=== PATIENT | male | born 1980 | race African-American/Black ===

== ENCOUNTER 2016-07-25 16:53 | Inpatient (IN) | payer OTHER ==
[~2016-07-25] VITALS: Ht 182.9 cm; Wt 66.8 kg
[2016-07-25] MEDS ORDERED: ONDANSETRON INJ 2 MG/ML 2 ML VIAL IV STA (17:15)
[2016-07-25] MEDS ORDERED: SODIUM CHLORIDE 0.9% 1000ML 1,000 ML IV STA (17:15)
[2016-07-25] MEDS ORDERED: MoRPHine SULFATE 10 MG/ML CARP/VIAL IV STA (17:15)
[2016-07-25] MEDS ORDERED: LEVAQUIN 750MG / 150ML D5W IV STA (17:22)
[2016-07-25] MEDS ORDERED: METRONIDAZOLE 500MG / 100ML NSS IV STA (17:22)
--- NOTE | 2016-07-25 17:25 | EMERGENCY ROOM VISIT NOTE ---
ED Visit Note First contact with patient: 17:03 This Patient was discussed with the physician leasing assistant, Faisal Zamora PA-C. The pertinent historical and physical exam findings were confirmed. I agree with the studies ordered and with the interpretations of these studies. I agree with the disposition and care plan.
[2016-07-25] MEDS ORDERED: OPTIRAY 320 IV PRN (17:30)
[2016-07-25 17:34] LABS: BASO % 0.1 %; BASO ABS # 0.01 K/uL (0-0.2); COMPLETE YES; EOS % 1.4 %; HEMATOCRIT 38.2 % (42-52); IG% 0.4 %; LYMPH % 29.5 %; LYMPH ABS # 3.22 K/uL (1.2-3.4); MEAN CELL VOLUME 96.7 fL (80-100); MEAN CORPUSCULAR HEMOGLOBIN 33.4 pg (25-34); MEAN CORPUSCULAR HGB CONC 34.6 g/dl (32-36); MEAN PLATELET VOLUME 8.7 fL (7.4-10.4); MONO % 6.6 %; PLATELET COUNT 479 K/uL (130-400); RED BLOOD COUNT 3.95 M/uL (4.7-6.1); WHITE BLOOD COUNT 10.91 K/uL (4.8-10.8)
--- NOTE | 2016-07-25 17:37 | EMERGENCY ROOM VISIT NOTE ---
History First contact with patient: 17:03 Chief Complaint: OTHER COMPLAINT Stated Complaint: PERICECTAL ABCESS History of Present Illness The patient is a 36 year old male who presents to the Emergency Room via private vehicle with complaints of "perirectal abscess". The patient states that he has a history of perirectal abscesses, of which began in 2002 or 2003. He states that periodically he will develop these and has had to have surgery for drainage in the past. He notes that most recently they began to drain in the perirectal region this past week, and he is worried because they are more painful, swelling and draining more. He does have a penicillin allergy. He denies any fevers, chills, abdominal pain. He rates the overall pain as an 8-9/ 10 in the perirectal region. He denies any alcohol use. He last ate food yesterday evening. Review of Systems A complete 10-point Review of Systems was discussed with the patient, with pertinent positives and negatives listed in the History of Present Illness. All remaining Review of Systems questions can be considered negative unless otherwise specified. Past Medical/Surgical History Medical Problems: (1) Depression (2) Paranoid schizophrenia (3) Perirectal abscess (4) Tobacco Use Disorder Family History Diabetes mellitus Hypertension Kidney disease or stones Social History Smoking Status: Current Every Day Smoker Alcohol Use: occasionally Marital Status: single Housing Status: lives alone Occupation Status: disabled Current/Historical Medications No Active Prescriptions or Reported Meds Allergies Coded Allergies: Penicillins (Verified Allergy, Unknown, A CHILD, HAD MEFOXIN IN 2008 WITHOUT PROBLEM, 04/25/16) Physical Exam Vital Signs Date Time Temp Pulse Resp B/P Pulse Ox O2 Delivery O2 Flow Rate FiO2 07/25/16 18:14 94 16 107/62 97 07/25/16 16:56 36.5 73 20 133/73 97 Room Air Physical Exam VITAL SIGNS - Vital signs and nursing notes were reviewed. GENERAL -36-year-old male appearing his stated age who is in no acute distress. The patient does present with poor concentration, does appear suspicious of surroundings. It is noted he has a past medical history of paranoid schizophrenia. Communicates well with provider and answers questions appropriately. SKIN - Without rashes. After verifying consent, the rectal area was examined, and bilateral fluctuant, indurated and tender areas were appreciated. This is consistent with a perirectal abscess. HEAD - NC/AT. EYES -Sclera anicteric. Palpebral conjunctiva pink and moist with no injection noted. LUNGS - Chest wall symmetric without accessory muscle use, intercostals retractions, or central cyanosis. Normal vesicular breath sounds CTA B/L. No wheezes, rales, or rhonchi appreciated. CARDIAC - RRR with S1/S2. No murmur, rubs, or gallops appreciated. Medical Decision & Procedures ER Provider Diagnostic Interpretation: CT pelvis PELVIS W/IV CONT ONLY (CT) CLINICAL HISTORY: Perirectal abscess inflammation TECHNIQUE: Transaxial acquisition with multi axial reformatted images COMPARISON STUDY: 08/28/2013 FINDINGS: Considerable skin thickening and probable underlying soft tissue cellulitis involving the gluteal cleft regions. The degree of skin thickening is markedly increased as compared to the prior study although well-defined drainable abscess or collection is not easily appreciated. There is a mild degree of a perirectal wall edema. There is also inflammatory change extending to a region posterior to the coccyx. Parapelvic of this tissue appears to be granulation, chronic inflammatory tissue again with no well-defined collection or abscess. The possibility of a very early phlegmon formation posterior and inferior to the coccyx is is considered although again a drainable collection is not appreciated. Pelvis itself shows bladder is midline. Bowel pattern is considered nonobstructive. There are several intermediate size reactive nodes. There are several reactive nodes in the inguinal regions bilaterally with nodes measuring up to 1.5 cm in the right as well as left inguinal region. There is no acute bony involvement. IMPRESSION: 1. Perirectal and gluteal cleft infiltrative/skin thickening-type change. 2. This is associated with general bilateral subcutaneous cellulitis-type change. 3. Although there may be very early small phlegmon formation posterior and inferior to the coccyx at the level of the gluteal cleft, at this time a drainable abscess or collection is not felt to be present. 4. Significant reactive inguinal adenopathy bilaterally. Electronically signed by: Hemal Duque M.D. 07/25/2016 6:25 PM Dictated Date/Time: 07/25/2016 6:20 PM Laboratory Results 07/25/16 17:20 Red Blood Count 3.95, Mean Corpuscular Volume 96.7, Mean Corpuscular Hemoglobin 33.4, Mean Corpuscular Hemoglobin Concent 34.6, Mean Platelet Volume 8.7, Neutrophils (%) (Auto) 62.0, Lymphocytes (%) (Auto) 29.5, Monocytes (%) (Auto) 6.6, Eosinophils (%) (Auto) 1.4, Basophils (%) (Auto) 0.1, Neutrophils # (Auto) 6.77, Lymphocytes # (Auto) 3.22, Monocytes # (Auto) 0.72, Eosinophils # (Auto) 0.15, Basophils # (Auto) 0.01 07/25/16 17:20 Test 07/25/16 17:00 07/25/16 17:12 07/25/16 17:20 Prothrombin Time 11.5 SECONDS (9.0-12.0) Prothromb Time International Ratio 1.1 (0.9-1.1) Activated Partial Thromboplast Time 31.3 SECONDS (21.0-31.0) Partial Thromboplastin Ratio 1.2 Bedside Hemoglobin 14.3 g/dl (14.0-18.0) Bedside Hematocrit 42 % (42-52) Bedside Sodium 140 mEq/L (135-144) Bedside Potassium 3.3 mEq/L (3.3-5.0) Bedside Chloride 98 mEq/L (101-112) Bedside Total CO2 28 mEq/l (24-31) Bedside Blood Urea Nitrogen 4 mg/dl (7-18) Bedside Creatinine 0.7 mg/dl (0.6-1.3) Bedside Glucose (other) 127 mg/dl (70-99) Bedside Ionized Calcium (Marianna) 1.11 mmol/l (1.12-1.32) White Blood Count 10.91 K/uL (4.8-10.8) Red Blood Count 3.95 M/uL (4.7-6.1) Hemoglobin 13.2 g/dL (14.0-18.0) Hematocrit 38.2 % (42-52) Mean Corpuscular Volume 96.7 fL (80-100) Mean Corpuscular Hemoglobin 33.4 pg (25-34) Mean Corpuscular Hemoglobin Concent 34.6 g/dl (32-36) Platelet Count 479 K/uL (130-400) Mean Platelet Volume 8.7 fL (7.4-10.4) Neutrophils (%) (Auto) 62.0 % Lymphocytes (%) (Auto) 29.5 % Monocytes (%) (Auto) 6.6 % Eosinophils (%) (Auto) 1.4 % Basophils (%) (Auto) 0.1 % Neutrophils # (Auto) 6.77 K/uL (1.4-6.5) Lymphocytes # (Auto) 3.22 K/uL (1.2-3.4) Monocytes # (Auto) 0.72 K/uL (0.11-0.59) Eosinophils # (Auto) 0.15 K/uL (0-0.5) Basophils # (Auto) 0.01 K/uL (0-0.2) RDW Standard Deviation 48.2 fL (36.4-46.3) RDW Coefficient of Variation 13.7 % (11.5-14.5) Immature Granulocyte % (Auto) 0.4 % Immature Granulocyte # (Auto) 0.04 K/uL (0.00-0.02) Anion Gap 10.0 mmol/L (3-11) Est Creatinine Clear Calc Drug Dose 105.0 ml/min Estimated GFR () 124.3 Estimated GFR (Non- 107.3 BUN/Creatinine Ratio 5.5 (10-20) Calcium Level 8.5 mg/dl (8.5-10.1) Magnesium Level 2.2 mg/dl (1.8-2.4) Total Bilirubin 0.5 mg/dl (0.2-1) Aspartate Amino Transf (AST/SGOT) 11 U/L (15-37) Alanine Aminotransferase (ALT/SGPT) 10 U/L (12-78) Alkaline Phosphatase 86 U/L (45-117) Total Protein 7.8 gm/dl (6.4-8.2) Albumin 3.6 gm/dl (3.4-5.0) Globulin 4.2 gm/dl (2.5-4.0) Albumin/Globulin Ratio 0.9 (0.9-2) Medications Administered Medications (Trade) Dose Ordered Sig/Danette Route Start Time Stop Time Status Last Admin Dose Admin Morphine Sulfate (MoRPHine SULFATE INJ) 6 mg NOW STAT IV 07/25/16 17:15 07/25/16 17:18 DC 07/25/16 17:50 6 MG Ondansetron HCl 4 mg 4 mg NOW STAT IV 07/25/16 17:15 3/5/17 17:18 DC 07/25/16 17:51 4 MG Sodium Chloride (Nss 1000ml) 1,000 ml @ 200 mls/hr Q5H STAT IV 07/25/16 17:15 07/25/16 19:54 DC 07/25/16 17:51 200 MLS/HR Levofloxacin (Levaquin / D5W) 750 mg NOW STAT IV 07/25/16 17:22 07/25/16 17:23 DC 07/25/16 18:16 750 MG Metronidazole (Flagyl / Nss) 500 mg NOW STAT IV 07/25/16 17:22 07/25/16 17:23 DC 07/25/16 17:51 500 MG Potassium Chloride (Klor-Con M10) 40 meq NOW ONCE PO 07/25/16 18:15 07/25/16 18:40 DC 07/25/16 21:57 40 MEQ Medical Decision Patient was seen and evaluated as above. After obtaining a thorough history and physical examination I did initially discuss the case with my attending secondary to the nature of the patient's perirectal abscess. We both evaluated the patient. IV access was initiated, and the above labs were performed. Case was discussed at 5:30 PM with the on-call general surgeon, Dr. Valladares. He agreed to evaluate the patient A CT scan of the pelvis was also obtained with IV contrast. This revealed infectious change, with no drainable abscess. Clinically it appears that he will need surgical intervention and potential drainage. He was given Flagyl and Levaquin here in the emergency department, and was hydrated slowly with 200 mL's per hour of normal saline. The patient tolerated this well and also wanted something for pain, therefore he was given 6 mg of morphine and 4 mg of Zofran for any potential nausea. He had no other complaints. The decision was then made to admit the patient for potential surgical repair tomorrow. Please refer to further documentation regarding his stay. In regard to the patient's laboratory studies, there is mild leukocytosis at 10.9, as well as anemia with hemoglobin of 13.2, platelet count was 479, potassium was low at 3, BUN low at 5, other labs stable. His vital signs are stable, and he is afebrile. I do believe that he'll benefit from inpatient admission and surgical drainage. Please refer to further documentation regarding his stay. In the evaluation and treatment of this patient following differential diagnoses were entertained: Perirectal abscess, cellulitis, sepsis, among others. Impression Primary Impression: Perirectal abscess Additional Impressions: Anemia Hypokalemia Elevated platelet count Departure Information Dispostion Admitted as an inpatient Condition FAIR Prescriptions No Active Prescriptions or Reported Meds Referrals Gopal Beckett M.D. (PCP) Patient Instructions My [facility] Problem Qualifiers Additional Impressions:
[2016-07-25 17:45] LABS: ISTAT CREATININE 0.7 mg/dl (0.6-1.3); ISTAT HEMOGLOBIN 14.3 g/dl (14.0-18.0); ISTAT IONIZED CALCIUM 1.11 mmol/l (1.12-1.32)
[2016-07-25 17:51] LABS: BUN/CREATININE RATIO 5.5 (10-20); CALCIUM 8.5 mg/dl (8.5-10.1); CREATININE 0.91 mg/dl (0.60-1.40)
[2016-07-25 17:54] LABS: ALB/GLOB RATIO 0.9 (0.9-2)
--- NOTE | 2016-07-25 18:02 | History and Physical ---
History & Physical Date Jul 25, 2016. Chief Complaint anal pain, drainage History of Present Illness The patient is a 36 year old male with complaints of perianal pain and drainage h/o perirectal abscesses w/ drainage Past Medical/Surgical History Medical Problems: (1) Abscess of buttock (2) Depression (3) Noncompliance with treatment (4) Paranoid schizophrenia (5) Tobacco Use Disorder Additional History Hepatic Disease: No Endocrine Disorder: No Kidney Disease: No Hypertension: No Heart Disease: No Other: paranoid schizo, depression, smoker Allergies Coded Allergies: Penicillins (Verified Allergy, Unknown, A CHILD, HAD MEFOXIN IN 2008 WITHOUT PROBLEM, 04/25/16) Physical Examination Skin: warm/dry, no rash Head: atraumatic Neck: supple Respiratory/Chest: normal breath sounds, no respiratory distress Cardiovascular: regular rate, rhythm Abdomen / GI: non tender Extremities: normal inspection Neurologic/Psych: alert Addiitonal Comments: has bilateral perianal induration , tenderness and drainage Diagnosis bilateral perirectal abscesses Plan of Treatment admit, atbx CT pelvis OR incision and drainage ask [employer] to see
[2016-07-25] MEDS ORDERED: POTASSIUM CHLORIDE 10 MEQ TABCR PO ONE (18:15)
--- NOTE | 2016-07-25 18:26 | DIAGNOSTIC IMAGING REPORT ---
CT pelvis PELVIS W/IV CONT ONLY (CT) CLINICAL HISTORY: Perirectal abscess inflammation TECHNIQUE: Transaxial acquisition with multi axial reformatted images COMPARISON STUDY: 08/28/2013 FINDINGS: Considerable skin thickening and probable underlying soft tissue cellulitis involving the gluteal cleft regions. The degree of skin thickening is markedly increased as compared to the prior study although well-defined drainable abscess or collection is not easily appreciated. There is a mild degree of a perirectal wall edema. There is also inflammatory change extending to a region posterior to the coccyx. Parapelvic of this tissue appears to be granulation, chronic inflammatory tissue again with no well-defined collection or abscess. The possibility of a very early phlegmon formation posterior and inferior to the coccyx is is considered although again a drainable collection is not appreciated. Pelvis itself shows bladder is midline. Bowel pattern is considered nonobstructive. There are several intermediate size reactive nodes. There are several reactive nodes in the inguinal regions bilaterally with nodes measuring up to 1.5 cm in the right as well as left inguinal region. There is no acute bony involvement. IMPRESSION: 1. Perirectal and gluteal cleft infiltrative/skin thickening-type change. 2. This is associated with general bilateral subcutaneous cellulitis-type change. 3. Although there may be very early small phlegmon formation posterior and inferior to the coccyx at the level of the gluteal cleft, at this time a drainable abscess or collection is not felt to be present. 4. Significant reactive inguinal adenopathy bilaterally. Electronically signed by: Hemal Duque M.D. 07/25/2016 6:25 PM Dictated Date/Time: 07/25/2016 6:20 PM
[2016-07-25] MEDS ORDERED: PROMETHAZINE HCL INJ 25 MG in SODIUM CHLORIDE 0.9% 50ML 50 ML IV PRN (18:30)
[2016-07-25] MEDS ORDERED: HYDROCODONE/ACETAMOPHEN 5/325MG TAB PO PRN (18:30)
[2016-07-25] MEDS ORDERED: MoRPHine SULFATE 4 MG/ML 1 ML CARP\\VIAL IV PRN (18:30)
[2016-07-25] MEDS ORDERED: MoRPHine SULFATE 2 MG/ML CARP IV PRN (18:30)
[2016-07-25] MEDS ORDERED: ONDANSETRON INJ 2 MG/ML 2 ML VIAL IV PRN (18:30)
[2016-07-25] MEDS ORDERED: PROMETHAZINE HCL INJ 12.5 MG in SODIUM CHLORIDE 0.9% 50ML 50 ML IV PRN (18:45)
--- NOTE | 2016-07-25 18:49 | Medical Consult ---
Consultation Date of Consultation: Jul 25, 2016. Attending Physician: Dr. Valladares Reason for Consultation: Pre Op Evaluation History of Present Illness 36 year old male who presents to the ER with perirectal abscess. Patient reports he has had perirectal abscesses on and off for the past 13 years that have required surgical intervention in the past. He reports a developing perirectal abscess for the past 3-4 days. He reports purulent drainage. He denies fever and chills. He denies pain with bowel movements. Reports he otherwise has been feeling well. He denies chest pain and shortness of breath. No lightheadedness, dizziness, diaphoresis, or syncopal events. No abdominal pain, nausea, vomiting, or diarrhea. He denies urinary symptoms. Patient was evaluated by general surgery in the ED who will admit the patient and plan on surgical intervention tomorrow. Patient is hemodynamically stable. He was given IVF, Levaquin, and Flagyl in the ED. 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 Family History FH: breast cancer MOTHER Social History Smoking Status: Current Every Day Smoker Alcohol Use: occasionally Allergies Coded Allergies: Penicillins (Verified Allergy, Unknown, A CHILD, HAD MEFOXIN IN 2008 WITHOUT PROBLEM, 04/25/16) Home Medications Active No Active Prescriptions or Reported Medications Current Inpatient Medications Current Inpatient Medications Medications (Trade) Dose Ordered Sig/Danette Route Start Time Stop Time Status Last Admin Dose Admin Sodium Chloride (Nss 1000ml) 1,000 ml @ 200 mls/hr Q5H STAT IV 07/25/16 17:15 07/25/16 22:14 07/25/16 17:51 200 MLS/HR Ioversol (Optiray 320) 100 ml UD PRN IV 07/25/16 17:30 07/29/16 17:29 Review of Systems 10 point review of systems was completed with the pertinent positives and negatives noted per the HPI Physical Exam Date Time Temp Pulse Resp B/P Pulse Ox O2 Delivery O2 Flow Rate FiO2 07/25/16 16:56 36.5 73 20 133/73 97 Room Air please refer to Dr. Elena's addendum for physical exam Laboratory Results Last 24 Hours Test 07/25/16 17:12 07/25/16 17:20 Bedside Hemoglobin 14.3 g/dl Bedside Hematocrit 42 % Bedside Sodium 140 mEq/L Bedside Potassium 3.3 mEq/L Bedside Chloride 98 mEq/L Bedside Total CO2 28 mEq/l Anion Gap 18.0 mmol/L 10.0 mmol/L Bedside Blood Urea Nitrogen 4 mg/dl Bedside Creatinine 0.7 mg/dl Bedside Glucose (other) 127 mg/dl Bedside Ionized Calcium (Marianna) 1.11 mmol/l White Blood Count 10.91 K/uL Red Blood Count 3.95 M/uL Hemoglobin 13.2 g/dL Hematocrit 38.2 % Mean Corpuscular Volume 96.7 fL Mean Corpuscular Hemoglobin 33.4 pg Mean Corpuscular Hemoglobin Concent 34.6 g/dl Platelet Count 479 K/uL Mean Platelet Volume 8.7 fL Neutrophils (%) (Auto) 62.0 % Lymphocytes (%) (Auto) 29.5 % Monocytes (%) (Auto) 6.6 % Eosinophils (%) (Auto) 1.4 % Basophils (%) (Auto) 0.1 % Neutrophils # (Auto) 6.77 K/uL Lymphocytes # (Auto) 3.22 K/uL Monocytes # (Auto) 0.72 K/uL Eosinophils # (Auto) 0.15 K/uL Basophils # (Auto) 0.01 K/uL RDW Standard Deviation 48.2 fL RDW Coefficient of Variation 13.7 % Immature Granulocyte % (Auto) 0.4 % Immature Granulocyte # (Auto) 0.04 K/uL Sodium Level 139 mmol/L Potassium Level 3.0 mmol/L Chloride Level 102 mmol/L Carbon Dioxide Level 27 mmol/L Blood Urea Nitrogen 5 mg/dl Creatinine 0.91 mg/dl Est Creatinine Clear Calc Drug Dose 105.0 ml/min Estimated GFR () 124.3 Estimated GFR (Non- 107.3 BUN/Creatinine Ratio 5.5 Random Glucose 118 mg/dl Calcium Level 8.5 mg/dl Total Bilirubin 0.5 mg/dl Aspartate Amino Transf (AST/SGOT) 11 U/L Alanine Aminotransferase (ALT/SGPT) 10 U/L Alkaline Phosphatase 86 U/L Total Protein 7.8 gm/dl Albumin 3.6 gm/dl Globulin 4.2 gm/dl Albumin/Globulin Ratio 0.9 Assessment & Plan PERIRECTAL ABSCESS - admitted to med/surg under general surgery service - patient has history of recurrent perirectal abscesses that have required I/D in the past - no signs of sepsis - per surgery - Rocephin (noted PCN allergy however patient has tolerate cephalosporins in the past) and Flagyl - to OR tomorrow for I/D - wound cultures to be obtained in OR - check EKG; if no acute changes and due to patient's lack of cardiopulmonary history and complaints, patient can proceed to the OR and be considered low risk HYPOKALEMIA - replace, follow up labs in AM - check Mg+ PARANOID SCHIZOPHRENIA/DEPRESSION - patient reports he hasn't taken his meds in one year - appears stable DVT PROPHYLAXIS - SCDs due to OR Attending Note: Patient is a 36 Yr old male with PMH of Paranoid Schizophrenia, Depression, Tobacco use, Rectal abscess presents with history of rectal pain and drainage since 3-4 days. Patient had multiple I & Ds in the past. He is currently not on any psychiatric medications since 1yr. Denies any fever, chills, blood in stools or bleeding from rectal region. Patient is not a good historian. Physical Exam: Vitals signs as noted above General Appearance:Thin, No distress Head: normocephalic, Atraumatic Eyes: normal inspection, EOMI, PERRLA Neck: supple, Trachea midline Respiratory/Chest: Normal breath sounds, CTA, No accessory muscle use Cardiovascular: S1, S2, No murmur Abdomen/GI:Soft, Non tender, Bowel sounds present : + Rectal abscess. No drainage noted Extremities/Musculoskelatal:normal inspection, no calf tenderness, no edema Neurologic/Psych:AAOX3, grossly no focal neurological deficits Skin:normal color,warm Assessment and Plan: Recurrent Perirectal abscess: Pain control IV antibiotics Planned for I&D tomorrow NPO after midnight Surgery on board IV fluids Check EKG DVT Px: Heparin SQ I personally reviewed the record. Patient is interviewed and examined at bedside. Patient's care is coordinated with Nisa Abel NP. Please refer to the documentation above for details of patient's presentation and for discussion of other issues.
[2016-07-25 20:00] VITALS: BP 121/79; PULSE 74; TEMP 37.1; O2SAT 100
[2016-07-25 20:01] VITALS: BP 121/79; PULSE 74; TEMP 37.1; Ht 182.9 cm; Wt 66.8 kg
[2016-07-25 20:24] LABS: INR 1.1 (0.9-1.1); PARTIAL THROMBOPLASTIN RATIO 1.2; PROTHROMBIN TIME (PATIENT) 11.5 SECONDS (9.0-12.0)
[2016-07-25] MEDS: CEFTRIAXONE SOD INJ 1 GM in DEXTROSE 5% ADD-VANTAGE 50ML 50 ML IV SCH (20:37)
[2016-07-25] MEDS: DOCUSATE SODIUM/SENNA 50/8.6MG TAB PO SCH (22:34)
[2016-07-25] MEDS: LACTATED RINGER'S 1000ML 1,000 ML IV SCH (22:36)
[2016-07-25 23:05] VITALS: BP 100/64; PULSE 75; TEMP 36.9; O2SAT 98
[2016-07-25] MEDS: HYDROCODONE/ACETAMOPHEN 5/325MG TAB PO PRN (23:15)
[2016-07-26] VITALS (11 sets, daily range): BP systolic 90–164; BP diastolic 50–73; PULSE 50–115; TEMP 36.5–36.8; O2SAT 95–100
[2016-07-26] MEDS: METRONIDAZOLE / NSS 500 MG in PREMIXED NSS 100 ML IV SCH ×3 (01:35→18:05)
--- NOTE | 2016-07-26 06:20 | Surgery Progress Note ---
Surgery Progress Note Date of Service Jul 26, 2016. Subjective for OR this am Objective Vital Signs: Date Time Temp Pulse Resp B/P Pulse Ox O2 Delivery O2 Flow Rate FiO2 07/26/16 06:07 36.5 59 16 95/58 100 Room Air 07/25/16 23:10 Room Air 07/25/16 23:05 36.9 75 16 100/64 98 Room Air 07/25/16 22:07 Room Air 07/25/16 20:01 37.1 74 16 121/79 Room Air 07/25/16 20:00 37.1 74 16 121/79 100 Room Air 07/25/16 19:08 94 16 106/74 99 07/25/16 18:14 94 16 107/62 97 07/25/16 16:56 36.5 73 20 133/73 97 Room Air General Appearance: no apparent distress Respiratory/Chest: no respiratory distress Laboratory Results: Results Past 24 Hours Test 07/25/16 17:00 07/25/16 17:12 07/25/16 17:20 07/26/16 04:44 Range/Units Prothrombin Time 11.5 9.0-12.0 SECONDS Prothromb Time International Ratio 1.1 0.9-1.1 Activated Partial Thromboplast Time 31.3 21.0-31.0 SECONDS Partial Thromboplastin Ratio 1.2 Bedside Hemoglobin 14.3 14.0-18.0 g/dl Bedside Hematocrit 42 42-52 % Bedside Sodium 140 135-144 mEq/L Bedside Potassium 3.3 3.3-5.0 mEq/L Bedside Chloride 98 101-112 mEq/L Bedside Total CO2 28 24-31 mEq/l Anion Gap 18.0 10.0 3-11 mmol/L Bedside Blood Urea Nitrogen 4 7-18 mg/dl Bedside Creatinine 0.7 0.6-1.3 mg/dl Bedside Glucose (other) 127 70-99 mg/dl Bedside Ionized Calcium (Marianna) 1.11 1.12-1.32 mmol/l White Blood Count 10.91 4.8-10.8 K/uL Red Blood Count 3.95 4.7-6.1 M/uL Hemoglobin 13.2 14.0-18.0 g/dL Hematocrit 38.2 42-52 % Mean Corpuscular Volume 96.7 80-100 fL Mean Corpuscular Hemoglobin 33.4 25-34 pg Mean Corpuscular Hemoglobin Concent 34.6 32-36 g/dl Platelet Count 479 130-400 K/uL Mean Platelet Volume 8.7 7.4-10.4 fL Neutrophils (%) (Auto) 62.0 % Lymphocytes (%) (Auto) 29.5 % Monocytes (%) (Auto) 6.6 % Eosinophils (%) (Auto) 1.4 % Basophils (%) (Auto) 0.1 % Neutrophils # (Auto) 6.77 1.4-6.5 K/uL Lymphocytes # (Auto) 3.22 1.2-3.4 K/uL Monocytes # (Auto) 0.72 0.11-0.59 K/uL Eosinophils # (Auto) 0.15 0-0.5 K/uL Basophils # (Auto) 0.01 0-0.2 K/uL RDW Standard Deviation 48.2 36.4-46.3 fL RDW Coefficient of Variation 13.7 11.5-14.5 % Immature Granulocyte % (Auto) 0.4 % Immature Granulocyte # (Auto) 0.04 0.00-0.02 K/uL Sodium Level 139 136-145 mmol/L Potassium Level 3.0 3.5-5.1 mmol/L Chloride Level 102 98-107 mmol/L Carbon Dioxide Level 27 21-32 mmol/L Blood Urea Nitrogen 5 7-18 mg/dl Creatinine 0.91 0.60-1.40 mg/dl Est Creatinine Clear Calc Drug Dose 105.0 ml/min Estimated GFR () 124.3 Estimated GFR (Non- 107.3 BUN/Creatinine Ratio 5.5 10-20 Random Glucose 118 70-99 mg/dl Calcium Level 8.5 8.5-10.1 mg/dl Magnesium Level 2.2 1.8-2.4 mg/dl Total Bilirubin 0.5 0.2-1 mg/dl Aspartate Amino Transf (AST/SGOT) 11 15-37 U/L Alanine Aminotransferase (ALT/SGPT) 10 12-78 U/L Alkaline Phosphatase 86 45-117 U/L Total Protein 7.8 6.4-8.2 gm/dl Albumin 3.6 3.4-5.0 gm/dl Globulin 4.2 2.5-4.0 gm/dl Albumin/Globulin Ratio 0.9 0.9-2 Assessment & Plan 07/26/16- no acute changes- for OR this am Incision/ Drainage perirectal abscesses
[2016-07-26] MEDS ORDERED: ONDANSETRON INJ 2 MG/ML 2 ML VIAL ONE (06:40)
[2016-07-26] MEDS ORDERED: PROPOFOL IV EMULSION 10 MG/ML 20 ML VIAL IV ONE ×2 (06:40→08:10)
[2016-07-26] MEDS ORDERED: DEXAMETHASONE SOD INJ 4 MG/ML VIAL ONE (06:40)
[2016-07-26] MEDS ORDERED: ROCURONIUM BROMIDE 10 MG/ML 5 ML VIAL ONE (06:40)
[2016-07-26] MEDS ORDERED: GLYCOPYRROLATE INJ 0.2 MG/ML VIAL ONE (06:40)
[2016-07-26] MEDS ORDERED: NEOSTIGMINE METHYLSULFATE 5 MG/5 ML SYR ONE (06:40)
[2016-07-26] MEDS ORDERED: LIDOCAINE HCL 2% 2 ML VIAL (20MG/ML) ONE (06:40)
[2016-07-26] MEDS ORDERED: MIDAZOLAM HCL 1 MG/ML 2ML VIAL ONE (06:41)
[2016-07-26] MEDS ORDERED: FENTANYL CITRATE INJ 50 MCG/1 ML 2 ML VIAL ONE (06:41)
[2016-07-26] MEDS ORDERED: BUPIVACAINE 0.5 % 5 MG/1 ML MPF 30ML VIAL ONE (07:23)
[2016-07-26] MEDS ORDERED: PHENYLEPHRINE 100MCG/ML 5ML SYR IV PRN (08:00)
[2016-07-26] MEDS ORDERED: HYDROmorphone INJ 2 MG/ML SYR/VIAL IV PRN (08:00)
[2016-07-26] MEDS ORDERED: ATROPINE SULFATE 0.1 MG/ML 5ML SYR IV PRN (08:00)
[2016-07-26] MEDS ORDERED: ONDANSETRON INJ 2 MG/ML 2 ML VIAL IV PRN (08:00)
[2016-07-26] MEDS ORDERED: EpHEDrine SULFATE INJ 50 MG/ML AMP IV PRN (08:00)
--- NOTE | 2016-07-26 08:19 | [facility] Post Operative Brief Note ---
Immediate Operative Summary Operative Date Jul 26, 2016. Pre-Operative Diagnosis Paige-rectal abscess Post-Operative Diagnosis gluteal cutaneous sinus tracts Procedure(s) Performed Incision and Drainage Gluteal Cutaneous Sinus Tracts Seton placement on Lt side Surgeon Dr. Valladares Material Handler 1St Shift Surgeon(s) none Estimated Blood Loss 100 ml Findings multiple Large gluteal cutaneous sinus tracts Specimens none per surgeon Drains # 4 silk seton Lt side Anesthesia gen Complication(s) None Disposition Recovery Room / PACU
[2016-07-26] MEDS ORDERED: HYDROmorphone INJ 1 MG/ML SYR ONE (08:31)
--- NOTE | 2016-07-26 08:54 | Anesthesiology Progress Note ---
Anesthesia Post Op Note Date & Time Jul 26, 2016 at 08:54 Vital Signs Pain Intensity: 6 Vital Signs Past 12 Hours Date Time Temp Pulse Resp B/P Pulse Ox O2 Delivery O2 Flow Rate FiO2 07/26/16 08:35 66 15 116/74 100 Nasal Cannula 2 07/26/16 08:25 61 15 123/76 100 Mask 10 07/26/16 08:15 80 13 132/57 100 Mask 10 07/26/16 08:06 36.2 65 14 102/57 100 Mask 10 07/26/16 06:07 36.5 59 16 95/58 100 Room Air 07/25/16 23:10 Room Air 07/25/16 23:05 36.9 75 16 100/64 98 Room Air 07/25/16 22:07 Room Air Notes Mental Status: alert / awake / arousable, participated in evaluation Pt Amnestic to Procedure: Yes Nausea / Vomiting: adequately controlled Pain: adequately controlled Airway Patency, RR, SpO2: stable & adequate BP & HR: stable & adequate Hydration State: stable & adequate Anesthetic Complications: no major complications apparent
[2016-07-26] MEDS: DOCUSATE SODIUM/SENNA 50/8.6MG TAB PO SCH ×2 (09:00→20:35)
[2016-07-26] MEDS: LACTATED RINGER'S 1000ML 1,000 ML IV SCH ×2 (09:26→20:36)
--- NOTE | 2016-07-26 11:24 | Progress Note ---
Progress Note Date of Service Jul 26, 2016. Progress Note ID Consult Dictated #[id number] A/P: 1. Perirectal abscess 2. Leukocytosis -Continue abx, await OR findings -would obtain culture if drainage persists -will follow, thank you
--- NOTE | 2016-07-26 12:05 | INFECT. DISEASE CONSULTATION ---
DATE OF CONSULTATION: 07/26/2016 DATE OF CONSULTATION: 07/26/2016. REQUESTING PHYSICIAN: Dr. Valladares. HISTORY OF PRESENT ILLNESS: This is a 36-year-old gentleman who presented to the Emergency Room on 07/25/2016 with a perirectal abscess and associated pain. He states he has had recurrent abscesses for the past 13 years which have required multiple surgical interventions in the past. He did notice worsening pain and drainage 3-4 days prior to admission to the hospital. He denies any associated fevers or chills with this. He denies any bleeding associated with this. He was admitted to the hospital and he was placed on empiric antibiotics. He did undergo I\T\D earlier this morning. He tolerated this procedure well. He is seen postoperatively. He currently denies any pain. He was placed empirically on ceftriaxone and metronidazole. He has been afebrile since admission. Infectious diseases was consulted to help with antibiotic management. His white blood cell count was 10.9. He is currently resting in bed and appears comfortable. He did eat this morning and denies any nausea, vomiting or diarrhea. All remaining review of systems are reviewed and are negative. PAST MEDICAL HISTORY: Significant for depression, schizophrenia and recurrent perirectal abscesses. PAST SURGICAL HISTORY: Significant for drainage of recurrent abscesses. FAMILY HISTORY: Noncontributory. SOCIAL HISTORY: Significant for daily tobacco use. He does admit to drinking occasionally. He denies any illicit drug use. ALLERGIES: HE HAS NO KNOWN ALLERGY TO PENICILLIN. CURRENT MEDICATIONS: Include subQ heparin, Dilaudid, Zofran, Ephedrine, atropine, metronidazole, Senokot, ceftriaxone, promethazine, Percocet, morphine, Zofran. PHYSICAL EXAMINATION: VITAL SIGNS: He is afebrile since admission to the hospital, pulse 50, respiratory rate 16, blood pressure 90/54, oxygen saturation is 100% on room air. GENERAL: He is awake, alert and oriented x3. He is in no acute distress. HEAD, EYES, EARS, NOSE, AND THROAT: Mucous membranes are moist. Extraocular muscles are intact. HEART: Regular. There is no murmur. LUNGS: Clear bilaterally. ABDOMEN: Soft, nontender, nondistended. EXTREMITIES: There is no lower extremity edema bilaterally. SKIN: Without rash. LABORATORY STUDIES: CBC done yesterday reveals a white blood cell count of 10.9, hemoglobin 13.2, platelets are 479. Chemistry panel yesterday reveals a sodium of 139, potassium 3.0, BUN 5, creatinine 0.9, glucose is 118. LFTs are within normal limits. Last abscess culture is from September 2014 which grew peptostreptococcus. No micros ordered for this admission. A CT of the pelvis was done in the ER yesterday which shows perirectal and gluteal infiltrative changes, questionable very early small phlegmon formation. No drainable abscess was identified. OP note is pending. ASSESSMENT AND PLAN: Perirectal abscess. He will continue on empiric antibiotics. If there is persistent drainage culture should be obtained. We will follow along with you. Thank you for this consultation.
[2016-07-26 12:35] LABS: BASO % 0.1 %; BASO ABS # 0.01 K/uL (0-0.2); COMPLETE YES; HEMATOCRIT 34.7 % (42-52); IG% 0.2 %; LYMPH % 7.4 %; LYMPH ABS # 0.84 K/uL (1.2-3.4); MEAN CELL VOLUME 95.9 fL (80-100); MEAN CORPUSCULAR HEMOGLOBIN 31.8 pg (25-34); MEAN CORPUSCULAR HGB CONC 33.1 g/dl (32-36); MEAN PLATELET VOLUME 8.3 fL (7.4-10.4); MONO % 0.9 %; NEUT % 91.4 %; PLATELET COUNT 427 K/uL (130-400); RED BLOOD COUNT 3.62 M/uL (4.7-6.1); WHITE BLOOD COUNT 11.28 K/uL (4.8-10.8)
--- NOTE | 2016-07-26 12:42 | OPERATIVE REPORT ---
DATE OF OPERATION: 07/26/2016 NAME OF OPERATION: Incision, drainage and debridement (2 areas - 2x13 cm each = 52 sq cm) of gluteal sinus tracts with Seton placement. PREOPERATIVE DIAGNOSIS: Perirectal abscess. POSTOPERATIVE DIAGNOSIS: Change to large gluteal cutaneous sinus tracts. STAFF SURGEON: Dr. Valladares. ANESTHESIA: General. DESCRIPTION OF PROCEDURE: The patient was brought into the Operating Room and placed on the operating table in the supine position. After appropriate anesthetic, his legs were placed into lithotomy position. His perineum was prepped and draped in the usual fashion. On inspection, he did have palpable indurated areas from anterior to posterior on both sides, which on palpation expressed purulent fluid from openings in the skin both anterior and posterior. It turns out that on probing these, he had very large cutaneous sinus tracts running from the anterior perineum to the posterior buttock area. I was able to open the right side in a V shape with encountering significant granulation tissue. This was curetted and then a packing placed because of the bleeding. Because of the significant wound and bleeding, I did not feel comfortable doing this on the left side also. Therefore, I probed the tract, which appeared to be 1 main tract and placed a double #4 silk Seton from anterior to posterior to create drainage, so that an abscess would not form. Gauze packing was placed on the right side. Dressings applied and then the patient was transferred to Recovery Room in stable condition. Cultures were also taken. I attest to the content of the Intraoperative Record and any orders documented therein. Any exceptions are noted below. MINAL
[2016-07-26 13:07] LABS: BUN/CREATININE RATIO 11.1 (10-20); CALCIUM 8.7 mg/dl (8.5-10.1); CREATININE 0.74 mg/dl (0.60-1.40); POTASSIUM 4.7 mmol/L (3.5-5.1)
[2016-07-26] MEDS: HEPARIN SOD 5000 UNIT/0.5 ML CARP SQ SCH (16:08)
--- NOTE | 2016-07-26 18:59 | Progress Note ---
Internal Med Progress Note Date of Service: Jul 26, 2016. Provider Documentation: SUBJECTIVE: Patient is seen and examined at bedside. States having some rectal pain. Denies any chest pain, SOB, dizziness. Offers no complaints. OBJECTIVE: Vital Signs-as noted below General Appearance:Thin, No distress Head: normocephalic, Atraumatic Eyes: normal inspection, EOMI, PERRLA Neck: supple, Trachea midline Respiratory/Chest: Normal breath sounds, CTA, No accessory muscle use Cardiovascular: S1, S2, No murmur Abdomen/GI:Soft, Non tender, Bowel sounds present : + Rectal abscess S/P I&D in bandage Extremities/Musculoskelatal:normal inspection, no calf tenderness, no edema Neurologic/Psych:AAOX3, grossly no focal neurological deficits Skin:normal color,warm Lab data as noted below. ASSESSMENT & PLAN: PERIRECTAL ABSCESS S/P Incision and Drainage Gluteal Cutaneous Sinus Tracts, Seton placement on Lt side POD #0 Pain control Continue current IV antibiotics ID on board Surgery following Continue Bowel regimen Gentle IV fluids no signs of sepsis HYPOKALEMIA Resolved Continue to monitor ELEVATED BP: Isolated BP elevation Continue to monitor Will consider meds if HTN persistent PARANOID SCHIZOPHRENIA/DEPRESSION Not on any meds since 1 year stable TOBACCO USE DISORDER: Refused Nicotine patch It Analyst to quit smoking DVT PX Per Primary team Vital Signs: Date Time Temp Pulse Resp B/P Pulse Ox O2 Delivery O2 Flow Rate FiO2 07/26/16 16:15 Room Air 07/26/16 15:49 36.5 67 17 164/50 95 Room Air 07/26/16 14:52 36.8 75 17 105/67 99 Room Air 07/26/16 12:26 71 18 93/59 98 Room Air 07/26/16 11:20 79 16 98/62 97 Room Air 07/26/16 10:25 50 16 90/54 100 Room Air 07/26/16 09:49 69 16 123/67 97 Room Air 07/26/16 09:20 99 Nasal Cannula 2.0 07/26/16 09:20 36.5 58 16 97/64 99 Nasal Cannula 2.0 07/26/16 09:20 Nasal Cannula 2.0 07/26/16 09:10 52 12 91/64 100 Nasal Cannula 2 07/26/16 08:55 36.5 60 12 99/66 100 Nasal Cannula 2 07/26/16 08:45 55 12 103/52 99 Nasal Cannula 2 07/26/16 08:35 66 15 116/74 100 Nasal Cannula 2 07/26/16 08:25 61 15 123/76 100 Mask 10 07/26/16 08:15 80 13 132/57 100 Mask 10 07/26/16 08:06 36.2 65 14 102/57 100 Mask 10 07/26/16 06:07 36.5 59 16 95/58 100 Room Air 07/25/16 23:10 Room Air 07/25/16 23:05 36.9 75 16 100/64 98 Room Air 07/25/16 22:07 Room Air 07/25/16 20:01 37.1 74 16 121/79 Room Air 07/25/16 20:00 37.1 74 16 121/79 100 Room Air Lab Results: Results Past 24 Hours Test 07/26/16 12:25 Range/Units White Blood Count 11.28 4.8-10.8 K/uL Red Blood Count 3.62 4.7-6.1 M/uL Hemoglobin 11.5 14.0-18.0 g/dL Hematocrit 34.7 42-52 % Mean Corpuscular Volume 95.9 80-100 fL Mean Corpuscular Hemoglobin 31.8 25-34 pg Mean Corpuscular Hemoglobin Concent 33.1 32-36 g/dl Platelet Count 427 130-400 K/uL Mean Platelet Volume 8.3 7.4-10.4 fL Neutrophils (%) (Auto) 91.4 % Lymphocytes (%) (Auto) 7.4 % Monocytes (%) (Auto) 0.9 % Eosinophils (%) (Auto) 0.0 % Basophils (%) (Auto) 0.1 % Neutrophils # (Auto) 10.31 1.4-6.5 K/uL Lymphocytes # (Auto) 0.84 1.2-3.4 K/uL Monocytes # (Auto) 0.10 0.11-0.59 K/uL Eosinophils # (Auto) 0.00 0-0.5 K/uL Basophils # (Auto) 0.01 0-0.2 K/uL RDW Standard Deviation 48.1 36.4-46.3 fL RDW Coefficient of Variation 13.9 11.5-14.5 % Immature Granulocyte % (Auto) 0.2 % Immature Granulocyte # (Auto) 0.02 0.00-0.02 K/uL Sodium Level 141 136-145 mmol/L Potassium Level 4.7 3.5-5.1 mmol/L Chloride Level 107 98-107 mmol/L Carbon Dioxide Level 27 21-32 mmol/L Anion Gap 7.0 3-11 mmol/L Blood Urea Nitrogen 8 7-18 mg/dl Creatinine 0.74 0.60-1.40 mg/dl Est Creatinine Clear Calc Drug Dose 129.1 ml/min Estimated GFR () 136.6 Estimated GFR (Non- 117.8 BUN/Creatinine Ratio 11.1 10-20 Random Glucose 117 70-99 mg/dl Calcium Level 8.7 8.5-10.1 mg/dl
[2016-07-26] MEDS: CEFTRIAXONE SOD INJ 1 GM in DEXTROSE 5% ADD-VANTAGE 50ML 50 ML IV SCH (19:42)
[2016-07-26] MEDS: HYDROCODONE/ACETAMOPHEN 5/325MG TAB PO PRN (23:13)
[2016-07-27] MEDS: METRONIDAZOLE / NSS 500 MG in PREMIXED NSS 100 ML IV SCH ×3 (02:15→18:15)
[2016-07-27 04:15] VITALS: BP 113/65; PULSE 64; TEMP 36.8; O2SAT 99
[2016-07-27] MEDS: HEPARIN SOD 5000 UNIT/0.5 ML CARP SQ SCH ×2 (04:22→15:48)
[2016-07-27] MEDS: HYDROCODONE/ACETAMOPHEN 5/325MG TAB PO PRN ×4 (04:32→20:30)
[2016-07-27 06:49] LABS: BUN/CREATININE RATIO 12.8 (10-20); CALCIUM 8.1 mg/dl (8.5-10.1); CREATININE 0.7 mg/dl (0.60-1.40); POTASSIUM 3.8 mmol/L (3.5-5.1)
[2016-07-27 07:56] VITALS: BP 97/63; PULSE 53; TEMP 36.4; O2SAT 100
--- NOTE | 2016-07-27 08:34 | Surgery Progress Note ---
Surgery Progress Note Date of Service Jul 27, 2016. Subjective some mild pain will not allow anyone to repack dressing- would not allow Dr Mata to look I was able to look at wounds, but no touching Objective Vital Signs: Date Time Temp Pulse Resp B/P Pulse Ox O2 Delivery O2 Flow Rate FiO2 07/27/16 07:56 36.4 53 16 97/63 100 Room Air 07/27/16 07:23 Room Air 07/27/16 04:15 36.8 64 16 113/65 99 Room Air 07/26/16 23:15 Room Air 07/26/16 23:15 36.8 79 16 125/69 100 Room Air 07/26/16 21:16 36.7 80 17 115/63 97 Room Air 07/26/16 19:53 36.8 115 18 150/73 99 Room Air 07/26/16 16:15 Room Air 07/26/16 15:49 36.5 67 17 164/50 95 Room Air 07/26/16 14:52 36.8 75 17 105/67 99 Room Air 07/26/16 12:26 71 18 93/59 98 Room Air 07/26/16 11:20 79 16 98/62 97 Room Air 07/26/16 10:25 50 16 90/54 100 Room Air 07/26/16 09:49 69 16 123/67 97 Room Air 07/26/16 09:20 99 Nasal Cannula 2.0 07/26/16 09:20 36.5 58 16 97/64 99 Nasal Cannula 2.0 07/26/16 09:20 Nasal Cannula 2.0 07/26/16 09:10 52 12 91/64 100 Nasal Cannula 2 07/26/16 08:55 36.5 60 12 99/66 100 Nasal Cannula 2 07/26/16 08:45 55 12 103/52 99 Nasal Cannula 2 07/26/16 08:35 66 15 116/74 100 Nasal Cannula 2 General Appearance: no apparent distress Respiratory/Chest: no respiratory distress Incision(s): clean, drainage (mild bloody drainage expected) Laboratory Results: Results Past 24 Hours Test 07/26/16 12:25 07/27/16 05:42 Range/Units White Blood Count 11.28 4.8-10.8 K/uL Red Blood Count 3.62 4.7-6.1 M/uL Hemoglobin 11.5 14.0-18.0 g/dL Hematocrit 34.7 42-52 % Mean Corpuscular Volume 95.9 80-100 fL Mean Corpuscular Hemoglobin 31.8 25-34 pg Mean Corpuscular Hemoglobin Concent 33.1 32-36 g/dl Platelet Count 427 130-400 K/uL Mean Platelet Volume 8.3 7.4-10.4 fL Neutrophils (%) (Auto) 91.4 % Lymphocytes (%) (Auto) 7.4 % Monocytes (%) (Auto) 0.9 % Eosinophils (%) (Auto) 0.0 % Basophils (%) (Auto) 0.1 % Neutrophils # (Auto) 10.31 1.4-6.5 K/uL Lymphocytes # (Auto) 0.84 1.2-3.4 K/uL Monocytes # (Auto) 0.10 0.11-0.59 K/uL Eosinophils # (Auto) 0.00 0-0.5 K/uL Basophils # (Auto) 0.01 0-0.2 K/uL RDW Standard Deviation 48.1 36.4-46.3 fL RDW Coefficient of Variation 13.9 11.5-14.5 % Immature Granulocyte % (Auto) 0.2 % Immature Granulocyte # (Auto) 0.02 0.00-0.02 K/uL Sodium Level 141 143 136-145 mmol/L Potassium Level 4.7 3.8 3.5-5.1 mmol/L Chloride Level 107 108 98-107 mmol/L Carbon Dioxide Level 27 29 21-32 mmol/L Anion Gap 7.0 6.0 3-11 mmol/L Blood Urea Nitrogen 8 9 7-18 mg/dl Creatinine 0.74 0.70 0.60-1.40 mg/dl Est Creatinine Clear Calc Drug Dose 129.1 136.5 ml/min Estimated GFR () 136.6 139.7 Estimated GFR (Non- 117.8 120.6 BUN/Creatinine Ratio 11.1 12.8 10-20 Random Glucose 117 103 70-99 mg/dl Calcium Level 8.7 8.1 8.5-10.1 mg/dl Assessment & Plan 07/27/16- s/p incision , drainage, debridement Rt gluteal cutaneous sinus tracts and #4 double silk seton placed through Lt side- purulence drained- cult pending He will not allow repacking- will likely gradually heal. Gauze cover only- he agrees to stay 1 more day- f/u will be difficult - ? compliance. plan will be d/c home 1-2 days- po atbx, cover wounds- may shower and use sitz bath- hope he comes to office 07/26/16- no acute changes- for OR this am Incision/ Drainage perirectal abscesses 07/26/16- no acute changes- for OR this am Incision/ Drainage perirectal abscesses
[2016-07-27] MEDS: DOCUSATE SODIUM/SENNA 50/8.6MG TAB PO SCH ×2 (08:56→20:29)
--- NOTE | 2016-07-27 13:16 | Surgery Progress Note ---
Surgery Progress Note Date of Service Jul 27, 2016. Subjective see prior note no record of culture swabs from OR Objective Vital Signs: Date Time Temp Pulse Resp B/P Pulse Ox O2 Delivery O2 Flow Rate FiO2 07/27/16 07:56 36.4 53 16 97/63 100 Room Air 07/27/16 07:23 Room Air 07/27/16 04:15 36.8 64 16 113/65 99 Room Air 07/26/16 23:15 Room Air 07/26/16 23:15 36.8 79 16 125/69 100 Room Air 07/26/16 21:16 36.7 80 17 115/63 97 Room Air 07/26/16 19:53 36.8 115 18 150/73 99 Room Air 07/26/16 16:15 Room Air 07/26/16 15:49 36.5 67 17 164/50 95 Room Air 07/26/16 14:52 36.8 75 17 105/67 99 Room Air Laboratory Results: Results Past 24 Hours Test 07/27/16 05:42 Range/Units Sodium Level 143 136-145 mmol/L Potassium Level 3.8 3.5-5.1 mmol/L Chloride Level 108 98-107 mmol/L Carbon Dioxide Level 29 21-32 mmol/L Anion Gap 6.0 3-11 mmol/L Blood Urea Nitrogen 9 7-18 mg/dl Creatinine 0.70 0.60-1.40 mg/dl Est Creatinine Clear Calc Drug Dose 136.5 ml/min Estimated GFR () 139.7 Estimated GFR (Non- 120.6 BUN/Creatinine Ratio 12.8 10-20 Random Glucose 103 70-99 mg/dl Calcium Level 8.1 8.5-10.1 mg/dl Assessment & Plan 07/27/16- see note below- checked on culture swabs from OR yesterday- no record, therefore , we will likely have to treat him empirically as he is not cooperative with wound manipulation. Possible d/c tomorrow 07/27/16- s/p incision , drainage, debridement Rt gluteal cutaneous sinus tracts and #4 double silk seton placed through Lt side- purulence drained- cult pending He will not allow repacking- will likely gradually heal. Gauze cover only- he agrees to stay 1 more day- f/u will be difficult - ? compliance. plan will be d/c home 1-2 days- po atbx, cover wounds- may shower and use sitz bath- hope he comes to office 07/26/16- no acute changes- for OR this am Incision/ Drainage perirectal abscesses 07/27/16- s/p incision , drainage, debridement Rt gluteal cutaneous sinus tracts and #4 double silk seton placed through Lt side- purulence drained- cult pending He will not allow repacking- will likely gradually heal. Gauze cover only- he agrees to stay 1 more day- f/u will be difficult - ? compliance. plan will be d/c home 1-2 days- po atbx, cover wounds- may shower and use sitz bath- hope he comes to office 07/26/16- no acute changes- for OR this am Incision/ Drainage perirectal abscesses
--- NOTE | 2016-07-27 13:20 | Discharge Instructions ---
Discharge Instructions Date of Service Jul 27, 2016. 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 May need to change 2-3 times per day * May shower over buttock areas * May use ibuprofen for pain as tolerated. * Expect some swelling and bruising. Call your doctor if: * Temperature above 101 degrees * Pain not relieved by pain medicine ordered * There is increased drainage or redness from any incision * You have any unanswered questions or concerns [phone]. FOLLOW UP VISIT: If not already scheduled, please call the office for a follow-up visit. for next week- wound check and suture/drain removal in 4-6 weeks OFFICE PHONE NUMBER: Dr. Valladares Office . Current Hospital Diet Patient's current hospital diet: Regular Diet Discharge Diet Recommended Diet: Regular Diet Procedures Procedures Performed: Incision and Drainage Gluteal Cutaneous Sinus Tracts Seton placement on Lt side Pending Studies Studies pending at discharge: no Medical Emergencies . Who to Call and When: Medical Emergencies: If at any time you feel your situation is an emergency, please call 911 immediately. . Non-Emergent Contact Non-Emergency issues call your: Primary Care Provider, Surgeon . "Provider Documentation" section prepared by Benja Valladares. VTE Core Measure Inpt VTE Proph given/why not?: SCD's
[2016-07-27] MEDS ORDERED: HYDR-5688 PO (13:21)
--- NOTE | 2016-07-27 13:55 | Progress Note ---
Subjective Date of Service: Jul 27, 2016. Subjective pt s/p washout, has been refusing exam, dressing change. no cultures for review. tolerating abx. afebrile. Problem List Medical Problems: (1) Anemia Status: Acute (2) Elevated platelet count Status: Acute (3) Hypokalemia Status: Acute (4) Noncompliance with medication regimen Status: Acute (5) Perianal abscess Status: Acute (6) Perianal abscess Status: Acute (7) Perirectal abscess Permanent Comment: hx of recurrent Status: Chronic (8) Schizophrenia Status: Acute Objective Vital Signs Date Time Temp Pulse Resp B/P Pulse Ox O2 Delivery O2 Flow Rate FiO2 07/27/16 07:56 36.4 53 16 97/63 100 Room Air 07/27/16 07:23 Room Air 07/27/16 04:15 36.8 64 16 113/65 99 Room Air 07/26/16 23:15 Room Air 07/26/16 23:15 36.8 79 16 125/69 100 Room Air 07/26/16 21:16 36.7 80 17 115/63 97 Room Air 07/26/16 19:53 36.8 115 18 150/73 99 Room Air 07/26/16 16:15 Room Air 07/26/16 15:49 36.5 67 17 164/50 95 Room Air 07/26/16 14:52 36.8 75 17 105/67 99 Room Air Laboratory Results Last 24 Hours Test 07/27/16 05:42 Sodium Level 143 mmol/L Potassium Level 3.8 mmol/L Chloride Level 108 mmol/L Carbon Dioxide Level 29 mmol/L Anion Gap 6.0 mmol/L Blood Urea Nitrogen 9 mg/dl Creatinine 0.70 mg/dl Est Creatinine Clear Calc Drug Dose 136.5 ml/min Estimated GFR () 139.7 Estimated GFR (Non- 120.6 BUN/Creatinine Ratio 12.8 Random Glucose 103 mg/dl Calcium Level 8.1 mg/dl Assessment and Plan (1) Perirectal abscess Assessment & Plan: can continue with ctx and flagyl while inpatient, can transition to po abx - suggest levaquin 500mg po daily and flagyl 500mg tid for min 14 days post d/c.
[2016-07-27 15:08] VITALS: BP 91/54; PULSE 56; TEMP 36.9; O2SAT 97
--- NOTE | 2016-07-27 15:41 | CONSULTATION REPORT ---
DATE OF CONSULTATION: 07/27/2016 CHIEF COMPLAINT: Abscess formation. HISTORY OF PRESENT ILLNESS: The patient was recently admitted to the [facility] for evaluation of perirectal abscess. The patient has a longstanding history of similar problems in this area, off and on for many years. The patient has had multiple surgeries for this problem. The patient at the current time has undergone incision and drainage and packing of this procedure earlier today. The patient currently is not complaining of any significant pain at this time. The patient denies any other systemic history. The patient is a poor historian. PAST MEDICAL HISTORY: Positive for paranoid schizophrenia, abscess formation of the buttocks and depression. PAST SURGICAL HISTORY: As noted above. MEDICATIONS: Noted in the nurse's notes and were reviewed. ALLERGIES: PENICILLINS. REVIEW OF SYSTEMS: Further system review was deferred at this time due to the patient's lack of cooperation in answering further questions. PHYSICAL EXAMINATION: GENERAL: The patient is lying in the hospital bed, in no apparent distress. VITAL SIGNS: Reviewed and found to be unremarkable. The patient is afebrile. HEENT: Pupils equal and reactive to light. NECK: Supple. CHEST: Heart and lungs clear to auscultation. BUTTOCK: The buttocks region shows the presence of packing to be present in both gluteal regions. There was some bloody appearance to the packing and while attempted to remove, the patient became very distressed and demanded that I stop evaluating him at this time. The patient would not allow me to remove any further of the packing and rolled over into a defiant position. At this point, the physical examination and evaluation was ended. IMPRESSION: Postoperative gluteal abscess and sinus tract formation. PLAN: At this time, the patient as stated above refused any further interaction with myself or the wound care team. Dr. Valladares was notified of this occurrence and he will continue to manage the patient in appropriate fashion. MINAL
[2016-07-27] MEDS: CEFTRIAXONE SOD INJ 1 GM in DEXTROSE 5% ADD-VANTAGE 50ML 50 ML IV SCH (19:35)
[2016-07-27 23:00] VITALS: BP 108/70; PULSE 57; TEMP 36.7; O2SAT 98
[2016-07-28] MEDS: METRONIDAZOLE / NSS 500 MG in PREMIXED NSS 100 ML IV SCH ×2 (01:44→10:11)
[2016-07-28] MEDS: HYDROCODONE/ACETAMOPHEN 5/325MG TAB PO PRN ×2 (01:50→07:43)
[2016-07-28] MEDS: HEPARIN SOD 5000 UNIT/0.5 ML CARP SQ SCH (04:20)
[2016-07-28 05:55] LABS: BASO % 0.1 %; BASO ABS # 0.01 K/uL (0-0.2); COMPLETE YES; EOS % 1.5 %; HEMATOCRIT 34.1 % (42-52); IG% 0.4 %; LYMPH % 43.3 %; LYMPH ABS # 3.42 K/uL (1.2-3.4); MEAN CORPUSCULAR HEMOGLOBIN 32.2 pg (25-34); MEAN CORPUSCULAR HGB CONC 32.8 g/dl (32-36); MEAN PLATELET VOLUME 9.3 fL (7.4-10.4); MONO % 8.5 %; NEUT % 46.2 %; PLATELET COUNT 448 K/uL (130-400); RED BLOOD COUNT 3.48 M/uL (4.7-6.1); WHITE BLOOD COUNT 7.89 K/uL (4.8-10.8)
[2016-07-28 06:21] LABS: BUN/CREATININE RATIO 18.8 (10-20); CALCIUM 8.3 mg/dl (8.5-10.1); CREATININE 0.74 mg/dl (0.60-1.40)
[2016-07-28] MEDS ORDERED: LEVO1TAB33 PO (08:25)
[2016-07-28] MEDS ORDERED: METR-163 PO (08:25)
[2016-07-28 09:43] VITALS: BP 108/70; PULSE 57; TEMP 36.7; O2SAT 98
[2016-07-28] MEDS: DOCUSATE SODIUM/SENNA 50/8.6MG TAB PO SCH (09:49)
--- NOTE | 2016-07-28 14:53 | DISCHARGE SUMMARY ---
PRINCIPAL DIAGNOSIS: Gluteal cutaneous sinus tracts with abscesses. PROCEDURES: The patient underwent incision, drainage and debridement of the gluteal cutaneous sinus tracts. HISTORY OF PRESENT ILLNESS: The patient is a 36-year-old male presenting to the Emergency Room with perianal pain which turned out to be gluteal cutaneous abscesses and sinus tracts. HOSPITAL COURSE: The patient was taken to the operating room on 07/26/2016 where he underwent incision and drainage and debridement of the gluteal cutaneous sinus tracts opening the right side and then placing a large seton in the left side. Postoperatively, the patient has been somewhat difficult in cooperating with wound care and essentially would not allow anyone to repack the wounds including Dr. Mata and the wound care team. We have decided that he will be discharged home with instructions on cleanliness and wound care and on antibiotics. We will try to see him in the office as he cooperates and comes to his appointments.
[2017-01-04] MEDS ORDERED: LEVO500T19 PO (12:14)
== END 2016-07-28 11:56 | disposition home or self-care (01) | DRG 580 ==
LOC: ENRESERVDT → ENRESERVTM → C.EDB 16:54 → EEVIPCON 18:47 → C.3E 18:47
PROVIDERS: ADMIT Surgery; ATTEND Surgery
PROC: 0HB9XZZ Excision of Perineum Skin, External Approach (ICD-10-PCS; principal; 2016-07-26 07:00)
DX: L02.31 Cutaneous abscess of buttock (principal); F20.0 Paranoid schizophrenia; L98.8 Other specified disorders of the skin and subcutaneous tissue; E87.6 Hypokalemia; R03.0 Elevated blood-pressure reading, without diagnosis of hypertension; D64.9 Anemia, unspecified; F17.210 Nicotine dependence, cigarettes, uncomplicated; Z53.29 Procedure and treatment not carried out because of patient's decision for other reasons; Z91.14 Patient's other noncompliance with medication regimen; Z91.19 Patient's noncompliance with other medical treatment and regimen; Z88.0 Allergy status to penicillin

== ENCOUNTER 2016-12-31 06:09 | Emergency (ER) | payer OTHER ==
[~2016-12-31] VITALS: Ht 182.9 cm; Wt 67.9 kg
[~2016-12-31 06:09] MED LIST: HYDR-5688 PO; LEVO1TAB33 PO; METR-163 PO
[2016-12-31 06:12] VITALS: BP 119/68; PULSE 125; TEMP 36.7; O2SAT 100; Ht 182.9 cm; Wt 67.9 kg
[2016-12-31] MEDS ORDERED: OLAN10TA11 PO (15:00)
[2016-12-31] MEDS ORDERED: ESCI10TA17 PO (15:00)
[2017-01-04] MEDS ORDERED: LEVO500T19 PO (12:14)
== END 2016-12-31 06:20 | disposition left against medical advice (07) ==
LOC: C.EDB 06:10
DX: Z53.21 Procedure and treatment not carried out due to patient leaving prior to being seen by health care provider (principal)

== ENCOUNTER 2016-12-31 14:12 | Inpatient (IN) | payer OTHER ==
[~2016-12-31] VITALS: Ht 182.9 cm; Wt 65.9 kg
[2016-12-31] MEDS ORDERED: ESCI10TA17 PO (15:00)
[2016-12-31] MEDS ORDERED: OLAN10TA11 PO (15:00)
[2016-12-31] MEDS ORDERED: SODIUM CHLORIDE 0.9% 1000ML 1,000 ML IV ONE (15:15)
--- NOTE | 2016-12-31 15:55 | EMERGENCY ROOM VISIT NOTE ---
ED Visit Note First contact with patient: 15:02 The patient was seen and examined with Jacinto Thompson PA-C. I agree with the history, physical and findings. Please see the note for disposition and details.
[2016-12-31 16:27] LABS: BASO % 0.1 %; BASO ABS # 0.01 K/uL (0-0.2); COMPLETE YES; EOS % 0.5 %; HEMATOCRIT 37.6 % (42-52); IG% 0.3 %; LYMPH % 19.2 %; LYMPH ABS # 2.41 K/uL (1.2-3.4); MEAN CELL VOLUME 97.9 fL (80-100); MEAN CORPUSCULAR HEMOGLOBIN 32.8 pg (25-34); MEAN CORPUSCULAR HGB CONC 33.5 g/dl (32-36); MEAN PLATELET VOLUME 8.8 fL (7.4-10.4); MONO % 4.4 %; NEUT % 75.5 %; PLATELET COUNT 469 K/uL (130-400); RED BLOOD COUNT 3.84 M/uL (4.7-6.1); WHITE BLOOD COUNT 12.52 K/uL (4.8-10.8)
[2016-12-31 16:45] LABS: BUN/CREATININE RATIO 4.4 (10-20); CALCIUM 8.6 mg/dl (8.5-10.1); CREATININE 0.81 mg/dl (0.60-1.40); POTASSIUM 3.9 mmol/L (3.5-5.1)
[2016-12-31] MEDS ORDERED: CEFTRIAXONE SOD INJ 1 GM ADDVIAL IV STA (16:52)
[2016-12-31] MEDS ORDERED: METRONIDAZOLE 500MG / 100ML NSS IV STA (16:52)
--- NOTE | 2016-12-31 17:35 | DIAGNOSTIC IMAGING REPORT ---
PELVIS CT HISTORY: Perirectal abscess. Rectal pain. TECHNIQUE: Multiaxial CT images of the pelvis are performed following the use of intravenous contrast. COMPARISON STUDY: Pelvis CT 07/25/2016. FINDINGS: There is again noted skin thickening and subcutaneous fat stranding/soft tissue thickening within the bilateral gluteal regions and extending into the gluteal cleft. There are few small subcutaneous fluid collections at this location which have slightly progressed. The small left subcutaneous gluteal collection appears to contain a small focus of gas and measures 8 mm. The right gluteal subcutaneous fluid collection measures approximately 2.9 x 1.2 cm. The inflammatory change extends to the posterior aspect of the anus. Therefore, there is a probable perianal fistula connection. No evidence for perirectal abscess at this time. Bilateral inguinal lymphadenopathy is again noted. This is not significantly changed. The bladder is unremarkable. IMPRESSION: 1. Slight progression of the bilateral gluteal inflammatory change which contains small subcutaneous abscesses near the gluteal cleft at described above. The inflammatory change extends to the posterior aspect of the anus. Therefore, this suggests a perianal fistula connection. However, this is difficult to clearly identified by CT. 2. No evidence for perirectal abscess at this time. 3. Persistent bilateral inguinal lymphadenopathy. Electronically signed by: Mingo Aguilar M.D. 12/31/2016 5:34 PM Dictated Date/Time: 12/31/2016 5:26 PM
[2016-12-31] MEDS ORDERED: CONSULT PHARMACY STA ×2 (19:07)
[2016-12-31] MEDS ORDERED: ACETAMINOPHEN 325 MG TAB PO PRN (19:15)
[2016-12-31] MEDS ORDERED: IBUPROFEN 200 MG TAB PO PRN (19:15)
--- NOTE | 2016-12-31 19:28 | History and Physical ---
History & Physical Date & Time of Service: Dec 31, 2016 at 19:10 Chief Complaint: Need Stitches Primary Care Physician: Gopal Beckett M.D. History of Present Illness Source: patient, clinic records, hospital records 36 year old male with history of Paranoid Schizophrenia, Smoking presenting with buttock pain starting last night. Patient was admitted to [facility] last July 2016 and underwent drainage of large gluteal cutaneous sinus tracts by Dr. Valladares. Packing was done on the right buttock per Operative Notes. Since that time, patient was not able to follow up with the Surgeon nor with his Primary Care Physician. He was apparently feeling well until a few days ago when he started to have discomfort on his buttocks. Last night, the area felt more "irritated" and was draining some abscess. No problems with bowel movement. Denies bleeding. No fever/chills, nausea, headache. Denies other symptoms. He then presented to the ER. BP stable, afebrile, no leukocytosis. CT pelvis showed: 1. Slight progression of the bilateral gluteal inflammatory change which contains small subcutaneous abscesses near the gluteal cleft at described above. The inflammatory change extends to the posterior aspect of the anus. Therefore, this suggests a perianal fistula connection. However, this is difficult to clearly identified by CT. 2. No evidence for perirectal abscess at this time. 3. Persistent bilateral inguinal lymphadenopathy. On exam, patient seen resting in bed, not in distress. Reports mild discomfort on the buttocks. Denies other symptoms. 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 Family History FH: breast cancer MOTHER Social History Smoking Status: Current Every Day Smoker Alcohol Use: none Drug Use: none Marital Status: single Housing status: lives alone Immunizations History of Influenza Vaccine: Unknown History of Tetanus Vaccine?: Yes Tetanus Immunization Date: May 10, 2005 History of Pneumococcal: No History of Hepatitis B Vaccine: Unknown Hepatitis Immunization Date: May 10, 2005 Multi-Drug Resistant Organisms History of MDRO: No Allergies Coded Allergies: Penicillins (Verified Allergy, Unknown, A CHILD, HAD MEFOXIN IN 2008 WITHOUT PROBLEM, 12/31/16) Home Medications Scheduled Escitalopram (Lexapro), 10 MG PO DAILY Olanzapine (Zyprexa), 10 MG PO DAILY Review of Systems Constitutional- no fever; no weight loss Eyes- no acute visual changes ENT- no sinus drainage; no pharyngitis Pulmonary- no cough, no wheezing, no shortness of breath Cardiac- no chest pain, no palpitations, no orthopnea, no dependent edema GI- no nausea, no vomiting, no diarrhea, no melena, no hematochezia - no dysuria, no hematuria Musculoskeletal- no arthralgias, no myalgias Derm- no rashes, no new skin lesions, no changing skin lesions Hematologic- no unusual bruising, no unusual bleeding Lymphatics- no adenopathy Endocrine- no polyuria or polydipsia; no heat or cold intolerance Neuro- no headaches, no focal neurologic symptoms Psych- no anxiety, no depression Physical Exam Vital Signs Date Time Temp Pulse Resp B/P (MAP) Pulse Ox O2 Delivery O2 Flow Rate FiO2 12/31/16 18:09 79 20 107/58 98 Room Air 12/31/16 16:10 84 18 119/61 97 12/31/16 14:20 37.0 84 18 122/80 95 Room Air General Appearance: no apparent distress, + pertinent finding (poor hygiene, unkempt) Head: normocephalic, atraumatic Eyes: normal inspection, EOMI, sclerae normal ENT: normal ENT inspection, hearing grossly normal, pharynx normal Neck: supple, no adenopathy, thyroid normal, no JVD, trachea midline Respiratory/Chest: chest non-tender, lungs clear, normal breath sounds, no respiratory distress, no accessory muscle use Cardiovascular: regular rate, rhythm, no edema, no JVD, no murmur Abdomen/GI: normal bowel sounds, non tender, soft, no organomegaly Back: normal inspection, no CVA tenderness Extremities/Musculoskelatal: normal inspection, no calf tenderness, no pedal edema Neurologic/Psych: ice cream scooper II-XII nml as tested, no motor/sensory deficits, alert, oriented x 3, + pertinent finding (somewhat flat affect) Skin: normal color, warm/dry, no rash Lymphatic: no adenopathy RIGHT BUTTOCK: indurated areas, exquisitely tender, medial aspect, with small opening, scant foul smelling discharge LEFT BUTTOCK: indurated ángel, exquisitely tender, medial aspect, string like material embedded was visible, scant discharge Diagnostics Laboratory Results Results Past 24 Hours Test 12/31/16 15:35 12/31/16 16:13 Range/Units White Blood Count 12.52 4.8-10.8 K/uL Red Blood Count 3.84 4.7-6.1 M/uL Hemoglobin 12.6 14.0-18.0 g/dL Hematocrit 37.6 42-52 % Mean Corpuscular Volume 97.9 80-100 fL Mean Corpuscular Hemoglobin 32.8 25-34 pg Mean Corpuscular Hemoglobin Concent 33.5 32-36 g/dl Platelet Count 469 130-400 K/uL Mean Platelet Volume 8.8 7.4-10.4 fL Neutrophils (%) (Auto) 75.5 % Lymphocytes (%) (Auto) 19.2 % Monocytes (%) (Auto) 4.4 % Eosinophils (%) (Auto) 0.5 % Basophils (%) (Auto) 0.1 % Neutrophils # (Auto) 9.45 1.4-6.5 K/uL Lymphocytes # (Auto) 2.41 1.2-3.4 K/uL Monocytes # (Auto) 0.55 0.11-0.59 K/uL Eosinophils # (Auto) 0.06 0-0.5 K/uL Basophils # (Auto) 0.01 0-0.2 K/uL RDW Standard Deviation 51.7 36.4-46.3 fL RDW Coefficient of Variation 14.4 11.5-14.5 % Immature Granulocyte % (Auto) 0.3 % Immature Granulocyte # (Auto) 0.04 0.00-0.02 K/uL Sodium Level 137 136-145 mmol/L Potassium Level 3.9 3.5-5.1 mmol/L Chloride Level 103 98-107 mmol/L Carbon Dioxide Level 31 21-32 mmol/L Anion Gap 3.0 3-11 mmol/L Blood Urea Nitrogen 4 7-18 mg/dl Creatinine 0.81 0.60-1.40 mg/dl Est Creatinine Clear Calc Drug Dose 116.4 ml/min Estimated GFR () 131.6 Estimated GFR (Non- 113.5 BUN/Creatinine Ratio 4.4 10-20 Random Glucose 77 70-99 mg/dl Calcium Level 8.6 8.5-10.1 mg/dl Lactic Acid Level 1.1 0.4-2.0 mmol/L Microbiology Results 12/31/16 Blood Culture, Received Pending 12/31/16 Blood Culture, Received Pending 12/31/16 Gram Stain, Received Pending 12/31/16 Wound Culture, Received Pending Diagnostic Radiology PELVIS CT HISTORY: Perirectal abscess. Rectal pain. TECHNIQUE: Multiaxial CT images of the pelvis are performed following the use of intravenous contrast. COMPARISON STUDY: Pelvis CT 07/25/2016. FINDINGS: There is again noted skin thickening and subcutaneous fat stranding/soft tissue thickening within the bilateral gluteal regions and extending into the gluteal cleft. There are few small subcutaneous fluid collections at this location which have slightly progressed. The small left subcutaneous gluteal collection appears to contain a small focus of gas and measures 8 mm. The right gluteal subcutaneous fluid collection measures approximately 2.9 x 1.2 cm. The inflammatory change extends to the posterior aspect of the anus. Therefore, there is a probable perianal fistula connection. No evidence for perirectal abscess at this time. Bilateral inguinal lymphadenopathy is again noted. This is not significantly changed. The bladder is unremarkable. IMPRESSION: 1. Slight progression of the bilateral gluteal inflammatory change which contains small subcutaneous abscesses near the gluteal cleft at described above. The inflammatory change extends to the posterior aspect of the anus. Therefore, this suggests a perianal fistula connection. However, this is difficult to clearly identified by CT. 2. No evidence for perirectal abscess at this time. 3. Persistent bilateral inguinal lymphadenopathy. Impression Assessment and Plan 36 year old male with history of Paranoid Schizophrenia, Smoking presenting with buttock pain starting last night. GLUTEAL CELLULITIS, POSSIBLE ABSCESS POSSIBLE RETAINED PACKING, HISTORY OF I&D OF CUTANEOUS SINUS TRACTS 07/2016 - not septic - ff up wound and blood cultures - will order empiric Vanco, Aztreonam will add Clindamycin due to mention of possible subcutaneous gas - Gen Surg and ID consulted - IV fluids, PRN Toradol, Ibuprofen PARANOID SCHIZOPHRENIA - oriented, cooperative - on Lexapro, Zyprexa DVT prophylaxis - SCDs for now FULL CODE PER PATIENT Dispo anticipate d/c home when medically stable VTE Prophylaxis VTE Risk Assessment Done? Y/N: Yes Risk Level: Moderate Given or contraindicated: SCD's
[2016-12-31 20:04] VITALS: O2SAT 97
[2016-12-31] MEDS ORDERED: CLINDAMYCIN CONSULT ACTIVE PRN ×2 (20:15)
[2016-12-31 20:20] VITALS: BP 154/94; PULSE 99; TEMP 36.6; O2SAT 97
[2016-12-31 20:44] VITALS: BP 154/94; PULSE 99; TEMP 36.6; Ht 182.9 cm; Wt 65.9 kg
[2016-12-31] MEDS: SODIUM CHLORIDE 0.9% 1000ML 1,000 ML IV SCH (21:10)
[2016-12-31] MEDS: DAPTOmycin IV 400 MG in SODIUM CHLORIDE 0.9% 50ML 50 ML IV SCH (22:05)
[2016-12-31] MEDS: CLINDAMYCIN IV 900 MG in DEXTROSE 5% 100ML 100 ML IV SCH (22:05)
[2016-12-31 22:45] VITALS: BP 108/68; PULSE 80; TEMP 36.8; O2SAT 99
[2016-12-31] MEDS: AZTREONAM IV 2,000 MG in DEXTROSE 5% 100ML 100 ML IV SCH (23:52)
[2017-01-01] MEDS: KETOROLAC TROMETHAMINE 15 MG/ML VIAL IV PRN (00:05)
--- NOTE | 2017-01-01 00:07 | EMERGENCY ROOM VISIT NOTE ---
ED Visit Note First contact with patient: 15:02 Chief Complaint: I need to have my stitches taken out. History of Present Illness: Mr. Schroeder is a 38-year-old black male who ambulates into the ED requesting suture removal. Historically, by patient and medical records, patient had an I&D procedure performed for a large gluteal cutaneous sinus tract with perirectal abscess in July 2016. The procedure was performed by Dr. Valladares. Patient reports he has never followed up with Dr. Valladares since his surgery and was not able to be seen by his primary care provider. Patient reports over the last 2 days he has started feeling pain in the left gluteal area. Initially it was mild and has gradually increased in intensity. Last night he felt the area and felt that it was swollen and he noted a hard piece of material in the area and felt this was sutures from his previous surgery. Currently he describes his discomfort as a pressure sensation. He rates his discomfort 6/10. The pain is nonradiating. The pain worsens with palpation and sitting on his buttocks. He has not identified any alleviating factors related to the pain. He has not taken any medications for pain prior to arrival at the hospital. Associated with his symptoms he reports he has noted some "moisture" in the area of his pain and swelling. He denies fevers, chills, sweats, skin eruptions, skin color changes, abdominal pain, decreased appetite, nausea/vomiting, diarrhea, constipation, rectal bleeding, black/tarry stools, urinary symptoms. Review of Systems: As noted above in history of present illness. All body systems were reviewed and found to be negative as noted above. Past Medical History: As previously noted, depression, paranoid schizophrenia. Current Medications: Lexapro, Zyprexa. Allergies to Medications: Penicillin. Social History: Patient is not employed; he feels safe in his home environment; he admits to tobacco use and denies alcoholism or drug use. Physical Examination: Vital Signs: Date Time Temp Pulse Resp B/P (MAP) Pulse Ox O2 Delivery O2 Flow Rate FiO2 12/31/16 18:09 79 20 107/58 98 Room Air 12/31/16 16:10 84 18 119/61 97 12/31/16 14:20 37.0 84 18 122/80 95 Room Air GENERAL: 36-year-old male in mild distress due to pain, nontoxic-appearing, afebrile and hemodynamically stable. NEUROLOGICAL: Awake, alert and oriented to person, place and time. Answering questions appropriately and following commands. Normal gait. Good hand eye coordination. No focal motor or sensory deficits. Radial nerves II through XII grossly intact. Patient's affect is flat. Mood is stable. He denies hallucinations. No flight of ideas. Not responding to internal stimuli. SKIN: Warm, dry and pink. HEENT: Atraumatic and normocephalic. PERRLA. Sclera white and conjunctiva pink. No drainage from naris. Oral cavity moist and pink. Pharynx is nonerythematous or edematous. Speech normal. No lymphadenopathy. BACK: No tenderness over the bony spine. No CVA tenderness. THORAX: Lungs sounds are clear to auscultation and equal bilaterally with symmetrical chest wall. No wheezing, rales or rhonchi. HEART: Regular rate and rhythm. No gallops, rubs or murmurs are appreciated. ABDOMEN: Flat, soft and nontender. Positive bowel sounds in all quadrants. No guarding, rigidity or organomegaly. No local lymphadenopathy. BUTTOCKS: Patient has induration, erythema and edema over the bilateral gluteal clefts. This area is exquisitely tender to palpation. Over the right buttocks there is a small opening which is draining purulent material that is foul- smelling. The right buttocks area there is a piece of hard packing material from his previous surgery and from the area where it is extending out of his skin there is a small amount of purulent material. EXTREMITIES: Moves all extremities well on command and with purpose. All distal neurovascular statuses are intact and equal bilaterally. ED Course: Patient is assessed as noted above. Patient's medication list was reviewed. Laboratory Testing: Test 12/31/16 15:35 12/31/16 16:13 Range/Units White Blood Count 12.52 4.8-10.8 K/uL Red Blood Count 3.84 4.7-6.1 M/uL Hemoglobin 12.6 14.0-18.0 g/dL Hematocrit 37.6 42-52 % Mean Corpuscular Volume 97.9 80-100 fL Mean Corpuscular Hemoglobin 32.8 25-34 pg Mean Corpuscular Hemoglobin Concent 33.5 32-36 g/dl Platelet Count 469 130-400 K/uL Mean Platelet Volume 8.8 7.4-10.4 fL Neutrophils (%) (Auto) 75.5 % Lymphocytes (%) (Auto) 19.2 % Monocytes (%) (Auto) 4.4 % Eosinophils (%) (Auto) 0.5 % Basophils (%) (Auto) 0.1 % Neutrophils # (Auto) 9.45 1.4-6.5 K/uL Lymphocytes # (Auto) 2.41 1.2-3.4 K/uL Monocytes # (Auto) 0.55 0.11-0.59 K/uL Eosinophils # (Auto) 0.06 0-0.5 K/uL Basophils # (Auto) 0.01 0-0.2 K/uL RDW Standard Deviation 51.7 36.4-46.3 fL RDW Coefficient of Variation 14.4 11.5-14.5 % Immature Granulocyte % (Auto) 0.3 % Immature Granulocyte # (Auto) 0.04 0.00-0.02 K/uL Sodium Level 137 136-145 mmol/L Potassium Level 3.9 3.5-5.1 mmol/L Chloride Level 103 98-107 mmol/L Carbon Dioxide Level 31 21-32 mmol/L Anion Gap 3.0 3-11 mmol/L Blood Urea Nitrogen 4 7-18 mg/dl Creatinine 0.81 0.60-1.40 mg/dl Est Creatinine Clear Calc Drug Dose 116.4 ml/min Estimated GFR () 131.6 Estimated GFR (Non- 113.5 BUN/Creatinine Ratio 4.4 10-20 Random Glucose 77 70-99 mg/dl Calcium Level 8.6 8.5-10.1 mg/dl Lactic Acid Level 1.1 0.4-2.0 mmol/L Blood Culture: Pending. Gram Stain and Wound Culture: Pending. IV Contrast Pelvic CT: Was reviewed by myself and read by the radiologist showing slight progression of bilateral gluteal inflammatory changes with small subcutaneous abscesses near the bilateral gluteal clefts. On the left there is a small focus of gas in one of the abscesses. Inflammatory changes extend to the posterior aspect of the anus where there is a probable perianal fistula but no evidence of perirectal abscess. Bilateral inguinal lymphadenopathy was noted that was unchanged from previous CT. Patient was hydrated with normal saline and refused pain medications. Patient's case was reviewed with my attending, Dr. Rodriguez; in apparently assessed the patient we agreed on diagnostic approach, treatment, disposition and plan. I review the case with the ED pharmacist and it was recommended that patient be started on ceftriaxone and Flagyl for antibiotic coverage. Patient's case was consulted with case management, Dr. Galarza, general surgery , and Dr. Jones, [facility] hospitalist; Dr. Galarza felt patient should be brought into the hospital under medicine because no emergent surgery was required. Patient was educated about today's findings and instructed on his treatment plan. Clinical Impression: Gluteal abscess. Gluteal cellulitis. Decision-Making: Initially my differential diagnosis I considered pilonidal abscess, gluteal cellulitis, perirectal abscess and other causes. Disposition and Plan: Patient be brought in the hospital for observation/ admission by the [facility] hospitalist; please see their notes and orders for final disposition and plan.
[2017-01-01] MEDS: SODIUM CHLORIDE 0.9% 1000ML 1,000 ML IV SCH ×3 (04:53→22:19)
[2017-01-01] MEDS: CLINDAMYCIN IV 900 MG in DEXTROSE 5% 100ML 100 ML IV SCH ×3 (05:35→23:27)
[2017-01-01 06:19] LABS: URINE APPEARANCE CLEAR (CLEAR); URINE BILIRUBIN NEG (NEG); URINE COLOR YELLOW; URINE NITRITE NEG (NEG); URINE PH 6.5 (4.5-7.5); URINE SPECIFIC GRAVITY > 1.045 (1.000-1.030); UROBILINOGEN NEG (NEG)
[2017-01-01 06:27] LABS: MANUAL MICROSCOPIC REQUIRED? NO; REVIEW REQ? NO
[2017-01-01 07:42] LABS: BASO % 0.1 %; BASO ABS # 0.01 K/uL (0-0.2); COMPLETE YES; EOS % 1.1 %; HEMATOCRIT 32.3 % (42-52); IG% 0.3 %; LYMPH % 40.3 %; LYMPH ABS # 3.04 K/uL (1.2-3.4); MEAN CELL VOLUME 97.9 fL (80-100); MEAN CORPUSCULAR HEMOGLOBIN 31.8 pg (25-34); MEAN CORPUSCULAR HGB CONC 32.5 g/dl (32-36); MEAN PLATELET VOLUME 8.4 fL (7.4-10.4); MONO % 6.8 %; NEUT % 51.4 %; PLATELET COUNT 385 K/uL (130-400); WHITE BLOOD COUNT 7.55 K/uL (4.8-10.8)
[2017-01-01 07:53] VITALS: BP 94/58; PULSE 73; TEMP 36.8; O2SAT 96
[2017-01-01] MEDS: AZTREONAM IV 2,000 MG in DEXTROSE 5% 100ML 100 ML IV SCH ×2 (08:11→16:13)
[2017-01-01 08:25] LABS: BUN/CREATININE RATIO 13.4 (10-20); CALCIUM 8.3 mg/dl (8.5-10.1); CREATININE 0.68 mg/dl (0.60-1.40); POTASSIUM 4.3 mmol/L (3.5-5.1)
--- NOTE | 2017-01-01 09:13 | Pre-Operative Consultation ---
History General Date of Service: Jan 01, 2017. HPI HPI: The patient is a 36 year old male being seen for retained seton and a complex perianal fistula. He has an I&D of a left perianal abscess and a seton was placed in a right sinus tract/fistula. The procedure was performed by Dr. Valladares. Patient reports he has never followed up with Dr. Valladares since his surgery and was not able to be seen by his primary care provider. Patient reports over the last 2 days he has started feeling pain in the left gluteal area along with drainage. His pain is better. He describes his discomfort as a pressure sensation. The pain worsens with palpation and sitting on his buttocks. Historian: patient Procedure Urgency: Acute Risk Assessment Daily beta basil use?: No Problem List Medical Problems: (1) Anemia Status: Acute (2) Elevated platelet count Status: Acute (3) Hypokalemia Status: Acute (4) Noncompliance with medication regimen Status: Acute (5) Perianal abscess Status: Acute (6) Perianal abscess Status: Acute (7) Schizophrenia Status: Acute Medical & Surgical History Past Medical History: depression, other (paranoid schizophrenia) Past Surgical History: other (I&D and seton placement) Family History Family History: diabetes, hypertension, renal disease Social History Hx Tobacco Use In Past Year?: Yes (CIGARETTES PACK/DAY) Smoking Status: Current Every Day Smoker Alcohol: occasionally Drug Use: none Marital status: single Housing status: lives alone Immunizations Have You Had Influenza Vaccine: Unknown Have You Had Tetanus Vaccine: Yes Date Of Tetanus Immunization: May 10, 2005 History of Pneumococcal: No History Hepatitis B Vaccine: Unknown Date Of Hepatitis Immunization: May 10, 2005 Allergies Allergies: Coded Allergies: Penicillins (Verified Allergy, Unknown, A CHILD, HAD MEFOXIN IN 2008 WITHOUT PROBLEM, 12/31/16) Medications Current Inpatient Medications Current Inpatient Medications Medications (Trade) Dose Ordered Sig/Danette Route Start Time Stop Time Status Last Admin Dose Admin Aztreonam 2000 mg/ Dextrose 110 ml @ 100 mls/hr Q8H IV 01/01/17 00:00 02/12/17 00:00 01/01/17 08:11 100 MLS/HR Daptomycin 400 mg/ Sodium Chloride 58 ml @ 100 mls/hr Q24H IV 12/31/16 21:30 02/11/17 21:29 12/31/16 22:05 100 MLS/HR Sodium Chloride 1,000 ml @ 125 mls/hr Q8H IV 12/31/16 21:15 01/30/17 21:14 01/01/17 04:53 125 MLS/HR Ibuprofen (Advil Tab) 400 mg QID PRN PO 12/31/16 19:15 01/30/17 19:14 Ketorolac Tromethamine (Toradol Inj) 15 mg Q6H PRN IV 12/31/16 19:15 01/05/17 19:14 01/01/17 00:05 15 MG Acetaminophen (Tylenol Tab) 650 mg Q4H PRN PO 12/31/16 19:15 01/30/17 19:14 Escitalopram Oxalate (Lexapro Tab) 10 mg DAILY PO 01/01/17 09:00 01/31/17 08:59 Olanzapine (Zyprexa Tab) 10 mg DAILY PO 01/01/17 09:00 01/31/17 08:59 Clindamycin Phosphate (Consult) 1 ea UD PRN N/A 12/31/16 20:15 01/30/17 20:14 Clindamycin Phosphate 900 mg/ Dextrose 106 ml @ 106 mls/hr Q8 IV 12/31/16 22:00 01/02/17 21:59 01/01/17 05:35 106 MLS/HR Review of Systems Review of Systems Constitutional: denies chills, denies diaphoresis, denies fever Eyes: reports: no symptoms ENT: reports: no symptoms reported Cardiovascular: denies: chest pain, chest pressure, palpitations Respiratory: denies: cough, orthopnea, short of breath, stridor, cyanosis Gastrointestinal: denies abdominal pain, denies constipation, denies diarrhea, denies nausea, denies vomiting Genitourinary - Male: reports: no symptoms Musculoskeletal: denies joint pain, denies joint swelling, denies muscle stiffness, denies neck pain Integumentary: denies change in hair/nails, denies dryness, denies lumps, denies rash Neurologic: reports: no symptoms Psychiatric: reports: depression, denies: suicidal ideation, homicidal ideation , visual hallucinations Endocrine: no symptoms Hematologic / Lymphatic: no symptoms Allergic / Immunologic: no symptoms Physical Exam Physical Exam General Appearance: + WD/WN, + other (anxious), No distress Ears, Nose, Throat: + normal ENT inspection Neck: No abnormal inspection, No tracheal deviation, No lymphadenophy, No stiffness, No tenderness Respiratory: No chest tenderness, No accessory muscle use, No decreased breath sounds, No rhonchi, No stridor, No wheezing Cardiovascular: No tachycardia, No gallop/S3, No diastolic murmur, No gallop/S4 , No bradycardia, No systolic murmur Abdomen: No abnormal bowel sounds, No tenderness, No distension, No organomegaly, No guarding Extremities: No abnormal range of motion, No deformity, No swelling, No calf tenderness, No inflammation Neurologic/Psychiatric: No motor deficit/weakness, No disorientation, No sensory deficit Skin Characteristics: + other (inflammation around right seton; draining purulent material), No abnormal color, No diaphoresis, No pallor Lymphatic: + abnormal adenopathy Diagnostics Labs Labs Results Past 24 Hours Test 12/31/16 15:35 12/31/16 16:13 01/01/17 06:00 01/01/17 07:17 Range/Units White Blood Count 12.52 7.55 4.8-10.8 K/uL Red Blood Count 3.84 3.30 4.7-6.1 M/uL Hemoglobin 12.6 10.5 14.0-18.0 g/dL Hematocrit 37.6 32.3 42-52 % Mean Corpuscular Volume 97.9 97.9 80-100 fL Mean Corpuscular Hemoglobin 32.8 31.8 25-34 pg Mean Corpuscular Hemoglobin Concent 33.5 32.5 32-36 g/dl Platelet Count 469 385 130-400 K/uL Mean Platelet Volume 8.8 8.4 7.4-10.4 fL Neutrophils (%) (Auto) 75.5 51.4 % Lymphocytes (%) (Auto) 19.2 40.3 % Monocytes (%) (Auto) 4.4 6.8 % Eosinophils (%) (Auto) 0.5 1.1 % Basophils (%) (Auto) 0.1 0.1 % Neutrophils # (Auto) 9.45 3.89 1.4-6.5 K/uL Lymphocytes # (Auto) 2.41 3.04 1.2-3.4 K/uL Monocytes # (Auto) 0.55 0.51 0.11-0.59 K/uL Eosinophils # (Auto) 0.06 0.08 0-0.5 K/uL Basophils # (Auto) 0.01 0.01 0-0.2 K/uL RDW Standard Deviation 51.7 52.8 36.4-46.3 fL RDW Coefficient of Variation 14.4 14.6 11.5-14.5 % Immature Granulocyte % (Auto) 0.3 0.3 % Immature Granulocyte # (Auto) 0.04 0.02 0.00-0.02 K/uL Sodium Level 137 143 136-145 mmol/L Potassium Level 3.9 4.3 3.5-5.1 mmol/L Chloride Level 103 111 98-107 mmol/L Carbon Dioxide Level 31 27 21-32 mmol/L Anion Gap 3.0 5.0 3-11 mmol/L Blood Urea Nitrogen 4 9 7-18 mg/dl Creatinine 0.81 0.68 0.60-1.40 mg/dl Est Creatinine Clear Calc Drug Dose 116.4 138.6 ml/min Estimated GFR () 131.6 141.4 Estimated GFR (Non- 113.5 122.0 BUN/Creatinine Ratio 4.4 13.4 10-20 Random Glucose 77 86 70-99 mg/dl Calcium Level 8.6 8.3 8.5-10.1 mg/dl Lactic Acid Level 1.1 0.4-2.0 mmol/L Urine Color YELLOW Urine Appearance CLEAR CLEAR Urine pH 6.5 4.5-7.5 Urine Specific [place] > 1.045 1.000-1.030 Urine Protein NEG NEG Urine Glucose (UA) NEG NEG Urine Ketones NEG NEG Urine Occult Blood NEG NEG Urine Nitrite NEG NEG Urine Bilirubin NEG NEG Urine Urobilinogen NEG NEG Urine Leukocyte Esterase NEG NEG Microbiology Results 12/31/16 Blood Culture, Received Pending 12/31/16 Blood Culture, Received Pending Diagnostic Radiology Diagnostic Radiology PELVIS CT HISTORY: Perirectal abscess. Rectal pain. TECHNIQUE: Multiaxial CT images of the pelvis are performed following the use of intravenous contrast. COMPARISON STUDY: Pelvis CT 07/25/2016. FINDINGS: There is again noted skin thickening and subcutaneous fat stranding/soft tissue thickening within the bilateral gluteal regions and extending into the gluteal cleft. There are few small subcutaneous fluid collections at this location which have slightly progressed. The small left subcutaneous gluteal collection appears to contain a small focus of gas and measures 8 mm. The right gluteal subcutaneous fluid collection measures approximately 2.9 x 1.2 cm. The inflammatory change extends to the posterior aspect of the anus. Therefore, there is a probable perianal fistula connection. No evidence for perirectal abscess at this time. Bilateral inguinal lymphadenopathy is again noted. This is not significantly changed. The bladder is unremarkable. IMPRESSION: 1. Slight progression of the bilateral gluteal inflammatory change which contains small subcutaneous abscesses near the gluteal cleft at described above. The inflammatory change extends to the posterior aspect of the anus. Therefore, this suggests a perianal fistula connection. However, this is difficult to clearly identified by CT. 2. No evidence for perirectal abscess at this time. 3. Persistent bilateral inguinal lymphadenopathy. 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
[2017-01-01] MEDS: ESCITALOPRAM OXALATE 10 MG TAB PO SCH (10:13)
[2017-01-01] MEDS: OLANZAPINE 10 MG TAB PO SCH (10:13)
[2017-01-01 14:55] VITALS: BP 97/60; PULSE 56; TEMP 36.8; O2SAT 98
[2017-01-01] MEDS ORDERED: SODIUM CHLORIDE 0.9% 500ML 500 ML IV SCH (16:00)
--- NOTE | 2017-01-01 16:47 | Progress Note ---
Medicine Progress Note Date & Time of Visit: Jan 01, 2017 at 16:43. Subjective patient seen resting in bed, comfortable, sleeping states buttock pain is improving still very tender no problems with BM denies dizziness, chest pain, dyspnea no other symptoms Objective Last 8 Hrs Date Time Temp Pulse Resp B/P (MAP) Pulse Ox O2 Delivery O2 Flow Rate FiO2 01/01/17 14:55 36.8 56 15 97/60 (72) 98 Room Air Physical Exam: General-oriented x 3 ,not in distress, speaks in sentences Eyes- EOMI, anicteric ENT- oropharynx clear Neck- supple, no JVD Lungs- clear to auscultation b/l Heart- regular rhythm; no murmur, normal rate Abdomen- normal bowel sounds, soft, nontender Extremities- no pretibial edema, no calf tenderness; peripheral pulses intact Neuro- alert, oriented x 3; no gross focal deficits Skin- warm & dry RIGHT BUTTOCK: indurated areas- less edema, exquisitely tender, medial aspect, with small opening, scant yellow discharge LEFT BUTTOCK: indurated ángel- less edema, exquisitely tender, medial aspect, string like material embedded was visible, scant discharge Laboratory Results: Last 24 Hours Test 01/01/17 06:00 01/01/17 07:17 Urine Color YELLOW Urine Appearance CLEAR Urine pH 6.5 Urine Specific [place] > 1.045 Urine Protein NEG Urine Glucose (UA) NEG Urine Ketones NEG Urine Occult Blood NEG Urine Nitrite NEG Urine Bilirubin NEG Urine Urobilinogen NEG Urine Leukocyte Esterase NEG White Blood Count 7.55 K/uL Red Blood Count 3.30 M/uL Hemoglobin 10.5 g/dL Hematocrit 32.3 % Mean Corpuscular Volume 97.9 fL Mean Corpuscular Hemoglobin 31.8 pg Mean Corpuscular Hemoglobin Concent 32.5 g/dl Platelet Count 385 K/uL Mean Platelet Volume 8.4 fL Neutrophils (%) (Auto) 51.4 % Lymphocytes (%) (Auto) 40.3 % Monocytes (%) (Auto) 6.8 % Eosinophils (%) (Auto) 1.1 % Basophils (%) (Auto) 0.1 % Neutrophils # (Auto) 3.89 K/uL Lymphocytes # (Auto) 3.04 K/uL Monocytes # (Auto) 0.51 K/uL Eosinophils # (Auto) 0.08 K/uL Basophils # (Auto) 0.01 K/uL RDW Standard Deviation 52.8 fL RDW Coefficient of Variation 14.6 % Immature Granulocyte % (Auto) 0.3 % Immature Granulocyte # (Auto) 0.02 K/uL Sodium Level 143 mmol/L Potassium Level 4.3 mmol/L Chloride Level 111 mmol/L Carbon Dioxide Level 27 mmol/L Anion Gap 5.0 mmol/L Blood Urea Nitrogen 9 mg/dl Creatinine 0.68 mg/dl Est Creatinine Clear Calc Drug Dose 138.6 ml/min Estimated GFR () 141.4 Estimated GFR (Non- 122.0 BUN/Creatinine Ratio 13.4 Random Glucose 86 mg/dl Calcium Level 8.3 mg/dl Assessment & Plan Skin: normal color, warm/dry, no rash Lymphatic: no adenopathy RIGHT BUTTOCK: indurated areas, exquisitely tender, medial aspect, with small opening, scant foul smelling discharge LEFT BUTTOCK: indurated ángel, exquisitely tender, medial aspect, string like material embedded was visible, scant discharge Diagnostics - H&P Diagnostics Laboratory Results 36 year old male with history of Paranoid Schizophrenia, Smoking presenting with buttock pain starting last night. GLUTEAL CELLULITIS, POSSIBLE ABSCESS POSSIBLE RETAINED PACKING, HISTORY OF I&D OF CUTANEOUS SINUS TRACTS 07/2016 - not septic remains afebrile, WBC improved - ff up wound and blood cultures - Day 2 Vanco, Aztreonam Day 2 Clindamycin due to mention of possible subcutaneous gas on CT - Gen Surg and ID consulted patient declines surgical intervention , removal of seton packing appreciate Dr. Jean's recommendations awaiting ID SVC recommendations - IV fluids, PRN Toradol, Ibuprofen BORDERLINE BP - IV fluids bolus ordered continue IV fluids PARANOID SCHIZOPHRENIA - oriented, cooperative - on Lexapro, Zyprexa DVT prophylaxis - Heparin FULL CODE PER PATIENT Dispo anticipate d/c home when medically stable VTE Prophylaxis VTE Risk Assessment Done? Y/N: Yes Risk Level: Moderate Given or contraindicated: SCD's, Heparin Current Inpatient Medications: Current Inpatient Medications Medications (Trade) Dose Ordered Sig/Danette Route Start Time Stop Time Status Last Admin Dose Admin Aztreonam 2000 mg/ Dextrose 110 ml @ 100 mls/hr Q8H IV 01/01/17 00:00 02/12/17 00:00 01/01/17 08:11 100 MLS/HR Daptomycin 400 mg/ Sodium Chloride 58 ml @ 100 mls/hr Q24H IV 12/31/16 21:30 02/11/17 21:29 12/31/16 22:05 100 MLS/HR Sodium Chloride 1,000 ml @ 125 mls/hr Q8H IV 12/31/16 21:15 01/30/17 21:14 01/01/17 14:08 125 MLS/HR Ibuprofen (Advil Tab) 400 mg QID PRN PO 12/31/16 19:15 01/30/17 19:14 Ketorolac Tromethamine (Toradol Inj) 15 mg Q6H PRN IV 12/31/16 19:15 01/05/17 19:14 01/01/17 00:05 15 MG Acetaminophen (Tylenol Tab) 650 mg Q4H PRN PO 12/31/16 19:15 01/30/17 19:14 Escitalopram Oxalate (Lexapro Tab) 10 mg DAILY PO 01/01/17 09:00 01/31/17 08:59 01/01/17 10:13 10 MG Olanzapine (Zyprexa Tab) 10 mg DAILY PO 01/01/17 09:00 01/31/17 08:59 01/01/17 10:13 10 MG Clindamycin Phosphate 900 mg/ Dextrose 106 ml @ 106 mls/hr Q8 IV 12/31/16 22:00 01/02/17 21:59 01/01/17 14:08 106 MLS/HR
[2017-01-01] MEDS: DAPTOmycin IV 400 MG in SODIUM CHLORIDE 0.9% 50ML 50 ML IV SCH (22:19)
[2017-01-01 23:10] VITALS: BP 125/72; PULSE 60; TEMP 37; O2SAT 98
[2017-01-02] MEDS: AZTREONAM IV 2,000 MG in DEXTROSE 5% 100ML 100 ML IV SCH ×4 (01:09→23:37)
[2017-01-02] MEDS: KETOROLAC TROMETHAMINE 15 MG/ML VIAL IV PRN (01:24)
[2017-01-02] MEDS: CLINDAMYCIN IV 900 MG in DEXTROSE 5% 100ML 100 ML IV SCH ×2 (05:36→13:58)
[2017-01-02] MEDS: SODIUM CHLORIDE 0.9% 1000ML 1,000 ML IV SCH ×3 (05:36→21:27)
[2017-01-02 06:41] LABS: BASO % 0.2 %; BASO ABS # 0.01 K/uL (0-0.2); COMPLETE YES; EOS % 1.6 %; HEMATOCRIT 30.3 % (42-52); IG% 0.2 %; LYMPH % 42.5 %; LYMPH ABS # 2.42 K/uL (1.2-3.4); MEAN CELL VOLUME 98.4 fL (80-100); MEAN CORPUSCULAR HEMOGLOBIN 31.2 pg (25-34); MEAN CORPUSCULAR HGB CONC 31.7 g/dl (32-36); MEAN PLATELET VOLUME 8.3 fL (7.4-10.4); MONO % 8.1 %; NEUT % 47.4 %; PLATELET COUNT 393 K/uL (130-400); RED BLOOD COUNT 3.08 M/uL (4.7-6.1)
[2017-01-02 06:56] VITALS: BP 103/68; PULSE 54; TEMP 37; O2SAT 97
[2017-01-02 07:17] LABS: BUN/CREATININE RATIO 10.7 (10-20); CALCIUM 7.7 mg/dl (8.5-10.1); CREATININE 0.65 mg/dl (0.60-1.40); POTASSIUM 4.2 mmol/L (3.5-5.1)
--- NOTE | 2017-01-02 07:34 | Surgery Progress Note ---
Surgery Progress Note Date of Service Jan 02, 2017. Subjective Post OP Day: HD 2 + feeling well, + complaints (pain better; seton removed), + flatus, No nausea, No vomiting Objective Vital Signs: Date Time Temp Pulse Resp B/P (MAP) Pulse Ox O2 Delivery O2 Flow Rate FiO2 01/02/17 06:56 37.0 54 17 103/68 (80) 97 Room Air 01/02/17 01:10 Room Air 01/01/17 23:10 37.0 60 16 125/72 (89) 98 Room Air 01/01/17 15:30 Room Air 01/01/17 14:55 36.8 56 15 97/60 (72) 98 Room Air 01/01/17 08:18 Room Air 01/01/17 07:53 36.8 73 19 94/58 (70) 96 Room Air General Appearance: WD/WN, no apparent distress Head: normocephalic, atraumatic Neck: supple, trachea midline Respiratory/Chest: lungs clear Cardiovascular: regular rate, rhythm Abdomen: normal bowel sounds, non tender, non distended, soft Incision(s): findings (still with some erythema without area of fluctuance) Extremities: non-tender, no pedal edema Laboratory Results: Results Past 24 Hours Test 01/02/17 06:08 Range/Units White Blood Count 5.70 4.8-10.8 K/uL Red Blood Count 3.08 4.7-6.1 M/uL Hemoglobin 9.6 14.0-18.0 g/dL Hematocrit 30.3 42-52 % Mean Corpuscular Volume 98.4 80-100 fL Mean Corpuscular Hemoglobin 31.2 25-34 pg Mean Corpuscular Hemoglobin Concent 31.7 32-36 g/dl Platelet Count 393 130-400 K/uL Mean Platelet Volume 8.3 7.4-10.4 fL Neutrophils (%) (Auto) 47.4 % Lymphocytes (%) (Auto) 42.5 % Monocytes (%) (Auto) 8.1 % Eosinophils (%) (Auto) 1.6 % Basophils (%) (Auto) 0.2 % Neutrophils # (Auto) 2.71 1.4-6.5 K/uL Lymphocytes # (Auto) 2.42 1.2-3.4 K/uL Monocytes # (Auto) 0.46 0.11-0.59 K/uL Eosinophils # (Auto) 0.09 0-0.5 K/uL Basophils # (Auto) 0.01 0-0.2 K/uL RDW Standard Deviation 52.8 36.4-46.3 fL RDW Coefficient of Variation 14.6 11.5-14.5 % Immature Granulocyte % (Auto) 0.2 % Immature Granulocyte # (Auto) 0.01 0.00-0.02 K/uL Sodium Level 142 136-145 mmol/L Potassium Level 4.2 3.5-5.1 mmol/L Chloride Level 112 98-107 mmol/L Carbon Dioxide Level 26 21-32 mmol/L Anion Gap 4.0 3-11 mmol/L Blood Urea Nitrogen 7 7-18 mg/dl Creatinine 0.65 0.60-1.40 mg/dl Est Creatinine Clear Calc Drug Dose 145.0 ml/min Estimated GFR () 144.1 Estimated GFR (Non- 124.3 BUN/Creatinine Ratio 10.7 10-20 Random Glucose 77 70-99 mg/dl Calcium Level 7.7 8.5-10.1 mg/dl Assessment & Plan Buttock cellulitis/fistula -con't IV abx -once raedy for discharge would continue po flagyl -will need outpatient follow-up with colorectal outreach as outpatient
[2017-01-02] MEDS: OLANZAPINE 10 MG TAB PO SCH (08:53)
[2017-01-02] MEDS: ESCITALOPRAM OXALATE 10 MG TAB PO SCH (08:53)
[2017-01-02 14:57] VITALS: BP 103/67; PULSE 72; TEMP 36.9; O2SAT 97
--- NOTE | 2017-01-02 15:18 | Medical Consult ---
Consultation Date of Consultation: Jan 02, 2017. Attending Physician: Iker Jones MD Reason for Consultation: Gluteal cellulitis, abscess History of Present Illness 36-year-old male with known history of paranoid schizophrenia, with history of his left gluteal infection, now presents with increasing pain, swelling, and erythema with fever. Has been found to have evidence of buttock cellulitis, abscess formation, and probable perianal fistula. Patient has been started empirically on IV daptomycin, clindamycin, and aztreonam. Cultures from buttock drainage now growing group C Streptococcus. Patient currently afebrile and hemodynamically stable. Pain has decreased. Past Medical/Surgical History Medical Problems: (1) Anemia Status: Acute (2) Elevated platelet count Status: Acute (3) Hypokalemia Status: Acute (4) Noncompliance with medication regimen Status: Acute (5) Perianal abscess Status: Acute (6) Perianal abscess Status: Acute (7) Schizophrenia Status: Acute Medical Problems: (1) Cellulitis, gluteal (2) Depression (3) Paranoid schizophrenia (4) Perirectal abscess (5) Tobacco Use Disorder Family History FH: breast cancer MOTHER Social History Smoking Status: Current Every Day Smoker Alcohol Use: none Drug Use: none Marital Status: single Allergies Coded Allergies: Penicillins (Verified Allergy, Unknown, A CHILD, HAD MEFOXIN IN 2008 WITHOUT PROBLEM, 12/31/16) Current Inpatient Medications Current Inpatient Medications Medications (Trade) Dose Ordered Sig/Danette Route Start Time Stop Time Status Last Admin Dose Admin Aztreonam 2000 mg/ Dextrose 110 ml @ 100 mls/hr Q8H IV 01/01/17 00:00 02/12/17 00:00 01/02/17 08:53 100 MLS/HR Daptomycin 400 mg/ Sodium Chloride 58 ml @ 100 mls/hr Q24H IV 12/31/16 21:30 02/11/17 21:29 01/01/17 22:19 100 MLS/HR Sodium Chloride 1,000 ml @ 125 mls/hr Q8H IV 12/31/16 21:15 01/30/17 21:14 01/02/17 13:59 125 MLS/HR Ibuprofen (Advil Tab) 400 mg QID PRN PO 12/31/16 19:15 01/30/17 19:14 Ketorolac Tromethamine (Toradol Inj) 15 mg Q6H PRN IV 12/31/16 19:15 01/05/17 19:14 01/02/17 01:24 15 MG Acetaminophen (Tylenol Tab) 650 mg Q4H PRN PO 12/31/16 19:15 01/30/17 19:14 Escitalopram Oxalate (Lexapro Tab) 10 mg DAILY PO 01/01/17 09:00 01/31/17 08:59 01/02/17 08:53 10 MG Olanzapine (Zyprexa Tab) 10 mg DAILY PO 01/01/17 09:00 01/31/17 08:59 01/02/17 08:53 10 MG Clindamycin Phosphate 900 mg/ Dextrose 106 ml @ 106 mls/hr Q8 IV 12/31/16 22:00 01/02/17 21:59 01/02/17 13:58 106 MLS/HR Review of Systems All systems were reviewed and are negative except as per HPI Physical Exam Date Time Temp Pulse Resp B/P (MAP) Pulse Ox O2 Delivery O2 Flow Rate FiO2 01/02/17 14:57 36.9 72 18 103/67 (79) 97 Room Air 01/02/17 09:00 Room Air 01/02/17 06:56 37.0 54 17 103/68 (80) 97 Room Air 01/02/17 01:10 Room Air 01/01/17 23:10 37.0 60 16 125/72 (89) 98 Room Air 01/01/17 15:30 Room Air General Appearance: WD/WN, no apparent distress Head: normocephalic, atraumatic Eyes: normal inspection, EOMI, sclerae normal ENT: normal ENT inspection, hearing grossly normal, pharynx normal Neck: supple, no adenopathy, thyroid normal, trachea midline Respiratory/Chest: chest non-tender, lungs clear, normal breath sounds, no respiratory distress Cardiovascular: regular rate, rhythm, no gallop, no murmur Abdomen/GI: normal bowel sounds, non tender, soft, no organomegaly Back: normal inspection, no CVA tenderness Extremities/Musculoskelatal: normal inspection, no calf tenderness, normal capillary refill Neurologic/Psych: alert, oriented x 3 Skin: normal color, no rash, + pertinent finding ( erythema and slight fluctuance left buttock) Lymphatic: no adenopathy Laboratory Results RUN DATE: 01/02/17 [facility] LAB PAGE 1 RUN TIME: 9849 Specimen Inquiry PATIENT: KIERA STANTON LOC: [facility] U # : [id number] AGE/SX: 36/M ROOM: [facility] REG : 12/31/[address]: Iker Jones MD : [id number] BED: 2 DIS : STATUS: ADM IN TLOC: SPEC #: [id number] JANETTE: 12/31/16-UNK STATUS: RES REQ #: [id number] RECD: 12/31/16-[address]: Jacinto Claudio PA -C SOURCE: ABSCESS ENTR: 12/31/16-[address]: Andrews Rodriguez M.D. SPDESC: Gopal Slaughter M.D. ORDERED: DEP ONEIL CUL/SMR COMMENTS: Has Specimen Been Obtained/Collected? Y Procedure Result Verified Site GRAM STAIN Final 01/01/17-1005 RESULT MANY POLYS MANY GRAM POSITIVE COCCI MANY GRAM POSITIVE BACILLI RARE GRAM NEGATIVE BACILLI RARE EPITHELIAL CELLS DEEP WOUND CULTURE Preliminary 01/02/17-1249 Organism 1 GROUP C BETA STREP QUANITY MODERATE SENS SENSITIVITY TO FOLLOW Last 24 Hours Test 01/02/17 06:08 White Blood Count 5.70 K/uL Red Blood Count 3.08 M/uL Hemoglobin 9.6 g/dL Hematocrit 30.3 % Mean Corpuscular Volume 98.4 fL Mean Corpuscular Hemoglobin 31.2 pg Mean Corpuscular Hemoglobin Concent 31.7 g/dl Platelet Count 393 K/uL Mean Platelet Volume 8.3 fL Neutrophils (%) (Auto) 47.4 % Lymphocytes (%) (Auto) 42.5 % Monocytes (%) (Auto) 8.1 % Eosinophils (%) (Auto) 1.6 % Basophils (%) (Auto) 0.2 % Neutrophils # (Auto) 2.71 K/uL Lymphocytes # (Auto) 2.42 K/uL Monocytes # (Auto) 0.46 K/uL Eosinophils # (Auto) 0.09 K/uL Basophils # (Auto) 0.01 K/uL RDW Standard Deviation 52.8 fL RDW Coefficient of Variation 14.6 % Immature Granulocyte % (Auto) 0.2 % Immature Granulocyte # (Auto) 0.01 K/uL Sodium Level 142 mmol/L Potassium Level 4.2 mmol/L Chloride Level 112 mmol/L Carbon Dioxide Level 26 mmol/L Anion Gap 4.0 mmol/L Blood Urea Nitrogen 7 mg/dl Creatinine 0.65 mg/dl Est Creatinine Clear Calc Drug Dose 145.0 ml/min Estimated GFR () 144.1 Estimated GFR (Non- 124.3 BUN/Creatinine Ratio 10.7 Random Glucose 77 mg/dl Calcium Level 7.7 mg/dl HISTORY: Perirectal abscess. Rectal pain. TECHNIQUE: Multiaxial CT images of the pelvis are performed following the use of intravenous contrast. COMPARISON STUDY: Pelvis CT 07/25/2016. FINDINGS: There is again noted skin thickening and subcutaneous fat stranding/soft tissue thickening within the bilateral gluteal regions and extending into the gluteal cleft. There are few small subcutaneous fluid collections at this location which have slightly progressed. The small left subcutaneous gluteal collection appears to contain a small focus of gas and measures 8 mm. The right gluteal subcutaneous fluid collection measures approximately 2.9 x 1.2 cm. The inflammatory change extends to the posterior aspect of the anus. Therefore, there is a probable perianal fistula connection. No evidence for perirectal abscess at this time. Bilateral inguinal lymphadenopathy is again noted. This is not significantly changed. The bladder is unremarkable. IMPRESSION: 1. Slight progression of the bilateral gluteal inflammatory change which contains small subcutaneous abscesses near the gluteal cleft at described above. The inflammatory change extends to the posterior aspect of the anus. Therefore, this suggests a perianal fistula connection. However, this is difficult to clearly identified by CT. 2. No evidence for perirectal abscess at this time. 3. Persistent bilateral inguinal lymphadenopathy. Electronically signed by: Mingo Aguilar M.D. 12/31/2016 5:34 PM Assessment & Plan Patient with gluteal abscess and cellulitis with probable perianal fistula, with cultures positive for group C Streptococcus. Current antibiotics will provide appropriate coverage for now, will likely be able to narrow spectrum in the next day or so and even possibly transition to oral antibiotic therapy. Await final culture results and will adjust antibiotics accordingly. Will follow.
[2017-01-02] MEDS ORDERED: DiphenhydrAMINE INJ 25 MG in SYRINGE 0 ML IV ONE (19:45)
--- NOTE | 2017-01-02 20:21 | Progress Note ---
Medicine Progress Note Date & Time of Visit: Jan 02, 2017 at 20:18. Subjective seen with RN at bedside comfortable states pain on the buttock area is improving no problems with BM denies chills/fever no other symptoms Objective Last 8 Hrs Date Time Temp Pulse Resp B/P (MAP) Pulse Ox O2 Delivery O2 Flow Rate FiO2 01/02/17 14:57 36.9 72 18 103/67 (79) 97 Room Air Physical Exam: General-oriented x 3 ,not in distress, speaks in sentences Eyes- anicteric Neck- no JVD Lungs- clear to auscultation b/l, no rales/wheezes Heart- regular rhythm; no murmur, normal rate Abdomen- normal bowel sounds, soft, nontender Extremities- no pretibial edema, no calf tenderness; peripheral pulses intact Neuro- alert, oriented x 3; no gross focal deficits Skin- warm & dry RIGHT BUTTOCK: indurated areas- improving edema, not palpated as patient declined, medial aspect, with small opening, scant yellow discharge LEFT BUTTOCK: indurated ángel- less edema," , medial aspect, string like material embedded was visible, scant discharge Laboratory Results: Last 24 Hours Test 01/02/17 06:08 White Blood Count 5.70 K/uL Red Blood Count 3.08 M/uL Hemoglobin 9.6 g/dL Hematocrit 30.3 % Mean Corpuscular Volume 98.4 fL Mean Corpuscular Hemoglobin 31.2 pg Mean Corpuscular Hemoglobin Concent 31.7 g/dl Platelet Count 393 K/uL Mean Platelet Volume 8.3 fL Neutrophils (%) (Auto) 47.4 % Lymphocytes (%) (Auto) 42.5 % Monocytes (%) (Auto) 8.1 % Eosinophils (%) (Auto) 1.6 % Basophils (%) (Auto) 0.2 % Neutrophils # (Auto) 2.71 K/uL Lymphocytes # (Auto) 2.42 K/uL Monocytes # (Auto) 0.46 K/uL Eosinophils # (Auto) 0.09 K/uL Basophils # (Auto) 0.01 K/uL RDW Standard Deviation 52.8 fL RDW Coefficient of Variation 14.6 % Immature Granulocyte % (Auto) 0.2 % Immature Granulocyte # (Auto) 0.01 K/uL Sodium Level 142 mmol/L Potassium Level 4.2 mmol/L Chloride Level 112 mmol/L Carbon Dioxide Level 26 mmol/L Anion Gap 4.0 mmol/L Blood Urea Nitrogen 7 mg/dl Creatinine 0.65 mg/dl Est Creatinine Clear Calc Drug Dose 145.0 ml/min Estimated GFR () 144.1 Estimated GFR (Non- 124.3 BUN/Creatinine Ratio 10.7 Random Glucose 77 mg/dl Calcium Level 7.7 mg/dl Assessment & Plan Diagnostics Laboratory Results 36 year old male with history of Paranoid Schizophrenia, Smoking presenting with buttock pain starting last night. GLUTEAL CELLULITIS, POSSIBLE ABSCESS POSSIBLE RETAINED PACKING, HISTORY OF I&D OF CUTANEOUS SINUS TRACTS 07/2016 - not septic remains afebrile, WBC improved - wound culture: group c strep blood cultures: negative - Day 3 Vanco, Aztreonam Day 3 Clindamycin due to mention of possible subcutaneous gas on CT - wound improving - Gen Surg and ID consulted patient declines surgical intervention , removal of seton packing appreciate ID and Gen Surg recommendations - IV fluids, PRN Toradol, Ibuprofen BORDERLINE BP - improving - on IV fluids PARANOID SCHIZOPHRENIA - oriented, cooperative - on Lexapro, Zyprexa DVT prophylaxis - Heparin FULL CODE PER PATIENT Dispo anticipate d/c home when medically stable VTE Prophylaxis VTE Risk Assessment Done? Y/N: Yes Risk Level: Moderate Given or contraindicated: SCD's, Heparin Current Inpatient Medications: Current Inpatient Medications Medications (Trade) Dose Ordered Sig/Danette Route Start Time Stop Time Status Last Admin Dose Admin Aztreonam 2000 mg/ Dextrose 110 ml @ 100 mls/hr Q8H IV 01/01/17 00:00 02/12/17 00:00 01/02/17 16:27 100 MLS/HR Daptomycin 400 mg/ Sodium Chloride 58 ml @ 100 mls/hr Q24H IV 12/31/16 21:30 02/11/17 21:29 01/01/17 22:19 100 MLS/HR Sodium Chloride 1,000 ml @ 125 mls/hr Q8H IV 12/31/16 21:15 01/30/17 21:14 01/02/17 13:59 125 MLS/HR Ibuprofen (Advil Tab) 400 mg QID PRN PO 12/31/16 19:15 01/30/17 19:14 Ketorolac Tromethamine (Toradol Inj) 15 mg Q6H PRN IV 12/31/16 19:15 01/05/17 19:14 01/02/17 01:24 15 MG Acetaminophen (Tylenol Tab) 650 mg Q4H PRN PO 12/31/16 19:15 01/30/17 19:14 Escitalopram Oxalate (Lexapro Tab) 10 mg DAILY PO 01/01/17 09:00 01/31/17 08:59 01/02/17 08:53 10 MG Olanzapine (Zyprexa Tab) 10 mg DAILY PO 01/01/17 09:00 01/31/17 08:59 01/02/17 08:53 10 MG Clindamycin Phosphate 900 mg/ Dextrose 106 ml @ 106 mls/hr Q8 IV 12/31/16 22:00 01/02/17 21:59 01/02/17 13:58 106 MLS/HR
[2017-01-02] MEDS: DAPTOmycin IV 400 MG in SODIUM CHLORIDE 0.9% 50ML 50 ML IV SCH (21:27)
[2017-01-02 23:30] VITALS: BP 135/75; PULSE 65; TEMP 36.9; O2SAT 98
[2017-01-03] MEDS: KETOROLAC TROMETHAMINE 15 MG/ML VIAL IV PRN (04:50)
[2017-01-03] MEDS: SODIUM CHLORIDE 0.9% 1000ML 1,000 ML IV SCH ×2 (05:35→12:35)
--- NOTE | 2017-01-03 05:49 | Surgery Progress Note ---
Surgery Progress Note Date of Service Jan 03, 2017. Subjective Post OP Day: HD 3 + feeling well, + pain controlled, + diet (regular), No nausea, No vomiting Objective Vital Signs: Date Time Temp Pulse Resp B/P (MAP) Pulse Ox O2 Delivery O2 Flow Rate FiO2 01/02/17 23:30 36.9 65 18 135/75 (95) 98 Room Air 01/02/17 19:40 Room Air 01/02/17 14:57 36.9 72 18 103/67 (79) 97 Room Air 01/02/17 09:00 Room Air 01/02/17 06:56 37.0 54 17 103/68 (80) 97 Room Air General Appearance: WD/WN, no apparent distress Head: normocephalic, atraumatic Neck: supple, trachea midline Respiratory/Chest: lungs clear Cardiovascular: regular rate, rhythm Abdomen: normal bowel sounds, non tender, non distended, soft Incision(s): findings (swelling improved; drain age slowing; no fluctuance; seton removed) Extremities: non-tender, no pedal edema Laboratory Results: Results Past 24 Hours Test 01/02/17 06:08 01/03/17 05:27 Range/Units White Blood Count 5.70 4.8-10.8 K/uL Red Blood Count 3.08 4.7-6.1 M/uL Hemoglobin 9.6 14.0-18.0 g/dL Hematocrit 30.3 42-52 % Mean Corpuscular Volume 98.4 80-100 fL Mean Corpuscular Hemoglobin 31.2 25-34 pg Mean Corpuscular Hemoglobin Concent 31.7 32-36 g/dl Platelet Count 393 130-400 K/uL Mean Platelet Volume 8.3 7.4-10.4 fL Neutrophils (%) (Auto) 47.4 % Lymphocytes (%) (Auto) 42.5 % Monocytes (%) (Auto) 8.1 % Eosinophils (%) (Auto) 1.6 % Basophils (%) (Auto) 0.2 % Neutrophils # (Auto) 2.71 1.4-6.5 K/uL Lymphocytes # (Auto) 2.42 1.2-3.4 K/uL Monocytes # (Auto) 0.46 0.11-0.59 K/uL Eosinophils # (Auto) 0.09 0-0.5 K/uL Basophils # (Auto) 0.01 0-0.2 K/uL RDW Standard Deviation 52.8 36.4-46.3 fL RDW Coefficient of Variation 14.6 11.5-14.5 % Immature Granulocyte % (Auto) 0.2 % Immature Granulocyte # (Auto) 0.01 0.00-0.02 K/uL Sodium Level 142 136-145 mmol/L Potassium Level 4.2 3.5-5.1 mmol/L Chloride Level 112 98-107 mmol/L Carbon Dioxide Level 26 21-32 mmol/L Anion Gap 4.0 3-11 mmol/L Blood Urea Nitrogen 7 7-18 mg/dl Creatinine 0.65 0.60-1.40 mg/dl Est Creatinine Clear Calc Drug Dose 145.0 ml/min Estimated GFR () 144.1 Estimated GFR (Non- 124.3 BUN/Creatinine Ratio 10.7 10-20 Random Glucose 77 70-99 mg/dl Calcium Level 7.7 8.5-10.1 mg/dl Assessment & Plan Buttock cellulitis/fistula -con't IV abx; possible switch to oral in AM and discharge -once ready for discharge would continue po flagyl -will need outpatient follow-up with colorectal outreach as outpatient
[2017-01-03 06:16] LABS: BASO % 0.2 %; BASO ABS # 0.01 K/uL (0-0.2); COMPLETE YES; HEMATOCRIT 30.4 % (42-52); IG% 0.2 %; LYMPH % 38.8 %; LYMPH ABS # 2.47 K/uL (1.2-3.4); MEAN CELL VOLUME 98.1 fL (80-100); MEAN CORPUSCULAR HEMOGLOBIN 31.6 pg (25-34); MEAN CORPUSCULAR HGB CONC 32.2 g/dl (32-36); MEAN PLATELET VOLUME 8.5 fL (7.4-10.4); MONO % 5.8 %; PLATELET COUNT 403 K/uL (130-400); WHITE BLOOD COUNT 6.37 K/uL (4.8-10.8)
[2017-01-03 06:44] LABS: BUN/CREATININE RATIO 10.7 (10-20); CALCIUM 7.8 mg/dl (8.5-10.1); CREATININE 0.67 mg/dl (0.60-1.40)
[2017-01-03 06:54] VITALS: BP 125/78; PULSE 62; TEMP 36.9; O2SAT 97
[2017-01-03] MEDS: AZTREONAM IV 2,000 MG in DEXTROSE 5% 100ML 100 ML IV SCH ×2 (07:58→16:45)
[2017-01-03] MEDS: OLANZAPINE 10 MG TAB PO SCH (08:00)
[2017-01-03] MEDS: ESCITALOPRAM OXALATE 10 MG TAB PO SCH (08:00)
[2017-01-03 15:05] VITALS: BP 125/66; PULSE 62; TEMP 37; O2SAT 97
--- NOTE | 2017-01-03 17:56 | Infectious Disease Progress Nt ---
Progress Note Date of Service Jan 03, 2017. Subjective Pt evaluation today including: conversation w/ patient, physical exam, chart review, lab review, review of studies, conversation w/ supply chain consultant, review of inpatient medication list Patient offers no new complaints today. Remains afebrile. Continues to tolerate antibiotics without apparent difficulty. Buttock pain is improving. All Other Systems: Reviewed and Negative Medications Current Inpatient Medications Medications (Trade) Dose Ordered Sig/Danette Route Start Time Stop Time Status Last Admin Dose Admin Aztreonam 2000 mg/ Dextrose 110 ml @ 100 mls/hr Q8H IV 01/01/17 00:00 02/12/17 00:00 01/03/17 16:45 100 MLS/HR Daptomycin 400 mg/ Sodium Chloride 58 ml @ 100 mls/hr Q24H IV 12/31/16 21:30 02/11/17 21:29 01/02/17 21:27 100 MLS/HR Sodium Chloride 1,000 ml @ 125 mls/hr Q8H IV 12/31/16 21:15 01/30/17 21:14 01/03/17 12:35 125 MLS/HR Ibuprofen (Advil Tab) 400 mg QID PRN PO 12/31/16 19:15 01/30/17 19:14 Ketorolac Tromethamine (Toradol Inj) 15 mg Q6H PRN IV 12/31/16 19:15 01/05/17 19:14 01/03/17 04:50 15 MG Acetaminophen (Tylenol Tab) 650 mg Q4H PRN PO 12/31/16 19:15 01/30/17 19:14 Escitalopram Oxalate (Lexapro Tab) 10 mg DAILY PO 01/01/17 09:00 01/31/17 08:59 01/03/17 08:00 10 MG Olanzapine (Zyprexa Tab) 10 mg DAILY PO 01/01/17 09:00 01/31/17 08:59 01/03/17 08:00 10 MG Objective Vital Signs Date Time Temp Pulse Resp B/P (MAP) Pulse Ox O2 Delivery O2 Flow Rate FiO2 01/03/17 16:28 Room Air 01/03/17 15:05 37.0 62 18 125/66 (85) 97 Room Air 01/03/17 08:00 Room Air 01/03/17 06:54 36.9 62 16 125/78 (94) 97 Room Air 01/02/17 23:30 36.9 65 18 135/75 (95) 98 Room Air 01/02/17 19:40 Room Air Physical Exam General Appearance: WD/WN, no apparent distress Eyes: normal inspection, EOMI, sclerae normal ENT: normal ENT inspection, pharynx normal Neck: supple, no adenopathy, trachea midline Respiratory/Chest: lungs clear, normal breath sounds, no respiratory distress Cardiovascular: regular rate, rhythm, no gallop, no murmur Abdomen: normal bowel sounds, non tender, soft, no organomegaly Extremities: non-tender ( I have given 20), no calf tenderness Neurologic/Psychiatric: alert, oriented x 3 Skin: normal color, no rash, + pertinent finding ( decreased erythema buttocks) Lymphatic: no adenopathy Laboratory Results RUN DATE: 01/03/17 [facility] PAGE 1 RUN TIME: 1422 Specimen Inquiry PATIENT: [facility] [place] # : [id number] AGE/SX: 36/M ROOM: [facility] REG : 12/31/[address]: Iker Jones MD : [id number] BED: 2 DIS : STATUS: ADM IN TLOC: SPEC #: [id number] JANETTE: 12/31/16-UNK STATUS: RES REQ #: [id number] RECD: 12/31/16-[address]: Jacinto Claudio PA -C SOURCE: ABSCESS ENTR: 12/31/16-[address]: Andrews Rodriguez M.D. SPDESC: Gopal Slaughter M.D. ORDERED: DEP SIXTOD CUL/SMR COMMENTS: Has Specimen Been Obtained/Collected? Y Procedure Result Verified Site GRAM STAIN Final 01/01/17-1005 RESULT MANY POLYS MANY GRAM POSITIVE COCCI MANY GRAM POSITIVE BACILLI RARE GRAM NEGATIVE BACILLI RARE EPITHELIAL CELLS DEEP WOUND CULTURE Preliminary 01/03/17-1422 Organism 1 GROUP C BETA STREP QUANITY MODERATE SENS NON-VIABLE FOR SENSITIVITIES Organism 2 PREVOTELLA BUCCAE QUANITY MODERATE SENS NO SENSITIVITY TO FOLLOW Organism 3 BACTEROIDES UNIFORMIS QUANITY FEW SENS NO SENSITIVITY TO FOLLOW Last 24 Hours Test 01/03/17 05:27 White Blood Count 6.37 K/uL Red Blood Count 3.10 M/uL Hemoglobin 9.8 g/dL Hematocrit 30.4 % Mean Corpuscular Volume 98.1 fL Mean Corpuscular Hemoglobin 31.6 pg Mean Corpuscular Hemoglobin Concent 32.2 g/dl Platelet Count 403 K/uL Mean Platelet Volume 8.5 fL Neutrophils (%) (Auto) 53.0 % Lymphocytes (%) (Auto) 38.8 % Monocytes (%) (Auto) 5.8 % Eosinophils (%) (Auto) 2.0 % Basophils (%) (Auto) 0.2 % Neutrophils # (Auto) 3.38 K/uL Lymphocytes # (Auto) 2.47 K/uL Monocytes # (Auto) 0.37 K/uL Eosinophils # (Auto) 0.13 K/uL Basophils # (Auto) 0.01 K/uL RDW Standard Deviation 51.7 fL RDW Coefficient of Variation 14.4 % Immature Granulocyte % (Auto) 0.2 % Immature Granulocyte # (Auto) 0.01 K/uL Sodium Level 145 mmol/L Potassium Level 4.0 mmol/L Chloride Level 112 mmol/L Carbon Dioxide Level 28 mmol/L Anion Gap 5.0 mmol/L Blood Urea Nitrogen 7 mg/dl Creatinine 0.67 mg/dl Est Creatinine Clear Calc Drug Dose 140.7 ml/min Estimated GFR () 142.3 Estimated GFR (Non- 122.8 BUN/Creatinine Ratio 10.7 Random Glucose 100 mg/dl Calcium Level 7.8 mg/dl Assessment and Plan Patient with gluteal abscess and cellulitis with 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 Current antibiotics will provide appropriate coverage for now, will likely be able to transition to oral Rx, eg with levofloxacin and metronidazole. Will follow.
--- NOTE | 2017-01-03 19:45 | Progress Note ---
Medicine Progress Note Date & Time of Visit: Jan 03, 2017 at 19:39. Subjective patient seen resting in bed, comfortable seen with RN at bedside states pain on the buttocks/wound continues to improve denies problems with BM no chest pain, dyspnea, dizziness no other symptoms Objective Last 8 Hrs Date Time Temp Pulse Resp B/P (MAP) Pulse Ox O2 Delivery O2 Flow Rate FiO2 01/03/17 16:28 Room Air 01/03/17 15:05 37.0 62 18 125/66 (85) 97 Room Air Physical Exam: General-oriented x 3 ,not in distress, speaks in sentences Eyes- anicteric Neck- no JVD Lungs- clear BS bilaterally Heart- regular rhythm; no murmur, normal rate Abdomen- normal bowel sounds, soft, nontender Extremities- no pretibial edema, no calf tenderness Neuro- alert, oriented x 3; no gross focal deficits Skin- warm & dry RIGHT BUTTOCK: indurated areas- improving edema, mildly tender, medial aspect, with small opening, scant yellow discharge LEFT BUTTOCK: indurated ángel- less edema," , medial aspect, string like material embedded was visible, scant discharge Laboratory Results: Last 24 Hours Test 01/03/17 05:27 White Blood Count 6.37 K/uL Red Blood Count 3.10 M/uL Hemoglobin 9.8 g/dL Hematocrit 30.4 % Mean Corpuscular Volume 98.1 fL Mean Corpuscular Hemoglobin 31.6 pg Mean Corpuscular Hemoglobin Concent 32.2 g/dl Platelet Count 403 K/uL Mean Platelet Volume 8.5 fL Neutrophils (%) (Auto) 53.0 % Lymphocytes (%) (Auto) 38.8 % Monocytes (%) (Auto) 5.8 % Eosinophils (%) (Auto) 2.0 % Basophils (%) (Auto) 0.2 % Neutrophils # (Auto) 3.38 K/uL Lymphocytes # (Auto) 2.47 K/uL Monocytes # (Auto) 0.37 K/uL Eosinophils # (Auto) 0.13 K/uL Basophils # (Auto) 0.01 K/uL RDW Standard Deviation 51.7 fL RDW Coefficient of Variation 14.4 % Immature Granulocyte % (Auto) 0.2 % Immature Granulocyte # (Auto) 0.01 K/uL Sodium Level 145 mmol/L Potassium Level 4.0 mmol/L Chloride Level 112 mmol/L Carbon Dioxide Level 28 mmol/L Anion Gap 5.0 mmol/L Blood Urea Nitrogen 7 mg/dl Creatinine 0.67 mg/dl Est Creatinine Clear Calc Drug Dose 140.7 ml/min Estimated GFR () 142.3 Estimated GFR (Non- 122.8 BUN/Creatinine Ratio 10.7 Random Glucose 100 mg/dl Calcium Level 7.8 mg/dl Assessment & Plan Diagnostics Laboratory Results 36 year old male with history of Paranoid Schizophrenia, Smoking presenting with buttock pain starting last night. 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 Dunn on discharge appreciate ID and Gen Surg recommendations - IV fluids given, PRN Toradol, Ibuprofen BORDERLINE BP - resolved - stop IV fluids PARANOID SCHIZOPHRENIA - oriented, cooperative - on Lexapro, Zyprexa DVT prophylaxis - Heparin FULL CODE PER PATIENT Dispo anticipate d/c home when medically stable ff up with "Colorectal Outreach" in [facility] PCP in 3-5 days after discharge VTE Prophylaxis VTE Risk Assessment Done? Y/N: Yes Risk Level: Moderate Given or contraindicated: SCD's, Heparin Current Inpatient Medications: Current Inpatient Medications Medications (Trade) Dose Ordered Sig/Danette Route Start Time Stop Time Status Last Admin Dose Admin Aztreonam 2000 mg/ Dextrose 110 ml @ 100 mls/hr Q8H IV 01/01/17 00:00 02/12/17 00:00 01/03/17 16:45 100 MLS/HR Daptomycin 400 mg/ Sodium Chloride 58 ml @ 100 mls/hr Q24H IV 12/31/16 21:30 02/11/17 21:29 01/02/17 21:27 100 MLS/HR Sodium Chloride 1,000 ml @ 125 mls/hr Q8H IV 12/31/16 21:15 01/30/17 21:14 01/03/17 12:35 125 MLS/HR Ibuprofen (Advil Tab) 400 mg QID PRN PO 12/31/16 19:15 01/30/17 19:14 Ketorolac Tromethamine (Toradol Inj) 15 mg Q6H PRN IV 12/31/16 19:15 01/05/17 19:14 01/03/17 04:50 15 MG Acetaminophen (Tylenol Tab) 650 mg Q4H PRN PO 12/31/16 19:15 01/30/17 19:14 Escitalopram Oxalate (Lexapro Tab) 10 mg DAILY PO 01/01/17 09:00 01/31/17 08:59 01/03/17 08:00 10 MG Olanzapine (Zyprexa Tab) 10 mg DAILY PO 01/01/17 09:00 01/31/17 08:59 01/03/17 08:00 10 MG
[2017-01-03] MEDS: DAPTOmycin IV 400 MG in SODIUM CHLORIDE 0.9% 50ML 50 ML IV SCH (21:37)
[2017-01-04 00:05] VITALS: BP 157/101; PULSE 86; TEMP 36.6; O2SAT 94
[2017-01-04] MEDS: AZTREONAM IV 2,000 MG in DEXTROSE 5% 100ML 100 ML IV SCH ×2 (01:23→07:50)
[2017-01-04] MEDS: KETOROLAC TROMETHAMINE 15 MG/ML VIAL IV PRN (01:34)
[2017-01-04 02:20] VITALS: BP 109/62
[2017-01-04 06:24] LABS: BASO % 0.1 %; BASO ABS # 0.01 K/uL (0-0.2); COMPLETE YES; EOS % 1.7 %; IG% 0.2 %; LYMPH % 35.1 %; LYMPH ABS # 2.95 K/uL (1.2-3.4); MEAN CELL VOLUME 97.3 fL (80-100); MEAN CORPUSCULAR HEMOGLOBIN 31.9 pg (25-34); MEAN CORPUSCULAR HGB CONC 32.8 g/dl (32-36); MEAN PLATELET VOLUME 8.4 fL (7.4-10.4); MONO % 8.6 %; NEUT % 54.3 %; PLATELET COUNT 457 K/uL (130-400); RED BLOOD COUNT 3.29 M/uL (4.7-6.1); WHITE BLOOD COUNT 8.41 K/uL (4.8-10.8)
[2017-01-04 06:53] LABS: BUN/CREATININE RATIO 12.2 (10-20); CALCIUM 8.1 mg/dl (8.5-10.1); CREATININE 0.72 mg/dl (0.60-1.40); POTASSIUM 3.9 mmol/L (3.5-5.1)
[2017-01-04 06:58] VITALS: BP 134/86; PULSE 63; TEMP 36.8; O2SAT 99
[2017-01-04] MEDS: OLANZAPINE 10 MG TAB PO SCH (07:54)
[2017-01-04] MEDS: ESCITALOPRAM OXALATE 10 MG TAB PO SCH (07:54)
--- NOTE | 2017-01-04 09:49 | Surgery Progress Note ---
Surgery Progress Note Date of Service Jan 04, 2017. Subjective Post OP Day: HD # 4 + feeling well, + bowel movement, + flatus, + pain controlled, + diet ( tolerating regular diet), No complaints, No chest pain, No SOB, No nausea, No vomiting Objective Vital Signs: Date Time Temp Pulse Resp B/P (MAP) Pulse Ox O2 Delivery O2 Flow Rate FiO2 01/04/17 07:45 Room Air 01/04/17 06:58 36.8 63 18 134/86 (102) 99 Room Air 01/04/17 02:20 109/62 (78) 01/04/17 00:15 Room Air 01/04/17 00:05 36.6 86 18 157/101 (119) 94 Room Air 01/03/17 16:28 Room Air 01/03/17 15:05 37.0 62 18 125/66 (85) 97 Room Air General Appearance: WD/WN, no apparent distress Head: normocephalic, atraumatic Neck: trachea midline Respiratory/Chest: no respiratory distress, no accessory muscle use Incision(s): findings (Buttocks, chronic indudration on both buttocks, tender to palpation on left buttocks with some drainage from openings, no erythema or streaking) Laboratory Results: Results Past 24 Hours Test 01/04/17 05:40 Range/Units White Blood Count 8.41 4.8-10.8 K/uL Red Blood Count 3.29 4.7-6.1 M/uL Hemoglobin 10.5 14.0-18.0 g/dL Hematocrit 32.0 42-52 % Mean Corpuscular Volume 97.3 80-100 fL Mean Corpuscular Hemoglobin 31.9 25-34 pg Mean Corpuscular Hemoglobin Concent 32.8 32-36 g/dl Platelet Count 457 130-400 K/uL Mean Platelet Volume 8.4 7.4-10.4 fL Neutrophils (%) (Auto) 54.3 % Lymphocytes (%) (Auto) 35.1 % Monocytes (%) (Auto) 8.6 % Eosinophils (%) (Auto) 1.7 % Basophils (%) (Auto) 0.1 % Neutrophils # (Auto) 4.57 1.4-6.5 K/uL Lymphocytes # (Auto) 2.95 1.2-3.4 K/uL Monocytes # (Auto) 0.72 0.11-0.59 K/uL Eosinophils # (Auto) 0.14 0-0.5 K/uL Basophils # (Auto) 0.01 0-0.2 K/uL RDW Standard Deviation 51.4 36.4-46.3 fL RDW Coefficient of Variation 14.4 11.5-14.5 % Immature Granulocyte % (Auto) 0.2 % Immature Granulocyte # (Auto) 0.02 0.00-0.02 K/uL Sodium Level 144 136-145 mmol/L Potassium Level 3.9 3.5-5.1 mmol/L Chloride Level 110 98-107 mmol/L Carbon Dioxide Level 29 21-32 mmol/L Anion Gap 5.0 3-11 mmol/L Blood Urea Nitrogen 9 7-18 mg/dl Creatinine 0.72 0.60-1.40 mg/dl Est Creatinine Clear Calc Drug Dose 130.9 ml/min Estimated GFR () 138.1 Estimated GFR (Non- 119.2 BUN/Creatinine Ratio 12.2 10-20 Random Glucose 71 70-99 mg/dl Calcium Level 8.1 8.5-10.1 mg/dl Assessment & Plan Buttock Cellulitis/Chronic Fistulas - vitals stable - no leukocytosis - pain improving Plan: Continue IV abx, switch to oral abx on discharge (PO Flagyl TID for 10 days) will need follow-up with Colorectal surgery once discharged continue current medical management Discussed with Dr. Jean who agrees with above
[2017-01-04] MEDS ORDERED: METR500T PO (10:33)
--- NOTE | 2017-01-04 12:10 | Progress Note ---
Medicine Progress Note Date & Time of Visit: Jan 04, 2017 at 12:03. Subjective patient seen resting in bed, comfortable states he feels much better overall pain on the wound sites continues to improve, drainage also much less denies fever/chills, nausea/vomiting no problems with BM ambulating with no problems mood is ok denies other symptoms states he is ready and is ok for discharge today Objective Last 8 Hrs Date Time Temp Pulse Resp B/P (MAP) Pulse Ox O2 Delivery O2 Flow Rate FiO2 01/04/17 07:45 Room Air 01/04/17 06:58 36.8 63 18 134/86 (102) 99 Room Air Physical Exam: General-oriented x 3 ,not in distress, speaks in sentences Eyes- anicteric Neck- no JVD Lungs- clear breath sounds, no rales/wheezes BL Heart- regular rhythm; no murmur, normal rate Abdomen- normal bowel sounds, soft, nontender Extremities- no pretibial edema, no calf tenderness Neuro- alert, oriented x 3; no gross focal deficits Skin- warm & dry RIGHT BUTTOCK: indurated areas- improved edema, non tender, medial aspect, with small openings,no discharge LEFT BUTTOCK: indurated ángel- less edema," , medial aspect,no visible string, no discharge Laboratory Results: Last 24 Hours Test 01/04/17 05:40 White Blood Count 8.41 K/uL Red Blood Count 3.29 M/uL Hemoglobin 10.5 g/dL Hematocrit 32.0 % Mean Corpuscular Volume 97.3 fL Mean Corpuscular Hemoglobin 31.9 pg Mean Corpuscular Hemoglobin Concent 32.8 g/dl Platelet Count 457 K/uL Mean Platelet Volume 8.4 fL Neutrophils (%) (Auto) 54.3 % Lymphocytes (%) (Auto) 35.1 % Monocytes (%) (Auto) 8.6 % Eosinophils (%) (Auto) 1.7 % Basophils (%) (Auto) 0.1 % Neutrophils # (Auto) 4.57 K/uL Lymphocytes # (Auto) 2.95 K/uL Monocytes # (Auto) 0.72 K/uL Eosinophils # (Auto) 0.14 K/uL Basophils # (Auto) 0.01 K/uL RDW Standard Deviation 51.4 fL RDW Coefficient of Variation 14.4 % Immature Granulocyte % (Auto) 0.2 % Immature Granulocyte # (Auto) 0.02 K/uL Sodium Level 144 mmol/L Potassium Level 3.9 mmol/L Chloride Level 110 mmol/L Carbon Dioxide Level 29 mmol/L Anion Gap 5.0 mmol/L Blood Urea Nitrogen 9 mg/dl Creatinine 0.72 mg/dl Est Creatinine Clear Calc Drug Dose 130.9 ml/min Estimated GFR () 138.1 Estimated GFR (Non- 119.2 BUN/Creatinine Ratio 12.2 Random Glucose 71 mg/dl Calcium Level 8.1 mg/dl Assessment & Plan Diagnostics Laboratory Results 36 year old male with history of Paranoid Schizophrenia, Smoking presenting with buttock pain starting last night. 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 Jean and ID Dr. Dunn consulted patient declines surgical intervention , removal of seton packing, will need outpatient follow up with Colorectal outreach of [facility] per patient he took out the Seton packing while he was admitted pain and drainage has significantly improved -- discharge on: Levaquin 500mg po daily x 10 days Flagyl 500mg po TID x 10 days -- ff up with PCP in 3-5 days ff up with Colorectal Surgery in 1 week -- patient advised importance of taking antibiotics as directed and following closely with PCP and Surgeon not doing above may lead to worsening of medical condition including , he verbalized understanding advised proper daily wound care BORDERLINE BP - resolved - given IV fluids PARANOID SCHIZOPHRENIA - oriented, cooperative - on Lexapro, Zyprexa DVT prophylaxis - Heparin FULL CODE PER PATIENT Dispo d/c home PCP in 3-5 days after discharge Colorectal Surgeon in 1 week Current Inpatient Medications: Current Inpatient Medications Medications (Trade) Dose Ordered Sig/Danette Route Start Time Stop Time Status Last Admin Dose Admin Aztreonam 2000 mg/ Dextrose 110 ml @ 100 mls/hr Q8H IV 01/01/17 00:00 02/12/17 00:00 01/04/17 07:50 100 MLS/HR Daptomycin 400 mg/ Sodium Chloride 58 ml @ 100 mls/hr Q24H IV 12/31/16 21:30 02/11/17 21:29 01/03/17 21:37 100 MLS/HR Ibuprofen (Advil Tab) 400 mg QID PRN PO 12/31/16 19:15 01/30/17 19:14 Ketorolac Tromethamine (Toradol Inj) 15 mg Q6H PRN IV 12/31/16 19:15 01/05/17 19:14 01/04/17 01:34 15 MG Acetaminophen (Tylenol Tab) 650 mg Q4H PRN PO 12/31/16 19:15 01/30/17 19:14 Escitalopram Oxalate (Lexapro Tab) 10 mg DAILY PO 01/01/17 09:00 01/31/17 08:59 01/04/17 07:54 10 MG Olanzapine (Zyprexa Tab) 10 mg DAILY PO 01/01/17 09:00 01/31/17 08:59 01/04/17 07:54 10 MG
[2017-01-04] MEDS ORDERED: LEVO500T19 PO (12:14)
--- NOTE | 2017-01-04 12:21 | Discharge Instructions ---
Discharge Instructions Date of Service Jan 04, 2017. Admission Reason for Admission: Cellulitis,Gluteal Discharge Discharge Diagnosis / Problem: CELLULITIS, ABSCESS OF THE BUTTOCKS Discharge Goals Goal(s): Diagnostic testing, Therapeutic intervention Activity Recommendations Activity Limitations: resume your previous activity . Instructions / Follow-Up Instructions / Follow-Up PLEASE REFER TO YOUR NEW MEDICATION LIST AND FOLLOW INSTRUCTIONS CAREFULLY. FINISH ANTIBIOTIC COURSE DIRECTED AND FOLLOW UP CLOSELY WITH YOUR PRIMARY CARE PHYSICIAN AND SURGEON ADVISED FOR PROPER WOUND HEALING AND TREATMENT. ENSURE ADEQUATE DAILY FLUID INTAKE AND INCLUDE YOGURT IN YOUR DAILY DIET. CALL PRIMARY CARE PHYSICIAN OR RETURN TO ER IMMEDIATELY IF WITH RECURRENCE OF SYMPTOMS, INCREASING PAIN/REDNESS/TENDERNESS/DISCHARGE ON THE WOUND SITES, FEVER/CHILLS , WEAKNESS, NAUSEA, DIARRHEA, PROBLEMS WITH BOWEL MOVEMENT. FOLLOW UP WITH DR. ROTH (ASSOCIATE OF DR. EDWARD) ON SATURDAY JANUARY 07, 2017 AT 12:45 PM. FOLLOW UP WITH SURGEON ADVISED BY YOUR PRIMARY CARE PROVIDER. Current Hospital Diet Patient's current hospital diet: Regular Diet Discharge Diet Recommended Diet: Regular Diet Procedures Procedures Performed: CT SCAN PELVIS Pending Studies Studies pending at discharge: no Medical Emergencies . Who to Call and When: Medical Emergencies: If at any time you feel your situation is an emergency, please call 911 immediately. . Non-Emergent Contact Non-Emergency issues call your: Primary Care Provider Call Non-Emergent contact if: you have a fever, your pain is not controlled, your pain is worsening, wound has increased drainage, wound has increased redness, wound has increased pain, you have any medication questions . . "Provider Documentation" section prepared by Iker Jones. . VTE Core Measure Inpt VTE Proph given/why not?: SCD's
--- NOTE | 2017-01-04 12:29 | Discharge Summary ---
Discharge Summary Date of Service Jan 04, 2017. Discharge Summary Admission Date: Dec 31, 2016 at 18:29 Discharge Date: Jan 04, 2017 Discharge Disposition: Home Principal Diagnosis: GLUTEAL CELLULITIS, POSSIBLE ABSCESS RETAINED PACKING, HISTORY OF I&D OF CUTANEOUS SINUS TRACTS 07/2016 Secondary Diagnoses/Problems: PLEASE REFER TO HOSPITAL COURSE BELOW. Procedures: PELVIS CT HISTORY: Perirectal abscess. Rectal pain. TECHNIQUE: Multiaxial CT images of the pelvis are performed following the use of intravenous contrast. COMPARISON STUDY: Pelvis CT 07/25/2016. FINDINGS: There is again noted skin thickening and subcutaneous fat stranding/soft tissue thickening within the bilateral gluteal regions and extending into the gluteal cleft. There are few small subcutaneous fluid collections at this location which have slightly progressed. The small left subcutaneous gluteal collection appears to contain a small focus of gas and measures 8 mm. The right gluteal subcutaneous fluid collection measures approximately 2.9 x 1.2 cm. The inflammatory change extends to the posterior aspect of the anus. Therefore, there is a probable perianal fistula connection. No evidence for perirectal abscess at this time. Bilateral inguinal lymphadenopathy is again noted. This is not significantly changed. The bladder is unremarkable. IMPRESSION: 1. Slight progression of the bilateral gluteal inflammatory change which contains small subcutaneous abscesses near the gluteal cleft at described above. The inflammatory change extends to the posterior aspect of the anus. Therefore, this suggests a perianal fistula connection. However, this is difficult to clearly identified by CT. 2. No evidence for perirectal abscess at this time. 3. Persistent bilateral inguinal lymphadenopathy. Consultations: GENERAL SURGEON DR. ROLLINS, ID DR. DUNN Pending Studies/Follow-Up: PLEASE REFER TO HOSPITAL COURSE BELOW. Medication Reconciliation New Medications: Levofloxacin (Levaquin) 500 Mg Tab 1 TAB PO DAILY for 10 Days, #10 TAB 0 Refills Metronidazole (Flagyl) 500 Mg Tab 500 MG PO TID, #30 TAB Continued Medications: Escitalopram (Lexapro) 10 Mg Tab 10 MG PO DAILY, TAB Olanzapine (Zyprexa) 10 Mg Tab 10 MG PO DAILY, TAB Admission Information HPI (per Admitting provider): 36 year old male with history of Paranoid Schizophrenia, Smoking presenting with buttock pain starting last night. Patient was admitted to [facility] last July 2016 and underwent drainage of large gluteal cutaneous sinus tracts by Dr. Valladares. Packing was done on the right buttock per Operative Notes. Since that time, patient was not able to follow up with the Surgeon nor with his Primary Care Physician. He was apparently feeling well until a few days ago when he started to have discomfort on his buttocks. Last night, the area felt more "irritated" and was draining some abscess. No problems with bowel movement. Denies bleeding. No fever/chills, nausea, headache. Denies other symptoms. He then presented to the ER. BP stable, afebrile, no leukocytosis. CT pelvis showed: 1. Slight progression of the bilateral gluteal inflammatory change which contains small subcutaneous abscesses near the gluteal cleft at described above. The inflammatory change extends to the posterior aspect of the anus. Therefore, this suggests a perianal fistula connection. However, this is difficult to clearly identified by CT. 2. No evidence for perirectal abscess at this time. 3. Persistent bilateral inguinal lymphadenopathy. On exam, patient seen resting in bed, not in distress. Reports mild discomfort on the buttocks. Denies other symptoms. Physical Exam (per Admitting): General Appearance: no apparent distress, + pertinent finding (poor hygiene , unkempt) Head: normocephalic, atraumatic Eyes: normal inspection, EOMI, sclerae normal ENT: normal ENT inspection, hearing grossly normal, pharynx normal Neck: supple, no adenopathy, thyroid normal, no JVD, trachea midline Respiratory/Chest: chest non-tender, lungs clear, normal breath sounds, no respiratory distress, no accessory muscle use Cardiovascular: regular rate, rhythm, no edema, no JVD, no murmur Abdomen/GI: normal bowel sounds, non tender, soft, no organomegaly Back: normal inspection, no CVA tenderness Extremities/Musculoskelatal: normal inspection, no calf tenderness, no pedal edema 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 GLUTEAL CELLULITIS, POSSIBLE ABSCESS, CHRONIC FISTULAS POSSIBLE RETAINED PACKING, HISTORY OF I&D OF CUTANEOUS SINUS TRACTS 07/2016 - not septic remains afebrile, WBC improved - wound culture: group c strep, prevotella, bacteroides blood cultures: negative - Day 5 Dapto, Aztreonam received Clindamycin IV x 3 days - wound improving daily - Gen Surg Dr. Rollins and ID Dr. Dunn consulted patient declines surgical intervention , removal of seton packing, will need outpatient follow up with Colorectal outreach of [facility] per patient he took out the Seton packing while he was admitted pain and drainage has significantly improved -- discharge on: Levaquin 500mg po daily x 10 days Flagyl 500mg po TID x 10 days (please monitor QT interval as patient also on Lexapro and Zyprexa) -- ff up with PCP in 3-5 days ff up with Colorectal Surgery in 1 week (colorectal outreach at [facility] to address joint terminal attack controller treatment of these fistulas) -- patient advised importance of taking antibiotics as directed and following closely with PCP and Surgeon not doing above may lead to worsening of medical condition including , he verbalized understanding advised proper daily wound care BORDERLINE BP - resolved - given IV fluids PARANOID SCHIZOPHRENIA - oriented, cooperative - on Lexapro, Zyprexa DVT prophylaxis - Heparin FULL CODE PER PATIENT Dispo d/c home PCP in 3-5 days after discharge Colorectal Surgeon in 1 week Total time spent on discharge = 40 minutes This includes examination of the patient, discharge planning, medication reconciliation, and communication with other providers. Discharge Instructions Discharge Instructions Date of Service Jan 04, 2017. Admission Reason for Admission: Cellulitis,Gluteal Discharge Discharge Diagnosis / Problem: CELLULITIS, ABSCESS OF THE BUTTOCKS Discharge Goals Goal(s): Diagnostic testing, Therapeutic intervention Activity Recommendations Activity Limitations: resume your previous activity . Instructions / Follow-Up Instructions / Follow-Up PLEASE REFER TO YOUR NEW MEDICATION LIST AND FOLLOW INSTRUCTIONS CAREFULLY. FINISH ANTIBIOTIC COURSE DIRECTED AND FOLLOW UP CLOSELY WITH YOUR PRIMARY CARE PHYSICIAN AND SURGEON ADVISED FOR PROPER WOUND HEALING AND TREATMENT. ENSURE ADEQUATE DAILY FLUID INTAKE AND INCLUDE YOGURT IN YOUR DAILY DIET. CALL PRIMARY CARE PHYSICIAN OR RETURN TO ER IMMEDIATELY IF WITH RECURRENCE OF SYMPTOMS, INCREASING PAIN/REDNESS/TENDERNESS/DISCHARGE ON THE WOUND SITES, FEVER/CHILLS , WEAKNESS, NAUSEA, DIARRHEA, PROBLEMS WITH BOWEL MOVEMENT. FOLLOW UP WITH DR. ROTH (ASSOCIATE OF DR. EDWARD) ON SATURDAY JANUARY 07, 2017 AT 12:45 PM. FOLLOW UP WITH SURGEON ADVISED BY YOUR PRIMARY CARE PROVIDER. Current Hospital Diet Patient's current hospital diet: Regular Diet Discharge Diet Recommended Diet: Regular Diet Procedures Procedures Performed: CT SCAN PELVIS Pending Studies Studies pending at discharge: no Medical Emergencies . Who to Call and When: Medical Emergencies: If at any time you feel your situation is an emergency, please call 911 immediately. . Non-Emergent Contact Non-Emergency issues call your: Primary Care Provider Call Non-Emergent contact if: you have a fever, your pain is not controlled, your pain is worsening, wound has increased drainage, wound has increased redness, wound has increased pain, you have any medication questions . . "Provider Documentation" section prepared by Iker Jones. . VTE Core Measure Inpt VTE Proph given/why not?: SCD's
[2017-01-04 13:29] VITALS: BP 134/86; PULSE 63; TEMP 36.8; O2SAT 99
== END 2017-01-04 14:13 | disposition home or self-care (01) | DRG 603 ==
LOC: C.EDB 14:14 → C.MSW 18:29 → EDBEDREQSVC 18:45 → CANRESERV 18:57 → ENRESERV 18:57 → CANRESERV 19:14 → ENRESERV 19:50
PROVIDERS: ADMIT Internal Medicine; ATTEND Internal Medicine
DX: L03.317 Cellulitis of buttock (principal); F20.0 Paranoid schizophrenia; L02.31 Cutaneous abscess of buttock; B95.4 Other streptococcus as the cause of diseases classified elsewhere; B96.6 Bacteroides fragilis [B. fragilis] as the cause of diseases classified elsewhere; Z80.3 Family history of malignant neoplasm of breast; F17.210 Nicotine dependence, cigarettes, uncomplicated; Z83.3 Family history of diabetes mellitus; Z82.49 Family history of ischemic heart disease and other diseases of the circulatory system; Z18.89 Other specified retained foreign body fragments

== ENCOUNTER 2017-08-04 18:20 | Inpatient (IN) | payer OTHER ==
[~2017-08-04] VITALS: Ht 203.2 cm; Wt 81.1 kg
[~2017-08-04 18:20] MED LIST changes: +ESCI10TA17 PO; -HYDR-5688 PO; -LEVO1TAB33 PO; +LEVO500T19 PO; -METR-163 PO; +OLAN10TA11 PO
[2017-08-04] MEDS ORDERED: SODIUM CHLORIDE 0.9% 1000ML 1,000 ML IV STA (19:35)
[2017-08-04] MEDS ORDERED: HYDROmorphone INJ 1 MG/ML SYR IV STA ×2 (19:35→21:18)
[2017-08-04] MEDS ORDERED: ONDANSETRON INJ 2 MG/ML 2 ML VIAL IV STA (19:35)
[2017-08-04] MEDS ORDERED: METRONIDAZOLE 500MG / 100ML NSS IV STA (19:38)
[2017-08-04] MEDS ORDERED: CEFTRIAXONE SOD INJ 1 GM ADDVIAL IV STA (19:38)
[2017-08-04] MEDS ORDERED: OPTIRAY 320 IV PRN (19:45)
--- NOTE | 2017-08-04 19:50 | EMERGENCY ROOM VISIT NOTE ---
History Report prepared by [place]: Bry Akhtar Under the Supervision of: Dr. Steve Sullivan M.D. First contact with patient: 19:25 Chief Complaint: INFECTION Stated Complaint: RECTAL ABCESS Nursing Triage Summary: Patient has a perirectal abscess. History of the same. History of Present Illness The patient is a 37 year old male who presents to the Emergency Room with complaints of worsening pain secondary to a rectal abscess that he has chronically. The patient states that he has a history of issues with rectal abscesses and commonly comes to the ED to have them drained. The patient states that he has been in communication with a surgeon who is going to look at a better way to handle the abscess. He has an MRI scheduled this month. Source of History: patient Onset: Chronic Position: other (Rectum) Quality: other (Abscess, known) Timing: worsening Review of Systems See HPI for pertinent positives & negatives. A total of 10 systems reviewed and were otherwise negative. Past Medical & Surgical Medical Problems: (1) Depression (2) Paranoid schizophrenia (3) Perirectal abscess (4) Tobacco use disorder (5) Tobacco Use Disorder Family History FH: breast cancer MOTHER Social History Smoking Status: Current Every Day Smoker Alcohol Use: occasionally Drug Use: none Marital Status: single Current/Historical Medications Scheduled Escitalopram (Lexapro), 10 MG PO DAILY Olanzapine (Zyprexa), 10 MG PO DAILY Allergies Coded Allergies: Penicillins (Verified Allergy, Unknown, A CHILD, HAD MEFOXIN IN 2008 WITHOUT PROBLEM, 08/04/17) Physical Exam Vital Signs Date Time Temp Pulse Resp B/P (MAP) Pulse Ox O2 Delivery O2 Flow Rate FiO2 08/04/17 22:59 105 18 106/57 97 08/04/17 22:18 105 18 106/57 97 Room Air 08/04/17 20:20 109 18 130/76 95 Room Air 08/04/17 18:43 36.5 138 16 123/82 99 Room Air Physical Exam GENERAL: Awake, alert, well-appearing, in no acute distress HENT: Normocephalic, atraumatic. Oropharynx unremarkable. EYES: Normal conjunctiva. Sclera non-icteric. NECK: Supple. No nuchal rigidity. FROM. No JVD. RESPIRATORY: Clear to auscultation. CARDIAC: Regular rate, normal rhythm. Extremities warm and well perfused. Pulses equal. ABDOMEN: Soft, non-distended. No tenderness to palpation. No rebound or guarding. No masses. RECTAL: Deferred. MUSCULOSKELETAL: Chest examination reveals no tenderness. The back is symmetrical on inspection without obvious abnormality. There is no CVA tenderness to palpation. No joint edema. LOWER EXTREMITIES: Calves are equal size bilaterally and non-tender. No edema. No discoloration. NEURO: Normal sensorium. No sensory or motor deficits noted. SKIN: No rash or jaundice noted. RECTAL: There is a large amount of scar tissue present. There is a large right abscess to the right gluteal area. Medical Decision & Procedures ER Provider Diagnostic Interpretation: Radiology results as stated below per my review and radiologist interpretation: PELVIS W/IV CONT ONLY (CT) HISTORY: 37 years-old Male follow-up study in a patient with perirectal abscess. COMPARISON: CT pelvis 12/31/2016 TECHNIQUE: Multiple axial CT images of the pelvis were obtained following the intravenous administration of 93 mL Optiray 320. A dose lowering technique was used consistent with the principals of ANIYAH. FINDINGS: Mild atherosclerosis of the distal aorta and iliac bifurcation without aneurysm identified. No bulky intrapelvic adenopathy. Enlarged inguinal chain lymph nodes are present bilaterally measuring up to 1.3 cm in short axis, likely reactive. Urinary bladder, prostate, sigmoid colon and appendix appear unremarkable. No bowel obstruction identified. Fluid-filled terminal ileum is likely physiologic. Imaged inferior right hepatic lobe is unremarkable. No ascites or pneumoperitoneum. There is skin thickening with stranding of the subcutaneous tissues involving the bilateral inferior gluteal folds which appears similar from comparison study compatible with cellulitis. The previously described local fluid collections on the right are not clearly identified on today's study. Multiloculated fluid collection involving the posterior medial aspect of the inferior left gluteal fold measures up to 2.0 x 8.3 x 4.8 cm nicely seen on image 306 series 3. No definite connection to the adjacent anus. No subcutaneous emphysema identified to suggest fasciitis. The bones appear unremarkable. IMPRESSION: 1. Cellulitis of the bilateral inferior gluteal folds with multiloculated fluid collection of the inferior left gluteal fold measuring up to 8.3 cm in greatest dimension compatible with abscess. No definite fistulous connection to the anus identified on these images to suggest perianal fistula. 2. No evidence of perirectal abscess. 3. Bilateral inguinal adenopathy, likely reactive. The above report was generated using voice recognition software. It may contain grammatical, syntax or spelling errors. Electronically signed by: Jim Bishop M.D. 08/04/2017 9:01 PM Dictated Date/Time: 08/04/2017 8:53 PM Laboratory Results 08/04/17 20:09 Red Blood Count 4.00, Mean Corpuscular Volume 93.5, Mean Corpuscular Hemoglobin 32.8, Mean Corpuscular Hemoglobin Concent 35.0, Mean Platelet Volume 8.2, Neutrophils (%) (Auto) 66.3, Lymphocytes (%) (Auto) 25.5, Monocytes (%) (Auto) 5.8, Eosinophils (%) (Auto) 1.8, Basophils (%) (Auto) 0.2, Neutrophils # (Auto) 8.12, Lymphocytes # (Auto) 3.13, Monocytes # (Auto) 0.71, Eosinophils # (Auto) 0.22, Basophils # (Auto) 0.03 08/04/17 20:09 Test 08/04/17 20:09 08/04/17 20:14 08/04/17 22:29 White Blood Count 12.26 K/uL (4.8-10.8) Red Blood Count 4.00 M/uL (4.7-6.1) Hemoglobin 13.1 g/dL (14.0-18.0) Hematocrit 37.4 % (42-52) Mean Corpuscular Volume 93.5 fL (80-100) Mean Corpuscular Hemoglobin 32.8 pg (25-34) Mean Corpuscular Hemoglobin Concent 35.0 g/dl (32-36) Platelet Count 554 K/uL (130-400) Mean Platelet Volume 8.2 fL (7.4-10.4) Neutrophils (%) (Auto) 66.3 % Lymphocytes (%) (Auto) 25.5 % Monocytes (%) (Auto) 5.8 % Eosinophils (%) (Auto) 1.8 % Basophils (%) (Auto) 0.2 % Neutrophils # (Auto) 8.12 K/uL (1.4-6.5) Lymphocytes # (Auto) 3.13 K/uL (1.2-3.4) Monocytes # (Auto) 0.71 K/uL (0.11-0.59) Eosinophils # (Auto) 0.22 K/uL (0-0.5) Basophils # (Auto) 0.03 K/uL (0-0.2) RDW Standard Deviation 57.8 fL (36.4-46.3) RDW Coefficient of Variation 16.7 % (11.5-14.5) Immature Granulocyte % (Auto) 0.4 % Immature Granulocyte # (Auto) 0.05 K/uL (0.00-0.02) Est Creatinine Clear Calc Drug Dose 116.2 ml/min Estimated GFR () 125.7 Estimated GFR (Non- 108.5 BUN/Creatinine Ratio 7.0 (10-20) Calcium Level 9.1 mg/dl (8.5-10.1) Total Bilirubin 0.2 mg/dl (0.2-1) Direct Bilirubin < 0.1 mg/dl (0-0.2) Aspartate Amino Transf (AST/SGOT) 15 U/L (15-37) Alanine Aminotransferase (ALT/SGPT) 18 U/L (12-78) Alkaline Phosphatase 113 U/L (45-117) Total Protein 9.1 gm/dl (6.4-8.2) Albumin 3.8 gm/dl (3.4-5.0) Lipase 96 U/L (73-393) Bedside Hemoglobin 13.6 g/dl (14.0-18.0) Bedside Hematocrit 40 % (42-52) Bedside Sodium 139 mEq/L (135-144) Bedside Potassium 3.9 mEq/L (3.3-5.0) Bedside Chloride 98 mEq/L (101-112) Bedside Total CO2 31 mEq/l (24-31) Anion Gap 15.0 mmol/L (16-25) Bedside Blood Urea Nitrogen 5 mg/dl (7-18) Bedside Creatinine 0.9 mg/dl (0.6-1.3) Bedside Glucose (other) 91 mg/dl (70-99) Bedside Ionized Calcium ([place]) 1.13 mmol/l (1.12-1.32) Prothrombin Time 10.7 SECONDS (9.0-12.0) Prothromb Time International Ratio 1.0 (0.9-1.1) Labs reviewed by ED physician. Medications Administered Medications (Trade) Dose Ordered Sig/Danette Route Start Time Stop Time Status Last Admin Dose Admin Sodium Chloride 1,000 ml @ 999 mls/hr Q1H1M STAT IV 08/04/17 19:35 08/04/17 20:35 DC 08/04/17 20:21 999 MLS/HR Hydromorphone HCl (Dilaudid Inj) 1 mg NOW STAT IV 08/04/17 19:35 08/04/17 19:37 DC 08/04/17 20:22 1 MG Ondansetron HCl (Zofran Inj) 4 mg NOW STAT IV 08/04/17 19:35 08/04/17 19:37 DC 08/04/17 20:21 4 MG Metronidazole (Flagyl / Nss) 500 mg NOW STAT IV 08/04/17 19:38 08/04/17 19:40 DC 08/04/17 21:08 500 MG Ceftriaxone Sodium (Rocephin Inj) 1 gm NOW STAT IV 08/04/17 19:38 08/04/17 19:40 DC 08/04/17 20:22 1 GM Escitalopram Oxalate (Lexapro Tab) 10 mg NOW ONCE PO 08/04/17 23:00 08/04/17 23:01 DC 08/04/17 22:55 10 MG Olanzapine (Zyprexa Tab) 10 mg NOW ONCE PO 08/04/17 23:00 08/04/17 23:01 DC 08/04/17 22:55 10 MG Procedure Incision & Drainage Indication: Abscess. Location: Left Gluteus Abscess Verbal consent was obtained after the risks and benefits were explained, including but not limited to bleeding, scarring, infection, pain, and bone/joint /nerve damage. At this time, the risks of the procedure are less than the risks of NOT performing the procedure. A time out was taken and the correct patient and site identified. The skin was prepped with betadine and a sterile field set. The wound was anesthetized with 2 ml of 1% lidocaine without epinephrine. I extracted 15 cc of puss/fluid using a syringe needle. Debridement was not performed. Detailed wound care instructions and signs and symptoms of worsening infection reviewed with the patient. No complications and the patient tolerated the procedure well. ED Course 1928: Past medical records reviewed. The patient was evaluated in room B9. A complete history and physical examination was performed. 1934: Ordered Zofran 4 mg IV, Dilaudid 1 mg IV, Sodium Chloride 1000 mL @ 999 mL /hr IV. 1937: Ordered Rocephin 1 gm IV, Flagyl 500 mg IV. 2112: Ordered Lidocaine/Epinephrine 20 mL INFIL. 2117: Ordered Dilaudid 1 mg IV. 2124: I discussed the case with Dr. Edwards. She suggests admitting to medicine and she will follow-up in the morning. 2141: I discussed the case with Dr. Chino Bravo. He will evaluate the patient for further treatment. Medical Decision Differential diagnosis: Etiologies such as cellulitis, abscess, MRSA infection, DVT, necrotizing fasciitis, dermatitis, drug eruption, as well as others were entertained. This is a 37-year-old male with a history of noncompliance to his medications that presents with a large gluteal abscess. This was drained as above. Due to the patient's poor follow-up and his multiple presentations with surgery I did discuss this case with the surgical service who asked that the patient be admitted to the hospitalist. Patient was pancultured. He was given normal saline bolus as well as Dilaudid 2. He was started on Rocephin and IV Flagyl. I did discuss case with the hospitalist service who agreed to admit the patient. Patient was in agreement with the treatment plan. Medication Reconcilliation Current Medication List: was personally reviewed by me Blood Pressure Screening Patient's blood pressure: Normal blood pressure Consults Time Called: 2120 Consulting Physician: Dr. Edwards Returned Call: 2124 I discussed the case with Dr. Edwards. She suggests admitting to medicine and she will follow-up in the morning. Additional Consults: Time Called: 2134 Consulted Physician: Dr. Chino Bravo. Returned Call: 2141 Additional Comments: I discussed the case with Dr. Chino Bravo. He will evaluate the patient for further treatment. Impression Primary Impression: Cellulitis, gluteal Additional Impression: Perirectal abscess Scribe Attestation The scribe's documentation has been prepared under my direction and personally reviewed by me in its entirety. I confirm that the note above accurately reflects all work, treatment, procedures, and medical decision making performed by me. Departure Information Dispostion Being Evaluated By Hospitalist Referrals No Doctor, Assigned (PCP) Patient Instructions My [facility] Problem Qualifiers
[2017-08-04 20:27] LABS: BASO % 0.2 %; BASO ABS # 0.03 K/uL (0-0.2); EOS % 1.8 %; EOS ABS # 0.22 K/uL (0-0.5); HEMATOCRIT 37.4 % (42-52); HEMOGLOBIN 13.1 g/dL (14.0-18.0); IG# 0.05 K/uL (0.00-0.02); LYMPH % 25.5 %; LYMPH ABS # 3.13 K/uL (1.2-3.4); MEAN CELL VOLUME 93.5 fL (80-100); MEAN CORPUSCULAR HEMOGLOBIN 32.8 pg (25-34); MEAN PLATELET VOLUME 8.2 fL (7.4-10.4); MONO % 5.8 %; MONO ABS # 0.71 K/uL (0.11-0.59); NEUT % 66.3 %; NEUT ABS # 8.12 K/uL (1.4-6.5); PLATELET COUNT 554 K/uL (130-400); RED CELL DISTRIBUTION WIDTH CV 16.7 % (11.5-14.5); RED CELL DISTRIBUTION WIDTH SD 57.8 fL (36.4-46.3); WHITE BLOOD COUNT 12.26 K/uL (4.8-10.8)
[2017-08-04 20:28] LABS: ISTAT CREATININE 0.9 mg/dl (0.6-1.3); ISTAT IONIZED CALCIUM 1.13 mmol/l (1.12-1.32); ISTAT POTASSIUM 3.9 mEq/L (3.3-5.0)
[2017-08-04 20:50] LABS: ALBUMIN 3.8 gm/dl (3.4-5.0); ALT/SGPT 18 U/L (12-78); BLOOD UREA NITROGEN 6 mg/dl (7-18); CALCIUM 9.1 mg/dl (8.5-10.1); CARBON DIOXIDE 29 mmol/L (21-32); CREATININE 0.89 mg/dl (0.60-1.40); GLUCOSE 84 mg/dl (70-99); LIPASE 96 U/L (73-393); POTASSIUM 3.7 mmol/L (3.5-5.1); SODIUM 135 mmol/L (136-145)
[2017-08-04 20:53] LABS: ALKALINE PHOSPHATASE 113 U/L (45-117); AST/SGOT 15 U/L (15-37); TOTAL PROTEIN 9.1 gm/dl (6.4-8.2)
--- NOTE | 2017-08-04 21:02 | DIAGNOSTIC IMAGING REPORT ---
PELVIS W/IV CONT ONLY (CT) HISTORY: 37 years-old Male follow-up study in a patient with perirectal abscess. COMPARISON: CT pelvis 12/31/2016 TECHNIQUE: Multiple axial CT images of the pelvis were obtained following the intravenous administration of 93 mL Optiray 320. A dose lowering technique was used consistent with the principals of ANIYAH. FINDINGS: Mild atherosclerosis of the distal aorta and iliac bifurcation without aneurysm identified. No bulky intrapelvic adenopathy. Enlarged inguinal chain lymph nodes are present bilaterally measuring up to 1.3 cm in short axis, likely reactive. Urinary bladder, prostate, sigmoid colon and appendix appear unremarkable. No bowel obstruction identified. Fluid-filled terminal ileum is likely physiologic. Imaged inferior right hepatic lobe is unremarkable. No ascites or pneumoperitoneum. There is skin thickening with stranding of the subcutaneous tissues involving the bilateral inferior gluteal folds which appears similar from comparison study compatible with cellulitis. The previously described local fluid collections on the right are not clearly identified on today's study. Multiloculated fluid collection involving the posterior medial aspect of the inferior left gluteal fold measures up to 2.0 x 8.3 x 4.8 cm nicely seen on image 306 series 3. No definite connection to the adjacent anus. No subcutaneous emphysema identified to suggest fasciitis. The bones appear unremarkable. IMPRESSION: 1. Cellulitis of the bilateral inferior gluteal folds with multiloculated fluid collection of the inferior left gluteal fold measuring up to 8.3 cm in greatest dimension compatible with abscess. No definite fistulous connection to the anus identified on these images to suggest perianal fistula. 2. No evidence of perirectal abscess. 3. Bilateral inguinal adenopathy, likely reactive. The above report was generated using voice recognition software. It may contain grammatical, syntax or spelling errors. Electronically signed by: Jim Bishop M.D. 08/04/2017 9:01 PM Dictated Date/Time: 08/04/2017 8:53 PM
[2017-08-04] MEDS ORDERED: LIDOCAINE/EPINEPHRINE 1% 20 ML VIAL INFIL STA (21:13)
[2017-08-04] MEDS ORDERED: MAGNESIUM HYDROXIDE SUSP 30 ML UDC PO PRN (22:00)
[2017-08-04] MEDS ORDERED: ACETAMINOPHEN 325 MG TAB PO PRN (22:00)
[2017-08-04] MEDS ORDERED: ONDANSETRON INJ 2 MG/ML 2 ML VIAL IV PRN (22:00)
[2017-08-04] MEDS ORDERED: LORAZEPAM 2 MG/ML 1 ML VIAL IV PRN (22:00)
[2017-08-04] MEDS ORDERED: ALUMINUM/MAGNESIUM/SIMETH (MAALOX MAX) 30 ML UDC PO PRN (22:00)
[2017-08-04] MEDS ORDERED: POLYETHYLENE (MIRALAX) 17 GM PACK PO PRN (22:00)
--- NOTE | 2017-08-04 22:28 | History and Physical ---
History & Physical Date & Time of Service: Aug 04, 2017 at 22:17 Chief Complaint: Rectal Abcess Primary Care Physician: Gopal Beckett M.D. History of Present Illness Source: patient, clinic records, hospital records This is a 37-year-old male with a past medical history of schizophrenia, depression, tobacco use disorder, and recurrent perirectal abscesses who presents with perirectal pain 3 days. Patient has required multiple I&D's in the past. Over the course of the last year, patient has experienced intermittent pain and spontaneous perirectal drainage. Has plans for an MRI later this month to evaluate for surgical involvement. Three days ago, patient has had constant, sharp pressure in the perianal area with associated redness and drainage. Pain was severe enough that patient is unable to sit down. Was evaluated by PCP earlier today and sent to the ED for pain management and surgical evaluation. Denies fever, chills, lightheadedness, headache, chest pain, shortness of breath, abdominal pain, nausea, vomiting, constipation or diarrhea. 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 (4) Tobacco use disorder Status: Chronic Family History FH: breast cancer MOTHER Social History Smoking Status: Current Every Day Smoker Alcohol Use: none Drug Use: none Marital Status: single Housing status: lives with roommate Immunizations History of Influenza Vaccine: Unknown History of Tetanus Vaccine?: Yes Tetanus Immunization Date: May 10, 2005 History of Pneumococcal: No History of Hepatitis B Vaccine: Unknown Hepatitis Immunization Date: May 10, 2005 Allergies Coded Allergies: Penicillins (Verified Allergy, Unknown, A CHILD, HAD MEFOXIN IN 2008 WITHOUT PROBLEM, 08/04/17) Home Medications Scheduled Escitalopram (Lexapro), 10 MG PO DAILY Olanzapine (Zyprexa), 10 MG PO DAILY Review of Systems Ten systems reviewed and negative except as noted in the HPI. Physical Exam Vital Signs Date Time Temp Pulse Resp B/P (MAP) Pulse Ox O2 Delivery O2 Flow Rate FiO2 08/04/17 20:20 109 18 130/76 95 Room Air 08/04/17 18:43 36.5 138 16 123/82 99 Room Air General Appearance: + mild distress, + pertinent finding (Lying on side ) Head: normocephalic, atraumatic Eyes: normal inspection, PERRL, sclerae normal ENT: normal ENT inspection, hearing grossly normal, pharynx normal Neck: supple, thyroid normal, trachea midline Respiratory/Chest: chest non-tender, lungs clear, normal breath sounds, no respiratory distress, no accessory muscle use Cardiovascular: regular rate, rhythm, no murmur, normal peripheral pulses Abdomen/GI: non tender, soft, no organomegaly Extremities/Musculoskelatal: normal inspection, no calf tenderness, no pedal edema Neurologic/Psych: no motor/sensory deficits, alert, normal mood/affect, oriented x 3 Skin: + pertinent finding (Presence of 3cm abscess on left perianal area with purulent drainage and surrounding erythema. ) Diagnostics Laboratory Results Results Past 24 Hours Test 08/04/17 20:09 08/04/17 20:14 08/04/17 21:53 08/04/17 21:55 Range/Units White Blood Count 12.26 4.8-10.8 K/uL Red Blood Count 4.00 4.7-6.1 M/uL Hemoglobin 13.1 14.0-18.0 g/dL Hematocrit 37.4 42-52 % Mean Corpuscular Volume 93.5 80-100 fL Mean Corpuscular Hemoglobin 32.8 25-34 pg Mean Corpuscular Hemoglobin Concent 35.0 32-36 g/dl Platelet Count 554 130-400 K/uL Mean Platelet Volume 8.2 7.4-10.4 fL Neutrophils (%) (Auto) 66.3 % Lymphocytes (%) (Auto) 25.5 % Monocytes (%) (Auto) 5.8 % Eosinophils (%) (Auto) 1.8 % Basophils (%) (Auto) 0.2 % Neutrophils # (Auto) 8.12 1.4-6.5 K/uL Lymphocytes # (Auto) 3.13 1.2-3.4 K/uL Monocytes # (Auto) 0.71 0.11-0.59 K/uL Eosinophils # (Auto) 0.22 0-0.5 K/uL Basophils # (Auto) 0.03 0-0.2 K/uL RDW Standard Deviation 57.8 36.4-46.3 fL RDW Coefficient of Variation 16.7 11.5-14.5 % Immature Granulocyte % (Auto) 0.4 % Immature Granulocyte # (Auto) 0.05 0.00-0.02 K/uL Sodium Level 135 136-145 mmol/L Potassium Level 3.7 3.5-5.1 mmol/L Chloride Level 99 98-107 mmol/L Carbon Dioxide Level 29 21-32 mmol/L Anion Gap 7.0 15.0 16-25 mmol/L Blood Urea Nitrogen 6 7-18 mg/dl Creatinine 0.89 0.60-1.40 mg/dl Est Creatinine Clear Calc Drug Dose 116.2 ml/min Estimated GFR () 125.7 Estimated GFR (Non- 108.5 BUN/Creatinine Ratio 7.0 10-20 Random Glucose 84 70-99 mg/dl Calcium Level 9.1 8.5-10.1 mg/dl Total Bilirubin 0.2 0.2-1 mg/dl Direct Bilirubin < 0.1 0-0.2 mg/dl Aspartate Amino Transf (AST/SGOT) 15 15-37 U/L Alanine Aminotransferase (ALT/SGPT) 18 12-78 U/L Alkaline Phosphatase 113 45-117 U/L Total Protein 9.1 6.4-8.2 gm/dl Albumin 3.8 3.4-5.0 gm/dl Lipase 96 73-393 U/L Bedside Hemoglobin 13.6 14.0-18.0 g/dl Bedside Hematocrit 40 42-52 % Bedside Sodium 139 135-144 mEq/L Bedside Potassium 3.9 3.3-5.0 mEq/L Bedside Chloride 98 101-112 mEq/L Bedside Total CO2 31 24-31 mEq/l Bedside Blood Urea Nitrogen 5 7-18 mg/dl Bedside Creatinine 0.9 0.6-1.3 mg/dl Bedside Glucose (other) 91 70-99 mg/dl Bedside Ionized Calcium (Marianna) 1.13 1.12-1.32 mmol/l Microbiology Results 08/04/17 Blood Culture, Ordered Pending 08/04/17 Blood Culture, Ordered Pending 08/04/17 Gram Stain, Received Pending 08/04/17 Wound Culture, Received Pending Diagnostic Radiology Pelvis CT: IMPRESSION: 1. Cellulitis of the bilateral inferior gluteal folds with multiloculated fluid collection of the inferior left gluteal fold measuring up to 8.3 cm in greatest dimension compatible with abscess. No definite fistulous connection to the anus identified on these images to suggest perianal fistula. 2. No evidence of perirectal abscess. 3. Bilateral inguinal adenopathy, likely reactive. Impression Assessment and Plan Patient seen in collaboration with Dr. Soler. Please see addendum for assessment and plan. ATTENDING ADDENDUM: Patient seen and examined, care coordinated with Ángela Rooney PA-C, 37-year-old male with medical history of schizophrenia, recurrent perirectal abscess Was seen at [facility], with complain of 3 days of worsening pain, drainage perirectal area No fever chills Patient was instructed to come to the ER, possible surgical evaluation and I&D and IV antibiotics In the ER patient was found to be tachycardic heart rate sinus tach and 109 Blood pressure 106/57 Pulse oximetry 97% room air Patient was afebrile, temperature 36.5 Lab: Mild leukocytosis of 12,000 Chemistry shows hyponatremia sodium 135 Procalcitonin, lactic acid level is pending Physical exam: Please see Madison Rooney PA-C documentation CT of pelvis:Cellulitis of bilateral inferior foods with multiloculated fluid collection of the inferior left gluteal fold measuring up to 8.3 cm in greatest dimension compatible with abscess ASSESSMENT AND PLAN: . PERIRECTAL ABSCESS: History of recurrent rectal cellulitis/abscess -Presents with worsening of symptoms in the last 3 days No fever or chills- No evidence of sepsis- -CT of pelvis: 8.3 cm abscess noted Patient will be admitted to medical floor-, IV antibiotic with Cipro and Flagyl Order for blood culture- Surgery evaluation requested, will need I&D N.p.o. past midnight-possible procedure tomorrow -Patient will benefit postprocedure wound VAC/wound care, to prevent recurrence of infection Wound care consult requested- LEUKOCYTOSIS: WBC elevated 12 K Due to perirectal abscess Empiric antibiotic with IV Cipro and Flagyl Blood cultures ordered Repeat CBC HYPONATREMIA: Sodium 135, due to poor p.o. intake/dehydration IV fluids Repeat PRP SCHIZOAFFECTIVE DISORDER continue outpatient meds of Zyprexa: continue SSRI TOBACCO ABUSE DISORDER: Smoking cessation counseling Ordered for nicotine patch CODE STATUS: Full code DVT prophylaxis: SCD and teds Pharmacological anticoagulation avoided for possible surgical procedure tomorrow DISPOSITION: Expected to be discharged home when medically stable Medicine follow-up with Dr. Prince Rylie Soler MD Resuscitation Status VTE Prophylaxis Will order VTE Prophylaxis: Yes
--- NOTE | 2017-08-04 22:39 | Progress Note ---
Progress Note Date of Service Aug 04, 2017. Progress Note ATTENDING ADDENDUM: Patient seen and examined, care coordinated with Ángela Rooney PA-C, 37-year-old male with medical history of schizophrenia, recurrent perirectal abscess [facility], with complain of 3 days of worsening pain, drainage perirectal area No fever chills Patient was instructed to come to the ER, possible surgical evaluation and I&D and IV antibiotics In the ER patient was found to be tachycardic heart rate sinus tach and 109 Blood pressure 106/57 Pulse oximetry 97% room air Patient was afebrile, temperature 36.5 Lab: Mild leukocytosis of 12,000 Chemistry shows hyponatremia sodium 135 Procalcitonin, lactic acid level is pending Physical exam: Please see Madison Rooney PA-C documentation CT of pelvis:Cellulitis of bilateral inferior foods with multiloculated fluid collection of the inferior left gluteal fold measuring up to 8.3 cm in greatest dimension compatible with abscess ASSESSMENT AND PLAN: . PERIRECTAL ABSCESS: History of recurrent rectal cellulitis/abscess -Presents with worsening of symptoms in the last 3 days No fever or chills- No evidence of sepsis- -CT of pelvis: 8.3 cm abscess noted Patient will be admitted to medical floor-, IV antibiotic with Cipro and Flagyl Order for blood culture- Surgery evaluation requested, will need I&D N.p.o. past midnight-possible procedure tomorrow -Patient will benefit postprocedure wound VAC/wound care, to prevent recurrence of infection Wound care consult requested- LEUKOCYTOSIS: WBC elevated 12 K Due to perirectal abscess Empiric antibiotic with IV Cipro and Flagyl Blood cultures ordered Repeat CBC HYPONATREMIA: Sodium 135, due to poor p.o. intake/dehydration IV fluids Repeat PRP SCHIZOAFFECTIVE DISORDER continue outpatient meds of Zyprexa: continue SSRI TOBACCO ABUSE DISORDER: Smoking cessation counseling Ordered for nicotine patch CODE STATUS: Full code DVT prophylaxis: SCD and teds Pharmacological anticoagulation avoided for possible surgical procedure tomorrow DISPOSITION: Expected to be discharged home when medically stable Medicine follow-up with Dr. Prince Rylie Soler MD
--- NOTE | 2017-08-04 22:48 | DIAGNOSTIC IMAGING REPORT ---
CHEST ONE VIEW PORTABLE HISTORY: 37 years-old Male pre op preoperative exam. No acute chest complaints. COMPARISON: None available TECHNIQUE: Portable AP view of the chest FINDINGS: Cardiomediastinal and hilar silhouettes are within normal limits. There is no pneumothorax, pleural effusion, focal airspace consolidation or overt pulmonary edema. The bones of the chest appear grossly intact. IMPRESSION: No acute process. The above report was generated using voice recognition software. It may contain grammatical, syntax or spelling errors. Electronically signed by: Jim Bishop M.D. 08/04/2017 10:47 PM Dictated Date/Time: 08/04/2017 10:46 PM
[2017-08-04 22:59] VITALS: O2SAT 97
[2017-08-04] MEDS ORDERED: OLANZAPINE 10 MG TAB PO ONE (23:00)
[2017-08-04] MEDS ORDERED: ESCITALOPRAM OXALATE 10 MG TAB PO ONE (23:00)
[2017-08-04 23:16] VITALS: BP 115/72; PULSE 98; TEMP 37.2; O2SAT 93
[2017-08-04] MEDS: LACTATED RINGER'S 1000ML 1,000 ML IV SCH (23:25)
[2017-08-04 23:45] VITALS: Ht 203.2 cm; Wt 81.1 kg
[2017-08-05] MEDS: CIPROFLOXACIN / D5W 400 MG in PREMIXED IN D5W 200 ML IV SCH ×2 (00:24→12:24)
[2017-08-05] MEDS: METRONIDAZOLE / NSS 500 MG in PREMIXED NSS 100 ML IV SCH ×3 (05:38→22:49)
[2017-08-05 07:53] VITALS: BP 90/56; PULSE 70; TEMP 36.8; O2SAT 95
[2017-08-05] MEDS ORDERED: NURSING VERBAL MED ORDER ONE (08:00)
[2017-08-05] MEDS: HYDROmorphone INJ 0.5 MG/0.5 ML SYR IV PRN ×3 (08:03→23:48)
[2017-08-05] MEDS ORDERED: ESCITALOPRAM OXALATE 10 MG TAB PO SCH (09:00)
[2017-08-05] MEDS ORDERED: OLANZAPINE 10 MG TAB PO SCH (09:00)
[2017-08-05 09:08] LABS: HEMATOCRIT 33.6 % (42-52); MEAN CELL VOLUME 93.3 fL (80-100); MEAN CORPUSCULAR HEMOGLOBIN 30.6 pg (25-34); MEAN CORPUSCULAR HGB CONC 32.7 g/dl (32-36); MEAN PLATELET VOLUME 7.7 fL (7.4-10.4); PLATELET COUNT 465 K/uL (130-400); RED CELL DISTRIBUTION WIDTH CV 16.8 % (11.5-14.5); RED CELL DISTRIBUTION WIDTH SD 57.4 fL (36.4-46.3); WHITE BLOOD COUNT 9.67 K/uL (4.8-10.8)
--- NOTE | 2017-08-05 09:46 | Surgery Consultation ---
Consultation Date of Consultation: Aug 05, 2017. Attending Physician: Vandana Witt M.D. History of Present Illness pt with known history of multiple saloni-rectal abcesses. about 3 days ago he started to feel the pain again. his last I&D was approx 1 year ago according to him. it has now started to self drain and feels much better. he is currently seeing a colorectal surgeon and is scheduled for an MRI in the near future to evaluate the etiology of the recurrent abcesses. Past Medical/Surgical History Medical Problems: (1) Anemia Status: Acute (2) Elevated platelet count Status: Acute (3) Hypokalemia Status: Acute (4) Noncompliance with medication regimen Status: Acute (5) Perianal abscess Status: Acute (6) Perianal abscess Status: Acute (7) Perirectal abscess Permanent Comment: hx of recurrent Status: Chronic (8) Schizophrenia Status: Acute Family History FH: breast cancer MOTHER Social History Smoking Status: Current Every Day Smoker Alcohol Use: none Drug Use: none Marital Status: single Allergies Coded Allergies: Penicillins (Verified Allergy, Unknown, A CHILD, HAD MEFOXIN IN 2008 WITHOUT PROBLEM, 08/04/17) Home Medications Scheduled Escitalopram (Lexapro), 10 MG PO DAILY Olanzapine (Zyprexa), 10 MG PO DAILY Current Inpatient Medications Current Inpatient Medications Medications (Trade) Dose Ordered Sig/Danette Route Start Time Stop Time Status Last Admin Dose Admin Ioversol (Optiray 320) 111 ml UD PRN IV 08/04/17 19:45 08/08/17 19:44 Lactated Ringer's 1,000 ml @ 100 mls/hr Q10H IV 08/04/17 22:00 09/03/17 21:59 08/04/17 23:25 100 MLS/HR Ciprofloxacin/ Dextrose 400 mg/ Prmx 200 ml @ 100 mls/hr Q12H IV 08/05/17 00:00 08/15/17 00:00 08/05/17 00:24 100 MLS/HR Metronidazole 500 mg/Prmx 100 ml @ 100 mls/hr Q8H IV 08/05/17 06:00 08/15/17 05:59 08/05/17 05:38 100 MLS/HR Hydromorphone HCl (Dilaudid Inj) 0.5 mg Q6 PRN IV 08/04/17 22:00 08/18/17 21:59 08/05/17 08:03 0.5 MG Acetaminophen (Tylenol Tab) 650 mg Q4H PRN PO 08/04/17 22:00 09/03/17 21:59 Al Hydrox/Mg Hydrox/Simethicone (Maalox Max Susp) 15 ml Q4H PRN PO 08/04/17 22:00 09/03/17 21:59 Magnesium Hydroxide (Milk Of Magnesia Susp) 30 ml Q6H PRN PO 08/04/17 22:00 09/03/17 21:59 Polyethylene (Miralax Powder Packet) 17 gm DAILY PRN PO 08/04/17 22:00 09/03/17 21:59 Ondansetron HCl (Zofran Inj) 4 mg Q6H PRN IV 08/04/17 22:00 09/03/17 21:59 Escitalopram Oxalate (Lexapro Tab) 10 mg DAILY PO 08/05/17 09:00 09/04/17 08:59 Olanzapine (Zyprexa Tab) 10 mg DAILY PO 08/05/17 09:00 09/04/17 08:59 Lorazepam (Ativan Inj) 0.5 mg Q6 PRN IV 08/04/17 22:00 09/03/17 21:59 Review of Systems Constitutional: + problem reported (rectal pain/drainage) Physical Exam Date Time Temp Pulse Resp B/P (MAP) Pulse Ox O2 Delivery O2 Flow Rate FiO2 08/05/17 07:53 36.8 70 16 90/56 (67) 95 Room Air 08/04/17 23:45 Room Air 08/04/17 23:45 Room Air 08/04/17 23:16 37.2 98 16 115/72 (86) 93 Room Air 08/04/17 22:59 105 18 106/57 97 08/04/17 22:18 105 18 106/57 97 Room Air 08/04/17 20:20 109 18 130/76 95 Room Air 08/04/17 18:43 36.5 138 16 123/82 99 Room Air General Appearance: no apparent distress Head: normocephalic, atraumatic, + pertinent finding (poor dentition) Eyes: PERRL, EOMI ENT: hearing grossly normal Neck: no JVD Abdomen/GI: non tender, soft Neurologic/Psych: alert, oriented x 3 Skin: + pertinent finding (soft tissue fluid collection b/l gluteal fossa. + both sides currently draining. minimal tenderness. unable to evaluate for fistula at this time. ) Laboratory Results Last 24 Hours Test 08/04/17 20:09 08/04/17 20:14 08/04/17 22:29 08/05/17 06:21 White Blood Count 12.26 K/uL Red Blood Count 4.00 M/uL Hemoglobin 13.1 g/dL Hematocrit 37.4 % Mean Corpuscular Volume 93.5 fL Mean Corpuscular Hemoglobin 32.8 pg Mean Corpuscular Hemoglobin Concent 35.0 g/dl Platelet Count 554 K/uL Mean Platelet Volume 8.2 fL Neutrophils (%) (Auto) 66.3 % Lymphocytes (%) (Auto) 25.5 % Monocytes (%) (Auto) 5.8 % Eosinophils (%) (Auto) 1.8 % Basophils (%) (Auto) 0.2 % Neutrophils # (Auto) 8.12 K/uL Lymphocytes # (Auto) 3.13 K/uL Monocytes # (Auto) 0.71 K/uL Eosinophils # (Auto) 0.22 K/uL Basophils # (Auto) 0.03 K/uL RDW Standard Deviation 57.8 fL RDW Coefficient of Variation 16.7 % Immature Granulocyte % (Auto) 0.4 % Immature Granulocyte # (Auto) 0.05 K/uL Sodium Level 135 mmol/L Potassium Level 3.7 mmol/L Chloride Level 99 mmol/L Carbon Dioxide Level 29 mmol/L Anion Gap 7.0 mmol/L 15.0 mmol/L Blood Urea Nitrogen 6 mg/dl Creatinine 0.89 mg/dl Est Creatinine Clear Calc Drug Dose 116.2 ml/min Estimated GFR () 125.7 Estimated GFR (Non- 108.5 BUN/Creatinine Ratio 7.0 Random Glucose 84 mg/dl Calcium Level 9.1 mg/dl Total Bilirubin 0.2 mg/dl Direct Bilirubin < 0.1 mg/dl Aspartate Amino Transf (AST/SGOT) 15 U/L Alanine Aminotransferase (ALT/SGPT) 18 U/L Alkaline Phosphatase 113 U/L Total Protein 9.1 gm/dl Albumin 3.8 gm/dl Lipase 96 U/L Bedside Hemoglobin 13.6 g/dl Bedside Hematocrit 40 % Bedside Sodium 139 mEq/L Bedside Potassium 3.9 mEq/L Bedside Chloride 98 mEq/L Bedside Total CO2 31 mEq/l Bedside Blood Urea Nitrogen 5 mg/dl Bedside Creatinine 0.9 mg/dl Bedside Glucose (other) 91 mg/dl Bedside Ionized Calcium (Marianna) 1.13 mmol/l Prothrombin Time 10.7 SECONDS Prothromb Time International Ratio 1.0 Lactic Acid Level 1.1 mmol/L Procalcitonin < 0.05 ng/ml Urine Color YELLOW Urine Appearance CLEAR Urine pH 5.0 Urine Specific [place] 1.036 Urine Protein NEG Urine Glucose (UA) NEG Urine Ketones NEG Urine Occult Blood NEG Urine Nitrite NEG Urine Bilirubin NEG Urine Urobilinogen NEG Urine Leukocyte Esterase NEG Test 08/05/17 09:00 08/05/17 09:01 White Blood Count 9.67 K/uL Red Blood Count 3.60 M/uL Hemoglobin 11.0 g/dL Hematocrit 33.6 % Mean Corpuscular Volume 93.3 fL Mean Corpuscular Hemoglobin 30.6 pg Mean Corpuscular Hemoglobin Concent 32.7 g/dl RDW Standard Deviation 57.4 fL RDW Coefficient of Variation 16.8 % Platelet Count 465 K/uL Mean Platelet Volume 7.7 fL Lactic Acid Level 0.5 mmol/L Assessment & Plan recurrent saloni-rectal abcess. recommend I&D of the abcesses in the OR with sedation with packing as well as IV antibiotics pt is currently refusing/will not consent to surgery. He is alert/oriented. He wants to wait and obtain his MRI as scheduled and f/u with his rectal surgeon I discussed I still rec I&D and then he can still f/u with his surgeon. I discussed the risks of not doing the drainage. He is feeling much better now that the abcesses are self draining and he will not consent to surgery. I will d/w primary team.
[2017-08-05 09:47] LABS: CALCIUM 8.3 mg/dl (8.5-10.1); CREATININE 0.74 mg/dl (0.60-1.40); POTASSIUM 4.1 mmol/L (3.5-5.1)
[2017-08-05] MEDS: LACTATED RINGER'S 1000ML 1,000 ML IV SCH ×2 (12:24→23:59)
[2017-08-05 15:44] VITALS: BP 116/73; PULSE 79; TEMP 36.8; O2SAT 96
--- NOTE | 2017-08-05 18:45 | Progress Note ---
Medicine Progress Note Date & Time of Visit: Aug 05, 2017 at 18:26. Subjective Pt was seen and examined Lying in bed with no distress Pt said that pain improve in his gluteal area Denies any chest pain, palpitation, dizziness and SOB Objective Last 8 Hrs Date Time Temp Pulse Resp B/P (MAP) Pulse Ox O2 Delivery O2 Flow Rate FiO2 08/05/17 15:44 36.8 79 16 116/73 (87) 96 Room Air 08/05/17 15:40 Room Air Physical Exam: General- No acute distress Head- atraumatic Eyes- PERRL, EOMI ENT- oropharynx clear Neck- supple, no JVD Lungs- clear to auscultation Heart- regular rhythm Abdomen- normal bowel sounds, soft Extremities- no pretibial edema Neuro- alert, oriented x 3; PERRL Skin- Bilateral collection gluteal fossa, draining in both side with mild tenderness Laboratory Results: Last 24 Hours Test 08/04/17 20:09 08/04/17 20:14 08/04/17 22:29 08/05/17 06:21 White Blood Count 12.26 K/uL Red Blood Count 4.00 M/uL Hemoglobin 13.1 g/dL Hematocrit 37.4 % Mean Corpuscular Volume 93.5 fL Mean Corpuscular Hemoglobin 32.8 pg Mean Corpuscular Hemoglobin Concent 35.0 g/dl Platelet Count 554 K/uL Mean Platelet Volume 8.2 fL Neutrophils (%) (Auto) 66.3 % Lymphocytes (%) (Auto) 25.5 % Monocytes (%) (Auto) 5.8 % Eosinophils (%) (Auto) 1.8 % Basophils (%) (Auto) 0.2 % Neutrophils # (Auto) 8.12 K/uL Lymphocytes # (Auto) 3.13 K/uL Monocytes # (Auto) 0.71 K/uL Eosinophils # (Auto) 0.22 K/uL Basophils # (Auto) 0.03 K/uL RDW Standard Deviation 57.8 fL RDW Coefficient of Variation 16.7 % Immature Granulocyte % (Auto) 0.4 % Immature Granulocyte # (Auto) 0.05 K/uL Sodium Level 135 mmol/L Potassium Level 3.7 mmol/L Chloride Level 99 mmol/L Carbon Dioxide Level 29 mmol/L Anion Gap 7.0 mmol/L 15.0 mmol/L Blood Urea Nitrogen 6 mg/dl Creatinine 0.89 mg/dl Est Creatinine Clear Calc Drug Dose 116.2 ml/min Estimated GFR () 125.7 Estimated GFR (Non- 108.5 BUN/Creatinine Ratio 7.0 Random Glucose 84 mg/dl Calcium Level 9.1 mg/dl Total Bilirubin 0.2 mg/dl Direct Bilirubin < 0.1 mg/dl Aspartate Amino Transf (AST/SGOT) 15 U/L Alanine Aminotransferase (ALT/SGPT) 18 U/L Alkaline Phosphatase 113 U/L Total Protein 9.1 gm/dl Albumin 3.8 gm/dl Lipase 96 U/L Bedside Hemoglobin 13.6 g/dl Bedside Hematocrit 40 % Bedside Sodium 139 mEq/L Bedside Potassium 3.9 mEq/L Bedside Chloride 98 mEq/L Bedside Total CO2 31 mEq/l Bedside Blood Urea Nitrogen 5 mg/dl Bedside Creatinine 0.9 mg/dl Bedside Glucose (other) 91 mg/dl Bedside Ionized Calcium ([place]) 1.13 mmol/l Prothrombin Time 10.7 SECONDS Prothromb Time International Ratio 1.0 Lactic Acid Level 1.1 mmol/L Procalcitonin < 0.05 ng/ml Urine Color YELLOW Urine Appearance CLEAR Urine pH 5.0 Urine Specific [place] 1.036 Urine Protein NEG Urine Glucose (UA) NEG Urine Ketones NEG Urine Occult Blood NEG Urine Nitrite NEG Urine Bilirubin NEG Urine Urobilinogen NEG Urine Leukocyte Esterase NEG Test 08/05/17 09:00 08/05/17 09:01 White Blood Count 9.67 K/uL Red Blood Count 3.60 M/uL Hemoglobin 11.0 g/dL Hematocrit 33.6 % Mean Corpuscular Volume 93.3 fL Mean Corpuscular Hemoglobin 30.6 pg Mean Corpuscular Hemoglobin Concent 32.7 g/dl RDW Standard Deviation 57.4 fL RDW Coefficient of Variation 16.8 % Platelet Count 465 K/uL Mean Platelet Volume 7.7 fL Sodium Level 136 mmol/L Potassium Level 4.1 mmol/L Chloride Level 104 mmol/L Carbon Dioxide Level 28 mmol/L Anion Gap 4.0 mmol/L Blood Urea Nitrogen 7 mg/dl Creatinine 0.74 mg/dl Est Creatinine Clear Calc Drug Dose 155.3 ml/min Estimated GFR () 135.6 Estimated GFR (Non- 117.0 BUN/Creatinine Ratio 8.8 Random Glucose 86 mg/dl Calcium Level 8.3 mg/dl Lactic Acid Level 0.5 mmol/L Date/Time Source Procedure Growth Status 08/04/17 22:29 Blood Blood Culture Pending Received 08/04/17 22:20 Blood Blood Culture Pending Received 08/04/17 22:00 Incision Site Buttock Left Gram Stain - Final Resulted 08/04/17 22:00 Wound Culture - Preliminary Group C Beta Strep Resulted Assessment & Plan PERIRECTAL ABSCESS: History of recurrent rectal cellulitis/abscess CT abd showed Cellulitis of the bilateral inferior gluteal folds with multiloculated fluid collection of the inferior left gluteal fold measuring up to 8.3 cm in greatest dimension compatible with abscess. Elevated WBC on admission, trending wnl today Surgery on board case discussed with dr. Ro Pt refused to get I&D done today. he said that his colorectal surgeon will get an MRI at the end of the month and he will wait after the MRI Explained to pt that even though that he has an MRI schedule, he will still need to get the drained Area is draining currently Discussion with patient that can lead to sepsis and if infection get worst Preliminary wound cx grew group C beta strep Blood cx pending Continue IV antibiotic with Cipro and Flagyl Continue daily wound care Monitor CBC HYPONATREMIA due to poor p.o. intake/dehydration Sodium 135 on admission stable SCHIZOAFFECTIVE DISORDER continue outpatient meds of Zyprexa: continue SSRI TOBACCO ABUSE DISORDER: Smoking cessation counseling On nicotine patch CODE STATUS: Full code DVT prophylaxis: SCD and teds for possible I&D DISPOSITION Expected to be discharged home when medically stable Medicine follow-up with Dr. Beckett Current Inpatient Medications: Current Inpatient Medications Medications (Trade) Dose Ordered Sig/Danette Route Start Time Stop Time Status Last Admin Dose Admin Ioversol (Optiray 320) 111 ml UD PRN IV 08/04/17 19:45 08/08/17 19:44 Lactated Ringer's 1,000 ml @ 100 mls/hr Q10H IV 08/04/17 22:00 09/03/17 21:59 08/05/17 12:24 100 MLS/HR Ciprofloxacin/ Dextrose 400 mg/ Prmx 200 ml @ 100 mls/hr Q12H IV 08/05/17 00:00 08/15/17 00:00 08/05/17 12:24 100 MLS/HR Metronidazole 500 mg/Prmx 100 ml @ 100 mls/hr Q8H IV 08/05/17 06:00 08/15/17 05:59 08/05/17 14:41 100 MLS/HR Hydromorphone HCl (Dilaudid Inj) 0.5 mg Q6 PRN IV 08/04/17 22:00 08/18/17 21:59 08/05/17 17:19 0.5 MG Acetaminophen (Tylenol Tab) 650 mg Q4H PRN PO 08/04/17 22:00 09/03/17 21:59 Al Hydrox/Mg Hydrox/Simethicone (Maalox Max Susp) 15 ml Q4H PRN PO 08/04/17 22:00 09/03/17 21:59 Magnesium Hydroxide (Milk Of Magnesia Susp) 30 ml Q6H PRN PO 08/04/17 22:00 09/03/17 21:59 Polyethylene (Miralax Powder Packet) 17 gm DAILY PRN PO 08/04/17 22:00 09/03/17 21:59 Ondansetron HCl (Zofran Inj) 4 mg Q6H PRN IV 08/04/17 22:00 09/03/17 21:59 Escitalopram Oxalate (Lexapro Tab) 10 mg DAILY PO 08/05/17 09:00 09/04/17 08:59 Olanzapine (Zyprexa Tab) 10 mg DAILY PO 08/05/17 09:00 09/04/17 08:59 Lorazepam (Ativan Inj) 0.5 mg Q6 PRN IV 08/04/17 22:00 09/03/17 21:59
[2017-08-05] MEDS: CEFTRIAXONE SOD INJ 1 GM in DEXTROSE 5% ADD-VANTAGE 50ML 50 ML IV SCH (21:58)
[2017-08-05 23:18] VITALS: BP 129/82; PULSE 80; TEMP 36.9; O2SAT 99
[2017-08-06] MEDS: METRONIDAZOLE / NSS 500 MG in PREMIXED NSS 100 ML IV SCH ×3 (05:44→21:57)
[2017-08-06 06:55] LABS: HEMATOCRIT 31.6 % (42-52); HEMOGLOBIN 10.8 g/dL (14.0-18.0); MEAN CELL VOLUME 93.5 fL (80-100); MEAN CORPUSCULAR HGB CONC 34.2 g/dl (32-36); PLATELET COUNT 442 K/uL (130-400); RED CELL DISTRIBUTION WIDTH CV 16.8 % (11.5-14.5); RED CELL DISTRIBUTION WIDTH SD 57.8 fL (36.4-46.3); WHITE BLOOD COUNT 7.63 K/uL (4.8-10.8)
[2017-08-06 07:12] VITALS: BP 103/70; PULSE 62; TEMP 36.6; O2SAT 95
[2017-08-06 07:12] LABS: CALCIUM 8.2 mg/dl (8.5-10.1); CREATININE 0.78 mg/dl (0.60-1.40); POTASSIUM 4.1 mmol/L (3.5-5.1)
[2017-08-06] MEDS: LACTATED RINGER'S 1000ML 1,000 ML IV SCH ×2 (09:31→23:33)
[2017-08-06] MEDS ORDERED: NURSING VERBAL MED ORDER ONE (12:45)
[2017-08-06 14:51] VITALS: BP 138/78; PULSE 82; TEMP 36.8; O2SAT 97
--- NOTE | 2017-08-06 17:51 | Progress Note ---
Medicine Progress Note Date & Time of Visit: Aug 06, 2017 at 17:27. Subjective Pt was seen and examined Lying in bed with no distress Continue refused I&D procedure He also refused wound care treatment and dressing Continue to have drainage in the buttock area. Denies any chest pain, palpitation, dizziness, fever and SOB Objective Last 8 Hrs Date Time Temp Pulse Resp B/P (MAP) Pulse Ox O2 Delivery O2 Flow Rate FiO2 08/06/17 14:51 36.8 82 18 138/78 (98) 97 Room Air Physical Exam: General- No acute distress Head- atraumatic Eyes- PERRL, EOMI ENT- oropharynx clear Neck- supple, no JVD Lungs- clear to auscultation Heart- regular rhythm Abdomen- normal bowel sounds, soft Extremities- no pretibial edema Neuro- alert, oriented x 3; PERRL Skin- Bilateral collection gluteal fossa, draining in both side with mild tenderness Laboratory Results: Last 24 Hours Test 08/06/17 06:18 White Blood Count 7.63 K/uL Red Blood Count 3.38 M/uL Hemoglobin 10.8 g/dL Hematocrit 31.6 % Mean Corpuscular Volume 93.5 fL Mean Corpuscular Hemoglobin 32.0 pg Mean Corpuscular Hemoglobin Concent 34.2 g/dl RDW Standard Deviation 57.8 fL RDW Coefficient of Variation 16.8 % Platelet Count 442 K/uL Mean Platelet Volume 8.0 fL Sodium Level 137 mmol/L Potassium Level 4.1 mmol/L Chloride Level 104 mmol/L Carbon Dioxide Level 28 mmol/L Anion Gap 5.0 mmol/L Blood Urea Nitrogen 11 mg/dl Creatinine 0.78 mg/dl Est Creatinine Clear Calc Drug Dose 147.3 ml/min Estimated GFR () 132.7 Estimated GFR (Non- 114.5 BUN/Creatinine Ratio 14.2 Random Glucose 85 mg/dl Calcium Level 8.2 mg/dl Assessment & Plan PERIRECTAL ABSCESS: History of recurrent rectal cellulitis/abscess CT abd showed Cellulitis of the bilateral inferior gluteal folds with multiloculated fluid collection of the inferior left gluteal fold measuring up to 8.3 cm in greatest dimension compatible with abscess. Elevated WBC on admission, trending wnl today Surgery on board case discussed with dr. Ro Pt refused to get I&D done today. he said that his colorectal surgeon will get an MRI at the end of the month and he will wait after the MRI Explained to pt that even though that he has an MRI schedule, he will still need to get the drained Area is draining currently Discussion with patient that can lead to sepsis and if infection get worst Preliminary wound cx grew group C beta strep Blood cx pending Continue IV antibiotic with Cipro and Flagyl Continue daily wound care Monitor CBC 08/06 Area continue to drain I again discussed with pt that he will need to get I&D to drain it Pt continue refusing I&D Abx changed to rocephin, continue flagyl Cipro was d/c ID consult-pending HYPONATREMIA due to poor p.o. intake/dehydration Sodium 135 on admission stable SCHIZOAFFECTIVE DISORDER continue outpatient meds of Zyprexa: continue SSRI TOBACCO ABUSE DISORDER: Smoking cessation counseling On nicotine patch CODE STATUS: Full code DVT prophylaxis: SCD and teds for possible I&D DISPOSITION Expected to be discharged home when medically stable Medicine follow-up with Dr. Beckett Current Inpatient Medications: Current Inpatient Medications Medications (Trade) Dose Ordered Sig/Danette Route Start Time Stop Time Status Last Admin Dose Admin Ioversol (Optiray 320) 111 ml UD PRN IV 08/04/17 19:45 08/08/17 19:44 Lactated Ringer's 1,000 ml @ 100 mls/hr Q10H IV 08/04/17 22:00 09/03/17 21:59 08/06/17 09:31 100 MLS/HR Metronidazole 500 mg/Prmx 100 ml @ 100 mls/hr Q8H IV 08/05/17 06:00 08/15/17 05:59 08/06/17 14:09 100 MLS/HR Hydromorphone HCl (Dilaudid Inj) 0.5 mg Q6 PRN IV 08/04/17 22:00 08/18/17 21:59 08/05/17 23:48 0.5 MG Acetaminophen (Tylenol Tab) 650 mg Q4H PRN PO 08/04/17 22:00 09/03/17 21:59 Al Hydrox/Mg Hydrox/Simethicone (Maalox Max Susp) 15 ml Q4H PRN PO 08/04/17 22:00 09/03/17 21:59 Magnesium Hydroxide (Milk Of Magnesia Susp) 30 ml Q6H PRN PO 08/04/17 22:00 09/03/17 21:59 Polyethylene (Miralax Powder Packet) 17 gm DAILY PRN PO 08/04/17 22:00 09/03/17 21:59 Ondansetron HCl (Zofran Inj) 4 mg Q6H PRN IV 08/04/17 22:00 09/03/17 21:59 Lorazepam (Ativan Inj) 0.5 mg Q6 PRN IV 08/04/17 22:00 09/03/17 21:59 Ceftriaxone Sodium 1 gm/ Dextrose 50 ml @ 100 mls/hr Q24H IV 08/05/17 22:00 08/15/17 21:14 08/05/17 21:58 100 MLS/HR Olanzapine (Zyprexa Tab) 10 mg HS PO 08/06/17 21:00 09/05/17 20:59 Escitalopram Oxalate (Lexapro Tab) 10 mg HS PO 08/06/17 21:00 09/05/17 20:59
[2017-08-06] MEDS: OLANZAPINE 10 MG TAB PO SCH (21:18)
[2017-08-06] MEDS: ESCITALOPRAM OXALATE 10 MG TAB PO SCH (21:18)
[2017-08-06] MEDS: CEFTRIAXONE SOD INJ 1 GM in DEXTROSE 5% ADD-VANTAGE 50ML 50 ML IV SCH (21:20)
[2017-08-06 23:06] VITALS: BP 121/77; PULSE 84; TEMP 36.8; O2SAT 96
[2017-08-07] MEDS: METRONIDAZOLE / NSS 500 MG in PREMIXED NSS 100 ML IV SCH ×3 (06:03→21:30)
[2017-08-07] MEDS: LACTATED RINGER'S 1000ML 1,000 ML IV SCH (06:03)
[2017-08-07 06:15] LABS: HEMATOCRIT 33.2 % (42-52); HEMOGLOBIN 10.8 g/dL (14.0-18.0); MEAN CELL VOLUME 93.8 fL (80-100); MEAN CORPUSCULAR HEMOGLOBIN 30.5 pg (25-34); MEAN CORPUSCULAR HGB CONC 32.5 g/dl (32-36); MEAN PLATELET VOLUME 8.2 fL (7.4-10.4); PLATELET COUNT 525 K/uL (130-400); RED CELL DISTRIBUTION WIDTH CV 16.4 % (11.5-14.5); RED CELL DISTRIBUTION WIDTH SD 56.7 fL (36.4-46.3)
[2017-08-07 06:33] LABS: CALCIUM 8.5 mg/dl (8.5-10.1); CREATININE 0.75 mg/dl (0.60-1.40); POTASSIUM 3.8 mmol/L (3.5-5.1)
[2017-08-07 07:17] VITALS: BP 105/68; PULSE 71; TEMP 36.9; O2SAT 95
[2017-08-07] MEDS ORDERED: NURSING VERBAL MED ORDER ONE (10:30)
[2017-08-07 14:53] VITALS: BP 103/63; PULSE 73; TEMP 36.5; O2SAT 98
--- NOTE | 2017-08-07 15:17 | Medical Consult ---
Consultation Date of Consultation: Aug 07, 2017. Attending Physician: Vandana Witt M.D. Reason for Consultation: Perirectal abscess History of Present Illness 37-year-old male with history of schizophrenia, heavy tobacco use, hypertension , who has suffered from recurrent perirectal abscesses for more than 1 year. He has had several incision and drainages, and treatment with several courses of antibiotics. He has been followed by surgery from [facility], and reportedly has plans for follow-up MRI scan to side need for further surgical intervention later this month. Over the past 1 week, patient has noted progressively worsening pain and drainage, and eventually came to the emergency department was admitted for further management. He was found to have evidence of recurrent abscesses which have been draining on the room, and cultures have now grown group C Streptococcus. Patient currently being treated with IV ceftriaxone. Notes that pain has decrease significantly since admission. Has remained afebrile. Tolerating antibiotic without apparent difficulty. Past Medical/Surgical History Medical Problems: (1) Anemia Status: Acute (2) Elevated platelet count Status: Acute (3) Hypokalemia Status: Acute (4) Noncompliance with medication regimen Status: Acute (5) Perianal abscess Status: Acute (6) Perianal abscess Status: Acute (7) Perirectal abscess Permanent Comment: hx of recurrent Status: Chronic (8) Schizophrenia Status: Acute Medical Problems: (1) Depression (2) Paranoid schizophrenia (3) Perirectal abscess (4) Tobacco use disorder (5) Tobacco Use Disorder Family History FH: breast cancer MOTHER Social History Smoking Status: Current Every Day Smoker Alcohol Use: none Drug Use: none Marital Status: single Allergies Coded Allergies: Penicillins (Verified Allergy, Unknown, A CHILD, HAD MEFOXIN IN 2008 WITHOUT PROBLEM, 08/04/17) Current Inpatient Medications Current Inpatient Medications Medications (Trade) Dose Ordered Sig/Danette Route Start Time Stop Time Status Last Admin Dose Admin Ioversol (Optiray 320) 111 ml UD PRN IV 08/04/17 19:45 08/08/17 19:44 Metronidazole 500 mg/Prmx 100 ml @ 100 mls/hr Q8H IV 08/05/17 06:00 08/15/17 05:59 08/07/17 13:45 100 MLS/HR Hydromorphone HCl (Dilaudid Inj) 0.5 mg Q6 PRN IV 08/04/17 22:00 08/18/17 21:59 08/05/17 23:48 0.5 MG Acetaminophen (Tylenol Tab) 650 mg Q4H PRN PO 08/04/17 22:00 09/03/17 21:59 Al Hydrox/Mg Hydrox/Simethicone (Maalox Max Susp) 15 ml Q4H PRN PO 08/04/17 22:00 09/03/17 21:59 Magnesium Hydroxide (Milk Of Magnesia Susp) 30 ml Q6H PRN PO 08/04/17 22:00 09/03/17 21:59 Polyethylene (Miralax Powder Packet) 17 gm DAILY PRN PO 08/04/17 22:00 09/03/17 21:59 Ondansetron HCl (Zofran Inj) 4 mg Q6H PRN IV 08/04/17 22:00 09/03/17 21:59 Lorazepam (Ativan Inj) 0.5 mg Q6 PRN IV 08/04/17 22:00 09/03/17 21:59 Ceftriaxone Sodium 1 gm/ Dextrose 50 ml @ 100 mls/hr Q24H IV 08/05/17 22:00 08/15/17 21:14 08/06/17 21:20 100 MLS/HR Olanzapine (Zyprexa Tab) 10 mg HS PO 08/06/17 21:00 09/05/17 20:59 08/06/17 21:18 10 MG Escitalopram Oxalate (Lexapro Tab) 10 mg HS PO 08/06/17 21:00 09/05/17 20:59 08/06/17 21:18 10 MG Review of Systems Constitutional: + fatigue, No fever Eyes: No problem reported ENT: No problem reported Respiratory: No problem reported Cardiovascular: No problem reported Abdomen: No problem reported Genitourinary - Male: No problem reported Neurologic: No problem reported Psychiatric: No problem reported Endocrine: No problem reported Integumentary: + new/changing skin lesions Allergic / Immunologic: No problem reported Physical Exam Date Time Temp Pulse Resp B/P (MAP) Pulse Ox O2 Delivery O2 Flow Rate FiO2 08/07/17 14:53 36.5 73 18 103/63 (76) 98 Room Air 08/07/17 07:55 Room Air 08/07/17 07:17 36.9 71 16 105/68 (80) 95 Room Air 08/06/17 23:45 Room Air 08/06/17 23:06 36.8 84 16 121/77 (92) 96 Room Air 08/06/17 17:06 Room Air General Appearance: WD/WN, no apparent distress Head: normocephalic, atraumatic Eyes: normal inspection, EOMI, sclerae normal ENT: hearing grossly normal, pharynx normal Neck: supple, no adenopathy, thyroid normal, trachea midline Respiratory/Chest: chest non-tender, lungs clear, normal breath sounds, no respiratory distress Cardiovascular: regular rate, rhythm, no gallop, no murmur Abdomen/GI: normal bowel sounds, non tender, soft, no organomegaly Back: normal inspection, no CVA tenderness Extremities/Musculoskelatal: normal inspection, no calf tenderness, normal capillary refill, non-tender Neurologic/Psych: alert, oriented x 3 Skin: normal color, no rash, + pertinent finding (Bilateral draining wounds perirectal area) Laboratory Results RUN DATE: 08/07/17 [facility] PAGE 1 RUN TIME: 936 Specimen Inquiry PATIENT: KIERA STANTON LOC: W U # : [id number] AGE/SX: 37/M ROOM: [facility] REG : 08/04/[address]: Vandana Witt M.D. : 1980 BED: 2 DIS : STATUS: ADM IN TLOC: SPEC #: [id number] JANETTE: 08/04/17 STATUS: COMP REQ #: [id number] RECD: 08/04/[address]: Steve Sullivan MD SOURCE: INC.SITE ENTR: 08/04/[address]: Jennifer Edwards MD SPDESC: Carter Silver M.D. Prince, Edward R., M.D. ORDERED: SURF WND CU/SMR COMMENTS: Has Specimen Been Obtained/Collected? Y Procedure Result Verified Site GRAM STAIN Final 08/05/17 RESULT RARE WBCs SEEN RARE GRAM POSITIVE COCCI RARE GRAM POSITIVE BACILLI SURFACE WOUND CULTURE Final 08/07/17 Organism 1 GROUP C BETA STREP QUANITY MODERATE SENS SENSITIVITY TO FOLLOW +MIXWOUND PLUS LOW COUNTS OF PROBABLE SKIN TUTU 1. GROUP C BETA STREP Target Route Dose RX AB Cost M.I.C. IQ ------ ----- ------ -- ------ -------- - ------ AMPICILLIN S <=0.06 CEFOTAXIME S <=0.25 CEFTRIAXONE S <=0.25 CEFEPIME S <=0.25 CHLORAMPHENICOL S 4 VANCOMYCIN S 1 PENICILLIN S <=0.03 ERYTHROMYCIN I 0.5 CLINDAMYCIN R >0.5 AZITHROMYCIN R 2 S = SENSITIVE I = INTERMEDIATE R = RESISTANT END OF REPORT Last 24 Hours Test 08/07/17 05:40 White Blood Count 9.70 K/uL Red Blood Count 3.54 M/uL Hemoglobin 10.8 g/dL Hematocrit 33.2 % Mean Corpuscular Volume 93.8 fL Mean Corpuscular Hemoglobin 30.5 pg Mean Corpuscular Hemoglobin Concent 32.5 g/dl RDW Standard Deviation 56.7 fL RDW Coefficient of Variation 16.4 % Platelet Count 525 K/uL Mean Platelet Volume 8.2 fL Sodium Level 138 mmol/L Potassium Level 3.8 mmol/L Chloride Level 106 mmol/L Carbon Dioxide Level 27 mmol/L Anion Gap 5.0 mmol/L Blood Urea Nitrogen 7 mg/dl Creatinine 0.75 mg/dl Est Creatinine Clear Calc Drug Dose 153.2 ml/min Estimated GFR () 134.9 Estimated GFR (Non- 116.4 BUN/Creatinine Ratio 9.6 Random Glucose 93 mg/dl Calcium Level 8.5 mg/dl Patient Name: KIERA STANTON Unit Number: [id number] Dictated: 08/04/172052 Transcribed: 08/04/172052 ARLINE Printed Date/Time: [~ rep prt dt]/[~ rep prt tm] [~ rep ct labl] - [~ rep ct ivnm] [facility] Radiology [place] [address] Dictated: 08/04/172052 Transcribed: 08/04/172052 ARLINE Printed Date/Time: [~ rep prt dt]/[~ rep prt tm] [~ rep ct labl] - [~ rep ct ivnm] PELVIS W/IV CONT ONLY (CT) HISTORY: 37 years-old Male follow-up study in a patient with perirectal abscess. COMPARISON: CT pelvis 12/31/2016 TECHNIQUE: Multiple axial CT images of the pelvis were obtained following the intravenous administration of 93 mL Optiray 320. A dose lowering technique was used consistent with the principals of ANIYAH. FINDINGS: Mild atherosclerosis of the distal aorta and iliac bifurcation without aneurysm identified. No bulky intrapelvic adenopathy. Enlarged inguinal chain lymph nodes are present bilaterally measuring up to 1.3 cm in short axis, likely reactive. Urinary bladder, prostate, sigmoid colon and appendix appear unremarkable. No bowel obstruction identified. Fluid-filled terminal ileum is likely physiologic. Imaged inferior right hepatic lobe is unremarkable. No ascites or pneumoperitoneum. There is skin thickening with stranding of the subcutaneous tissues involving the bilateral inferior gluteal folds which appears similar from comparison study compatible with cellulitis. The previously described local fluid collections on the right are not clearly identified on today's study. Multiloculated fluid collection involving the posterior medial aspect of the inferior left gluteal fold measures up to 2.0 x 8.3 x 4.8 cm nicely seen on image 306 series 3. No definite connection to the adjacent anus. No subcutaneous emphysema identified to suggest fasciitis. The bones appear unremarkable. IMPRESSION: 1. Cellulitis of the bilateral inferior gluteal folds with multiloculated fluid collection of the inferior left gluteal fold measuring up to 8.3 cm in greatest dimension compatible with abscess. No definite fistulous connection to the anus identified on these images to suggest perianal fistula. 2. No evidence of perirectal abscess. 3. Bilateral inguinal adenopathy, likely reactive. The above report was generated using voice recognition software. It may contain grammatical, syntax or spelling errors. Electronically signed by: Jim Bishop M.D. 08/04/2017 9:01 PM Dictated Date/Time: 08/04/2017 8:53 PM The status of this report is Signed. Draft = Not yet reviewed or approved by Radiologist. Signed = Reviewed and approved by Radiologist. <AttendingPhy></AttendingPhy> <FamilyPhy>Gopal Beckett M.D.</FamilyPhy> < PrimaryPhy>Gopal Beckett M.D.</PrimaryPhy> <UnitNumber>[id number]</ UnitNumber> <VisitNumber>[id number]</VisitNumber> <PatientName>KIERA STANTON</PatientName> <DateOfBirth>1980</DateOfBirth> <Location>C[facility]</Location > <ServiceDate>08/04/17</ServiceDate> <MNE>ESINDI</MNE> <OrderingPhy>Steve Sullivan MD</OrderingPhy> <OrderingPhyMNE>f rep ord dr fairchild</OrderingPhyMNE> < DictatingPhyMNE>f rep dict dr fairchild</DictatingPhyMNE> <CCListMNE>f rep ct mne</ CCListMNE> <AdmittingPhyMNE>f pt admit dr fairchild</AdmittingPhyMNE> <AttendingPhyMNE >f pt attend dr fairchild</AttendingPhyMNE> <ConsultingPhyMNE>f pt consult dr fairchild</ConsultingPhyMNE> <FamilyPhyMNE>f pt fam dr fairchild</FamilyPhyMNE> <OtherPhyMNE>f pt other dr fairchild</OtherPhyMNE> < PrimaryPhyMNE>f pt prim care dr fairchild</PrimaryPhyMNE> <ReferringPhyMNE>f pt referring dr fairchild</ReferringPhyMNE> Assessment & Plan Recurrent perirectal abscess with perirectal cellulitis with positive culture for group C Streptococcus. Patient appears to be improving on ceftriaxone. Would think the patient could likely be transitioned tomorrow to oral cephalexin , likely in the range of 2 weeks. Will need further surgical evaluation MRI scanning to assess need for further surgical intervention. Will follow.
--- NOTE | 2017-08-07 17:32 | Progress Note ---
Medicine Progress Note Date & Time of Visit: Aug 07, 2017 at 17:27. Subjective Pt was seen and examined Lying in bed with no distress he said that pain seems to improve in his buttock and area continue to drain Pt continue refusing I&D Denies any fever, palpitation and SOB Objective Last 8 Hrs Date Time Temp Pulse Resp B/P (MAP) Pulse Ox O2 Delivery O2 Flow Rate FiO2 08/07/17 14:53 36.5 73 18 103/63 (76) 98 Room Air Physical Exam: General- No acute distress Head- atraumatic Eyes- PERRL, EOMI ENT- oropharynx clear Neck- supple, no JVD Lungs- clear to auscultation Heart- regular rhythm Abdomen- normal bowel sounds, soft Extremities- no pretibial edema Neuro- alert, oriented x 3; PERRL Skin- Bilateral collection gluteal fossa, draining in both side with mild tenderness Laboratory Results: Last 24 Hours Test 08/07/17 05:40 White Blood Count 9.70 K/uL Red Blood Count 3.54 M/uL Hemoglobin 10.8 g/dL Hematocrit 33.2 % Mean Corpuscular Volume 93.8 fL Mean Corpuscular Hemoglobin 30.5 pg Mean Corpuscular Hemoglobin Concent 32.5 g/dl RDW Standard Deviation 56.7 fL RDW Coefficient of Variation 16.4 % Platelet Count 525 K/uL Mean Platelet Volume 8.2 fL Sodium Level 138 mmol/L Potassium Level 3.8 mmol/L Chloride Level 106 mmol/L Carbon Dioxide Level 27 mmol/L Anion Gap 5.0 mmol/L Blood Urea Nitrogen 7 mg/dl Creatinine 0.75 mg/dl Est Creatinine Clear Calc Drug Dose 153.2 ml/min Estimated GFR () 134.9 Estimated GFR (Non- 116.4 BUN/Creatinine Ratio 9.6 Random Glucose 93 mg/dl Calcium Level 8.5 mg/dl Assessment & Plan PERIRECTAL ABSCESS: History of recurrent rectal cellulitis/abscess CT abd showed Cellulitis of the bilateral inferior gluteal folds with multiloculated fluid collection of the inferior left gluteal fold measuring up to 8.3 cm in greatest dimension compatible with abscess. Elevated WBC on admission, trending wnl today Surgery on board case discussed with dr. Ro Pt refused to get I&D done today. he said that his colorectal surgeon will get an MRI at the end of the month and he will wait after the MRI Explained to pt that even though that he has an MRI schedule, he will still need to get the drained Area is draining currently Discussion with patient that can lead to sepsis and if infection get worst Preliminary wound cx grew group C beta strep Blood cx pending Continue IV antibiotic with Cipro and Flagyl Continue daily wound care Monitor CBC 08/07 Area continue to drain I again discussed with pt that he will need to get I&D to drain it Pt continue refusing I&D Continue IV rocephin Would cx grew group C beta strep ID on board and recommended to transition to oral cephalexin tomorrow to complete 2 weeks course HYPONATREMIA due to poor p.o. intake/dehydration Sodium 135 on admission Na 138 today Resolved SCHIZOAFFECTIVE DISORDER continue outpatient meds of Zyprexa: continue SSRI TOBACCO ABUSE DISORDER: Smoking cessation counseling On nicotine patch CODE STATUS: Full code DVT prophylaxis: SCD and teds for possible I&D DISPOSITION Possible discharge home tomorrow Medicine follow-up with Dr. Beckett Current Inpatient Medications: Current Inpatient Medications Medications (Trade) Dose Ordered Sig/Danette Route Start Time Stop Time Status Last Admin Dose Admin Ioversol (Optiray 320) 111 ml UD PRN IV 08/04/17 19:45 08/08/17 19:44 Metronidazole 500 mg/Prmx 100 ml @ 100 mls/hr Q8H IV 08/05/17 06:00 08/15/17 05:59 08/07/17 13:45 100 MLS/HR Hydromorphone HCl (Dilaudid Inj) 0.5 mg Q6 PRN IV 08/04/17 22:00 08/18/17 21:59 08/05/17 23:48 0.5 MG Acetaminophen (Tylenol Tab) 650 mg Q4H PRN PO 08/04/17 22:00 09/03/17 21:59 Al Hydrox/Mg Hydrox/Simethicone (Maalox Max Susp) 15 ml Q4H PRN PO 08/04/17 22:00 09/03/17 21:59 Magnesium Hydroxide (Milk Of Magnesia Susp) 30 ml Q6H PRN PO 08/04/17 22:00 09/03/17 21:59 Polyethylene (Miralax Powder Packet) 17 gm DAILY PRN PO 08/04/17 22:00 09/03/17 21:59 Ondansetron HCl (Zofran Inj) 4 mg Q6H PRN IV 08/04/17 22:00 09/03/17 21:59 Lorazepam (Ativan Inj) 0.5 mg Q6 PRN IV 08/04/17 22:00 09/03/17 21:59 Ceftriaxone Sodium 1 gm/ Dextrose 50 ml @ 100 mls/hr Q24H IV 08/05/17 22:00 08/15/17 21:14 08/06/17 21:20 100 MLS/HR Olanzapine (Zyprexa Tab) 10 mg HS PO 08/06/17 21:00 09/05/17 20:59 08/06/17 21:18 10 MG Escitalopram Oxalate (Lexapro Tab) 10 mg HS PO 08/06/17 21:00 09/05/17 20:59 08/06/17 21:18 10 MG
[2017-08-07] MEDS: OLANZAPINE 10 MG TAB PO SCH (21:30)
[2017-08-07] MEDS: CEFTRIAXONE SOD INJ 1 GM in DEXTROSE 5% ADD-VANTAGE 50ML 50 ML IV SCH (21:30)
[2017-08-07] MEDS: ESCITALOPRAM OXALATE 10 MG TAB PO SCH (21:30)
[2017-08-07 23:14] VITALS: BP 106/64; PULSE 80; TEMP 36.8; O2SAT 96
[2017-08-08] MEDS: METRONIDAZOLE / NSS 500 MG in PREMIXED NSS 100 ML IV SCH (05:53)
[2017-08-08 07:17] VITALS: BP 107/71; PULSE 60; TEMP 36.8; O2SAT 95
[2017-08-08 12:51] VITALS: BP 107/71; PULSE 60; TEMP 36.8; O2SAT 95
[2017-08-08] MEDS ORDERED: CEFTRIAXONE SOD INJ 1 GM in DEXTROSE 5% ADD-VANTAGE 50ML 50 ML IV SCH (14:00)
[2017-08-08] MEDS ORDERED: CEPH-571 PO (14:03)
--- NOTE | 2017-08-08 14:09 | Discharge Instructions ---
Discharge Instructions Date of Service Aug 08, 2017. Admission Reason for Admission: Cellulitis,Gluteal, Perirectal Abscess Discharge Discharge Diagnosis / Problem: PERIRECTAL ABSCESS, HYPONATREMIA Discharge Goals Goal(s): Decrease discomfort, Improve function, Improve disease control Activity Recommendations Activity Limitations: resume your previous activity . Instructions / Follow-Up Instructions / Follow-Up Follow up with primary care provider dr. Do (Dr. Beckett colleague) on @ 11:05 AM Follow with with your surgeon for Incision and drainage (Which patient refused to get done here) Follow up with wound care clinic Continue daily wound care Complete the course of antibiotic Keflex for 2 weeks Seek medical attention if you develop any fever or if perianal area worsening. Current Hospital Diet Patient's current hospital diet: Regular Diet Discharge Diet Recommended Diet: Regular Diet Pending Studies Studies pending at discharge: no Medical Emergencies . Who to Call and When: Medical Emergencies: If at any time you feel your situation is an emergency, please call 911 immediately. . Non-Emergent Contact Non-Emergency issues call your: Primary Care Provider Call Non-Emergent contact if: you have a fever, your pain is worsening, wound has increased drainage, wound has increased pain, you have any medication questions . . "Provider Documentation" section prepared by Vandana Witt. .
--- NOTE | 2017-08-08 14:28 | Progress Note ---
Medicine Progress Note Date & Time of Visit: Aug 08, 2017 at 14:12. Subjective Pt was seen and examined Lying in bed with no distress Pt said that pain is improved I again advised pt to get I&D done for the perianal abscess I told him when I touch the area, i can feel collection on it When i applied pressure to it, there was pus coming out I told pt that let me try to apply more pressure on the perianal abscess to get as much as pus out since he does not want to get the I&D Pt said that area is tender and does not want any pressure to apply around the area of his anal. I again told patient that i can let the surgeon to come to evaluate it again for I&D Pt continue to refuse I&D He understands that can lead to sepsis and even . Denies any fever, chill and SOB Objective Last 8 Hrs Date Time Temp Pulse Resp B/P (MAP) Pulse Ox O2 Delivery O2 Flow Rate FiO2 08/08/17 12:51 36.8 60 16 95 Room Air 08/08/17 07:45 Room Air 08/08/17 07:17 36.8 60 16 107/71 (83) 95 Room Air Physical Exam: General- No acute distress Head- atraumatic Eyes- PERRL, EOMI ENT- oropharynx clear Neck- supple, no JVD Lungs- clear to auscultation Heart- regular rhythm Abdomen- normal bowel sounds, soft Extremities- no pretibial edema Neuro- alert, oriented x 3; PERRL Skin- Bilateral collection gluteal fossa, draining in both side with tenderness Assessment & Plan PERIRECTAL ABSCESS: History of recurrent rectal cellulitis/abscess CT abd showed Cellulitis of the bilateral inferior gluteal folds with multiloculated fluid collection of the inferior left gluteal fold measuring up to 8.3 cm in greatest dimension compatible with abscess. Elevated WBC on admission, trending wnl today Surgery on board case discussed with dr. Ro Pt refused to get I&D done today. he said that his colorectal surgeon will get an MRI at the end of the month and he will wait after the MRI Explained to pt that even though that he has an MRI schedule, he will still need to get the drained Area is draining currently Discussion with patient that can lead to sepsis and if infection get worst Preliminary wound cx grew group C beta strep Blood cx pending Continue IV antibiotic with Cipro and Flagyl Continue daily wound care Monitor CBC 08/08 Area continue to drain I again discussed with pt that he will need to get I&D to drain it Pt continue refusing I&D He understands the risk for not getting I&D such as sepsis and Received IV rocephin and flagyl for 4 days Would cx grew group C beta strep ID on board and recommended to transition to oral cephalexin tomorrow to complete 2 weeks course Case discussed with ID dr. Dunn today recommended Keflex 500mg qid for 2 weeks Follow up with surgery after MRI scanning to assess need for further surgical intervention. Continue daily wound care HYPONATREMIA due to poor p.o. intake/dehydration Sodium 135 on admission Na 138 today Resolved SCHIZOAFFECTIVE DISORDER continue outpatient meds of Zyprexa: continue SSRI TOBACCO ABUSE DISORDER: Smoking cessation counseling On nicotine patch CODE STATUS: Full code DVT prophylaxis: SCD and teds for possible I&D DISPOSITION Possible discharge home today Medicine follow-up with Dr. Do Consultants: ID Current Inpatient Medications: Current Inpatient Medications Medications (Trade) Dose Ordered Sig/Danette Route Start Time Stop Time Status Last Admin Dose Admin Ioversol (Optiray 320) 111 ml UD PRN IV 08/04/17 19:45 08/08/17 19:44 Hydromorphone HCl (Dilaudid Inj) 0.5 mg Q6 PRN IV 08/04/17 22:00 08/18/17 21:59 08/05/17 23:48 0.5 MG Acetaminophen (Tylenol Tab) 650 mg Q4H PRN PO 08/04/17 22:00 09/03/17 21:59 Al Hydrox/Mg Hydrox/Simethicone (Maalox Max Susp) 15 ml Q4H PRN PO 08/04/17 22:00 09/03/17 21:59 Magnesium Hydroxide (Milk Of Magnesia Susp) 30 ml Q6H PRN PO 08/04/17 22:00 09/03/17 21:59 Polyethylene (Miralax Powder Packet) 17 gm DAILY PRN PO 08/04/17 22:00 09/03/17 21:59 Ondansetron HCl (Zofran Inj) 4 mg Q6H PRN IV 08/04/17 22:00 09/03/17 21:59 Lorazepam (Ativan Inj) 0.5 mg Q6 PRN IV 08/04/17 22:00 09/03/17 21:59 Olanzapine (Zyprexa Tab) 10 mg HS PO 08/06/17 21:00 09/05/17 20:59 08/07/17 21:30 10 MG Escitalopram Oxalate (Lexapro Tab) 10 mg HS PO 08/06/17 21:00 09/05/17 20:59 08/07/17 21:30 10 MG Ceftriaxone Sodium 1 gm/ Dextrose 50 ml @ 100 mls/hr Q24H IV 08/08/17 14:00 08/15/17 13:59
--- NOTE | 2017-08-10 00:21 | Discharge Summary ---
Discharge Summary Date of Service Aug 10, 2017. Discharge Summary Admission Date: Aug 04, 2017 at 21:51 Discharge Date: Aug 08, 2017 Discharge Disposition: Home with services Principal Diagnosis: PERIRECTAL ABSCESS Secondary Diagnoses/Problems: HYPONATREMIA SCHIZOAFFECTIVE DISORDER TOBACCO ABUSE DISORDER: Procedures: PELVIS W/IV CONT ONLY (CT) HISTORY: 37 years-old Male follow-up study in a patient with perirectal abscess. COMPARISON: CT pelvis 12/31/2016 TECHNIQUE: Multiple axial CT images of the pelvis were obtained following the intravenous administration of 93 mL Optiray 320. A dose lowering technique was used consistent with the principals of ANIYAH. FINDINGS: Mild atherosclerosis of the distal aorta and iliac bifurcation without aneurysm identified. No bulky intrapelvic adenopathy. Enlarged inguinal chain lymph nodes are present bilaterally measuring up to 1.3 cm in short axis, likely reactive. Urinary bladder, prostate, sigmoid colon and appendix appear unremarkable. No bowel obstruction identified. Fluid-filled terminal ileum is likely physiologic. Imaged inferior right hepatic lobe is unremarkable. No ascites or pneumoperitoneum. There is skin thickening with stranding of the subcutaneous tissues involving the bilateral inferior gluteal folds which appears similar from comparison study compatible with cellulitis. The previously described local fluid collections on the right are not clearly identified on today's study. Multiloculated fluid collection involving the posterior medial aspect of the inferior left gluteal fold measures up to 2.0 x 8.3 x 4.8 cm nicely seen on image 306 series 3. No definite connection to the adjacent anus. No subcutaneous emphysema identified to suggest fasciitis. The bones appear unremarkable. IMPRESSION: 1. Cellulitis of the bilateral inferior gluteal folds with multiloculated fluid collection of the inferior left gluteal fold measuring up to 8.3 cm in greatest dimension compatible with abscess. No definite fistulous connection to the anus identified on these images to suggest perianal fistula. 2. No evidence of perirectal abscess. 3. Bilateral inguinal adenopathy, likely reactive. The above report was generated using voice recognition software. It may contain grammatical, syntax or spelling errors. Electronically signed by: Jim Bishop M.D. 08/04/2017 9:01 PM Dictated Date/Time: 08/04/2017 8:53 PM [~ rep ct add3]] CHEST ONE VIEW PORTABLE HISTORY: 37 years-old Male pre op preoperative exam. No acute chest complaints. COMPARISON: None available TECHNIQUE: Portable AP view of the chest FINDINGS: Cardiomediastinal and hilar silhouettes are within normal limits. There is no pneumothorax, pleural effusion, focal airspace consolidation or overt pulmonary edema. The bones of the chest appear grossly intact. IMPRESSION: No acute process. The above report was generated using voice recognition software. It may contain grammatical, syntax or spelling errors. Electronically signed by: Jim Bishop M.D. 08/04/2017 10:47 PM Dictated Date/Time: 08/04/2017 10:46 PM Consultations: ID Medication Reconciliation New Medications: Cephalexin (Keflex) 500 Mg Cap 1 CAP PO QID for 14 Days, #56 CAP Continued Medications: Escitalopram (Lexapro) 10 Mg Tab 10 MG PO DAILY, TAB Olanzapine (Zyprexa) 10 Mg Tab 10 MG PO DAILY, TAB Admission Information HPI (per Admitting provider): This is a 37-year-old male with a past medical history of schizophrenia, depression, tobacco use disorder, and recurrent perirectal abscesses who presents with perirectal pain 3 days. Patient has required multiple I&D's in the past. Over the course of the last year, patient has experienced intermittent pain and spontaneous perirectal drainage. Has plans for an MRI later this month to evaluate for surgical involvement. Three days ago, patient has had constant, sharp pressure in the perianal area with associated redness and drainage. Pain was severe enough that patient is unable to sit down. Was evaluated by PCP earlier today and sent to the ED for pain management and surgical evaluation. Denies fever, chills, lightheadedness, headache, chest pain, shortness of breath, abdominal pain, nausea, vomiting, constipation or diarrhea. Physical Exam (per Admitting): General Appearance: + mild distress, + pertinent finding (Lying on side ) Head: normocephalic, atraumatic Eyes: normal inspection, PERRL, sclerae normal ENT: normal ENT inspection, hearing grossly normal, pharynx normal Neck: supple, thyroid normal, trachea midline Respiratory/Chest: chest non-tender, lungs clear, normal breath sounds, no respiratory distress, no accessory muscle use Cardiovascular: regular rate, rhythm, no murmur, normal peripheral pulses Abdomen/GI: non tender, soft, no organomegaly Extremities/Musculoskelatal: normal inspection, no calf tenderness, no pedal edema Neurologic/Psych: no motor/sensory deficits, alert, normal mood/affect, oriented x 3 Skin: + pertinent finding (Presence of 3cm abscess on left perianal area with purulent drainage and surrounding erythema. ) Hospital Course PERIRECTAL ABSCESS: History of recurrent rectal cellulitis/abscess CT abd showed Cellulitis of the bilateral inferior gluteal folds with multiloculated fluid collection of the inferior left gluteal fold measuring up to 8.3 cm in greatest dimension compatible with abscess. Elevated WBC on admission, trending wnl today Surgery on board case discussed with dr. Ro Pt refused to get I&D done today. he said that his colorectal surgeon will get an MRI at the end of the month and he will wait after the MRI Explained to pt that even though that he has an MRI schedule, he will still need to get the drained Area is draining currently Discussion with patient that can lead to sepsis and if infection get worst Preliminary wound cx grew group C beta strep Blood cx pending Continue IV antibiotic with Cipro and Flagyl Continue daily wound care Monitor CBC 08/08 Area continue to drain I again discussed with pt that he will need to get I&D to drain it Pt continue refusing I&D He understands the risk for not getting I&D such as sepsis and Received IV rocephin and flagyl for 4 days Would cx grew group C beta strep ID on board and recommended to transition to oral cephalexin tomorrow to complete 2 weeks course Case discussed with ID dr. Dunn today recommended Keflex 500mg qid for 2 weeks Follow up with surgery after MRI scanning to assess need for further surgical intervention. Continue daily wound care HYPONATREMIA due to poor p.o. intake/dehydration Sodium 135 on admission Na 138 today Resolved SCHIZOAFFECTIVE DISORDER continue outpatient meds of Zyprexa: continue SSRI TOBACCO ABUSE DISORDER: Smoking cessation counseling On nicotine patch CODE STATUS: Full code DVT prophylaxis: SCD and teds for possible I&D DISPOSITION Possible discharge home today Medicine follow-up with Dr. Do Total time spent on discharge = 35 MINUTES This includes examination of the patient, discharge planning, medication reconciliation, and communication with other providers. Discharge Instructions Discharge Instructions Date of Service Aug 08, 2017. Admission Reason for Admission: Cellulitis,Gluteal, Perirectal Abscess Discharge Discharge Diagnosis / Problem: PERIRECTAL ABSCESS, HYPONATREMIA Discharge Goals Goal(s): Decrease discomfort, Improve function, Improve disease control Activity Recommendations Activity Limitations: resume your previous activity . Instructions / Follow-Up Instructions / Follow-Up Follow up with primary care provider dr. Do (Dr. Beckett colleague) on @ 11:05 AM Follow with with your surgeon for Incision and drainage (Which patient refused to get done here) Follow up with wound care clinic Continue daily wound care Complete the course of antibiotic Keflex for 2 weeks Seek medical attention if you develop any fever or if perianal area worsening. Current Hospital Diet Patient's current hospital diet: Regular Diet Discharge Diet Recommended Diet: Regular Diet Pending Studies Studies pending at discharge: no Medical Emergencies . Who to Call and When: Medical Emergencies: If at any time you feel your situation is an emergency, please call 911 immediately. . Non-Emergent Contact Non-Emergency issues call your: Primary Care Provider Call Non-Emergent contact if: you have a fever, your pain is worsening, wound has increased drainage, wound has increased pain, you have any medication questions . . "Provider Documentation" section prepared by Vandana Witt. . Additional Copies To Gopal Beckett M.D.
== END 2017-08-08 14:25 | disposition home or self-care (01) | DRG 394 ==
LOC: C.EDB 18:22 → C.MSW 21:51 → ENRESERV 22:04
PROVIDERS: ADMIT Hospitalist; ATTEND Internal Medicine
PROC: 0H98XZX Drainage of Buttock Skin, External Approach, Diagnostic (ICD-10-PCS; principal; 2017-08-04)
DX: K61.1 Rectal abscess (principal); L02.31 Cutaneous abscess of buttock; E87.1 Hypo-osmolality and hyponatremia; F17.200 Nicotine dependence, unspecified, uncomplicated; D72.829 Elevated white blood cell count, unspecified; F25.9 Schizoaffective disorder, unspecified

== ENCOUNTER 2017-12-20 17:31 | Emergency (ER) | payer OTHER ==
[~2017-12-20] VITALS: Ht 182.9 cm; Wt 81.6 kg
[~2017-12-20 17:31] MED LIST changes: -LEVO500T19 PO
[2017-12-20 17:34] VITALS: TEMP 36.8; Ht 182.9 cm; Wt 81.6 kg
--- NOTE | 2017-12-20 17:53 | EMERGENCY ROOM VISIT NOTE ---
History Report prepared by [place]: Rajiv Graham Under the Supervision of: Dr. Bee Kim D.O. First contact with patient: 17:42 Chief Complaint: WOUND INFECTION Stated Complaint: RECTAL ABSCESS History of Present Illness The patient is a 37 year old male who presents to the Emergency Room with complaints of constant rectal draining beginning three days ago. The patient states that he has a history of abscesses on his rectum. He notes that his abscesses typically begin by becoming swollen and painful. He notes that he has had to come to the emergency department before to have the abscesses drained. He reports that he had surgery in July,, and he states that he had some tissue from the area removed at that time. He notes that he has had constant drainage since his surgery, but he reports that the swelling has decreased. The patient states that he has a wound care nurse that sees him once a week. He notes that his nurse told him to come to his PCP because he has had a new wound over his tailbone for the last three days that has been draining. He reports that he was referred to the emergency department today by his PCP. The patient denies any abdominal pain, fever, and chills. He states that does not have a history of intestinal trouble, medication use that suppresses his immune system , diabetes, and MRSA. He reports that he has a family history of abscesses. Source of History: patient Onset: three days ago Position: other (rectum) Quality: other (draining) Timing: constant Associated Symptoms: No fevers, No chills, No abdominal pain Review of Systems See HPI for pertinent positives & negatives. A total of 10 systems reviewed and were otherwise negative. Past Medical & Surgical Medical Problems: (1) Depression (2) Paranoid schizophrenia (3) Perirectal abscess (4) Tobacco use disorder (5) Tobacco Use Disorder Family History Abscess of skin or subcutaneous tissue FH: breast cancer MOTHER Social History Smoking Status: Current Every Day Smoker Alcohol Use: occasionally Drug Use: none Marital Status: single Occupation Status: disabled Current/Historical Medications Scheduled Cephalexin Monohydrate (Keflex), 500 MG PO QID Escitalopram (Lexapro), 10 MG PO QPM Olanzapine (Zyprexa), 10 MG PO QPM Sulfa/Trimethoprim (Bactrim Ds 800MG/160MG), 1 TAB PO BID Scheduled PRN Acetaminophen (Tylenol), 1,000 MG PO Q6H PRN for Pain or Fever Hydroxyzine Hcl (Atarax), 50 MG PO DAILY PRN for Anxiety Allergies Coded Allergies: Penicillins (Verified Allergy, Unknown, A CHILD, HAD MEFOXIN IN 2008 WITHOUT PROBLEM, 08/04/17) Physical Exam Vital Signs Date Time Temp Pulse Resp B/P (MAP) Pulse Ox O2 Delivery O2 Flow Rate FiO2 12/20/17 19:20 84 18 108/61 98 12/20/17 17:34 36.8 108 17 116/69 99 Room Air Physical Exam GENERAL: alert, well appearing, well nourished, no distress, non-toxic EYE EXAM: normal conjunctiva, PERRL and EOM's grossly intact OROPHARYNX: no exudate, no erythema, lips, buccal mucosa, and tongue normal and mucous membranes are moist NECK: supple, no nuchal rigidity, no adenopathy, non-tender LUNGS: Clear to auscultation. Normal chest wall mechanics HEART: no murmurs, S1 normal and S2 normal ABDOMEN: abdomen soft, non-tender, normo-active bowel sounds, no masses, no rebound or guarding. BACK: Back is symmetrical on inspection and there is no deformity, no midline tenderness, no CVA tenderness. BUTTOCKS/RECTUM: 6cm circumferential area at the top of the gluteal cleft over the sacrum with central fluctuance and surrounding induration as well as mild overlying erythema that is consistent with abscess, no drainage or bleeding. Buttocks themselves with multiple scars consistent with prior abscesses and I& D. No perianal or perirectal abscess noted, no drainage or bleeding in perianal area. SKIN: no rashes and no bruising UPPER EXTREMITIES: upper extremities are grossly normal. FROM, nml pulses. LOWER EXTREMITIES: No pitting edema. FROM, nml pulses. NEURO EXAM: Normal sensorium, cranial nerves II-XII grossly intact, normal speech, no gross weakness of arms, no gross weakness of legs. Odd affect. Medical Decision & Procedures Medications Administered Medications (Trade) Dose Ordered Sig/Danette Route Start Time Stop Time Status Last Admin Dose Admin Cephalexin Monohydrate (Keflex Cap) 500 mg NOW ONCE PO 12/20/17 18:45 12/20/17 18:46 DC 12/20/17 18:59 500 MG Cephalexin Monohydrate (Keflex 500MG Home Pack) 1 homepack NOW ONCE PO 12/20/17 18:45 12/20/17 18:46 DC 12/20/17 18:59 1 HOMEPACK Trimethoprim/ Sulfamethoxazole (Septra Ds 800/ 160MG Tab) 1 tab NOW STAT PO 12/20/17 18:38 12/20/17 18:40 DC 12/20/17 18:58 1 TAB Trimethoprim/ Sulfamethoxazole (Sulfameth/ Trimeth Ds 800/ 160MG Home Pack) 1 homepack UD ONCE PO 12/20/17 18:45 12/20/17 18:46 DC 12/20/17 19:00 1 HOMEPACK Procedure Incision & Drainage Indication: Abscess. Location: Superior aspect of gluteal cleft over sacrum. Verbal consent was obtained after the risks and benefits were explained, including but not limited to bleeding, scarring, infection, pain, and bone/joint /nerve damage. At this time, the risks of the procedure are less than the risks of NOT performing the procedure. A time out was taken and the correct patient and site identified. The skin was prepped with betadine and a sterile field set. The wound was anesthetized with 7 ml of 1% lidocaine with epinephrine. The abscess cavity was entered with a number 11 blade and copious amounts of purulent yellow drainage expressed. Abscess explored with forceps which were used to break up loculations. Copious irrigation was performed using normal saline. The wound was explored for foreign bodies and none found. Debridement was not performed. Packing placed and a sterile dressing applied. Detailed wound care instructions and signs and symptoms of worsening infection reviewed with the patient. No complications and the patient tolerated the procedure well. ED Course 1741: The patient was evaluated in room B10. A complete history and physical exam was performed. 1811: I performed an incision and drainage procedure on the patient. 1813: Lidocaine 7ml Injection 8: Trimethoprim/Sulfamethoxazole 1 tab PO 1944: Trimethoprim/Sulfamethoxazole 1 homepack PO, Cephalexin Monohydrate 1 homepack PO, Keflex Cap 500mg PO 1925: Upon reevaluation, the patient is feeling better. I discussed the findings and the treatment plan with the patient. He verbalizes agreement and understanding. The patient was discharged home. Medical Decision Differential Diagnoses Include: pilonidal abscess, perirectal abscess, perianal abscess, folliculitis, cellulitis, as well as others. Patient well-appearing here in no systemic complaints. Abscess this time likely pilonidal given location. No acute perianal or perirectal abscess as he has had previously. Multiple well-healed scars noted on the patient's buttocks and perianal areas consistent with history of multiple previous abscesses in this region. No evidence of prior I&D or scarring for a pilonidal abscess. Patient tolerated procedure well and copious amounts of purulent discharge were drained. Patient afebrile here, no abdominal pain, no nausea vomiting. Given type of abscess presentation and lack of systemic symptoms today I do not feel patient warranted blood work at this time. Wound culture sent during I&D. Wound was drained, loculations disrupted, irrigated, and then packed. Discussed with patient follow-up within 48 hours for a recheck with either family doctor, his wound care nurse, or to return here. Discussed symptoms to watch and return for, he verbalized understanding. Patient started on antibiotics here and given prescriptions. Patient denies any history of MRSA. Patient well-appearing at time of discharge. Medication Reconcilliation Current Medication List: was personally reviewed by me Blood Pressure Screening Patient's blood pressure: Normal blood pressure Blood pressure disposition: Did not require urgent referral Impression Primary Impression: Pilonidal abscess Scribe Attestation The scribe's documentation has been prepared under my direction and personally reviewed by me in its entirety. I confirm that the note above accurately reflects all work, treatment, procedures, and medical decision making performed by me. Departure Information Dispostion Home / Self-Care Prescriptions Sulfa/Trimethoprim (Bactrim Ds 800MG/160MG) Tab 1 TAB PO BID, #14 TAB Prov: Bee Kim, DO 12/20/17 Cephalexin Monohydrate (Keflex) 500 Mg Cap 500 MG PO QID, #28 CAP Prov: Bee Kim, DO 12/20/17 Referrals No Doctor, Assigned (PCP) Forms HOME CARE DOCUMENTATION FORM, IMPORTANT VISIT INFORMATION, WORK / SCHOOL INSTRUCTIONS Patient Instructions My [facility] Additional Instructions Please take antibiotics as prescribed. The packing will need to be changed in 48 hours. You may return to the emergency room or follow-up with your family doctor to do so. Please also have your wound care nurse recheck the area also. Please continue to monitor for any worsening symptoms including increased redness or drainage, increased pain, fevers or chills, nausea or vomiting. If you develop these are of any other new or concerning symptoms please return to the ER medially. Please continue your other routine medications as prescribed. Please consider eating yogurt daily or taking a daily probiotic while you are on antibiotics to help avoid GI side effects.
[2017-12-20] MEDS ORDERED: HYDR-3126 PO (18:08)
[2017-12-20] MEDS ORDERED: ACET-1256 PO (18:08)
[2017-12-20] MEDS ORDERED: LIDO/EPINEPHRINE/SOD BICARB 20 ML VIAL ONE (18:14)
[2017-12-20] MEDS ORDERED: SULFAMETHOXAZOLE/TRIMETHOPRIM DS 800/160MG TAB PO STA (18:38)
[2017-12-20] MEDS ORDERED: CEPHALEXIN MONOHYDRATE 250 MG CAP PO ONE (18:45)
[2017-12-20] MEDS ORDERED: SEPTRA DS HOME PACK 1 EA VIAL PO ONE (18:45)
[2017-12-20] MEDS ORDERED: CEPHALEXIN 500MG HOME PACK 1 EA BTL PO ONE (18:45)
[2017-12-20] MEDS ORDERED: SULF800T23 PO (19:06)
[2017-12-20] MEDS ORDERED: CEPH500C PO (19:06)
[2017-12-20 19:20] VITALS: BP 108/61; PULSE 84; O2SAT 98
--- NOTE | 2017-12-26 17:52 | Pharmacy Progress Note ---
ED Pharmacist Culture FollowUp Date of Service: Dec 26, 2017. Corynebacterium and Actinomyces isolated from abscess/sacrum culture. Patient was sent home with cephalexin and Bactrim. Actinomyces is part of the normal bowel sweta, but can also cause abscess. Therefore it could be a contaminant or may represent true infection. Neither cephalexin nor Bactrim are likely to cover this organism. Corynebacterium is part of the normal sweta and is unlikely to cause infection. Patient was seen in follow-up in the ED on 12/22/17. Please reference that visit for extensive information. In brief, the "wound has greatly improved", no purulent drainage was noted, and the patient's pain had improved. Actinomyces therefore not likely to be causing infection. Of note, patient was instructed to return to the ED for worsening infection. Spoke with Dr. Du - no further intervention at this time.
== END 2017-12-20 19:20 | disposition home or self-care (01) ==
LOC: C.EDB 17:32
DX: L05.01 Pilonidal cyst with abscess (principal); E11.9 Type 2 diabetes mellitus without complications; F20.0 Paranoid schizophrenia; Z79.899 Other long term (current) drug therapy; Z87.2 Personal history of diseases of the skin and subcutaneous tissue; Z88.0 Allergy status to penicillin

== ENCOUNTER 2017-12-22 17:31 | Emergency (ER) | payer OTHER ==
[~2017-12-22] VITALS: Ht 182.9 cm; Wt 81.5 kg
[~2017-12-22 17:31] MED LIST changes: +ACET-1256 PO; +CEPH500C PO; +HYDR-3126 PO; +SULF800T23 PO
[2017-12-22 17:37] VITALS: TEMP 36.6; Ht 182.9 cm; Wt 81.5 kg
[2017-12-22] MEDS ORDERED: IBUPROFEN 600 MG TAB PO STA (17:57)
--- NOTE | 2017-12-22 18:07 | EMERGENCY ROOM VISIT NOTE ---
ED Visit Note First contact with patient: 17:40 Chief Complaint: Wound check History of Present Illness: This patient is a 37-year-old male with past medical history significant for recurrent perirectal and pilonidal cysts who presents to the Emergency Department for wound check. Patient had a pilonidal cyst that was drained in the emergency department on 12/20, he states that he saw the wound care nurse today who took out his packing, but recommended that he come back to the emergency department to be reevaluated. The patient reports that the wound has greatly improved since last visit. Patient states that they have been following the discharge instructions completely. Patient rates his current discomfort as a 4/10. They report this is much better than previous exam. They report no purulent drainage. Patient denies any development of any fevers, chills, sweats, streaking, discharge, or foul odor. He has also been taking antibiotics Keflex and Bactrim, which he states he has been taking as prescribed and has not missed any doses. Medications: Reviewed in chart, see below. Allergies: Reviewed in chart, see below. PMH: Reviewed in chart, see problem list below. SHx: Lives in a personal skilled nursing. He is a current everyday smoker. ROS: All pertinent positive and negative review of systems are appropriately documented in the History of Present Illness. Physical Exam: VITAL SIGNS - Vital signs and Nursing Notes were reviewed. GENERAL - Pleasant and cooperative, well-developed, well-nourished, and in no acute distress. SKIN - There is a 1 cm incision noted just to the left and superior to the gluteal cleft, mildly tender to palpation. There is a small amount of serosanguineous drainage noted, no purulent drainage and no foul odor. The surrounding tissue is mildly indurated, but is not hot or erythematous. No fluctuance. No lymphangitic streaking. NEURO - Patient is A&Ox4 and communicates appropriately with the provider. ED Course: Previous ED visit note was reviewed by myself prior to patient evaluation. The wound was assessed and is as describe above. Patient states that the wound has greatly improved since previous visit. Compared to description in previous ED visit note, the wound has improved. The packing had already been removed by the patient's wound care nurse prior to arrival. The wound was gently probed with forceps and pressure was applied to express drainage from the wound, this is serosanguineous and there is no evidence of purulence or malodorous drainage. The wound is fairly superficial, I do not feel that additional packing is recommended at this time. After further discussion with the patient , I am comfortable discharging the patient to home for completion of the treatment plan outlined in previous ED discharge summary. Discharge instructions , including worrisome symptoms for return visit to the Emergency Department were discussed with the patient who acknowledges understanding. The patient did request something for pain, he states he has only been taking Tylenol, which does help, but he would like something stronger for the pain. PO Motrin was given and he was encouraged to alternate Tylenol Motrin for better pain management at home. Patient was discharged to home afebrile and in good condition. Medication Reconciliation: I attest that I have personally reviewed the patient' s current medication list. Blood pressure screening: The patient was found to have normal blood pressure on screening and does not require follow-up for repeat blood pressure check. I discussed the patient with Dr. ellington, who also evaluated the patient and agrees with my assessment and plan. 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 (4) Tobacco use disorder Status: Chronic Current/Historical Medications Scheduled Cephalexin Monohydrate (Keflex), 500 MG PO QID Escitalopram (Lexapro), 10 MG PO QPM Olanzapine (Zyprexa), 10 MG PO QPM Sulfa/Trimethoprim (Bactrim Ds 800MG/160MG), 1 TAB PO BID Scheduled PRN Acetaminophen (Tylenol), 1,000 MG PO Q6H PRN for Pain or Fever Hydroxyzine Hcl (Atarax), 50 MG PO DAILY PRN for Anxiety Allergies Coded Allergies: Penicillins (Verified Allergy, Unknown, A CHILD, HAD MEFOXIN IN 2008 WITHOUT PROBLEM, 12/22/17) Vital Signs Date Time Temp Pulse Resp B/P (MAP) Pulse Ox O2 Delivery O2 Flow Rate FiO2 12/22/17 18:42 72 18 128/88 98 12/22/17 17:37 36.6 94 18 117/78 100 Room Air Medications Administered Medications (Trade) Dose Ordered Sig/Danette Route Start Time Stop Time Status Last Admin Dose Admin Ibuprofen (Motrin Tab) 600 mg NOW STAT PO 12/22/17 17:57 12/22/17 17:58 DC 12/22/17 18:14 600 MG Departure Information Impression Primary Impression: Encounter for wound re-check Dispostion Home / Self-Care Condition GOOD Referrals No Doctor, Assigned (PCP) Patient Instructions ED Bandage Change, ED Cyst Pilonidal Infected [facility] Additional Instructions Discharge Instructions: You were seen in the Emergency Department today for a Wound Recheck. You should continue to follow the Discharge Instructions outlined for you in your previous Emergency Department visit. You should perform twice daily wound care until the area is completely healed. Wash the area with soap and warm water, pat dry, and apply a clean dressing. Continue to look for signs of worsening infection of the wound including: increased pain, swelling, foul discharge, streaking, or increased temperature. If any of these are noticed you should return to the Emergency Department for further assessment and treatment. For pain control, you can use the following [id number] medicines (if >12 yo): - Regular strength (325mg/tab) Tylenol (acetaminophen) 2 tabs every 6 hours as needed. Do not exceed 10 tablets in a 24 hour period. Avoid taking more than 3000mg of Tylenol per day. This includes any other sources of acetaminophen you may take on a regular basis. - Regular strength (200 mg/tab) Advil (ibuprofen) 3 tabs every 6 hours as needed. Do not exceed a dose of 2400 mg per day. - For best results, alternate between Tylenol and ibuprofen every 3-4 hours. Continue to follow with wound care as prescribed. Return to the emergency department if your symptoms worsen despite treatment course outlined above.
[2017-12-22 18:42] VITALS: BP 128/88; PULSE 72; O2SAT 98
--- NOTE | 2017-12-23 04:18 | EMERGENCY ROOM VISIT NOTE ---
ED Visit Note First contact with patient: 17:40 I reviewed the patient's past medical history, medications, and visit nursing notes. I discussed the case with the physician night assistant, examined the patient, and agree with the findings and plan as documented in the physician assistants note.
== END 2017-12-22 18:44 | disposition home or self-care (01) ==
LOC: C.EDB 17:32 → C.EDD 18:44
DX: L05.91 Pilonidal cyst without abscess (principal); Z98.890 Other specified postprocedural states; F32.9 Major depressive disorder, single episode, unspecified; Z79.899 Other long term (current) drug therapy; F20.0 Paranoid schizophrenia; Z88.0 Allergy status to penicillin

== ENCOUNTER 2018-09-05 14:32 | Inpatient (IN) ==
[2018-09-05] MEDS ORDERED: fentaNYL citrate 100 MCG/2 ML VIAL IV ONE (15:16)
[2018-09-05] MEDS ORDERED: cefTRIAXone SODIUM 1,000 MG/50 ML BAG IV STA (15:21)
[2018-09-05 17:00] LABS: Albumin Globulin Ratio 0.6 (0.9-2); Albumin Level 3.2 gm/dl (3.4-5.0); BUN Creatinine Ratio 6.3 (10-20); Bilirubin,Total 0.5 mg/dl (0.2-1); Calcium 8.6 mg/dl (8.5-10.1); Creatinine Clr Calc Pharmacy 129.6 ml/min; Est GFR (African American) 127.8; Est GFR (Non-African American) 110.3; Globulin 5.1 gm/dl (2.5-4.0); Total Protein 8.3 gm/dl (6.4-8.2)
[2018-09-05 17:11] LABS: Potassium 2.6 mmol/L (3.5-5.1)
[2018-09-05 17:21] LABS: Basophils # (auto) 0.01 K/uL (0-0.2); Basophils % (auto) 0.1 %; Eosinophils # (auto) 0.14 K/uL (0-0.5); Eosinophils % (auto) 1.1 %; Hemoglobin 9.6 g/dL (14.0-18.0); Immature Granulocytes # (auto) 0.04 K/uL (0.00-0.02); Immature Granulocytes % (auto) 0.3 %; Lymphocytes # (auto) 2.83 K/uL (1.2-3.4); Lymphocytes % (auto) 21.7 %; Mean Corpuscular Hgb Conc 33.1 g/dL (32-36); Mean Corpuscular Volume 106.6 fL (80-100); Mean Platelet Volume 8.2 fL (7.4-10.4); Monocytes # (auto) 0.54 K/uL (0.11-0.59); Monocytes % (auto) 4.1 %; Neutrophils # (auto) 9.48 K/uL (1.4-6.5); Neutrophils % (auto) 72.7 %; Platelet Count 563 K/uL (130-400); RDW Coefficient of Variation 14.7 % (11.5-14.5); RDW Standard Deviation 56.7 fL (36.4-46.3); Red Blood Count 2.72 M/uL (4.7-6.1); White Blood Count 13.04 K/uL (4.8-10.8)
[2018-09-05] MEDS ORDERED: IOVERSOL 100ml IV PRN (17:42)
--- NOTE | 2018-09-05 18:29 | CT Scan Report ---
CT SCAN OF THE PELVIS WITH IV CONTRAST CLINICAL HISTORY: Gluteal cleft abscess. COMPARISON STUDY: Pelvic CT dated 06/28/2018. TECHNIQUE: Following the IV administration of 94 cc of Optiray 320, CT scan of the pelvis is performe d from the pelvic inlet to the proximal femora. Images are reviewed in the axial, sagittal, and coron al planes. IV contrast was administered without complication. A dose lowering technique was utilized adhering to the principles of ALARA. CT DOSE: 274.67 mGy.cm FINDINGS: The bladder, prostate, and seminal vesicles are normal in appearance. There is no free fluid in the p buster. There is no pelvic sidewall lymphadenopathy. Mildly enlarged bilateral inguinal lymph nodes me asure up to 1.7 cm in short axis and are likely on a reactive basis. The perianal soft tissues are normal in appearance. The visualized loops of small bowel and colon are normal in caliber. A normal appendix is identified. There is age advanced atherosclerotic calcificat ion of the iliac arteries. The iliac arteries are patent. The bony pelvis is intact. No lytic or blastic lesion is seen. The regional musculature is normal and symmetric. There is extensive soft tissue induration of the gluteal and infragluteal soft tissues with overlying dermal thickening. There is phlegmonous change with a complex/multiloculated collection identified w ithin the right buttock deep to the marker at the site of interest. This is best seen on image #290 a nd measures approximately 3 x 8 x 2 cm in maximum dimension. Phlegmonous change and a collection is a lso identified within the left buttock at the same level. This measures approximately 2 x 1.5 x 3.5 c m as seen on image #277. IMPRESSION: 1. There is soft tissue induration/inflammation with overlying dermal thickening seen involving the b ilateral gluteal and infragluteal soft tissues. The appearance is typical for cellulitis. 2. There are multiloculated fluid collections identified within the buttock bilaterally as detailed a dexter consistent with abscesses. This has worsened as compared 06/28/2018. 3. This does not involve the perianal soft tissues. 4. The pelvic viscera is normal in appearance. 5. Mildly enlarged bilateral inguinal lymph nodes are nonspecific and likely on a reactive basis. Cli nical correlation will be required. Dictated: 09/05/2018 5:57 PM Transcribed: 09/05/2018 6:28 PM Lynn [id number] [email or web address] Electronically signed by: Rico Bruce M.D. 09/05/2018 6:29 PM
[2018-09-05] MEDS ORDERED: metroNIDAZOLE 500 MG/100 ML BAG IV STA (19:02)
[2018-09-05] MEDS ORDERED: VANCOMYCIN HCL 1,000 MG/270 ML BAG IV STA (19:02)
[2018-09-05] MEDS ORDERED: VANCOMYCIN CONSULT ACTIVE PRN ×2 (19:02→19:40)
[2018-09-05] MEDS ORDERED: PROMETHAZINE HCL 12.5 MG in SODIUM CHLORIDE 0.9% 50 ML IV PRN (19:08)
[2018-09-05] MEDS ORDERED: PROMETHAZINE HCL 25 MG in SODIUM CHLORIDE 0.9% 50 ML IV PRN (19:08)
[2018-09-05] MEDS ORDERED: ONDANSETRON INJ 2 MG/ML 2 ML VIAL IV PRN (19:08)
--- NOTE | 2018-09-05 19:32 | History & Physical Report ---
Date of Service September 05, 2018 Assessment & Plan (1) Abscess of buttock: Patient has bilateral buttock soft tissue abscesses and sinus tracts. I have discussed with the patient operative incision and drainage and debridement. Most likely will have to place drains or setons to improve the infection. He does not wish to have significant tissue debrided. I also told him he would most likely require additional operations in the future possibly referral to his tertiary care center. We will have infectious disease, medical team, and wound care team involved in his care during his admission. For now we will place him on IV antibiotics and pain medication schedule him for surgery tomorrow. History of Present Illness Primary Care Provider: Kenneth Agrawal DO Patient admitted to the emergency room with worsening buttock pain and evidence on CAT scan of enlarging abscesses. She has a history of current buttock abscesses and sinus tract appear to be in the soft tissue of the buttocks and not from perirectal or perianal abscesses . He has had prior drainage procedures done in 2017 and 2017 with poor compliance and follow-up. Allergies Allergy/AdvReac Type Severity Reaction Status Date / Time Penicillins Allergy Unknown Unknown Verified 09/05/18 15:44 Home Medications Home Medications Medication Instructions Recorded Confirmed Type escitalopram 10 mg tablet 10 mg PO QPM tab 01/17/18 09/05/18 History hydroxyzine HCl 50 mg tablet 50 mg PO HS PRN 01/17/18 09/05/18 History olanzapine 10 mg tablet 10 mg PO QPM tab 01/17/18 09/05/18 History Past Med/Surg History Social History Preferred Language: Sami Feels Safe at Home: Yes Smoking Status: Current every day smoker Review of Systems Please see HPI for positive review of systems other systems negative. Physical Exam Vital Signs (Past 24 Hours): Last Vital Signs Temp 36.5 C 09/05/18 14:39 Pulse 81 09/05/18 18:42 Resp 12 09/05/18 18:42 BP 120/72 09/05/18 18:42 Pulse Ox 98 09/05/18 18:42 He is awake and alert he is in no distress he is lying on his side because of the buttock pain is head is atraumatic neck is supple he is in no respiratory distress. His heart rate is normal his abdomen is soft His buttocks show severe induration open sinus tract with drainage very tender. He does not appear to have spreading cellulitis. Extremities are well perfused he is awake and alert Results & Data Diagnostic Findings I have reviewed his CT scan
[2018-09-05] MEDS ORDERED: VANCOMYCIN HCL 1,750 MG in SODIUM CHLORIDE 0.9% 500 ML IV ONE (19:40)
[2018-09-05] MEDS: HYDROCODONE/ACETAMOPHEN 5/325MG TAB PO PRN (20:57)
[2018-09-05] MEDS ORDERED: HYDROmorphone INJ 1 MG/ML SYRINGE IV PRN (21:44)
[2018-09-05] MEDS ORDERED: HYDROmorphone INJ 0.5 MG/0.5 ML SYR IV PRN (21:44)
[2018-09-05] MEDS ORDERED: POTASSIUM CHLORIDE 20 MEQ TABCR PO STA (22:41)
[2018-09-05] MEDS ORDERED: POTASSIUM CHLORIDE 40 MEQ in SODIUM CHLORIDE 0.9% 1000ML 1,000 ML IV SCH (22:45)
--- NOTE | 2018-09-05 22:58 | Consultation ---
Date of Consultation September 05, 2018 Assessment & Plan (1) Abscess of buttock: To undergo surgical debridement 09/06/[address] Valladares Continue IV antibiotics per surgery Pain/wound management per surgery monitor cbc replace K infectious disease and wound team consulted (2) Hypokalemia: Give 40meq KCL x 1 now Additional 40meq KCL at 0200 IVF 1L with 40meq supplement repeat K in am (3) Anemia: H/H stable at 9.6 and 29.0 ? if secondary to recurrent abscesses Macrocytic hyperchromic Check anemia panel in a.m. monitor h/h (4) Paranoid schizophrenia: continue lexapro flat affect but mood stable (5) Tobacco use disorder: encourage cessation denies need for nicotine replacement (6) DVT prophylaxis: Per Primary Disposition: D/C to home when able Follow up: PCP Dr. Agrawal along with appropriate surgical follow up Patient was seen and examined in collaboration with Dr. Julio, please see addendum Starting 09/06/18 patient will be under the care of Dr. Jimenez Thank you for this consultation. We will follow the patient with you during their hospital stay. You can reach a member of the [facility] Hospitalist Team 13/12 via pager @ [phone]. Supervising Physician Co-Signing Physician Notes I have seen and examined the patient and have discussed the case with the provider above. I agree with the assessment and plan as stated. Uncertain why K is low. Mg normal. Agree with replacement overnight and recheck in am with more potassium as needed for K>3.5. If persistently low, may consider asking Nephrology to evaluate. DO Sumanth History of Present Illness Reason for Consultation: Medical management Requesting Physician: Dr. Valladares Attending Physician: Benja Valladares MD, [facility] History of Present Illness This is a 38-year-old male who has a significant past medical history of paranoid schizophrenia, MDD, history of tobacco use, hidradenitis suppurativa who presents to [facility] secondary to buttock pain. In ED patient underwent CT scan which revealed enlarging abscesses which appeared to be in soft tissue of the buttock and not from perirectal or perianal abscesses. We have been consulted for medical management as patient is to undergo I&D of abscess on 09/06/[address] Valladares. Currently complains of 8 out of 10 buttock pain. Otherwise has no other complaints. Denies fever, chills, sweats, lightheadedness, dizziness, chest pain, shortness of breath, palpitations, nausea, vomiting, diarrhea, abdominal pain, change in bowel or urinary habits. His appetite has been normal. He currently just ate [employer] despite being on clear liquid diet. According to outpatient records and from Dr. Valladares's note he has had prior drainage procedures done in 2017 and 2018 with poor compliance and follow-up. He also has history of perirectal abscess requiring I&D back in 2007. Allergies Allergy/AdvReac Type Severity Reaction Status Date / Time Penicillins Allergy Unknown Unknown Verified 09/05/18 15:44 Home Medications Home Medications Medication Instructions Recorded Confirmed Type escitalopram 10 mg tablet 10 mg PO QPM tab 01/17/18 09/05/18 History hydroxyzine HCl 50 mg tablet 50 mg PO HS PRN 01/17/18 09/05/18 History olanzapine 10 mg tablet 10 mg PO QPM tab 01/17/18 09/05/18 History Patient History Medical History Perianal abscess (Acute) Perirectal abscess (Acute) Depression (Chronic) Paranoid schizophrenia (Chronic) Tobacco use disorder (Chronic) Surgical History History of incision and drainage Social History Preferred Language: Wolof Communication Ability: Effective Esthetician/Spa Coordinator Required: No Beliefs That Will Affect Care: None Current Living Situation: Other Current Living Situation Comment: room mates Other Information That Helps Us Care for You: No Feels Safe at Home: Yes Safety Concerns: Feels Safe At This Time Smoking Status: Current every day smoker Hx Alcohol Use: Yes Hx Substance Use: No Review of Systems As noted per HPI, 10 systems reviewed and negative unless noted above. Physical Exam Vital Signs (Past 24 Hours): Last Vital Signs Temp 37.6 C H 09/05/18 21:06 Pulse 97 H 09/05/18 21:06 Resp 18 09/05/18 21:06 BP 121/78 09/05/18 20:10 Pulse Ox 95 09/05/18 21:06 Physical Exam: Gen: WD/WN, , M, NAD, lying in lateral decub position watching movie on laptop, flat affect, connversing easily Head: Normocephalic, Atraumatic Eyes: Sclera normal, no conjunctival injection, PERRLA, EOMI ENT: Gross hearing intact, normal pharynx, mucous membranes moist Neck: supple, no adenopathy, No JVD, no bruit, Resp: Clear to auscultation b/l, no wheeze, rales, rhonchi. Normal insp/exp effort, no accessory muscle use CV: tachycardic rate, regular rhythm, no murmur, rub, gallop, or ectopy Abd: +BS x 4, soft, nontender, nondistended Musculoskeletal: moves extremities active rom x 4, strength intact, good diet tech strength Extremities: No edema bilaterally Skin: warm, moist, no rash, negative turgor, cap refill < 2sec Neuro: Alert and oriented x 3, speech normal, good mood/affect, cran nerve 2-12 intact grossly : +sinus tract, buttock induration, + drainage Results & Data Laboratory Results Short CBC 09/05/18 09/05/18 Range/Units 16:35 17:08 WBC Cancelled 13.04 H Hgb Cancelled 9.6 L Hct Cancelled 29.0 L Plt Count Cancelled 563 H BMP 09/05/18 09/05/18 15:42 16:35 Sodium 137 Potassium 2.6 L Chloride 101 Carbon Dioxide 34 H BUN 5 L Creatinine 0.84 Glucose 64 L Calcium 8.6 Liver Function 09/05/18 09/05/18 Range/Units 15:42 16:35 Total Bilirubin 0.5 (0.2-1) mg/dl AST 10 L (15-37) U/L ALT 10 L (12-78) U/L Alkaline Phosphatase 90 (45-117) U/L Albumin 3.2 L (3.4-5.0) gm/dl Diagnostic Findings Pelvis CT: IMPRESSION: 1. There is soft tissue induration/inflammation with overlying dermal thickening seen involving the bilateral gluteal and infragluteal soft tissues. The appearance is typical for cellulitis. 2. There are multiloculated fluid collections identified within the buttock bilaterally as detailed above consistent with abscesses. This has worsened as compared 06/28/2018. 3. This does not involve the perianal soft tissues. 4. The pelvic viscera is normal in appearance. 5. Mildly enlarged bilateral inguinal lymph nodes are nonspecific and likely on a reactive basis. Clinical correlation will be required. Medications Administered Hydrocodone Bitart/Acetaminophen ([place] 5/325) 2 tab PO 3XDQ4 PRN PRN Reason: Pain Stop: 09/19/18 19:31 Last Admin: 09/05/18 20:57 Dose: 2 tab Documented by: [id number] Discontinued Medications Fentanyl Citrate (Fentanyl Citrate) 75 mcg IV NOW ONE Stop: 09/05/18 15:17 Last Admin: 09/05/18 16:30 Dose: 75 mcg Documented by: [id number] Ceftriaxone Sodium (Rocephin) 1,000 mg in 50 mls @ 100 mls/hr IV NOW STA Stop: 09/05/18 15:50 Last Infusion: 09/05/18 17:11 Dose: 0 mls/hr Documented by: [id number] Admin: 09/05/18 16:32 Dose: 100 mls/hr Documented by: [id number] Metronidazole (Flagyl) 500 mg in 100 mls @ 100 mls/hr IV NOW STA Stop: 09/05/18 20:01 Last Infusion: 09/05/18 21:37 Dose: 0 mls/hr Documented by: [id number] Admin: 09/05/18 19:31 Dose: 100 mls/hr Documented by: [id number] Vancomycin HCl 1,750 mg/ (Sodium Chloride) 535 mls @ 200 mls/hr IV NOW ONE Stop: 09/05/18 22:20 Last Admin: 09/05/18 20:57 Dose: 200 mls/hr Documented by: [id number] Ioversol (Optiray 320 100ml) 94 ml IV ONCE PRN PRN Reason: Interaction Checking Stop: 09/09/18 17:41 Last Admin: 09/05/18 17:43 Dose: 94 ml Documented by: [id number]
[2018-09-05] MEDS ORDERED: ESCITALOPRAM OXALATE ORAL SOLN 10 MG/10 ML UDP PO SCH (23:50)
[2018-09-05] MEDS ORDERED: POTASSIUM CHLORIDE 20 MEQ TABCR PO ONE (23:55)
[2018-09-06] MEDS ORDERED: ESCITALOPRAM OXALATE 10 MG TAB PO STA (00:10)
[2018-09-06] MEDS: OLANZapine 10 MG TAB PO SCH ×2 (00:18→20:48)
[2018-09-06] MEDS ORDERED: POTASSIUM CHLORIDE 20 MEQ TABCR PO ONE (02:00)
[2018-09-06] MEDS ORDERED: VANCOMYCIN HCL 1,250 MG in SODIUM CHLORIDE 0.9% 250 ML IV SCH (05:00)
--- NOTE | 2018-09-06 06:39 | Progress Note ---
Date of Service September 06, 2018 Assessment & Plan (1) Abscess of buttock: For OR later this am- incision, drainage, some debridement Bilateral buttocks Subjective no acute chgs- for OR this am Physical Exam Vital Signs (Past 24 Hours): Last Vital Signs Temp 36.6 C 09/05/18 23:46 Pulse 95 H 09/05/18 23:46 Resp 14 09/05/18 23:46 BP 100/63 09/05/18 23:46 Pulse Ox 95 09/05/18 23:46 stable overnight
[2018-09-06 08:36] LABS: BUN Creatinine Ratio 9.5 (10-20); Calcium 8.1 mg/dl (8.5-10.1); Creatinine Clr Calc Pharmacy 162.5 ml/min; Est GFR (African American) 140.3; Potassium 2.9 mmol/L (3.5-5.1)
[2018-09-06 08:41] LABS: Ferritin 102.3 ng/ml (8-388)
--- NOTE | 2018-09-06 09:11 | Anesthesiology Consultation ---
Date of Service September 06, 2018 Assessment & Plan NPO Date Last Intake of Fluids: 09/05/18 Time Last Intake of Fluids: 21:00 Date Last Intake of Solids: 09/05/18 Time Last Intake of Solids: 18:00 History Surgery Operation Date: 09/06/18 08:30 Proposed Procedures p Pilonidal Cystectomy(Bilateral) - Benja Valladares MD, FACS Height/Weight Height: 6 ft Weight: 80.9 kg Allergies Allergy/AdvReac Type Severity Reaction Status Date / Time Penicillins Allergy Unknown Unknown Verified 09/06/18 08:52 Medications Home Medications Medication Instructions Recorded Confirmed Last Taken escitalopram 10 mg tablet 10 mg PO QPM tab 01/17/18 09/05/18 Unknown hydroxyzine HCl 50 mg tablet 50 mg PO HS PRN 01/17/18 09/05/18 Unknown olanzapine 10 mg tablet 10 mg PO QPM tab 01/17/18 09/05/18 Unknown Active Medications Generic Name Dose Route Start Last Admin Trade Name Freq PRN Reason Stop Dose Admin Hydrocodone Bitart/Acetaminophen 2 tab 09/05/18 19:32 09/05/18 20:57 [place] 5/325 PO 09/19/18 19:31 2 tab 3XDQ4 PRN Administration Pain Hydromorphone HCl 0.5 mg 09/05/18 21:44 09/06/18 05:57 Dilaudid IV 09/19/18 21:43 0.5 mg Q3HWA PRN Administration Pain Potassium Chloride 40 meq/ 1,020 mls @ 80 mls/hr 09/05/18 22:45 09/06/18 06:09 Sodium Chloride IV 09/06/18 11:29 80 mls/hr .[id number] CORNELIUS Infusion Vancomycin HCl 1,250 mg/ 275 mls @ 125 mls/hr 09/06/18 05:00 09/06/18 07:48 Sodium Chloride IV 09/16/18 04:59 Infused Q8H CORNELIUS Infusion Olanzapine 10 mg 09/05/18 23:50 09/06/18 00:18 Zyprexa PO 10/05/18 23:49 10 mg HS CORNELIUS Administration Past Medical History Medical History Perianal abscess (Acute) Perirectal abscess (Acute) Depression (Chronic) Paranoid schizophrenia (Chronic) Tobacco use disorder (Chronic) Past Family History Family History Other No pertinent family history Past Surgical History Surgical History History of incision and drainage Social History Smoking Status: Current every day smoker tobacco type: cigarettes Do You Dip or Chew Tobacco: No Hx Alcohol Use: Yes alcohol intake frequency: other Alcohol Intake Frequency Comment: very rarely Hx Substance Use: No substance use type: does not use Physical Exam Vital Signs Last Vital Signs Temp 36.7 C 09/06/18 08:06 Pulse 70 09/06/18 08:06 Resp 16 09/06/18 08:06 BP 100/62 09/06/18 08:06 Pulse Ox 92 09/06/18 08:06 Testing Laboratory Results 09/05/18 17:08 09/06/18 07:40 09/05/18 17:00 Gram Stain - Final Buttock
[2018-09-06 09:21] LABS: Folate (Folic Acid) 2.55 ng/ml (>5.38)
--- NOTE | 2018-09-06 09:48 | Progress Note ---
Date of Service September 06, 2018 Assessment & Plan (1) Abscess of buttock: pt is refusing surgical intervention and has not followed up after past operations. He understands infection could worsen. I will transfer care to the medical team and infectious disease and likely have him f/u with local doctor. I will sign off after transfer to med service Subjective see plan Physical Exam Vital Signs (Past 24 Hours): Last Vital Signs Temp 36.7 C 09/06/18 08:06 Pulse 70 09/06/18 08:06 Resp 16 09/06/18 08:06 BP 100/62 09/06/18 08:06 Pulse Ox 92 09/06/18 08:06
[2018-09-06] MEDS: POTASSIUM CHLORIDE / WTR 10 MEQ/100 ML PLCT IV SCH ×4 (09:53→12:56)
[2018-09-06] MEDS ORDERED: PIPERACILL/TAZOBAC CONSULT ACTIVE PRN (10:05)
--- NOTE | 2018-09-06 10:10 | Infectious Disease Consult ---
Date of Consultation September 06, 2018 Assessment & Plan (1) Abscess of buttock: 38-year-old male with chronic buttock abscess in the setting of poor compliance. Pending further culture results and given inability to do surgery, would broaden coverage to Zosyn. Length and antibiotics will be determined by clinical response. Will follow. History of Present Illness Reason for Consultation: Buttock abscesschronic Attending Physician: Benja Valladares MD, FACS History of Present Illness 38-year-old male known to me from previous infectious disease consultation with history of schizophrenia, previous perirectal abscess and tobacco abuse disorder, admitted to the hospital with chronic draining bilateral buttock wound s with pain and erythema. Was found on CT scan to have evidence of abscess collection and surgical intervention was planned for this morning, but patient now refusing stating that wound is draining and he wants to treat without surgery. Currently on vancomycin. Previous culture has grown group C strep. Denies any fever or chills. Allergies Allergy/AdvReac Type Severity Reaction Status Date / Time Penicillins Allergy Unknown Unknown Verified 09/06/18 08:52 Home Medications Home Medications Medication Instructions Recorded Confirmed Type escitalopram 10 mg tablet 10 mg PO QPM tab 01/17/18 09/05/18 History hydroxyzine HCl 50 mg tablet 50 mg PO HS PRN 01/17/18 09/05/18 History olanzapine 10 mg tablet 10 mg PO QPM tab 01/17/18 09/05/18 History Patient History Medical History Perianal abscess (Acute) Perirectal abscess (Acute) Depression (Chronic) Paranoid schizophrenia (Chronic) Tobacco use disorder (Chronic) Surgical History History of incision and drainage Family History Other No pertinent family history Social History Smoking Status: Current every day smoker second hand exposure: Yes substance use type: does not use Physical Exam Vital Signs (Past 24 Hours): Last Vital Signs Temp 36.7 C 09/06/18 08:06 Pulse 70 09/06/18 08:06 Resp 16 09/06/18 08:06 BP 100/62 09/06/18 08:06 Pulse Ox 92 09/06/18 08:06 Constitutional: WD/WN, vitals as above comfortable; no acute distress Eyes: PERRL, conjunctivae normal, anicteric sclerae ENMT: external ear and nose normal, oropharynx normal Neck: trachea midline, no thyromegaly neck nontender Respiratory: normal respiratory effort, lungs clear to auscultation normal percussion; does not use accessory muscles Cardiovascular: Rate/Rhythm: regular rate and regular rhythm Heart Sounds: normal S1 and normal S2; no gallop, no murmur and no cardiac rub Vessels: normal peripheral pulses; no JVD Gastrointestinal (Abdomen): normal bowel sounds, soft, nontender, no hepatosplenomegaly Musculoskeletal: no cyanosis or clubbing, extremities motor strength 5/5 Spine: thoracic spine normal to inspection and lumbar spine normal to inspection; no cervical spinal tenderness Skin: no rashes, warm and dry normal turgor and + fluctulance (Bilateral areas of drainage and erythema of buttocks) Neurologic: patellar DTR's 2+ bilat, sensation intact no focal motor deficits Psychiatric: A+Ox3, euthymic affect Orientation: cooperative Lymphatic: no cervical or axillary lymphadenopathy no inguinal lymphadenopathy Results & Data Laboratory Results Short CBC 09/05/18 09/05/18 Range/Units 16:35 17:08 WBC Cancelled 13.04 H Hgb Cancelled 9.6 L Hct Cancelled 29.0 L Plt Count Cancelled 563 H BMP 09/05/18 09/05/18 09/06/18 15:42 16:35 07:40 Sodium 137 142 Potassium 2.6 L 2.9 L Chloride 101 105 Carbon Dioxide 34 H 33 H BUN 5 L 6 L Creatinine 0.84 0.67 Glucose 64 L 87 Calcium 8.6 8.1 L Liver Function 09/05/18 09/05/18 Range/Units 15:42 16:35 Total Bilirubin 0.5 (0.2-1) mg/dl AST 10 L (15-37) U/L ALT 10 L (12-78) U/L Alkaline Phosphatase 90 (45-117) U/L Albumin 3.2 L (3.4-5.0) gm/dl Diagnostic Findings Microbiology 09/05/18 17:00 Buttock Gram Stain - Final CT SCAN OF THE PELVIS WITH IV CONTRAST CLINICAL HISTORY: Gluteal cleft abscess. COMPARISON STUDY: Pelvic CT dated 06/28/2018. TECHNIQUE: Following the IV administration of 94 cc of Optiray 320, CT scan of the pelvis is performed from the pelvic inlet to the proximal femora. Images are reviewed in the axial, sagittal, and coronal planes. IV contrast was administ ered without complication. A dose lowering technique was utilized adhering to the principles of ALARA. CT DOSE: 274.67 mGy.cm FINDINGS: The bladder, prostate, and seminal vesicles are normal in appearance. There is no free fluid in the pelvis. There is no pelvic sidewall lymphadenopathy. Mildly enlarged bilateral inguinal lymph nodes measure up to 1.7 cm in short axis and are likely on a reactive basis. The perianal soft tissues are normal in appearance. The visualized loops of small bowel and colon are normal in caliber. A normal appendix is identified. There is age advanced atherosclerotic calcification of the iliac arteries. The iliac arteries are patent. The bony pelvis is intact. No lytic or blastic lesion is seen. The regional musculature is normal and symmetric. There is extensive soft tissue induration of the gluteal and infragluteal soft tissues with overlying dermal thickening. There is phlegmonous change with a complex/multiloculated collection identified within the right buttock deep to the marker at the site of interest. This is best seen on image #290 and measures approximately 3 x 8 x 2 cm in maximum dimension. Phlegmonous change and a collection is also identified within the left buttock at the same level. This measures approximately 2 x 1.5 x 3.5 cm as seen on image #277. IMPRESSION: 1. There is soft tissue induration/inflammation with overlying dermal thickening seen involving the bilateral gluteal and infragluteal soft tissues. The appearance is typical for cellulitis. 2. There are multiloculated fluid collections identified within the buttock bi laterally as detailed above consistent with abscesses. This has worsened as compared 06/28/2018. 3. This does not involve the perianal soft tissues. 4. The pelvic viscera is normal in appearance. 5. Mildly enlarged bilateral inguinal lymph nodes are nonspecific and likely on a reactive basis. Clinical correlation will be required. Dictated: 09/05/2018 5:57 PM Transcribed: 09/05/2018 6:28 PM Lynn [id number] [id number] Electronically signed by: Rico Bruce M.D. 09/05/2018 6:29 PM Dictated: 09/05/18 [id number]
[2018-09-06] MEDS ORDERED: PIPERACILLIN/TAZOBACTAM 3.375 GM in DEXTROSE 5% 100 ML IV ONE (11:00)
[2018-09-06] MEDS: HYDROCODONE/ACETAMOPHEN 5/325MG TAB PO PRN (13:48)
--- NOTE | 2018-09-06 15:48 | Hospitalist Progress Note ---
Date of Service September 06, 2018 Assessment & Plan (1) Abscess of buttock: Refused to go for surgical debridement by Dr. Valladares Discussed with pt aout the risk such as worsening infiction, sepsis and ID on board recommended to d/c [place] Started on Zosyn IV Continue pain control daily wound care Blood cx pending Would cx positive for beta hemolytic strep, will follow up final cx continue monitor (2) Hypokalemia: K 2.9 K replaced Monitor BMP (3) Anemia: Mostly related to buttock drainage abscess Hgb 9.6 today Stable monitor CBC (4) Paranoid schizophrenia: continue lexapro Stable (5) Tobacco use disorder: Counseling on smoking cessation (6) DVT prophylaxis: Ambulates/SCDs Disposition Will discharge once medically stable Subjective Pt was seen and examined Lying in bed with no distress Pt refused to get I&D surgery for the abscess of buttock I explained to patient that he needs I&D done to drain the abscess He said that the area is draining now and rather let it drain without any procedure Talked Dr. Valladares who transferred pt under medicine service Pt denies any chest pain, palpitation, dizziness and SOB Physical Exam Physical Exam: General- No acute distress Head- atraumatic Eyes- PERRL, EOMI, ENT- oropharynx clear Neck- supple, no JVD Lungs- clear to auscultation Heart- regular rhythm; no murmur Abdomen- normal bowel sounds, soft, nontender Extremities- no calf tenderness Neuro- alert, oriented x 3; PERRL, EOMI; no facial palsy; no dysarthria - +sinus tract, buttock induration, + drainage Results & Data Vital Signs (Past 12 Hours) Vital Signs Temp Pulse Pulse Resp BP Pulse Ox 09/06/18 15:24 65 96/52 L 94 09/06/18 15:16 36.6 C 65 17 87/43 L 93 09/06/18 08:06 36.7 C 70 16 100/62 92
--- NOTE | 2018-09-06 15:49 | Emergency Department Note ---
History of Present Illness General Chief complaint: Skin Problem Stated complaint: RECURRENT PARARECTALABCESS Time Seen by Provider: 09/05/18 14:59 History of Present Illness Maximum Pain Intensity: 6 This is a 38-year-old male presenting to the emergency department for evaluation of perirectal abscess worsening over the past 5 days. Evidently the patient has had these in the past and is having oozing and drainage from his buttocks. The patient does not report fever or chills. He is not diabetic. He rates his discomfort a dull, nonradiating 6/10. He is unable to sit because of his pain. He is able to eat, drink, use the bathroom as normal. No chest or abdominal pains. He has not taken anything [id number] for his discomfort. Home Medications Home Medications Medication Instructions Recorded Confirmed Type escitalopram 10 mg tablet 10 mg PO QPM tab 01/17/18 09/05/18 History hydroxyzine HCl 50 mg tablet 50 mg PO HS PRN 01/17/18 09/05/18 History olanzapine 10 mg tablet 10 mg PO QPM tab 01/17/18 09/05/18 History Allergies Allergy/AdvReac Type Severity Reaction Status Date / Time Penicillins Allergy Unknown Unknown Verified 09/06/18 08:52 Past Med/Surg History Medical History Perianal abscess (Acute) Perirectal abscess (Acute) Depression (Chronic) Paranoid schizophrenia (Chronic) Tobacco use disorder (Chronic) Surgical History History of incision and drainage Family History Other No pertinent family history Social History Preferred Language: Maldivian Communication Ability: Effective Daycare Provider Required: No Beliefs That Will Affect Care: None marital status: Current Living Situation: Other Current Living Situation Comment: room mates Other Information That Helps Us Care for You: No Feels Safe at Home: Yes Safety Concerns: Feels Safe At This Time Smoking Status: Current every day smoker Tobacco Type: cigarettes Do You Dip or Chew Tobacco: No Second Hand Exposure: Yes Tobacco Cessation Education Requested by Patient: No Hx Alcohol Use: Yes Hx Substance Use: No Review of Systems A total of 10 systems reviewed and were otherwise negative Physical Exam Vital Signs Vital Signs - 24 hr 09/05/18 16:29 09/05/18 17:30 09/05/18 18:42 Temperature Temperature Source Pulse Rate Pulse Rate [Apical] Pulse Rate [Left Finger] 85 80 81 Pulse Rhythm [Apical] Pulse Rhythm [Left Finger] Pulse Strength [Apical] Pulse Strength [Left Finger] Respiratory Rate 12 15 12 Respiratory Effort / Characteristics Non-Labored Non-Labored Non-Labored Respiratory Depth Normal Normal Normal Respiratory Pattern Regular Regular Regular Blood Pressure Blood Pressure [Left Arm] 122/71 122/80 120/72 Blood Pressure Mean [Left Arm] 88 94 88 Blood Pressure Position [Left Arm] Pulse Oximetry 100 98 98 Oxygen Delivery Method Room Air Room Air Room Air 09/05/18 19:40 09/05/18 20:10 09/05/18 21:06 Temperature 37.6 C H Temperature Source Oral Pulse Rate 86 Pulse Rate [Apical] Pulse Rate [Left Finger] 88 97 H Pulse Rhythm [Apical] Pulse Rhythm [Left Finger] Regular Pulse Strength [Apical] Pulse Strength [Left Finger] Normal Respiratory Rate 18 14 18 Respiratory Effort / Characteristics Non-Labored Spontaneous Normal for Patient Respiratory Depth Normal Respiratory Pattern Regular Blood Pressure 121/78 Blood Pressure [Left Arm] 110/79 Blood Pressure Mean [Left Arm] 89 Blood Pressure Position [Left Arm] Pulse Oximetry 96 97 95 Oxygen Delivery Method Room Air Room Air Room Air 09/05/18 23:46 09/06/18 08:06 09/06/18 15:16 Temperature 36.6 C 36.7 C 36.6 C Temperature Source Oral Oral Oral Pulse Rate Pulse Rate [Apical] 70 Pulse Rate [Left Finger] 95 H 65 Pulse Rhythm [Apical] Regular Pulse Rhythm [Left Finger] Pulse Strength [Apical] Normal Pulse Strength [Left Finger] Respiratory Rate 14 16 17 Respiratory Effort / Characteristics Non-Labored Spontaneous Respiratory Depth Normal Normal Respiratory Pattern Regular Blood Pressure Blood Pressure [Left Arm] 100/63 100/62 87/43 L Blood Pressure Mean [Left Arm] 75 74 57 Blood Pressure Position [Left Arm] Lying Lying Lying Pulse Oximetry 95 92 93 Oxygen Delivery Method Room Air Room Air Room Air 09/06/18 15:24 Temperature Temperature Source Pulse Rate Pulse Rate [Apical] Pulse Rate [Left Finger] 65 Pulse Rhythm [Apical] Pulse Rhythm [Left Finger] Pulse Strength [Apical] Pulse Strength [Left Finger] Respiratory Rate Respiratory Effort / Characteristics Respiratory Depth Respiratory Pattern Blood Pressure Blood Pressure [Left Arm] 96/52 L Blood Pressure Mean [Left Arm] 66 Blood Pressure Position [Left Arm] Lying Pulse Oximetry 94 Oxygen Delivery Method Room Air VITALS: Vitals are noted on the nurse's note and reviewed by myself. Vital signs stable. GENERAL: Well-developed, well-nourished, black male who appears mildly to moderately uncomfortable secondary to his stated complaint. He is laying on his right side in his ER bed, HEAD: Normocephalic atraumatic. EYES: Pupils equal round and reactive to light and accommodation. Conjunctivae without injection, sclerae without icterus. Extraocular movements intact. NOSE: Patent, turbinates without inflammation or discharge. NECK: Supple without nuchal rigidity. No lymphadenopathy. No thyromegaly. Cervical spine is nontender. HEART: Regular rate and rhythm without murmurs gallops or rubs. LUNGS: Clear to auscultation bilaterally without wheezes, rales or rhonchi. No retractions or accessory muscle use. ABDOMEN: Positive normal bowel sounds x 4. Soft, nontender, without masses or organomegaly. No guarding or rebound tenderness. MUSCULOSKELETAL: No muscle atrophy, erythema, or edema noted. Full range of motion in all extremities. NEURO: Patient was alert and oriented to person place and time. CN II through XII grossly intact. SKIN: The skin was with diffuse erythema across the bilateral tissue of the gluteus. The right side is with 4 open oozing areas with purulent material which was cultured and sent to the lab. The left side is with one dominant area of oozing. Each of these seems to represent abscess with cellulitis measuring at least 18 x 10 cm in dimension. There is no distinct pilonidal abscess or rectal abscess. Course Administered Medications Hydrocodone Bitart/Acetaminophen ([place] 5/325) 2 tab PO [id number] PRN PRN Reason: Pain Stop: 09/19/18 19:31 Last Admin: 09/06/18 13:48 Dose: 2 tab Documented by: [id number] Admin: 09/05/18 20:57 Dose: 2 tab Documented by: [id number] Hydromorphone HCl (Dilaudid) 0.5 mg IV Q3HWA PRN PRN Reason: Pain Stop: 09/19/18 21:43 Last Admin: 09/06/18 05:57 Dose: 0.5 mg Documented by: [id number] Olanzapine (Zyprexa) 10 mg PO [facility] Stop: 10/05/18 23:49 Last Admin: 09/06/18 00:18 Dose: 10 mg Documented by: [id number] Discontinued Medications Escitalopram Oxalate (Lexapro) 10 mg PO [facility] Stop: 10/05/18 23:49 Last Admin: 09/06/18 01:23 Dose: Not Given Documented by: [id number] Escitalopram Oxalate (Lexapro) 10 mg PO NOW STA Stop: 09/06/18 00:11 Last Admin: 09/06/18 00:20 Dose: 10 mg Documented by: [id number] Fentanyl Citrate (Fentanyl Citrate) 75 mcg IV NOW ONE Stop: 09/05/18 15:17 Last Admin: 09/05/18 16:30 Dose: 75 mcg Documented by: [id number] Ceftriaxone Sodium (Rocephin) 1,000 mg in 50 mls @ 100 mls/hr IV NOW STA Stop: 09/05/18 15:50 Last Infusion: 09/05/18 17:11 Dose: 0 mls/hr Documented by: [id number] Admin: 09/05/18 16:32 Dose: 100 mls/hr Documented by: [id number] Metronidazole (Flagyl) 500 mg in 100 mls @ 100 mls/hr IV NOW STA Stop: 09/05/18 20:01 Last Infusion: 09/05/18 21:37 Dose: 0 mls/hr Documented by: [id number] Admin: 09/05/18 19:31 Dose: 100 mls/hr Documented by: [id number] Vancomycin HCl 1,750 mg/ (Sodium Chloride) 535 mls @ 200 mls/hr IV NOW ONE Stop: 09/05/18 22:20 Last Infusion: 09/05/18 23:38 Dose: 0 mls/hr Documented by: [id number] Admin: 09/05/18 20:57 Dose: 200 mls/hr Documented by: [id number] Potassium Chloride 40 meq/ (Sodium Chloride) 1,020 mls @ 80 mls/hr IV [id number] CORNELIUS Stop: 09/06/18 11:29 Last Infusion: 09/06/18 11:09 Dose: 0 mls/hr Documented by: [id number] Infusion: 09/06/18 06:09 Dose: 80 mls/hr Documented by: [id number] Admin: 09/05/18 23:58 Dose: 80 mls/hr Documented by: [id number] Vancomycin HCl 1,250 mg/ (Sodium Chloride) 275 mls @ 125 mls/hr IV Q8H CORNELIUS Stop: 09/16/18 04:59 Last Infusion: 09/06/18 07:48 Dose: 0 mls/hr Documented by: [id number] Admin: 09/06/18 05:54 Dose: 125 mls/hr Documented by: [id number] Potassium Chloride (K Tylor / Wtr) 10 meq in 100 mls @ 100 mls/hr IV Q1H CORNELIUS Stop: 09/06/18 12:59 Last Infusion: 09/06/18 13:54 Dose: 0 mls/hr Documented by: [id number] Admin: 09/06/18 12:56 Dose: 100 mls/hr Documented by: [id number] Infusion: 09/06/18 12:38 Dose: 0 mls/hr Documented by: [id number] Admin: 09/06/18 11:45 Dose: 100 mls/hr Documented by: [id number] Infusion: 09/06/18 11:45 Dose: 0 mls/hr Documented by: [id number] Admin: 09/06/18 10:46 Dose: 100 mls/hr Documented by: [id number] Infusion: 09/06/18 10:46 Dose: 0 mls/hr Documented by: [id number] Admin: 09/06/18 09:53 Dose: 100 mls/hr Documented by: [id number] Piperacillin Sod/Tazobactam (Sod 3.375 gm/ Dextrose) 115 mls @ 230 mls/hr IV NOW ONE; Protocol Stop: 09/06/18 11:29 Last Infusion: 09/06/18 12:20 Dose: 0 mls/hr Documented by: [id number] Admin: 09/06/18 11:49 Dose: 230 mls/hr Documented by: [id number] Ioversol (Optiray 320 100ml) 94 ml IV ONCE PRN PRN Reason: Interaction Checking Stop: 09/09/18 17:41 Last Admin: 09/05/18 17:43 Dose: 94 ml Documented by: [id number] Potassium Chloride (Klor-Con M20) 40 meq PO NOW STA Stop: 09/05/18 22:42 Last Admin: 09/05/18 23:58 Dose: 40 meq Documented by: [id number] Potassium Chloride (Klor-Con M20) 40 meq PO ONE ONE Stop: 09/06/18 02:01 Last Admin: 09/06/18 03:12 Dose: Not Given Documented by: [id number] Medical Decision Making Differential Diagnosis Differential diagnosis includes: Etiologies such as cellulitis, abscess, osteomyelitis, MRSA infection, DVT, necrotizing fasciitis, dermatitis, drug eruption, as well as others were entertained Laboratory Data Result diagrams: 09/05/18 17:08 09/06/18 07:40 Lab Results 09/05/18 09/05/18 09/05/18 Range/Units 15:42 16:23 16:35 WBC Cancelled RBC Cancelled Hgb Cancelled Hct Cancelled MCV Cancelled MCH Cancelled MCHC Cancelled RDW Std Deviation Cancelled RDW Coeff of Fausto Cancelled Plt Count Cancelled MPV Cancelled Immature Gran % (Auto) Cancelled Neut % (Auto) Cancelled Lymph % (Auto) Cancelled [place] % (Auto) Cancelled Eos % (Auto) Cancelled Baso % (Auto) Cancelled Immature Gran # (Auto) Cancelled Neut # (Auto) Cancelled Lymph # (Auto) Cancelled [place] # (Auto) Cancelled Eos # (Auto) Cancelled Baso # (Auto) Cancelled Absolute Nucleated RBC Cancelled Nucleated RBC % (auto) Cancelled Neutrophils % (Manual) Cancelled Band Neutrophils % Cancelled Lymphocytes % (Manual) Cancelled Prolymphocyte % Cancelled Reactive Lymphs % (Man) Cancelled Monocytes % (Manual) Cancelled Eosinophils % (Manual) Cancelled Basophils % (Manual) Cancelled Metamyelocytes % (Man) Cancelled Myelocytes % (Man) Cancelled Promyelocytes % (Man) Cancelled Blast Cells % (Manual) Cancelled Plasma Cell % (Manual) Cancelled Other Cells % Cancelled Nucleated RBC % Cancelled Neutrophils # (Manual) Cancelled Band Neutrophils # Cancelled Total Absolute Neuts Cancelled Lymphocytes # (Manual) Cancelled Prolymphocyte # Cancelled Reactive Lymphs # Cancelled Total Abs Lymphocytes Cancelled Monocytes # (Manual) Cancelled Eosinophils # (Manual) Cancelled Basophils # (Manual) Cancelled Metamyelocytes # (Man) Cancelled Myelocytes # (Manual) Cancelled Promyelocytes # (Man) Cancelled Blast Cells # (Man) Cancelled Plasma Cell # (Manual) Cancelled Other Cells # Cancelled Nucleated RBCs # (Man) Cancelled Hypersegmented Neuts Cancelled Hyposegmented Neuts Cancelled Hypogranular Neuts Cancelled Large Granular Lymphs Cancelled # Lrg Granular Lymphs Cancelled Hairy Cells Cancelled Smudge Cells Cancelled Toxic Granulation Cancelled Toxic Vacuolation Cancelled Dohle Bodies Cancelled Yobani Rods Cancelled Platelet Estimate Cancelled Hypogranular Platelets Cancelled Clumped Platelets Cancelled Giant Platelets Cancelled Platelet Satelliting Cancelled RBC Morphology Cancelled Polychromasia Cancelled Hypochromasia Cancelled Poikilocytosis Cancelled Basophilic Stippling Cancelled Anisocytosis Cancelled Microcytosis Cancelled Macrocytosis Cancelled Spherocytes Cancelled Pappenheimer Bodies Cancelled Sickle Cells Cancelled Target Cells Cancelled Tear Drop Cells Cancelled Ovalocytes Cancelled Stomatocytes Cancelled Webb-Cresbard Bodies Cancelled Echinocytes Cancelled Acanthocytes (Spur) Cancelled Rouleaux Cancelled RBC Agglutinates Cancelled Schistocytes Cancelled RBC Morph Comment Cancelled Sezary Cell Cancelled Sodium 137 (136-145) mmol/L Potassium (3.5-5.1) mmol/L Chloride 101 (98-107) mmol/L Carbon Dioxide 34 H (21-32) mmol/L Anion Gap 2.0 L (3-11) BUN 5 L (7-18) mg/dl Creatinine 0.84 (0.6-1.4) mg/dl Est Cr Clr Drug Dosing 129.6 ml/min Est GFR ( Amer) 127.8 Est GFR (Non-Af Amer) 110.3 BUN/Creatinine Ratio 6.3 L (10-20) Glucose 64 L (70-99) mg/dl Lactate 1.6 (0.4-2.0) mmol/L Calcium 8.6 (8.5-10.1) mg/dl Magnesium (1.8-2.4) mg/dl Iron (35-175) mcg/dl TIBC (250-450) mcg/dl Transferrin (200-360) mg/dl Ferritin (8-388) ng/ml Total Bilirubin 0.5 (0.2-1) mg/dl AST (15-37) U/L ALT 10 L (12-78) U/L Alkaline Phosphatase 90 (45-117) U/L Total Protein 8.3 H (6.4-8.2) gm/dl Albumin 3.2 L (3.4-5.0) gm/dl Globulin 5.1 H (2.5-4.0) gm/dl Albumin/Globulin Ratio 0.6 L (0.9-2) Vitamin B12 (211-911) pg/ml Folate (>5.38) ng/ml 09/05/18 09/05/18 09/05/18 Range/Units 16:35 17:08 17:08 WBC 13.04 H RBC 2.72 L Hgb 9.6 L Hct 29.0 L MCV 106.6 H MCH 35.3 H MCHC 33.1 RDW Std Deviation 56.7 H RDW Coeff of Fausto 14.7 H Plt Count 563 H MPV 8.2 Immature Gran % (Auto) 0.3 Neut % (Auto) 72.7 Lymph % (Auto) 21.7 [place] % (Auto) 4.1 Eos % (Auto) 1.1 Baso % (Auto) 0.1 Immature Gran # (Auto) 0.04 H Neut # (Auto) 9.48 H Lymph # (Auto) 2.83 [place] # (Auto) 0.54 Eos # (Auto) 0.14 Baso # (Auto) 0.01 Absolute Nucleated RBC Nucleated RBC % (auto) Neutrophils % (Manual) Band Neutrophils % Lymphocytes % (Manual) Prolymphocyte % Reactive Lymphs % (Man) Monocytes % (Manual) Eosinophils % (Manual) Basophils % (Manual) Metamyelocytes % (Man) Myelocytes % (Man) Promyelocytes % (Man) Blast Cells % (Manual) Plasma Cell % (Manual) Other Cells % Nucleated RBC % Neutrophils # (Manual) Band Neutrophils # Total Absolute Neuts Lymphocytes # (Manual) Prolymphocyte # Reactive Lymphs # Total Abs Lymphocytes Monocytes # (Manual) Eosinophils # (Manual) Basophils # (Manual) Metamyelocytes # (Man) Myelocytes # (Manual) Promyelocytes # (Man) Blast Cells # (Man) Plasma Cell # (Manual) Other Cells # Nucleated RBCs # (Man) Hypersegmented Neuts Hyposegmented Neuts Hypogranular Neuts Large Granular Lymphs # Lrg Granular Lymphs Hairy Cells Smudge Cells Toxic Granulation Toxic Vacuolation Dohle Bodies Yobani Rods Platelet Estimate Hypogranular Platelets Clumped Platelets Giant Platelets Platelet Satelliting RBC Morphology Polychromasia Hypochromasia Poikilocytosis Basophilic Stippling Anisocytosis Microcytosis Macrocytosis Spherocytes Pappenheimer Bodies Sickle Cells Target Cells Tear Drop Cells Ovalocytes Stomatocytes Webb-Cresbard Bodies Echinocytes Acanthocytes (Spur) Rouleaux RBC Agglutinates Schistocytes RBC Morph Comment Sezary Cell Sodium (136-145) mmol/L Potassium 2.6 L (3.5-5.1) mmol/L Chloride (98-107) mmol/L Carbon Dioxide (21-32) mmol/L Anion Gap (3-11) BUN (7-18) mg/dl Creatinine (0.6-1.4) mg/dl Est Cr Clr Drug Dosing ml/min Est GFR ( Amer) Est GFR (Non-Af Amer) BUN/Creatinine Ratio (10-20) Glucose (70-99) mg/dl Lactate (0.4-2.0) mmol/L Calcium (8.5-10.1) mg/dl Magnesium 2.1 (1.8-2.4) mg/dl Iron (35-175) mcg/dl TIBC (250-450) mcg/dl Transferrin (200-360) mg/dl Ferritin (8-388) ng/ml Total Bilirubin (0.2-1) mg/dl AST 10 L (15-37) U/L ALT (12-78) U/L Alkaline Phosphatase (45-117) U/L Total Protein (6.4-8.2) gm/dl Albumin (3.4-5.0) gm/dl Globulin (2.5-4.0) gm/dl Albumin/Globulin Ratio (0.9-2) Vitamin B12 (211-911) pg/ml Folate (>5.38) ng/ml 09/06/18 09/06/18 Range/Units 07:40 07:40 WBC RBC Hgb Hct MCV MCH MCHC RDW Std Deviation RDW Coeff of Fausto Plt Count MPV Immature Gran % (Auto) Neut % (Auto) Lymph % (Auto) [place] % (Auto) Eos % (Auto) Baso % (Auto) Immature Gran # (Auto) Neut # (Auto) Lymph # (Auto) [place] # (Auto) Eos # (Auto) Baso # (Auto) Absolute Nucleated RBC Nucleated RBC % (auto) Neutrophils % (Manual) Band Neutrophils % Lymphocytes % (Manual) Prolymphocyte % Reactive Lymphs % (Man) Monocytes % (Manual) Eosinophils % (Manual) Basophils % (Manual) Metamyelocytes % (Man) Myelocytes % (Man) Promyelocytes % (Man) Blast Cells % (Manual) Plasma Cell % (Manual) Other Cells % Nucleated RBC % Neutrophils # (Manual) Band Neutrophils # Total Absolute Neuts Lymphocytes # (Manual) Prolymphocyte # Reactive Lymphs # Total Abs Lymphocytes Monocytes # (Manual) Eosinophils # (Manual) Basophils # (Manual) Metamyelocytes # (Man) Myelocytes # (Manual) Promyelocytes # (Man) Blast Cells # (Man) Plasma Cell # (Manual) Other Cells # Nucleated RBCs # (Man) Hypersegmented Neuts Hyposegmented Neuts Hypogranular Neuts Large Granular Lymphs # Lrg Granular Lymphs Hairy Cells Smudge Cells Toxic Granulation Toxic Vacuolation Dohle Bodies Yobani Rods Platelet Estimate Hypogranular Platelets Clumped Platelets Giant Platelets Platelet Satelliting RBC Morphology Polychromasia Hypochromasia Poikilocytosis Basophilic Stippling Anisocytosis Microcytosis Macrocytosis Spherocytes Pappenheimer Bodies Sickle Cells Target Cells Tear Drop Cells Ovalocytes Stomatocytes Webb-Cresbard Bodies Echinocytes Acanthocytes (Spur) Rouleaux RBC Agglutinates Schistocytes RBC Morph Comment Sezary Cell Sodium 142 (136-145) mmol/L Potassium 2.9 L (3.5-5.1) mmol/L Chloride 105 (98-107) mmol/L Carbon Dioxide 33 H (21-32) mmol/L Anion Gap 3.0 (3-11) BUN 6 L (7-18) mg/dl Creatinine 0.67 (0.6-1.4) mg/dl Est Cr Clr Drug Dosing 162.5 ml/min Est GFR ( Amer) 140.3 Est GFR (Non-Af Amer) 121.0 BUN/Creatinine Ratio 9.5 L (10-20) Glucose 87 (70-99) mg/dl Lactate (0.4-2.0) mmol/L Calcium 8.1 L (8.5-10.1) mg/dl Magnesium (1.8-2.4) mg/dl Iron 57 (35-175) mcg/dl TIBC 171 L (250-450) mcg/dl Transferrin 144 L (200-360) mg/dl Ferritin 102.3 (8-388) ng/ml Total Bilirubin (0.2-1) mg/dl AST (15-37) U/L ALT (12-78) U/L Alkaline Phosphatase (45-117) U/L Total Protein (6.4-8.2) gm/dl Albumin (3.4-5.0) gm/dl Globulin (2.5-4.0) gm/dl Albumin/Globulin Ratio (0.9-2) Vitamin B12 304 (211-911) pg/ml Folate 2.55 L (>5.38) ng/ml Imaging Data Radiologist's Impression: CT SCAN OF THE PELVIS WITH IV CONTRAST CLINICAL HISTORY: Gluteal cleft abscess. COMPARISON STUDY: Pelvic CT dated 06/28/2018. TECHNIQUE: Following the IV administration of 94 cc of Optiray 320, CT scan of the pelvis is performed from the pelvic inlet to the proximal femora. Images are reviewed in the axial, sagittal, and coronal planes. IV contrast was admini stered without complication. A dose lowering technique was utilized adhering to the principles of ALARA. CT DOSE: 274.67 mGy.cm FINDINGS: The bladder, prostate, and seminal vesicles are normal in appearance. There is no free fluid in the pelvis. There is no pelvic sidewall lymphadenopathy. Mildly enlarged bilateral inguinal lymph nodes measure up to 1.7 cm in short axis and are likely on a reactive basis. The perianal soft tissues are normal in appearance. The visualized loops of small bowel and colon are normal in caliber. A normal appendix is identified. There is age advanced atherosclerotic calcification of the iliac arteries. The iliac arteries are patent. The bony pelvis is intact. No lytic or blastic lesion is seen. The regional musculature is normal and symmetric. There is extensive soft tissue induration of the gluteal and infragluteal soft tissues with overlying dermal thickening. There is phlegmonous change with a complex/multiloculated collection identified within the right buttock deep to the marker at the site of interest. This is best seen on image #[id number] and measures approximately 3 x 8 x 2 cm in maximum dimension. Phlegmonous change and a collection is also identified within the left buttock at the same level. This measures approximately 2 x 1.5 x 3.5 cm as seen on image #277. IMPRESSION: 1. There is soft tissue induration/inflammation with overlying dermal thickening seen involving the bilateral gluteal and infragluteal soft tissues. The appearance is typical for cellulitis. 2. There are multiloculated fluid collections identified within the buttock bilaterally as detailed above consistent with abscesses. This has worsened as compared 06/28/2018. 3. This does not involve the perianal soft tissues. 4. The pelvic viscera is normal in appearance. 5. Mildly enlarged bilateral inguinal lymph nodes are nonspecific and likely on a reactive basis. Clinical correlation will be required. MDM Narrative Physical exam and history were performed. Nursing notes, EMR, and Medication List were personally reviewed. Patient appears to have diffuse abscess of his bilateral buttocks on examination. Evidently the patient has had similar symptoms like this in the past. IV access was established and labs were obtained. Blood and wound cultures were obtained. The patient was given IV Rocephin initially as he has tolerated this in the past and has an allergy to penicillin. A CT scan was performed to further assess the extent of his infection. The patient's blood work is as above and was reviewed. The patient does have an elevated white blood cell count of 13,000. He does not have a significant electrolyte imbalance. Lactic acid is negative. The patient CT scan was reviewed by myself and radiology as showing diffuse cellulitis with multiple abscesses. Due to the extent of the infection the case was discussed with my attending physician. The case was then discussed with the on-call surgeon, Dr. Valladares, who did evaluate the patient here in the emergency department. Recommendation is for surgical washout tomorrow, and the patient is amenable to this. I did discuss antibiotic coverage with the pharmacist, and will provide the patient with vancomycin and Flagyl pending culture results. The patient remained in stable condition throughout the remaining ER stay and was admitted to the floor. Please see the surgical team dictation for further patient course, plan, and disposition. The chart was completed utilizing [employer] Voice [employer]ognition Software. Grammatical errors, random word insertions, pronoun errors, and incomplete sentences are an occasional consequence of this system due to software limitations, ambient noise, and hardware issues. Any formal questions or concerns about the content, text, or information contained within the body of this dictation should be directly addressed to the provider for clarification. . Impression & Plan Abscess of buttock Discharge Plan Visit Data *Final* Discharge Date/Time: 09/05/18 20:10 Chief Complaint: Skin Problem Stated Complaint: RECURRENT PARARECTALABCESS ED Provider: Aleks Bryant ED Midlevel Provider: Erasto Garcia Discharge Problem: Abscess of buttock Patient Disposition: Admitted As Inpatient Discharge Instructions Interventions: ED Discharge Assessment Last Done: 09/05/18 20:10
[2018-09-06] MEDS: PIPERACILLIN/TAZOBACTAM 3.375 GM in DEXTROSE 5% 100 ML IV SCH (17:14)
[2018-09-06] MEDS ORDERED: VANCOMYCIN TROUGH ONE (20:30)
[2018-09-06] MEDS: ESCITALOPRAM OXALATE 10 MG TAB PO SCH (20:48)
[2018-09-07] MEDS: PIPERACILLIN/TAZOBACTAM 3.375 GM in DEXTROSE 5% 100 ML IV SCH ×4 (00:18→23:35)
[2018-09-07] MEDS: HYDROCODONE/ACETAMOPHEN 5/325MG TAB PO PRN ×4 (00:24→23:34)
[2018-09-07 07:11] LABS: Hematocrit (blood only) 25.4 % (42-52); Hemoglobin 8.2 g/dL (14.0-18.0); Mean Corpuscular Hgb Conc 32.3 g/dL (32-36); Mean Corpuscular Volume 108.5 fL (80-100); Mean Platelet Volume 8.1 fL (7.4-10.4); Platelet Count 539 K/uL (130-400); RDW Coefficient of Variation 14.6 % (11.5-14.5); RDW Standard Deviation 57.6 fL (36.4-46.3); Red Blood Count 2.34 M/uL (4.7-6.1); White Blood Count 8.57 K/uL (4.8-10.8)
[2018-09-07 07:39] LABS: BUN Creatinine Ratio 8.7 (10-20); Calcium 7.9 mg/dl (8.5-10.1); Creatinine Clr Calc Pharmacy 157.8 ml/min; Est GFR (African American) 138.6; Est GFR (Non-African American) 119.6
[2018-09-07] MEDS ORDERED: POTASSIUM CHLORIDE 20 MEQ TABCR PO STA (09:23)
[2018-09-07] MEDS: POTASSIUM CHLORIDE / WTR 10 MEQ/100 ML PLCT IV SCH ×2 (09:41→10:35)
[2018-09-07] MEDS: ESCITALOPRAM OXALATE 10 MG TAB PO SCH (20:26)
[2018-09-07] MEDS: OLANZapine 10 MG TAB PO SCH (20:26)
--- NOTE | 2018-09-07 20:58 | Hospitalist Progress Note ---
Date of Service September 07, 2018 Assessment & Plan (1) Abscess of buttock: Refused to go for surgical debridement by Dr. Valladares Discussed with pt aout the risk such as worsening infiction, sepsis and ID on board recommended to d/c [place] Continue pain control daily wound care Blood cx no growth Wound cx positive for beta hemolytic strep, will follow up final cx Continue IV Zosyn for now continue monitor (2) Hypokalemia: K 3 K replaced Monitor BMP (3) Anemia: Mostly related to buttock drainage abscess Hgb 9.6 today Stable monitor CBC (4) Paranoid schizophrenia: continue lexapro Stable (5) Tobacco use disorder: Counseling on smoking cessation (6) DVT prophylaxis: Ambulates/SCDs Disposition Will discharge once medically stable Subjective Pt was seen and examined Lying in bed with no distress Pt said that he feels fine Denies any new complaints Physical Exam Physical Exam: General- No acute distress Head- atraumatic Eyes- PERRL, EOMI, ENT- oropharynx clear Neck- supple, no JVD Lungs- clear to auscultation Heart- regular rhythm; no murmur Abdomen- normal bowel sounds, soft, nontender Extremities- no calf tenderness Neuro- alert, oriented x 3; PERRL, EOMI; no facial palsy; no dysarthria - +sinus tract, buttock induration, + drainage Results & Data Vital Signs (Past 12 Hours) Vital Signs Temp Pulse Resp BP Pulse Ox 09/07/18 15:16 36.8 C 78 17 96/64 L 96
[2018-09-08] MEDS: PIPERACILLIN/TAZOBACTAM 3.375 GM in DEXTROSE 5% 100 ML IV SCH ×2 (07:12→16:18)
[2018-09-08 08:14] LABS: Creatinine Clr Calc Pharmacy 143.2 ml/min; Est GFR (African American) 133.2; Est GFR (Non-African American) 114.9
[2018-09-08 09:14] LABS: Hematocrit (blood only) 26.2 % (42-52); Hemoglobin 8.4 g/dL (14.0-18.0); Mean Corpuscular Hgb Conc 32.1 g/dL (32-36); Mean Corpuscular Volume 108.3 fL (80-100); Mean Platelet Volume 8.2 fL (7.4-10.4); Platelet Count 590 K/uL (130-400); RDW Coefficient of Variation 14.8 % (11.5-14.5); RDW Standard Deviation 58.5 fL (36.4-46.3); Red Blood Count 2.42 M/uL (4.7-6.1)
[2018-09-08 09:29] LABS: BUN Creatinine Ratio 6.3 (10-20); Calcium 8.4 mg/dl (8.5-10.1); Creatinine Clr Calc Pharmacy 139.6 ml/min; Est GFR (African American) 131.8; Est GFR (Non-African American) 113.7; Potassium 3.1 mmol/L (3.5-5.1)
[2018-09-08] MEDS ORDERED: ONDANSETRON INJ 2 MG/ML 2 ML VIAL IV ONE (09:33)
[2018-09-08] MEDS ORDERED: ONDANSETRON INJ 2 MG/ML 2 ML VIAL ONE (09:37)
[2018-09-08] MEDS ORDERED: POTASSIUM CHLORIDE 20 MEQ TABCR PO STA (10:00)
[2018-09-08] MEDS ORDERED: POTASSIUM CHLORIDE / WTR 10 MEQ/100 ML PLCT IV ONE (10:30)
[2018-09-08] MEDS: HYDROCODONE/ACETAMOPHEN 5/325MG TAB PO PRN (16:17)
[2018-09-08] MEDS: ESCITALOPRAM OXALATE 10 MG TAB PO SCH (20:23)
[2018-09-08] MEDS: OLANZapine 10 MG TAB PO SCH (20:23)
--- NOTE | 2018-09-08 21:29 | Hospitalist Progress Note ---
Date of Service September 08, 2018 Assessment & Plan (1) Abscess of buttock: Refused to go for surgical debridement by Dr. Valladares Discussed with pt aout the risk such as worsening infiction, sepsis and ID on board recommended to d/c [place] Continue Zosyn IV Continue pain control daily wound care Blood cx no growth Would cx positive for streptoccocus species Will follow ID recommendation about final abx continue monitor (2) Hypokalemia: K 3.1 K replaced Monitor BMP (3) Anemia: Mostly related to buttock drainage abscess Hgb 8.4 today Stable monitor CBC (4) Paranoid schizophrenia: continue lexapro Stable (5) Tobacco use disorder: Counseling on smoking cessation (6) DVT prophylaxis: Ambulates/SCDs Disposition Will discharge once medically stable Subjective Pt was seen and examined Lying in bed with no distress Pt said that he feels fine Denies any chest pain, palpitation and SOB Physical Exam Physical Exam: General- No acute distress Head- atraumatic Eyes- PERRL, EOMI, ENT- oropharynx clear Neck- supple, no JVD Lungs- clear to auscultation Heart- regular rhythm; no murmur Abdomen- normal bowel sounds, soft, nontender Extremities- no calf tenderness Neuro- alert, oriented x 3; PERRL, EOMI; no facial palsy; no dysarthria - +sinus tract, buttock induration, + drainage Results & Data Vital Signs (Past 12 Hours) Vital Signs Temp Pulse Resp BP Pulse Ox 09/08/18 15:36 36.8 C 83 17 103/66 96
--- NOTE | 2018-09-08 22:47 | Infectious Disease Progress Nt ---
Date of Service September 08, 2018 Assessment & Plan (1) Abscess of buttock: Patient with buttock abscess with cultures growing Streptococcus, in need of surgical drainage but refusing. Patient to continue on current antibiotics. Will follow. (2) Streptococcal infection: Subjective Patient seen in follow-up for buttock abscess. Pain is better controlled, still with significant drainage. No fever or chills. Tolerating antibiotics without apparent difficulty. Cultures growing beta hemolytic strep. Review of Systems Review of Systems: All systems reviewed & are unremarkable except as noted in HPI & below Physical Exam Constitutional: WD/WN, vitals as above comfortable; no acute distress Eyes: PERRL, conjunctivae normal, anicteric sclerae ENMT: external ear and nose normal, oropharynx normal Neck: trachea midline, no thyromegaly neck nontender Respiratory: normal respiratory effort, lungs clear to auscultation normal percussion; does not use accessory muscles Cardiovascular: Rate/Rhythm: regular rate and regular rhythm Heart Sounds: normal S1 and normal S2; no gallop, no murmur and no cardiac rub Vessels: normal peripheral pulses; no JVD Gastrointestinal (Abdomen): normal bowel sounds, soft, nontender, no hepatosplenomegaly Musculoskeletal: no cyanosis or clubbing, extremities motor strength 5/5 Spine: thoracic spine normal to inspection and lumbar spine normal to inspection; no cervical spinal tenderness Skin: no rashes, warm and dry normal turgor and + fluctulance (Bilateral areas of drainage and erythema of buttocks) Neurologic: patellar DTR's 2+ bilat, sensation intact no focal motor deficits Psychiatric: A+Ox3, euthymic affect Orientation: cooperative Lymphatic: no cervical or axillary lymphadenopathy no inguinal lymphadenopathy Results & Data Vital Signs (Past 12 Hours) Vital Signs Temp Pulse Resp BP Pulse Ox 09/08/18 15:36 36.8 C 83 17 103/66 96 Laboratory Results Short CBC 09/08/18 Range/Units 07:16 WBC 8.40 (4.8-10.8) K/uL Hgb 8.4 L (14.0-18.0) g/dL Hct 26.2 L (42-52) % Plt Count 590 H (130-400) K/uL BMP 09/08/18 09/08/18 07:13 07:16 Sodium 140 Potassium 3.1 L Chloride 105 Carbon Dioxide 33 H BUN 5 L Creatinine 0.76 0.78 Glucose 77 Calcium 8.4 L Diagnostic Findings Microbiology 09/06/18 10:00 Buttock Gram Stain - Final 09/06/18 10:00 Buttock Aerobic and Anaerobic Culture - Preliminary Streptococcus constellatus 09/05/18 17:00 Buttock Gram Stain - Final 09/05/18 17:00 Buttock Wound Culture - Final Streptococcus constellatus 09/05/18 16:23 Blood Blood Culture - Preliminary No growth to date. 09/05/18 15:42 Blood Blood Culture - Preliminary No growth to date.
[2018-09-09] MEDS: PIPERACILLIN/TAZOBACTAM 3.375 GM in DEXTROSE 5% 100 ML IV SCH ×4 (00:24→23:29)
[2018-09-09] MEDS: HYDROCODONE/ACETAMOPHEN 5/325MG TAB PO PRN ×4 (00:27→20:28)
[2018-09-09 09:41] LABS: BUN Creatinine Ratio 7.3 (10-20); Calcium 8.2 mg/dl (8.5-10.1); Creatinine Clr Calc Pharmacy 153.3 ml/min; Est GFR (Non-African American) 118.2; Potassium 3.1 mmol/L (3.5-5.1)
[2018-09-09] MEDS ORDERED: POTASSIUM CHLORIDE 20 MEQ TABCR PO STA (17:48)
--- NOTE | 2018-09-09 19:23 | Hospitalist Progress Note ---
Date of Service September 09, 2018 Assessment & Plan (1) Abscess of buttock: Recurrent abscesses of bilateral buttocks. Admitted by General Surgery. I&D recommended, pt declined. Continue IV antibiotic therapy with piperacillin / tazobactam. (2) Hypokalemia: PO replacement. Follow. (3) Anemia: Hgb 9.6 at time of admission. Hgb yesterday = 8.4. Follow. Check prior work-up. (4) Paranoid schizophrenia: Continue olanzapine. (5) DVT prophylaxis: SCD's ordered. Ambulate. (6) Discharge planning issues: Anticipated discharge to home. Family Medicine follow-up with Dr. Agrawal. Subjective Recheck for abscesses of bilateral buttocks. Patient seen in his room around 1700. Continues to have drainage from abscesses. No fever or chills. No chest pain. No cough or shortness of breath. No nausea, vomiting, diarrhea. Review of Systems Review of Systems: As noted below. Physical Exam Constitutional: no acute distress Respiratory: no respiratory distress Auscultation: lungs clear to auscultation bilaterally Cardiovascular: Rate/Rhythm: regular rate and regular rhythm Vessels: no JVD Extremities: no calf tenderness and no edema Gastrointestinal (Abdomen): normal bowel sounds, soft, nontender, no hepatosplenomegaly Skin: no rashes, warm and dry Psychiatric: Orientation: alert and oriented x 3 Results & Data Vital Signs (Past 12 Hours) Vital Signs Temp Pulse Resp BP BP Pulse Ox 09/09/18 15:45 36.7 C 86 18 104/64 98 09/09/18 11:15 36.5 C 60 14 80/40 L 95 09/09/18 07:45 36.5 C 46 L 14 110/60 96 Laboratory Results Laboratory Results - last 24 hr 09/09/18 08:50 Sodium 142 Potassium 3.1 L Chloride 105 Carbon Dioxide 33 H Anion Gap 4.0 BUN 5 L Creatinine 0.71 Est Cr Clr Drug Dosing 153.3 Est GFR ( Amer) 137.0 Est GFR (Non-Af Amer) 118.2 BUN/Creatinine Ratio 7.3 L Glucose 72 Calcium 8.2 L
[2018-09-09] MEDS: ESCITALOPRAM OXALATE 10 MG TAB PO SCH (20:26)
[2018-09-09] MEDS: OLANZapine 10 MG TAB PO SCH (20:26)
[2018-09-09] MEDS: POTASSIUM CHLORIDE 20 MEQ TABCR PO SCH (22:34)
[2018-09-10 07:48] LABS: Hematocrit (blood only) 25.5 % (42-52); Hemoglobin 8.3 g/dL (14.0-18.0); Mean Corpuscular Hgb Conc 32.5 g/dL (32-36); Mean Corpuscular Volume 107.6 fL (80-100); Platelet Count 553 K/uL (130-400); RDW Coefficient of Variation 14.6 % (11.5-14.5); RDW Standard Deviation 57.1 fL (36.4-46.3); Red Blood Count 2.37 M/uL (4.7-6.1)
[2018-09-10 08:06] LABS: BUN Creatinine Ratio 7.9 (10-20); Creatinine Clr Calc Pharmacy 155.5 ml/min; Est GFR (African American) 137.8; Est GFR (Non-African American) 118.9; Potassium 3.3 mmol/L (3.5-5.1)
[2018-09-10] MEDS: PIPERACILLIN/TAZOBACTAM 3.375 GM in DEXTROSE 5% 100 ML IV SCH ×3 (08:41→23:24)
[2018-09-10] MEDS: HYDROCODONE/ACETAMOPHEN 5/325MG TAB PO PRN ×3 (08:41→23:29)
[2018-09-10] MEDS: POTASSIUM CHLORIDE 20 MEQ TABCR PO SCH ×2 (08:42→20:27)
--- NOTE | 2018-09-10 19:33 | Hospitalist Progress Note ---
Date of Service September 10, 2018 Assessment & Plan (1) Abscess of buttock: Recurrent abscesses of bilateral buttocks. Admitted by General Surgery. I&D recommended, pt declined. WBC 13,040 --> 8200. Continue IV antibiotic therapy with piperacillin / tazobactam. (2) Hypokalemia: Serum K 2.6 at time of admission, etiology uncertain. Receiving PO replacement. K today = 3.3. Follow. (3) Anemia: Hgb 9.6 at time of admission. Hgb today = 8.3. MCV = 107. RDW 57. Check Fe studies, B12, folate, TSH. Follow. (4) Paranoid schizophrenia: Continue olanzapine. (5) DVT prophylaxis: SCD's ordered. Ambulate. (6) Discharge planning issues: Anticipated discharge to home. Family Medicine follow-up with Dr. Agrawal. Subjective Recheck for abscesses of bilateral buttocks. Patient seen in his room around 1640. Overall, feels better. Continues to have drainage from abscesses. No fever or chills. No chest pain. No cough or shortness of breath. No nausea, vomiting, diarrhea. Review of systems as noted above. Physical Exam Constitutional: no acute distress Respiratory: no respiratory distress Auscultation: lungs clear to auscultation bilaterally Cardiovascular: Rate/Rhythm: regular rate and regular rhythm Vessels: no JVD Extremities: no calf tenderness and no edema Gastrointestinal (Abdomen): normal bowel sounds, soft, nontender, no hepatosplenomegaly Skin: no rashes, warm and dry Psychiatric: Orientation: alert and oriented x 3 Results & Data Vital Signs (Past 12 Hours) Vital Signs Temp Pulse Resp BP Pulse Ox 09/10/18 15:39 36.5 C 66 18 127/65 100
[2018-09-10] MEDS: ESCITALOPRAM OXALATE 10 MG TAB PO SCH (20:27)
[2018-09-10] MEDS: OLANZapine 10 MG TAB PO SCH (20:27)
[2018-09-11 06:29] LABS: Hematocrit (blood only) 25.1 % (42-52); Hemoglobin 8.2 g/dL (14.0-18.0); Mean Corpuscular Hgb Conc 32.7 g/dL (32-36); Mean Corpuscular Volume 106.4 fL (80-100); Mean Platelet Volume 8.1 fL (7.4-10.4); Platelet Count 513 K/uL (130-400); RDW Standard Deviation 56.8 fL (36.4-46.3); Red Blood Count 2.36 M/uL (4.7-6.1); White Blood Count 8.97 K/uL (4.8-10.8)
[2018-09-11 06:59] LABS: Potassium 3.6 mmol/L (3.5-5.1)
[2018-09-11] MEDS: PIPERACILLIN/TAZOBACTAM 3.375 GM in DEXTROSE 5% 100 ML IV SCH ×2 (07:05→16:15)
[2018-09-11] MEDS: POTASSIUM CHLORIDE 20 MEQ TABCR PO SCH ×2 (08:44→21:26)
[2018-09-11 09:11] LABS: Folate (Folic Acid) 23.24 ng/ml (>5.38)
--- NOTE | 2018-09-11 14:39 | Infectious Disease Progress Nt ---
Date of Service September 11, 2018 Assessment & Plan (1) Abscess of buttock: Patient with buttock abscess with cultures growing Streptococcus, in need of surgical drainage but refusing. Consider transitioning patient to oral antibiotics with Augmentin 875 mg twice daily, likely in the range of 2-3 weeks of oral antibiotics. Will follow. (2) Streptococcal infection: Subjective Patient seen in follow-up for buttock abscess. Pain is better controlled, still with significant drainage. No fever or chills. Tolerating antibiotics without apparent difficulty. Cultures growing Streptococcus constellatus. Review of Systems Review of Systems: All systems reviewed & are unremarkable except as noted in HPI & below Physical Exam Constitutional: WD/WN, vitals as above comfortable; no acute distress Eyes: PERRL, conjunctivae normal, anicteric sclerae ENMT: external ear and nose normal, oropharynx normal Neck: trachea midline, no thyromegaly neck nontender Respiratory: normal respiratory effort, lungs clear to auscultation normal percussion; does not use accessory muscles Cardiovascular: Rate/Rhythm: regular rate and regular rhythm Heart Sounds: normal S1 and normal S2; no gallop, no murmur and no cardiac rub Vessels: normal peripheral pulses; no JVD Gastrointestinal (Abdomen): normal bowel sounds, soft, nontender, no hepatosplenomegaly Musculoskeletal: no cyanosis or clubbing, extremities motor strength 5/5 Spine: thoracic spine normal to inspection and lumbar spine normal to inspection; no cervical spinal tenderness Skin: no rashes, warm and dry normal turgor and + fluctulance (Bilateral areas of drainage and erythema of buttocks) Neurologic: patellar DTR's 2+ bilat, sensation intact no focal motor deficits Psychiatric: A+Ox3, euthymic affect Orientation: cooperative Lymphatic: no cervical or axillary lymphadenopathy no inguinal lymphadenopathy Results & Data Vital Signs (Past 12 Hours) Vital Signs Temp Pulse Resp BP Pulse Ox 09/11/18 07:00 36.5 C 55 L 18 105/66 92 Laboratory Results Short CBC 09/11/18 Range/Units 06:13 WBC 8.97 (4.8-10.8) K/uL Hgb 8.2 L (14.0-18.0) g/dL Hct 25.1 L (42-52) % Plt Count 513 H (130-400) K/uL [facility] 09/11/18 06:13 Potassium 3.6 Diagnostic Findings Microbiology 09/06/18 10:00 Buttock Gram Stain - Final 09/06/18 10:00 Buttock Aerobic and Anaerobic Culture - Final Streptococcus constellatus 09/05/18 16:23 Blood Blood Culture - Final No growth 09/05/18 15:42 Blood Blood Culture - Final No growth 09/05/18 17:00 Buttock Gram Stain - Final 09/05/18 17:00 Buttock Wound Culture - Final Streptococcus constellatus
[2018-09-11] MEDS: HYDROCODONE/ACETAMOPHEN 5/325MG TAB PO PRN ×2 (16:14→21:28)
[2018-09-11] MEDS: ESCITALOPRAM OXALATE 10 MG TAB PO SCH (21:26)
[2018-09-11] MEDS: OLANZapine 10 MG TAB PO SCH (21:26)
--- NOTE | 2018-09-11 21:43 | Hospitalist Progress Note ---
Date of Service September 11, 2018 Assessment & Plan (1) Abscess of buttock: Recurrent abscesses of bilateral buttocks. Admitted by General Surgery. I&D recommended, pt declined. Received IV piperacillin/tazobactam. WBC 13,040 --> 8970. Abscesses examined today with the assistance of RN who has been following the patient. Persistent drainage, but less purulent. Decreased erythema. Continue IV antibiotic therapy with piperacillin / tazobactam with eventual transition to oral antibiotic therapy with amoxicillin/clavulanic acid. Concerned that patient will not do well without I&D and he was asked to reconsider surgical drainage. (2) Hypokalemia: Serum K 2.6 at time of admission, etiology uncertain. Receiving PO replacement. K today = 3.6. Follow. (3) Anemia: Hgb 9.6 at time of admission. Hgb today = 8.2. MCV = 107. RDW 57. Iron 57, TIBC 171, transferrin 144, ferritin 102, B12 340, folate 23, TSH 2.4. No overt GI bleeding. Will not check stools for occult blood at this time because of serosanguineous drainage from buttock wounds. Anemia could possibly be secondary to chronic infection/inflammation. Follow. (4) Paranoid schizophrenia: Continue olanzapine. (5) DVT prophylaxis: SCD's ordered. Ambulate. (6) Discharge planning issues: Anticipated discharge to home. Family Medicine follow-up with Dr. Agrawal. Subjective Recheck for abscesses of bilateral buttocks. Patient seen in his room around 1220. RN assisted with exam. Overall, feels better. Continues to have buttock pain and bloody drainage from abscesses. No fever or chills. No chest pain. No cough or shortness of breath. No nausea, vomiting, diarrhea. No urinary symptoms. Ambulating. Review of systems as noted above. Physical Exam Constitutional: no acute distress Respiratory: no respiratory distress Auscultation: lungs clear to auscultation bilaterally Cardiovascular: Rate/Rhythm: regular rate and regular rhythm Vessels: no JVD Extremities: no calf tenderness and no edema Gastrointestinal (Abdomen): normal bowel sounds, soft, nontender, no hepatosplenomegaly Skin: + wound (abscesses bilat buttocks, tender, serosanguinous drainage) Psychiatric: Orientation: alert and oriented x 3 Results & Data Vital Signs (Past 12 Hours) Vital Signs Temp Pulse Resp BP Pulse Ox 09/11/18 15:26 36.7 C 73 18 130/75 96 Laboratory Results Laboratory Results - last 24 hr 09/11/18 09/11/18 09/11/18 06:13 06:13 06:13 WBC 8.97 RBC 2.36 L Hgb 8.2 L Hct 25.1 L MCV 106.4 H MCH 34.7 H MCHC 32.7 RDW Std Deviation 56.8 H RDW Coeff of Fausto 15.0 H Plt Count 513 H MPV 8.1 Potassium 3.6 Vitamin B12 340 Folate 23.24 TSH 2.400
[2018-09-12] MEDS: PIPERACILLIN/TAZOBACTAM 3.375 GM in DEXTROSE 5% 100 ML IV SCH ×3 (00:51→15:09)
[2018-09-12] MEDS: POTASSIUM CHLORIDE 20 MEQ TABCR PO SCH (08:29)
[2018-09-12 08:48] LABS: Creatinine Clr Calc Pharmacy 136.1 ml/min; Est GFR (African American) 130.4; Est GFR (Non-African American) 112.5
[2018-09-12 08:54] LABS: Ferritin 102.8 ng/ml (8-388)
--- NOTE | 2018-09-12 17:22 | Hospitalist Progress Note ---
Date of Service September 12, 2018 Assessment & Plan (1) Abscess of buttock: Refused to go for surgical debridement by Dr. Valladares Discussed with pt about the risk such as worsening infection, sepsis and Blood cx no growth Wound cx positive for streptoccocus species ID on board recommended to continue IV antibiotic therapy with piperacillin / tazobactam, then transition to oral antibiotic therapy with amoxicillin/clavulanic acid. Pt listed as Penicillin allergies, in the hospital he has been on Zosyn IV for the last 7 days with no reaction Pt said that he think that he had a rash while on penicillin, but not sure (he asked his uncle and did not remember that) Case discussed with pharmacy and mentioned that if there was a true penicillin allergies, pt wiould have had a reaction with the Zosyn by now after he has been getting it for 7 days Will give the first dose of Augmentin in the hospital before discharge to monitor for any reaction I again advised pt to reconsider surgical drainage. Pt continues refusing surgical debridement and drainage Continue pain control Daily wound carer (2) Hypokalemia: K 3.6 yesterday K replaced Monitor BMP (3) Anemia: Anemia could possibly be secondary to chronic infection/inflammation. Will not check stools for occult blood at this time because of serosanguineous drainage from buttock wounds. Hgb 8.2 today monitor CBC (4) Paranoid schizophrenia: Continue olanzapine. Stable (5) Tobacco use disorder: Counseling on smoking cessation (6) DVT prophylaxis: Ambulates/SCDs Disposition Discharge today Subjective Pt was seen and examined Lying in bed with no distress watching moving in his computer Pt continues refusing surgical debridement bilateral buttocks abscess He said the drainage is less He said that it back to the regular drainage that has been doing on for year since last surgery He said that the pain improves Denies any chest pain, palpitation, dizziness, fever and SOB Physical Exam Physical Exam: General- No acute distress Head- atraumatic Eyes- PERRL, EOMI, ENT- oropharynx clear Neck- supple, no JVD Lungs- clear to auscultation Heart- regular rhythm; no murmur Abdomen- normal bowel sounds, soft, nontender Extremities- no calf tenderness Neuro- alert, oriented x 3; PERRL, EOMI; no facial palsy; no dysarthria - +sinus tract, buttock induration, + drainage Results & Data Vital Signs (Past 12 Hours) Vital Signs Temp Pulse Resp BP Pulse Ox 09/12/18 15:03 36.6 C 71 20 128/71 98 09/12/18 07:58 36.4 C L 55 L 18 125/68 95
[2018-09-12] MEDS ORDERED: AMOXICILLIN/CLAVULANATE 875 MG TAB PO SCH (17:35)
--- NOTE | 2018-09-12 17:53 | Infectious Disease Progress Nt ---
Date of Service September 12, 2018 Assessment & Plan (1) Abscess of buttock: Patient with buttock abscess with cultures growing Streptococcus, in need of surgical drainage but refusing. Consider transitioning patient to oral antibiotics with Augmentin 875 mg twice daily, likely in the range of 2-3 weeks of oral antibiotics. Will follow. (2) Streptococcal infection: Subjective Patient seen in follow-up for buttock abscess. Still with significant drainage. No fever. No other new complaints. Pain about 3 out of 10 in intensity Review of Systems Review of Systems: All systems reviewed & are unremarkable except as noted in HPI & below Physical Exam Constitutional: WD/WN, vitals as above comfortable; no acute distress Eyes: PERRL, conjunctivae normal, anicteric sclerae ENMT: external ear and nose normal, oropharynx normal Neck: trachea midline, no thyromegaly neck nontender Respiratory: normal respiratory effort, lungs clear to auscultation normal percussion; does not use accessory muscles Cardiovascular: Rate/Rhythm: regular rate and regular rhythm Heart Sounds: normal S1 and normal S2; no gallop, no murmur and no cardiac rub Vessels: normal peripheral pulses; no JVD Gastrointestinal (Abdomen): normal bowel sounds, soft, nontender, no hepatosplenomegaly Musculoskeletal: no cyanosis or clubbing, extremities motor strength 5/5 Spine: thoracic spine normal to inspection and lumbar spine normal to inspection; no cervical spinal tenderness Skin: no rashes, warm and dry normal turgor and + fluctulance (Bilateral areas of drainage and erythema of buttocks) Neurologic: patellar DTR's 2+ bilat, sensation intact no focal motor deficits Psychiatric: A+Ox3, euthymic affect Orientation: cooperative Lymphatic: no cervical or axillary lymphadenopathy no inguinal lymphadenopathy Results & Data Vital Signs (Past 12 Hours) Vital Signs Temp Pulse Resp BP Pulse Ox 09/12/18 15:03 36.6 C 71 20 128/71 98 09/12/18 07:58 36.4 C L 55 L 18 125/68 95 Laboratory Results Laboratory Results - last 48 hr 09/11/18 09/11/18 09/11/18 06:13 06:13 06:13 WBC 8.97 RBC 2.36 L Hgb 8.2 L Hct 25.1 L MCV 106.4 H MCH 34.7 H MCHC 32.7 RDW Std Deviation 56.8 H RDW Coeff of Fausto 15.0 H Plt Count 513 H MPV 8.1 Potassium 3.6 Creatinine Est Cr Clr Drug Dosing Est GFR ( Amer) Est GFR (Non-Af Amer) Iron Transferrin Transferrin % Sat Ferritin Vitamin B12 340 Folate 23.24 TSH 2.400 09/12/18 07:51 WBC RBC Hgb Hct MCV MCH MCHC RDW Std Deviation RDW Coeff of Fausto Plt Count MPV Potassium Creatinine 0.80 Est Cr Clr Drug Dosing 136.1 Est GFR ( Amer) 130.4 Est GFR (Non-Af Amer) 112.5 Iron 24 L Transferrin 160 L Transferrin % Sat 11 L Ferritin 102.8 Vitamin B12 Folate TSH Diagnostic Findings Microbiology 09/06/18 10:00 Buttock Gram Stain - Final 09/06/18 10:00 Buttock Aerobic and Anaerobic Culture - Final Streptococcus constellatus 09/05/18 16:23 Blood Blood Culture - Final No growth 09/05/18 15:42 Blood Blood Culture - Final No growth 09/05/18 17:00 Buttock Gram Stain - Final 09/05/18 17:00 Buttock Wound Culture - Final Streptococcus constellatus
--- NOTE | 2018-09-14 10:22 | Discharge Summary ---
Date of Service September 12, 2018 Admission HPI Per Admitting Provider This is a 38-year-old male who has a significant past medical history of paranoid schizophrenia, MDD, history of tobacco use, hidradenitis suppurativa who presents to [facility] secondary to buttock pain. In ED patient underwent CT scan which revealed enlarging abscesses which appeared to be in soft tissue of the buttock and not from perirectal or perianal abscesses. We have been consulted for medical management as patient is to undergo I&D of abscess on 09/06/[address] Valladares. Currently complains of 8 out of 10 buttock pain. Otherwise has no other complaints. Denies fever, chills, sweats, li ghtheadedness, dizziness, chest pain, shortness of breath, palpitations, nausea, vomiting, diarrhea, abdominal pain, change in bowel or urinary habits. His appetite has been normal. He currently just ate [facility] despite being on clear liquid diet. According to outpatient records and from Dr. Valladares's note he has had prior drainage procedures done in 2017 and 2018 with poor compliance and follow-up. He also has history of perirectal abscess requiring I&D back in 2007. Admission Exam Per Admitting Provider Gen: WD/WN, , M, NAD, lying in lateral decub position watching movie on laptop, flat affect, connversing easily Head: Normocephalic, Atraumatic Eyes: Sclera normal, no conjunctival injection, PERRLA, EOMI ENT: Gross hearing intact, normal pharynx, mucous membranes moist Neck: supple, no adenopathy, No JVD, no bruit, Resp: Clear to auscultation b/l, no wheeze, rales, rhonchi. 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 Extremities: No edema bilaterally Skin: warm, moist, no rash, negative turgor, cap refill < 2sec Neuro: Alert and oriented x 3, speech normal, good mood/affect, cran nerve 2-12 intact grossly : +sinus tract, buttock induration, + drainage Principal Diagnosis Abscess of buttock Hypokalemia Anemia Discharge Exam General- No acute distress Head- atraumatic Eyes- PERRL, EOMI, ENT- oropharynx clear Neck- supple, no JVD Lungs- clear to auscultation Heart- regular rhythm; no murmur Abdomen- normal bowel sounds, soft, nontender Extremities- no calf tenderness Neuro- alert, oriented x 3; PERRL, EOMI; no facial palsy; no dysarthria - +sinus tract, buttock induration, + drainage Discharge Data Allergies Allergy/AdvReac Type Severity Reaction Status Date / Time Penicillins Allergy Unknown Unknown Verified 09/06/18 08:52 Consultations 09/05/18 19:14 Consult General Surgery Stat 09/05/18 21:44 Consult Infectious Diseases Routine 09/06/18 08:13 Consult Hospitalist Routine Procedures Performed Operation Date: 09/06/18 08:30 Actual Procedures p Incision and Drainage General - Benja Valladares MD, FACS Ordered Studies 09/05/18 16:18 CT pelvis w/IV con only Stat CT SCAN OF THE PELVIS WITH IV CONTRAST CLINICAL HISTORY: Gluteal cleft abscess. COMPARISON STUDY: Pelvic CT dated 06/28/2018. TECHNIQUE: Following the IV administration of 94 cc of Optiray 320, CT scan of the pelvis is performed from the pelvic inlet to the proximal femora. Images are reviewed in the axial, sagittal, and coronal planes. IV contrast was administered without complication. A dose lowering technique was utilized adhering to the principles of ALARA. CT DOSE: 274.67 mGy.cm FINDINGS: The bladder, prostate, and seminal vesicles are normal in appearance. There is no free fluid in the pelvis. There is no pelvic sidewall lymphadenopathy. Mildly enlarged bilateral inguinal lymph nodes measure up to 1.7 cm in short axis and are likely on a reactive basis. The perianal soft tissues are normal in appearance. The visualized loops of small bowel and colon are normal in caliber. A normal appendix is identified. There is age advanced atherosclerotic calcification of the iliac arteries. The iliac arteries are patent. The bony pelvis is intact. No lytic or blastic lesion is seen. The regional musculature is normal and symmetric. There is extensive soft tissue induration of the gluteal and infragluteal soft tissues with overlying dermal thickening. There is phlegmonous change with a complex/multiloculated collection identified within the right buttock deep to the marker at the site of interest. This is best seen on image #290 and measures approximately 3 x 8 x 2 cm in maximum dimension. Phlegmonous change and a collection is also identified within the left buttock at the same level. This measures approximately 2 x 1.5 x 3.5 cm as seen on image #277. IMPRESSION: 1. There is soft tissue induration/inflammation with overlying dermal thickening seen involving the bilateral gluteal and infragluteal soft tissues. The appearance is typical for cellulitis. 2. There are multiloculated fluid collections identified within the buttock bilaterally as detailed above consistent with abscesses. This has worsened as compared 06/28/2018. 3. This does not involve the perianal soft tissues. 4. The pelvic viscera is normal in appearance. 5. Mildly enlarged bilateral inguinal lymph nodes are nonspecific and likely on a reactive basis. Clinical correlation will be required. Dictated: 09/05/2018 5:57 PM Transcribed: 09/05/2018 6:28 PM Lynn [id number] [email or web address] Electronically signed by: Rico Bruce M.D. 09/05/2018 6:29 PM Hospital Course (1) Abscess of buttock: Refused to go for surgical debridement by Dr. Valladares Discussed with pt about the risk such as worsening infection, sepsis and Blood cx no growth Wound cx positive for streptoccocus species ID on board recommended to continue IV antibiotic therapy with piperacillin / tazobactam, then transition to oral antibiotic therapy with amoxicillin/clavulanic acid. Pt listed as Penicillin allergies, in the hospital he has been on Zosyn IV for the last 7 days with no reaction Pt said that he think that he had a rash while on penicillin, but not sure (he asked his uncle and did not remember that) Case discussed with pharmacy and mentioned that if there was a true penicillin allergies, pt wiould have had a reaction with the Zosyn by now after he has been getting it for 7 days Will give the first dose of Augmentin in the hospital before discharge to monitor for any reaction I again advised pt to reconsider surgical drainage. Pt continues refusing surgical debridement and drainage Continue pain control Daily wound carer (2) Hypokalemia: K 3.6 yesterday K replaced Monitor BMP (3) Anemia: Anemia could possibly be secondary to chronic infection/inflammation. Will not check stools for occult blood at this time because of serosanguineous drainage from buttock wounds. Hgb 8.2 today monitor CBC (4) Paranoid schizophrenia: Continue olanzapine. Stable (5) Tobacco use disorder: Counseling on smoking cessation (6) DVT prophylaxis: Ambulates/SCDs Disposition Discharge today Total Time Total Time Spent Total Time Spent (In Minutes): 35 minutes Total Time Includes: Examination of the Patient, Discharge Planning, Medication Reconciliation, Communication With Other Providers and Other Discharge Plan Discharge Items Patient Disposition: Home - Self-Care Reason For Visit: BUTTOCK ABSCESSES Discharge Diagnosis: Abscess of buttock Hypokalemia Anemia Discharge Goals: Decrease discomfort, Improve disease control, Improve function and Increase independence Activity: Resume your previous activity Activity Comment: As tolerated Non-emergency contact: Primary Care Provider and Surgeon Call non-emergency contact if: you have any medication questions, your symptoms worsen, your pain is worsening and your temperature is above 101 Follow-up/Referrals: Kenneth Agrawal DO [Primary Care Provider] - Diet: Regular Addtl Provider Instructions: Follow up with your primary care provider Dr. Agrawal on 09/18 @ 1:00 PM Follow up with surgery (Please call to schedule for the appointment) Follow up with Infectious disease Dr. Dunn (Please call to schedule for the appointment) Follow up with wound care Continue daily wound care Check CBC in 1 week to monitor hemoglobin Check BMP in 1 week week to monitor electrolytes Complete the course of the antibiotic Prescriptions: New potassium chloride [Klor-Con M20] 20 mEq Tablet,Er Particles/Crystals 20 meq PO BID Qty: 30 RF: 0 amoxicillin-pot clavulanate 875-125 mg Tablet 1 tab PO BIDM 14 Days Qty: 28 RF: 0 Stand-Alone Forms: [employer], [facility]/Other Patient Handouts: Amoxicillin Trihydrate Clavulanate Potassium Oral tablet Discharge Orders: Discharge Order (Routine); Ordered 09/12/18 Ordered By: Vandana Witt Admission Data Admit Date/Time: 09/05/18 18:58 Attending Provider: Vandana Witt Admit Provider: Benja Valladares Primary Care Provider: Kenneth Agrawal Other Providers: Gurinder Dunn ; Kimberly Govea ; Vandana Witt ; Jacinto Byrne ; Vikash Jimenez ; Liza Cannon ; Nisa Abel ; Madison Rooney ; Lai Contreras ; Carter Magana ; Jonathan Donohue ; Iker Jones ; Keesha Leija ; Rylie Soler ; Lupe Julio ; Osmar Elena ; Sidney Brady ; Elva Gambino ; Breonna Knott ; Sidney Hughes ; Benja Valladares Service: Surgical Services Other Interventions: Discharge Summary Assessment (RN) Last Done: 09/12/18 18:35 DC Date/Time DO NOT enter until pt leaves facility: 09/12/18 19:55
== END 2018-09-12 19:55 | disposition home or self-care (01) | DRG 603 ==
LOC: ED 14:32 → 3W 18:58 → SUATTDRO 18:58 → 3W 20:10

== ENCOUNTER 2019-03-12 18:55 | Inpatient (IN) ==
[2019-03-12 22:32] LABS: Basophils # (auto) 0.02 K/uL (0-0.2); Basophils % (auto) 0.2 %; Eosinophils # (auto) 0.11 K/uL (0-0.5); Eosinophils % (auto) 0.9 %; Hematocrit (blood only) 33.3 % (42-52); Hemoglobin 11.2 g/dL (14.0-18.0); Immature Granulocytes # (auto) 0.03 K/uL (0.00-0.02); Immature Granulocytes % (auto) 0.2 %; Lymphocytes # (auto) 2.56 K/uL (1.2-3.4); Lymphocytes % (auto) 20.4 %; Mean Corpuscular Hemoglobin 30.5 pg (25-34); Mean Corpuscular Hgb Conc 33.6 g/dL (32-36); Mean Corpuscular Volume 90.7 fL (80-100); Mean Platelet Volume 8.2 fL (7.4-10.4); Monocytes % (auto) 5.6 %; Neutrophils % (auto) 72.7 %; Platelet Count 576 K/uL (130-400); RDW Coefficient of Variation 13.5 % (11.5-14.5); RDW Standard Deviation 44.2 fL (36.4-46.3); Red Blood Count 3.67 M/uL (4.7-6.1); White Blood Count 12.52 K/uL (4.8-10.8)
[2019-03-12 22:41] LABS: iSTAT Creatinine 0.9 mg/dl (0.6-1.3); iSTAT Hemoglobin 11.6 g/dl (14.0-18.0); iSTAT Ionized Calcium 1.12 mmol/l (1.12-1.32); iSTAT Potassium 2.6 mEq/L (3.3-5.0)
[2019-03-12 22:42] LABS: INR 1.1 (0.9-1.1); Partial Thromboplastin Ratio 1.1; Partial Thromboplastin Time 30.6 Seconds (21.0-31.0); Prothrombin Time 11.1 Seconds (9.0-12.0)
--- NOTE | 2019-03-12 22:42 | Emergency Department Note ---
History of Present Illness General Chief complaint: Infection, Wound Stated complaint: PERIRECTAL ABCESS Source: patient Mode of arrival: ambulatory Limitations: no limitations History of Present Illness Maximum Pain Intensity: 6 HPI narrative: This 39-year-old male patient presents emergency department today, ambulatory, as a referral from his primary care provider. Patient states his PCP is Dr. Agrawal. He states he has a perirectal abscess which is been present since 2002. He states he was recently discharged from the hospital 1 month ago and was seeing his primary care provider as an outpatient for hospital follow-up. He states "he sent paperwork and told me to come to the hospital" when asked why he is here. I asked if he is having worsening pain or drainage from the abscess and he declines. He states it has been draining intermittently since 2002. The patient refuses to answer any further questions regarding the HPI and instead says multiple times "my doctor sent paperwork and that is why I am here". Home Medications Home Medications Medication Instructions Recorded Confirmed Type escitalopram 10 mg tablet 10 mg PO HS tab 01/17/18 03/12/19 History hydroxyzine HCl 50 mg tablet 50 mg PO HS PRN 01/17/18 03/12/19 History quetiapine 200 mg PO HS 01/20/19 03/12/19 History Allergies Allergy/AdvReac Type Severity Reaction Status Date / Time Penicillins Allergy Unknown HAPPENED Verified 03/12/19 21:58 A CHILD Past Med/Surg History Medical History Paranoid schizophrenia (Chronic) Perianal abscess (Acute) Perirectal abscess (Acute) Depression (Chronic) Tobacco use disorder (Chronic) Surgical History History of incision and drainage Family History Other No pertinent family history Social History Preferred Language: Guatemalan Communication Ability: Effective Senior Structural Engineer Required: No Beliefs That Will Affect Care: None marital status: Current Living Situation: Other Current Living Situation Comment: roommates Other Information That Helps Us Care for You: No Feels Safe at Home: Yes Safety Concerns: Feels Safe At This Time Smoking Status: Current every day smoker Tobacco Type: cigarettes ; Do You Dip or Chew Tobacco: No ; Second Hand Exposure: Yes ; Tobacco Cessation Education Requested by Patient: No Hx Alcohol Use: Yes Alcohol type: beer Hx Substance Use: No Review of Systems A total of 10 systems reviewed and were otherwise negative Physical Exam Vital Signs: Vital Signs - 24 hr 03/12/19 21:50 03/12/19 22:22 03/12/19 23:17 Pulse Rate [Finger ] 92 H 100 H Pulse Rhythm [Fing er] Regular Pulse Strength [Fi nger] Normal Respiratory Rate 18 16 Respiratory Effort / Characteristics Non-Labored Sponta neous Non-Labored Respiratory Depth Normal Normal Respiratory Patter n Regular Blood Pressure [Le ft Arm] 125/77 145/97 H Blood Pressure Cristin n [Left Arm] 93 113 Blood Pressure Pos ition [Left Arm] Lying Pulse Oximetry 97 98 98 Oxygen Delivery Me thod Room Air Room Air Room Air 03/13/19 01:05 03/13/19 02:30 Pulse Rate [Finger ] 79 74 Pulse Rhythm [Fing er] Regular Regular Pulse Strength [Fi nger] Normal Normal Respiratory Rate 16 16 Respiratory Effort / Characteristics Non-Labored Non-Labored Respiratory Depth Normal Normal Respiratory Patter n Regular Blood Pressure [Le ft Arm] 136/73 100/79 Blood Pressure Cristin n [Left Arm] 94 86 Blood Pressure Pos ition [Left Arm] Lying Lying Pulse Oximetry 99 96 Oxygen Delivery Me thod Room Air Room Air Physical Exam: VITALS: Vitals are noted on the nurse's note and reviewed by myself. Vital signs stable. GENERAL: This is a 39-year-old male, in no acute distress, nondiaphoretic, well- developed well-nourished. SKIN: Large area of indurationinduration with active purulent drainage noted on the left buttock and extending to the anus. The skin was otherwise without rashes, erythema, edema, or bruising. There is no tenting of the skin. Capillary refill less than 2 seconds. HEAD: Normocephalic atraumatic. NECK: Supple without nuchal rigidity. No lymphadenopathy. No thyromegaly. Cervical spine is nontender HEART: Regular rate and rhythm without murmurs gallops or rubs. LUNGS: Clear to auscultation bilaterally without wheezes, rales or rhonchi. No dullness to percussion. No retractions or accessory muscle use. ABDOMEN: Positive bowel sounds x 4. Soft, nontender, without masses or organomegaly. Boucher sign negative. No guarding or rebound tenderness. MUSCULOSKELETAL: No muscle atrophy, erythema, or edema noted. Full range of motion without joint tenderness in all extremities. No tenderness to palpation. Normal gait. Strength 5/5 throughout. NEURO: Patient was alert and oriented to person place and time. Normal sensation to light and sharp touch. No focal neurological deficits. Course The patient was seen and evaluated as above. IV access obtained, labs drawn. I was notified by the ED psychiatric major case detective regarding a signed 302 sent by the patient's PCP. Imaging performed and reviewed by myself and radiologist as noted. Labs reviewed by myself. Pt. medicated with 1L IV NSS and 10meq K rider. Previous medical records including most recent admission and PCP documentation. The patient was sent to his PCP by request of's ER staff and mental health major case detective to be evaluated for noncompliance with his care. He denied any SI or HI. There was worsening swelling and redness of the buttock area with purulent drainage. Patient admits to noncompliance with medications due to administration time. The [facility] staff had noted that the patient had not been changing his clothes or bathing and they noted fecal matter on the computer station and have witnessed him touching the wound and immediately touching other areas of the home. I discussed the findings with the patient at bedside. Recommended admission but offered transfer to tertiary care for surgical consultation/referral regarding the abscess with fistula. Pt. declines. I discussed the case with my attending. I discussed the case with Dr. Magana, [facility] [place]. He is familiar with the patient and improvement with conservative measures in the past. Did recommend initiation of ertapenem at this time. He will see and evaluate the patient. I did notify him of the 302 petition from the patient's PCP. This was placed on the patient's chart by Roddy, ED psychiatric major case detective. Please see hospitalist dictation regarding ongoing management care of this patient. Administered Medications Enoxaparin Sodium (Lovenox) 30 mg SQ QAM CORNELIUS Stop: 04/12/19 08:59 Last Admin: 03/13/19 09:24 Dose: 30 mg Documented by: [id number] Quetiapine Fumarate (Seroquel) 200 mg PO HS CORNELIUS Stop: 04/12/19 20:59 Last Admin: 03/13/19 20:38 Dose: 200 mg Documented by: [id number] Discontinued Medications Potassium Chloride (K Tylor / Wtr) 10 meq in 100 mls @ 100 mls/hr IV ONE ONE Stop: 03/13/19 00:06 Last Infusion: 03/13/19 00:58 Dose: 0 mls/hr Documented by: [id number] Admin: 03/12/19 23:16 Dose: 100 mls/hr Documented by: [id number] Sodium Chloride (Nss 1000ml) 1,000 mls @ 999 mls/hr IV .Q1H1M ONE Stop: 03/13/19 00:08 Last Infusion: 03/13/19 00:58 Dose: 0 mls/hr Documented by: [id number] Admin: 03/12/19 23:16 Dose: 999 mls/hr Documented by: [id number] Ertapenem (Invanz) 10 mls @ 2 mls/min IV NOW STA Stop: 03/13/19 01:21 Last Admin: 03/13/19 01:29 Dose: 2 mls/min Documented by: [id number] Magnesium Sulfate/Dextrose (Magnesium Sulfate / D5w) 1 gm in 100 mls @ 100 mls/hr IV ONE ONE Stop: 03/13/19 02:26 Last Infusion: 03/13/19 05:01 Dose: 0 mls/hr Documented by: [id number] Admin: 03/13/19 01:51 Dose: 100 mls/hr Documented by: [id number] Potassium Chloride 40 meq/ (Sodium Chloride) 1,020 mls @ 75 mls/hr IV .[id number] STA Stop: 03/13/19 15:02 Last Infusion: 03/13/19 16:15 Dose: 0 mls/hr Documented by: [id number] Infusion: 03/13/19 06:42 Dose: 75 mls/hr Documented by: [id number] Admin: 03/13/19 02:12 Dose: 75 mls/hr Documented by: [id number] Ioversol (Optiray 320 100ml) 100 ml IV ONCE PRN PRN Reason: Interaction Checking Stop: 03/16/19 22:45 Last Admin: 03/12/19 22:47 Dose: 93 ml Documented by: [id number] Potassium Chloride (Klor-Con M20) 40 meq PO NOW STA Stop: 03/13/19 01:27 Last Admin: 03/13/19 01:51 Dose: 40 meq Documented by: [id number] Potassium Chloride (Klor-Con M20) 50 meq PO NOW STA Stop: 03/13/19 03:09 Last Admin: 03/13/19 03:38 Dose: 50 meq Documented by: [id number] Medical Decision Making Differential Diagnosis + abscess of skin or subcutaneous tissue, + viral exanthem, + dermatophytosis, + urticaria, + herpes zoster, + allergic reaction to drug, + cellulitis, + eczema, + insect bites, + impetigo, + contact dermatitis, + cellulitis, + necrotizing fasciitis, + foreign body, + dermatitis and + drug eruption Medical Records Attestation: I reviewed the patient's medical records. Home Medications Current Medication List: was personally reviewed by me Laboratory Data Attestation: I reviewed the patient's lab results. Mild leukocytosis of 12.52. Anemia with hemoglobin of 11.2 and hematocrit of 33.3 has improved from previous labs performed last month. Elevated platelet count of 576. Coags normal. The patient is hypokalemic with a potassium of 2.5. He is also hyponatremic with a sodium of 135. Renal, hepatic function otherwise without significant abnormality. Magnesium 1.9. Lactate 1.6. Result diagrams: 03/13/19 05:47 03/13/19 05:47 Lab Results 03/12/19 03/12/19 03/12/19 Range/Units 22:22 22:22 22:22 WBC 12.52 H (4.8-10.8) K/uL RBC 3.67 L (4.7-6.1) M/uL Hgb 11.2 L (14.0-18.0) g/dL POC Hgb (14.0-18.0) g/dl Hct 33.3 L (42-52) % POC Hct (42-52) % MCV 90.7 (80-100) fL MCH 30.5 (25-34) pg MCHC 33.6 (32-36) g/dL RDW Std Deviation 44.2 (36.4-46.3) fL RDW Coeff of Fausto 13.5 (11.5-14.5) % Plt Count 576 H (130-400) K/uL MPV 8.2 (7.4-10.4) fL Immature Gran % (Auto) 0.2 % Neut % (Auto) 72.7 % Lymph % (Auto) 20.4 % [place] % (Auto) 5.6 % Eos % (Auto) 0.9 % Baso % (Auto) 0.2 % Immature Gran # (Auto) 0.03 H (0.00-0.02) K/uL Neut # (Auto) 9.10 H (1.4-6.5) K/uL Lymph # (Auto) 2.56 (1.2-3.4) K/uL [place] # (Auto) 0.70 H (0.11-0.59) K/uL Eos # (Auto) 0.11 (0-0.5) K/uL Baso # (Auto) 0.02 (0-0.2) K/uL PT 11.1 (9.0-12.0) Seconds INR 1.1 (0.9-1.1) APTT 30.6 (21.0-31.0) Seconds PTT Ratio 1.1 POC Sodium (135-144) mEq/L Sodium 135 L (136-145) mmol/L POC Potassium (3.3-5.0) mEq/L Potassium 2.5 L* (3.5-5.1) mmol/L POC Chloride (101-112) mEq/L Chloride 100 (98-107) mmol/L Carbon Dioxide 30 (21-32) mmol/L POC Total CO2 (24-31) mEq/l Anion Gap 5.0 (3-11) POC Anion Gap (16-25) mmol/L POC BUN (7-18) mg/dl BUN 7 (7-18) mg/dl Creatinine 0.98 (0.6-1.4) mg/dl POC Creatinine (0.6-1.3) mg/dl Est Cr Clr Drug Dosing 110.0 ml/min Est GFR ( Amer) 111.3 Est GFR (Non-Af Amer) 96.1 BUN/Creatinine Ratio 6.7 L (10-20) Glucose 100 H (70-99) mg/dl POC Glucose (other) (70-99) mg/dl Lactate (0.4-2.0) mmol/L Calcium 8.6 (8.5-10.1) mg/dl POC Ioniz Calcium Marianna (1.12-1.32) mmol/l Magnesium 1.9 (1.8-2.4) mg/dl Total Bilirubin 0.1 L (0.2-1) mg/dl AST 16 (15-37) U/L ALT 16 (12-78) U/L Alkaline Phosphatase 108 (45-117) U/L Total Protein 8.1 (6.4-8.2) gm/dl Albumin 3.4 (3.4-5.0) gm/dl Globulin 4.7 H (2.5-4.0) gm/dl Albumin/Globulin Ratio 0.7 L (0.9-2) 03/12/19 03/12/19 Range/Units 22:22 22:28 WBC (4.8-10.8) K/uL RBC (4.7-6.1) M/uL Hgb (14.0-18.0) g/dL POC Hgb 11.6 L (14.0-18.0) g/dl Hct (42-52) % POC Hct 34 L (42-52) % MCV (80-100) fL MCH (25-34) pg MCHC (32-36) g/dL RDW Std Deviation (36.4-46.3) fL RDW Coeff of Fausto (11.5-14.5) % Plt Count (130-400) K/uL MPV (7.4-10.4) fL Immature Gran % (Auto) % Neut % (Auto) % Lymph % (Auto) % [place] % (Auto) % Eos % (Auto) % Baso % (Auto) % Immature Gran # (Auto) (0.00-0.02) K/uL Neut # (Auto) (1.4-6.5) K/uL Lymph # (Auto) (1.2-3.4) K/uL [place] # (Auto) (0.11-0.59) K/uL Eos # (Auto) (0-0.5) K/uL Baso # (Auto) (0-0.2) K/uL PT (9.0-12.0) Seconds INR (0.9-1.1) APTT (21.0-31.0) Seconds PTT Ratio POC Sodium 139 (135-144) mEq/L Sodium (136-145) mmol/L POC Potassium 2.6 L (3.3-5.0) mEq/L Potassium (3.5-5.1) mmol/L POC Chloride 98 L (101-112) mEq/L Chloride (98-107) mmol/L Carbon Dioxide (21-32) mmol/L POC Total CO2 30 (24-31) mEq/l Anion Gap (3-11) POC Anion Gap 15.0 L (16-25) mmol/L POC BUN 5 L (7-18) mg/dl BUN (7-18) mg/dl Creatinine (0.6-1.4) mg/dl POC Creatinine 0.9 (0.6-1.3) mg/dl Est Cr Clr Drug Dosing ml/min Est GFR ( Amer) Est GFR (Non-Af Amer) BUN/Creatinine Ratio (10-20) Glucose (70-99) mg/dl POC Glucose (other) 101 H (70-99) mg/dl Lactate 1.6 (0.4-2.0) mmol/L Calcium (8.5-10.1) mg/dl POC Ioniz Calcium Marianna 1.12 (1.12-1.32) mmol/l Magnesium (1.8-2.4) mg/dl Total Bilirubin (0.2-1) mg/dl AST (15-37) U/L ALT (12-78) U/L Alkaline Phosphatase (45-117) U/L Total Protein (6.4-8.2) gm/dl Albumin (3.4-5.0) gm/dl Globulin (2.5-4.0) gm/dl Albumin/Globulin Ratio (0.9-2) Imaging Data Radiologist's Impression: CT PELVIS: Thickening and infiltrative changes in the bilateral buttocks and about the gluteal crease regions. No sizable drainable collection aside from probably pocket of the fluid/necrosis measuring about 7 mm in the left perianal region. Inguinal and pelvic adenopathy. Small fat-containing umbilical hernia. Radiologist: Iwona Freeman M.D. ECG Data Attestation: I personally reviewed and interpreted this ECG as follows: Indication: other Rate (beats per minute): 93 Rhythm: normal sinus Findings: + other (qt/qtc 384/477); no T-wave inversion, no ST elevation, no acute ischemic change and no ectopy Comparison ECG Date: from (01/30/19) Change: no significant change Blood Pressure Blood Pressure Findings: Normal blood pressure MDM Narrative This 39-year-old male patient presents to the emergency department today as a referral from his PCP for evaluation of a perirectal abscess. 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 The patient has apparently been refusing medications and not caring for himself at home. A 302 petition was signed by his PCP. While here in the emergency department, the patient is initially refusing to answer questions and instead states multiple times that his PCP is sending papers and that is why he is here. Review shows that the PCP is concerned for worsening infection, noncompliance with medications, and recommends IV antibiotics and imaging. Labs did show mild anemia, leukocytosis, as well as hypokalemia at 2.5. The potassium was replaced with a K rider and the patient was given IV normal saline solution. CT imaging did show likely improvement of the abscess but shows findings consistent with thickening and infiltration in the bilateral buttocks and gluteal crease with no sizable drainable collection. I do feel that the patient will require admission for medical clearance, potassium replacement, and IV antibiotics prior to any behavioral health admission. The patient was started on ertapenem while here in the department and was admitted to the hospitalist service to Dr. Magana. Please see hospitalist dictation regarding ongoing management care of this patient. The chart was completed utilizing [employer] Speech voice recognition software. G rammatical errors, random word insertions, pronoun errors, and incomplete sentences are an occasional consequence of this system due to software limitations, ambient noise, and hardware issues. Any formal questions or concerns about the content, text, or information contained within the body of this dictation should be directly addressed to the provider for clarification. Impression & Plan Paranoid schizophrenia, Hypokalemia, Abscess of buttock, Anemia Discharge Plan Visit Data *Final* Discharge Date/Time: 03/13/19 03:48 Chief Complaint: Infection, Wound Stated Complaint: PERIRECTAL ABCESS ED Provider: Cross,Anant E ED Midlevel Provider: Cheri Coles Discharge Problem: Paranoid schizophrenia, Hypokalemia, Abscess of buttock, Anemia Patient Disposition: Admitted As Inpatient Discharge Instructions Interventions: ED Discharge Assessment Last Done: 03/13/19 03:48 Discharge Problem: Anemia Qualifiers: Anemia type: unspecified type Qualified Code(s): D64.9 - Anemia, unspecified
[2019-03-12] MEDS ORDERED: IOVERSOL 100ml IV PRN (22:46)
[2019-03-12 22:56] LABS: Albumin Globulin Ratio 0.7 (0.9-2); Albumin Level 3.4 gm/dl (3.4-5.0); BUN Creatinine Ratio 6.7 (10-20); Bilirubin,Total 0.1 mg/dl (0.2-1); Calcium 8.6 mg/dl (8.5-10.1); Est GFR (African American) 111.3; Est GFR (Non-African American) 96.1; Globulin 4.7 gm/dl (2.5-4.0); Potassium 2.5 mmol/L (3.5-5.1); Total Protein 8.1 gm/dl (6.4-8.2)
[2019-03-12] MEDS ORDERED: POTASSIUM CHLORIDE / WTR 10 MEQ/100 ML PLCT IV ONE (23:07)
[2019-03-12] MEDS ORDERED: SODIUM CHLORIDE 0.9% 1000ML 1,000 ML IV ONE (23:08)
[2019-03-12 23:16] LABS: Magnesium 1.9 mg/dl (1.8-2.4)
[2019-03-13] MEDS ORDERED: ERTAPENEM SODIUM 10 ML IV STA (01:17)
[2019-03-13] MEDS ORDERED: POTASSIUM CHLORIDE 20 MEQ TABCR PO STA ×2 (01:26→03:08)
[2019-03-13] MEDS ORDERED: MAGNESIUM SULFATE / D5W 1 GM/100 ML BAG IV ONE (01:27)
[2019-03-13] MEDS ORDERED: POTASSIUM CHLORIDE 40 MEQ in SODIUM CHLORIDE 0.9% 1000ML 1,000 ML IV STA (01:27)
--- NOTE | 2019-03-13 03:02 | History & Physical Report ---
Date of Service March 13, 2019 Assessment & Plan (1) Perianal cellulitis: hx recurrent perirectal/perianal infection status post surgery Poor hygiene practices from psychiatric disorder. Refused additional surgical intervention from last visit History hiradenitis suppurativa as per records Patient not septic Hypokalemia secondary to clinical dehydration paranoid schizophrenia, patient chronically without insight regarding medical issues chronic anemia secondary to thalassemia, hemoglobin better than baseline likely secondary to hemoconcentration ongoing tobacco abuse GMF IV Ertapenem for now ID consult RE persistent perianal infection Patient continues to refuse surgical intervention. Replace potassium, IVF Psych consult RE schizophrenia evaluation PT OT eval Social service RE discharge planning Nicotine patch PRN DVT prophylaxis. Lovenox subcu Full code History of Present Illness Chief Complaint: Sent by PCP Primary Care Provider: Kenneth Agrawal DO History obtained from patient and records. Medical history significant for paranoid schizophrenia, hiradenitis suppurativa as per records, recurrent perirectal abscesses status post surgery, prediabetes as per records, chronic anemia secondary to thalassemia as per patient (baseline hemoglobin of 8), ongoing tobacco abuse. Recent confinement 01/20/19 to 02/01/19 for persistent perirectal abscess. Patient refused surgical intervention. Discharge on Cipro Flagyl course. Patient seen at PCP's office yesterday upon the request of home staff and mental health briefcase sewer to be evaluated for possible noncompliance. As per outpatient note, patient complaining of chronic swelling redness on the buttock area with occasional purulent drainage. Patient not changing his clothing/not bathing. Patient found touching his buttock wound and soiling surfaces at the [facility]. PCP requested to perform 302 evaluation. Patient denies chest pain, S OB, abdominal pain, diarrhea symptoms. Claims to be compliant with home medications. Buttock swelling the same as per patient. Patient denies suicidality. At the ER, patient received IV Ertapenem. Medical History as above Surgical History : Rectal abscess drainage Family History : Breast cancer, hyperlipidemia Personal/Social history : One pack daily, occasional EtOH intake, disabled Allergies Allergy/AdvReac Type Severity Reaction Status Date / Time Penicillins Allergy Unknown HAPPENED Verified 03/12/19 21:58 A CHILD Home Medications Home Medications Medication Instructions Recorded Confirmed Type escitalopram 10 mg tablet 10 mg PO HS tab 01/17/18 03/12/19 History hydroxyzine HCl 50 mg tablet 50 mg PO HS PRN 01/17/18 03/12/19 History quetiapine 200 mg PO HS 01/20/19 03/12/19 History Past Med/Surg History Medical History Paranoid schizophrenia (Chronic) Perianal abscess (Acute) Perirectal abscess (Acute) Depression (Chronic) Tobacco use disorder (Chronic) Surgical History History of incision and drainage Family History Other No pertinent family history Social History Preferred Language: Singaporean Communication Ability: Effective Drug Safety Data Management Specialist Required: No Beliefs That Will Affect Care: None marital status: Current Living Situation: Other Current Living Situation Comment: roommates Other Information That Helps Us Care for You: No Feels Safe at Home: Yes Safety Concerns: Feels Safe At This Time Smoking Status: Current every day smoker Tobacco Type: cigarettes ; Do You Dip or Chew Tobacco: No ; Second Hand Exposure: Yes ; Tobacco Cessation Education Requested by Patient: No Hx Alcohol Use: Yes Alcohol type: beer Hx Substance Use: No Review of Systems Review of Systems: As per HPI, all 10 systems reviewed, all other ROS negative Physical Exam Physical Exam: GENERAL: Comfortable, no respiratory distress, lying on the right lateral decubitus position SKIN: Pallor , warm HEENT: Alopecia, pale palpebral conjunctivae, no ptosis, dry buccal mucosa, occasional facial grimacing NECK : Supple, no tenderness CHEST : CTA, no tenderness HEART : RRR, no obvious murmurs ABDOMEN: Some distention, nontender RECTAL : Tender left medial buttock induration EXTREMITIES : No LE swelling/tenderness, no other conspicuous deformities noted NEUROLOGIC : Coherent, no facial asymmetry, occasional facial grimacing, no other gross focality Results & Data Vital Signs (Past 12 Hours) Vital Signs Temp Pulse Pulse Resp BP BP Pulse Ox 03/13/19 02:30 74 16 100/79 96 03/13/19 01:05 79 16 136/73 99 03/12/19 23:17 100 H 16 145/97 H 98 03/12/19 22:22 98 03/12/19 21:50 92 H 18 125/77 97 03/12/19 19:09 36.5 C 97 H 20 153/82 H 100 Laboratory Results Laboratory Results WBC 12.52 K/uL (4.8-10.8) H 03/12/19 22:22 RBC 3.67 M/uL (4.7-6.1) L 03/12/19 22:22 Hgb 11.2 g/dL (14.0-18.0) L 03/12/19 22:22 POC Hgb 11.6 g/dl (14.0-18.0) L 03/12/19 22:28 Hct 33.3 % (42-52) L 03/12/19 22:22 POC Hct 34 % (42-52) L 03/12/19 22:28 MCV 90.7 fL (80-100) 03/12/19 22:22 MCH 30.5 pg (25-34) 03/12/19 22:22 MCHC 33.6 g/dL (32-36) 03/12/19 22:22 RDW Std Deviation 44.2 fL (36.4-46.3) 03/12/19 22:22 RDW Coeff of Fausto 13.5 % (11.5-14.5) 03/12/19 22:22 Plt Count 576 K/uL (130-400) H 03/12/19 22:22 MPV 8.2 fL (7.4-10.4) 03/12/19 22:22 Immature Gran % (Auto) 0.2 % 03/12/19 22:22 Neut % (Auto) 72.7 % 03/12/19 22:22 Lymph % (Auto) 20.4 % 03/12/19 22:22 [place] % (Auto) 5.6 % 03/12/19 22:22 Eos % (Auto) 0.9 % 03/12/19 22:22 Baso % (Auto) 0.2 % 03/12/19 22:22 Immature Gran # (Auto) 0.03 K/uL (0.00-0.02) H 03/12/19 22:22 Neut # (Auto) 9.10 K/uL (1.4-6.5) H 03/12/19 22:22 Lymph # (Auto) 2.56 K/uL (1.2-3.4) 03/12/19 22:22 [place] # (Auto) 0.70 K/uL (0.11-0.59) H 03/12/19 22:22 Eos # (Auto) 0.11 K/uL (0-0.5) 03/12/19 22:22 Baso # (Auto) 0.02 K/uL (0-0.2) 03/12/19 22:22 PT 11.1 Seconds (9.0-12.0) 03/12/19 22:22 INR 1.1 (0.9-1.1) 03/12/19 22:22 APTT 30.6 Seconds (21.0-31.0) 03/12/19 22:22 PTT Ratio 1.1 03/12/19 22:22 POC Sodium 139 mEq/L (135-144) 03/12/19 22:28 Sodium 135 mmol/L (136-145) L 03/12/19 22:22 POC Potassium 2.6 mEq/L (3.3-5.0) L 03/12/19 22:28 Potassium 2.5 mmol/L (3.5-5.1) L* 03/12/19 22:22 POC Chloride 98 mEq/L (101-112) L 03/12/19 22:28 Chloride 100 mmol/L (98-107) 03/12/19 22:22 Carbon Dioxide 30 mmol/L (21-32) 03/12/19 22:22 POC Total CO2 30 mEq/l (24-31) 03/12/19 22:28 Anion Gap 5.0 (3-11) 03/12/19 22:22 POC Anion Gap 15.0 mmol/L (16-25) L 03/12/19 22:28 POC BUN 5 mg/dl (7-18) L 03/12/19 22:28 BUN 7 mg/dl (7-18) 03/12/19 22:22 Creatinine 0.98 mg/dl (0.6-1.4) 03/12/19 22:22 POC Creatinine 0.9 mg/dl (0.6-1.3) 03/12/19 22:28 Est Cr Clr Drug Dosing 110.0 ml/min 03/12/19 22:22 Est GFR ( Amer) 111.3 03/12/19 22:22 Est GFR (Non-Af Amer) 96.1 03/12/19 22:22 BUN/Creatinine Ratio 6.7 (10-20) L 03/12/19 22:22 Glucose 100 mg/dl (70-99) H 03/12/19 22:22 POC Glucose (other) 101 mg/dl (70-99) H 03/12/19 22:28 Lactate 1.6 mmol/L (0.4-2.0) 03/12/19 22:22 Calcium 8.6 mg/dl (8.5-10.1) 03/12/19 22:22 POC Ioniz Calcium Marianna 1.12 mmol/l (1.12-1.32) 03/12/19 22:28 Magnesium 1.9 mg/dl (1.8-2.4) 03/12/19 22:22 Total Bilirubin 0.1 mg/dl (0.2-1) L 03/12/19 22:22 AST 16 U/L (15-37) 03/12/19 22:22 ALT 16 U/L (12-78) 03/12/19 22:22 Alkaline Phosphatase 108 U/L (45-117) 03/12/19 22:22 Total Protein 8.1 gm/dl (6.4-8.2) 03/12/19 22:22 Albumin 3.4 gm/dl (3.4-5.0) 03/12/19 22:22 Globulin 4.7 gm/dl (2.5-4.0) H 03/12/19 22:22 Albumin/Globulin Ratio 0.7 (0.9-2) L 03/12/19 22:[address] pelvis initial read: Thickening/infiltrative changes in the bilateral buttocks and about gluteal crease regions. No sizable drainable collection aside from probable pocket of fluid/necrosis measuring about 7 mm in the left perianal region inguinal/pelvic adenopathy. Small fat-containing umbilical hernia.
[2019-03-13] MEDS ORDERED: PROMETHAZINE HCL 12.5 MG in SODIUM CHLORIDE 0.9% 50 ML IV PRN (04:04)
[2019-03-13] MEDS ORDERED: ACETAMINOPHEN 325 MG TAB PO PRN (04:04)
[2019-03-13] MEDS ORDERED: IBUPROFEN 200 MG TAB PO PRN (04:04)
[2019-03-13 06:05] LABS: Basophils # (auto) 0.03 K/uL (0-0.2); Basophils % (auto) 0.3 %; Eosinophils # (auto) 0.13 K/uL (0-0.5); Eosinophils % (auto) 1.3 %; Hematocrit (blood only) 30.7 % (42-52); Hemoglobin 10.2 g/dL (14.0-18.0); Immature Granulocytes # (auto) 0.01 K/uL (0.00-0.02); Immature Granulocytes % (auto) 0.1 %; Lymphocytes # (auto) 2.92 K/uL (1.2-3.4); Lymphocytes % (auto) 28.3 %; Mean Corpuscular Hemoglobin 29.9 pg (25-34); Mean Corpuscular Hgb Conc 33.2 g/dL (32-36); Monocytes # (auto) 0.69 K/uL (0.11-0.59); Monocytes % (auto) 6.7 %; Neutrophils # (auto) 6.54 K/uL (1.4-6.5); Neutrophils % (auto) 63.3 %; Platelet Count 523 K/uL (130-400); RDW Coefficient of Variation 13.6 % (11.5-14.5); RDW Standard Deviation 44.3 fL (36.4-46.3); Red Blood Count 3.41 M/uL (4.7-6.1); White Blood Count 10.32 K/uL (4.8-10.8)
[2019-03-13 06:45] LABS: BUN Creatinine Ratio 7.7 (10-20); Calcium 8.2 mg/dl (8.5-10.1); Creatinine Clr Calc Pharmacy 133.1 ml/min; Est GFR (African American) 128.8; Est GFR (Non-African American) 111.2
--- NOTE | 2019-03-13 06:52 | CT Scan Report ---
CT pelvis w/IV con only CLINICAL HISTORY: 39 years-old Male presenting with perirectal/buttock abscess, perirectal pain. TECHNIQUE: Multidetector CT of the pelvis was performed after the administration of intravenous contr ast. IV contrast: 93 mL of Optiray 320. One or more dose lowering techniques were used consistent wit h the principles of ALARA (as low as reasonably achievable), including automatic exposure control, mA or kV adjustment to individual patient size, and/or use of iterative reconstruction. COMPARISON: 01/21/2019. CT DOSE (mGy.cm): The estimated cumulative dose is 241.48 mGy.cm. 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 Extensive skin thickening along the medial gluteal cleft and medial aspect of the buttocks bilaterall y. There is subtle low density within the inferior aspect of this skin thickening along the left butt ocks measuring 13 mm (series 3 image 3-4). This may have been present to some extent on the prior exa m. There is subtle low density along the left aspect of the medial gluteal cleft just inferior to the level of the coccyx (series 3 image 206). This measures 11 mm. This appears new from prior. The rectum demonstrates mild if any wall thickening in the mid to lower region. No infiltration of th e mesorectal fat. Allowing for the sensitivity of CT, the anorectal junction and anus do not demonstr ate convincing evidence of a fistula at this time. Bilateral inguinal lymphadenopathy is again noted, likely reactive. No pelvic lymphadenopathy is pres ent. Atherosclerosis. Circumferential wall thickening of the bladder may be due to underdistention or outlet obstruction. The prostate is top normal in size. No free fluid or gas in the pelvis. The appe ndix is normal. No bowel obstruction. Osseous structures are normal. IMPRESSION: 1. Redemonstration of extensive skin thickening along the medial gluteal cleft in medial aspect of t he buttocks bilaterally. Within this skin thickening, 2 subtle regions of hypodensity are noted, one along the left aspect of the medial gluteal cleft just below the level of the coccyx measuring 11 mm and another more inferiorly and slightly more laterally along the left buttocks measuring 13 mm. Thes e could be further evaluated with ultrasound given their superficiality. These could represent phlegm on or early abscesses. 2. No CT evidence of perianal fistula or perirectal abscess. 3. Bilateral inguinal lymphadenopathy, unchanged from prior and most likely reactive. Electronically signed by: Serafin Moody M.D. 03/13/2019 6:51 AM
[2019-03-13 08:27] LABS: Appearance Urine Clear (Clear); Bilirubin Urine Negative (Negative); Blood Urine Negative (Negative); Color Urine Yellow; Glucose Urine UA Negative (Negative); Ketones Urine Negative (Negative); Leukocyte Esterase Urine Negative (Negative); Nitrite Urine Negative (Negative); Protein Urine Negative (Negative); Specific Gravity Urine 1.024 (1.000-1.030); Urobilinogen Urine Negative (Negative)
[2019-03-13] MEDS ORDERED: ERTAPENEM CONSULT ACTIVE PRN (09:00)
[2019-03-13] MEDS: ENOXAPARIN INJ 30 MG/0.3 ML SYR SQ SCH (09:24)
--- NOTE | 2019-03-13 09:39 | Infectious Disease Consult ---
Date of Consultation March 13, 2019 Assessment & Plan (1) Perirectal abscess: 39-year-old with chronic saloni-rectal abscess and surrounding cellulitis with prior cultures positive for Streptococcus. Likely poor hygiene and lack of personal care contributing to persistent infection. For now, would continue patient on IV ertapenem pending further mental health evaluation. Will follow. (2) Perianal cellulitis: (3) Streptococcal infection: History of Present Illness Reason for Consultation: Persistent perirectal abscess Attending Physician: Sidney Hughes DO History of Present Illness 39-year-old male well-known to me from infectious disease follow-up with history of schizophrenia, thalassemia, tobacco abuse, who has approximately 16-year history of persistent perirectal infection. He has had several admissions, has always refused any surgical intervention, and has been treated with both IV and more recently prolonged oral antibiotics with persistent drainage and induration, but no obvious significant worsening recently. Cultures in the past have grown Streptococcus. Patient was now admitted for further management after being found with evidence of very poor hygiene with fecal contamination of area of infection. CT scan of the pelvis showed evidence of persistent small collections/phlegmon with induration of the soft tissue consistent with infection. Has been started on IV ertapenem. States the pain is no worse than before, no increase in drainage, denies any fever or chills. Allergies Allergy/AdvReac Type Severity Reaction Status Date / Time Penicillins Allergy Unknown HAPPENED Verified 03/12/19 21:58 A CHILD Home Medications Home Medications Medication Instructions Recorded Confirmed Type escitalopram 10 mg tablet 10 mg PO HS tab 01/17/18 03/12/19 History hydroxyzine HCl 50 mg tablet 50 mg PO HS PRN 01/17/18 03/12/19 History quetiapine 200 mg PO HS 01/20/19 03/12/19 History Patient History Medical History Paranoid schizophrenia (Chronic) Perianal abscess (Acute) Perirectal abscess (Acute) Depression (Chronic) Tobacco use disorder (Chronic) Surgical History History of incision and drainage Social History Preferred Language: Kosovan Communication Ability: Effective Lan Manager Required: No Beliefs That Will Affect Care: None marital status: Current Living Situation: Other Current Living Situation Comment: roommates Other Information That Helps Us Care for You: No Feels Safe at Home: Yes Safety Concerns: Feels Safe At This Time Smoking Status: Current every day smoker Tobacco Type: cigarettes ; Do You Dip or Chew Tobacco: No ; Second Hand Exposure: Yes ; Tobacco Cessation Education Requested by Patient: No Hx Alcohol Use: Yes Alcohol type: beer Hx Substance Use: No Review of Systems Review of Systems: Unobtainable due to mental health condition Physical Exam Constitutional: WD/WN, vitals as above comfortable; no acute distress Eyes: PERRL, conjunctivae normal, anicteric sclerae ENMT: external ear and nose normal, oropharynx normal Neck: trachea midline, no thyromegaly neck nontender Respiratory: normal respiratory effort, lungs clear to auscultation normal percussion; does not use accessory muscles Cardiovascular: Rate/Rhythm: regular rate and regular rhythm Heart Sounds: normal S1 and normal S2; no gallop, no murmur and no cardiac rub Vessels: normal peripheral pulses; no JVD Gastrointestinal (Abdomen): normal bowel sounds, soft, nontender, no hepatosplenomegaly Musculoskeletal: no cyanosis or clubbing, extremities motor strength 5/5 Spine: thoracic spine normal to inspection and lumbar spine normal to inspection; no cervical spinal tenderness Skin: no rashes, warm and dry normal turgor; no lesions Neurologic: patellar DTR's 2+ bilat, sensation intact no focal motor deficits Psychiatric: A+Ox3, euthymic affect Orientation: cooperative Lymphatic: no cervical or axillary lymphadenopathy no inguinal lymphadenopathy Results & Data Vital Signs (Past 12 Hours) Vital Signs Temp Pulse Pulse Resp BP BP Pulse Ox 03/13/19 07:22 36.6 C 69 16 121/73 96 03/13/19 03:50 36.7 C 82 18 129/72 98 03/13/19 03:49 78 20 156/93 H 99 03/13/19 03:48 74 16 112/71 96 03/13/19 02:30 74 16 100/79 96 03/13/19 01:05 79 16 136/73 99 03/12/19 23:17 100 H 16 145/97 H 98 03/12/19 22:22 98 03/12/19 21:50 92 H 18 125/77 97 Laboratory Results Short CBC 03/12/19 03/13/19 Range/Units 22:22 05:47 WBC 12.52 H 10.32 (4.8-10.8) K/uL Hgb 11.2 L 10.2 L (14.0-18.0) g/dL Hct 33.3 L 30.7 L (42-52) % Plt Count 576 H 523 H (130-400) K/uL BMP 03/12/19 03/13/19 22:22 05:47 Sodium 135 L 140 Potassium 2.5 L* 3.0 L D Chloride 100 108 H Carbon Dioxide 30 28 BUN 7 6 L Creatinine 0.98 0.81 Glucose 100 H 90 Calcium 8.6 8.2 L Liver Function 03/12/19 Range/Units 22:22 Total Bilirubin 0.1 L (0.2-1) mg/dl AST 16 (15-37) U/L ALT 16 (12-78) U/L Alkaline Phosphatase 108 (45-117) U/L Albumin 3.4 (3.4-5.0) gm/dl Urine 03/13/19 Range/Units 08:00 Urine Color Yellow Urine Appearance Clear (Clear) Urine pH 6.0 (4.5-7.5) Ur Specific [place] 1.024 (1.000-1.030) Urine Protein Negative (Negative) Urine Glucose (UA) Negative (Negative) Diagnostic Findings Microbiology 03/12/19 22:00 Buttock Gram Stain - Final CT pelvis w/IV con only CLINICAL HISTORY: 39 years-old Male presenting with perirectal/buttock abscess, perirectal pain. TECHNIQUE: Multidetector CT of the pelvis was performed after the administration of intravenous contrast. IV contrast: 93 mL of Optiray 320. One or more dose lowering techniques were used consistent with the principles of ALARA (as low as reasonably achievable), including automatic exposure control, mA or kV adjustment to individual patient size, and/or use of iterative reconstruction. COMPARISON: 01/21/2019. CT DOSE (mGy.cm): The estimated cumulative dose is 241.48 mGy.cm. 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 Extensive skin thickening along the medial gluteal cleft and medial aspect of the buttocks bilaterally. There is subtle low density within the inferior aspect of this skin thickening along the left buttocks measuring 13 mm (series 3 image 3-4). This may have been present to some extent on the prior exam. There is subtle low density along the left aspect of the medial gluteal cleft just inferior to the level of the coccyx (series 3 image 206). This measures 11 mm. This appears new from prior. The rectum demonstrates mild if any wall thickening in the mid to lower region. No infiltration of the mesorectal fat. Allowing for the sensitivity of CT, the anorectal junction and anus do not demonstrate convincing evidence of a fistula at this time. Bilateral inguinal lymphadenopathy is again noted, likely reactive. No pelvic lymphadenopathy is present. Atherosclerosis. Circumferential wall thickening of the bladder may be due to underdistention or outlet obstruction. The prostate is top normal in size. No free fluid or gas in the pelvis. The appendix is normal. No bowel obstruction. Osseous structures are normal. IMPRESSION: 1. Redemonstration of extensive skin thickening along the medial gluteal cleft in medial aspect of the buttocks bilaterally. Within this skin thickening, 2 subtle regions of hypodensity are noted, one along the left aspect of the medial gluteal cleft just below the level of the coccyx measuring 11 mm and another more inferiorly and slightly more laterally along the left buttocks measuring 13 mm. These could be further evaluated with ultrasound given their superficiality. These could represent phlegmon or early abscesses. 2. No CT evidence of perianal fistula or perirectal abscess. 3. Bilateral inguinal lymphadenopathy, unchanged from prior and most likely reactive. Electronically signed by: Serafin Moody M.D. 03/13/2019 6:51 AM Dictated: 03/13/19 0644 PG Care Time/CCT Total # of Minutes Spent Total Time Spent with Patient: Total time spent is greater than 50% in coordination of care (as documented) at patient's floor/unit and/or counseling patient:
--- NOTE | 2019-03-13 15:31 | Communication Note ---
Date of Service: March 13, 2019 Date of Consultation March 13, 2019 Impression / Recommendations Impression 39-year-old male admitted medically on 03/13/2019 after seeing his PCP as an outpatient. PCP petitioned for mental health evaluation due to poor hygiene at his alf. Psychiatric consultation was requested upon admission for "schizophrenia." At this time, we are awaiting clarification of consult question that our service is being asked to weigh in on. Patient was admitted medically from 01/20/19 02/01/19 for similar concerns, and our service was involved in his treatment at that time. It is reported the patient has been compliant with his psychotropic medications for schizophrenia. If request is for assessment of capacity to make treatment decisions, we would need to understand the specific decision the patient is being asked to make, as well as documentation of a thorough discussion of risks, benefits, and patient's percei eva understanding of this conversation at time of discussion. While we attempt to clarify the consult question, we will work to gather additional information from patient's father and outpatient case reviewer. We will also request outpatient psychiatric records to clarify recent treatment. See psychiatric liaison documentation for information as it is gathered. We will be reviewing patient's case during his continued admission. We will continue to gather collateral information while attempting to clarify specific needs from our service. This NEREIDA supervising physician was directly involved in review and discussion of the patient's case and participated in medical decision making regarding treatment recommendations. Psych History Allergies Allergy/AdvReac Type Severity Reaction Status Date / Time Penicillins Allergy Unknown HAPPENED Verified 03/12/19 21:58 A CHILD Home Medications Home Medications Medication Instructions Recorded Confirmed Type escitalopram 10 mg tablet 10 mg PO HS tab 01/17/18 03/12/19 History hydroxyzine HCl 50 mg tablet 50 mg PO HS PRN 01/17/18 03/12/19 History quetiapine 200 mg PO HS 01/20/19 03/12/19 History Personal History Beliefs That Will Affect Care: None Patient History Medical History Paranoid schizophrenia (Chronic) Perianal abscess (Acute) Perirectal abscess (Acute) Depression (Chronic) Tobacco use disorder (Chronic) Surgical History History of incision and drainage Family History Other No pertinent family history Social History Preferred Language: Upper Sorbian Communication Ability: Effective Transformation Lead Required: No Beliefs That Will Affect Care: None marital status: Current Living Situation: Other Current Living Situation Comment: roommates Other Information That Helps Us Care for You: No Feels Safe at Home: Yes Safety Concerns: Feels Safe At This Time Smoking Status: Current every day smoker Tobacco Type: cigarettes ; Do You Dip or Chew Tobacco: No ; Second Hand Exposure: Yes ; Tobacco Cessation Education Requested by Patient: No Hx Alcohol Use: Yes Alcohol type: beer Hx Substance Use: No Physical Exam Vital Signs (Past 24 Hours): Last Vital Signs Temp 36.6 C 03/13/19 07:22 Pulse 69 03/13/19 07:22 Resp 16 03/13/19 07:22 BP 121/73 03/13/19 07:22 Pulse Ox 96 03/13/19 07:22 Results & Data Medications Administered Enoxaparin Sodium (Lovenox) 30 mg SQ QAM [facility] Stop: 04/12/19 08:59 Last Admin: 03/13/19 09:24 Dose: 30 mg Documented by: [id number] Coding - Rendering of consultation questions while awaiting additional clarification of role by consulting service No charge at this time
[2019-03-13] MEDS: QUETIAPINE FUMARATE 200 MG TAB PO SCH (20:38)
--- NOTE | 2019-03-13 20:53 | Emergency Department Note ---
ED Visit Note HPI: 39 y/o gentleman with pmhx of schizophrenia p/w recurrent gluteal infection. 302 petition by his pcp for worsening self-neglect/self-care concer celia for his and others safety/health/well-being. Per petition "non-compliant with his medication and has been found by [facility] staff to have poor hygiene, not bathing or showering, fecal matter in computer station and soiled clothing and linens. Posing a risk to self and others in household." PE: AFVSS, NAD Psych: On evaluation appears to demonstrate degree of medical decision making capacity. Able to explain in his own words that we are concerned for "his abscess" and want to admit him for "IV antibiotics and fix his potassium". CT with recurrent gluteal phlegmon vs early abscess. Plan: Admit for IV ABX. Patient is agreeable. Will need inpatient psych eval given concerns expressed on 302 petition in the setting of his schizophrenia. I reviewed the patient's past medical history, medications, and visit nursing notes. I discussed the case with the physician assistant housekeeping manager, examined the patient, and agree with the findings and plan as documented PAC Sanket's note. . : Anemia Qualifiers: Anemia type: unspecified type Qualified Code(s): D64.9 - Anemia, unspecified
[2019-03-13] MEDS: POTASSIUM CHLORIDE / WTR 10 MEQ/100 ML PLCT IV SCH ×3 (21:19→23:29)
[2019-03-13] MEDS: ESCITALOPRAM OXALATE 10 MG TAB PO SCH (21:21)
[2019-03-13] MEDS ORDERED: POTASSIUM CHLORIDE 10 MEQ TABCR PO ONE (21:30)
[2019-03-14] MEDS: POTASSIUM CHLORIDE / WTR 10 MEQ/100 ML PLCT IV SCH (00:28)
[2019-03-14] MEDS: ERTAPENEM SODIUM 1,000 MG in SODIUM CHLORIDE 0.9% 50 ML IV SCH (00:28)
[2019-03-14] MEDS: ENOXAPARIN INJ 30 MG/0.3 ML SYR SQ SCH (09:21)
[2019-03-14 10:43] LABS: BUN Creatinine Ratio 6.9 (10-20); Calcium 8.3 mg/dl (8.5-10.1); Creatinine Clr Calc Pharmacy 136.4 ml/min; Est GFR (African American) 130.2; Est GFR (Non-African American) 112.3; Potassium 3.7 mmol/L (3.5-5.1)
--- NOTE | 2019-03-14 13:01 | Psychiatric Consultation ---
Date of Consultation March 14, 2019 Impression / Recommendations Impression 39-year-old male with a history of schizophrenia and chronic perirectal abscess who is hospitalized with cellulitis and purulent drainage after he saw his PCP and detention staff reported he was not maintaining basic hygiene. Although he denies active mood and psychotic symptoms, he appears blunted and paranoid, and certainly is not demonstrating an ability to maintain his personal hygiene or self-care with respect to his abscess. His poor self-care has led to dismissal from the personal chcf he had lived that for almost 2 years, and may jeopardize his ability to return to his current detention. He claims to have no knowledge of the concerns expressed by detention staff and his outpatient case management specialist, it is not clear to me if he was present for the these discussions were made aware of the concerns, but I suspect that he was. There is a marked disconnect between what his outpatient whanau support worker are reporting and his impression of the current situation. It might be helpful to have a meeting involving the patient, his father, and his blended case management specialist to have an open discussion about the concerns that have been raised over the past several months about his behavior and self-care. We will continue to follow and assess the need for psychiatric hospitalization at the time of medical clearance. (1) Schizophrenia: 03/14 -continue home dose of quetiapine 200 mg at bedtime. QTC 477 on presentation. This is a very low dose as far as antipsychotic activity, but he is consistently denying active psychotic symptoms, and declining dose increase as well as transition to a long-acting injectable antipsychotic. Per outpatient records, he has not been doing well for months, and given his inability to maintain personal hygiene to the extent that he may lose his housing, consideration for inpatient treatment is warranted. -Gather collateral information from his outpatient treatment team and schedule a meeting to include his BCM and father. The patient himself would like to be present as well. Schizophrenia type: unspecified Qualified Code(s): F20.9 - Schizophrenia, unspecified Present on Admission?: Yes (2) Depression: Continue home dose of escitalopram 10 mg daily. Although he denies active mood symptoms, he appears blunted, so we will continue to assess for signs of depression. Present on Admission?: Yes Risk Factors Assessment Male: Yes : No Do You Have Access To A Gun?: No Health Problems: Yes Mental Health Diagnoses: Yes Substance Use Disorders: No Hopelessness: No Smoker: Yes Protective Factors Assessment : No Responsible for Young Children: No Employed: No Stable Relationships: No Supportive Family: Yes Good Rapport with Provider: Yes Psych History Identifying Data 39-year-old male with schizophrenia and chronic perirectal abscess/surrounding cellulitis who presented on referral from his PCP's office for worsening abscess drainage, poor self care, and concerns for nonadherence with psychotropic medications. His PCP completed a 302 warrant as well. The patient is admitted to the hospitalist service, and psychiatry was consulted to determine if his schizophrenia is being optimally managed. Chief Complaint "A little better today". History of Present Illness Patient known to me from psychiatric consultation during his recent hospitalization 01/20/19 - 02/01/19, also for persistent perirectal abscess. He had declined surgery and opted for conservative measures, and after improvement was discharged on antibiotics. During that hospitalization, I participated in the discharge planning meeting which included his father, hospital case management, and his outpatient case management specialist Barbara. He had been discharged from his personal chcf due to poor hygiene/personal care, and other supportive living environments were discussed, including the [facility] (although he had not yet been referred). He was ultimately discharged from the hospital with a plan to go to [facility] for [facility] detention, but instead went to stay with his father for a few days, and was then accepted at the [facility], where he has been for about the past month. Records from his PCP visit 03/12/2019 were reviewed; he was seen at the request of his detention staff and outpatient case management specialist due to concerns for noncompliance with both medical and mental health treatment. The patient reported chronic buttock swelling and redness with occasional purulent drainage, but denies any recent changes. Staff reported he was not bathing regularly or putting on clean clothes, was observed touching his abscess while in food preparation areas, and detention staff had to clean fecal matter off of his computer station. The note also states the patient admitted to noncompliance with his psychiatric medications due to administration times. His PCP completed a 302 petition stating the above information. On admission here, he was continued on his home doses of escitalopram and quetiapine, and started on IV antibiotics. He has been cooperative with treatment, taking medications, and signed releases for his father and outpatient psychiatrist and case management specialist. The liaison nurse spoke to Barbara, his BCM, and she reported he was not caring for himself, was leaving bodily fluids on the furniture and in the kitchen, and his room was malodorous. They were working on referral to a personal chcf in [place] where he would have nursing care. On my assessment today, he states he came to the hospital because his PCP recommended he "get some tests done," but is unable to be any more specific about what the concerns were. He denies that his perirectal abscess has been bothering him more in terms of pain or discharge, denies that he has been psychiatrically unstable recently, and essentially is unable to explain why his PCP recommended hospitalization. He reports mood has been "feeling okay," denies problems with sleep or appetite, hopelessness, decreased interest in activities, impaired focus, as well as symptoms of anxiety, hallucinations, thoughts of harming himself, and thoughts of harming others. He says he has been living at the [facility] for the past month and believes things are going well, denies that he has any concerns about his self-care or that anyone else has expressed concerns about his hygiene, and says he is bathing. He says that he wants to get into [facility], but is still waiting for his referral to be processed, and his goal is to eventually move to independent housing. He reports missing his medication (states he takes all of his medications at bedtime) 2-3 times since moving to the [facility], which he attributes to adjusting to the new routine there, as medications are administered during a 2-hour window, and if he misses it, he is unable to get his medication. He denies any side effects to his medications, and thinks they are helpful. He states that his abscess has been present for 16 years, has no explanation for why it has not healed, and says that he has had "numerous, at least 10" surgeries, and none of them have resulted in improvement, which is why he has not been willing for additional surgeries. He states that no one has recommended therapy or any treatment other than antibiotics to him during his current hospitalization. He states he enjoys playing on his computer (music, programming), and has been seeing his father about once a week. He says he was unaware of any plan to transition him to a personal chcf or that he might not be able to return to the [facility]. Outpatient records from Dr. Eid at [facility] reviewed: Patient last seen 02/21/19 along with his BCM and [facility] director. He had been there for 2 weeks, and detention staff reported he was not caring for himself, had not showered since arrival, and was picking at and touching his perianal abscess. He was not interacting with other people at the detention, and refusing to even go out to buy food. He was declining recommendations to go to day treatment or [facility]. He reported adherence with oral medications, but staff were concerned he was cheeking them. He declined recommendations to increase his antipsychotic or switch to a long-acting injectable. He denied active psychotic and mood sympto ms, and there was discussion of pursuing a 302 involuntary commitment for inability to care for himself. At his 02/06/2019 appointment, he had recently been discharged from the hospitalist service where he was treated for his abscess. He had stayed with his father for a couple of days, and was transitioning to the [facility] detention. He was paranoid, with limited insight, stating he did nothing wrong and did not understand why he had been dismissed from his personal chcf. Staff suspected he was hallucinating at night, as he had been observed talking and laughing to himself while alone in his room. He explained that this was because he was watching things on the Internet. A long-acting injectable was recommended (and had been recommended multiple times in the past) due to concerns of nonadherence with oral medications, but he refused. At his 01/09/2019 appointment, he had been staying up all night, pacing, and talking to himself, which was reportedly chronic. The behaviors had not improved despite the change in his antipsychotic from olanzapine to quetiapine the month prior. He was noted to be organized in his thinking, and denied active psychotic and mood symptoms. He stated he could not attend a treatment programming because it was painful for him to sit due to his abscess. At his 12/12/2018 appointment, personal chcf staff expressed concerns that he was not sleeping and appeared to be responding to hallucinations, was isolating more, and the recent increase in olanzapine had not been effective, so he was switched to quetiapine. At his 11/01/2018 appointment, olanzapine was increased to 20 mg to target psychosis, as he had been increasingly isolated over the past 2 months, refused to participate in activities with other residents, and appeared to be responding to internal stimuli, laughing and talking to himself. Although he told them that he was listening to things on his computer, he was observed behaving in this manner without external stimuli. Past Psychiatric History Previous Psych History: Paranoid schizophrenia Outpatient Services: Psychiatrist: Dr. Eid at [facility] manager case management: Kayla at [facility] Previous Psych Admissions: Last psychiatric hospitalization at [facility] in 2012 Do You Have Access To A Gun?: No Past Medication Trials: Hydroxyzine Escitalopram Olanzapine Clozapine Allergies Allergy/AdvReac Type Severity Reaction Status Date / Time Penicillins Allergy Unknown HAPPENED Verified 03/12/19 21:58 A CHILD Home Medications Home Medications Medication Instructions Recorded Confirmed Type escitalopram 10 mg tablet 10 mg PO HS tab 01/17/18 03/13/19 History hydroxyzine HCl 50 mg tablet 50 mg PO HS PRN 01/17/18 03/13/19 History quetiapine 200 mg PO HS 01/20/19 03/13/19 History Personal History Living Arrangements: [facility] Living Arrangements Comments: Had been living at [facility] until he was evicted last month due to poor personal care and issues with staff and other residents. 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 Beliefs That Will Affect Care: None marital status: Current Living Situation: Other Current Living Situation Comment: roommates Other Information That Helps Us Care for You: No Feels Safe at Home: Yes Safety Concerns: Feels Safe At This Time Smoking Status: Current every day smoker Tobacco Type: cigarettes ; Do You Dip or Chew Tobacco: No ; Second Hand Exposure: Yes ; Tobacco Cessation Education Requested by Patient: No Hx Alcohol Use: Yes Alcohol type: beer Hx Substance Use: No Physical Exam Psychiatric: Orientation: alert and cooperative (Partially, but a limited historian.) Apperance: + inappropriately dressed (Wearing a plaid, button down shirt with a hospital gown over it) and + inappropriately groomed (Unkempt, malodorous, teeth are covered in plaque. Appears older than stated age.) Eye Contact: + poor eye contact Initially keeps eyes closed, and later opens his eyes, but hold his hands or arm over his face and does not make eye contact. Motor Behavior: no abnormal motor movements Remains in bed. Speech is soft, normal rate. Affect: + blunted affect; + mood not congruent with affect Appears suspicious, fearful. Mood: no depressed mood and no anxious mood "Pretty good." Thought Process: + concrete thought process Mostly goal- directed, but at times answers with unrelated information. Thought Content: + paranoid Paucity of thought content, with very vague answers, and inability to clarify or expand upon information when asked. Suicidal Thoughts: denies suicidal thoughts Homicidal Thoughts: denies homicidal thoughts Hallucinations: no auditory hallucinations and no visual hallucinations Insight: + impaired insight Judgement: + impaired judgement Vital Signs (Past 24 Hours): Last Vital Signs Temp 36.6 C 03/14/19 07:23 Pulse 51 L 03/14/19 07:23 Resp 16 03/14/19 07:23 BP 103/65 03/14/19 07:23 Pulse Ox 97 03/14/19 07:23 Review of Systems All systems reviewed & are unremarkable except as noted in HPI & below Patient reports mild perirectal pain and "dental problems." Results & Data Medications Administered Enoxaparin Sodium (Lovenox) 30 mg SQ QAM CORNELIUS Stop: 04/12/19 08:59 Last Admin: 03/14/19 09:21 Dose: 30 mg Documented by: [id number] Admin: 03/13/19 09:24 Dose: 30 mg Documented by: [id number] Escitalopram Oxalate (Lexapro Tab) 10 mg PO HS CORNELIUS Stop: 04/12/19 20:59 Last Admin: 10/22/19 21:21 Dose: 10 mg Documented by: [id number] Ertapenem 1,000 mg/ Sodium (Chloride) 60 mls @ 100 mls/hr IV Q24H CORNELIUS; Protocol Stop: 03/23/19 00:59 Last Infusion: 03/14/19 01:06 Dose: 0 mls/hr Documented by: [id number] Admin: 03/14/19 00:28 Dose: 100 mls/hr Documented by: [id number] Quetiapine Fumarate (Seroquel) 200 mg PO HS CORNELIUS Stop: 04/12/19 20:59 Last Admin: 03/13/19 20:38 Dose: 200 mg Documented by: [id number] Coding Level of Care Code 01122 [facility] Intl Hosp Care Lvl 3 Diagnoses Depression F32.9 Schizophrenia F20.9 Schizophrenia type: unspecified
[2019-03-14] MEDS: KETOROLAC TROMETHAMINE 15 MG/ML VIAL IV PRN (15:47)
--- NOTE | 2019-03-14 20:31 | Hospitalist Progress Note ---
Date of Service March 14, 2019 Assessment & Plan (1) Perianal cellulitis: Abscess of buttock Wound cx positive for streptoccocus species in the past ID on board recommended to continue IV antibiotic therapy with Ertapenem Pt listed as Penicillin allergies, in the past he had Zosyn and Augmentin Pt said that he think that he had a rash while on penicillin, but not sure (he asked his uncle and did not remember that) Continue pain control Daily wound care and good hygiene (2) Anemia: Anemia could possibly be secondary to chronic infection/inflammation. Hgb 10.2 Stable (3) Paranoid schizophrenia: On olanzapine. Psych on board (4) Tobacco use disorder Counseling on smoking cessation (5) DVT prophylaxis: Ambulates/SCDs Disposition Will discharge once medically stable Subjective Pt was seen and examined Lying in bed with no distress watching video in his computer Pt said that he feels ok Denies any chest pain, palpitation and SOB Physical Exam Physical Exam: General- No acute distress Head- atraumatic Eyes- PERRL, EOMI, ENT- oropharynx clear Neck- supple, no JVD Lungs- clear to auscultation Heart- regular rhythm; no murmur Abdomen- normal bowel sounds, soft, nontender Extremities- no calf tenderness Neuro- alert, oriented x 3; PERRL, EOMI; no facial palsy; no dysarthria - +sinus tract, buttock induration, + drainage Skin- warm & dry Results & Data Vital Signs (Past 12 Hours) Vital Signs Temp Pulse Resp BP Pulse Ox 03/14/19 15:17 36.8 C 73 16 159/89 H 99
[2019-03-14] MEDS: ESCITALOPRAM OXALATE 10 MG TAB PO SCH (20:38)
[2019-03-14] MEDS: QUETIAPINE FUMARATE 200 MG TAB PO SCH (20:38)
[2019-03-15] MEDS: KETOROLAC TROMETHAMINE 15 MG/ML VIAL IV PRN ×2 (00:27→01:14)
[2019-03-15] MEDS: ERTAPENEM SODIUM 1,000 MG in SODIUM CHLORIDE 0.9% 50 ML IV SCH ×2 (00:27→01:13)
[2019-03-15 05:34] LABS: Hematocrit (blood only) 31.3 % (42-52); Hemoglobin 9.9 g/dL (14.0-18.0); Mean Corpuscular Hemoglobin 29.6 pg (25-34); Mean Corpuscular Hgb Conc 31.6 g/dL (32-36); Mean Corpuscular Volume 93.7 fL (80-100); Mean Platelet Volume 8.4 fL (7.4-10.4); Platelet Count 459 K/uL (130-400); RDW Coefficient of Variation 13.7 % (11.5-14.5); RDW Standard Deviation 46.7 fL (36.4-46.3); Red Blood Count 3.34 M/uL (4.7-6.1); White Blood Count 7.71 K/uL (4.8-10.8)
[2019-03-15 06:08] LABS: BUN Creatinine Ratio 7.5 (10-20); Calcium 7.9 mg/dl (8.5-10.1); Creatinine Clr Calc Pharmacy 131.4 ml/min; Est GFR (African American) 128.2; Est GFR (Non-African American) 110.6; Potassium 3.3 mmol/L (3.5-5.1)
[2019-03-15] MEDS: ENOXAPARIN INJ 30 MG/0.3 ML SYR SQ SCH (09:00)
[2019-03-15] MEDS ORDERED: POTASSIUM CHLORIDE 20 MEQ TABCR PO STA (09:35)
--- NOTE | 2019-03-15 19:11 | Hospitalist Progress Note ---
Date of Service March 15, 2019 Assessment & Plan (1) Perianal cellulitis: Abscess of buttock Wound cx positive for alpha strep not enteroccocus and coag negative staph ID on board recommended to continue IV antibiotic therapy with Ertapenem Pt listed as Penicillin allergies, last admission he had Zosyn and he was discharged on Augmentin Pt said that he think that he had a rash while on penicillin, but not sure (he asked his uncle and did not remember that) Continue pain control Daily wound care and good hygiene Will talk to ID tomorrow about final abx on discharge (2) Anemia: Anemia could possibly be secondary to chronic infection/inflammation. Hgb 9.9 Stable (3) Paranoid schizophrenia Continue Seroquel 200mg HS Psych on board Plan to transfer to psych unit once bed available (4) Tobacco use disorder Counseling on smoking cessation (5) DVT prophylaxis: Ambulates/SCDs Disposition Will transfer to psych unit once bed available Subjective Pt was seen and examined Lying in bed with no distress Pt said that he feels ok He is very anxious to go home Denies any chest pain, palpitation, dizziness and SOB Physical Exam Physical Exam: General- No acute distress Head- atraumatic Eyes- PERRL, EOMI, ENT- oropharynx clear Neck- supple, no JVD Lungs- clear to auscultation Heart- regular rhythm; no murmur Abdomen- normal bowel sounds, soft, nontender Extremities- no calf tenderness Neuro- alert, oriented x 3; PERRL, EOMI; no facial palsy; no dysarthria - +sinus tract, buttock induration, + drainage Skin- warm & dry Results & Data Vital Signs (Past 12 Hours) Vital Signs Temp Pulse Resp BP Pulse Ox 03/15/19 07:19 36.7 C 56 L 16 104/62 94
[2019-03-15] MEDS: QUETIAPINE FUMARATE 200 MG TAB PO SCH (21:29)
[2019-03-15] MEDS: ESCITALOPRAM OXALATE 10 MG TAB PO SCH (21:29)
[2019-03-16] MEDS: ERTAPENEM SODIUM 1,000 MG in SODIUM CHLORIDE 0.9% 50 ML IV SCH (01:55)
[2019-03-16] MEDS: KETOROLAC TROMETHAMINE 15 MG/ML VIAL IV PRN (02:35)
[2019-03-16] MEDS: ENOXAPARIN INJ 30 MG/0.3 ML SYR SQ SCH (09:06)
[2019-03-16 09:30] VITALS: BP 125/71; PULSE 83; TEMP 97.5; O2SAT 97
[2019-03-16 10:38] LABS: BUN Creatinine Ratio 6.1 (10-20); Calcium 8.9 mg/dl (8.5-10.1); Creatinine Clr Calc Pharmacy 103.6 ml/min; Est GFR (African American) 103.6; Est GFR (Non-African American) 89.4; Potassium 3.8 mmol/L (3.5-5.1)
--- NOTE | 2019-03-16 12:02 | Hospitalist Progress Note ---
Date of Service March 16, 2019 Assessment & Plan (1) Perianal cellulitis: Abscess of buttock Wound cx positive for alpha strep not enteroccocus and coag negative staph ID on board recommended to continue IV antibiotic therapy with Ertapenem Pt listed as Penicillin allergies, last admission he had Zosyn and he was discharged on Augmentin Continue pain control Daily wound care and good hygiene Case discussed with ID Dr. Dunn recommended to transition to oral Augmentin for a nursing home course (Indefinitely) Continue daily wound care Follow up with ID and wound care clinic (2) Anemia: Anemia could possibly be secondary to chronic infection/inflammation. Hgb 9.9 Stable (3) Paranoid schizophrenia Continue Seroquel 200mg HS Psych on board Plan to transfer to psych unit once bed available (4) Tobacco use disorder Counseling on smoking cessation (5) DVT prophylaxis: Ambulates/SCDs Disposition Will transfer to psych unit today Follow up with PCP once discharge from the psych unit Follow up with ID and wound care clinic Subjective Pt was seen and examined Lying in bed with no distress watching in his laptop Pt said that he feels ok and anxious to discharge Denies any chest pain, palpitation and fever Physical Exam Physical Exam: General- No acute distress Head- atraumatic Eyes- PERRL, EOMI, ENT- oropharynx clear Neck- supple, no JVD Lungs- clear to auscultation Heart- regular rhythm; no murmur Abdomen- normal bowel sounds, soft, nontender Extremities- no calf tenderness Neuro- alert, oriented x 3; PERRL, EOMI; no facial palsy; no dysarthria - +sinus tract, buttock induration, + drainage Skin- warm & dry Results & Data Vital Signs (Past 12 Hours) Vital Signs Temp Pulse Resp BP Pulse Ox 03/16/19 09:28 36.4 C L 83 18 125/71 97
--- NOTE | 2019-03-16 12:43 | Discharge Summary ---
Date of Service March 16, 2019 Admission HPI Per Admitting Provider Chief Complaint: Sent by PCP Primary Care Provider: Kenneth Agrawal DO History obtained from patient and records. Medical history significant for paranoid schizophrenia, hiradenitis suppurativa as per records, recurrent perirectal abscesses status post surgery, prediabetes as per records, chronic anemia secondary to thalassemia as per patient (baseline hemoglobin of 8), ongoing tobacco abuse. Recent confinement 01/20/19 to 02/01/19 for persistent perirectal abscess. Patient refused surgical intervention. Discharge on Cipro Flagyl course. Patient seen at PCP's office yesterday upon the request of home staff and mental health case management manager to be evaluated for possible noncompliance. As per outpatient note, patient complaining of chronic swelling redness on the buttock area with occasional purulent drainage. Patient not changing his clothing/not bathing. Patient found touching his buttock wound and soiling surfaces at the skilled nursing. PCP requested to perform 302 evaluation. Patient denies chest pain, S OB, abdominal pain, diarrhea symptoms. Claims to be compliant with home medications. Buttock swelling the same as per patient. Patient denies suicidality. At the ER, patient received IV Ertapenem. Admission Exam Per Admitting Provider GENERAL: Comfortable, no respiratory distress, lying on the right lateral decubi tus position SKIN: Pallor , warm HEENT: Alopecia, pale palpebral conjunctivae, no ptosis, dry buccal mucosa, occasional facial grimacing NECK : Supple, no tenderness CHEST : CTA, no tenderness HEART : RRR, no obvious murmurs ABDOMEN: Some distention, nontender RECTAL : Tender left medial buttock induration EXTREMITIES : No LE swelling/tenderness, no other conspicuous deformities noted NEUROLOGIC : Coherent, no facial asymmetry, occasional facial grimacing, no other gross focality Principal Diagnosis Perianal cellulitis Abscess of buttock Paranoid schizophrenia Tobacco abuse Anemia Discharge Exam General- No acute distress Head- atraumatic Eyes- PERRL, EOMI, ENT- oropharynx clear Neck- supple, no JVD Lungs- clear to auscultation Heart- regular rhythm; no murmur Abdomen- normal bowel sounds, soft, nontender Extremities- no calf tenderness Neuro- alert, oriented x 3; PERRL, EOMI; no facial palsy; no dysarthria - +sinus tract, buttock induration, + drainage Skin- warm & dry Discharge Data Allergies Allergy/AdvReac Type Severity Reaction Status Date / Time No Known Allergies Allergy Verified 03/16/19 10:53 Consultations 03/13/19 01:17 ED Decision to Admit Stat 03/13/19 04:04 Consult Case Management - Discharge Planning Routine Consult Infectious Diseases Routine Consult Psychiatry Routine Ordered Studies 03/12/19 22:02 CT pelvis w/IV con only Urgent CT pelvis w/IV con only CLINICAL HISTORY: 39 years-old Male presenting with perirectal/buttock abscess, perirectal pain. TECHNIQUE: Multidetector CT of the pelvis was performed after the administration of intravenous contrast. IV contrast: 93 mL of Optiray 320. One or more dose lowering techniques were used consistent with the principles of ALARA (as low as reasonably achievable), including automatic exposure control, mA or kV adjustment to individual patient size, and/or use of iterative reconstruction. COMPARISON: 01/21/2019. CT DOSE (mGy.cm): The estimated cumulative dose is 241.48 mGy.cm. FINDINGS: Child Welfare Caseworker topogram: Unremarkable. Extensive skin thickening along the medial gluteal cleft and medial aspect of the buttocks bilaterally. There is subtle low density within the inferior aspect of this skin thickening along the left buttocks measuring 13 mm (series 3 image 3-4). This may have been present to some extent on the prior exam. There is subtle low density along the left aspect of the medial gluteal cleft just inferior to the level of the coccyx (series 3 image 206). This measures 11 mm. This appears new from prior. The rectum demonstrates mild if any wall thickening in the mid to lower region. No infiltration of the mesorectal fat. Allowing for the sensitivity of CT, the a norectal junction and anus do not demonstrate convincing evidence of a fistula at this time. Bilateral inguinal lymphadenopathy is again noted, likely reactive. No pelvic lymphadenopathy is present. Atherosclerosis. Circumferential wall thickening of the bladder may be due to underdistention or outlet obstruction. The prostate is top normal in size. No free fluid or gas in the pelvis. The appendix is normal. No bowel obstruction. Osseous structures are normal. IMPRESSION: 1. Redemonstration of extensive skin thickening along the medial gluteal cleft in medial aspect of the buttocks bilaterally. Within this skin thickening, 2 subtle regions of hypodensity are noted, one along the left aspect of the medial gluteal cleft just below the level of the coccyx measuring 11 mm and another more inferiorly and slightly more laterally along the left buttocks measuring 13 mm. These could be further evaluated with ultrasound given their superficiality. These could represent phlegmon or early abscesses. 2. No CT evidence of perianal fistula or perirectal abscess. 3. Bilateral inguinal lymphadenopathy, unchanged from prior and most likely reactive. Electronically signed by: Serafin Moody M.D. 03/13/2019 6:51 AM Dictated: 03/13/19643 Transcribed: 03/13/19643 Hospital Course (1) Perianal cellulitis: Abscess of buttock CT pelvis showed redemonstration of extensive skin thickening along the medial gluteal cleft in medial aspect of the buttocks bilaterally. Within this skin thickening, 2 subtle regions of hypodensity are noted, one along the left aspect of the medial gluteal cleft just below the level of the coccyx measuring 11 mm and another more inferiorly and slightly more laterally along the left buttocks measuring 13 mm Wound cx positive for alpha strep not enteroccocus and coag negative staph ID on board recommended to continue IV antibiotic therapy with Ertapenem Pt listed as Penicillin allergies, last admission he had Zosyn and he was discharged on Augmentin Continue pain control Daily wound care and good hygiene Case discussed with ID Dr. Dunn recommended to transition to oral Augmentin for a care home course (Indefinitely) Continue daily wound care Follow up with ID and wound care clinic (2) Anemia: Anemia could possibly be secondary to chronic infection/inflammation. Hgb 9.9 Stable (3) Paranoid schizophrenia Continue Seroquel 200mg HS Psych on board Plan to transfer to psych unit once bed available (4) Tobacco use disorder Counseling on smoking cessation (5) DVT prophylaxis: Ambulates/SCDs Disposition Will transfer to psych unit today Follow up with PCP once discharge from the psych unit Follow up with ID and wound care clinic Total Time Total Time Spent Total Time Spent (In Minutes): 35 minutes Total Time Includes: Examination of the Patient, Discharge Planning, Medication Reconciliation, Communication With Other Providers and Other Discharge Plan Discharge Items Patient Disposition: Transfer Behavioral Health Fac Reason For Visit: HYPOKALEMIA, PERIRECTAL ABSCESS Discharge Diagnosis: Perianal cellulitis Abscess of buttock Paranoid schizophrenia Tobacco abuse Anemia Activity: Resume your previous activity Activity Comment: as tolerated Non-emergency contact: Primary Care Provider Call non-emergency contact if: you have any medication questions and your temperature is above 101 Follow-up/Referrals: Kenneth Agrawal DO [Primary Care Provider] - Diet: Regular Addtl Attending Provider Instructions: Follow up with your primary care provider once discharge from the mental health unit Follow up with ID Dr. Dunn and wound care clinic Continue daily wound care Counseling on smoking cessation Pending Studies at Discharge: No Stand-Alone Forms: My [facility] Medications and DC Order Prescriptions: New amoxicillin-pot clavulanate [Augmentin] 875-125 mg tablet 1 tab PO BID 30 Days Qty: 60 RF: 0 Continued escitalopram oxalate [Lexapro] 10 mg tablet 10 mg PO HS RF: 0 hydroxyzine HCl 50 mg tablet 50 mg PO HS PRN (Reason: Sleep) RF: 0 quetiapine 200 mg Tablet 200 mg PO HS RF: 0 Discharge Orders: Discharge Order (Routine); Ordered 03/16/19 Ordered By: Vandana Witt Admission Data Admit Date/Time: 03/13/19 03:04 Attending Provider: Vandana Witt Admit Provider: Carter Magana Primary Care Provider: Kenneth Agrawal Other Providers: Carter Magana ; Gurinder Dunn ; Caryn Vieira ; Sidney Hughes
== END 2019-03-16 13:56 | DRG 394 ==
LOC: ED 18:55 → 3W 03-13 03:04 → SUATTDRO 03-13 03:04 → 3W 03-13 03:48

== ENCOUNTER 2019-03-16 13:02 | Inpatient (IN) ==
[2019-03-16] MEDS ORDERED: BISMUTH SUBSALICYLATE PER ML OMNICELL CHARGE PO PRN (14:46)
[2019-03-16] MEDS ORDERED: ALUMINUM/MAGNESIUM SUSP 30 ML UDC PO PRN (14:46)
[2019-03-16] MEDS ORDERED: SODIUM CHLORIDE 0.65% NA SOLN 45 ML (OCEAN) PRN (14:46)
[2019-03-16] MEDS ORDERED: ACETAMINOPHEN 325 MG TAB PO PRN (14:46)
[2019-03-16] MEDS ORDERED: MAGNESIUM HYDROXIDE SUSP 30 ML UDC PO PRN (14:46)
[2019-03-16] MEDS ORDERED: QUETIAPINE FUMARATE 25 MG TABLET PO PRN (14:56)
--- NOTE | 2019-03-16 15:16 | History & Physical ---
Date of Service March 16, 2019 Impression / Recommendations Impression Interesting 39-year-old gentleman with long history of paranoid schizophrenia and chronic perianal abscess with 302 completed by PCP following presentation where he appeared unable to care for himself in the [facility] setting with poor hygiene and concern for noncompliance with psychiatric medications. Patient adamantly denies that he was neglecting his health or hygiene but appears disheveled and somewhat illogical in thought process. Olanzapine reportedly converted to Seroquel a few months ago by outpatient psychiatrist. He has now been kicked out of two levels of domiciliares in last 2 months due to his poor self care with poor insight. There appears to be a trend of decline in social and goal directed functioning on last several months. He requires a period of monitoring to assess needs, potential threat to his own well-being as well as potential health risks to those around him associated with his chronic perianal abscess and very poor hygiene, occurring in setting of chronic schizophrenia. (1) Schizophrenia: 03/16/2019 -Patient admitted on involuntary commitment petitioned by PCP -Safety will be maintained on the locked unit beginning with every 15 minute safety checks and elopement precautions -He will be expected to participate in unit programming as appropriate -We will coordinate with outpatient psychiatrist and case management as indicated as we continue to expand database -For now he will be maintained on his home dose of Seroquel 200 mg nightly. He was educated that this is not an equivalent antipsychotic dose as compared to the 20 mg of olanzapine that he was converted from in recent months which may explain decompensation and the concern of those around him who know him however his insight is limited and he was not able to accept both likelihood of any problems that require additional treatment at this time -Patient declined consider further titration of Seroquel or alternative antipsychotic that could be converted to long-acting injectable however acknowledges that this has been recommended by his outpatient psychiatrist as well -We will make a 50 mg every 6 hours as needed dose of Seroquel available for anxiety or agitation Schizophrenia type: unspecified Qualified Code(s): F20.9 - Schizophrenia, unspecified Present on Admission?: Yes (2) Anemia: 03/16/2019 -Anemia felt stable at time of medical discharge on 03/16/2019 Anemia type: unspecified type Qualified Code(s): D64.9 - Anemia, unspecified (3) Perianal cellulitis: 03/16/2019 -Patient converted to oral Augmentin on recommendation of Dr. Dunn which will be continued on the unit. We will likely be consulting Dr. Dunn to continue to follow-up as I believe he is well familiar with the case Present on Admission?: Yes (4) Depression: 03/16/2019 -Patient denying acute mood disturbance. Denies thoughts of self-harm or harm to others -We will continue Lexapro at home dose of 10 mg nightly -Must consider mildly prolonged QTc interval of 477 on 03/12/2019 when titrating psychotropics Inventory Assets Strengths: Maintains relationships with outpatient providers Needs: Medication adjustment Risk Factors Assessment Male: Yes : No Do You Have Access To A Gun?: No Health Problems: Yes Mental Health Diagnoses: Yes Substance Use Disorders: No Previous Psychiatric Hospitalization: Yes Hopelessness: No Smoker: Yes Protective Factors Assessment : No Responsible for Young Children: No Employed: No Supportive Family: Yes Psychiatric History Identifying Data KIERA STANTON is a 39-year-old M who currently lives in the structured environment of a CRR who has a history of schizophrenia and chronic perianal abscess, and was admitted on 03/16/19 13:57 on a 302 involuntary commitment for inability to care for self from the medical floor. 302 petition completed by PCP. Chief Complaint "I do not think I need to be here. I do not understand what is going on". History of Present Illness Patient admitted thru [facility] ER 03/13/19. Per ER note, petitioning statement read "noncompliant with his medication and has been found by CRR staff to have poor hygiene, not bathing or showering, fecal matter in computer station and soiled clothing and linens. Posing a risk to self and others in the household." Patient received IV ertapenem in the ER. On the medical floor patient underwent CT pelvis with redemonstration of extensive skin thickening along the medial gluteal cleft and hypodensities measuring 11 mm and 13 mm suspicious for abscess. No evidence of fistula. He was treated for perianal cellulitis. Wound culture positive for alpha strep enterococcus and coag negative staph. Infectious disease recommended to continue IV antibiotic with ertapenem which was converted to Bactrim at discharge for long-term treatment. Anemia felt to be stable. He received smoking cessation counseling. He was maintained on his home dose of Seroquel 200 mg nightly and Lexapro 10 mg nightly. He was seen by Dr. Vieira for psychiatric consultation on 03/14/2019. She noted that the patient was denying active mood or psychotic symptoms but appeared blunted and paranoid and demonstrating an ability to maintain personal hygiene or self-care related to his abscess. This impaired self-care led to the dismissal from the personal shelter where he had lived for 1-2 years and again causing problems at the R where he has lived for only 1 month. He denied knowledge of any problems at the CRR. He could not appreciate or explain why his PCP had recommended hospitalization. He acknowledged missing a few doses of his medications due to the 2-hour window for medication administration at the CRR denied any side effects and indicated that he thought they were helpful. She was able to review recent records from his outpatient psychiatrist. On 02/21/2019 it was noted that he had been at the CRR for 2 weeks and staff indicated that the patient was not caring for himself, had not showered since arrival, and was picking and touching perianal area. He was noted to decline recommendations to go to a day treatment program or clubhouse at that time. He declined recommendations to increase antipsychotic or switch to a long-acting injectable. Apparently there was a discussion regarding pursuit of a 302 involuntary commitment for inability to care for self at that time. On 02/06/2019 he had recently been discharged from the hospitalist service for treatment of abscess. He was paranoid, limited insight. Staff suspected that he was hallucinating at night observed talking and laughing to himself alone in his room. At appointment on 01/09/2019 he was noted to have stayed up all night, pacing, talking to himself which was felt to be chronic. A month prior his olanzapine had been converted to Seroquel without any improvement. On 12/12/2018 staff indicated concern that he was not sleeping at night, isolating more, and noted that the recent increase in olanzapine have not been effective prompting the conversion to Seroquel. It appears recent max dose of olanzapine was 20 mg daily. On interview this morning patient presents similarly. He states is no reason for his confinement and plans to talk to a glost kiln operator. He seems perplexed that his mental health and manager social work workers would have anything to do with his medical health care. He reports that he has had the perianal abscess since 2002 and does not perceive it to be a big deal. He reports he has to keep it open to air which is why he refuses to bandage it. He denies that he picks at the lesion however he is observed several times during the interview placing his hands inside the back of his pants and also picks at his face, rubs his eyes, and picks at his feet. He denies feeling itchy and denies compulsively scratching or skin picking. He rationalizes that he has to keep pressure on the lesion. He expresses anger that he is here on a 302 and comments "I even tried to get in here a month ago and they told me that I could not, that I did not need it." This appears related to learning that he was going to be kicked out of the assisted living facility at which time he was feeling "a little anxious and confused I guess." He otherwise denies any changes in his recent mood baseline. He adamantly denies hallucinations and suggests that he laughs in his room at night because he is on the Internet. He does acknowledge some degree of paranoia describing a feeling that he has to "put 2 and 2 together." While he denies delusional thought content he later expresses belief that he is a special case here in the hospital and comments that he is in the free [employer], that he has done special work, and that his father has been Grammy nominated. He denies feeling in danger. He denies suicidal or homicidal ideation. He acknowledges that he has long been treated with an antipsychotic and been diagnosed with schizophrenia which is required multiple psychiatric hospitalizations however he minimizes chronic symptoms or need for medication at the present time. He does not appreciate disorganization of thoughts, unusual thoughts, changes in behavior, problems with mood, or self organization. He adamantly refuses to consider titration of Seroquel or alternative treatment agents at the present time citing lack of need for such. 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 Past Psychiatric History Previous Psych History: Patient has a history of multiple prior psychiatric hospitalizations for paranoid schizophrenia. Most recent psychiatric hospitalization at [facility] in 2012. Current Psychiatric Diagnosis: Paranoid Schizophrenia Outpatient Services: Outpatient psychiatrist Dr. Eid Case management through [employer] Previous Psych Admissions: 2013 at [facility]. [facility] [phone] Do You Have Access To A Gun?: No Past Medication Trials: Clozapine? Zyprexa long-standing intervention converted to Seroquel several months ago Lexapro long-standing intervention Hydroxyzine Patient unable to recall other prior psychotropics Allergies Allergy/AdvReac Type Severity Reaction Status Date / Time No Known Allergies Allergy Verified 03/16/19 10:53 Family History Family Mental Health History Comment: Denies Alcohol History Hx of Alcohol Use Over the Past 12 Months: No Smoking Use tobacco type: cigarettes Smoking Status: Current every day smoker Substance History Hx of Prescription Med Misuse Over the Past 12 Months: No Hx of Over the Counter Med Misuse Over the Past 12 Months: No Hx of Illegal Substances/Street Drug Use Over Past 12 Months: No Problems as a Result of Past Substance Use: None Identified Personal History [facility]ements: [facility] Highest Grade Completed: High School Graduate 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: Disabled Marital Status: Single Beliefs That Will Affect Care: None Current Legal Problems: No Psychological Trauma History Comment: denies h/o abuse Patient History Medical History Perianal abscess (Acute) Perirectal abscess (Acute) Depression (Chronic) Paranoid schizophrenia (Chronic) Tobacco use disorder (Chronic) Surgical History History of incision and drainage Family History Other No pertinent family history Social History Preferred Language: Portuguese Communication Ability: Effective Purification Director Required: No Beliefs That Will Affect Care: None marital status: Current Living Situation: Other Current Living Situation Comment: roommates Feels Safe at Home: Yes Smoking Status: Current every day smoker Tobacco Type: cigarettes ; Second Hand Exposure: Yes ; Hx Alcohol Use: Yes Alcohol type: beer Hx Substance Use: No Review of Systems Review of Systems: 10 pt ROS otherwise negative except as above Constitutional: no problem reported Respiratory: no problem reported Cardiovascular: no problem reported Gastrointestinal: no problem reported Musculoskeletal: no problem reported Neurologic: no problem reported Psychiatric: feels angry but otherwise minimizing of any psychiatric sx Hematologic / Lymphatic: thalassemia Physical Exam Mental Examination: Physical exam performed 03/16/19 on medical floor reviewed and accepted for clearance for U admission. Psychiatric: Orientation: alert, cooperative and + guarded (somewhat. "I don't really want to say too much until i speak with a glost kiln operator.) Apperance: + disheveled (wearing scrub pants. several excoriates areas on face. ) dentition poor Eye Contact: + fair eye contact Motor Behavior: steady gait and station and + psychomotor agitation (appears restless. ambulates in hallway. picks at face, feet, and body); n EPS and n tremor Speech: no pressured speech Affect: mood congruent with affect Mood: + irritable mood Thought Process: no thought blocking and thought process not incoherent mostly goal directed in response to questions. at times overinclusive and repetitive Thought Content: + preoccupation (feels unjustly confined.), + paranoid and + delusions (speaks of being a special case, free no, father grammy nominated) Suicidal Thoughts: denies suicidal thoughts, denies suicidal plan and denies suicidal intent Homicidal Thoughts: denies homicidal thoughts, denies homicidal plan and denies homicidal intent Hallucinations: no auditory hallucinations, no visual hallucinations and no tactile hallucinations Cognition: + attention not intact Insight: + limited insight Judgement: + limited judgement Vital Signs (Past 24 Hours): Last Vital Signs Temp 36.7 C 03/16/19 14:17 Pulse 83 03/16/19 14:17 Resp 14 03/16/19 14:17 BP 125/74 03/16/19 14:17 Results & Data Current Inpatient Medications Current Inpatient Medications: Current Inpatient Medications Acetaminophen (Tylenol) 650 mg PO Q4H PRN PRN Reason: Headache or Minor Fever Stop: 04/15/19 14:45 Al Hydrox/Mg Hydrox/Simethicone (Maalox) 30 ml PO Q4H PRN PRN Reason: GI Upset Stop: 04/15/19 14:45 Amoxicillin/Clavulanate Potassium (Augmentin 875mg) 1 tab PO BID CORNELIUS Stop: 03/26/19 20:59 Bismuth Subsalicylate (Kaopectate) 15 ml PO PRN PRN PRN Reason: Loose Stool Stop: 04/15/19 14:45 Escitalopram Oxalate (Lexapro Tab) 10 mg PO HS CORNELIUS Stop: 04/15/19 21:59 Hydroxyzine HCl (Vistaril) 50 mg PO HSZ PRN PRN Reason: Insomnia Stop: 04/15/19 14:45 Magnesium Hydroxide (Milk Of Magnesia) 30 ml PO DAILY PRN PRN Reason: Constipation Stop: 04/15/19 14:45 Quetiapine Fumarate (Seroquel) 200 mg PO HS CORNELIUS Stop: 04/15/19 21:59 Sodium Chloride ([place] Nasal) 1 - 2 sprays NA PRN PRN PRN Reason: Nasal Dryness/Congestion Stop: 04/15/19 14:45
[2019-03-16] MEDS: AMOXICILLIN/CLAVULANATE 875 MG TAB PO SCH (17:47)
[2019-03-16] MEDS: ESCITALOPRAM OXALATE 10 MG TAB PO SCH (21:52)
[2019-03-16] MEDS: QUETIAPINE FUMARATE 200 MG TAB PO SCH (21:52)
[2019-03-17] MEDS: AMOXICILLIN/CLAVULANATE 875 MG TAB PO SCH ×2 (09:54→18:00)
--- NOTE | 2019-03-17 15:51 | Psychiatric Progress Note ---
Date of Service March 17, 2019 Impression / Recommendations Impression Interesting 39-year-old gentleman with long history of paranoid schizophrenia and chronic perianal abscess with 302 completed by PCP following presentation where he appeared unable to care for himself in the CRR setting with poor hygiene and concern for noncompliance with psychiatric medications. Patient adamantly denies that he was neglecting his health or hygiene but appears disheveled and somewhat illogical in thought process. Olanzapine reportedly converted to Seroquel a few months ago by outpatient psychiatrist. He has now been kicked out of two levels of domiciliares in last 2 months due to his poor self care with poor insight. There appears to be a trend of decline in social and goal directed functioning on last several months. He requires a period of monitoring to assess needs, potential threat to his own well-being as well as potential health risks to those around him associated with his chronic perianal abscess and very poor hygiene, occurring in setting of chronic schizophrenia. (1) Schizophrenia: 03/16/2019 -Patient admitted on involuntary commitment petitioned by PCP -Safety will be maintained on the locked unit beginning with every 15 minute safety checks and elopement precautions -He will be expected to participate in unit programming as appropriate -We will coordinate with outpatient psychiatrist and case management as indicated as we continue to expand database -For now he will be maintained on his home dose of Seroquel 200 mg nightly. He was educated that this is not an equivalent antipsychotic dose as compared to the 20 mg of olanzapine that he was converted from in recent months which may explain decompensation and the concern of those around him who know him however his insight is limited and he was not able to accept both likelihood of any problems that require additional treatment at this time -Patient declined consider further titration of Seroquel or alternative antipsychotic that could be converted to long-acting injectable however acknowledges that this has been recommended by his outpatient psychiatrist as well -We will make a 50 mg every 6 hours as needed dose of Seroquel available for anxiety or agitation 03/17/19 -pt demonstrating cooperative behavior and attention to personal hygiene on unit -i do not appreciate outward evidence of active hallucinations today (2) Anemia: 03/16/2019 -Anemia felt stable at time of medical discharge on 03/16/2019 (3) Perianal cellulitis: 03/16/2019 -Patient converted to oral Augmentin on recommendation of Dr. Dunn which will be continued on the unit. We will likely be consulting Dr. Dunn to continue to follow-up as I believe he is well familiar with the case 03/17/19 -behavioral strategies to reduce habitual touching/picking discussed but declined by pt perceiving not a problem (4) Depression: 03/16/2019 -Patient denying acute mood disturbance. Denies thoughts of self-harm or harm to others -We will continue Lexapro at home dose of 10 mg nightly -Must consider mildly prolonged QTc interval of 477 on 03/12/2019 when titrating psychotropics Inventory Assets Strengths: Maintains relationships with outpatient providers Needs: Medication adjustment, dispositional assistance Risk Factors Assessment Male: Yes : No Do You Have Access To A Gun?: No Health Problems: Yes Mental Health Diagnoses: Yes Substance Use Disorders: No Previous Psychiatric Hospitalization: Yes Hopelessness: No Smoker: Yes Protective Factors Assessment : No Responsible for Young Children: No Employed: No Supportive Family: Yes Interval History Chief Complaint "I'm ok". Review of Systems Sleep Information Total Hours of Sleep: 7 Meal Information Percent Meal Consumed - Breakfast: 100 Percent Meal Consumed - Lunch: 10 Percent Meal Consumed - Dinner: 100 Subjective Subjective Patient was seen & assessed and interval progress reviewed with treatment team. No acute events overnight. 302 will be up on 03/21/19 at 12:45 pm. Showered yesterday w/o need for prompting. Pt reports no new information or concerns this AM. He denies need for increased antipsychotic. No evidence of response to internal stim at present. Physical Exam Psychiatric Orientation: cooperative (modestly) Apperance: + disheveled (casually groomed but appears clean) Eye Contact: + poor eye contact Motor Behavior: steady gait and station and + psychomotor agitation (appears restless. ambulates in hallway. picks at face, feet, and body) Speech: normal rate/rhythm/volume of speech Affect: + blunted affect "fine" Thought Process: goal directed thought process (superficially) Thought Content: + preoccupation (feels unjustly confined.) and + paranoid Suicidal Thoughts: denies suicidal thoughts, denies suicidal plan and denies suicidal intent Homicidal Thoughts: denies homicidal thoughts Hallucinations: no auditory hallucinations, no visual hallucinations and no tactile hallucinations Cognition: + attention not intact Insight: + limited insight Judgement: + limited judgement Vital Signs (Past 24 Hours) Last Vital Signs Temp 36.6 C 03/17/19 06:52 Pulse 80 03/17/19 06:53 Resp 18 03/17/19 06:52 BP 122/73 03/17/19 06:53 Results & Data Current Inpatient Medications Current Inpatient Medications: Current Inpatient Medications Acetaminophen (Tylenol) 650 mg PO Q4H PRN PRN Reason: Headache or Minor Fever Stop: 04/15/19 14:45 Al Hydrox/Mg Hydrox/Simethicone (Maalox) 30 ml PO Q4H PRN PRN Reason: GI Upset Stop: 04/15/19 14:45 Amoxicillin/Clavulanate Potassium (Augmentin 875mg) 1 tab PO BIDM CORNELIUS Stop: 03/26/19 17:44 Last Admin: 03/17/19 09:54 Dose: 1 tab Documented by: Bismuth Subsalicylate (Kaopectate) 15 ml PO PRN PRN PRN Reason: Loose Stool Stop: 04/15/19 14:45 Escitalopram Oxalate (Lexapro Tab) 10 mg PO HS CORNELIUS Stop: 04/15/19 21:59 Last Admin: 03/16/19 21:52 Dose: 10 mg Documented by: Hydroxyzine HCl (Vistaril) 50 mg PO HSZ PRN PRN Reason: Insomnia Stop: 04/15/19 14:45 Magnesium Hydroxide (Milk Of Magnesia) 30 ml PO DAILY PRN PRN Reason: Constipation Stop: 04/15/19 14:45 Quetiapine Fumarate (Seroquel) 200 mg PO HS CORNELIUS Stop: 04/15/19 21:59 Last Admin: 03/16/19 21:52 Dose: 200 mg Documented by: Quetiapine Fumarate (Seroquel) 50 mg PO Q6H PRN PRN Reason: Agitation Stop: 04/15/19 14:59 Sodium Chloride ([place] Nasal) 1 - 2 sprays NA PRN PRN PRN Reason: Nasal Dryness/Congestion Stop: 04/15/19 14:45 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
[2019-03-17] MEDS: QUETIAPINE FUMARATE 200 MG TAB PO SCH (22:07)
[2019-03-17] MEDS: ESCITALOPRAM OXALATE 10 MG TAB PO SCH (22:07)
[2019-03-18] MEDS: AMOXICILLIN/CLAVULANATE 875 MG TAB PO SCH ×2 (09:32→17:21)
--- NOTE | 2019-03-18 15:56 | Psychiatric Progress Note ---
Date of Service March 18, 2019 Impression / Recommendations Impression Interesting 39-year-old gentleman with long history of paranoid schizophrenia and chronic perianal abscess with 302 completed by PCP following presentation where he appeared unable to care for himself in the CRR setting with poor hygiene and concern for noncompliance with psychiatric medications. Patient adamantly denies that he was neglecting his health or hygiene but appears disheveled and somewhat illogical in thought process. Olanzapine reportedly converted to Seroquel a few months ago by outpatient psychiatrist. He has now been kicked out of two levels of domiciliares in last 2 months due to his poor self care with poor insight. There appears to be a trend of decline in social and goal directed functioning on last several months. He requires a period of monitoring to assess needs, potential threat to his own well-being as well as potential health risks to those around him associated with his chronic perianal abscess and very poor hygiene, occurring in setting of chronic schizophrenia. (1) Schizophrenia: 03/16/2019 -Patient admitted on involuntary commitment petitioned by PCP -Safety will be maintained on the locked unit beginning with every 15 minute safety checks and elopement precautions -He will be expected to participate in unit programming as appropriate -We will coordinate with outpatient psychiatrist and case management as indicated as we continue to expand database -For now he will be maintained on his home dose of Seroquel 200 mg nightly. He was educated that this is not an equivalent antipsychotic dose as compared to the 20 mg of olanzapine that he was converted from in recent months which may explain decompensation and the concern of those around him who know him however his insight is limited and he was not able to accept both likelihood of any problems that require additional treatment at this time -Patient declined consider further titration of Seroquel or alternative antipsychotic that could be converted to long-acting injectable however acknowledges that this has been recommended by his outpatient psychiatrist as well -We will make a 50 mg every 6 hours as needed dose of Seroquel available for anxiety or agitation 03/17/19 -pt demonstrating cooperative behavior and attention to personal hygiene on unit -i do not appreciate outward evidence of active hallucinations today 03/18/2019 -No outward evidence of active psychosis. Compliant with medication and demonstrating willingness to attend to personal hygiene issues. -Case management to visit tomorrow. Hopefully he will be able to return to CRR (2) Anemia: 03/16/2019 -Anemia felt stable at time of medical discharge on 03/16/2019 (3) Perianal cellulitis: 03/16/2019 -Patient converted to oral Augmentin on recommendation of Dr. Dunn which will be continued on the unit. We will likely be consulting Dr. Dunn to continue to follow-up as I believe he is well familiar with the case 03/17/19 -behavioral strategies to reduce habitual touching/picking discussed but declined by pt perceiving not a problem 03/18/2019 -Showering. Agreed to wear gauze or pad under compressive undergarment (4) Depression: 03/16/2019 -Patient denying acute mood disturbance. Denies thoughts of self-harm or harm to others -We will continue Lexapro at home dose of 10 mg nightly -Must consider mildly prolonged QTc interval of 477 on 03/12/2019 when titrating psychotropics Inventory Assets Strengths: Maintains relationships with outpatient providers Needs: Medication adjustment, dispositional assistance Risk Factors Assessment Male: Yes : No Do You Have Access To A Gun?: No Health Problems: Yes Mental Health Diagnoses: Yes Substance Use Disorders: No Previous Psychiatric Hospitalization: Yes Hopelessness: No Smoker: Yes Protective Factors Assessment : No Responsible for Young Children: No Employed: No Supportive Family: Yes Interval History Chief Complaint "Just here". Review of Systems Sleep Information Total Hours of Sleep: 7 Meal Information Percent Meal Consumed - Breakfast: 100 Percent Meal Consumed - Lunch: 60 Percent Meal Consumed - Dinner: 90 Subjective Subjective Patient was seen & assessed and interval progress reviewed with treatment team patient seems to be doing well on the unit. No acute events overnight.. He showered without prompting x2 yesterday. agronomy manager scheduled to visit tomorrow. Compliant with medications. No evidence of response to internal stim. No inappropriate laughing or speaking when no one else is around as has been reported in the outpatient setting. Was visited by his father last evening which reportedly went well. He denies acute concerns this morning. States he is "just here." Feels comfortable on the unit. Reviewed treatment goals to demonstrate ability and willingness to attend to personal care needs. I directly confronted him with sanitary concerns regarding his tendency to touch his abscess and then touch shared objects in public spaces. He appeared able to hear and except this as a reasonable concern and suggested today that he would consider wearing some gauze or pad contain by a more compressive undergarment to help manage bodily fluids. Physical Exam Psychiatric Orientation: alert, oriented x 3 and cooperative Apperance: appropriately groomed (unkempt but clean) and appeared stated age Eye Contact: good eye contact Motor Behavior: steady gait and station Speech: normal rate/rhythm/volume of speech Affect: + blunted affect ok Thought Process: goal directed thought process Thought Content: not paranoid Suicidal Thoughts: denies suicidal thoughts Homicidal Thoughts: denies homicidal thoughts Hallucinations: no auditory hallucinations and no visual hallucinations Insight: + fair insight Judgement: + fair judgement Vital Signs (Past 24 Hours) Last Vital Signs Temp 36.5 C 03/18/19 06:48 Pulse 68 03/18/19 06:48 Resp 18 03/18/19 06:48 BP 98/66 L 03/18/19 06:48 Results & Data Current Inpatient Medications Current Inpatient Medications: Current Inpatient Medications Acetaminophen (Tylenol) 650 mg PO Q4H PRN PRN Reason: Headache or Minor Fever Stop: 04/15/19 14:45 Al Hydrox/Mg Hydrox/Simethicone (Maalox) 30 ml PO Q4H PRN PRN Reason: GI Upset Stop: 04/15/19 14:45 Amoxicillin/Clavulanate Potassium (Augmentin 875mg) 1 tab PO BIDM CORNELIUS Stop: 03/26/19 17:44 Last Admin: 03/18/19 09:32 Dose: 1 tab Documented by: Bismuth Subsalicylate (Kaopectate) 15 ml PO PRN PRN PRN Reason: Loose Stool Stop: 04/15/19 14:45 Escitalopram Oxalate (Lexapro Tab) 10 mg PO HS CORNELIUS Stop: 04/15/19 21:59 Last Admin: 03/17/19 22:07 Dose: 10 mg Documented by: Hydroxyzine HCl (Vistaril) 50 mg PO HSZ PRN PRN Reason: Insomnia Stop: 04/15/19 14:45 Magnesium Hydroxide (Milk Of Magnesia) 30 ml PO DAILY PRN PRN Reason: Constipation Stop: 04/15/19 14:45 Quetiapine Fumarate (Seroquel) 200 mg PO HS CORNELIUS Stop: 04/15/19 21:59 Last Admin: 03/17/19 22:07 Dose: 200 mg Documented by: Quetiapine Fumarate (Seroquel) 50 mg PO Q6H PRN PRN Reason: Agitation Stop: 04/15/19 14:59 Sodium Chloride ([place] Nasal) 1 - 2 sprays NA PRN PRN PRN Reason: Nasal Dryness/Congestion Stop: 04/15/19 14:45 Mental Health & Subst Abuse Tx Psychiatrist Name of Psychiatrist: OZIEL Evelyn Butler Psychiatrist's Psychiatric Appointment Comment: [facility] Entry Level Assistant Manager Name of Entry Level Assistant Manager: [facility] Phone Number for Entry Level Assistant Manager: [phone] Post Discharge Appointments Contact Information Discharge Discharge Address: [address] [place] [address] (1) Schizophrenia Schizophrenia type: unspecified Qualified Code(s): F20.9 - Schizophrenia, unspecified (2) Anemia Anemia type: unspecified type Qualified Code(s): D64.9 - Anemia, unspecified
[2019-03-18] MEDS: QUETIAPINE FUMARATE 200 MG TAB PO SCH (21:13)
[2019-03-18] MEDS: ESCITALOPRAM OXALATE 10 MG TAB PO SCH (21:13)
[2019-03-19] MEDS: AMOXICILLIN/CLAVULANATE 875 MG TAB PO SCH ×2 (08:55→19:18)
--- NOTE | 2019-03-19 10:52 | Psychiatric Progress Note ---
Date of Service March 19, 2019 Impression / Recommendations Impression 39-year-old single male with a long history of paranoid schizophrenia and chronic perianal abscess with 302 completed by PCP following presentation where he appeared unable to care for himself in the CRR setting with poor hygiene and concern for noncompliance with psychiatric medications. Patient adamantly denies that he was neglecting his health or hygiene, but on the initial presentation appeared disheveled, unkempt, and malodorous, as well as suspicious with illogical thought process. His outpatient psychiatrist converted him from olanzapine to Seroquel a few months ago, and his home medications have been continued here as he has been unwilling to address them or to consider long- acting injectable. He has now been kicked out of two levels of domiciliares in last 2 months due to his poor self care and lack of insight. There appears to be a trend of decline in social and goal directed functioning over the last several months. He requires a period of monitoring to assess needs, potential threat to his own well-being as well as potential health risks to those around him associated with his chronic perianal abscess and very poor hygiene, occurring in setting of chronic schizophrenia. He appears to be doing fairly well here, his hygiene has improved significantly and he is tending to his ADLs independently and taking medications as prescribed. Although he denies all psychiatric symptoms, some paranoia is evident and will be helpful to involve his BCM and father to help in determining how far he is from baseline. He is on a 302 involuntary commitment which expires 03/21/2019. (1) Schizophrenia: 03/16/2019 -Patient admitted on involuntary commitment petitioned by PCP -Safety will be maintained on the locked unit beginning with every 15 minute safety checks and elopement precautions -He will be expected to participate in unit programming as appropriate -We will coordinate with outpatient psychiatrist and case management as indicated as we continue to expand database -For now he will be maintained on his home dose of Seroquel 200 mg nightly. He was educated that this is not an equivalent antipsychotic dose as compared to the 20 mg of olanzapine that he was converted from in recent months which may explain decompensation and the concern of those around him who know him however his insight is limited and he was not able to accept both likelihood of any problems that require additional treatment at this time. -Must consider mildly prolonged QTc interval of 477 on 03/12/2019 when titrating psychotropics -Patient declined consider further titration of Seroquel or alternative antipsychotic that could be converted to long-acting injectable however acknowledges that this has been recommended by his outpatient psychiatrist as well -We will make a 50 mg every 6 hours as needed dose of Seroquel available for anxiety or agitation 03/17/19 -pt demonstrating cooperative behavior and attention to personal hygiene on unit -i do not appreciate outward evidence of active hallucinations today 03/18/2019 -No outward evidence of active psychosis. Compliant with medication and demonstrating willingness to attend to personal hygiene issues. -Case management to visit tomorrow. Hopefully he will be able to return to R 03/19/19 -Patient continues to deny mood and psychotic symptoms, but does appear depressed and paranoid, is isolating in his room, and reluctant to engage. He is, however, doing a much better job of attending to his ADLs, with noticeably improved hygiene from the time of initial consultation on the medical service. His case management will come in today for discharge planning. -He continues to decline a long-acting injectable antipsychotic. Continue quetiapine 200 mg at bedtime. -I do not see any FLP or fasting glucose in the past year, so will order those for tomorrow for monitoring on an atypical antipsychotic. (2) Anemia: 03/16/2019 -Anemia felt stable at time of medical discharge on 03/16/2019 (3) Perianal cellulitis: 03/16/2019 -Patient converted to oral Augmentin on recommendation of Dr. Dunn which will be continued on the unit. We will likely be consulting Dr. Dunn to continue to follow-up as I believe he is well familiar with the case 03/17/19 -behavioral strategies to reduce habitual touching/picking discussed but declined by pt perceiving not a problem 03/18/2019 -Showering. Agreed to wear gauze or pad under compressive undergarment (4) Depression: 03/16/2019 -Patient denying acute mood disturbance. Denies thoughts of self-harm or harm to others -We will continue Lexapro at home dose of 10 mg nightly Inventory Assets Strengths: Maintains relationships with outpatient providers Needs: Medication adjustment, dispositional assistance Risk Factors Assessment Male: Yes : No Do You Have Access To A Gun?: No Health Problems: Yes Mental Health Diagnoses: Yes Substance Use Disorders: No Previous Psychiatric Hospitalization: Yes Hopelessness: No Smoker: Yes Protective Factors Assessment : No Responsible for Young Children: No Employed: No Supportive Family: Yes Interval History Identifying Information KIERA STANTON is a 39-year-old M who currently lives in the structured environment of a CRR who has a history of schizophrenia and chronic perianal abscess, and was admitted on 03/16/19 13:57 on a 302 involuntary commitment for inability to care for self from the medical floor. 302 petition completed by PCP. Chief Complaint "Okay, I don't really know why I am here". Review of Systems Notes Patient reports mild discomfort from his ulcer when he sits or lies on it Sleep Information Total Hours of Sleep: 10 Sleep Comments: pt appeared to sleep 3.5 hrs during evening shift. pt on q-15 minute checks Meal Information Percent Meal Consumed - Breakfast: 100 Percent Meal Consumed - Lunch: 60 Percent Meal Consumed - Dinner: 100 Subjective Subjective Patient was seen & assessed and interval progress reviewed with treatment team. Staff report the patient has been eating well, sleeping well, and bathing independently on the unit. He had a good visit with his father. He often isolates in his room, and refused most groups yesterday, although he did participate in exercise group by walking laps in the hallway. He has been compliant with medications, and has a meeting with his case management manager today. On my assessment, he was seen in his room, where he was lying on his bed awake. He states he is "fine," denies feeling sad or depressed, anxious, or fearful. He denies hallucinations and safety concerns. He repeatedly states that he does not understand why he is in the hospital, and is upset that his PCP was able to petition for a 302 involuntary commitment, stating his belief that general practitioners should not have anything to do with his mental health treatment. He continues to deny that there were any problems or concerns about him or his behavior at the CRR, and feels he is ready to be discharged immediately. He is vague when asked about his long-term housing plans, and states that he wants to discuss this with his composite science teacher Kayla when she comes in today. Physical Exam Psychiatric Orientation: alert and cooperative Apperance: appropriately dressed and appropriately groomed Eye Contact: + fair eye contact Motor Behavior: no abnormal motor movements Lying on his side in bed, fully dressed and awake Minimal, short answers Affect: + blunted affect; + mood not congruent with affect Appears guarded and suspicious "Fine." Thought Process: + concrete thought process Thought Content: + paranoid Vague answers, appears overly concerned with his PCP being involved in his psychiatric treatment Suicidal Thoughts: denies suicidal thoughts Homicidal Thoughts: denies homicidal thoughts Hallucinations: no auditory hallucinations and no visual hallucinations Cognition: language grossly intact; + recent memory not intact (Does not appear to remember multiple previous discussions about why inpatient mental health treatment was recommended) Insight: + impaired insight Judgement: + impaired judgement Vital Signs (Past 24 Hours) Last Vital Signs Temp 36.5 C 03/19/19 06:43 Pulse 63 03/19/19 06:44 Resp 18 03/19/19 06:43 BP 98/61 L 03/19/19 06:44 Results & Data Current Inpatient Medications Current Inpatient Medications: Current Inpatient Medications Acetaminophen (Tylenol) 650 mg PO Q4H PRN PRN Reason: Headache or Minor Fever Stop: 04/15/19 14:45 Al Hydrox/Mg Hydrox/Simethicone (Maalox) 30 ml PO Q4H PRN PRN Reason: GI Upset Stop: 04/15/19 14:45 Amoxicillin/Clavulanate Potassium (Augmentin 875mg) 1 tab PO BIDM CORNELIUS Stop: 03/26/19 17:44 Last Admin: 03/19/19 08:55 Dose: 1 tab Documented by: Bismuth Subsalicylate (Kaopectate) 15 ml PO PRN PRN PRN Reason: Loose Stool Stop: 04/15/19 14:45 Escitalopram Oxalate (Lexapro Tab) 10 mg PO HS CORNELIUS Stop: 04/15/19 21:59 Last Admin: 03/18/19 21:13 Dose: 10 mg Documented by: Hydroxyzine HCl (Vistaril) 50 mg PO HSZ PRN PRN Reason: Insomnia Stop: 04/15/19 14:45 Magnesium Hydroxide (Milk Of Magnesia) 30 ml PO DAILY PRN PRN Reason: Constipation Stop: 04/15/19 14:45 Quetiapine Fumarate (Seroquel) 200 mg PO HS CORNELIUS Stop: 04/15/19 21:59 Last Admin: 03/18/19 21:13 Dose: 200 mg Documented by: Quetiapine Fumarate (Seroquel) 50 mg PO Q6H PRN PRN Reason: Agitation Stop: 04/15/19 14:59 Sodium Chloride (Rankin Nasal) 1 - 2 sprays NA PRN PRN PRN Reason: Nasal Dryness/Congestion Stop: 04/15/19 14:45 Mental Health & Subst Abuse Tx Psychiatrist Name of Psychiatrist: OZIEL Evelyn Butler Psychiatrist's Psychiatric Appointment Comment: [address] [facility] Pie Baker Name of Pie Baker: [facility] Phone Number for Pie Baker: [phone] Post Discharge Appointments Contact Information Discharge Discharge Address: [address] [place] [address] (1) Schizophrenia Schizophrenia type: unspecified Qualified Code(s): F20.9 - Schizophrenia, unspecified (2) Anemia Anemia type: unspecified type Qualified Code(s): D64.9 - Anemia, unspecified
[2019-03-19] MEDS: ESCITALOPRAM OXALATE 10 MG TAB PO SCH (21:10)
[2019-03-19] MEDS: QUETIAPINE FUMARATE 200 MG TAB PO SCH (21:10)
[2019-03-20 07:59] LABS: Glucose Fasting 87 mg/dl (70-99)
[2019-03-20 08:07] LABS: Chol HDL Ratio 6; Cholesterol 171 mg/dl (0-200); HDL Cholesterol 28 mg/dl; LDL Cholesterol Calculated 86 mg/dl; Triglycerides 285 mg/dl (0-150); VLDL Cholesterol 57 mg/dl
[2019-03-20] MEDS: AMOXICILLIN/CLAVULANATE 875 MG TAB PO SCH (09:15)
--- NOTE | 2019-03-20 10:32 | Discharge Summary ---
Date of Service March 20, 2019 History of Present Illness Patient admitted thru [facility] ER 03/13/19. Per ER note, petitioning statement read "noncompliant with his medication and has been found by [facility] staff to have poor hygiene, not bathing or showering, fecal matter in computer station and soiled clothing and linens. Posing a risk to self and others in the household." Patient received IV ertapenem in the ER. On the medical floor patient underwent CT pelvis with redemonstration of extensive skin thickening along the medial gluteal cleft and hypodensities measuring 11 mm and 13 mm suspicious for abscess. No evidence of fistula. He was treated for perianal cellulitis. Wound culture positive for alpha strep enterococcus and coag negative staph. Infectious disease recommended to continue IV antibiotic with ertapenem which was converted to Bactrim at discharge for long-term treatment. Anemia felt to be stable. He received smoking cessation counseling. He was maintained on his home dose of Seroquel 200 mg nightly and Lexapro 10 mg nightly. He was seen by Dr. Vieira for psychiatric consultation on 03/14/2019. She noted that the patient was denying active mood or psychotic symptoms but appeared blunted and paranoid and demonstrating an ability to maintain personal hygiene or self-care related to his abscess. This impaired self-care led to the dismissal from the personal correction where he had lived for 1-2 years and again causing problems at the [facility] where he has lived for only 1 month. He denied knowledge of any problems at the [facility]. He could not appreciate or explain why his PCP had recommended hospitalization. He acknowledged missing a few doses of his medications due to the 2-hour window for medication administration at the [facility] denied any side effects and indicated that he thought they were helpful. She was able to review recent records from his outpatient psychiatrist. On 02/21/2019 it was noted that he had been at the [facility] for 2 weeks and staff indicated that the patient was not caring for himself, had not showered since arrival, and was picking and touching perianal area. He was noted to decline recommendations to go to a day treatment program or clubhouse at that time. He declined recommendations to increase antipsychotic or switch to a long-acting injectable. Apparently there was a discussion regarding pursuit of a 302 involuntary commitment for inability to care for self at that time. On 02/06/2019 he had recently been discharged from the hospitalist service for treatment of abscess. He was paranoid, limited insight. Staff suspected that he was hallucinating at night observed talking and laughing to himself alone in his room. At appointment on 01/09/2019 he was noted to have stayed up all night, pacing, talking to himself which was felt to be chronic. A month prior his olanzapine had been converted to Seroquel without any improvement. On 12/12/2018 staff indicated concern that he was not sleeping at night, isolating more, and noted that the recent increase in olanzapine have not been effective prompting the conversion to Seroquel. It appears recent max dose of olanzapine was 20 mg daily. On interview this morning patient presents similarly. He states is no reason for his confinement and plans to talk to a police lieutenant. He seems perplexed that his mental health and psych social worker workers would have anything to do with his medical health care. He reports that he has had the perianal abscess since 2002 and does not perceive it to be a big deal. He reports he has to keep it open to air which is why he refuses to bandage it. He denies that he picks at the lesion however he is observed several times during the interview placing his hands inside the back of his pants and also picks at his face, rubs his eyes, and picks at his feet. He denies feeling itchy and denies compulsively scratching or skin picking. He rationalizes that he has to keep pressure on the lesion. He expresses anger that he is here on a 302 and comments "I even tried to get in here a month ago and they told me that I could not, that I did not need it." This appears related to learning that he was going to be kicked out of the assisted living facility at which time he was feeling "a little anxious and confused I guess." He otherwise denies any changes in his recent mood baseline. He adamantly denies hallucinations and suggests that he laughs in his room at night because he is on the Internet. He does acknowledge some degree of paranoia describing a feeling that he has to "put 2 and 2 together." While he denies delusional thought content he later expresses belief that he is a special case here in the hospital and comments that he is in the [employer], that he has done special work, and that his father has been Grammy nominated. He denies feeling in danger. He denies suicidal or homicidal ideation. He acknowledges that he has long been treated with an antipsychotic and been diagnosed with schizophrenia which is required multiple psychiatric hospitalizations however he minimizes chronic symptoms or need for medication at the present time. He does not appreciate disorganization of thoughts, unusual thoughts, changes in behavior, problems with mood, or self organization. He adamantly refuses to consider titration of Seroquel or alternative treatment agents at the present time citing lack of need for such. 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 Physical Exam Psychiatric Orientation: alert and cooperative Apperance: appropriately dressed, appropriately groomed and appeared stated age hygiene much improved from admission Eye Contact: + fair eye contact Motor Behavior: steady gait and station and no abnormal motor movements Speech: normal rate/rhythm/volume of speech Affect: + blunted affect Mood: no depressed mood and no anxious mood "alright" Thought Process: goal directed thought process and + concrete thought process Thought Content: reality based without delusions Suicidal Thoughts: denies suicidal thoughts Homicidal Thoughts: denies homicidal thoughts Hallucinations: no auditory hallucinations and no visual hallucinations Cognition: recent memory grossly intact, attention grossly intact and language grossly intact Insight: + fair insight Judgement: + fair judgement Vital Signs (Past 24 Hours) Last Vital Signs Temp 36.5 C 03/20/19 10:21 Pulse 67 03/20/19 10:21 Resp 18 03/20/19 10:21 BP 93/60 L 03/20/19 10:21 Principal Diagnosis Schizophrenia perianal abscess Psychiatric Data Patient was hospitalized on our unit for 4 days. He was initially seen on the consult service while hospitalized medically for his perianal abscess. Although he denied active psychotic symptoms, he was guarded, paranoid and appeared more unkempt than his last hospitalization a month prior. His case was discussed with his outpatient BCM, Barbara, who expressed concerns that he had been decompensating over the past several months, had been observed on multiple occasions responding to hallucinations, sleep was irregular and he was staying up all night, was isolating more and not engaging with jail staff are in day programming, not tending to ADLs, may not have been compliant with psychi atric medications, and was neglecting his hygiene to such a degree that it posed a health risk for both himself and peers in his jail. He had been placed at the [facility] temporarily while long-term supportive housing was obtained. On exam, the patient was quite guarded and demonstrated no insight into this and essentially denied that there were any concerns about his behavior or self care, although it had been discussed with him per his outpatient team. He was continued on his home doses of quetiapine and escitalopram, and declined recommendations to transition to a long-acting injectable antipsychotic. He also declined dose increases to his quetiapine, stating that it was working well at the current dose. There was also a concern due to his prolonged QTC of 477 on EKG from 03/12/2019, so ultimately the dose was not escalated. His outpatient records from [facility] were reviewed, and his BCM and jail director met with him in the hospital. He consistently denied hallucinations, demonstrated organized thought process and behavior, was eating and sleeping well, taking medications without difficulty, and tending to his ADLs. Although he was resistant to suggestions to bathe while on the medical floor, he demonstrated an ability to independently shower twice daily and maintain good hygiene while on the behavioral health unit. His father was supportive and visited while he was on the unit, and social work met with his blended case operator and manufacturing group leader on 03/19/2019, reviewed his progress in the hospital, and discharge plans. He remained in good behavioral control while in the hospital, was calm and cooperative with staff, and had limited but appropriate interactions with staff and peers. Day of Discharge Assessment On my assessment, the patient reports his mood is "okay," says he is feeling "fine," and feels ready to leave the hospital. He denies symptoms of depression, anxiety, and psychosis, including hallucinations and paranoia. He denies side effects to medications, reports he has been compliant with them outside of the hospital, and plans to continue them. He denies any thoughts of harming himself or anyone else, and denies any safety concerns with leaving the hospital. He is in agreement with the plan to return to the [facility] while looking for long-term housing/personal correction. 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 He reports good appetite and sleep. He states willingness to follow up with outpatient appointments as detailed below. Transition of Care Transition Of Care Record: was reviewed with the patient Advance Directives Advance Directives Information Provided: Yes Advance Directives: No Mental Health Advance Directive: No Advance Directives on File: No Living Will: No Power of Charge Attendant: No Advance Directives Reason:: Declines as Mental Health Visit. Risk Factors Assessment Risk factors were mitigated by admission to the inpatient unit, use of medications to target mood and psychotic symptoms, medical treatment of his abscess, involving him in groups and therapy, coordinating care with his outpatient case operator and other medical care providers, psychoeducation about his diagnoses and the recommended treatment, and coordination with his jail. He is consistently denied psychotic and mood symptoms here, does not ap pear to be hallucinating or disorganized, is tending to his ADLs independently including regular bathing, eating, and sleeping, and is taking medications as ordered. He has not been demonstrating problems with personal hygiene or wound care here, is stating willingness to follow up as an outpatient, and has consistently denied thoughts of harming himself or others. He has been calm, cooperative, and pleasant. He is requesting discharge, and as he is no longer at acute risk of harm to himself or others, can be managed as an outpatient at this time. Male: Yes : No Do You Have Access To A Gun?: No Health Problems: Yes Mental Health Diagnoses: Yes Substance Use Disorders: No Previous Psychiatric Hospitalization: Yes Hopelessness: No Smoker: Yes Protective Factors Assessment : No Responsible for Young Children: No Employed: No Supportive Family: Yes Tobacco Cessation at Discharge Tobacco Cessation Medication Prescribed at Discharge: Offered & Pt Refused Total Time Total Time Spent: Greater Than 30 Minutes Total Time Includes: Examination of the patient, Discharge Planning and Medication Reconciliation Discharge Data Lab Results 03/20/19 07:03 Fasting Glucose 87 Triglycerides 285 H Cholesterol 171 LDL Cholesterol, Calc 86 VLDL Cholesterol, Calc 57 HDL Cholesterol 28 Cholesterol/HDL Ratio 6 Hospital Course (1) Schizophrenia: 03/16/2019 -Patient admitted on involuntary commitment petitioned by PCP -Safety will be maintained on the locked unit beginning with every 15 minute safety checks and elopement precautions -He will be expected to participate in unit programming as appropriate -We will coordinate with outpatient psychiatrist and case management as indicated as we continue to expand database -For now he will be maintained on his home dose of Seroquel 200 mg nightly. He was educated that this is not an equivalent antipsychotic dose as compared to the 20 mg of olanzapine that he was converted from in recent months which may explain decompensation and the concern of those around him who know him however his insight is limited and he was not able to accept both likelihood of any problems that require additional treatment at this time. -Must consider mildly prolonged QTc interval of 477 on 03/12/2019 when titrating psychotropics -Patient declined consider further titration of Seroquel or alternative antipsychotic that could be converted to long-acting injectable however acknowledges that this has been recommended by his outpatient psychiatrist as well -We will make a 50 mg every 6 hours as needed dose of Seroquel available for anxiety or agitation 03/17/19 -pt demonstrating cooperative behavior and attention to personal hygiene on unit -i do not appreciate outward evidence of active hallucinations today 03/18/2019 -No outward evidence of active psychosis. Compliant with medication and demonstrating willingness to attend to personal hygiene issues. -Case management to visit tomorrow. Hopefully he will be able to return to [facility] 03/19/19 -Patient continues to deny mood and psychotic symptoms, but does appear depressed and paranoid, is isolating in his room, and reluctant to engage. He is, however, doing a much better job of attending to his ADLs, with noticeably improved hygiene from the time of initial consultation on the medical service. His case management will come in today for discharge planning. -He continues to decline a long-acting injectable antipsychotic. Continue quetiapine 200 mg at bedtime. -I do not see any FLP or fasting glucose in the past year, so will order those for tomorrow for monitoring on an atypical antipsychotic. 03/20/19 -Fasting glucose 87, fasting lipid profile notable for elevated triglycerides 285, otherwise within normal limits. (2) Depression: 03/16/2019 -Patient denying acute mood disturbance. Denies thoughts of self-harm or harm to others -We will continue Lexapro at home dose of 10 mg nightly 03/20/19 -Patient consistently denied symptoms of depression while in the hospital, but affect was fairly flat and he frequently isolated in his room. He did come out of his room to eat, and was frequently seen walking laps around the unit for exercise, but had little interaction with others. Could consider titration of escitalopram in the future, however he declined medication changes while here. (3) Perianal cellulitis: 03/16/2019 -Patient converted to oral Augmentin on recommendation of Dr. Dunn which will be continued on the unit. We will likely be consulting Dr. Dunn to continue to follow-up as I believe he is well familiar with the case 03/17/19 -behavioral strategies to reduce habitual touching/picking discussed but declined by pt perceiving not a problem 03/18/2019 -Showering. Agreed to wear gauze or pad under compressive undergarment (4) Anemia: 03/16/2019 -Anemia felt stable at time of medical discharge on 03/16/2019 Mental Health & Subst Abuse Tx Psychiatrist Name of Psychiatrist: [facility] - Dr. Butler Psychiatrist's Date of Appointment with Psychiatrist: 03/22/19 Time of Appointment with Psychiatrist: 11:15am Psychiatric Appointment Comment: [address] [facility] Drop Wire Operator Name of Drop Wire Operator: [facility] Phone Number for Drop Wire Operator: [phone] Date of Appointment with Drop Wire Operator: 03/22/19 Time of Appointment with Drop Wire Operator: 4pm Case Management Appointment Comment: At the [facility]. Post Discharge Appointments Primary Care Physician Name Of Family Doctor: Benita Demarco Primary Care Provider Appointment Comment: [address] [facility], [place] [address] Smoking Cessation Counseling Tobacco Cessation Medication Prescribed at Discharge: Offered & Pt Refused Contact Information Discharge Discharge Address: [address] [place] [id number] Discharge Plan Discharge Items Patient Disposition: [facility] Prison Reason For Visit: PSYCHOSIS Discharge Diagnosis: Schizophrenia Perianal abscess Activity: Per Instructions section Non-emergency contact: Primary Care Provider, Psychiatrist, Therapist and Business Development Engineer Call non-emergency contact if: you have any medication questions and your symptoms worsen Follow-up/Referrals: Kenneth Demarco DO [Primary Care Provider] - Diet: Regular Addtl Attending Provider Instructions: SPECIAL CARE INSTRUCTIONS: 1. Follow through with your scheduled aftercare appointments. If unable to keep an appointment, please call to reschedule. You will need to follow up with Dr. Dunn and the wound care clinic as recommended. 2. Take your medication only as prescribed. Medication should not be changed or stopped without the approval of your doctor. In the event of worsening symptoms or concerns about side effects, contact your doctor immediately. 3. Utilize new healthy coping skills, anger management skills, and stress management skills learned during your hospitalization. Journal feelings and process them with a support person. Identify stressors or situations that may result in relapse, deterioration or inappropriate behaviors and develop a plan to deal with those issues. 4. If your coping skills are ineffective and you are in crisis, contact your outpatient providers for direction. If unable to reach your providers, please call the CAN HELP LINE AT or go to the closest Emergency Room. 5. Avoid alcohol and un-prescribed drugs. 6. You have been provided with the Mental Health Advance Directives Pamphlet for your review. AFTERCARE APPOINTMENTS: * Please call your insurance company prior to your scheduled appointment to confirm your aftercare providers are covered. Take your insurance information to your appointments. WHO TO CALL AND WHEN: Medical Emergencies: For questions or emergencies related to your hospital stay, please contact the Inpatient Behavioral Health Unit at [phone]. A cpc is on-call 13/12 for the Behavioral Health Unit for emergencies At any time you feel your situation is an emergency, you may also call 911 immediately. Your Doctors Instructions noted above were prepared by provider Caryn Vieira MD. Pending Studies at Discharge: No Stand-Alone Forms: My [employer], Smoking Cessation Skilled Items Patient informed of condition?: Yes DNR: No Discharge Level of Care: Other Communicable Disease: No Discharge Prognosis: Improving Lines: None Urinary Catheter: No Medications and DC Order Prescriptions: New amoxicillin-pot clavulanate 875-125 mg Tablet 1 tab PO BIDM 30 Days Qty: 60 RF: 0 escitalopram oxalate 10 mg Tablet 10 mg PO HS 30 Days Qty: 30 RF: 0 Continued amoxicillin-pot clavulanate [Augmentin] 875-125 mg tablet 1 tab PO BID 30 Days Qty: 60 RF: 0 quetiapine 200 mg Tablet 200 mg PO HS RF: 0 Discontinued hydroxyzine HCl 50 mg tablet 50 mg PO HS PRN (Reason: Sleep) RF: 0 Discharge Orders: Discharge Order (Routine); Ordered 03/20/19 Ordered By: Caryn Vieira Admission Data Admit Date/Time: 03/16/19 13:57 Attending Provider: Caryn Vieira Admit Provider: Osval[address] Primary Care Provider: Kenneth Demarco Other Interventions: Discharge Summary Assessment (RN) Last Done: 03/20/19 10:21 PSY Interdisciplinary Discharge Planning Last Done: 03/20/19 13:07 DC Date/Time DO NOT enter until pt leaves facility: 03/20/19 14:24 Coding Level of Care Code 37059 D/C day mgmt > 30 min Diagnoses Schizophrenia F20.9 Schizophrenia type: unspecified Anemia D64.9 Anemia type: unspecified type Perianal cellulitis K61.0 Depression F32.9
== END 2019-03-20 14:24 | disposition home or self-care (01) | DRG 885 ==
LOC: 3S 13:57 → SUATTDRO 13:57

== ENCOUNTER 2019-06-22 12:32 | Inpatient (IN) ==
[2019-06-22] MEDS ORDERED: SODIUM CHLORIDE 0.9% 500 ML IV SCH (13:00)
[2019-06-22 13:25] LABS: Basophils # (auto) 0.02 K/uL (0-0.2); Basophils % (auto) 0.4 %; Hematocrit (blood only) 29.8 % (42-52); Hemoglobin 9.8 g/dL (14.0-18.0); Immature Granulocytes # (auto) 0.02 K/uL (0.00-0.02); Immature Granulocytes % (auto) 0.4 %; Lymphocytes # (auto) 1.82 K/uL (1.2-3.4); Lymphocytes % (auto) 33.1 %; Mean Corpuscular Hemoglobin 28.9 pg (25-34); Mean Corpuscular Hgb Conc 32.9 g/dL (32-36); Mean Corpuscular Volume 87.9 fL (80-100); Mean Platelet Volume 9.2 fL (7.4-10.4); Monocytes # (auto) 0.29 K/uL (0.11-0.59); Monocytes % (auto) 5.3 %; Neutrophils # (auto) 3.35 K/uL (1.4-6.5); Neutrophils % (auto) 60.8 %; Platelet Count 243 K/uL (130-400); RDW Coefficient of Variation 16.9 % (11.5-14.5); RDW Standard Deviation 54.4 fL (36.4-46.3); Red Blood Count 3.39 M/uL (4.7-6.1)
[2019-06-22 13:44] LABS: Acetaminophen < 2 ug/ml (10-30); Salicylate 7.7 mg/dl (2.8-20)
[2019-06-22 14:00] LABS: Albumin Globulin Ratio 0.6 (0.9-2); Albumin Level 3.1 gm/dl (3.4-5.0); BUN Creatinine Ratio 16.2 (10-20); Bilirubin,Total 0.4 mg/dl (0.2-1); Calcium 7.7 mg/dl (8.5-10.1); Creatinine Clr Calc Pharmacy 80.8 ml/min; Est GFR (African American) 85.4; Est GFR (Non-African American) 73.7; Potassium 2.4 mmol/L (3.5-5.1); Thyroid Stimulating Hormone 0.636 uIu/ml (0.300-4.500); Total Protein 8.1 gm/dl (6.4-8.2)
[2019-06-22] MEDS ORDERED: PIPERACILLIN/TAZOBACTAM 4.5 GM/120 ML BAG IV ONE (14:01)
[2019-06-22] MEDS ORDERED: POTASSIUM CHLORIDE 20 MEQ TABCR PO STA (14:01)
[2019-06-22] MEDS ORDERED: POTASSIUM CHLORIDE / WTR 10 MEQ/100 ML PLCT IV ONE (14:01)
[2019-06-22] MEDS ORDERED: PIPERACILL/TAZOBAC CONSULT ACTIVE PRN (14:01)
[2019-06-22] MEDS ORDERED: IOVERSOL 100ml IV PRN (15:35)
[2019-06-22] MEDS ORDERED: SODIUM CHLORIDE 0.9% 1000ML 1,000 ML IV ONE (15:52)
--- NOTE | 2019-06-22 15:53 | CT Scan Report ---
CT pelvis w/IV con only CLINICAL HISTORY: gluteal/perianal infection COMPARISON STUDY: CT of the pelvis March 12, 2019. TECHNIQUE: Axial images of the pelvis were obtained following intravenous injection of 94 cc of Optir ay 320 IV. Automated exposure control was utilized for the study. A dose lowering technique was util ized adhering to the principles of ALARA. FINDINGS: Prominent bilateral inguinal lymph nodes are unchanged. No fracture is noted. There is no C T evidence for osteomyelitis within the pelvis or hips. Extensive subcutaneous induration and skin th ickening with associated infiltration is again noted within the bilateral and inferior gluteal soft t issues. This extends into the left ischioanal fossa. No definite perianal/perirectal fistula. Overall , findings have increased when compared to CT of March 12, 2019. Similar findings have been shown o n multiple previous studies. Multiple small rim-enhancing fluid collections within the within the bobby ateral gluteal and inferior gluteal soft tissues are noted. The largest is a 2 cm collection within t he right inferior medial gluteal fold. Left gluteal phlegmon is noted. IMPRESSION: Extensive soft tissue induration/inflammation with skin thickening involving the bilater al gluteal and inferior gluteal soft tissues extends into the left ischioanal fossa. This has progres sed when compared to CT of March 12, 2019. Multiple small associated abscesses, measuring up to 2 c m, and phlegmon. ACT 112: Negative or not required by law. Electronically signed by: Jimbo Shine M.D. 06/22/2019 3:51 PM
--- NOTE | 2019-06-22 16:38 | XRay Report ---
XR chest 1V portable HISTORY: 39 years-old Male weakness acute weakness COMPARISON: CT abdomen and pelvis 01/21/2019, chest radiograph 01/20/2019 TECHNIQUE: Portable AP view of the chest FINDINGS: Cardiac silhouette is upper limits of normal in size, unchanged. There is no pneumothorax, pleural ef fusion, focal airspace consolidation or overt pulmonary edema. Bones appear normal. IMPRESSION: No acute process. ACT 112: Negative or not required by law. The above report was generated using voice recognition software. It may contain grammatical, syntax o r spelling errors. Electronically signed by: Jim Bishop M.D. 06/22/2019 4:37 PM
--- NOTE | 2019-06-22 17:16 | History & Physical Report ---
Date of Service June 22, 2019 Assessment & Plan (1) Abscess, gluteal: (2) Cellulitis, gluteal: This is a 39yo M with a PMH of paranoid schizophrenia, depression, hidradenitis suppurativa, chronic perirectal abscess, tobacco use disorder and anemia who presents after 302 was completed due to patient being unable to care for himself in detention setting. -History of gluteal and saloni-rectal abscesses with chronic buttock pain. Follows with PCP Dr. Agrawal and has been prescribed antibiotics this past March and April but patient denies taking them -Infection complicated by patient being non-compliant with care at detention. Has reportedly refused to bathe for the past month and has purulent drainage coming from abscess area -History of multiple I&Ds at [facility] in the past -Non-toxic appearance, afebrile and no leukocytosis, lactic acid norml -Start Unasyn empirically with wound and blood cultures ordered -Routine surgical consult -Wound care (3) Hypokalemia: Initial K of 2.4 in setting of poor diet -Given 40mg PO KCl in ED along with 10 mEq K rider -Will continue IV fluid resuscitation with NSS + 20 KCl @ 125 ml/hr -Check BMP in AM (4) Paranoid schizophrenia: Has been taking Seroquel intermittently at home -Continue Seroquel 200mg HS -Psych consult (5) Depression: Unclear if taking Lexapro currently -Will defer to psych in setting of prolonged qtc (6) Anemia: Multifactorial with history of thalassemia and chronic infection -Hgb 9.8 currently. Hgb fluctuates in the past but this looks to be close to baseline -Continue to monitor (7) Tobacco use disorder: Smokes 1/2 ppd -Offered nicotine patch but refused DVT Ppx: SCDs Code status: FULL PCP: Tanja Dispo: Admitted to PCU. Discharge planning ordered. Patient seen in collaboration with Dr. Jimenez. Please see addendum. History of Present Illness Chief Complaint: Gluteal abscesses Primary Care Provider: Kenneth Agrawal DO This is a 39yo M with a PMH of paranoid schizophrenia, depression, hidradenitis suppurativa, chronic perirectal abscess, tobacco use disorder and anemia who presents after 302 was completed due to patient being unable to care for himself in detention setting. Patient with history of gluteal and saloni-rectal abscesses with chronic buttock pain. Follows with PCP Dr. Agrawal and has been prescribed antibiotics this past March and April but patient denies taking them. Most recently prescribed cefdinir at the beginning of April. Perirectal abscesses complicated by patient being non-compliant with care at detention. Has reportedly refused to bathe for the past month and has purulent drainage coming from abscess area. Patient denies any fever, chills, lightheadedness, visual changes, chest pain, SOB, nausea, vomiting, abdominal pain, dysuria or diarrhea. Has been moving bowel regularly. States he has been taking his Seroquel and Lexapro medications "off and on". Does complain of generalized weakness with known multifactorial anemia due to known thalassemia and chronic infection. History of I&D of rectal abscess in 2007, 2008 and 2013 at [facility]. Allergies Allergy/AdvReac Type Severity Reaction Status Date / Time Penicillins AdvReac Unknown unknown Unverified 04/04/19 10:22 Home Medications Home Medications Medication Instructions Recorded Confirmed Type escitalopram oxalate 10 mg tablet 10 mg PO HS tab 01/17/18 06/22/19 History quetiapine 200 mg PO HS 01/20/19 06/22/19 History Past Med/Surg History Medical History (Updated 06/22/19 @ 18:12 by Madison Rooney PA-C) Depression (Chronic) Paranoid schizophrenia (Chronic) Paranoid schizophrenia Perianal abscess (Acute) Perirectal abscess (Acute) Tobacco use disorder (Chronic) Surgical History History of incision and drainage Family History Other Cancer Social History (Updated 06/22/19 @ 18:07 by Madison Rooney PA-C) Preferred Language: Turkish Communication Ability: Effective Secondary Connector Armature Required: No Beliefs That Will Affect Care: None marital status: single Current Living Situation: Boarding Home Current Living Situation Comment: roommates, lives in detention current occupational status: disabled Other Information That Helps Us Care for You: No Feels Safe at Home: Yes Safety Concerns: Feels Safe At This Time Smoking Status: Heavy tobacco smoker Tobacco Type: cigarettes ; packs per day: 0.5 ; Do You Dip or Chew Tobacco: No ; Second Hand Exposure: No ; Tobacco Cessation Education Requested by Patient: No Hx Alcohol Use: No Hx Substance Use: No during the past year weight has: remained stable Review of Systems Review of Systems: At least ten systems reviewed and negative except as noted in the HPI. Physical Exam Physical Exam: General Appearance: WD/WN, vitals as above, thin, poorly groomed male, pleasant, conversing easily Head: normocephalic, atraumatic Eyes: normal inspection, PERRL, conjunctivae normal, anicteric sclerae ENT: external ear and nose normal, oropharynx normal Neck: trachea midline, no thyromegaly normal visual inspection Respiratory: lungs clear to auscultation, no wheeze, rales, rhonchi. Normal insp/exp effort, no accessory muscle use Cardiovascular: regular rate, rhythm, no murmur, normal peripheral pulses. Vessels: no JVD or carotid bruit Chest: normal inspection of chest Abdomen/GI: normal bowel sounds, soft, nontender, no hepatosplenomegaly Extremities/Musculoskelatal: no cyanosis or clubbing, extremities motor strength 5/5 Neurologic: PERRL, EOMI, accommodation nl, no face palsy, no dysarthria, CN's II-XI intact bilaterally and moves all extremities Psychiatric: A+Ox3, flattened affect Skin: normal color, warm/dry. + multiple indurated lesions with surrounding erythema and purulent discharge on bilateral buttocks Results & Data Vital Signs (Past 12 Hours) Vital Signs Temp Pulse Pulse Resp BP BP Pulse Ox 06/22/19 16:07 71 16 94/43 L 100 06/22/19 16:05 72 16 100 06/22/19 16:03 72 14 75/43 L 100 06/22/19 15:40 79 14 85/40 L 85 L 06/22/19 14:45 75 16 101/51 L 91 06/22/19 12:45 37.3 C 78 14 110/58 L 93 Laboratory Results Short CBC 06/22/19 Range/Units 13:04 WBC 5.50 (4.8-10.8) K/uL Hgb 9.8 L (14.0-18.0) g/dL Hct 29.8 L (42-52) % Plt Count 243 (130-400) K/uL BMP 06/22/19 13:04 Sodium 135 L Potassium 2.4 L* Chloride 93 L Carbon Dioxide 36 H BUN 20 H Creatinine 1.22 Glucose 85 Calcium 7.7 L Liver Function 06/22/19 Range/Units 13:04 Total Bilirubin 0.4 (0.2-1) mg/dl AST 152 H (15-37) U/L ALT 46 (12-78) U/L Alkaline Phosphatase 75 (45-117) U/L Albumin 3.1 L (3.4-5.0) gm/dl Diagnostic Findings CXR: IMPRESSION: No acute process. Pelvis CT: IMPRESSION: Extensive soft tissue induration/inflammation with skin thickening involving the bilateral gluteal and inferior gluteal soft tissues extends into the left ischioanal fossa. This has progressed when compared to CT of March 12, 2019. Multiple small associated abscesses, measuring up to 2 cm, and phlegmon. Code Status & VTE Plan VTE Prophylaxis Plan VTE Prophylaxis will be ordered: Yes Supervising Physician Co-Signing Physician Notes Attending addendum: The patient was seen and examined in the emergency room He has apparently schizophrenia and was brought in from detention as he was not been able to take care of himself. He was 302ed He has history of hidradenitis suppurativa and chronic bilateral gluteal abscesses No fever at presentation but his blood pressure noted to be very low On examination No apparent distress at rest Blood pressure noted to be low at upper 60s but coming up with intravenous fluid bolus Chest-clear to auscultate bilaterally Heart-S1-S2, regular Abdomen-benign Extremities-no edema Examination of the gluteal region both sides showed extensive skin changes secondary to chronic abscesses and evidence of multiple I&D's. DATA DEVELOPER-alert and awake, oriented Admission labs and imaging studies noted Extensive soft tissue induration/inflammation skin thickening involving the bilateral rib rear end inferior gluteal soft tissues extends into the left ischio anal fossa when noted CT of the pelvis Surgery consult for possible I&D Antibiotic has been started Agree with assessment plan as outlined above by NEREIDA Moreira Dr (1) Anemia Anemia type: unspecified type Qualified Code(s): D64.9 - Anemia, unspecified
--- NOTE | 2019-06-22 17:28 | Electrocardiogram Report ---
Test Reason : Blood Pressure : / mmHG Vent. Rate : 074 BPM Atrial Rate : 074 BPM P-R Int : 148 ms QRS Dur : 104 ms QT Int : 434 ms P-R-T Axes : 022 078 066 degrees QTc Int : 481 ms Normal sinus rhythm Prolonged QT Abnormal ECG When compared with ECG of 12-MAR-2019 22:13, No significant change was found Confirmed by Felipe Knight ([id number]) on 06/22/2019 5:27:55 PM Referred By: ED Confirmed By:Brad Knight
[2019-06-22] MEDS ORDERED: AMPICILLIN/SULBACTAM CONSULT ACTIVE PRN (19:14)
--- NOTE | 2019-06-22 19:40 | Emergency Department Note ---
Entered by Perla Luis acting as a scribe for Galo Rivera M.D. History of Present Illness General Chief complaint: Mental Health Evaluation Time Seen by Provider: 06/22/19 12:36 Source: patient and other (leather case finisher) History of Present Illness Provider complaint: mental health evaluation Onset (ago): hour(s) (SEWER HAND) Location: head Severity: similar to prior episodes Relieved By: + none Exacerbated By: + none Associated symptoms: + other (+buttocks pain) The patient is a 39 year old male who presents to the Emergency Room with complaints of mental health evaluation. Per the leather case finisher, the patient lives at his care facility and has not been taking his psych medication. She notes that the staff has been prompting him to take them and he refused. She reports that the patient was here for a perirectal abscess recently and he was prescribed antibiotics. She notes that the patient has not been taking his antib iotics medications and his abscess has been draining throughout the care facility. She notes that the patient has been spreading his drainage and fecal matter on his stuff. She mentions that for the past 2 weeks he has been increasingly aggressive. The patient states that he has pain in his buttocks. He notes that he has drainage. He reports that he is not on any antibiotics. He states that he washed his site yesterday. He notes that he has a fever. He notes that he is eating and drinking normally. Home Medications Home Medications Medication Instructions Recorded Confirmed Type escitalopram oxalate 10 mg tablet 10 mg PO HS tab 01/17/18 06/22/19 History quetiapine 200 mg PO HS 01/20/19 06/22/19 History Allergies Allergy/AdvReac Type Severity Reaction Status Date / Time Penicillins AdvReac Unknown unknown Unverified 04/04/19 10:22 Past Med/Surg History Medical History (Updated 06/22/19 @ 18:12 by Madison Rooney PA-C) Depression (Chronic) Paranoid schizophrenia (Chronic) Paranoid schizophrenia Perianal abscess (Acute) Perirectal abscess (Acute) Tobacco use disorder (Chronic) Surgical History History of incision and drainage Family History Other Cancer Social History (Updated 06/22/19 @ 18:07 by Madison Rooney PA-C) Preferred Language: Malay Communication Ability: Effective Wound Care Technician Required: No Beliefs That Will Affect Care: None marital status: single Current Living Situation: Boarding Home Current Living Situation Comment: roommates, lives in [place] current occupational status: disabled Other Information That Helps Us Care for You: No Feels Safe at Home: Yes Safety Concerns: Feels Safe At This Time Smoking Status: Heavy tobacco smoker Tobacco Type: cigarettes ; packs per day: 0.5 ; Do You Dip or Chew Tobacco: No ; Second Hand Exposure: No ; Tobacco Cessation Education Requested by Patient: No Hx Alcohol Use: No Hx Substance Use: No during the past year weight has: remained stable Review of Systems A total of 10 systems reviewed and were otherwise negative Physical Exam Vital Signs Vital Signs - 24 hr 06/22/19 12:45 06/22/19 14:45 06/22/19 15:40 Temperature 37.3 C Temperature Source Oral Pulse Rate 78 Pulse Rate [Right Finger] 75 79 Pulse Rate from SpO2 Sensor Respiratory Rate 14 16 14 Respiratory Effort / Characteristics Non-Labored Spontaneous Non-Labored Spontaneous Non-Labored Respiratory Depth Normal Normal Normal Blood Pressure 110/58 L Blood Pressure [Left Arm] 101/51 L 85/40 L Blood Pressure Mean 75 Blood Pressure Mean [Left Arm] 67 55 Blood Pressure Position [Left Arm] Lying Pulse Oximetry 93 91 85 L Oxygen Delivery Method Room Air Room Air Room Air Sepsis Recent Fever Within 48 Hours No Sepsis New/Unexplained Change in Mental Status No Sepsis Action Taken by Nursing No Action Required 06/22/19 16:03 06/22/19 16:05 06/22/19 16:07 Temperature Temperature Source Pulse Rate 72 72 71 Pulse Rate [Right Finger] Pulse Rate from SpO2 Sensor 71 72 71 Respiratory Rate 14 16 16 Respiratory Effort / Characteristics Respiratory Depth Blood Pressure 75/43 L 94/43 L Blood Pressure [Left Arm] Blood Pressure Mean 58 58 Blood Pressure Mean [Left Arm] Blood Pressure Position [Left Arm] Pulse Oximetry 100 100 100 Oxygen Delivery Method Sepsis Recent Fever Within 48 Hours Sepsis New/Unexplained Change in Mental Status Sepsis Action Taken by Nursing 06/22/19 16:08 06/22/19 16:30 06/22/19 16:31 Temperature Temperature Source Pulse Rate 73 69 67 Pulse Rate [Right Finger] Pulse Rate from SpO2 Sensor 72 69 67 Respiratory Rate 19 18 17 Respiratory Effort / Characteristics Respiratory Depth Blood Pressure 124/69 115/68 Blood Pressure [Left Arm] Blood Pressure Mean 82 80 Blood Pressure Mean [Left Arm] Blood Pressure Position [Left Arm] Pulse Oximetry 99 100 100 Oxygen Delivery Method Sepsis Recent Fever Within 48 Hours Sepsis New/Unexplained Change in Mental Status Sepsis Action Taken by Nursing 06/22/19 16:32 06/22/19 17:00 06/22/19 17:01 Temperature Temperature Source Pulse Rate 70 79 76 Pulse Rate [Right Finger] Pulse Rate from SpO2 Sensor 70 77 Respiratory Rate 21 16 14 Respiratory Effort / Characteristics Respiratory Depth Blood Pressure Blood Pressure [Left Arm] Blood Pressure Mean Blood Pressure Mean [Left Arm] Blood Pressure Position [Left Arm] Pulse Oximetry 100 92 Oxygen Delivery Method Sepsis Recent Fever Within 48 Hours Sepsis New/Unexplained Change in Mental Status Sepsis Action Taken by Nursing 06/22/19 17:04 Temperature Temperature Source Pulse Rate 75 Pulse Rate [Right Finger] Pulse Rate from SpO2 Sensor 75 Respiratory Rate 12 Respiratory Effort / Characteristics Respiratory Depth Blood Pressure 90/42 L Blood Pressure [Left Arm] Blood Pressure Mean 51 Blood Pressure Mean [Left Arm] Blood Pressure Position [Left Arm] Pulse Oximetry 94 Oxygen Delivery Method Sepsis Recent Fever Within 48 Hours Sepsis New/Unexplained Change in Mental Status Sepsis Action Taken by Nursing GENERAL: Awake, alert, poorly kept, malodorous, in no distress HENT: Normocephalic, atraumatic EYES: Normal conjunctiva. Sclera non-icteric. RESPIRATORY: Clear to auscultation. Normal respiratory effort. CARDIAC: Normal rate. Normal rhythm. Extremities warm and well perfused. GI: Soft, non-distended. No tenderness to palpation. No rebound or guarding. RECTAL: Deferred. MUSCULOSKELETAL: Atraumatic. Chest examination reveals no tenderness. : With RN, bilateral gluteal and perianal skin changes, mild fluctuance, serosanguineous purulent drainage. LOWER EXTREMITIES: Calves are equal size bilaterally and non-tender. No edema NEURO: Normal sensorium. No sensory or motor deficits noted. No facial droop. Flat affect. Denies SI. SKIN: Warm and dry. No jaundice noted. Course Course 1248: The patient was evaluated in room A5, and a complete history and physical examination were performed. 1637: I reviewed the patient's case with Madison Joy. Dr. Tony- Hospitalist [facility] will evaluate the patient for further management. Administered Medications Discontinued Medications Sodium Chloride (Nss) 500 mls @ 999 mls/hr IV .Q31M CORNELIUS Stop: 06/22/19 13:30 Last Infusion: 06/22/19 14:19 Dose: 0 mls/hr Documented by: [id number] Admin: 06/22/19 13:19 Dose: 999 mls/hr Documented by: [id number] Potassium Chloride (K Tylor / Wtr) 10 meq in 100 mls @ 100 mls/hr IV ONE ONE Stop: 06/22/19 15:00 Last Infusion: 06/22/19 15:27 Dose: 0 mls/hr Documented by: [id number] Admin: 06/22/19 14:19 Dose: 100 mls/hr Documented by: [id number] Piperacillin Sod/Tazobactam Sod (Zosyn) 4.5 gm in 120 mls @ 240 mls/hr IV NOW ONE Stop: 06/22/19 14:30 Last Infusion: 06/22/19 14:50 Dose: 0 mls/hr Documented by: [id number] Admin: 06/22/19 14:19 Dose: 240 mls/hr Documented by: [id number] Sodium Chloride (Nss 1000ml) 1,000 mls @ 999 mls/hr IV .Q1H1M ONE Stop: 06/22/19 16:52 Last Infusion: 06/22/19 17:51 Dose: 0 mls/hr Documented by: [id number] Admin: 06/22/19 16:19 Dose: 999 mls/hr Documented by: [id number] Ioversol (Optiray 320 100ml) 94 ml IV ONCE PRN PRN Reason: Interaction Checking Stop: 06/26/19 15:34 Last Admin: 06/22/19 15:35 Dose: 94 ml Documented by: [id number] Potassium Chloride (Klor-Con M20) 40 meq PO NOW STA Stop: 06/22/19 14:02 Last Admin: 06/22/19 14:19 Dose: 40 meq Documented by: [id number] Medical Decision Making Differential Diagnosis Differential diagnosis: Etiologies such as mood disorder, infection, hypoglycemia, electrolyte abnormalities, cardiac sources, intracerebral event, toxicologic, neurologic, cellulitis, abscess, MRSA infection, DVT, necrotizing fasciitis, dermatitis, drug eruption, as well as others were entertained. Medical Records Attestation: I reviewed the patient's medical records. Home Medications Current Medication List: was personally reviewed by me Laboratory Data Attestation: I reviewed the patient's lab results. Result diagrams: 06/22/19 13:04 06/22/19 13:04 Lab Results 06/22/19 06/22/19 06/22/19 Range/Units 13:04 13:04 13:04 WBC 5.50 (4.8-10.8) K/uL RBC 3.39 L (4.7-6.1) M/uL Hgb 9.8 L (14.0-18.0) g/dL Hct 29.8 L (42-52) % MCV 87.9 (80-100) fL MCH 28.9 (25-34) pg MCHC 32.9 (32-36) g/dL RDW Std Deviation 54.4 H (36.4-46.3) fL RDW Coeff of Fausto 16.9 H (11.5-14.5) % Plt Count 243 (130-400) K/uL MPV 9.2 (7.4-10.4) fL Immature Gran % (Auto) 0.4 % Neut % (Auto) 60.8 % Lymph % (Auto) 33.1 % Kingman % (Auto) 5.3 % Eos % (Auto) 0.0 % Baso % (Auto) 0.4 % Immature Gran # (Auto) 0.02 (0.00-0.02) K/uL Neut # (Auto) 3.35 (1.4-6.5) K/uL Lymph # (Auto) 1.82 (1.2-3.4) K/uL Kingman # (Auto) 0.29 (0.11-0.59) K/uL Eos # (Auto) 0.00 (0-0.5) K/uL Baso # (Auto) 0.02 (0-0.2) K/uL Sodium 135 L (136-145) mmol/L Potassium 2.4 L* (3.5-5.1) mmol/L Chloride 93 L (98-107) mmol/L Carbon Dioxide 36 H (21-32) mmol/L Anion Gap 6.0 (3-11) BUN 20 H (7-18) mg/dl Creatinine 1.22 (0.6-1.4) mg/dl Est Cr Clr Drug Dosing 80.8 ml/min Est GFR ( Amer) 85.4 Est GFR (Non-Af Amer) 73.7 BUN/Creatinine Ratio 16.2 (10-20) Glucose 85 (70-99) mg/dl Calcium 7.7 L (8.5-10.1) mg/dl Magnesium (1.8-2.4) mg/dl Total Bilirubin 0.4 (0.2-1) mg/dl AST 152 H (15-37) U/L ALT 46 (12-78) U/L Alkaline Phosphatase 75 (45-117) U/L Total Protein 8.1 (6.4-8.2) gm/dl Albumin 3.1 L (3.4-5.0) gm/dl Globulin 5.0 H (2.5-4.0) gm/dl Albumin/Globulin Ratio 0.6 L (0.9-2) TSH 0.636 (0.300-4.500) uIu/ml Salicylates 7.7 (2.8-20) mg/dl Acetaminophen < 2 L (10-30) ug/ml Ethyl Alcohol mg/dL (0-3) mg/dl 06/22/19 06/22/19 Range/Units 13:04 13:04 WBC (4.8-10.8) K/uL RBC (4.7-6.1) M/uL Hgb (14.0-18.0) g/dL Hct (42-52) % MCV (80-100) fL MCH (25-34) pg MCHC (32-36) g/dL RDW Std Deviation (36.4-46.3) fL RDW Coeff of Fausto (11.5-14.5) % Plt Count (130-400) K/uL MPV (7.4-10.4) fL Immature Gran % (Auto) % Neut % (Auto) % Lymph % (Auto) % Kingman % (Auto) % Eos % (Auto) % Baso % (Auto) % Immature Gran # (Auto) (0.00-0.02) K/uL Neut # (Auto) (1.4-6.5) K/uL Lymph # (Auto) (1.2-3.4) K/uL Kingman # (Auto) (0.11-0.59) K/uL Eos # (Auto) (0-0.5) K/uL Baso # (Auto) (0-0.2) K/uL Sodium (136-145) mmol/L Potassium (3.5-5.1) mmol/L Chloride (98-107) mmol/L Carbon Dioxide (21-32) mmol/L Anion Gap (3-11) BUN (7-18) mg/dl Creatinine (0.6-1.4) mg/dl Est Cr Clr Drug Dosing ml/min Est GFR ( Amer) Est GFR (Non-Af Amer) BUN/Creatinine Ratio (10-20) Glucose (70-99) mg/dl Calcium (8.5-10.1) mg/dl Magnesium 2.0 (1.8-2.4) mg/dl Total Bilirubin (0.2-1) mg/dl AST (15-37) U/L ALT (12-78) U/L Alkaline Phosphatase (45-117) U/L Total Protein (6.4-8.2) gm/dl Albumin (3.4-5.0) gm/dl Globulin (2.5-4.0) gm/dl Albumin/Globulin Ratio (0.9-2) TSH (0.300-4.500) uIu/ml Salicylates (2.8-20) mg/dl Acetaminophen (10-30) ug/ml Ethyl Alcohol mg/dL < 3.0 (0-3) mg/dl ECG Data Attestation: I personally reviewed and interpreted this ECG as follows: Indication: + altered mental status Rate (beats per minute): 74 Rhythm: + normal sinus ECG Intervals/blocks: + Prolonged QT ECG ST segments: no ST depression and no ST elevation Comparison ECG Date: from (03/12/19) Change: no significant change Blood Pressure Blood Pressure Findings: Low blood pressure Blood Pressure Disposition: further management by hospitalist RKYSTEN Narrative Patient is a 39-year-old gentleman presenting today via ambulance with report of mental health issues and has an underlying history of schizophrenia with recurrent gluteal abscess. Yeast Cake Cutter is present and 302 positioning statement is present with the patient. Evidently he is very consistent with medications and by reports has not been taking care of her self or showering. Reports that at the [place] [facility] where he is at he has had increasing agitation. Cooperative here. Evidence of bilateral gluteal and perianal cellulitis and abscesses. Appears uncapped. Laboratory studies and imaging were completed to evaluate extension. Patient states he is no longer on antibiotics although there is question as to whether he should be. Bleed from medical suspected further IV antibiotics for improvement of his gluteal infection would be beneficial. Patient is refused surgical invention multiple times in the fast. Believe that further psychiatric evaluation would be beneficial for this patient to given his poor ability to care for himself exacerbating these recurrent skin and gluteal issues. Given a dose of Zosyn which prior records shows he is tolerated before. Hypokalemia is noted without hypomagnesemia in his laboratory studies. May be related to some decreased intake. Replacement orally and intravenously was ordered. Has some mild QT prolongation similar to previous. Patient was agreeable for medical admission. Had some transient mild hypotension that improved after fluid bolus here. Lactate and blood cultures ordered. Lower suspicion this is sepsis may just be some dehydration. 302 to follow patient pe nding medical stablility and discussed with the hospital recommendation for psychiatric consultation. Impression & Plan Hypokalemia, Abscess, gluteal, Cellulitis, gluteal Discharge Plan Visit Data Chief Complaint: Mental Health Evaluation ED Provider: Galo Rivera Discharge Problem: Hypokalemia, Abscess, gluteal, Cellulitis, gluteal Discharge Instructions Interventions: ED Discharge Assessment Last Done: 06/22/19 17:40 The scribe's documentation has been prepared under my direction and personally reviewed by me in its entirety. I confirm that the note above accurately reflects all work, treatment, procedures, and medical decision making performed by me.
[2019-06-22] MEDS: NSS + 20MEQ KCL 20 MEQ/1,000 ML BAG IV SCH (20:58)
[2019-06-22] MEDS: AMPICILLIN/SULBACTAM SOD 3,000 MG in 0.9 % SODIUM CHLORIDE 100 ML IV SCH (20:59)
[2019-06-22] MEDS: QUETIAPINE FUMARATE 200 MG TAB PO SCH (21:17)
[2019-06-22] MEDS: ESCITALOPRAM OXALATE 10 MG TAB PO SCH (22:00)
[2019-06-23] MEDS: AMPICILLIN/SULBACTAM SOD 3,000 MG in 0.9 % SODIUM CHLORIDE 100 ML IV SCH ×4 (01:20→21:06)
[2019-06-23] MEDS: NSS + 20MEQ KCL 20 MEQ/1,000 ML BAG IV SCH ×2 (06:27→16:00)
[2019-06-23 06:48] LABS: Hematocrit (blood only) 25.9 % (42-52); Hemoglobin 8.5 g/dL (14.0-18.0); Mean Corpuscular Hgb Conc 32.8 g/dL (32-36); Mean Corpuscular Volume 88.4 fL (80-100); Mean Platelet Volume 9.2 fL (7.4-10.4); Platelet Count 208 K/uL (130-400); RDW Coefficient of Variation 17.1 % (11.5-14.5); RDW Standard Deviation 55.4 fL (36.4-46.3); Red Blood Count 2.93 M/uL (4.7-6.1)
[2019-06-23 07:24] LABS: BUN Creatinine Ratio 14.9 (10-20); Calcium 7.6 mg/dl (8.5-10.1); Creatinine Clr Calc Pharmacy 105.6 ml/min; Est GFR (African American) 117.1
[2019-06-23 07:31] LABS: Appearance Urine Clear (Clear); Bacteria Urine Automated Negative (Negative); Bilirubin Urine Negative (Negative); Blood Urine Negative (Negative); Cast Urine Automated 0 /lpf (0-5); Color Urine Yellow; Epithelial Cell Urine Auto 20-30 /lpf (0-5); Glucose Urine UA Negative (Negative); Ketones Urine Negative (Negative); Leukocyte Esterase Urine Negative (Negative); Nitrite Urine Negative (Negative); Protein Urine 1+ (Negative); RBC Urine Automated 0-4 /hpf (0-4); Urobilinogen Urine Negative (Negative); pH Urine 6.5 (4.5-7.5)
[2019-06-23 07:46] LABS: Amphetamines+Metham, Urine Neg (Neg); Barbiturates, Urine Neg (Neg); Benzodiazepine, Urine Neg (Neg); Cocaine, Urine Neg (Neg); MDMA (Ecstacy), Urine Neg (Neg); Methadone, Urine Neg (Neg); Opiate, Urine Neg (Neg); Phencyclidine, Urine Neg (Neg)
[2019-06-23] MEDS ORDERED: POTASSIUM CHLORIDE 20 MEQ TABCR PO STA (09:41)
[2019-06-23] MEDS: POTASSIUM CHLORIDE / WTR 10 MEQ/100 ML PLCT IV SCH ×2 (10:07→12:57)
--- NOTE | 2019-06-23 14:31 | Psychiatric Consultation ---
Date of Consultation June 23, 2019 Impression / Recommendations Impression 39 yo male with a history of schizophrenia, presents mainly as disorganized type in my 2 interactions with him, worsening in context of poor med compliance at alf. He currently has delayed and incomplete response and I do not feel he has capacity to refuse medical care at this time. Reviewed with him that I feel he would be best served by an injectable antipsychotic medication. He said he would consider, will attempt to obtain additional records but Invega sustenna likely best option. Risk Factors Assessment Do You Have Access To A Gun?: No Psych History Identifying Data 39 yo male with a remot history of schizophrenia, seen previous by our service for inability to care for self. Currently receiving care on medical floor on 302 warrant by [facility] staff for same. Chief Complaint "not sure I know what you mean" delayed response History of Present Illness last seen on consult service 03/14. Per alf staff he has only taken meds <50% of days in past month. He then seems more disorganized and/or depressed with poor po, increase preoccupation with his abscess and won't stop picking/smearing, and either withdrawn or "in the face" of other residents saying things that don't make sense or border on threatening. They have previous tried referrals to SNF but no facility identified at this time. He has been non- compliant with his antibiotics and exhibiting poor self-care like refusing to shower. He is sleeping 4-5 hours per night. Past Psychiatric History Current Psychiatric Diagnosis: schizophrenia Outpatient Services: psychiatrist Benita Bauman?, Barbara field nurse case manager Previous Psych Admissions: 2019 Do You Have Access To A Gun?: No History of Previous Suicide Attempt: No Past Medication Trials: unsure Allergies Allergy/AdvReac Type Severity Reaction Status Date / Time Penicillins AdvReac Unknown unknown Unverified 04/04/19 10:22 Home Medications Home Medications Medication Instructions Recorded Confirmed Type escitalopram oxalate 10 mg tablet 10 mg PO HS tab 01/17/18 06/22/19 History quetiapine 200 mg PO HS 01/20/19 06/22/19 History Family History denied Substance Abuse History denies Personal History Living Arrangements: [facility] Highest Grade Completed: G.E.D. 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 Number Of Children: none Beliefs That Will Affect Care: None History of Legal Problems: none Psychological Trauma History Comment: denied Patient History Medical History Depression (Chronic) Paranoid schizophrenia (Chronic) Paranoid schizophrenia Perianal abscess (Acute) Perirectal abscess (Acute) Tobacco use disorder (Chronic) Surgical History History of incision and drainage Family History Other Cancer Social History (Updated 06/22/19 @ 18:07 by Madison Rooney PA-C) Preferred Language: Iranian Communication Ability: Effective Human Intelligence Required: No Beliefs That Will Affect Care: None marital status: single Current Living Situation: Boarding Home Current Living Situation Comment: roommates, lives in alf current occupational status: disabled Other Information That Helps Us Care for You: No Feels Safe at Home: Yes Safety Concerns: Feels Safe At This Time Smoking Status: Heavy tobacco smoker Tobacco Type: cigarettes ; packs per day: 0.5 ; Do You Dip or Chew Tobacco: No ; Second Hand Exposure: No ; Tobacco Cessation Education Requested by Patient: No Hx Alcohol Use: No Hx Substance Use: No during the past year weight has: remained stable Physical Exam Psychiatric: Orientation: alert and oriented to person Apperance: + disheveled Eye Contact: + poor eye contact Motor Behavior: no abnormal motor movements psychomotor retardation non spontaneous, delay of response Affect: + depressed affect Thought Process: + thought blocking, + perseveration and + concrete thought process Thought Content: no delusions Suicidal Thoughts: + reports suicidal thoughts Homicidal Thoughts: + reports homicidal thoughts Hallucinations: no auditory hallucinations and no visual hallucinations Cognition: + attention not intact Insight: + poor insight Judgement: + poor judgement Vital Signs (Past 24 Hours): Last Vital Signs Temp 36.4 C L 06/23/19 12:00 Pulse 71 06/23/19 12:00 Resp 18 06/23/19 12:00 BP 96/61 L 06/23/19 12:00 Pulse Ox 96 06/23/19 12:00 Review of Systems All systems reviewed & are unremarkable except as noted in HPI & below Results & Data (PSY) Medications Administered Escitalopram Oxalate (Lexapro Tab) 10 mg PO HS CORNELIUS Stop: 07/22/19 21:34 Last Admin: 06/22/19 22:00 Dose: 10 mg Documented by: [id number] Potassium Chloride/Sodium Chloride (Normal Saline W/20 Meq Kcl) 20 meq in 1,000 mls @ 125 mls/hr IV .Q8H CORNELIUS Stop: 06/23/19 19:14 Last Admin: 06/23/19 06:27 Dose: 125 mls/hr Documented by: [id number] Infusion: 06/23/19 04:58 Dose: 125 mls/hr Documented by: [id number] Admin: 06/22/19 20:58 Dose: 125 mls/hr Documented by: [id number] Ampicillin Sodium/Sulbactam Sodium 3,000 mg/ Sodium Chloride 108 mls @ 216 mls/hr IV Q6H CORNELIUS Stop: 07/02/19 19:59 Last Admin: 06/23/19 13:00 Dose: 216 mls/hr Documented by: [id number] Infusion: 06/23/19 09:15 Dose: 0 mls/hr Documented by: [id number] Admin: 06/23/19 08:19 Dose: 216 mls/hr Documented by: [id number] Infusion: 06/23/19 01:50 Dose: 0 mls/hr Documented by: [id number] Admin: 06/23/19 01:20 Dose: 216 mls/hr Documented by: [id number] Infusion: 06/22/19 21:29 Dose: 0 mls/hr Documented by: [id number] Admin: 06/22/19 20:59 Dose: 216 mls/hr Documented by: [id number] Quetiapine Fumarate (Seroquel) 200 mg PO HS CORNELIUS Stop: 07/22/19 20:59 Last Admin: 06/22/19 21:17 Dose: 200 mg Documented by: [id number] Coding Level of Care Code 34881 U Intl Hosp Care Lvl 2
--- NOTE | 2019-06-23 15:35 | Surgery Consultation ---
Date of Consultation June 23, 2019 Assessment & Plan (1) Abscess, gluteal: Currently, he has multiple small (under 1 cm collections) and 1 larger 2 cm collection on right which is already draining well through a skin opening. I do not think there is significant benefit to proceeding with further surgical incision and drainage. Discussed continuing with wound care and antibiotics. If fails to improve, we can re-examine whether surgery is needed. Present on Admission?: Yes (2) Cellulitis, gluteal: (3) Paranoid schizophrenia: History of Present Illness Reason for Consultation: Dr. Witt Requesting Physician: Dr. Eduar MD Attending Physician: Vandana Witt MD History of Present Illness 39 yr old man with paranoid schizophrenia and history of multiple perirectal/ gluteal abscesses. Has had multiple rounds of incision and drainage, notes constant drainage of some fluid/ pus. Has been treated with multiple rounds of antibiotics and was last given antibiotics in Mar/ Apr but did not reportedly take it. He does not do any wound care for the area and recently, was not engaging in routine hygiene (refusing to shower). Admitted due to inability to care for himself at the long-term. CT scan reviewed - shows multiple small abscesses within both gluteal folds, largest 2 cm in size. Allergies Allergy/AdvReac Type Severity Reaction Status Date / Time Penicillins AdvReac Unknown unknown Unverified 04/04/19 10:22 Home Medications Home Medications Medication Instructions Recorded Confirmed Type escitalopram oxalate 10 mg tablet 10 mg PO HS tab 01/17/18 06/22/19 History quetiapine 200 mg PO HS 01/20/19 06/22/19 History Patient History Medical History Depression (Chronic) Paranoid schizophrenia (Chronic) Paranoid schizophrenia Perianal abscess (Acute) Perirectal abscess (Acute) Tobacco use disorder (Chronic) Surgical History History of incision and drainage Family History Other Cancer Social History Preferred Language: Telugu Communication Ability: Effective Chemical Sprayer Required: No Beliefs That Will Affect Care: None marital status: single Current Living Situation: Boarding Home Current Living Situation Comment: roommates, lives in long-term current occupational status: disabled Other Information That Helps Us Care for You: No Feels Safe at Home: Yes Safety Concerns: Feels Safe At This Time Smoking Status: Heavy tobacco smoker Tobacco Type: cigarettes ; packs per day: 0.5 ; Do You Dip or Chew Tobacco: No ; Second Hand Exposure: No ; Tobacco Cessation Education Requested by Patient: No Hx Alcohol Use: No Hx Substance Use: No during the past year weight has: remained stable Review of Systems Review of Systems: Unobtainable due to mental health condition Physical Exam Constitutional: WD/WN, vitals as above Skin: examined while laying on side. Bilateral gluteal folds with induration and multiple small draining pockets. Right side (where 2 cm abscess seen on imaging) has a near 2 cm skin opening through which pus is draining. No large abscesses or discrete fluid collections. Neurologic: moves all extremities; no focal motor deficits Results & Data Vital Signs (Past 12 Hours) Vital Signs Temp Pulse Resp BP Pulse Ox 06/23/19 12:00 36.4 C L 71 18 96/61 L 96 Laboratory Results 06/23/19 06/23/19 06/23/19 Range/Units 06:45 06:45 06:23 WBC (4.8-10.8) K/uL RBC (4.7-6.1) M/uL Hgb (14.0-18.0) g/dL Hct (42-52) % MCV (80-100) fL MCH (25-34) pg MCHC (32-36) g/dL RDW Std Deviation (36.4-46.3) fL RDW Coeff of Fausto (11.5-14.5) % Plt Count (130-400) K/uL MPV (7.4-10.4) fL Sodium 142 D (136-145) mmol/L Potassium 3.0 L D (3.5-5.1) mmol/L Chloride 104 (98-107) mmol/L Carbon Dioxide 34 H (21-32) mmol/L Anion Gap 4.0 (3-11) BUN 14 (7-18) mg/dl Creatinine 0.94 (0.6-1.4) mg/dl Est Cr Clr Drug Dosing 105.6 ml/min Est GFR ( Amer) 117.1 Est GFR (Non-Af Amer) 101.0 BUN/Creatinine Ratio 14.9 (10-20) Glucose 74 (70-99) mg/dl Lactate (0.4-2.0) mmol/L Calcium 7.6 L (8.5-10.1) mg/dl Urine Color Yellow Urine Appearance Clear (Clear) Urine pH 6.5 (4.5-7.5) Ur Specific [place] 1.030 (1.000-1.030) Urine Protein 1+ H (Negative) Urine Glucose (UA) Negative (Negative) Urine Ketones Negative (Negative) Urine Blood Negative (Negative) Urine Nitrite Negative (Negative) Urine Bilirubin Negative (Negative) Urine Urobilinogen Negative (Negative) Ur Leukocyte Esterase Negative (Negative) Urine WBC (Auto) 1-5 (0-5) /hpf Urine RBC (Auto) 0-4 (0-4) /hpf U Hyaline Cast (Auto) 0 (0-5) /lpf U Epithel Cells (Auto) 20-30 H (0-5) /lpf Urine Bacteria (Auto) Negative (Negative) Urine Opiates Screen Neg (Neg) Ur Methadone, Qual Neg (Neg) Urine Barbiturates Neg (Neg) Ur Phencyclidine (PCP) Neg (Neg) U Amphetamin/Meth Scrn Neg (Neg) MDMA (Ecstasy) Screen Neg (Neg) U Benzodiazepines Scrn Neg (Neg) Ur Cocaine Metabolite Neg (Neg) U Marijuana (THC) Screen Neg (Neg) 06/23/19 06/22/19 Range/Units 06:23 17:57 WBC 5.50 (4.8-10.8) K/uL RBC 2.93 L (4.7-6.1) M/uL Hgb 8.5 L (14.0-18.0) g/dL Hct 25.9 L (42-52) % MCV 88.4 (80-100) fL MCH 29.0 (25-34) pg MCHC 32.8 (32-36) g/dL RDW Std Deviation 55.4 H (36.4-46.3) fL RDW Coeff of Fausto 17.1 H (11.5-14.5) % Plt Count 208 (130-400) K/uL MPV 9.2 (7.4-10.4) fL Sodium (136-145) mmol/L Potassium (3.5-5.1) mmol/L Chloride (98-107) mmol/L Carbon Dioxide (21-32) mmol/L Anion Gap (3-11) BUN (7-18) mg/dl Creatinine (0.6-1.4) mg/dl Est Cr Clr Drug Dosing ml/min Est GFR ( Amer) Est GFR (Non-Af Amer) BUN/Creatinine Ratio (10-20) Glucose (70-99) mg/dl Lactate 0.8 (0.4-2.0) mmol/L Calcium (8.5-10.1) mg/dl Urine Color Urine Appearance (Clear) Urine pH (4.5-7.5) Ur Specific [place] (1.000-1.030) Urine Protein (Negative) Urine Glucose (UA) (Negative) Urine Ketones (Negative) Urine Blood (Negative) Urine Nitrite (Negative) Urine Bilirubin (Negative) Urine Urobilinogen (Negative) Ur Leukocyte Esterase (Negative) Urine WBC (Auto) (0-5) /hpf Urine RBC (Auto) (0-4) /hpf U Hyaline Cast (Auto) (0-5) /lpf U Epithel Cells (Auto) (0-5) /lpf Urine Bacteria (Auto) (Negative) Urine Opiates Screen (Neg) Ur Methadone, Qual (Neg) Urine Barbiturates (Neg) Ur Phencyclidine (PCP) (Neg) U Amphetamin/Meth Scrn (Neg) MDMA (Ecstasy) Screen (Neg) U Benzodiazepines Scrn (Neg) Ur Cocaine Metabolite (Neg) U Marijuana (THC) Screen (Neg) Diagnostic Findings FINDINGS: Prominent bilateral inguinal lymph nodes are unchanged. No fracture is noted. There is no CT evidence for osteomyelitis within the pelvis or hips. Extensive subcutaneous induration and skin thickening with associated infiltration is again noted within the bilateral and inferior gluteal soft tissues. This extends into the left ischioanal fossa. No definite perianal/ perirectal fistula. Overall, findings have increased when compared to CT of March 12, 2019. Similar findings have been shown on multiple previous studies. Multiple small rim-enhancing fluid collections within the within the bilateral gluteal and inferior gluteal soft tissues are noted. The largest is a 2 cm collection within the right inferior medial gluteal fold. Left gluteal phlegmon is noted. IMPRESSION: Extensive soft tissue induration/inflammation with skin thickening involving the bilateral gluteal and inferior gluteal soft tissues extends into the left ischioanal fossa. This has progressed when compared to CT of March 12, 2019. Multiple small associated abscesses, measuring up to 2 cm, and phlegmon.
--- NOTE | 2019-06-23 15:45 | Hospitalist Progress Note ---
Date of Service June 23, 2019 Assessment & Plan (1) Abscess, gluteal: (2) Cellulitis, gluteal: This is a 39yo M with a PMH of paranoid schizophrenia, depression, hidradenitis suppurativa, chronic perirectal abscess, tobacco use disorder and anemia who presents after 302 was completed due to patient being unable to care for himself in assisted setting. Multiple hospital admission for gluteal and saloni-rectal abscesses with chronic buttock pain. Non compliant with abx therapy Very poor hygiene Continue IV abx with Unasyn Blood cx and wound cx pending Surgery on board and do not think there is significant benefit to proceeding with further surgical incision and drainage since there are significant drainage Continue daily wound care (3) Hypokalemia: Possible related to poor oral intake Continue IVF with KCL Replaced with additional potassium supplement Continue monitor BMP (4) Paranoid schizophrenia: On Seroquel 200mg HS Psych on board and does not feels that he has the capacity to refuse medical care at this time. To increase compliance psych team plan to start on Invega sustenna Continue monitor closely (5) Depression: Continue Lexapro (6) Anemia: Multifactorial with history of thalassemia and chronic infection -Hgb 9.8 on admission Hgb dropped to 8.5 today Continue Monitor (7) Tobacco use disorder: Counseling on smoking cessation DVT Ppx: SCDs Code status: FULL PCP: Tanja Dispo: Continue monitor irma Subjective Pt was seen and examined Lying in bed with no distress Pt said that he feels ok He said that he does not think his wound gets worst In the past he refused surgical procedure for incision and drainage Denies any chest pain, palpitation, dizziness and SOB Physical Exam Physical Exam: General- No acute distress Head- atraumatic Eyes- PERRL, EOMI, ENT- oropharynx clear Neck- supple, no JVD Lungs- clear to auscultation Heart- regular rhythm; no murmur Abdomen- normal bowel sounds, soft, nontender Extremities- no calf tenderness Neuro- alert, oriented x 3; PERRL, EOMI; no facial palsy; no dysarthria - +sinus tract, buttock induration, + drainage (Underwear soaked ) Skin- warm & dry Results & Data ([facility] [place]) Vital Signs (Past 12 Hours) Vital Signs Temp Pulse Resp BP Pulse Ox 06/23/19 12:00 36.4 C L 71 18 96/61 L 96 (1) Anemia Anemia type: unspecified type Qualified Code(s): D64.9 - Anemia, unspecified
[2019-06-23] MEDS: ESCITALOPRAM OXALATE 10 MG TAB PO SCH (21:02)
[2019-06-23] MEDS: QUETIAPINE FUMARATE 200 MG TAB PO SCH (21:02)
[2019-06-24] MEDS: AMPICILLIN/SULBACTAM SOD 3,000 MG in 0.9 % SODIUM CHLORIDE 100 ML IV SCH ×4 (02:02→20:27)
[2019-06-24 06:39] LABS: Hematocrit (blood only) 25.2 % (42-52); Hemoglobin 8.3 g/dL (14.0-18.0); Mean Corpuscular Hemoglobin 28.9 pg (25-34); Mean Corpuscular Hgb Conc 32.9 g/dL (32-36); Mean Corpuscular Volume 87.8 fL (80-100); Mean Platelet Volume 8.9 fL (7.4-10.4); Nucleated RBC # (auto) 0.04 K/uL (0-0); Nucleated RBC % (auto) 0.8 %; Platelet Count 239 K/uL (130-400); RDW Coefficient of Variation 17.4 % (11.5-14.5); RDW Standard Deviation 55.8 fL (36.4-46.3); Red Blood Count 2.87 M/uL (4.7-6.1); White Blood Count 5.27 K/uL (4.8-10.8)
[2019-06-24 07:14] LABS: BUN Creatinine Ratio 11.4 (10-20); Calcium 7.6 mg/dl (8.5-10.1); Creatinine Clr Calc Pharmacy 135.2 ml/min; Est GFR (Non-African American) 114.7; Potassium 3.2 mmol/L (3.5-5.1)
--- NOTE | 2019-06-24 11:22 | Hospitalist Progress Note ---
Date of Service June 24, 2019 Assessment & Plan (1) Abscess, gluteal: (2) Cellulitis, gluteal: This is a 39yo M with a PMH of paranoid schizophrenia, depression, hidradenitis suppurativa, chronic perirectal abscess, tobacco use disorder and anemia who presents after 302 was completed due to patient being unable to care for himself in snf setting. Multiple hospital admission for gluteal and saloni-rectal abscesses with chronic buttock pain. Non compliant with abx therapy Very poor hygiene Continue IV abx with Unasyn Blood cx no growth so far and wound cx grew pin point Surgery on board and do not think there is significant benefit to proceeding with further surgical incision and drainage since there are significant drainage Continue daily wound care (3) Hypokalemia: Possible related to poor oral intake K 3.2 today Replaced with additional potassium supplement Continue monitor BMP (4) Paranoid schizophrenia: On Seroquel 200mg HS Psych on board and does not feels that he has the capacity to refuse medical care at this time. To increase compliance psych team plan to start on Invega sustenna Continue monitor closely (5) Depression: Continue Lexapro (6) Anemia: Multifactorial with history of thalassemia and chronic infection -Hgb 9.8 on admission Hgb dropped to 8.3 today Continue Monitor (7) Tobacco use disorder: Counseling on smoking cessation DVT Ppx: SCDs Code status: FULL PCP: Tanja Dispo: Continue monitor irma Subjective Pt was seen and examined Lying in bed with no distress Pt said that he feels fine denies any new complaints Physical Exam Physical Exam: General- No acute distress Head- atraumatic Eyes- PERRL, EOMI, ENT- oropharynx clear Neck- supple, no JVD Lungs- clear to auscultation Heart- regular rhythm; no murmur Abdomen- normal bowel sounds, soft, nontender Extremities- no calf tenderness Neuro- alert, oriented x 3; PERRL, EOMI; no facial palsy; no dysarthria - +sinus tract, buttock induration, + drainage (Underwear soaked ) Skin- warm & dry Results & Data ([facility]) Vital Signs (Past 12 Hours) Vital Signs Temp Pulse Resp BP Pulse Ox 06/24/19 06:53 36.4 C L 75 16 101/61 97 02/02/20 04:02 36.4 C L 61 16 104/62 92 (1) Anemia Anemia type: unspecified type Qualified Code(s): D64.9 - Anemia, unspecified
[2019-06-24] MEDS ORDERED: POTASSIUM CHLORIDE 20 MEQ TABCR PO STA (11:24)
--- NOTE | 2019-06-24 11:33 | Surgery Progress Note ---
Date of Service June 24, 2019 Assessment & Plan (1) Abscess, gluteal: Appears to be improving on antibiotics. No worsening abscess developing. Would continue wound care. Will sign off - please call if situation worsens or changes. Thank you. Subjective Feels slightly better. Nurses report that he pulls his dressings off. Physical Exam Skin: gluteal folds with multiple small draining sites - overall less drainage on the right side, continued drainage from the left side. No discrete palpable abscess but induration is present bilaterally. Results & Data Vital Signs (Past 12 Hours) Vital Signs Temp Pulse Resp BP Pulse Ox 06/24/19 06:53 36.4 C L 75 16 101/61 97 06/24/19 04:02 36.4 C L 61 16 104/62 92
[2019-06-24] MEDS: QUETIAPINE FUMARATE 200 MG TAB PO SCH (20:27)
[2019-06-24] MEDS: ESCITALOPRAM OXALATE 10 MG TAB PO SCH (20:27)
[2019-06-25] MEDS: AMPICILLIN/SULBACTAM SOD 3,000 MG in 0.9 % SODIUM CHLORIDE 100 ML IV SCH ×4 (01:21→20:32)
[2019-06-25 08:19] LABS: Hematocrit (blood only) 24.7 % (42-52); Hemoglobin 8.1 g/dL (14.0-18.0); Mean Corpuscular Hemoglobin 28.7 pg (25-34); Mean Corpuscular Hgb Conc 32.8 g/dL (32-36); Mean Corpuscular Volume 87.6 fL (80-100); Mean Platelet Volume 9.2 fL (7.4-10.4); Platelet Count 302 K/uL (130-400); RDW Coefficient of Variation 17.4 % (11.5-14.5); RDW Standard Deviation 55.9 fL (36.4-46.3); Red Blood Count 2.82 M/uL (4.7-6.1); White Blood Count 5.76 K/uL (4.8-10.8)
[2019-06-25 08:44] LABS: Calcium 7.7 mg/dl (8.5-10.1); Est GFR (African American) 133.7; Est GFR (Non-African American) 115.4
--- NOTE | 2019-06-25 15:16 | Hospitalist Progress Note ---
Date of Service June 25, 2019 Assessment & Plan (1) Abscess, gluteal: (2) Cellulitis, gluteal: This is a 39yo M with a PMH of paranoid schizophrenia, depression, hidradenitis suppurativa, chronic perirectal abscess, tobacco use disorder and anemia who presents after 302 was completed due to patient being unable to care for himself in custodial setting. Multiple hospital admission for gluteal and saloni-rectal abscesses with chronic buttock pain. Non compliant with abx therapy Very poor hygiene Continue IV abx with Unasyn Blood cx no growth so far and wound cx grew pin point Surgery on board and do not think there is significant benefit to proceeding with further surgical incision and drainage since there are significant drainage Continue daily wound care (3) Hypokalemia: Possible related to poor oral intake K 3 today Replaced with additional potassium supplement Continue monitor BMP (4) Paranoid schizophrenia: On Seroquel 200mg HS Psych on board and does not feels that he has the capacity to refuse medical care at this time. To increase compliance psych team plan to start on Invega sustenna Continue monitor closely (5) Depression: Continue Lexapro (6) Anemia: Multifactorial with history of thalassemia and chronic infection -Hgb 9.8 on admission Hgb dropped to 8.1 today Continue Monitor (7) Tobacco use disorder: Counseling on smoking cessation DVT Ppx: SCDs Code status: FULL PCP: Tanja Dispo: Will need placeement Subjective Pt was seen and examined Lying in bed with no distress Case management said that pt will not be able to go back to the custodial longterm said that they cannot provide care for him and pt will need to go to a SNF Pt denies any chest pain, palpitation, dizziness and SOB Physical Exam Physical Exam: General- No acute distress Head- atraumatic Eyes- PERRL, EOMI, ENT- oropharynx clear Neck- supple, no JVD Lungs- clear to auscultation Heart- regular rhythm; no murmur Abdomen- normal bowel sounds, soft, nontender Extremities- no calf tenderness Neuro- alert, oriented x 3; PERRL, EOMI; no facial palsy; no dysarthria - +sinus tract, buttock induration, + drainage (Underwear soaked ) Skin- warm & dry Results & Data ([facility]) Vital Signs (Past 12 Hours) Vital Signs Temp Pulse Resp BP Pulse Ox 06/25/19 15:06 36.8 C 58 L 18 136/79 98 06/25/19 07:38 36.4 C L 58 L 16 97/57 L 96 (1) Anemia Anemia type: unspecified type Qualified Code(s): D64.9 - Anemia, unspecified
--- NOTE | 2019-06-25 15:34 | Psychiatric Progress Note ---
Date of Service June 25, 2019 Impression / Recommendations Impression 39 yo male with a history of schizophrenia, presents mainly as disorganized type in my 2 interactions with him, worsening in context of poor med compliance at [facility]. Significant improvement with cognition with med compliance and hydration/antibiotics. He remains agreeable to trial of Invega with plan for LINDSEY form, likely in addition to current meds. Risks/benefits/alternatives reviewed as well as need for monitoring. 3mg Invega today, Dr. Vieira aware of plan an injection likely 2/5. Risk Factors Assessment Do You Have Access To A Gun?: No Interval History Chief Complaint "I'd like to do that shot medicine". Review of Systems Notes without complaint of sedation, m. tightness, N/V/D Subjective Subjective Patient was seen & assessed and interval progress reviewed with liaison. has been cooperative with care. hx of Risperdal, Zyprexa, clozaril (did well, non compliant), and current meds. More alert, listening to videos/music on his lap top. Physical Exam Psychiatric Orientation: alert and oriented to person Apperance: + disheveled Eye Contact: + fair eye contact Motor Behavior: no abnormal motor movements Affect: + depressed affect Thought Process: + concrete thought process Thought Content: no delusions Suicidal Thoughts: denies suicidal thoughts Homicidal Thoughts: denies homicidal thoughts Hallucinations: no auditory hallucinations and no visual hallucinations Cognition: attention grossly intact Insight: + poor insight Judgement: + poor judgement Vital Signs (Past 24 Hours) Last Vital Signs Temp 36.8 C 06/25/19 15:06 Pulse 58 L 06/25/19 15:06 Resp 18 06/25/19 15:06 BP 136/79 06/25/19 15:06 Pulse Ox 98 06/25/19 15:06 Results & Data Laboratory Results Laboratory Results - last 24 hr 06/25/19 06/25/19 08:03 08:03 WBC 5.76 RBC 2.82 L Hgb 8.1 L Hct 24.7 L MCV 87.6 MCH 28.7 MCHC 32.8 RDW Std Deviation 55.9 H RDW Coeff of Fausto 17.4 H Plt Count 302 MPV 9.2 Sodium 144 Potassium 3.0 L Chloride 110 H Carbon Dioxide 30 Anion Gap 5.0 BUN 5 L Creatinine 0.74 Est Cr Clr Drug Dosing 137.0 Est GFR ( Amer) 133.7 Est GFR (Non-Af Amer) 115.4 BUN/Creatinine Ratio 7.0 L Glucose 81 Calcium 7.7 L Current Inpatient Medications Current Inpatient Medications: Current Inpatient Medications Escitalopram Oxalate (Lexapro Tab) 10 mg [address] [facility] Stop: 07/22/19 21:34 Last Admin: 06/24/19 20:27 Dose: 10 mg Documented by: Ampicillin Sodium/Sulbactam Sodium 3,000 mg/ Sodium Chloride 108 mls @ 216 mls/hr IV Q6H [facility] Stop: 07/02/19 19:59 Last Infusion: 06/25/19 15:26 Dose: Infused Documented by: Miscellaneous Information (Ampicillin/Sulbactam Consult) 1 ea N/A UD PRN PRN Reason: Consult Stop: 07/22/19 19:13 Paliperidone (Invega) 3 mg PO QAM [facility] Stop: 07/25/19 15:29 Quetiapine Fumarate (Seroquel) 200 mg PO [facility] Stop: 07/22/19 20:59 Last Admin: 06/24/19 20:27 Dose: 200 mg Documented by:
[2019-06-25] MEDS: PALIPERIDONE 3 MG TABCR PO SCH (16:33)
[2019-06-25] MEDS: ESCITALOPRAM OXALATE 10 MG TAB PO SCH (20:31)
[2019-06-25] MEDS: QUETIAPINE FUMARATE 200 MG TAB PO SCH (20:32)
[2019-06-26] MEDS: AMPICILLIN/SULBACTAM SOD 3,000 MG in 0.9 % SODIUM CHLORIDE 100 ML IV SCH ×5 (03:07→20:54)
[2019-06-26 07:20] LABS: Hematocrit (blood only) 25.8 % (42-52); Hemoglobin 8.4 g/dL (14.0-18.0); Mean Corpuscular Hemoglobin 28.5 pg (25-34); Mean Corpuscular Hgb Conc 32.6 g/dL (32-36); Mean Corpuscular Volume 87.5 fL (80-100); Mean Platelet Volume 9.4 fL (7.4-10.4); Platelet Count 386 K/uL (130-400); RDW Coefficient of Variation 17.3 % (11.5-14.5); Red Blood Count 2.95 M/uL (4.7-6.1); White Blood Count 7.39 K/uL (4.8-10.8)
[2019-06-26 07:47] LABS: BUN Creatinine Ratio 5.8 (10-20); Calcium 7.4 mg/dl (8.5-10.1); Creatinine Clr Calc Pharmacy 117.9 ml/min; Est GFR (African American) 125.7; Est GFR (Non-African American) 108.5; Magnesium 1.3 mg/dl (1.8-2.4); Potassium 2.9 mmol/L (3.5-5.1)
[2019-06-26] MEDS ORDERED: POTASSIUM CHLORIDE 20 MEQ TABCR PO STA (08:44)
[2019-06-26] MEDS: PALIPERIDONE 3 MG TABCR PO SCH (09:50)
[2019-06-26] MEDS: POTASSIUM CHLORIDE / WTR 10 MEQ/100 ML PLCT IV SCH ×4 (10:05→13:20)
[2019-06-26] MEDS: MAGNESIUM SULFATE / D5W 1 GM/100 ML BAG IV SCH ×3 (10:05→12:17)
--- NOTE | 2019-06-26 14:16 | Psychiatric Progress Note ---
Date of Service June 26, 2019 Impression / Recommendations Impression 06/23/2019 - 06/25/2019 - 39 yo male with a history of schizophrenia, presents mainly as disorganized type in my 2 interactions with him, worsening [facility] Significant improvement with cognition with med compliance and hydration/antibiotics. He remains agreeable to trial of Invega with plan for LINDSEY form, likely in addition to current meds. Risks/benefits/alternatives reviewed as well as need for monitoring. 3mg Invega today, Dr. Vieira aware of plan an injection likely 06/27. 06/26/2019 - Pt seen today for follow-up visit to assess willingness for initiation of Invega Sustenna. Risks, benefits, and potential side effects were reviewed with the patient who verbalized understanding. Patient was willing to allow this provider to enter orders for him to receive initiation of Invega Sustenna tomorrow morning. Orders entered for patient to receive 234mg IM dosing on 06/27/2019 - with additional order for second initiation dose of 156mg IM ordered for 07/02/2019 (can be given 4-7 days after first injection) if patient tolerates the initial injection. It is also reported that there is to be a treatment team meeting with his outpatient supports tomorrow afternoon. Will attempt to have either liaison or provider representation at this meeting in order to remains up-to-date on coordination of care. Pt denied acute needs at this time. Risk Factors Assessment Do You Have Access To A Gun?: No Interval History Identifying Information 39-year-old male admitted medically on 06/22/2019 for treatment of chronic gluteal abscess along with other medical concerns related to limited self care. Pt was brought to the ED on a 302 warrant due to inability to care for self. Initial psychiatric consultation completed on 06/23/2019, and patient has been seen routinely for follow-up visits from our service as well. Chief Complaint "I'm fine. Physically I'm feeling improved." Review of Systems Notes Constitutional: denied Cardiovascular: denied Respiratory: denied Gastrointestinal: denied Neurological: denied Psychiatric: denies symptoms other than stated above Total of at least 10 systems reviewed, pertinent positives as above and in HPI. Subjective Subjective Patient's case was reviewed and discussed during morning report with psychiatric nurse liaison and supervising psychiatrist. Patient's progress has been followed since completion of initial psychiatric consultation on 06/23/2019. Patient was initiated on oral paliperidone 3 mg, and had previously verbalized willingness to convert to monthly injections of Invega Sustenna to encourage medication compliance and overall stability of psychiatric symptoms. Patient was seen on consult service today to review willingness for this intervention and assess progress since admission. Patient states that he is feeling "fine", and admits to improvements in his physical presentation since admission. Patient denies any significant mood concerns at this time, and states he has been tolerating medication adjustments as reviewed with weekend psychiatrist. Patient denies any side effects related to initiation of paliperidone. Plan to convert to Invega Sustenna were reviewed with the patient, who was able to verbalize monzon aspects of his conversation with the psychiatrist over the weekend. Patient asks appropriate questions indicating understanding of conversion to long-acting injectable. Patient remains agreeable with this plan, and was willing to allow this provider to enter orders for him to receive the injection tomorrow morning. Patient was reminded that the initiation of this treatment is in two steps, requiring two separate injections within 4-7 days - he denied any concerns related to this. Patient denied acute psychiatric concerns at this time. Physical Exam Psychiatric Orientation: alert and cooperative Apperance: appropriately dressed (in hospital gown and paper scrub pants) and appropriately groomed Eye Contact: + poor eye contact (appears distracted by laptop screen) Motor Behavior: no abnormal motor movements (Observed while laying in bed) Speech: normal rate/rhythm/volume of speech (Nonspontaneous, brief responses to questions) Affect: + flat affect Mood: no depressed mood and no anxious mood "I am fine" Thought Process: goal directed thought process and + concrete thought process Thought Content: no delusions Suicidal Thoughts: denies suicidal thoughts Homicidal Thoughts: denies homicidal thoughts Hallucinations: no auditory hallucinations and no visual hallucinations Cognition: language grossly intact; + attention not intact (Distracted by laptop screen) Insight: + poor insight (Though appears improved overall from admission) Judgement: + poor judgement (Though appears improved overall from admission) Vital Signs (Past 24 Hours) Last Vital Signs Temp 36.8 C 06/26/19 06:42 Pulse 56 L 06/26/19 06:42 Resp 20 06/26/19 06:42 BP 135/84 06/26/19 06:42 Pulse Ox 95 06/26/19 06:42 Results & Data Laboratory Results Laboratory Results - last 24 hr 06/26/19 06/26/19 06:55 06:55 WBC 7.39 RBC 2.95 L Hgb 8.4 L Hct 25.8 L MCV 87.5 MCH 28.5 MCHC 32.6 RDW Std Deviation 55.0 H RDW Coeff of Fausto 17.3 H Plt Count 386 MPV 9.4 Sodium 145 Potassium 2.9 L Chloride 110 H Carbon Dioxide 31 Anion Gap 4.0 BUN 5 L Creatinine 0.86 Est Cr Clr Drug Dosing 117.9 Est GFR ( Amer) 125.7 Est GFR (Non-Af Amer) 108.5 BUN/Creatinine Ratio 5.8 L Glucose 80 Calcium 7.4 L Magnesium 1.3 L Current Inpatient Medications Current Inpatient Medications: Current Inpatient Medications Escitalopram Oxalate (Lexapro Tab) 10 mg PO [facility] Stop: 07/22/19 21:34 Last Admin: 06/25/19 20:31 Dose: 10 mg Documented by: Ampicillin Sodium/Sulbactam Sodium 3,000 mg/ Sodium Chloride 108 mls @ 216 mls/hr IV Q6H [facility] Stop: 07/02/19 19:59 Last Infusion: 06/26/19 10:33 Dose: Infused Documented by: Miscellaneous Information (Ampicillin/Sulbactam Consult) 1 ea N/A UD PRN PRN Reason: Consult Stop: 07/22/19 19:13 Paliperidone (Invega) 3 mg PO [facility] Stop: 07/25/19 15:59 Last Admin: 06/26/19 09:50 Dose: 3 mg Documented by: Quetiapine Fumarate (Seroquel) 200 mg PO [facility] Stop: 07/22/19 20:59 Last Admin: 06/25/19 20:32 Dose: 200 mg Documented by:
--- NOTE | 2019-06-26 19:38 | Hospitalist Progress Note ---
Date of Service June 26, 2019 Assessment & Plan (1) Abscess, gluteal: (2) Cellulitis, gluteal: This is a 39yo M with a PMH of paranoid schizophrenia, depression, hidradenitis suppurativa, chronic perirectal abscess, tobacco use disorder and anemia who presents after 302 was completed due to patient being unable to care for himself in [facility] setting. Multiple hospital admission for gluteal and saloni-rectal abscesses with chronic buttock pain. Non compliant with abx therapy Very poor hygiene Continue IV abx with Unasyn Blood cx no growth so far and wound cx grew [place] [facility] on board and do not think there is significant benefit to proceeding with further surgical incision and drainage since there are significant drainage Continue daily wound care (3) Hypokalemia: Possible related to poor oral intake K 3 today Replaced with additional potassium supplement Continue monitor BMP (4) Paranoid schizophrenia: On Seroquel 200mg HS Psych on board and does not feels that he has the capacity to refuse medical care at this time. To increase compliance psych team plan to start on Invega with first injection schedule tomorrow Continue monitor closely (5) Depression: Continue Lexapro (6) Anemia: Multifactorial with history of thalassemia and chronic infection -Hgb 9.8 on admission Hgb dropped to 8.1 today Continue Monitor (7) Tobacco use disorder: Counseling on smoking cessation DVT Ppx: SCDs Code status: FULL PCP: Tanja Dispo: Will need placeement Subjective Pt was seen and examined Lying in bed with no distress Pt said that he feels fine today They are planning to get a meeting tomorrow about where to place him Denies any chest pain, palpitation and SOB Physical Exam Physical Exam: General- No acute distress Head- atraumatic Eyes- PERRL, EOMI, ENT- oropharynx clear Neck- supple, no JVD Lungs- clear to auscultation Heart- regular rhythm; no murmur Abdomen- normal bowel sounds, soft, nontender Extremities- no calf tenderness Neuro- alert, oriented x 3; PERRL, EOMI; no facial palsy; no dysarthria - +sinus tract, buttock induration, + drainage (Underwear soaked ) Skin- warm & dry Results & Data ([facility]) Vital Signs (Past 12 Hours) Vital Signs Temp Pulse Resp BP Pulse Ox 06/26/19 14:49 36.4 C L 60 20 138/82 96 (1) Anemia Anemia type: unspecified type Qualified Code(s): D64.9 - Anemia, unspecified
[2019-06-26] MEDS: QUETIAPINE FUMARATE 200 MG TAB PO SCH (20:54)
[2019-06-26] MEDS: ESCITALOPRAM OXALATE 10 MG TAB PO SCH (20:54)
[2019-06-26 21:00] LABS: Magnesium 1.8 mg/dl (1.8-2.4); Potassium 3.4 mmol/L (3.5-5.1)
[2019-06-27] MEDS: AMPICILLIN/SULBACTAM SOD 3,000 MG in 0.9 % SODIUM CHLORIDE 100 ML IV SCH ×4 (01:38→19:41)
[2019-06-27 06:20] LABS: Hematocrit (blood only) 26.7 % (42-52); Hemoglobin 8.7 g/dL (14.0-18.0); Mean Corpuscular Hemoglobin 28.5 pg (25-34); Mean Corpuscular Hgb Conc 32.6 g/dL (32-36); Mean Corpuscular Volume 87.5 fL (80-100); Mean Platelet Volume 9.1 fL (7.4-10.4); Platelet Count 477 K/uL (130-400); RDW Coefficient of Variation 17.7 % (11.5-14.5); RDW Standard Deviation 55.8 fL (36.4-46.3); Red Blood Count 3.05 M/uL (4.7-6.1); White Blood Count 8.32 K/uL (4.8-10.8)
[2019-06-27 06:49] LABS: BUN Creatinine Ratio 4.5 (10-20); Creatinine Clr Calc Pharmacy 117.9 ml/min; Est GFR (African American) 125.7; Est GFR (Non-African American) 108.5; Magnesium 1.6 mg/dl (1.8-2.4); Potassium 3.3 mmol/L (3.5-5.1)
[2019-06-27] MEDS: PALIPERIDONE 3 MG TABCR PO SCH (08:57)
[2019-06-27] MEDS ORDERED: PALIPERIDONE PALMITATE 234 MG/1.5 ML SYR IM ONE (09:00)
--- NOTE | 2019-06-27 12:09 | Psychiatric Progress Note ---
Date of Service June 27, 2019 Impression / Recommendations Impression Complex case due to chronic health issues (gluteal abscess) and mental illness (schizophrenia) with limited treatment adherence, which has led to dismissal from multiple living situations, now unable to return to the [facility]. (1) Paranoid schizophrenia: 06/23/2019 - 06/25/2019 - 39 yo male with a history of schizophrenia, presents mainly as disorganized type in my 2 interactions with him, worsening in context of poor med compliance at residential. Significant improvement with cognition with med compliance and hydration/antibiotics. He remains agreeable to trial of Invega with plan for LINDSEY form, likely in addition to current meds. Risks/benefits/alternatives reviewed as well as need for monitoring. 3mg Invega today, Dr. Vieira aware of plan an injection likely 06/27. 06/26/2019 - Pt seen today for follow-up visit to assess willingness for initiation of Invega Sustenna. Risks, benefits, and potential side effects were reviewed with the patient who verbalized understanding. Patient was willing to allow this provider to enter orders for him to receive initiation of Invega Sustenna tomorrow morning. Orders entered for patient to receive 234mg IM dosing on 06/27/2019 - with additional order for second initiation dose of 156mg IM ordered for 07/02/2019 (can be given 4-7 days after first injection) if patient tolerates the initial injection. It is also reported that there is to be a treatment team meeting with his outpatient supports tomorrow afternoon. Will attempt to have either liaison or provider representation at this meeting in order to remains up-to-date on coordination of care. Pt denied acute needs at this time. 06/27 -Patient is denying mood and psychotic symptoms, is taking medications here, and was started on Invega Sustenna (received the first loading injection this morning). The second loading injection is ordered for 07/02/2019, and he can then receive monthly injections. -Continue home doses of quetiapine and escitalopram. Clarify outpatient follow-up (per external medication history, was seeing PHYLLIS Cisse at [facility], which is closed). -Reviewed 302 petition from [facility] staff, which states that the patient had been noncompliant with oral psychiatric medications and was not attending to his personal hygiene. On my exam today, hygiene is good, and he is going to shower at his request. I do not see any signs that his personal hygiene puts himself or others at imminent risk. The petition also indicates weight loss, and on review of hospital records, weight today is 73 kg, 1 year ago was 79 kg. BMI is 21.8, in the normal range. He is eating here, and denies problems with appetite. The petition also states Nabila behaved in a threatening manner at the [facility], and that in early May he was asked to pace in another area of the house as he was disrupting his peers. He walked up to appear and put his face close to her is and asked her if she had a problem with him. He then commented to staff that "things would be different if they were in [facility]." Later that night, he met another staff in the garage and asked who threw out his cup. He has not had any aggressive or threatening statements or behavior here. He is not demonstrating psychotic or mood symptoms, and does not meet criteria for involuntary commitment under the mental health procedures act. Based on past interactions with him, his personal hygiene has been chronically poor. Risk Factors Assessment Do You Have Access To A Gun?: No Interval History Identifying Information 39-year-old male admitted medically on 06/22/2019 for treatment of chronic gluteal abscess along with other medical concerns related to limited self care. Initial psychiatric consultation completed on 06/23/2019, and patient seen today for follow-up. Chief Complaint " Overall, feeling better". Review of Systems Notes 10 systems reviewed, all negative except as stated above. Subjective Subjective Patient was seen & assessed and interval progress reviewed with the psychiatric liaison nurse. Patient is known to me from previous consultations. He was initially seen by Dr. Bucio on 06/23/2019, who recommended a long-acting injectable antipsychotic due to his history of limited medication adherence with oral antipsychotics. He agreed to Invega Sustenna, and after tolerating oral paliperidone, received his initial Sustenna loading injections today. He has been seen by surgery, Dr. Edwards; noted multiple small <1 cm and 1 larger 2 cm gluteal abscesses, which are draining well through skin opening, and that surgery was not indicated. He is on IV antibiotics and receiving oral potassium for hypokalemia. Per nursing notes, he is eating, using the toilet, and consistently denying pain. He has declined wound care and dressing changes by nurses. Case management is involved and scheduled a meeting with [facility] ID case management, the patient's father, and possibly his Benita wrapper caser for discharge planning, which we were asked to attend. On my assessment, he was seen in his room, where he is lying in bed playing on his laptop computer. He states that physically he is feeling better, energy is improved, and denies pain. He denies problems with sleep, appetite, and mood, stating mood is "okay for the most part." He denies anhedonia, suicidal thoughts, homicidal thoughts, hallucinations, paranoia, and safety concerns. He tolerated his first Invega Sustenna loading dose well. He denies any concerns about his mental health. He reports he was showering 1-2 times a day while at the [facility], and when asked about statements in the 302 petition that he had not showered in 30 days, he is unable to explain the discrepancy. He says he has not showered since admission to the hospital, but asked the staff to assist him to the shower room today, and the BRIQUETTE MACHINE OPERATOR HELPER came into his room to do that during the assessment. He says that he has been doing his own wound care, using a washcloth and water or wipes, and shows me the supplies at the bedside for doing this. He says he has been living at the [facility] for 6 to 7 months, and hopes to return there. He says his wrapper caser told him "to they have a problem," but is unable to give further detail about any concerns that had been discussed with him, and denies that he was given a 30-day eviction notice. He denies that his outpatient team has been looking for other placements for him. He denies problems getting along with staff or other residents at the [facility]. Participated in multidisciplinary discharge planning meeting including patient's MARY Jimenez and 2 supervisors from the [facility], Benita Albright (works with his PCP), Nabila's parents, hospital case management, hospital state tested nursing assistant, Dr. Jimenez hospitalist, psych nurse liaison and myself. [facility] updated that since last meeting in 01/2019, he was discharged to go to [facility], [facility] intervened and placed him temporarily at [facility] while searching for nursing homes. They have a list of nursing homes and have been working on placement, but have had difficulties finding an accepting facility. Part of the problem has been his poor compliance with oral psych meds. Dr. Jimenez gave update on his medical condition, stated good hygiene is necessary for his abscess to heal. His mother stated he has always been resistant to taking medication for any reason. Hospital staff reported he has been compliant with all medications here and has not refused any doses. Barbara stated the [facility] "tries to promote independence" and expects patients to come and ask for their meds, which he does not always do. His parents state he takes meds without difficulty when he comes to visit them. The [facility] stated the [facility] is not an option, even if he is on a LINDSEY. Natalee shared that he does well in facilities with more structure than the [facility], and she has contacted 10 different facilities, all of whom declined him for different reasons. She spoke with Crystal Coker an intensive CM through [facility] for additional ideas, and they discussed [facility] (multiple locations, step down from inpatient , can continue for 3-6 months). The [facility] also suggested [facility], although that is where he was in the fall and was discharged. Clarified that his outpatient care will be through [facility] and he will see Dr. Mikala Mann for psychiatric care. Hospital case management reported that he does not meet criteria for penitentiary at this time. Summary of Past History At time of last [facility] admission 02/2019, he was discharged with OP care at [facility] through [facility] Physical Exam Psychiatric Orientation: alert and cooperative Apperance: appropriately dressed Well-nourished well-developed black male appearing his stated age. Reclining in bed in no acute distress, with laptop on his abdomen, wearing headphones, which he removed for the interview. He is dressed in paper scrubs and T-shirt. Hygiene is good, no odor (body odor or feces) or visible body fluids/abscess drainage on his clothes, person, or bed. Grooming is limited, with unkempt facial hair. Eye Contact: + poor eye contact Makes only very brief eye contact. Motor Behavior: no abnormal motor movements Minimal speech, slightly slowed. Affect: + blunted affect "Okay for the most part." Thought Process: goal directed thought process and + concrete thought process Answers are often vague, have to ask for clarification. Thought Content: reality based without delusions Suicidal Thoughts: denies suicidal thoughts Homicidal Thoughts: denies homicidal thoughts Hallucinations: no auditory hallucinations and no visual hallucinations Cognition: attention grossly intact and language grossly intact Insight: + limited insight Judgement: + limited judgement Vital Signs (Past 24 Hours) Last Vital Signs Temp 36.8 C 06/27/19 07:18 Pulse 54 L 06/27/19 07:18 Resp 18 06/27/19 07:18 BP 114/68 06/27/19 07:18 Pulse Ox 94 06/27/19 07:18 Results & Data Laboratory Results Laboratory Results - last 24 hr 06/26/19 06/27/19 06/27/19 20:28 06:00 06:00 WBC 8.32 RBC 3.05 L Hgb 8.7 L Hct 26.7 L MCV 87.5 MCH 28.5 MCHC 32.6 RDW Std Deviation 55.8 H RDW Coeff of Fausto 17.7 H Plt Count 477 H MPV 9.1 Sodium 142 Potassium 3.4 L D 3.3 L Chloride 110 H Carbon Dioxide 28 Anion Gap 4.0 BUN 4 L Creatinine 0.86 Est Cr Clr Drug Dosing 117.9 Est GFR ( Amer) 125.7 Est GFR (Non-Af Amer) 108.5 BUN/Creatinine Ratio 4.5 L Glucose 81 Calcium 7.0 L Magnesium 1.8 1.6 L Current Inpatient Medications Current Inpatient Medications: Current Inpatient Medications Escitalopram Oxalate (Lexapro Tab) 10 mg PO HS [facility] Stop: 07/22/19 21:34 Last Admin: 06/26/19 20:54 Dose: 10 mg Documented by: Ampicillin Sodium/Sulbactam Sodium 3,000 mg/ Sodium Chloride 108 mls @ 216 mls/hr IV Q6H [facility] Stop: 07/02/19 19:59 Last Infusion: 06/27/19 08:57 Dose: Infused Documented by: Miscellaneous Information (Ampicillin/Sulbactam Consult) 1 ea N/A UD PRN PRN Reason: Consult Stop: 07/22/19 19:13 Paliperidone (Invega) 3 mg PO QAM [facility] Stop: 07/25/19 15:59 Last Admin: 06/27/19 08:57 Dose: 3 mg Documented by: Paliperidone Palmitate (Invega Sustenna) 156 mg IM [facility] Stop: 07/02/19 09:01 Quetiapine Fumarate (Seroquel) 200 mg PO [facility] Stop: 07/22/19 20:59 Last Admin: 06/26/19 20:54 Dose: 200 mg Documented by:
[2019-06-27] MEDS ORDERED: POTASSIUM CHLORIDE 20 MEQ TABCR PO STA (14:56)
--- NOTE | 2019-06-27 18:43 | Hospitalist Progress Note ---
Date of Service June 27, 2019 Assessment & Plan (1) Abscess, gluteal: (2) Cellulitis, gluteal: This is a 39yo M with a PMH of paranoid schizophrenia, depression, hidradenitis suppurativa, chronic perirectal abscess, tobacco use disorder and anemia who presents after 302 was completed due to patient being unable to care for himself in long-term setting. Multiple hospital admission for gluteal and saloni-rectal abscesses with chronic buttock pain. Non compliant with abx therapy in the past Very poor hygiene Started on intravenous continue Unasyn Blood cx no growth so far and wound cx grew [place] Appreciate surgery input and recommendation No indication of IND at this time Clinically much better We will get wound care consult and continue current antibiotic (3) Hypokalemia: Possible related to poor oral intake K 3 today Replaced with additional potassium supplement Continue monitor BMP-K remains low and will supplement (4) Paranoid schizophrenia: On Seroquel 200mg HS Psych on board and does not feels that he has the capacity to refuse medical care at this time. To increase compliance psych team plan to start on Invega with first injection schedule tomorrow Continue monitor closely Appreciate psychiatry input and recommendation Has been getting intramuscular Invega which can be given every 4 weeks Symptomatically much better (5) Depression: Continue Lexapro (6) Anemia: Multifactorial with history of thalassemia and chronic infection -Hgb 9.8 on admission Hgb dropped to 8.1 today Continue Monitor -8.7 as of 06/27/2019 (7) Tobacco use disorder: Counseling on smoking cessation DVT Ppx: SCDs Code status: FULL PCP: Tanja Dispo: Has had a multi-disciplinary meeting today Overall is stressed was given to wound care and maintain good hygiene Fortunately he has been agreeable to IM medications for schizophrenia and that is going to be helpful for his symptoms I had a long discussion with him this afternoon for the proposed care Awaiting placement Subjective 06/27/2019 The patient was seen and examined in medical floor He denies any complaints today He has been very rational and has been listening to what ever he was asked to Review of Systems Review of Systems: All systems reviewed and are unremarkable except as noted below Neurologic: no confusion Physical Exam Physical Exam: Lying in bed comfortably Constitutional: + thin; no acute distress and not ill appearing Eyes: PERRL, conjunctivae normal, anicteric sclerae ENMT: external ear and nose normal, oropharynx normal Neck: trachea midline, no thyromegaly Respiratory: normal respiratory effort Auscultation: lungs clear to auscultation bilaterally Cardiovascular: Rate/Rhythm: regular rate and regular rhythm Heart Sounds: no murmur Gastrointestinal (Abdomen): Inspection/Auscultation: abdomen normal to inspection Percussion/Palpation: abdomen soft; abdomen nontender Exa mination of the gluteal region both sides showed extensive skin changes secondary to chronic abscesses and evidence of multiple I&D' Psychiatric: Orientation: alert and oriented x 3 Results & Data ([facility]) Vital Signs (Past 12 Hours) Vital Signs Temp Pulse Resp BP Pulse Ox 06/27/19 14:50 36.5 C 70 20 142/59 H 95 06/27/19 07:18 36.8 C 54 L 18 114/68 94 Laboratory Results Short CBC 06/27/19 Range/Units 06:00 WBC 8.32 (4.8-10.8) K/uL Hgb 8.7 L (14.0-18.0) g/dL Hct 26.7 L (42-52) % Plt Count 477 H (130-400) K/uL BMP 06/26/19 06/27/19 20:28 06:00 Sodium 142 Potassium 3.4 L D 3.3 L Chloride 110 H Carbon Dioxide 28 BUN 4 L Creatinine 0.86 Glucose 81 Calcium 7.0 L Medications Administered Current Inpatient Medications Escitalopram Oxalate (Lexapro Tab) 10 mg PO HS [facility] Stop: 07/22/19 21:34 Last Admin: 06/26/19 20:54 Dose: 10 mg Documented by: Ampicillin Sodium/Sulbactam Sodium 3,000 mg/ Sodium Chloride 108 mls @ 216 mls/hr IV Q6H [facility] Stop: 07/02/19 19:59 Last Infusion: 06/27/19 14:39 Dose: Infused Documented by: Miscellaneous Information (Ampicillin/Sulbactam Consult) 1 ea N/A UD PRN PRN Reason: Consult Stop: 07/22/19 19:13 Paliperidone Palmitate (Invega Sustenna) 156 mg IM ONE ONE Stop: 07/02/19 09:01 Quetiapine Fumarate (Seroquel) 200 mg PO HS [facility] Stop: 07/22/19 20:59 Last Admin: 06/26/19 20:54 Dose: 200 mg Documented by: (1) Anemia Anemia type: unspecified type Qualified Code(s): D64.9 - Anemia, unspecified
[2019-06-27] MEDS: QUETIAPINE FUMARATE 200 MG TAB PO SCH (20:13)
[2019-06-27] MEDS: ESCITALOPRAM OXALATE 10 MG TAB PO SCH (20:13)
[2019-06-28] MEDS: AMPICILLIN/SULBACTAM SOD 3,000 MG in 0.9 % SODIUM CHLORIDE 100 ML IV SCH ×4 (03:01→20:05)
[2019-06-28 05:44] LABS: Basophils # (auto) 0.02 K/uL (0-0.2); Basophils % (auto) 0.2 %; Eosinophils # (auto) 0.17 K/uL (0-0.5); Eosinophils % (auto) 1.9 %; Hematocrit (blood only) 25.7 % (42-52); Hemoglobin 8.6 g/dL (14.0-18.0); Immature Granulocytes # (auto) 0.14 K/uL (0.00-0.02); Immature Granulocytes % (auto) 1.5 %; Lymphocytes # (auto) 3.31 K/uL (1.2-3.4); Lymphocytes % (auto) 36.4 %; Mean Corpuscular Hgb Conc 33.5 g/dL (32-36); Mean Corpuscular Volume 86.5 fL (80-100); Mean Platelet Volume 8.8 fL (7.4-10.4); Monocytes # (auto) 0.84 K/uL (0.11-0.59); Monocytes % (auto) 9.2 %; Neutrophils # (auto) 4.61 K/uL (1.4-6.5); Neutrophils % (auto) 50.8 %; Platelet Count 581 K/uL (130-400); RDW Coefficient of Variation 17.8 % (11.5-14.5); Red Blood Count 2.97 M/uL (4.7-6.1); White Blood Count 9.09 K/uL (4.8-10.8)
[2019-06-28 06:10] LABS: BUN Creatinine Ratio 5.6 (10-20); Calcium 7.3 mg/dl (8.5-10.1); Creatinine Clr Calc Pharmacy 123.6 ml/min; Est GFR (African American) 128.2; Est GFR (Non-African American) 110.6; Magnesium 1.5 mg/dl (1.8-2.4); Phosphorus 3.2 mg/dl (2.5-4.9); Potassium 3.7 mmol/L (3.5-5.1)
--- NOTE | 2019-06-28 17:57 | Hospitalist Progress Note ---
Date of Service June 28, 2019 Assessment & Plan (1) Abscess, gluteal: (2) Cellulitis, gluteal: This is a 39yo M with a PMH of paranoid schizophrenia, depression, hidradenitis suppurativa, chronic perirectal abscess, tobacco use disorder and anemia who presents after 302 was completed due to patient being unable to care for himself in alf setting. Multiple hospital admission for gluteal and saloni-rectal abscesses with chronic buttock pain. Non compliant with abx therapy in the past Very poor hygiene Started on intravenous continue Unasyn Blood cx no growth so far and wound cx grew [place] Appreciate surgery input and recommendation No indication of IND at this time Clinically much better We will get wound care consult and continue current antibiotic We will continue current intravenous antibiotic and change to oral Augmentin on discharge Appreciate wound care input and recommendation (3) Hypokalemia: Possible related to poor oral intake K 3 today Replaced with additional potassium supplement Continue monitor BMP-K remains low and will supplement Normalized (4) Paranoid schizophrenia: On Seroquel 200mg HS Psych on board and does not feels that he has the capacity to refuse medical care at this time. To increase compliance psych team plan to start on Invega with first injection schedule tomorrow Continue monitor closely Appreciate psychiatry input and recommendation Has been getting intramuscular Invega which can be given every 4 weeks Symptomatically much better Awaiting placement (5) Depression: Continue Lexapro (6) Anemia: Multifactorial with history of thalassemia and chronic infection -Hgb 9.8 on admission Hgb dropped to 8.1 today Continue Monitor -8.7 as of 06/27/2019 (7) Tobacco use disorder: Counseling on smoking cessation DVT Ppx: SCDs Code status: FULL PCP: Tanja Dispo: Has had a multi-disciplinary meeting today Overall is stressed was given to wound care and maintain good hygiene Fortunately he has been agreeable to IM medications for schizophrenia and that is going to be helpful for his symptoms I had a long discussion with him this afternoon for the proposed care Awaiting placement Subjective 06/27/2019 The patient was seen and examined in medical floor He denies any complaints today He has been very rational and has been listening to what ever he was asked to 06/28/2019 The patient was seen and examined in medical floor He has been stable and taking the medications and trying to maintain hygiene as advised He is a schizophrenic symptoms seem to be improving Review of Systems Review of Systems: All systems reviewed and are unremarkable except as noted below Psychiatric: + anxiety; no hopelessness, no irritability, no paranoia, no auditory hallucinations, no visual hallucinations and no tactile hallucinations Physical Exam Physical Exam: Lying in bed comfortably Constitutional: + thin; no acute distress and not ill appearing Eyes: PERRL, conjunctivae normal, anicteric sclerae ENMT: external ear and nose normal, oropharynx normal Neck: trachea midline, no thyromegaly Respiratory: normal respiratory effort Auscultation: lungs clear to auscultation bilaterally Cardiovascular: Rate/Rhythm: regular rate and regular rhythm Heart Sounds: no murmur Gastrointestinal (Abdomen): Inspection/Auscultation: abdomen normal to inspection Percussion/Palpation: abdomen soft; abdomen nontender Musculoskeletal: Denies any acute arthritis involving any joint Psychiatric: Orientation: alert and oriented x 3 Results & Data ([facility]) Vital Signs (Past 12 Hours) Vital Signs Temp Pulse Resp BP BP Pulse Ox 06/28/19 15:00 36.7 C 66 16 144/89 H 95 06/28/19 07:17 36.8 C 66 16 135/76 96 Laboratory Results Short CBC 06/28/19 Range/Units 05:20 WBC 9.09 (4.8-10.8) K/uL Hgb 8.6 L (14.0-18.0) g/dL Hct 25.7 L (42-52) % Plt Count 581 H (130-400) K/uL BMP 06/28/19 05:20 Sodium 143 Potassium 3.7 Chloride 112 H Carbon Dioxide 28 BUN 5 L Creatinine 0.82 Glucose 79 Calcium 7.3 L Medications Administered Current Inpatient Medications Escitalopram Oxalate (Lexapro Tab) 10 mg PO HS [facility] Stop: 07/22/19 21:34 Last Admin: 06/27/19 20:13 Dose: 10 mg Documented by: Ampicillin Sodium/Sulbactam Sodium 3,000 mg/ Sodium Chloride 108 mls @ 216 mls/hr IV Q6H [facility] Stop: 07/02/19 19:59 Last Infusion: 06/28/19 15:20 Dose: Infused Documented by: Magnesium Oxide (Mag-Ox) 400 mg PO BID [facility] Stop: 07/28/19 20:59 Miscellaneous Information (Ampicillin/Sulbactam Consult) 1 ea N/A UD PRN PRN Reason: Consult Stop: 07/22/19 19:13 Paliperidone Palmitate (Invega Sustenna) 156 mg IM ONE ONE Stop: 07/02/19 09:01 Quetiapine Fumarate (Seroquel) 200 mg PO HS [facility] Stop: 07/22/19 20:59 Last Admin: 06/27/19 20:13 Dose: 200 mg Documented by: (1) Anemia Anemia type: unspecified type Qualified Code(s): D64.9 - Anemia, unspecified
[2019-06-28] MEDS: QUETIAPINE FUMARATE 200 MG TAB PO SCH (20:10)
[2019-06-28] MEDS: MAGNESIUM OXIDE 400 MG TAB PO SCH (20:10)
[2019-06-28] MEDS: ESCITALOPRAM OXALATE 10 MG TAB PO SCH (20:10)
[2019-06-29] MEDS: AMPICILLIN/SULBACTAM SOD 3,000 MG in 0.9 % SODIUM CHLORIDE 100 ML IV SCH ×4 (01:50→19:49)
[2019-06-29 06:25] LABS: Creatinine Clr Calc Pharmacy 110.2 ml/min; Est GFR (African American) 120.2; Est GFR (Non-African American) 103.7
[2019-06-29] MEDS: MAGNESIUM OXIDE 400 MG TAB PO SCH ×2 (08:18→20:24)
--- NOTE | 2019-06-29 17:23 | Hospitalist Progress Note ---
Date of Service June 29, 2019 Assessment & Plan (1) Abscess, gluteal: (2) Cellulitis, gluteal: This is a 39yo M with a PMH of paranoid schizophrenia, depression, hidradenitis suppurativa, chronic perirectal abscess, tobacco use disorder and anemia who presents after 302 was completed due to patient being unable to care for himself in jail setting. Multiple hospital admission for gluteal and saloni-rectal abscesses with chronic buttock pain. Non compliant with abx therapy in the past Very poor hygiene Started on intravenous continue Unasyn Blood cx no growth so far and wound cx grew [place] Appreciate surgery input and recommendation No indication of IND at this time Clinically much better We will get wound care consult and continue current antibiotic We will continue current intravenous antibiotic and change to oral Augmentin on discharge Appreciate wound care input and recommendation Denies any acute symptoms from bilateral gluteal abscess There is no drainage (3) Hypokalemia: Possible related to poor oral intake K 3 today Replaced with additional potassium supplement Continue monitor BMP-K remains low and will supplement Normalized (4) Paranoid schizophrenia: On Seroquel 200mg HS Psych on board and does not feels that he has the capacity to refuse medical care at this time. To increase compliance psych team plan to start on Invega with first injection schedule tomorrow Continue monitor closely Appreciate psychiatry input and recommendation Has been getting intramuscular Invega which can be given every 4 weeks Symptomatically much better Awaiting placement Remains stable without any hallucinations (5) Depression: Continue Lexapro (6) Anemia: Multifactorial with history of thalassemia and chronic infection -Hgb 9.8 on admission Hgb dropped to 8.1 today Continue Monitor -8.7 as of 06/27/2019 (7) Tobacco use disorder: Counseling on smoking cessation DVT Ppx: SCDs Code status: FULL PCP: Tanja Dispo: Has had a multi-disciplinary meeting today Overall is stressed was given to wound care and maintain good hygiene Fortunately he has been agreeable to IM medications for schizophrenia and that is going to be helpful for his symptoms I had a long discussion with him this afternoon for the proposed care Awaiting placement Subjective 06/27/2019 The patient was seen and examined in medical floor He denies any complaints today He has been very rational and has been listening to what ever he was asked to 06/28/2019 The patient was seen and examined in medical floor He has been stable and taking the medications and trying to maintain hygiene as advised He is a schizophrenic symptoms seem to be improving 06/29/2019 The patient was seen and examined in medical floor He has been stable He has been taking shower daily and listening to the healthcare personnel's Awaiting placement Review of Systems 2 Review of Systems: All systems reviewed and are unremarkable except as noted below Psychiatric: + anxiety; no hopelessness, no irritability, no paranoia, no auditory hallucinations, no visual hallucinations and no tactile hallucinations Physical Exam Physical Exam: Lying in bed comfortably Constitutional: + thin; no acute distress and not ill appearing Eyes: PERRL, conjunctivae normal, anicteric sclerae ENMT: external ear and nose normal, oropharynx normal Neck: trachea midline, no thyromegaly Respiratory: normal respiratory effort Auscultation: lungs clear to auscultation bilaterally Cardiovascular: Rate/Rhythm: regular rate and regular rhythm Heart Sounds: no murmur Gastrointestinal (Abdomen): Inspection/Auscultation: abdomen normal to inspection Percussion/Palpation: abdomen soft; abdomen nontender Psychiatric: Orientation: alert and oriented x 3 Results & Data ([facility]) Vital Signs (Past 12 Hours) Vital Signs Temp Pulse Resp BP BP Pulse Ox 06/29/19 14:58 36.3 C L 73 16 143/81 H 98 06/29/19 07:16 36.8 C 58 L 20 122/70 94 Laboratory Results [facility] 06/29/19 05:25 Creatinine 0.92 Medications Administered Current Inpatient Medications Escitalopram Oxalate (Lexapro Tab) 10 mg PO HS [facility] Stop: 07/22/19 21:34 Last Admin: 06/28/19 20:10 Dose: 10 mg Documented by: Ampicillin Sodium/Sulbactam Sodium 3,000 mg/ Sodium Chloride 108 mls @ 216 mls/hr IV Q6H [facility] Stop: 07/02/19 19:59 Last Infusion: 06/29/19 15:10 Dose: Infused Documented by: Magnesium Oxide (Mag-Ox) 400 mg PO BID [facility] Stop: 07/28/19 20:59 Last Admin: 06/29/19 08:18 Dose: 400 mg Documented by: Miscellaneous Information (Ampicillin/Sulbactam Consult) 1 ea N/A UD PRN PRN Reason: Consult Stop: 07/22/19 19:13 Paliperidone Palmitate (Invega Sustenna) 156 mg IM ONE ONE Stop: 07/02/19 09:01 Quetiapine Fumarate (Seroquel) 200 mg PO [facility] Stop: 07/22/19 20:59 Last Admin: 06/28/19 20:10 Dose: 200 mg Documented by: (1) Anemia Anemia type: unspecified type Qualified Code(s): D64.9 - Anemia, unspecified
[2019-06-29] MEDS: QUETIAPINE FUMARATE 200 MG TAB PO SCH (20:24)
[2019-06-29] MEDS: ESCITALOPRAM OXALATE 10 MG TAB PO SCH (20:24)
[2019-06-30] MEDS: AMPICILLIN/SULBACTAM SOD 3,000 MG in 0.9 % SODIUM CHLORIDE 100 ML IV SCH ×4 (01:25→20:13)
[2019-06-30 06:09] LABS: Basophils # (auto) 0.01 K/uL (0-0.2); Basophils % (auto) 0.1 %; Eosinophils # (auto) 0.23 K/uL (0-0.5); Eosinophils % (auto) 2.5 %; Hematocrit (blood only) 26.7 % (42-52); Hemoglobin 8.7 g/dL (14.0-18.0); Immature Granulocytes # (auto) 0.08 K/uL (0.00-0.02); Immature Granulocytes % (auto) 0.9 %; Lymphocytes # (auto) 3.56 K/uL (1.2-3.4); Lymphocytes % (auto) 38.8 %; Mean Corpuscular Hemoglobin 28.5 pg (25-34); Mean Corpuscular Hgb Conc 32.6 g/dL (32-36); Mean Corpuscular Volume 87.5 fL (80-100); Mean Platelet Volume 8.8 fL (7.4-10.4); Monocytes # (auto) 0.56 K/uL (0.11-0.59); Monocytes % (auto) 6.1 %; Neutrophils # (auto) 4.74 K/uL (1.4-6.5); Neutrophils % (auto) 51.6 %; Platelet Count 772 K/uL (130-400); RDW Coefficient of Variation 18.1 % (11.5-14.5); Red Blood Count 3.05 M/uL (4.7-6.1); White Blood Count 9.18 K/uL (4.8-10.8)
[2019-06-30 06:48] LABS: BUN Creatinine Ratio 6.6 (10-20); Calcium 7.6 mg/dl (8.5-10.1); Creatinine Clr Calc Pharmacy 107.9 ml/min; Est GFR (African American) 117.1; Magnesium 1.6 mg/dl (1.8-2.4); Potassium 4.4 mmol/L (3.5-5.1)
[2019-06-30] MEDS: MAGNESIUM OXIDE 400 MG TAB PO SCH ×2 (08:59→20:59)
[2019-06-30] MEDS: NICOTINE 14 MG/24 HR PATCH TD SCH (12:00)
--- NOTE | 2019-06-30 14:09 | Hospitalist Progress Note ---
Date of Service June 30, 2019 Assessment & Plan (1) Abscess, gluteal: (2) Cellulitis, gluteal: This is a 39yo M with a PMH of paranoid schizophrenia, depression, hidradenitis suppurativa, chronic perirectal abscess, tobacco use disorder and anemia who presents after 302 was completed due to patient being unable to care for himself in residential setting. Multiple hospital admission for gluteal and saloni-rectal abscesses with chronic buttock pain. Non compliant with abx therapy in the past Very poor hygiene Started on intravenous continue Unasyn Blood cx no growth so far and wound cx grew [place] Appreciate surgery input and recommendation No indication of IND at this time Clinically much better We will get wound care consult and continue current antibiotic We will continue current intravenous antibiotic and change to oral Augmentin on discharge Appreciate wound care input and recommendation Denies any acute symptoms from bilateral gluteal abscess There is no drainage Awaiting placement (3) Hypokalemia: Possible related to poor oral intake K 3 today Replaced with additional potassium supplement Continue monitor BMP-K remains low and will supplement Normalized (4) Paranoid schizophrenia: On Seroquel 200mg HS Psych on board and does not feels that he has the capacity to refuse medical care at this time. To increase compliance psych team plan to start on Invega with first injection schedule tomorrow Continue monitor closely Appreciate psychiatry input and recommendation Has been getting intramuscular Invega which can be given every 4 weeks Symptomatically much better Awaiting placement Remains stable without any hallucinations No schizophrenic symptoms (5) Depression: Continue Lexapro (6) Anemia: Multifactorial with history of thalassemia and chronic infection -Hgb 9.8 on admission Hgb dropped to 8.1 today Continue Monitor -8.7 as of 06/27/2019 We will check his blood on Tuesday (7) Tobacco use disorder: Counseling on smoking cessation DVT Ppx: SCDs Code status: FULL PCP: Tanja Dispo: Has had a multi-disciplinary meeting today Overall is stressed was given to wound care and maintain good hygiene Fortunately he has been agreeable to IM medications for schizophrenia and that is going to be helpful for his symptoms I had a long discussion with him this afternoon for the proposed care Awaiting placement Subjective 06/27/2019 The patient was seen and examined in medical floor He denies any complaints today He has been very rational and has been listening to what ever he was asked to 06/28/2019 The patient was seen and examined in medical floor He has been stable and taking the medications and trying to maintain hygiene as advised He is a schizophrenic symptoms seem to be improving 06/29/2019 The patient was seen and examined in medical floor He has been stable He has been taking shower daily and listening to the healthcare personnel's Awaiting placement 06/30/2019 The patient was seen and examined in medical floor He has been feeling a lot better and participating in his medical care Denies any significant symptoms Review of Systems Review of Systems: All systems reviewed and are unremarkable except as noted below Psychiatric: + anxiety; no hopelessness, no irritability, no paranoia, no auditory hallucinations, no visual hallucinations and no tactile hallucinations Physical Exam Physical Exam: Lying in bed comfortably Constitutional: + thin; no acute distress and not ill appearing Eyes: PERRL, conjunctivae normal, anicteric sclerae ENMT: external ear and nose normal, oropharynx normal Neck: trachea midline, no thyromegaly Respiratory: normal respiratory effort Auscultation: lungs clear to auscultation bilaterally Cardiovascular: Rate/Rhythm: regular rate and regular rhythm Heart Sounds: no murmur Gastrointestinal (Abdomen): Inspection/Auscultation: abdomen normal to inspection Percussion/Palpation: abdomen soft; abdomen nontender Musculoskeletal: No acute arthritis in any joint Psychiatric: Orientation: alert and oriented x 3 Lymphatic: no cervical or axillary lymphadenopathy Results & Data ([facility]) Vital Signs (Past 12 Hours) Vital Signs Temp Pulse Resp BP Pulse Ox 06/30/19 07:00 36.7 C 57 L 20 104/55 L 93 (1) Anemia Anemia type: unspecified type Qualified Code(s): D64.9 - Anemia, unspecified
[2019-06-30] MEDS: QUETIAPINE FUMARATE 200 MG TAB PO SCH (20:59)
[2019-06-30] MEDS: ESCITALOPRAM OXALATE 10 MG TAB PO SCH (20:59)
[2019-07-01] MEDS: AMPICILLIN/SULBACTAM SOD 3,000 MG in 0.9 % SODIUM CHLORIDE 100 ML IV SCH ×4 (02:21→20:09)
[2019-07-01] MEDS: MAGNESIUM OXIDE 400 MG TAB PO SCH ×2 (08:35→20:13)
[2019-07-01] MEDS: NICOTINE 14 MG/24 HR PATCH TD SCH (08:35)
--- NOTE | 2019-07-01 11:47 | Hospitalist Progress Note ---
Date of Service July 01, 2019 Assessment & Plan (1) Abscess, gluteal: (2) Cellulitis, gluteal: This is a 39yo M with a PMH of paranoid schizophrenia, depression, hidradenitis suppurativa, chronic perirectal abscess, tobacco use disorder and anemia who presents after 302 was completed due to patient being unable to care for himself in senior care setting. Multiple hospital admission for gluteal and saloni-rectal abscesses with chronic buttock pain. Non compliant with abx therapy in the past Very poor hygiene Started on intravenous continue Unasyn Blood cx no growth so far and wound cx grew [place] Appreciate surgery input and recommendation No indication of IND at this time Clinically much better We will get wound care consult and continue current antibiotic We will continue current intravenous antibiotic and change to oral Augmentin on discharge Appreciate wound care input and recommendation Denies any acute symptoms from bilateral gluteal abscess There is no drainage Awaiting placement Will get CBC, complete metabolic panel and electrolytes tomorrow (3) Hypokalemia: Possible related to poor oral intake K 3 today Replaced with additional potassium supplement Continue monitor BMP-K remains low and will supplement Normalized (4) Paranoid schizophrenia: On Seroquel 200mg HS Psych on board and does not feels that he has the capacity to refuse medical care at this time. To increase compliance psych team plan to start on Invega with first injection schedule tomorrow Continue monitor closely Appreciate psychiatry input and recommendation Has been getting intramuscular Invega which can be given every 4 weeks Symptomatically much better Awaiting placement Denies any significant symptoms of anxiety, depression and schizophrenia (5) Depression: Continue Lexapro (6) Anemia: Multifactorial with history of thalassemia and chronic infection -Hgb 9.8 on admission Hgb dropped to 8.1 today Continue Monitor -8.7 as of 06/27/2019 We will check his blood on Tuesday (7) Tobacco use disorder: Counseling on smoking cessation DVT Ppx: SCDs Code status: FULL PCP: Tanja Richardso: Has had a multi-disciplinary meeting today Overall is stressed was given to wound care and maintain good hygiene Fortunately he has been agreeable to IM medications for schizophrenia and that is going to be helpful for his symptoms I had a long discussion with him this afternoon for the proposed care Awaiting placement Subjective 06/27/2019 The patient was seen and examined in medical floor He denies any complaints today He has been very rational and has been listening to what ever he was asked to 06/28/2019 The patient was seen and examined in medical floor He has been stable and taking the medications and trying to maintain hygiene as advised He is a schizophrenic symptoms seem to be improving 06/29/2019 The patient was seen and examined in medical floor He has been stable He has been taking shower daily and listening to the healthcare personnel's Awaiting placement 06/30/2019 The patient was seen and examined in medical floor He has been feeling a lot better and participating in his medical care Denies any significant symptoms 07/01/2019 The patient was seen and examined in medical floor He remained stable and denies any symptoms whatsoever He has been following the instructions Review of Systems Review of Systems: All systems reviewed and are unremarkable except as noted below Psychiatric: + anxiety; no hopelessness, no irritability, no paranoia, no auditory hallucinations, no visual hallucinations and no tactile hallucinations Physical Exam Physical Exam: Lying in bed comfortably Constitutional: + thin; no acute distress and not ill appearing Eyes: PERRL, conjunctivae normal, anicteric sclerae ENMT: external ear and nose normal, oropharynx normal Neck: trachea midline, no thyromegaly Respiratory: normal respiratory effort Auscultation: lungs clear to auscultation bilaterally Cardiovascular: Rate/Rhythm: regular rate and regular rhythm Heart Sounds: no murmur Gastrointestinal (Abdomen): Inspection/Auscultation: abdomen normal to inspection Percussion/Palpation: abdomen soft; abdomen nontender Psychiatric: Orientation: alert and oriented x 3 Hallucinations: no auditory hallucinations, no visual hallucinations, no tactile hallucinations and no gustatory hallucinations Lymphatic: no cervical or axillary lymphadenopathy Results & Data ([facility]) Vital Signs (Past 12 Hours) Vital Signs Temp Pulse Resp BP Pulse Ox 07/01/19 06:58 36.8 C 63 15 118/68 95 Medications Administered Current Inpatient Medications Escitalopram Oxalate (Lexapro Tab) 10 mg PO HS [facility] Stop: 07/22/19 21:34 Last Admin: 06/30/19 20:59 Dose: 10 mg Documented by: Ampicillin Sodium/Sulbactam Sodium 3,000 mg/ Sodium Chloride 108 mls @ 216 mls/hr IV Q6H [facility] Stop: 07/02/19 19:59 Last Infusion: 07/01/19 09:30 Dose: Infused Documented by: Magnesium Oxide (Mag-Ox) 400 mg PO BID [facility] Stop: 07/28/19 20:59 Last Admin: 07/01/19 08:35 Dose: 400 mg Documented by: Miscellaneous (Remove Nicoderm Patch) 1 ea N/A DAILY@0859 [facility] Stop: 07/31/19 08:58 Last Admin: 07/01/19 08:36 Dose: 1 ea Documented by: Miscellaneous Information (Ampicillin/Sulbactam Consult) 1 ea N/A UD PRN PRN Reason: Consult Stop: 07/22/19 19:13 Nicotine (Nicoderm Cq) 14 mg TD QAM [facility] Stop: 07/30/19 11:14 Last Admin: 07/01/19 08:35 Dose: 14 mg Documented by: Paliperidone Palmitate (Invega Sustenna) 156 mg IM ONE ONE Stop: 07/02/19 09:01 Quetiapine Fumarate (Seroquel) 200 mg PO HS [facility] Stop: 07/22/19 20:59 Last Admin: 06/30/19 20:59 Dose: 200 mg Documented by: (1) Anemia Anemia type: unspecified type Qualified Code(s): D64.9 - Anemia, unspecified
[2019-07-01] MEDS: ESCITALOPRAM OXALATE 10 MG TAB PO SCH (20:08)
[2019-07-01] MEDS: QUETIAPINE FUMARATE 200 MG TAB PO SCH (20:08)
[2019-07-02] MEDS ORDERED: SODIUM CHLORIDE 0.9% 500 ML IV SCH ×2 (00:45→06:30)
[2019-07-02] MEDS: AMPICILLIN/SULBACTAM SOD 3,000 MG in 0.9 % SODIUM CHLORIDE 100 ML IV SCH ×3 (02:00→14:28)
[2019-07-02 06:11] LABS: Basophils # (auto) 0.01 K/uL (0-0.2); Basophils % (auto) 0.1 %; Eosinophils # (auto) 0.17 K/uL (0-0.5); Hematocrit (blood only) 27.9 % (42-52); Hemoglobin 9.1 g/dL (14.0-18.0); Immature Granulocytes # (auto) 0.04 K/uL (0.00-0.02); Immature Granulocytes % (auto) 0.5 %; Lymphocytes # (auto) 3.52 K/uL (1.2-3.4); Mean Corpuscular Hemoglobin 28.7 pg (25-34); Mean Corpuscular Hgb Conc 32.6 g/dL (32-36); Mean Platelet Volume 8.2 fL (7.4-10.4); Monocytes # (auto) 0.59 K/uL (0.11-0.59); Monocytes % (auto) 6.9 %; Neutrophils # (auto) 4.26 K/uL (1.4-6.5); Neutrophils % (auto) 49.5 %; Platelet Count 728 K/uL (130-400); RDW Coefficient of Variation 18.2 % (11.5-14.5); RDW Standard Deviation 58.8 fL (36.4-46.3); Red Blood Count 3.17 M/uL (4.7-6.1); White Blood Count 8.59 K/uL (4.8-10.8)
[2019-07-02 06:43] LABS: Albumin Level 2.7 gm/dl (3.4-5.0); BUN Creatinine Ratio 10.9 (10-20); Calcium 8.3 mg/dl (8.5-10.1); Creatinine Clr Calc Pharmacy 97.5 ml/min; Est GFR (African American) 103.6; Est GFR (Non-African American) 89.4; Potassium 5.1 mmol/L (3.5-5.1)
[2019-07-02 06:45] LABS: Albumin Globulin Ratio 0.6 (0.9-2); Bilirubin,Total 0.2 mg/dl (0.2-1); Globulin 4.7 gm/dl (2.5-4.0); Phosphorus 4.1 mg/dl (2.5-4.9); Total Protein 7.4 gm/dl (6.4-8.2)
[2019-07-02] MEDS: MAGNESIUM OXIDE 400 MG TAB PO SCH ×2 (08:02→20:47)
[2019-07-02] MEDS ORDERED: PALIPERIDONE PALMITATE 156 MG/ML SYR IM ONE (09:00)
[2019-07-02] MEDS: NICOTINE 14 MG/24 HR PATCH TD SCH (09:17)
--- NOTE | 2019-07-02 14:54 | Hospitalist Progress Note ---
Date of Service July 02, 2019 Assessment & Plan (1) Abscess, gluteal: (2) Cellulitis, gluteal: This is a 39yo M with a PMH of paranoid schizophrenia, depression, hidradenitis suppurativa, chronic perirectal abscess, tobacco use disorder and anemia who presents after 302 was completed due to patient being unable to care for himself in [facility] setting. Multiple hospital admission for gluteal and saloni-rectal abscesses with chronic buttock pain. Non compliant with abx therapy in the past Very poor hygiene Started on intravenous continue Unasyn Blood cx no growth so far and wound cx grew [place] Appreciate surgery input and recommendation No indication of IND at this time Clinically much better We will get wound care consult and continue current antibiotic We will continue current intravenous antibiotic and change to oral Augmentin on discharge Appreciate wound care input and recommendation Denies any acute symptoms from bilateral gluteal abscess White cell count and hemoglobin remain stable We will continue oral Augmentin for now Awaiting placement (3) Hypokalemia: Possible related to poor oral intake K 3 today Replaced with additional potassium supplement Continue monitor BMP-K remains low and will supplement Normalized (4) Paranoid schizophrenia: On Seroquel 200mg HS Psych on board and does not feels that he has the capacity to refuse medical care at this time. To increase compliance psych team plan to start on Invega with first injection schedule tomorrow Continue monitor closely Appreciate psychiatry input and recommendation Has been getting intramuscular Invega which can be given every 4 weeks Denies any significant symptoms of anxiety, depression and schizophrenia Denies any schizophrenic symptoms (5) Depression: Continue Lexapro (6) Anemia: Multifactorial with history of thalassemia and chronic infection -Hgb 9.8 on admission Hgb dropped to 8.1 today Continue Monitor -8.7 as of 06/27/2019 We will check his blood on Tuesday Hemoglobin remains more than 9 (7) Tobacco use disorder: Counseling on smoking cessation DVT Ppx: SCDs Code status: FULL PCP: Tanja Dispo: Has had a multi-disciplinary meeting today Overall is stressed was given to wound care and maintain good hygiene Fortunately he has been agreeable to IM medications for schizophrenia and that is going to be helpful for his symptoms I had a long discussion with him this afternoon for the proposed care Awaiting placement Admission and Anticipated Discharge Date Admission Date: June 22, 2019 Subjective 06/27/2019 The patient was seen and examined in medical floor He denies any complaints today He has been very rational and has been listening to what ever he was asked to 06/28/2019 The patient was seen and examined in medical floor He has been stable and taking the medications and trying to maintain hygiene as advised He is a schizophrenic symptoms seem to be improving 06/29/2019 The patient was seen and examined in medical floor He has been stable He has been taking shower daily and listening to the healthcare personnel's Awaiting placement 06/30/2019 The patient was seen and examined in medical floor He has been feeling a lot better and participating in his medical care Denies any significant symptoms 07/01/2019 The patient was seen and examined in medical floor He remained stable and denies any symptoms whatsoever He has been following the instructions 07/02/2019 The patient was seen and examined in medical floor He remains stable without any acute symptoms He has been listening to the care providers Review of Systems Review of Systems: All systems reviewed and are unremarkable except as noted below Psychiatric: + anxiety; no hopelessness, no irritability, no paranoia, no auditory hallucinations, no visual hallucinations and no tactile hallucinations Physical Exam Physical Exam: Lying in bed comfortably Constitutional: + thin; no acute distress and not ill appearing Eyes: PERRL, conjunctivae normal, anicteric sclerae ENMT: external ear and nose normal, oropharynx normal Neck: trachea midline, no thyromegaly Respiratory: normal respiratory effort Auscultation: lungs clear to auscultation bilaterally Cardiovascular: Rate/Rhythm: regular rate and regular rhythm Heart Sounds: no murmur Gastrointestinal (Abdomen): Inspection/Auscultation: abdomen normal to inspection Percussion/Palpation: abdomen soft; abdomen nontender Musculoskeletal: No acute arthritis in any joint Neurologic: Alert, awake and oriented. No hallucinations. No focal sensory and/or motor deficit Psychiatric: Orientation: alert and oriented x 3 Hallucinations: no auditory hallucinations, no visual hallucinations, no tactile hallucinations and no gustatory hallucinations Lymphatic: no cervical or axillary lymphadenopathy Results & Data ([facility]) Vital Signs (Past 12 Hours) Vital Signs Temp Pulse Resp BP Pulse Ox 07/02/19 06:30 36.7 C 54 L 16 94/56 L 96 07/02/19 05:45 88/53 L Laboratory Results Short CBC 07/02/19 Range/Units 05:59 WBC 8.59 (4.8-10.8) K/uL Hgb 9.1 L (14.0-18.0) g/dL Hct 27.9 L (42-52) % Plt Count 728 H (130-400) K/uL BMP 07/02/19 05:59 Sodium 139 Potassium 5.1 Chloride 110 H Carbon Dioxide 24 BUN 11 Creatinine 1.04 Glucose 86 Calcium 8.3 L Liver Function 07/02/19 Range/Units 05:59 Total Bilirubin 0.2 (0.2-1) mg/dl AST 16 (15-37) U/L ALT 18 (12-78) U/L Alkaline Phosphatase 59 (45-117) U/L Albumin 2.7 L (3.4-5.0) gm/dl Medications Administered Current Inpatient Medications Amoxicillin/Clavulanate Potassium (Augmentin 875mg) 1 tab PO BIDM [facility] Stop: 07/16/19 23:59 Escitalopram Oxalate (Lexapro Tab) 10 mg PO [facility] Stop: 07/22/19 21:34 Last Admin: 07/01/19 20:08 Dose: 10 mg Documented by: Ampicillin Sodium/Sulbactam Sodium 3,000 mg/ Sodium Chloride 108 mls @ 216 mls/hr IV Q6H [facility] Stop: 07/02/19 19:59 Last Admin: 07/02/19 14:28 Dose: 150 mls/hr Documented by: Magnesium Oxide (Mag-Ox) 400 mg PO BID [facility] Stop: 07/28/19 20:59 Last Admin: 07/02/19 08:02 Dose: 400 mg Documented by: Miscellaneous (Remove Nicoderm Patch) 1 ea N/A DAILY@0859 [facility] Stop: 07/31/19 08:58 Last Admin: 07/02/19 09:17 Dose: Not Given Documented by: Miscellaneous Information (Ampicillin/Sulbactam Consult) 1 ea N/A UD PRN PRN Reason: Consult Stop: 07/02/19 23:59 Nicotine (Nicoderm Cq) 14 mg TD QAM [facility] Stop: 07/30/19 11:14 Last Admin: 07/02/19 09:17 Dose: Not Given Documented by: Quetiapine Fumarate (Seroquel) 200 mg PO [facility] Stop: 07/22/19 20:59 Last Admin: 07/01/19 20:08 Dose: 200 mg Documented by: (1) Anemia Anemia type: unspecified type Qualified Code(s): D64.9 - Anemia, unspecified
[2019-07-02] MEDS: AMOXICILLIN/CLAVULANATE 875 MG TAB PO SCH (19:09)
[2019-07-02] MEDS: ESCITALOPRAM OXALATE 10 MG TAB PO SCH (20:47)
[2019-07-02] MEDS: QUETIAPINE FUMARATE 200 MG TAB PO SCH (20:47)
[2019-07-03] MEDS: AMOXICILLIN/CLAVULANATE 875 MG TAB PO SCH ×2 (09:20→17:23)
[2019-07-03] MEDS: MAGNESIUM OXIDE 400 MG TAB PO SCH (09:20)
[2019-07-03] MEDS: NICOTINE 14 MG/24 HR PATCH TD SCH (09:20)
--- NOTE | 2019-07-03 13:51 | Communication Note ---
Date of Service: July 03, 2019 contacted by Zohreh Zelaya, informed patient is being discharged today, and [facility] requested a prescription for his next Invega Sustenna in [place]. Second loading dose received yesterday 07/02/2019, so next maintenance injection will be due 07/30/2019. Advised her that he should see his outpatient psychiatrist within 2 weeks, and would recommend that he be seen prior to the maintenance injection so that they can make a decision about the dose before the shot is due.
--- NOTE | 2019-07-03 14:45 | Hospitalist Progress Note ---
Date of Service July 03, 2019 Assessment & Plan (1) Abscess, gluteal: (2) Cellulitis, gluteal: This is a 39yo M with a PMH of paranoid schizophrenia, depression, hidradenitis suppurativa, chronic perirectal abscess, tobacco use disorder and anemia who presents after 302 was completed due to [facility] himself [facility]. Multiple hospital admission for gluteal and saloni-rectal abscesses with chronic buttock pain. Non compliant with abx therapy in the past Very poor hygiene Started on intravenous continue Unasyn Blood cx no growth so far and wound cx grew [place] Appreciate surgery input and recommendation No indication of IND at this time Clinically much better We will get wound care consult and continue current antibiotic We will continue current intravenous antibiotic and change to oral Augmentin on discharge Appreciate wound care input and recommendation Denies any acute symptoms from bilateral gluteal abscess White cell count and hemoglobin remain stable We will continue oral Augmentin for now and continue for a total of 21 days Likely to be going home for now and waiting for formal placement in a facility (3) Hypokalemia: Possible related to poor oral intake K 3 today Replaced with additional potassium supplement Continue monitor BMP-K remains low and will supplement Normalized (4) Paranoid schizophrenia: On Seroquel 200mg HS Psych on board and does not feels that he has the capacity to refuse medical care at this time. To increase compliance psych team plan to start on Invega with first injection schedule tomorrow Continue monitor closely Appreciate psychiatry input and recommendation Has been getting intramuscular Invega which can be given every 4 weeks Denies any significant symptoms of anxiety, depression and schizophrenia Denies any schizophrenic symptoms Schizophrenic symptoms are controlled with IM dose of Invega which can be given every 4 weeks as per the psychiatrist (5) Depression: Continue Lexapro (6) Anemia: Multifactorial with history of thalassemia and chronic infection -Hgb 9.8 on admission Hgb dropped to 8.1 today Continue Monitor -8.7 as of 06/27/2019 We will check his blood on Tuesday Hemoglobin remains more than 9 (7) Tobacco use disorder: Counseling on smoking cessation DVT Ppx: SCDs Code status: FULL PCP: Tanja Dispo: Has had a multi-disciplinary meeting today Overall is stressed was given to wound care and maintain good hygiene Fortunately he has been agreeable to IM medications for schizophrenia and that is going to be helpful for his symptoms I had a long discussion with him this afternoon for the proposed care Likely discharge home this afternoon Admission and Anticipated Discharge Date Admission Date: June 22, 2019 Subjective 06/27/2019 The patient was seen and examined in medical floor He denies any complaints today He has been very rational and has been listening to what ever he was asked to 06/28/2019 The patient was seen and examined in medical floor He has been stable and taking the medications and trying to maintain hygiene as advised He is a schizophrenic symptoms seem to be improving 06/29/2019 The patient was seen and examined in medical floor He has been stable He has been taking shower daily and listening to the healthcare personnel's Awaiting placement 06/30/2019 The patient was seen and examined in medical floor He has been feeling a lot better and participating in his medical care Denies any significant symptoms 07/01/2019 The patient was seen and examined in medical floor He remained stable and denies any symptoms whatsoever He has been following the instructions 07/02/2019 The patient was seen and examined in medical floor He remains stable without any acute symptoms He has been listening to the care providers 07/03/2019 Patient is seen and examined in medical floor He remains stable and has been waiting for placement Most likely he will be going home for now Tried to call the Dad but no reply yet Review of Systems Review of Systems: All systems reviewed and are unremarkable except as noted below Psychiatric: + anxiety; no hopelessness, no irritability, no paranoia, no auditory hallucinations, no visual hallucinations and no tactile hallucinations Physical Exam Physical Exam: Lying in bed comfortably Constitutional: + thin; no acute distress and not ill appearing Eyes: PERRL, conjunctivae normal, anicteric sclerae ENMT: external ear and nose normal, oropharynx normal Neck: trachea midline, no thyromegaly Respiratory: normal respiratory effort Auscultation: lungs clear to auscultation bilaterally Cardiovascular: Rate/Rhythm: regular rate and regular rhythm Heart Sounds: no murmur Gastrointestinal (Abdomen): Inspection/Auscultation: abdomen normal to inspection Percussion/Palpation: abdomen soft; abdomen nontender Neurologic: Alert, awake and oriented x3. No hallucinations and no focal neuro deficit Psychiatric: Orientation: alert and oriented x 3 Hallucinations: no auditory hallucinations, no visual hallucinations, no tactile hallucinations and no gustatory hallucinations Lymphatic: no cervical or axillary lymphadenopathy Results & Data ([facility]) Vital Signs (Past 12 Hours) Vital Signs Temp Pulse Resp BP Pulse Ox 07/03/19 06:25 36.5 C 62 18 94/58 L 95 (1) Anemia Anemia type: unspecified type Qualified Code(s): D64.9 - Anemia, unspecified
--- NOTE | 2019-07-03 17:04 | Discharge Summary ---
Date of Service July 03, 2019 Admission HPI Per Admitting Provider This is a 39yo M with a PMH of paranoid schizophrenia, depression, hidradenitis suppurativa, chronic perirectal abscess, tobacco use disorder and anemia who presents after 302 was completed due to patient being unable to care for himself in long-term setting. Patient with history of gluteal and saloni-rectal abscesses with chronic buttock pain. Follows with PCP Dr. Agrawal and has been prescribed antibiotics this past March and April but patient denies taking them. Most recently prescribed cefdinir at the beginning of April. Perirectal abscesses complicated by patient being non-compliant with care at long-term. Has reportedly refused to bathe for the past month and has purulent drainage coming from abscess area. Patient denies any fever, chills, lightheadedness, visual changes, chest pain, SOB, nausea, vomiting, abdominal pain, dysuria or diarrhea. Has been moving bowel regularly. States he has been taking his Seroquel and Lexapro medications "off and on". Does complain of generalized weakness with known multifactorial anemia due to known thalassemia and chronic infection. History of I&D of rectal abscess in 2007, 2008 and 2013 at [facility]. Admission Exam Per Admitting Provider Physical Exam: General Appearance: WD/WN, vitals as above, thin, poorly groomed male, pleasant, conversing easily Head: normocephalic, atraumatic Eyes: normal inspection, PERRL, conjunctivae normal, anicteric sclerae ENT: external ear and nose normal, oropharynx normal Neck: trachea midline, no thyromegaly normal visual inspection Respiratory: lungs clear to auscultation, no wheeze, rales, rhonchi. Normal insp/exp effort, no accessory muscle use Cardiovascular: regular rate, rhythm, no murmur, normal peripheral pulses. Vessels: no JVD or carotid bruit Chest: normal inspection of chest Abdomen/GI: normal bowel sounds, soft, nontender, no hepatosplenomegaly Extremities/Musculoskelatal: no cyanosis or clubbing, extremities motor strength 5/5 Neurologic: PERRL, EOMI, accommodation nl, no face palsy, no dysarthria, CN's II-XI intact bilaterally and moves all extremities Psychiatric: A+Ox3, flattened affect Skin: normal color, warm/dry. + multiple indurated lesions with surrounding erythema and purulent discharge on bilateral buttocks Principal Diagnosis Chronic bilateral gluteal abscess with cellulitis, paranoid schizophrenia Discharge Exam Constitutional + thin; no acute distress and not ill appearing Eyes PERRL, conjunctivae normal, anicteric sclerae ENMT external ear and nose normal, oropharynx normal Neck trachea midline, no thyromegaly Respiratory normal respiratory effort Auscultation: lungs clear to auscultation bilaterally Cardiovascular Rate/Rhythm: regular rate and regular rhythm Heart Sounds: no murmur Gastrointestinal (Abdomen) Inspection/Auscultation: abdomen normal to inspection Percussion/Palpation: abdomen soft; abdomen nontender Psychiatric Orientation: alert and oriented x 3 Hallucinations: no auditory hallucinations, no visual hallucinations, no tactile hallucinations and no gustatory hallucinations Lymphatic no cervical or axillary lymphadenopathy Discharge Data Allergies Allergy/AdvReac Type Severity Reaction Status Date / Time No Known Allergies Allergy Verified 07/02/19 01:56 Consultations 06/22/19 16:39 ED Decision to Admit Stat 06/22/19 18:17 Consult Case Management - Discharge Planning Routine Consult Psychiatry Routine 06/23/19 08:00 Consult General Surgery Routine Ordered Studies 06/22/19 12:56 CT pelvis w/IV con only Stat Hospital Course (1) Abscess, gluteal: (2) Cellulitis, gluteal: This is a 39yo M with a PMH of paranoid schizophrenia, depression, hidradenitis suppurativa, chronic perirectal abscess, tobacco use disorder and anemia who presents after 302 was completed due to patient being unable to care for himself in long-term setting. Multiple hospital admission for gluteal and saloni-rectal abscesses with chronic buttock pain. Non compliant with abx therapy in the past Very poor hygiene Started on intravenous continue Unasyn Blood cx no growth so far and wound cx grew [place] Appreciate surgery input and recommendation No indication of IND at this time Clinically much better We will get wound care consult and continue current antibiotic We will continue current intravenous antibiotic and change to oral Augmentin on discharge Appreciate wound care input and recommendation Denies any acute symptoms from bilateral gluteal abscess White cell count and hemoglobin remain stable We will continue oral Augmentin for now and continue for a total of 21 days Likely to be going home for now and waiting for formal placement in a facility (3) Hypokalemia: Possible related to poor oral intake K 3 today Replaced with additional potassium supplement Continue monitor BMP-K remains low and will supplement Normalized (4) Paranoid schizophrenia: On Seroquel 200mg HS Psych on board and does not feels that he has the capacity to refuse medical care at this time. To increase compliance psych team plan to start on Invega with first injection schedule tomorrow Continue monitor closely Appreciate psychiatry input and recommendation Has been getting intramuscular Invega which can be given every 4 weeks Denies any significant symptoms of anxiety, depression and schizophrenia Denies any schizophrenic symptoms Schizophrenic symptoms are controlled with IM dose of Invega which can be given every 4 weeks as per the psychiatrist (5) Depression: Continue Lexapro (6) Anemia: Multifactorial with history of thalassemia and chronic infection -Hgb 9.8 on admission Hgb dropped to 8.1 today Continue Monitor -8.7 as of 06/27/2019 We will check his blood on Tuesday Hemoglobin remains more than 9 (7) Tobacco use disorder: Counseling on smoking cessation DVT Ppx: SCDs Code status: FULL PCP: Tanja Dispo: Has had a multi-disciplinary meeting today Overall is stressed was given to wound care and maintain good hygiene Fortunately he has been agreeable to IM medications for schizophrenia and that is going to be helpful for his symptoms I had a long discussion with him this afternoon for the proposed care Likely discharge home this afternoon Total Time Total Time Spent Total Time Spent (In Minutes): 35 minutes Total Time Includes: Examination of the Patient, Discharge Planning, Medication Reconciliation and Communication With Other Providers Discharge Plan Discharge Items Patient Disposition: Home - Home Health Services Reason For Visit: HYPOKALEMIA,GLUTEAL ABSCESSES Discharge Diagnosis: Chronic bilateral gluteal abscess with cellulitis, paranoid schizophrenia Condition on Discharge: Good Activity: Resume your previous activity Non-emergency contact: Primary Care Provider Call non-emergency contact if: you have any medication questions and your symptoms worsen Follow-up/Referrals: Kenneth Agrawal DO [Primary Care Provider] - 07/06/19 11:00 am (*Follow up appt with Dr. Agrawal Thursday 07/06 @ 1100. Please show up 15 minutes prior to appt time. If this appt time does not work for you please call [phone] to reschedule.* Please keep any follow-up appointment with your psychiatrist) Diet: Regular Addtl Attending Provider Instructions: Please take precaution to avoid fall Maintain good general hygiene as was advised Wound care and dressing as per wound care nurse instruction Please take take the injection for schizophrenia as advised by the psychiatrist Pending Studies at Discharge: No Stand-Alone Forms: My [facility], Smoking Cessation, Suicide Prevention Resources Medications and DC Order Prescriptions: New magnesium oxide 400 mg (241.3 mg magnesium) Tablet 400 mg PO BID 30 Days Qty: 60 RF: 0 amoxicillin-pot clavulanate [Augmentin] 875-125 mg Tablet 1 tab PO BIDM 10 Days Qty: 20 RF: 0 nicotine 7 mg/24 hr Patch 24 Hour 14 mg transdermal QAM 30 Days Qty: 30 RF: 0 Lactinex 1 million cell tablet,chewable 1 tab PO BID Qty: 30 RF: 0 Continued quetiapine 200 mg Tablet 200 mg PO HS RF: 0 Discharge Orders: Discharge Order (Routine); Ordered 07/03/19 Ordered By: Vikash Jimenez Admission Data Admit Date/Time: 06/22/19 17:15 Attending Provider: Vikash Jimenez Admit Provider: Vikash Jimenez Primary Care Provider: Kenneth Agrawal Other Providers: Vikash Jimenez ; Herberth Benedict ; Rosalia Claudio ; Chris Gamez ; Percy Ribeiro ; Raghavendra Reed ; Carrie Bucio ; Osvaldo Street ; Zaira Portillo ; Caryn Vieira ; Dotty Rosario ; Hattie Thomas ; Frankie Max I. ; Jen Sinha ; Cesilia Pruitt ; Deja Shafer ; Curtis Youngblood ; Jennifer Edwards ; Vandana Witt ; [facility] Other Interventions: Discharge Summary Assessment (RN) Last Done: 07/03/19 16:27
== END 2019-07-03 18:12 | disposition home health service (06) | DRG 603 ==
LOC: ED 12:32 → 2S 17:15 → SUATTDRO 17:15 → 2S 17:40 → 4W 06-24 09:58

== ENCOUNTER 2019-10-23 13:47 | Inpatient (IN) ==
[2019-10-23] MEDS ORDERED: MoRPHine SULFATE 4 MG/ML 1 ML CARP\\VIAL IV STA (15:13)
[2019-10-23] MEDS ORDERED: SODIUM CHLORIDE 0.9% 1000ML 1,000 ML IV SCH (15:15)
[2019-10-23 15:22] LABS: Basophils # (auto) 0.02 K/uL (0-0.2); Basophils % (auto) 0.1 %; Eosinophils # (auto) 0.18 K/uL (0-0.5); Hematocrit (blood only) 33.6 % (42-52); Immature Granulocytes # (auto) 0.05 K/uL (0.00-0.02); Immature Granulocytes % (auto) 0.3 %; Lymphocytes # (auto) 3.05 K/uL (1.2-3.4); Lymphocytes % (auto) 16.9 %; Mean Corpuscular Hemoglobin 26.4 pg (25-34); Mean Corpuscular Hgb Conc 32.7 g/dL (32-36); Mean Corpuscular Volume 80.8 fL (80-100); Mean Platelet Volume 8.5 fL (7.4-10.4); Neutrophils # (auto) 13.83 K/uL (1.4-6.5); Neutrophils % (auto) 76.7 %; Platelet Count 693 K/uL (130-400); Red Blood Count 4.16 M/uL (4.7-6.1); White Blood Count 18.03 K/uL (4.8-10.8)
--- NOTE | 2019-10-23 15:26 | Emergency Department Note ---
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 He notes that he had surgery for these in the past about 10 months ago, and also was admitted about 4 months ago but did not have surgery, just IV antibiotics. He states that he normally has a small amount of drainage from the area every day, but about 4 days ago they seem to stop draining and then the area got swollen and painful. He states that it has started to drain again today, but it is more foul-smelling and sticky in the large amount of drainage compared to his usual. He states the area is very painful and he is having trouble sitting down or walking, the pain is constant, and he currently rates it an 8/10. He denies any fevers or chills, nausea or loss of appetite. He does feel that he may be somewhat dehydrated. He only had a few sips of soda this morning, he has otherwise not eaten or drank anything since last night. He denies any abdominal pain. He denies any diarrhea, constipation, blood in the stool, or painful bowel movements. He denies any uri nary symptoms. REVIEW OF SYSTEMS: A complete 10 point review of systems was reviewed with the patient with pertinent positives and negatives as per history of present illness. All else were negative. PAST MEDICAL HISTORY: Paranoid schizophrenia, depression, gluteal abscess/cellulitis SOCIAL HISTORY: Lives at home, he is a current everyday smoker ALLERGIES: Reviewed in chart and with the patient PHYSICAL EXAM: CONSTITUTIONAL: Pleasant and cooperative. Poor general hygiene and disheveled a ppearing. Nontoxic-appearing and in no acute distress. Moderately dehydrated, but otherwise well appearing and well nourished. HEENT: Normocephalic, atraumatic. PERRL, EOMI. Pharynx normal. Dry mucous membranes. NECK: Supple, full active range of motion without discomfort. RESPIRATORY: Clear to auscultation bilaterally with no wheezing, crackles, rhonchi or stridor. Equal expansion bilaterally. CARDIOVASCULAR: Regular rate and rhythm with no murmurs, rubs or gallops. Normal peripheral perfusion. No edema. GASTROINTESTINAL: Soft, nontender, nondistended. No palpable masses or HSM. Bowel sounds present in all quadrants. No CVA tenderness bilaterally. MUSCULOSKELETAL: Full range of motion of all joints without discomfort. INTEGUMENTARY: The bilateral buttock areas are diffusely indurated with large areas of fluctuance, exquisitely tender to palpation, with purulent discharge noted. Warm to palpation. NEUROLOGIC: Alert and oriented X 4 with normal affect. Normal strength and sens ation in all 4 extremities. Normal speech. Normal gait observed. ED COURSE AND MEDICAL DECISION MAKING: CC: Patient presenting with complaint of perirectal/gluteal abscess DIFFERENTIAL DIAGNOSIS: Includes, but not limited to abscess, cellulitis, perirectal/perianal abscess, intra-abdominal infection, sepsis/bacteremia, MRSA infection, among others. INTERPRETATION OF LABS: Leukocytosis with left shift, mild anemia, elevated platelet count, no significant electrolyte abnormalities, normal renal function, normal liver enzymes and lipase. Lactate within normal limits. Mildly elevated coagulation factors. UA negative. IMAGING: CT pelvis w/IV con only CLINICAL HISTORY: bilateral pilonidal cysts COMPARISON STUDY: 06/22/2019 FINDINGS: The patient was scanned in a dynamic helical fashion during intravenous administration of 93 cc of Optiray 320. The appendix is visualized and appears normal. There are multiple fluid-filled bowel loops with scattered air-fluid levels. There is progressive bilateral inguinal lymphadenopathy. While this may be reactive, a lymphoproliferative disorder cannot be excluded and clinical correlation in this regard is advocated. There is soft tissue thickening involving the skin of the gluteal region. There are subtle hypodensities within the soft tissue raising the possibility of developing phlegmon/abscesses. Be difficult to exclude a perianal fistula. This would be better assessed with an MRI scan. No skeletal destructive lesions are visualized. IMPRESSION: 1. Extensive soft tissue thickening/inflammatory change involving the gluteal soft tissues 2. Multiple subtle hypodensities within the abnormal soft tissue thickening possibly representing developing abscesses/phlegmon 3.It would be difficult to to exclude a perianal fistula. This would be better assessed with MRI scanning 4. Normal appendix 5. Slight progression in the previously described bilateral inguinal lymphadenopathy. MEDICATION RECONCILIATION: I attest that I have personally reviewed the patient's current medication list. INITIAL VITAL SIGNS REVIEW: I reviewed the patient's initial vital signs and interpret them as follows: T: Afebrile; BP: Normotensive; HR: Tachycardic; RR: Within normal limits; Pulse Ox: Within normal limits on room air. Blood pressure screening: The patient was found to have normal blood pressure on screening and does not require follow-up for repeat blood pressure check. MDM SUMMARY: Patient was evaluated at bedside, history and physical exam performed. Patient is alert and oriented, in no acute distress, resting calmly in stretcher. He is nontoxic-appearing and afebrile, but does appear to be uncomfortable from the pain. He appears moderately dehydrated. There is diffuse induration and fluctuance of the bilateral buttock and perirectal area, warm to the touch, exquisitely tender to palpation, with purulent discharge noted. No tenderness to palpation throughout the abdomen. Cardiac monitoring: An order was placed for continuous cardiac monitoring. The monitor shows a rate of 91 bpm with normal sinus rhythm. Orders were placed at bedside for labs, lactate and blood cultures x2, UA, IV fluid bolus for hydration, IV morphine for pain, CT pelvis with IV contrast to evaluate for deeper extension of gluteal abscess. Patient discussed with Dr. Sutherland, who agrees with my assessment, plan, and disposition. Labs and imaging reviewed as above, labs notable for a leukocytosis with leftward shift. Lactate is within normal limits. Blood cultures pending. UA negative. CT imaging reviewed, noting extensive soft tissue inflammatory changes consistent with cellulitis with possible multiple developing abscess/phlegmon, but no large drainable area identified. I spoke on the phone with Korey Grier PA-C with general surgery, who did not feel the patient warranted any urgent surgical intervention and recommended admitting to the medicine service with IV antibiotics, he recommended IV Zosyn. He did not want a wound culture at this time. I spoke on the phone with Dr. Brady, hospitalist, who agrees to evaluate the patient for admission. Patient reassessed multiple times throughout ED stay, he has remained hemodynamically stable and afebrile, and his pain is somewhat improved with the morphine. He was updated on all results and plan for admission, he verbalized understanding of the plan and was agreeable. Patient was stable at time of admission. The chart was completed utilizing [employer] voice recognition software. Grammatical errors, random word insertions, pronoun errors, and incomplete sentences are an occasional consequence of this system due to software limitations, ambient noise, and hardware issues. Any formal questions or concerns about the content, text, or information contained within the body of this dictation should be directly addressed to the nurse practitioner for c larification. Past Med/Surg History Social History Preferred Language: Swiss Communication Ability: Effective Hook Puller Required: No Beliefs That Will Affect Care: None marital status: Single Current Living Situation: Family Current Living Situation Comment: pt reports currently living with his parents current occupational status: disabled Other Information That Helps Us Care for You: No Feels Safe at Home: Yes Safety Concerns: Feels Safe At This Time Smoking Status: Current every day smoker Tobacco Type: cigarettes ; packs per day: 0.5 ; Cigarettes Per Day: 10 ; Do You Dip or Chew Tobacco: No ; Second Hand Exposure: Yes ; Hx Alcohol Use: No Hx Substance Use: No during the past year weight has: remained stable Allergies Allergies Allergy/AdvReac Type Severity Reaction Status Date / Time Penicillins Allergy Severe Rash Verified 10/23/19 16:15 Home Meds Home Medications Medication Instructions Recorded Confirmed hydroxyzine pamoate [Vistaril] 50 mg PO UD PRN 10/23/19 10/23/19 paliperidone palmitate [Invega 0 mg IM MO 10/23/19 10/23/19 Sustenna] Results & Data (ED) Vital Signs Vital Signs - 24 hr 10/23/19 14:06 10/23/19 14:51 10/23/19 16:38 Temperature 37.3 C Temperature Source Oral Pulse Rate 135 H Pulse Rate [Apical] 97 H 84 Respiratory Rate 20 18 Blood Pressure 104/72 Blood Pressure [Left Arm] 105/55 L Blood Pressure Mean 82 Blood Pressure Mean [Left Arm] 71 Pulse Oximetry 100 98 Oxygen Delivery Method Room Air Room Air Sepsis Recent Fever Within 48 Hours No Sepsis New/Unexplained Change in Mental Status No Sepsis Action Taken by Nursing No Action Required Laboratory Data Result diagrams: 10/23/19 14:40 10/23/19 14:40 Lab Results 10/23/19 10/23/19 10/23/19 Range/Units 14:40 14:40 14:40 WBC 18.03 H (4.8-10.8) K/uL RBC 4.16 L (4.7-6.1) M/uL Hgb 11.0 L (14.0-18.0) g/dL POC Hgb (14.0-18.0) g/dl Hct 33.6 L (42-52) % POC Hct (42-52) % MCV 80.8 (80-100) fL MCH 26.4 (25-34) pg MCHC 32.7 (32-36) g/dL RDW Std Deviation 41.0 (36.4-46.3) fL RDW Coeff of Fausto 14.0 (11.5-14.5) % Plt Count 693 H (130-400) K/uL MPV 8.5 (7.4-10.4) fL Immature Gran % (Auto) 0.3 % Neut % (Auto) 76.7 % Lymph % (Auto) 16.9 % [place] % (Auto) 5.0 % Eos % (Auto) 1.0 % Baso % (Auto) 0.1 % Immature Gran # (Auto) 0.05 H (0.00-0.02) K/uL Neut # (Auto) 13.83 H (1.4-6.5) K/uL Lymph # (Auto) 3.05 (1.2-3.4) K/uL [place] # (Auto) 0.90 H (0.11-0.59) K/uL Eos # (Auto) 0.18 (0-0.5) K/uL Baso # (Auto) 0.02 (0-0.2) K/uL PT 12.1 H (9.0-12.0) Seconds INR 1.2 H (0.9-1.1) APTT 36.5 H (21.0-31.0) Seconds PTT Ratio 1.3 POC Sodium (135-144) mmol/L Sodium 135 L (136-145) mmol/L POC Potassium (3.3-5.0) mmol/L Potassium 3.4 L (3.5-5.1) mmol/L POC Chloride (101-112) mmol/L Chloride 102 (98-107) mmol/L Carbon Dioxide 29 (21-32) mmol/L POC Total CO2 (24-31) mmol/L Anion Gap 4.0 (3-11) POC Anion Gap (16-25) mmol/L POC BUN (7-18) mg/dl BUN 7 (7-18) mg/dl Creatinine 0.94 (0.6-1.4) mg/dl POC Creatinine (0.6-1.3) mg/dl Est Cr Clr Drug Dosing 110.8 ml/min Est GFR ( Amer) 117.1 Est GFR (Non-Af Amer) 101.0 BUN/Creatinine Ratio 6.9 L (10-20) Glucose 90 (70-99) mg/dl POC Glucose (other) (70-99) mg/dl Lactate (0.4-2.0) mmol/L Calcium 9.1 (8.5-10.1) mg/dl POC Ioniz Calcium Marian[place] (1.12-1.32) mmol/l Total Bilirubin 0.2 (0.2-1) mg/dl AST 6 L (15-37) U/L ALT 10 L (12-78) U/L Alkaline Phosphatase 86 (45-117) U/L Total Protein 8.6 H (6.4-8.2) gm/dl Albumin 3.0 L (3.4-5.0) gm/dl Globulin 5.6 H (2.5-4.0) gm/dl Albumin/Globulin Ratio 0.5 L (0.9-2) Lipase 42 L (73-393) U/L Urine Color Urine Appearance (Clear) Urine pH (4.5-7.5) Ur Specific [place] (1.000-1.030) Urine Protein (Negative) Urine Glucose (UA) (Negative) Urine Ketones (Negative) Urine Blood (Negative) Urine Nitrite (Negative) Urine Bilirubin (Negative) Urine Urobilinogen (Negative) Ur Leukocyte Esterase (Negative) 10/23/19 10/23/19 10/23/19 Range/Units 15:31 15:35 16:37 WBC (4.8-10.8) K/uL RBC (4.7-6.1) M/uL Hgb (14.0-18.0) g/dL POC Hgb 11.9 L (14.0-18.0) g/dl Hct (42-52) % POC Hct 35 L (42-52) % MCV (80-100) fL MCH (25-34) pg MCHC (32-36) g/dL RDW Std Deviation (36.4-46.3) fL RDW Coeff of Fausto (11.5-14.5) % Plt Count (130-400) K/uL MPV (7.4-10.4) fL Immature Gran % (Auto) % Neut % (Auto) % Lymph % (Auto) % [place] % (Auto) % Eos % (Auto) % Baso % (Auto) % Immature Gran # (Auto) (0.00-0.02) K/uL Neut # (Auto) (1.4-6.5) K/uL Lymph # (Auto) (1.2-3.4) K/uL [place] # (Auto) (0.11-0.59) K/uL Eos # (Auto) (0-0.5) K/uL Baso # (Auto) (0-0.2) K/uL PT (9.0-12.0) Seconds INR (0.9-1.1) APTT (21.0-31.0) Seconds PTT Ratio POC Sodium 138 (135-144) mmol/L Sodium (136-145) mmol/L POC Potassium 3.5 (3.3-5.0) mmol/L Potassium (3.5-5.1) mmol/L POC Chloride 100 L (101-112) mmol/L Chloride (98-107) mmol/L Carbon Dioxide (21-32) mmol/L POC Total CO2 25 (24-31) mmol/L Anion Gap (3-11) POC Anion Gap 18.0 (16-25) mmol/L POC BUN 5 L (7-18) mg/dl BUN (7-18) mg/dl Creatinine (0.6-1.4) mg/dl POC Creatinine 0.8 (0.6-1.3) mg/dl Est Cr Clr Drug Dosing ml/min Est GFR ( Amer) Est GFR (Non-Af Amer) BUN/Creatinine Ratio (10-20) Glucose (70-99) mg/dl POC Glucose (other) 94 (70-99) mg/dl Lactate 0.9 (0.4-2.0) mmol/L Calcium (8.5-10.1) mg/dl POC Ioniz Calcium [place] 1.13 (1.12-1.32) mmol/l Total Bilirubin (0.2-1) mg/dl AST (15-37) U/L ALT (12-78) U/L Alkaline Phosphatase (45-117) U/L Total Protein (6.4-8.2) gm/dl Albumin (3.4-5.0) gm/dl Globulin (2.5-4.0) gm/dl Albumin/Globulin Ratio (0.9-2) Lipase (73-393) U/L Urine Color Yellow Urine Appearance Clear (Clear) Urine pH 6.5 (4.5-7.5) Ur Specific [place] 1.009 (1.000-1.030) Urine Protein Negative (Negative) Urine Glucose (UA) Negative (Negative) Urine Ketones Negative (Negative) Urine Blood Negative (Negative) Urine Nitrite Negative (Negative) Urine Bilirubin Negative (Negative) Urine Urobilinogen Negative (Negative) Ur Leukocyte Esterase Negative (Negative) Administered Medications Acetaminophen (Tylenol) 325 mg PO Q6H PRN PRN Reason: Pain or Fever Stop: 11/22/19 17:59 Last Admin: 10/23/19 21:54 Dose: 325 mg Documented by: [id number] Ciprofloxacin (Cipro) 400 mg in 200 mls @ 100 mls/hr IV Q12H [facility]; Protocol Stop: 10/30/19 20:59 Last Admin: 10/23/19 22:38 Dose: 100 mls/hr Documented by: [id number] Metronidazole (Flagyl) 500 mg in 100 mls @ 100 mls/hr IV Q8H [facility] Stop: 10/30/19 20:59 Last Admin: 10/23/19 22:38 Dose: 100 mls/hr Documented by: [id number] Sodium Chloride (Nss 1000ml) 1,000 mls @ 125 mls/hr IV .Q8H [facility] Stop: 11/22/19 22:14 Last Admin: 10/23/19 22:38 Dose: 125 mls/hr Documented by: [id number] Ioversol (Optiray 320 100ml) 93 ml IV ONCE PRN PRN Reason: Interaction Checking Stop: 10/27/19 16:22 Last Admin: 10/23/19 16:23 Dose: 93 ml Documented by: [id number] Oxycodone HCl (Roxicodone Immediate Rel) 5 mg PO Q6H PRN PRN Reason: Pain Stop: 11/06/19 21:07 Last Admin: 06/02/20 21:55 Dose: 5 mg Documented by: [id number] Discontinued Medications Sodium Chloride (Nss 1000ml) 1,000 mls @ 999 mls/hr IV .Q1H1M [facility] Stop: 10/23/19 16:15 Last Infusion: 10/23/19 18:58 Dose: 0 mls/hr Documented by: [id number] Admin: 10/23/19 15:36 Dose: 999 mls/hr Documented by: [id number] Piperacillin Sod/Tazobactam Sod (Zosyn) 4.5 gm in 120 mls @ 240 mls/hr IV NOW ONE Stop: 10/23/19 17:49 Last Admin: 10/23/19 17:55 Dose: Not Given Documented by: [id number] Sodium Chloride (Nss) 500 mls @ 500 mls/hr IV .Q1H [facility] Stop: 10/23/19 22:14 Last Infusion: 10/23/19 23:23 Dose: 0 mls/hr Documented by: [id number] Admin: 10/23/19 21:30 Dose: 500 mls/hr Documented by: [id number] Morphine Sulfate (Morphine Sulfate) 4 mg IV NOW STA Stop: 10/23/19 15:14 Last Admin: 10/23/19 15:36 Dose: 4 mg Documented by: [id number] Discharge Plan Visit Data *Final* Discharge Date/Time: 10/23/19 19:31 Chief Complaint: Illness Stated Complaint: ILLNESS ED Provider: Samuel Sutherland ED Midlevel Provider: Mikala Avila Discharge Problem: Cellulitis, gluteal, Hidradenitis suppurativa, Leukocytosis Patient Disposition: Admitted As Inpatient Discharge Instructions Interventions: ED Discharge Assessment Last Done: 10/23/19 19:31 Discharge Problem: Leukocytosis Qualifiers: Leukocytosis type: bandemia Qualified Code(s): D72.825 - Bandemia
[2019-10-23 15:29] LABS: INR 1.2 (0.9-1.1); Partial Thromboplastin Ratio 1.3; Partial Thromboplastin Time 36.5 Seconds (21.0-31.0); Prothrombin Time 12.1 Seconds (9.0-12.0)
[2019-10-23 15:31] LABS: BUN Creatinine Ratio 6.9 (10-20); Calcium 9.1 mg/dl (8.5-10.1); Creatinine Clr Calc Pharmacy 110.8 ml/min; Est GFR (African American) 117.1; Potassium 3.4 mmol/L (3.5-5.1)
[2019-10-23 15:34] LABS: Albumin Globulin Ratio 0.5 (0.9-2); Bilirubin,Total 0.2 mg/dl (0.2-1); Globulin 5.6 gm/dl (2.5-4.0); Total Protein 8.6 gm/dl (6.4-8.2)
[2019-10-23 15:53] LABS: iSTAT Creatinine 0.8 mg/dl (0.6-1.3); iSTAT Hemoglobin 11.9 g/dl (14.0-18.0); iSTAT Ionized Calcium 1.13 mmol/l (1.12-1.32); iSTAT Potassium 3.5 mmol/L (3.3-5.0)
[2019-10-23] MEDS ORDERED: IOVERSOL 100ml IV PRN (16:23)
[2019-10-23 16:43] LABS: Appearance Urine Clear (Clear); Bilirubin Urine Negative (Negative); Blood Urine Negative (Negative); Color Urine Yellow; Glucose Urine UA Negative (Negative); Ketones Urine Negative (Negative); Leukocyte Esterase Urine Negative (Negative); Nitrite Urine Negative (Negative); Protein Urine Negative (Negative); Specific Gravity Urine 1.009 (1.000-1.030); Urobilinogen Urine Negative (Negative); pH Urine 6.5 (4.5-7.5)
--- NOTE | 2019-10-23 16:48 | CT Scan Report ---
CT pelvis w/IV con only CLINICAL HISTORY: bilateral pilonidal cysts COMPARISON STUDY: 06/22/2019 FINDINGS: The patient was scanned in a dynamic helical fashion during intravenous administration of 9 3 cc of Optiray 320. The appendix is visualized and appears normal. There are multiple fluid-filled bowel loops with scattered air-fluid levels. There is progressive bilateral inguinal lymphadenopathy. While this may be reactive, a lymphoprolifer ative disorder cannot be excluded and clinical correlation in this regard is advocated. There is soft tissue thickening involving the skin of the gluteal region. There are subtle hypodensit ies within the soft tissue raising the possibility of developing phlegmon/abscesses. Be difficult to exclude a perianal fistula. This would be better assessed with an MRI scan. No skeletal destructive lesions are visualized. IMPRESSION: 1. Extensive soft tissue thickening/inflammatory change involving the gluteal soft tissues 2. Multiple subtle hypodensities within the abnormal soft tissue thickening possibly representing dev eloping abscesses/phlegmon 3.It would be difficult to to exclude a perianal fistula. This would be better assessed with MRI scan celia 4. Normal appendix 5. Slight progression in the previously described bilateral inguinal lymphadenopathy. ACT 112: Negative or not required by law. Electronically signed by: Guevara Billings M.D. 10/23/2019 4:46 PM
[2019-10-23] MEDS ORDERED: PIPERACILL/TAZOBAC CONSULT ACTIVE PRN (17:20)
[2019-10-23] MEDS ORDERED: PIPERACILLIN/TAZOBACTAM 4.5 GM/120 ML BAG IV ONE (17:20)
--- NOTE | 2019-10-23 18:00 | History & Physical Report ---
Date of Service October 23, 2019 Assessment & Plan (1) Hidradenitis suppurativa: possible abscess, possible perianal fistula -This is a patient with history of hidradenitis suppurativa who has had problems with this chronically particularly of perirectal area. Patient with 4 days of rectal pain. He denies fevers at home or blood in the stools. No abdominal pain. no vomiting. no chest pain, no shortness of breath, no changes in urination, no dizziness, no headache. He presents to the emergency room on 10/23/2019 and found to have elevated WBC of 18,000. -CT abdomen: Extensive soft tissue thickening/inflammatory change involving the gluteal soft tissues. Multiple subtle hypodensities within the abnormal soft tissue thickening possibly representing developing abscesses/phlegmon. It would be difficult to to exclude a perianal fistula (This would be better assessed with MRI scanning).Normal appendix. Slight progression in the previously described bilateral inguinal lymphadenopathy. -ED provider reports she spoke with general surgery service but told no acute interventions at this time. hospitalist service will request general surgery to follow the patient when admitted in case any drainage needed which requires surgical incision -Patient in no acute distress on exam. He was ordered for Zosyn by ED provider, but because of penicillin allergies, patient concerned of allergic reactions such as leg rash and this antibiotic order was stopped by hospitalist and was never given. In addition on exam, by hospitalist that patient has draining from right buttock fluid common in appearance to pus from hidradenitis. Patient reports that this drainage started during his car ride to hospital -hospitalist requested surface wound culture of buttock drainage -hospitalist request nurse to help put dressing over the buttock drainage, the concern is if patient defecates that he will seed gut bacteria into the skin. wound care q shift, wound care nurse. -follow admission blood cultures -hospitalist to start combination of antibiotics as clindamycin 600 mg IV q8 hours for MRSA coverage (can be stopped if wound culture negative for MRSA), ciprofloxacin 400 mg q12 hours for gram positive/gram negative coverage, metronidazole for anarobe coverage (2) Paranoid schizophrenia: mild episode of recurrent major depression as per outpatient problem list -no acute behavioral issues, patient reports he makes medical decisions on his own, he allows hospitalist to update his parents Kalin/Fe [phone] (admiting hospitalist updated Kalin) -outpatient follows with Benita Sanders for monthly 117 mg INVEGA SUSTENNA, last dose was first week of September 2019 as per patient -patient denies other medications besides Vistaril for sleep Possible Prediabetes -check HbA1c DVT prophylaxis: SCDs Full Code History of Present Illness -This is a patient with history of hidradenitis suppurativa who has had problems with this chronically particularly of perirectal area. Patient with 4 days of rectal pain. He denies fevers at home or blood in the stools. No abdominal pain. no vomiting. no chest pain, no shortness of breath, no changes in urination, no dizziness, no headache. He presents to the emergency room on 10/23/2019 and found to have elevated WBC of 18,000. -CT abdomen: Extensive soft tissue thickening/inflammatory change involving the gluteal soft tissues. Multiple subtle hypodensities within the abnormal soft tissue thickening possibly representing developing abscesses/phlegmon. It would be difficult to to exclude a perianal fistula (This would be better assessed with MRI scanning).Normal appendix. Slight progression in the previously described bilateral inguinal lymphadenopathy. -ED provider reports she spoke with general surgery service but told no acute interventions at this time. hospitalist service will request general surgery to follow the patient when admitted in case any drainage needed which requires dimitris gical incision -Patient in no acute distress on exam. He was ordered for Zosyn by ED provider, but because of penicillin allergies, patient concerned of allergic reactions such as leg rash and this antibiotic order was stopped by hospitalist and was never given. In addition on exam, by hospitalist that patient has draining from right buttock fluid common in appearance to pus from hidradenitis. Patient reports that this drainage started during his car ride to hospital Family History: patient reports no health problems that run in the family Primary Care Provider: Kenneth Agrawal DO Allergies Allergy/AdvReac Type Severity Reaction Status Date / Time Penicillins Allergy Severe Rash Verified 10/23/19 16:15 Home Medications Home Medications Medication Instructions Recorded Confirmed Type hydroxyzine pamoate [Vistaril] 50 mg PO UD PRN 10/23/19 10/23/19 History paliperidone palmitate [Invega 0 mg IM MO 10/23/19 10/23/19 History Sustenna] Past Med/Surg History Social History Preferred Language: Micronesian Communication Ability: Effective Sociology Professor Required: No Beliefs That Will Affect Care: None marital status: Single Current Living Situation: Boarding Home Current Living Situation Comment: roommates, lives in half-way current occupational status: disabled Feels Safe at Home: Yes Smoking Status: Current every day smoker Tobacco Type: cigarettes ; packs per day: 0.5 ; Second Hand Exposure: No ; Hx Alcohol Use: No Hx Substance Use: No during the past year weight has: remained stable Review of Systems Review of Systems: All systems reviewed & are unremarkable except as noted in Subjective Physical Exam Constitutional: WD/WN, vitals as above Eyes: PERRL, conjunctivae normal, anicteric sclerae EOM intact bilaterally ENMT: external ear and nose normal, oropharynx normal Neck: trachea midline, no thyromegaly Respiratory: normal respiratory effort, lungs clear to auscultation Cardiovascular: RRR, no murmur, no edema Gastrointestinal (Abdomen): normal bowel sounds, soft, nontender, no hepatosplenomegaly Musculoskeletal: Head/Neck/Chest: normocephalic Skin: suppurative hidradenitis of right buttock that is draining Neurologic: PERRL, EOMI, accommodation nl, no face palsy, no dysarthria CN's II-XI intact bilaterally Psychiatric: A+Ox3, euthymic affect Results & Data Results & Data ([facility]) Vital Signs (Past 12 Hours) Vital Signs Temp Pulse Pulse Resp BP BP Pulse Ox 10/23/19 16:38 84 18 105/55 L 98 10/23/19 14:51 97 H 10/23/19 14:06 37.3 C 135 H 20 104/72 100
[2019-10-23] MEDS ORDERED: SODIUM CHLORIDE 0.9% 500 ML IV SCH (21:15)
[2019-10-23] MEDS: ACETAMINOPHEN 325 MG TAB PO PRN (21:54)
[2019-10-23] MEDS: OXYCODONE HCL IR 5 MG TAB (IMMEDIATE RELEASE) PO PRN (21:55)
[2019-10-23] MEDS: SODIUM CHLORIDE 0.9% 1000ML 1,000 ML IV SCH (22:38)
[2019-10-23] MEDS: metroNIDAZOLE 500 MG/100 ML BAG IV SCH (22:38)
[2019-10-23] MEDS: CIPROFLOXACIN / D5W 400 MG/200 ML BAG IV SCH (22:38)
[2019-10-24] MEDS: CLINDAMYCIN 600 MG in DEXTROSE 5% 50 ML IV SCH ×3 (00:21→15:52)
[2019-10-24] MEDS: metroNIDAZOLE 500 MG/100 ML BAG IV SCH ×3 (05:41→21:09)
[2019-10-24] MEDS: OXYCODONE HCL IR 5 MG TAB (IMMEDIATE RELEASE) PO PRN ×3 (05:43→23:19)
[2019-10-24] MEDS: SODIUM CHLORIDE 0.9% 1000ML 1,000 ML IV SCH ×2 (05:46→14:07)
[2019-10-24 06:10] LABS: Basophils # (auto) 0.02 K/uL (0-0.2); Basophils % (auto) 0.2 %; Eosinophils # (auto) 0.24 K/uL (0-0.5); Hematocrit (blood only) 31.8 % (42-52); Hemoglobin 10.1 g/dL (14.0-18.0); Immature Granulocytes # (auto) 0.03 K/uL (0.00-0.02); Immature Granulocytes % (auto) 0.3 %; Lymphocytes # (auto) 3.79 K/uL (1.2-3.4); Lymphocytes % (auto) 31.8 %; Mean Corpuscular Hemoglobin 26.3 pg (25-34); Mean Corpuscular Hgb Conc 31.8 g/dL (32-36); Mean Corpuscular Volume 82.8 fL (80-100); Mean Platelet Volume 8.3 fL (7.4-10.4); Monocytes # (auto) 0.89 K/uL (0.11-0.59); Monocytes % (auto) 7.5 %; Neutrophils # (auto) 6.96 K/uL (1.4-6.5); Neutrophils % (auto) 58.2 %; Platelet Count 631 K/uL (130-400); RDW Coefficient of Variation 14.2 % (11.5-14.5); RDW Standard Deviation 43.4 fL (36.4-46.3); Red Blood Count 3.84 M/uL (4.7-6.1); White Blood Count 11.93 K/uL (4.8-10.8)
[2019-10-24 06:35] LABS: Albumin Level 2.6 gm/dl (3.4-5.0); BUN Creatinine Ratio 7.7 (10-20); Calcium 8.4 mg/dl (8.5-10.1); Creatinine Clr Calc Pharmacy 121.1 ml/min; Est GFR (African American) 125.7; Est GFR (Non-African American) 108.5; Potassium 3.8 mmol/L (3.5-5.1)
[2019-10-24 06:37] LABS: Albumin Globulin Ratio 0.5 (0.9-2); Bilirubin,Total 0.2 mg/dl (0.2-1); Globulin 5.2 gm/dl (2.5-4.0); Total Protein 7.8 gm/dl (6.4-8.2)
--- NOTE | 2019-10-24 07:23 | Surgery Consultation ---
Date of Consultation October 24, 2019 Assessment & Plan (1) Hidradenitis suppurativa: Patient with chronic draining sinus tracts of the gluteal area and abscess formation with drainage He has refused surgery in the past And actually even with scheduled surgery he then refuses to go downstairs Obviously because of mental health issues He is somewhat afraid of surgery , He has been seen in the past multiple times by surgery, Infectious disease, And the wound clinic- He is poorly compliant and does not show up for follow-up visits He has been treated multiple times in the hospital with IV antibiotics and improvement Discharged On p.o. antibiotics I believe we should continue with IV antibiotics and wound care, Try sitz baths History of Present Illness Attending Physician: Yves Gleason MD History of Present Illness 39-year-old male With a history of Chronic draining sinus tracts and hidradenitis suppurativa- Involving the gluteal areas and perianal areas There is been concern in the past with perirectal fistula Patient has been admitted multiple times with IV antibiotic treatment , N.p.o. antibiotics He has been seen in the wound clinic, And infectious disease, And placed on chronic antibiotics - Including Omnicef 300 mg BID He has refused surgery Multiple times in the past- And basically told me he is here for IV antibiotics Allergies Allergy/AdvReac Type Severity Reaction Status Date / Time Penicillins Allergy Severe Rash Verified 10/23/19 16:15 Home Medications Home Medications Medication Instructions Recorded Confirmed Type hydroxyzine pamoate [Vistaril] 50 mg PO UD PRN 10/23/19 10/23/19 History paliperidone palmitate [Invega 0 mg IM MO 10/23/19 10/23/19 History Sustenna] Patient History Social History Preferred Language: Ukrainian Communication Ability: Effective Sponge Packer Required: No Beliefs That Will Affect Care: None marital status: Single Current Living Situation: Family Current Living Situation Comment: pt reports currently living with his parents current occupational status: disabled Other Information That Helps Us Care for You: No Feels Safe at Home: Yes Safety Concerns: Feels Safe At This Time Smoking Status: Current every day smoker Tobacco Type: cigarettes ; packs per day: 0.5 ; Cigarettes Per Day: 10 ; Do You Dip or Chew Tobacco: No ; Second Hand Exposure: Yes ; Hx Alcohol Use: No Hx Substance Use: No during the past year weight has: remained stable Review of Systems Review of Systems: All systems reviewed & are unremarkable except as noted in HPI & below Physical Exam Constitutional: no acute distress Eyes: + anicteric sclerae Respiratory: normal respiratory effort; no respiratory distress Cardiovascular: Rate/Rhythm: regular rate Gastrointestinal (Abdomen): Has severe thickening and scar tissue bilaterally in the gluteal areas His left side shows areas of induration and some fluctuance with drainage Has minimal surrounding cellulitis These are chronic draining sinus tracts Skin: no rashes, warm and dry Neurologic: awake Psychiatric: Orientation: alert and cooperative Results & Data Vital Signs (Past 12 Hours) Vital Signs Temp Pulse Pulse Resp BP Pulse Ox 10/24/19 07:02 36.8 C 64 18 103/63 100 10/23/19 23:10 37.0 C 60 16 109/54 L 93 10/23/19 20:00 36.9 C 79 15 96/60 L 99 10/23/19 19:22 76 20 83/51 L 98 I did review his CAT scan PG Care Time/CCT Total # of Minutes Spent Total Time Spent with Patient: Total time spent is greater than 50% in coordination of care (as documented) at patient's floor/unit and/or counseling patient: Coding Level of Care Code 31056 Inpt Consult Level 4 Diagnoses Hidradenitis suppurativa L73.2
[2019-10-24 07:36] LABS: Estimated Average Glucose 128 mg/dl; Hemoglobin A1C 6.1 % (4.5-5.6)
--- NOTE | 2019-10-24 08:16 | Hospitalist Progress Note ---
Date of Service October 24, 2019 Assessment & Plan (1) Hidradenitis suppurativa: possible abscess, possible perianal fistula -This is a patient with history of hidradenitis suppurativa who has had problems with this chronically, particularly of perirectal area. Patient with 4 days of rectal pain. He denies fevers at home or blood in the stools. No abdominal pain. no vomiting. no chest pain, no shortness of breath, no changes in urination, no dizziness, no headache. He presents to the emergency room on 10/23/2019 and found to have elevated WBC of 18,000. -CT abdomen: Extensive soft tissue thickening/inflammatory change involving the gluteal soft tissues. Multiple subtle hypodensities within the abnormal soft tissue thickening possibly representing developing abscesses/phlegmon. It would be difficult to to exclude a perianal fistula (This would be better assessed with MRI scanning).Normal appendix. Slight progression in the previously described bilateral inguinal lymphadenopathy. -ED provider reports she spoke with general surgery service but told no acute interventions at this time. hospitalist service requested general surgery to follow the patient when admitted in case any drainage needed which requires surgical incision -Dr. Valladares, surgery, saw patient earlier this morning 10/24/19, patient declines surgery and wants to continue with IV antibiotics -Patient in no acute distress on admission. He was ordered for Zosyn by ED provider, but because of penicillin allergies, patient concerned of allergic reactions such as leg rash and this antibiotic order was stopped by hospitalist and was never given. In addition on exam, by hospitalist that patient has draining from right buttock fluid common in appearance to pus from hidradenitis. Patient reports that this drainage started during his car ride to hospital -hospitalist requested surface wound culture of buttock drainage -hospitalist request nurse to help put dressing over the buttock drainage, the concern is if patient defecates that he will seed gut bacteria into the skin. wound care q shift, wound care nurse. -Per nursing staff, patient refuses wound care or nursing care -follow admission blood cultures -Admitting physician started combination of antibiotics as clindamycin 600 mg IV q8 hours for MRSA coverage (can be stopped if wound culture negative for MRSA), ciprofloxacin 400 mg q12 hours for gram positive/gram negative coverage, metronidazole for anaerobe coverage , will continue current antibiotics for now (2) Paranoid schizophrenia: mild episode of recurrent major depression as per outpatient problem list -no acute behavioral issues, patient reports he makes medical decisions on his own, he allowed admitting physician to update his parents Kalin/Fe [phone] (admitting hospitalist updated Kalin) -outpatient follows with Benita Sanders for monthly 117 mg INVEGA SUSTENNA, last dose was first week of September 2019 as per patient -patient denies other medications besides Vistaril for sleep -Plan for next injection of Invega Sustenna scheduled for October 28 -Per nursing staff, patient refusing any wound care or nursing care, seen by surgery earlier this morning, patient refused surgery previously and now also only wishes for IV antibiotics -We will consider psychiatry consult Possible Prediabetes -HbA1c 6.1% -will have follow-up as outpatient with PCP DVT prophylaxis: SCDs Full Code Admission and Anticipated Discharge Date Admission Date: October 23, 2019 Subjective Seen by surgery this morning, patient refused surgery multiple times. Blood cell count down to 11.9 from 18,000. Continue wound care, consider sitz bath. Patient is lying in bed, in no acute distress. Denies any fevers, chills, chest pain, shortness of breath, abdominal pain, nausea or vomiting. Says his buttocks pain is somewhat better but still bothering him. Discussed with nursing, that patient has no dressings applied, wet and dirty underwear on, wounds draining. Per nursing staff patient has been refusing any care from them or wound care. Review of Systems Review of Systems: All systems reviewed & are unremarkable except as noted in HPI & below Constitutional: no fever and no chills Respiratory: no cough and no dyspnea Cardiovascular: no chest pain and no palpitations Gastrointestinal: no abdominal pain, no nausea and no vomiting Physical Exam Physical Exam: Constitutional: Middle-aged male, lying in bed, in no acute distress Eyes: PERRL, conjunctivae normal, anicteric sclerae EOM intact bilaterally ENMT: external ear and nose normal, oropharynx normal Neck: trachea midline, no thyromegaly Respiratory: normal respiratory effort, lungs clear to auscultation Cardiovascular: RRR, no murmur, no edema Gastrointestinal (Abdomen): normal bowel sounds, soft, nontender, nondistended Musculoskeletal: Head/Neck/Chest: normocephalic, with extremity spontaneously Skin: suppurative hidradenitis of right buttock that is draining Neurologic: PERRL, EOMI, accommodation nl, no face palsy, no dysarthria CN's II-XI intact bilaterally, moves all extremities spontaneously Psychiatric: A+Ox3, euthymic affect Results & Data Results & Data ([facility]) Vital Signs (Past 12 Hours) Vital Signs Temp Pulse Resp BP Pulse Ox 10/24/19 07:02 36.8 C 64 18 103/63 100 10/23/19 23:10 37.0 C 60 16 109/54 L 93 Laboratory Results 10/24/19 10/24/19 10/24/19 Range/Units 05:38 05:38 05:38 WBC 11.93 H (4.8-10.8) K/uL RBC 3.84 L (4.7-6.1) M/uL Hgb 10.1 L (14.0-18.0) g/dL POC Hgb (14.0-18.0) g/dl Hct 31.8 L (42-52) % POC Hct (42-52) % MCV 82.8 (80-100) fL MCH 26.3 (25-34) pg MCHC 31.8 L (32-36) g/dL RDW Std Deviation 43.4 (36.4-46.3) fL RDW Coeff of Fausto 14.2 (11.5-14.5) % Plt Count 631 H (130-400) K/uL MPV 8.3 (7.4-10.4) fL Immature Gran % (Auto) 0.3 % Neut % (Auto) 58.2 % Lymph % (Auto) 31.8 % [place] % (Auto) 7.5 % Eos % (Auto) 2.0 % Baso % (Auto) 0.2 % Immature Gran # (Auto) 0.03 H (0.00-0.02) K/uL Neut # (Auto) 6.96 H (1.4-6.5) K/uL Lymph # (Auto) 3.79 H (1.2-3.4) K/uL [place] # (Auto) 0.89 H (0.11-0.59) K/uL Eos # (Auto) 0.24 (0-0.5) K/uL Baso # (Auto) 0.02 (0-0.2) K/uL PT (9.0-12.0) Seconds INR (0.9-1.1) APTT (21.0-31.0) Seconds PTT Ratio POC Sodium (135-144) mmol/L Sodium 141 (136-145) mmol/L POC Potassium (3.3-5.0) mmol/L Potassium 3.8 (3.5-5.1) mmol/L POC Chloride (101-112) mmol/L Chloride 108 H (98-107) mmol/L Carbon Dioxide 28 (21-32) mmol/L POC Total CO2 (24-31) mmol/L Anion Gap 5.0 (3-11) POC Anion Gap (16-25) mmol/L POC BUN (7-18) mg/dl BUN 7 (7-18) mg/dl Creatinine 0.86 (0.6-1.4) mg/dl POC Creatinine (0.6-1.3) mg/dl Est Cr Clr Drug Dosing 121.1 ml/min Est GFR ( Amer) 125.7 Est GFR (Non-Af Amer) 108.5 BUN/Creatinine Ratio 7.7 L (10-20) Glucose 80 (70-99) mg/dl POC Glucose (other) (70-99) mg/dl Estimat Average Glucose 128 mg/dl Hemoglobin A1c 6.1 H (4.5-5.6) % Lactate (0.4-2.0) mmol/L Calcium 8.4 L (8.5-10.1) mg/dl POC Ioniz Calcium Marianna (1.12-1.32) mmol/l Total Bilirubin 0.2 (0.2-1) mg/dl AST 7 L (15-37) U/L ALT 10 L (12-78) U/L Alkaline Phosphatase 71 (45-117) U/L Total Protein 7.8 (6.4-8.2) gm/dl Albumin 2.6 L (3.4-5.0) gm/dl Globulin 5.2 H (2.5-4.0) gm/dl Albumin/Globulin Ratio 0.5 L (0.9-2) Lipase (73-393) U/L Urine Color Urine Appearance (Clear) Urine pH (4.5-7.5) Ur Specific [place] (1.000-1.030) Urine Protein (Negative) Urine Glucose (UA) (Negative) Urine Ketones (Negative) Urine Blood (Negative) Urine Nitrite (Negative) Urine Bilirubin (Negative) Urine Urobilinogen (Negative) Ur Leukocyte Esterase (Negative) 10/23/19 10/23/19 10/23/19 Range/Units 16:37 15:35 15:31 WBC (4.8-10.8) K/uL RBC (4.7-6.1) M/uL Hgb (14.0-18.0) g/dL POC Hgb 11.9 L (14.0-18.0) g/dl Hct (42-52) % POC Hct 35 L (42-52) % MCV (80-100) fL MCH (25-34) pg MCHC (32-36) g/dL RDW Std Deviation (36.4-46.3) fL RDW Coeff of Fausto (11.5-14.5) % Plt Count (130-400) K/uL MPV (7.4-10.4) fL Immature Gran % (Auto) % Neut % (Auto) % Lymph % (Auto) % [place] % (Auto) % Eos % (Auto) % Baso % (Auto) % Immature Gran # (Auto) (0.00-0.02) K/uL Neut # (Auto) (1.4-6.5) K/uL Lymph # (Auto) (1.2-3.4) K/uL [place] # (Auto) (0.11-0.59) K/uL Eos # (Auto) (0-0.5) K/uL Baso # (Auto) (0-0.2) K/uL PT (9.0-12.0) Seconds INR (0.9-1.1) APTT (21.0-31.0) Seconds PTT Ratio POC Sodium 138 (135-144) mmol/L Sodium (136-145) mmol/L POC Potassium 3.5 (3.3-5.0) mmol/L Potassium (3.5-5.1) mmol/L POC Chloride 100 L (101-112) mmol/L Chloride (98-107) mmol/L Carbon Dioxide (21-32) mmol/L POC Total CO2 25 (24-31) mmol/L Anion Gap (3-11) POC Anion Gap 18.0 (16-25) mmol/L POC BUN 5 L (7-18) mg/dl BUN (7-18) mg/dl Creatinine (0.6-1.4) mg/dl POC Creatinine 0.8 (0.6-1.3) mg/dl Est Cr Clr Drug Dosing ml/min Est GFR ( Amer) Est GFR (Non-Af Amer) BUN/Creatinine Ratio (10-20) Glucose (70-99) mg/dl POC Glucose (other) 94 (70-99) mg/dl Estimat Average Glucose mg/dl Hemoglobin A1c (4.5-5.6) % Lactate 0.9 (0.4-2.0) mmol/L Calcium (8.5-10.1) mg/dl POC Ioniz Calcium Marian[place] 1.13 (1.12-1.32) mmol/l Total Bilirubin (0.2-1) mg/dl AST (15-37) U/L ALT (12-78) U/L Alkaline Phosphatase (45-117) U/L Total Protein (6.4-8.2) gm/dl Albumin (3.4-5.0) gm/dl Globulin (2.5-4.0) gm/dl Albumin/Globulin Ratio (0.9-2) Lipase (73-393) U/L Urine Color Yellow Urine Appearance Clear (Clear) Urine pH 6.5 (4.5-7.5) Ur Specific [place] 1.009 (1.000-1.030) Urine Protein Negative (Negative) Urine Glucose (UA) Negative (Negative) Urine Ketones Negative (Negative) Urine Blood Negative (Negative) Urine Nitrite Negative (Negative) Urine Bilirubin Negative (Negative) Urine Urobilinogen Negative (Negative) Ur Leukocyte Esterase Negative (Negative) 10/23/19 10/23/19 10/23/19 Range/Units 14:40 14:40 14:40 WBC 18.03 H (4.8-10.8) K/uL RBC 4.16 L (4.7-6.1) M/uL Hgb 11.0 L (14.0-18.0) g/dL POC Hgb (14.0-18.0) g/dl Hct 33.6 L (42-52) % POC Hct (42-52) % MCV 80.8 (80-100) fL MCH 26.4 (25-34) pg MCHC 32.7 (32-36) g/dL RDW Std Deviation 41.0 (36.4-46.3) fL RDW Coeff of Fausto 14.0 (11.5-14.5) % Plt Count 693 H (130-400) K/uL MPV 8.5 (7.4-10.4) fL Immature Gran % (Auto) 0.3 % Neut % (Auto) 76.7 % Lymph % (Auto) 16.9 % [place] % (Auto) 5.0 % Eos % (Auto) 1.0 % Baso % (Auto) 0.1 % Immature Gran # (Auto) 0.05 H (0.00-0.02) K/uL Neut # (Auto) 13.83 H (1.4-6.5) K/uL Lymph # (Auto) 3.05 (1.2-3.4) K/uL [place] # (Auto) 0.90 H (0.11-0.59) K/uL Eos # (Auto) 0.18 (0-0.5) K/uL Baso # (Auto) 0.02 (0-0.2) K/uL PT 12.1 H (9.0-12.0) Seconds INR 1.2 H (0.9-1.1) APTT 36.5 H (21.0-31.0) Seconds PTT Ratio 1.3 POC Sodium (135-144) mmol/L Sodium 135 L (136-145) mmol/L POC Potassium (3.3-5.0) mmol/L Potassium 3.4 L (3.5-5.1) mmol/L POC Chloride (101-112) mmol/L Chloride 102 (98-107) mmol/L Carbon Dioxide 29 (21-32) mmol/L POC Total CO2 (24-31) mmol/L Anion Gap 4.0 (3-11) POC Anion Gap (16-25) mmol/L POC BUN (7-18) mg/dl BUN 7 (7-18) mg/dl Creatinine 0.94 (0.6-1.4) mg/dl POC Creatinine (0.6-1.3) mg/dl Est Cr Clr Drug Dosing 110.8 ml/min Est GFR ( Amer) 117.1 Est GFR (Non-Af Amer) 101.0 BUN/Creatinine Ratio 6.9 L (10-20) Glucose 90 (70-99) mg/dl POC Glucose (other) (70-99) mg/dl Estimat Average Glucose mg/dl Hemoglobin A1c (4.5-5.6) % Lactate (0.4-2.0) mmol/L Calcium 9.1 (8.5-10.1) mg/dl POC Ioniz Calcium Marianna (1.12-1.32) mmol/l Total Bilirubin 0.2 (0.2-1) mg/dl AST 6 L (15-37) U/L ALT 10 L (12-78) U/L Alkaline Phosphatase 86 (45-117) U/L Total Protein 8.6 H (6.4-8.2) gm/dl Albumin 3.0 L (3.4-5.0) gm/dl Globulin 5.6 H (2.5-4.0) gm/dl Albumin/Globulin Ratio 0.5 L (0.9-2) Lipase 42 L (73-393) U/L Urine Color Urine Appearance (Clear) Urine pH (4.5-7.5) Ur Specific [place] (1.000-1.030) Urine Protein (Negative) Urine Glucose (UA) (Negative) Urine Ketones (Negative) Urine Blood (Negative) Urine Nitrite (Negative) Urine Bilirubin (Negative) Urine Urobilinogen (Negative) Ur Leukocyte Esterase (Negative) Medications Administered Current Inpatient Medications Acetaminophen (Tylenol) 325 mg PO Q6H PRN PRN Reason: Pain or Fever Stop: 11/22/19 17:59 Last Admin: 10/23/19 21:54 Dose: 325 mg Documented by: Ciprofloxacin (Cipro) 400 mg in 200 mls @ 100 mls/hr IV Q12H CORNELIUS; Protocol Stop: 10/30/19 20:59 Last Infusion: 10/24/19 00:40 Dose: Infused Documented by: Metronidazole (Flagyl) 500 mg in 100 mls @ 100 mls/hr IV Q8H CORNELIUS Stop: 10/30/19 20:59 Last Infusion: 10/24/19 06:43 Dose: Infused Documented by: Clindamycin Phosphate 600 mg/ (Dextrose) 54 mls @ 100 mls/hr IV Q8H CORNELIUS Stop: 10/31/19 00:00 Last Infusion: 10/24/19 01:11 Dose: Infused Documented by: Sodium Chloride (Nss 1000ml) 1,000 mls @ 125 mls/hr IV .Q8H CORNELIUS Stop: 11/22/19 22:14 Last Admin: 10/24/19 05:46 Dose: 125 mls/hr Documented by: Ioversol (Optiray 320 100ml) 93 ml IV ONCE PRN PRN Reason: Interaction Checking Stop: 10/27/19 16:22 Last Admin: 10/23/19 16:23 Dose: 93 ml Documented by: Oxycodone HCl (Roxicodone Immediate Rel) 5 mg PO Q6H PRN PRN Reason: Pain Stop: 11/06/19 21:07 Last Admin: 10/24/19 05:43 Dose: 5 mg Documented by:
[2019-10-24] MEDS: CIPROFLOXACIN / D5W 400 MG/200 ML BAG IV SCH ×2 (10:30→21:12)
[2019-10-25] MEDS: CLINDAMYCIN 600 MG in DEXTROSE 5% 50 ML IV SCH ×4 (00:05→23:28)
[2019-10-25] MEDS: SODIUM CHLORIDE 0.9% 1000ML 1,000 ML IV SCH ×3 (00:05→20:46)
[2019-10-25] MEDS: metroNIDAZOLE 500 MG/100 ML BAG IV SCH ×3 (04:36→21:07)
--- NOTE | 2019-10-25 06:19 | Surgery Progress Note ---
Date of Service October 25, 2019 Assessment & Plan (1) Hidradenitis suppurativa: Continue wound care No changes from a surgical standpoint No plan for surgical intervention Subjective Feeling a little better Physical Exam Physical Exam: No acute changes Results & Data Vital Signs (Past 12 Hours) Vital Signs Temp Pulse Resp BP Pulse Ox 10/24/19 23:04 37.4 C 65 16 128/73 99 PG Care Time/CCT Total # of Minutes Spent Total Time Spent with Patient: Total time spent is greater than 50% in coordination of care (as documented) at patient's floor/unit and/or counseling patient: Coding Level of Care Code 14213 Inpt Consult Level 2 Diagnoses Hidradenitis suppurativa L73.2
[2019-10-25 06:41] LABS: Hematocrit (blood only) 30.1 % (42-52); Hemoglobin 9.6 g/dL (14.0-18.0); Mean Corpuscular Hemoglobin 25.9 pg (25-34); Mean Corpuscular Hgb Conc 31.9 g/dL (32-36); Mean Corpuscular Volume 81.4 fL (80-100); Mean Platelet Volume 8.2 fL (7.4-10.4); Platelet Count 526 K/uL (130-400); RDW Coefficient of Variation 14.1 % (11.5-14.5); RDW Standard Deviation 42.1 fL (36.4-46.3); White Blood Count 11.82 K/uL (4.8-10.8)
[2019-10-25 07:07] LABS: Calcium 8.1 mg/dl (8.5-10.1); Creatinine Clr Calc Pharmacy 122.5 ml/min; Est GFR (African American) 126.3; Magnesium 1.9 mg/dl (1.8-2.4); Potassium 3.7 mmol/L (3.5-5.1)
[2019-10-25 07:08] LABS: Phosphorus 3.1 mg/dl (2.5-4.9)
--- NOTE | 2019-10-25 07:52 | Hospitalist Progress Note ---
Date of Service October 25, 2019 Assessment & Plan (1) Hidradenitis suppurativa: possible abscess, possible perianal fistula -This is a patient with history of hidradenitis suppurativa who has had problems with this chronically, particularly of perirectal area. Patient with 4 days of rectal pain. He denies fevers at home or blood in the stools. No abdominal pain. no vomiting. no chest pain, no shortness of breath, no changes in urination, no dizziness, no headache. He presents to the emergency room on 10/23/2019 and found to have elevated WBC of 18,000. -CT abdomen: Extensive soft tissue thickening/inflammatory change involving the gluteal soft tissues. Multiple subtle hypodensities within the abnormal soft tissue thickening possibly representing developing abscesses/phlegmon. It would be difficult to to exclude a perianal fistula (This would be better assessed with MRI scanning).Normal appendix. Slight progression in the previously described bilateral inguinal lymphadenopathy. -ED provider reports she spoke with general surgery service but told no acute interventions at this time. hospitalist service requested general surgery to follow the patient when admitted in case any drainage needed which requires surgical incision -Dr. Valladares, surgery, saw patient earlier this morning 10/24/19, patient declines surgery and wants to continue with IV antibiotics -Patient in no acute distress on admission. He was ordered for Zosyn by ED provider, but because of penicillin allergies, patient concerned of allergic reactions such as leg rash and this antibiotic order was stopped by hospitalist and was never given. In addition on exam, by hospitalist that patient has draining from right buttock fluid common in appearance to pus from hidradenitis. Patient reports that this drainage started during his car ride to hospital -hospitalist requested surface wound culture of buttock drainage -hospitalist request nurse to help put dressing over the buttock drainage, the concern is if patient defecates that he will seed gut bacteria into the skin. wound care q shift, wound care nurse. - 10/24/2019 Per nursing staff, patient refuses wound care or nursing care - 10/25/19 Seen by psychiatry today, patient is much more cooperative today, allows nursing staff to do dressing changes/wound care -follow admission blood cultures -Admitting physician started combination of antibiotics as clindamycin 600 mg IV q8 hours for MRSA coverage (can be stopped if wound culture negative for MRSA), ciprofloxacin 400 mg q12 hours for gram positive/gram negative coverage, metronidazole for anaerobe coverage , will continue current antibiotics for now (2) Paranoid schizophrenia: mild episode of recurrent major depression as per outpatient problem list -no acute behavioral issues, patient reports he makes medical decisions on his own, he allowed admitting physician to update his parents Kalin/Fe [phone] (admitting hospitalist updated Kalin) -outpatient follows with Benita Hortonrogelio Sanders for monthly 117 mg INVEGA SUSTENNA, last dose was first week of September 2019 as per patient -patient denies other medications besides Vistaril for sleep -Plan for next injection of Invega Sustenna scheduled for October 28 -Per nursing staff, patient refusing any wound care or nursing care, seen by surgery earlier this morning 10/24/19, patient refused surgery previously and now also only wishes for IV antibiotics -Psychiatry consulted, patient is much more cooperative today 10/25/19, and allows nursing staff to do dressing changes/ wound care Prediabetes -HbA1c 6.1% -will have follow-up as outpatient with PCP DVT prophylaxis: SCDs Full Code Admission and Anticipated Discharge Date Admission Date: October 23, 2019 Subjective Patient is lying in bed, in no acute distress, says that he feels better since admission. Still has some pain in buttocks area. Seen by psychiatry today, much more cooperative with nursing staff today. Dressing changes done, still continues to have lots of drainage. Denies any fevers, chills, chest pain, shortness of breath, abdominal pain, nausea or vomiting. Review of Systems Review of Systems: All systems reviewed & are unremarkable except as noted in HPI & below Constitutional: no fever and no chills Respiratory: no cough and no dyspnea Cardiovascular: no chest pain and no palpitations Gastrointestinal: no abdominal pain, no nausea and no vomiting Physical Exam Physical Exam: Constitutional: Middle-aged male, lying in bed, in no acute distress Eyes: PERRL, conjunctivae normal, anicteric sclerae EOM intact bilaterally ENMT: external ear and nose normal, oropharynx normal Neck: trachea midline, no thyromegaly Respiratory: normal respiratory effort, lungs clear to auscultation Cardiovascular: RRR, no murmur, no edema Gastrointestinal (Abdomen): normal bowel sounds, soft, nontender, nondistended Musculoskeletal: Head/Neck/Chest: normocephalic, with extremity spontaneously Skin: suppurative hidradenitis of buttocks that is draining, clean dressings applied Neurologic: PERRL, EOMI, accommodation nl, no face palsy, no dysarthria CN's II-XI intact bilaterally, moves all extremities spontaneously Psychiatric: A+Ox3, euthymic affect Results & Data Results & Data ([facility]) Vital Signs (Past 12 Hours) Vital Signs Temp Pulse Resp BP BP Pulse Ox 10/25/19 07:48 36.9 C 63 18 100/51 L 95 10/25/19 07:00 37.3 C 67 14 100/53 L 95 10/24/19 23:04 37.4 C 65 16 128/73 99 Laboratory Results 10/25/19 10/25/19 Range/Units 06:21 06:21 WBC 11.82 H (4.8-10.8) K/uL RBC 3.70 L (4.7-6.1) M/uL Hgb 9.6 L (14.0-18.0) g/dL Hct 30.1 L (42-52) % MCV 81.4 (80-100) fL MCH 25.9 (25-34) pg MCHC 31.9 L (32-36) g/dL RDW Std Deviation 42.1 (36.4-46.3) fL RDW Coeff of Fausto 14.1 (11.5-14.5) % Plt Count 526 H (130-400) K/uL MPV 8.2 (7.4-10.4) fL Sodium 141 (136-145) mmol/L Potassium 3.7 (3.5-5.1) mmol/L Chloride 110 H (98-107) mmol/L Carbon Dioxide 27 (21-32) mmol/L Anion Gap 4.0 (3-11) BUN 7 (7-18) mg/dl Creatinine 0.85 (0.6-1.4) mg/dl Est Cr Clr Drug Dosing 122.5 ml/min Est GFR ( Amer) 126.3 Est GFR (Non-Af Amer) 109.0 BUN/Creatinine Ratio 8.0 L (10-20) Glucose 86 (70-99) mg/dl Calcium 8.1 L (8.5-10.1) mg/dl Phosphorus 3.1 (2.5-4.9) mg/dl Magnesium 1.9 (1.8-2.4) mg/dl Medications Administered Current Inpatient Medications Acetaminophen (Tylenol) 325 mg PO Q6H PRN PRN Reason: Pain or Fever Stop: 11/22/19 17:59 Last Admin: 10/23/19 21:54 Dose: 325 mg Documented by: Ciprofloxacin (Cipro) 400 mg in 200 mls @ 100 mls/hr IV Q12H [facility]; Protocol Stop: 10/30/19 20:59 Last Infusion: 10/24/19 23:18 Dose: Infused Documented by: Metronidazole (Flagyl) 500 mg in 100 mls @ 100 mls/hr IV Q8H [facility] Stop: 10/30/19 20:59 Last Infusion: 10/25/19 05:36 Dose: Infused Documented by: Clindamycin Phosphate 600 mg/ (Dextrose) 54 mls @ 100 mls/hr IV Q8H [facility] Stop: 10/31/19 00:00 Last Infusion: 10/25/19 00:38 Dose: Infused Documented by: Sodium Chloride (Nss 1000ml) 1,000 mls @ 125 mls/hr IV .Q8H [facility] Stop: 11/22/19 22:14 Last Admin: 10/25/19 00:05 Dose: 125 mls/hr Documented by: Ioversol (Optiray 320 100ml) 93 ml IV ONCE PRN PRN Reason: Interaction Checking Stop: 10/27/19 16:22 Last Admin: 10/23/19 16:23 Dose: 93 ml Documented by: Oxycodone HCl (Roxicodone Immediate Rel) 5 mg PO Q6H PRN PRN Reason: Pain Stop: 11/06/19 21:07 Last Admin: 10/24/19 23:19 Dose: 5 mg Documented by: Potassium Chloride (Klor-Con M20) 40 meq PO NOW STA Stop: 10/25/19 07:50
[2019-10-25] MEDS ORDERED: POTASSIUM CHLORIDE 20 MEQ TABCR PO ONE (08:00)
[2019-10-25] MEDS ORDERED: MAGNESIUM OXIDE 400 MG TAB PO ONE (08:00)
[2019-10-25] MEDS: CIPROFLOXACIN / D5W 400 MG/200 ML BAG IV SCH ×2 (08:31→20:53)
[2019-10-25] MEDS: OXYCODONE HCL IR 5 MG TAB (IMMEDIATE RELEASE) PO PRN ×3 (08:56→21:08)
--- NOTE | 2019-10-25 09:37 | Psychiatric Consultation ---
Date of Consultation October 25, 2019 Impression / Recommendations Impression Dr. Caryn Vieira was directly involved in review and discussion of the patient's case and participated in medical decision making regarding treatment recommendations. RECOMMENDATIONS: 10/24 - Pt reports stable mood and denies SI/SIB, HI, A/V hallucinations, or other signs of psychosis. No indication for inpatient psychiatric treatment. Pt reports feeling as though his outpatient psychiatric medication regimen is effective. - It does appear that patient has a basic understanding of current treatment recommendations, including recommendation for IV antibiotics, need for routine dressing changes, and ongoing assessments to determine if surgical intervention should be necessary. Pt verbalizes willingness to consider all recommendations being made. Pt states he is willing for dressing changes and verbalizes understanding of the importance of this. Pt is not intellectually sophisticated at baseline, so this level of understanding seems to be reasonable for him. - Recommendations for encouraging routine dressing changes is for clear communication with the patient about expectations and interventions to be confirmed. It might be helpful to use wording of "it's time for your dressing change", in order to encourage this intervention to be done, as patient indicates he does not refuse, but may be distracted at times. - Although patient does have a history of schizophrenia, he mental health symptoms seem to be at baseline or even better and recommendation would be to focus on behavioral interventions, and clear explanation of treatment recommendations. - Contacting [facility] nurse navigator to clarify follow-up with [facility]. Pt is scheduled for his next injection of Invega Sustenna 117mg on 10/29/2019. Pt's next appointment is on 12/07/2019 at 11:00am. Pt signed ROIs for his case management director, father, and Dr. Mann. - Will fax [facility] for outpatient records, and to fax a copy of our consult note for coordination of care. Risk Factors Assessment Do You Have Access To A Gun?: No Psych History Identifying Data 39-year-old male admitted medically on 10/23/2019 after presenting to the ED with exacerbation of issues related to chronic perirectal/gluteal abscess. Pt has had numerous admissions for this concern, often with psychiatric involvement related to history of schizophrenia and discharge planning concerns. Psychiatric consultation requested during this admission as patient has been resistant to nursing interventions. Chief Complaint "Ok. Feeling a little better today." History of Present Illness Gurpreet Schroeder is a 39-year-old male admitted medically on 10/23/2019 after presenting to the ED with exacerbation of issues related to chronic perirectal/gluteal abscess. Pt was last admitted medically from 06/22/2019 - 07/03/2019 for similar concerns, with psychiatric involvement requested due to schizophrenia and for assistance with discharge planning, as patient had been a resident of a [facility]. Pt was discharged home with parents following that medical admission. Psychiatric consultation is requested this admission due to patient's diagnosis of schizophrenia and non-compliance with nursing interventions related to his abscess. Pt was cooperative with psychiatric assessment. Pt reported that he feels "ok" today. Pt indicates he was admitted to the hospital for issues with "the absces s again." Pt was asked his understanding of treatment recommendations, and stated "right now I'm getting the IV antibiotics, I am feeling a little better today." Pt states that he was not sure that surgery was recommended at this time. When asked if the patient would consider surgery if this became a recommendation, he stated "sure, I'm willing to consider it depending on what it is." Pt states that he feels his mental health has been stable recently and feels his medications have been effective. Pt sees Dr. Mikala Mann at [facility] for psychiatry and believes he was just seen ~1.5 weeks ago for an appointment. Pt rates his mood a 7/10 for the past month, claiming this is normal for him. Pt also continues to meet with his case management director on an outpatient basis. Pt was asked about his cooperation with nursing interventions. He claims that he has been allowing staff to change his dressings and is ok with their assistance. He denies feeling embarrassed about his condition or not wanting staff's assistance. Pt reports he is fine with dressing changes, realizing "bad things will happen if this doesn't get better." Pt states that he has been doing well living at home with his parents and had a good transition from the [facility] to home in 06/2019. He denies feeling as though there are any additional services we can offer him at this time. He denies other needs or concerns. Past Psychiatric History Current Psychiatric Diagnosis: Paranoid Schizophrenia Outpatient Services: Psychiatry - Dr. Mann Case management - Barbara Previous Psych Admissions: [facility]: [id number] [facility]: 07/2009, 09/2012, 02/2019 Numerous psychiatric consultations during medical admissions in the past Do You Have Access To A Gun?: No Past Medication Trials: Per 02/2019 H&P; including, but not limited to: 1. Clozapine 2. Zyprexa 3. Lexapro 4. Hydroxyzine 5. Invega Sustenna Likely numerous other psychotropic medications Allergies Allergy/AdvReac Type Severity Reaction Status Date / Time Penicillins Allergy Severe Rash Verified 10/23/19 16:15 Home Medications Home Medications Medication Instructions Recorded Confirmed Type hydroxyzine pamoate [Vistaril] 50 mg PO UD PRN 10/23/19 10/23/19 History paliperidone palmitate [Invega 0 mg IM MO 10/23/19 10/23/19 History Sustenna] Personal History Living Arrangements: Home (with parents) Living Arrangements Comments: Has previously lived in [facility] settings, discharged home with parents after 06/2019 medical admission Highest Grade Completed: High School Graduate 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: Disabled Marital Status: Single Number Of Children: None Beliefs That Will Affect Care: None History of Legal Problems: No previous reported history Psychological Trauma History Comment: No previously reported history of abuse Patient History Medical History Depression (Chronic) Paranoid schizophrenia (Chronic) Paranoid schizophrenia Perianal abscess (Acute) Perirectal abscess (Acute) Tobacco use disorder (Chronic) Surgical History History of incision and drainage Family History Other Cancer Denies family history of Schizophrenia Social History Preferred Language: Faroese Communication Ability: Effective After School Program Coordinator Required: No Beliefs That Will Affect Care: None marital status: Single Current Living Situation: Family Current Living Situation Comment: pt reports currently living with his parents current occupational status: disabled Other Information That Helps Us Care for You: No Feels Safe at Home: Yes Safety Concerns: Feels Safe At This Time Smoking Status: Current every day smoker Tobacco Type: cigarettes ; packs per day: 0.5 ; Cigarettes Per Day: 10 ; Do You Dip or Chew Tobacco: No ; Second Hand Exposure: Yes ; Hx Alcohol Use: No Hx Substance Use: No during the past year weight has: remained stable Physical Exam Psychiatric: Orientation: alert, oriented x 3 and cooperative (and pleasant) Apperance: appropriately dressed (hospital gown covering t-shirt), appropriately groomed and appeared stated age not malodorous, level of hygiene appears to be baseline Eye Contact: + poor eye contact (limited events of direct eye contact) Motor Behavior: no abnormal motor movements (observed while laying in bed) Speech: normal rate/rhythm/volume of speech (brief responses to questions, nonspontaneous) Affect: + flat affect (baseline for this particular patient) Mood: no depressed mood ("Alright, just fine", rating mood a 7/10 for the past month) and no anxious mood Thought Process: goal directed thought process and + concrete thought process Thought Content: reality based without delusions; not paranoid and no persecution Suicidal Thoughts: denies suicidal thoughts Homicidal Thoughts: denies homicidal thoughts Hallucinations: no auditory hallucinations and no visual hallucinations Cognition: recent memory grossly intact, attention grossly intact and language grossly intact Insight: + limited insight (at baseline, though seems to understand current need for treatment) Judgement: + limited judgement (at baseline, though seems to understand current need for treatment) Vital Signs (Past 24 Hours): Last Vital Signs Temp 36.9 C 10/25/19 07:48 Pulse 63 10/25/19 07:48 Resp 18 10/25/19 07:48 BP 100/51 L 10/25/19 07:48 Pulse Ox 95 10/25/19 07:48 Review of Systems Constitutional: denied Cardiovascular: denied Respiratory: denied Gastrointestinal: denied Neurological: denied Integumentary: reports localized pain to the region of his abscess Psychiatric: denies symptoms other than stated above Total of at least 10 systems reviewed, pertinent positives as above and in HPI. Results & Data ([facility]) Medications Administered Acetaminophen (Tylenol) 325 mg PO Q6H PRN PRN Reason: Pain or Fever Stop: 11/22/19 17:59 Last Admin: 10/23/19 21:54 Dose: 325 mg Documented by: [id number] Ciprofloxacin (Cipro) 400 mg in 200 mls @ 100 mls/hr IV Q12H [facility]; Protocol Stop: 10/30/19 20:59 Last Admin: 10/25/19 08:31 Dose: 100 mls/hr Documented by: [id number] Infusion: 10/24/19 23:18 Dose: 0 mls/hr Documented by: [id number] Admin: 10/24/19 21:12 Dose: 100 mls/hr Documented by: [id number] Infusion: 10/24/19 13:02 Dose: 0 mls/hr Documented by: [id number] Admin: 10/24/19 10:30 Dose: 100 mls/hr Documented by: [id number] Infusion: 10/24/19 00:40 Dose: 0 mls/hr Documented by: [id number] Admin: 10/23/19 22:38 Dose: 100 mls/hr Documented by: [id number] Metronidazole (Flagyl) 500 mg in 100 mls @ 100 mls/hr IV Q8H [facility] Stop: 10/30/19 20:59 Last Infusion: 10/25/19 05:36 Dose: 0 mls/hr Documented by: [id number] Admin: 10/25/19 04:36 Dose: 100 mls/hr Documented by: [id number] Infusion: 10/24/19 22:09 Dose: 0 mls/hr Documented by: [id number] Admin: 10/24/19 21:09 Dose: 100 mls/hr Documented by: [id number] Infusion: 10/24/19 15:45 Dose: 0 mls/hr Documented by: [id number] Admin: 10/24/19 13:29 Dose: 100 mls/hr Documented by: [id number] Infusion: 10/24/19 06:43 Dose: 0 mls/hr Documented by: [id number] Admin: 10/24/19 05:41 Dose: 100 mls/hr Documented by: [id number] Infusion: 10/23/19 23:40 Dose: 0 mls/hr Documented by: [id number] Admin: 10/23/19 22:38 Dose: 100 mls/hr Documented by: [id number] Clindamycin Phosphate 600 mg/ (Dextrose) 54 mls @ 100 mls/hr IV Q8H [facility] Stop: 10/31/19 00:00 Last Infusion: 10/25/19 09:11 Dose: 0 mls/hr Documented by: [id number] Admin: 10/25/19 08:32 Dose: 100 mls/hr Documented by: [id number] Infusion: 10/25/19 00:38 Dose: 0 mls/hr Documented by: [id number] Admin: 10/25/19 00:05 Dose: 100 mls/hr Documented by: [id number] Infusion: 10/24/19 16:25 Dose: 0 mls/hr Documented by: [id number] Admin: 10/24/19 15:52 Dose: 100 mls/hr Documented by: [id number] Infusion: 10/24/19 10:30 Dose: 0 mls/hr Documented by: [id number] Admin: 10/24/19 09:45 Dose: 100 mls/hr Documented by: [id number] Infusion: 10/24/19 01:11 Dose: 0 mls/hr Documented by: [id number] Admin: 10/24/19 00:21 Dose: 100 mls/hr Documented by: [id number] Sodium Chloride (Nss 1000ml) 1,000 mls @ 125 mls/hr IV .Q8H [facility] Stop: 11/22/19 22:14 Last Admin: 10/25/19 08:30 Dose: 125 mls/hr Documented by: [id number] Infusion: 10/25/19 08:05 Dose: 125 mls/hr Documented by: [id number] Admin: 10/25/19 00:05 Dose: 125 mls/hr Documented by: [id number] Infusion: 10/24/19 23:06 Dose: 125 mls/hr Documented by: [id number] Infusion: 10/24/19 22:09 Dose: 125 mls/hr Documented by: [id number] Infusion: 10/24/19 21:10 Dose: 0 mls/hr Documented by: [id number] Admin: 10/24/19 14:07 Dose: 125 mls/hr Documented by: [id number] Infusion: 10/24/19 13:46 Dose: 125 mls/hr Documented by: [id number] Admin: 10/24/19 05:46 Dose: 125 mls/hr Documented by: [id number] Infusion: 10/24/19 05:46 Dose: 125 mls/hr Documented by: [id number] Admin: 10/23/19 22:38 Dose: 125 mls/hr Documented by: [id number] Ioversol (Optiray 320 100ml) 93 ml IV ONCE PRN PRN Reason: Interaction Checking Stop: 10/27/19 16:22 Last Admin: 10/23/19 16:23 Dose: 93 ml Documented by: [id number] Oxycodone HCl (Roxicodone Immediate Rel) 5 mg PO Q6H PRN PRN Reason: Pain Stop: 11/06/19 21:07 Last Admin: 10/25/19 08:56 Dose: 5 mg Documented by: [id number] Admin: 10/24/19 23:19 Dose: 5 mg Documented by: [id number] Admin: 10/24/19 15:52 Dose: 5 mg Documented by: [id number] Admin: 10/24/19 05:43 Dose: 5 mg Documented by: [id number] Admin: 10/23/19 21:55 Dose: 5 mg Documented by: [id number] Coding Level of Care Code 40665 U Intl Hosp Care Lvl 2
[2019-10-26] MEDS: OXYCODONE HCL IR 5 MG TAB (IMMEDIATE RELEASE) PO PRN ×3 (03:08→21:38)
[2019-10-26] MEDS: metroNIDAZOLE 500 MG/100 ML BAG IV SCH ×3 (05:42→21:35)
[2019-10-26 05:49] LABS: Hematocrit (blood only) 30.1 % (42-52); Hemoglobin 9.7 g/dL (14.0-18.0); Mean Corpuscular Hgb Conc 32.2 g/dL (32-36); Mean Corpuscular Volume 80.7 fL (80-100); Mean Platelet Volume 8.3 fL (7.4-10.4); Platelet Count 546 K/uL (130-400); Red Blood Count 3.73 M/uL (4.7-6.1); White Blood Count 12.39 K/uL (4.8-10.8)
[2019-10-26 06:38] LABS: Calcium 8.4 mg/dl (8.5-10.1); Creatinine Clr Calc Pharmacy 118.4 ml/min; Est GFR (African American) 124.5; Est GFR (Non-African American) 107.5; Potassium 3.9 mmol/L (3.5-5.1)
[2019-10-26] MEDS: SODIUM CHLORIDE 0.9% 1000ML 1,000 ML IV SCH ×3 (08:07→21:36)
[2019-10-26] MEDS: CLINDAMYCIN 600 MG in DEXTROSE 5% 50 ML IV SCH ×2 (08:07→16:32)
[2019-10-26] MEDS: CIPROFLOXACIN / D5W 400 MG/200 ML BAG IV SCH ×2 (08:47→21:36)
[2019-10-26] MEDS: ACETAMINOPHEN 325 MG TAB PO PRN (16:33)
--- NOTE | 2019-10-26 22:49 | Hospitalist Progress Note ---
Date of Service October 26, 2019 Assessment & Plan (1) Hidradenitis suppurativa: possible abscess, possible perianal fistula -This is a patient with history of hidradenitis suppurativa who has had problems with this chronically, particularly of perirectal area. Patient with 4 days of rectal pain. He denies fevers at home or blood in the stools. No abdominal pain. no vomiting. no chest pain, no shortness of breath, no changes in urination, no dizziness, no headache. He presents to the emergency room on 10/23/2019 and found to have elevated WBC of 18,000. -CT abdomen: Extensive soft tissue thickening/inflammatory change involving the gluteal soft tissues. Multiple subtle hypodensities within the abnormal soft tissue thickening possibly representing developing abscesses/phlegmon. It would be difficult to to exclude a perianal fistula (This would be better assessed with MRI scanning).Normal appendix. Slight progression in the previously described bilateral inguinal lymphadenopathy. -ED provider reports she spoke with general surgery service but told no acute interventions at this time. hospitalist service requested general surgery to follow the patient when admitted in case any drainage needed which requires surgical incision -Dr. Valladares, surgery, evaluated the pt 10/24/19, patient declines surgery and wants to continue with IV antibiotics -Patient in no acute distress on admission. patient has draining from right buttock fluid common in appearance to pus from hidradenitis. Patient reports that this drainage started during his car ride to hospital -surface wound culture of buttock drainage -wound care q shift, wound care nurse ordered - 10/24/2019 Per nursing staff, patient refuses wound care or nursing care - 10/25/19 Seen by psychiatry today, patient is much more cooperative today, allows nursing staff to do dressing changes/wound care -blood cultures - negative -wound cltx positive for group B strep -Admitting physician started combination of antibiotics as clindamycin 600 mg IV q8 hours for MRSA coverage (can be stopped if wound culture negative for MRSA), ciprofloxacin 400 mg q12 hours for gram positive/gram negative coverage, metronidazole for anaerobe coverage , will continue current antibiotics for now (2) Paranoid schizophrenia: mild episode of recurrent major depression as per outpatient problem list -no acute behavioral issues, patient reports he makes medical decisions on his own, he allowed admitting physician to update his parents Kalin/Fe [phone] (admitting hospitalist miguel angel Gagnon) -outpatient follows with Benita Sanders for monthly 117 mg INVEGA SUSTENNA, last dose was first week of September 2019 as per patient -patient denies other medications besides Vistaril for sleep -Plan for next injection of Invega Sustenna scheduled for October 28 -Per nursing staff, patient refusing any wound care or nursing care, seen by surgery on 10/24/19, patient refused surgery previously and now also only wishes for IV antibiotics -Psychiatry consulted, patient is much more cooperative on 10/25/19, and allows nursing staff to do dressing changes/ wound care Prediabetes -HbA1c 6.1% -will have follow-up as outpatient with PCP DVT prophylaxis: SCDs Full Code Admission and Anticipated Discharge Date Admission Date: October 23, 2019 Subjective Patient is lying in bed, in no acute distress, says that he feels better since admission. Still has pain in buttocks area. Pt more cooperative with nursing staff. Dressing changes done, still continues to have drainage. Denies any fevers, chills, chest pain, shortness of breath, abdominal pain, nausea or vomiting. Review of Systems Review of Systems: All systems reviewed & are unremarkable except as noted in HPI & below Constitutional: no fever and no chills Respiratory: no cough and no dyspnea Cardiovascular: no chest pain and no palpitations Gastrointestinal: no abdominal pain, no nausea and no vomiting Physical Exam Physical Exam: Constitutional: Middle-aged male, lying in bed, in no acute distress Eyes: PERRL, conjunctivae normal, anicteric sclerae EOM intact bilaterally ENMT: external ear and nose normal, oropharynx normal Neck: trachea midline, no thyromegaly Respiratory: normal respiratory effort, lungs clear to auscultation Cardiovascular: RRR, no murmur, no edema Gastrointestinal (Abdomen): normal bowel sounds, soft, nontender, nondistended Musculoskeletal: Head/Neck/Chest: normocephalic, with extremity spontaneously Skin: suppurative hidradenitis of buttocks that is draining, clean dressings applied Neurologic: PERRL, EOMI, accommodation nl, no face palsy, no dysarthria CN's II-XI intact bilaterally, moves all extremities spontaneously Psychiatric: A+Ox3, euthymic affect Results & Data Results & Data ([place]) Vital Signs (Past 12 Hours) Vital Signs Temp Pulse Resp BP Pulse Ox 10/26/19 15:04 36.6 C 56 L 16 106/64 97 Laboratory Results 10/26/19 10/26/19 Range/Units 05:30 05:30 WBC 12.39 H (4.8-10.8) K/uL RBC 3.73 L (4.7-6.1) M/uL Hgb 9.7 L (14.0-18.0) g/dL Hct 30.1 L (42-52) % MCV 80.7 (80-100) fL MCH 26.0 (25-34) pg MCHC 32.2 (32-36) g/dL RDW Std Deviation 41.0 (36.4-46.3) fL RDW Coeff of Fausto 14.0 (11.5-14.5) % Plt Count 546 H (130-400) K/uL MPV 8.3 (7.4-10.4) fL Sodium 139 (136-145) mmol/L Potassium 3.9 (3.5-5.1) mmol/L Chloride 109 H (98-107) mmol/L Carbon Dioxide 25 (21-32) mmol/L Anion Gap 5.0 (3-11) BUN 6 L (7-18) mg/dl Creatinine 0.88 (0.6-1.4) mg/dl Est Cr Clr Drug Dosing 118.4 ml/min Est GFR ( Amer) 124.5 Est GFR (Non-Af Amer) 107.5 BUN/Creatinine Ratio 7.0 L (10-20) Glucose 81 (70-99) mg/dl Calcium 8.4 L (8.5-10.1) mg/dl Medications Administered Current Inpatient Medications Acetaminophen (Tylenol) 325 mg PO Q6H PRN PRN Reason: Pain or Fever Stop: 11/22/19 17:59 Last Admin: 10/26/19 16:33 Dose: 325 mg Documented by: Ciprofloxacin (Cipro) 400 mg in 200 mls @ 100 mls/hr IV Q12H [facility]; Protocol Stop: 10/30/19 20:59 Last Admin: 10/26/19 21:36 Dose: 400 mls/hr Documented by: Metronidazole (Flagyl) 500 mg in 100 mls @ 100 mls/hr IV Q8H [facility] Stop: 10/30/19 20:59 Last Admin: 10/26/19 21:35 Dose: 100 mls/hr Documented by: Clindamycin Phosphate 600 mg/ (Dextrose) 54 mls @ 100 mls/hr IV Q8H [facility] Stop: 10/31/19 00:00 Last Infusion: 10/26/19 18:11 Dose: Infused Documented by: Sodium Chloride (Nss 1000ml) 1,000 mls @ 80 mls/hr IV .[id number] [facility] Stop: 11/22/19 22:14 Last Admin: 10/26/19 21:36 Dose: 80 mls/hr Documented by: Ioversol (Optiray 320 100ml) 93 ml IV ONCE PRN PRN Reason: Interaction Checking Stop: 10/27/19 16:22 Last Admin: 10/23/19 16:23 Dose: 93 ml Documented by: Oxycodone HCl (Roxicodone Immediate Rel) 5 mg PO Q6H PRN PRN Reason: Pain Stop: 11/06/19 21:07 Last Admin: 10/26/19 21:38 Dose: 5 mg Documented by: Paliperidone Palmitate (Invega Sustenna) 117 mg IM ONE ONE Stop: 10/29/19 09:01
[2019-10-27] MEDS: CLINDAMYCIN 600 MG in DEXTROSE 5% 50 ML IV SCH ×3 (00:36→18:06)
[2019-10-27] MEDS: SODIUM CHLORIDE 0.9% 1000ML 1,000 ML IV SCH ×2 (00:38→12:00)
[2019-10-27] MEDS: OXYCODONE HCL IR 5 MG TAB (IMMEDIATE RELEASE) PO PRN ×3 (04:59→18:09)
[2019-10-27] MEDS: metroNIDAZOLE 500 MG/100 ML BAG IV SCH ×2 (05:03→14:01)
[2019-10-27 08:30] LABS: Hematocrit (blood only) 29.7 % (42-52); Hemoglobin 9.3 g/dL (14.0-18.0); Mean Corpuscular Hemoglobin 25.3 pg (25-34); Mean Corpuscular Hgb Conc 31.3 g/dL (32-36); Mean Corpuscular Volume 80.7 fL (80-100); Mean Platelet Volume 8.3 fL (7.4-10.4); Platelet Count 601 K/uL (130-400); RDW Coefficient of Variation 14.1 % (11.5-14.5); RDW Standard Deviation 41.8 fL (36.4-46.3); Red Blood Count 3.68 M/uL (4.7-6.1); White Blood Count 11.11 K/uL (4.8-10.8)
[2019-10-27 08:56] LABS: BUN Creatinine Ratio 7.3 (10-20); Calcium 8.6 mg/dl (8.5-10.1); Creatinine Clr Calc Pharmacy 125.5 ml/min; Est GFR (African American) 127.6; Est GFR (Non-African American) 110.1; Potassium 3.7 mmol/L (3.5-5.1)
[2019-10-27] MEDS ORDERED: POTASSIUM CHLORIDE 20 MEQ TABCR PO STA (09:13)
--- NOTE | 2019-10-27 09:13 | Hospitalist Progress Note ---
Date of Service October 27, 2019 Assessment & Plan (1) Hidradenitis suppurativa: possible abscess, possible perianal fistula -This is a patient with history of hidradenitis suppurativa who has had problems with this chronically, particularly of perirectal area. Patient with 4 days of rectal pain. He denies fevers at home or blood in the stools. No abdominal pain. no vomiting. no chest pain, no shortness of breath, no changes in urination, no dizziness, no headache. He presents to the emergency room on 10/23/2019 and found to have elevated WBC of 18,000. -CT abdomen: Extensive soft tissue thickening/inflammatory change involving the gluteal soft tissues. Multiple subtle hypodensities within the abnormal soft tissue thickening possibly representing developing abscesses/phlegmon. It would be difficult to to exclude a perianal fistula (This would be better assessed with MRI scanning).Normal appendix. Slight progression in the previously described bilateral inguinal lymphadenopathy. -ED provider reports she spoke with general surgery service but told no acute interventions at this time. hospitalist service requested general surgery to follow the patient when admitted in case any drainage needed which requires surgical incision -Surgery evaluated the pt, patient declines surgery and wants to continue with IV antibiotics -Patient in no acute distress on admission. patient has draining from right buttock fluid common in appearance to pus from hidradenitis. Patient reports that this drainage started during his car ride to hospital -10/27/19 Now drainage much improved, area is clean, clean dressings applied, he is interested in going home, not interested in any surgical intervention, however agrees that he needs to follow-up with wound care and continue taking antibiotics -surface wound culture of buttock drainage -positive for group B strep -wound care q shift, wound care nurse ordered - 10/24/2019 patient refused wound care or nursing care - 10/25/19 Seen by psychiatry, patient is much more cooperative, allows nursing staff to do dressing changes/wound care -blood cultures - negative -Admitting physician started combination of antibiotics as clindamycin 600 mg IV q8 hours for MRSA coverage (can be stopped if wound culture negative for MRSA), ciprofloxacin 400 mg q12 hours for gram positive/gram negative coverage, metronidazole for anaerobe coverage , continued while inpatient Will discharge patient on clindamycin Follow-up with wound care clinic, and primary care provider. Patient may need general surgery and/ or infectious disease follow up, if not improving. (2) Paranoid schizophrenia: mild episode of recurrent major depression as per outpatient problem list -no acute behavioral issues, patient reports he makes medical decisions on his own, he allowed admitting physician to update his parents Kalin/Fe [phone] (admitting hospitalist updated Kalin) -outpatient follows with [facility] for monthly 117 mg INVEGA SUSTENNA, last dose was first week of September 2019 as per patient -patient denies other medications besides Vistaril for sleep -Plan for next injection of Invega Sustenna scheduled for October 28 -Per nursing staff, patient refusing any wound care or nursing care, seen by surgery on 10/24/19, patient refused surgery previously and now also only wishes for IV antibiotics -Psychiatry consulted, patient ismore cooperative on 10/25/19, and allows nursing staff to do dressing changes/ wound care, but still not interested in any surgical intervention Prediabetes -HbA1c 6.1% -will have follow-up as outpatient with PCP DVT prophylaxis: SCDs Full Code Admission and Anticipated Discharge Date Admission Date: October 23, 2019 Subjective Patient is lying in bed, in no acute distress, says that he feels better since admission. He would like to go home today. Discussed with him that he needs to continue antibiotics, and it is crucial that he follows up with wound care clinic. He is aware and agrees. I discussed with him possible surgical intervention while in the hospital, and patient is not interested. Denies any fevers, chills, chest pain, shortness of breath, abdominal pain, nausea or vomiting. Review of Systems Review of Systems: All systems reviewed & are unremarkable except as noted in HPI & below Constitutional: no fever and no chills Respiratory: no cough and no dyspnea Cardiovascular: no chest pain and no palpitations Gastrointestinal: no abdominal pain, no nausea and no vomiting Physical Exam Physical Exam: Constitutional: Middle-aged male, lying in bed, in no acute distress Eyes: PERRL, conjunctivae normal, anicteric sclerae EOM intact bilaterally ENMT: external ear and nose normal, oropharynx normal Neck: trachea midline, no thyromegaly Respiratory: normal respiratory effort, lungs clear to auscultation Cardiovascular: RRR, no murmur, no edema Gastrointestinal (Abdomen): normal bowel sounds, soft, nontender, nondistended Musculoskeletal: Head/Neck/Chest: normocephalic, with extremity spontaneously Skin: suppurative hidradenitis of buttocks that is draining (improved), clean dressings applied Neurologic: PERRL, EOMI, accommodation nl, no face palsy, no dysarthria CN's II-XI intact bilaterally, moves all extremities spontaneously Psychiatric: A+Ox3, euthymic affect Results & Data Results & Data ([facility]) Vital Signs (Past 12 Hours) Vital Signs Temp Pulse Resp BP Pulse Ox 10/27/19 07:49 37.4 C 65 18 96/62 L 95 10/26/19 22:56 37.1 C 60 16 111/65 97 Laboratory Results 10/27/19 10/27/19 Range/Units 07:51 07:51 WBC 11.11 H (4.8-10.8) K/uL RBC 3.68 L (4.7-6.1) M/uL Hgb 9.3 L (14.0-18.0) g/dL Hct 29.7 L (42-52) % MCV 80.7 (80-100) fL MCH 25.3 (25-34) pg MCHC 31.3 L (32-36) g/dL RDW Std Deviation 41.8 (36.4-46.3) fL RDW Coeff of Fausto 14.1 (11.5-14.5) % Plt Count 601 H (130-400) K/uL MPV 8.3 (7.4-10.4) fL Sodium 139 (136-145) mmol/L Potassium 3.7 (3.5-5.1) mmol/L Chloride 108 H (98-107) mmol/L Carbon Dioxide 27 (21-32) mmol/L Anion Gap 4.0 (3-11) BUN 6 L (7-18) mg/dl Creatinine 0.83 (0.6-1.4) mg/dl Est Cr Clr Drug Dosing 125.5 ml/min Est GFR ( Amer) 127.6 Est GFR (Non-Af Amer) 110.1 BUN/Creatinine Ratio 7.3 L (10-20) Glucose 78 (70-99) mg/dl Calcium 8.6 (8.5-10.1) mg/dl Medications Administered Current Inpatient Medications Acetaminophen (Tylenol) 325 mg PO Q6H PRN PRN Reason: Pain or Fever Stop: 11/22/19 17:59 Last Admin: 10/26/19 16:33 Dose: 325 mg Documented by: Ciprofloxacin (Cipro) 400 mg in 200 mls @ 100 mls/hr IV Q12H [facility]; Protocol Stop: 10/30/19 20:59 Last Infusion: 10/26/19 23:55 Dose: Infused Documented by: Metronidazole (Flagyl) 500 mg in 100 mls @ 100 mls/hr IV Q8H [facility] Stop: 10/30/19 20:59 Last Infusion: 10/27/19 06:13 Dose: Infused Documented by: Clindamycin Phosphate 600 mg/ (Dextrose) 54 mls @ 100 mls/hr IV Q8H [facility] Stop: 10/31/19 00:00 Last Admin: 10/27/19 08:29 Dose: 100 mls/hr Documented by: Sodium Chloride (Nss 1000ml) 1,000 mls @ 80 mls/hr IV .[id number] [facility] Stop: 11/22/19 22:14 Last Admin: 10/27/19 00:38 Dose: 80 mls/hr Documented by: Ioversol (Optiray 320 100ml) 93 ml IV ONCE PRN PRN Reason: Interaction Checking Stop: 10/27/19 16:22 Last Admin: 10/23/19 16:23 Dose: 93 ml Documented by: Oxycodone HCl (Roxicodone Immediate Rel) 5 mg PO Q6H PRN PRN Reason: Pain Stop: 11/06/19 21:07 Last Admin: 10/27/19 04:59 Dose: 5 mg Documented by: Paliperidone Palmitate (Invega Sustenna) 117 mg IM ONE ONE Stop: 10/29/19 09:01 Potassium Chloride (Klor-Con M20) 40 meq PO NOW STA Stop: 10/27/19 09:14
[2019-10-27] MEDS: CIPROFLOXACIN / D5W 400 MG/200 ML BAG IV SCH (09:31)
--- NOTE | 2019-10-27 19:17 | Discharge Summary ---
Date of Service October 27, 2019 Admission HPI Per Admitting Provider This is a patient with history of hidradenitis suppurativa who has had problems with this chronically particularly of perirectal area. Patient with 4 days of rectal pain. He denies fevers at home or blood in the stools. No abdominal pain. no vomiting. no chest pain, no shortness of breath, no changes in urination, no dizziness, no headache. He presents to the emergency room on 10/23/2019 and found to have elevated WBC of 18,000. -CT abdomen: Extensive soft tissue thickening/inflammatory change involving the gluteal soft tissues. Multiple subtle hypodensities within the abnormal soft tissue thickening possibly representing developing abscesses/phlegmon. It would be difficult to to exclude a perianal fistula (This would be better assessed with MRI scanning).Normal appendix. Slight progression in the previously jermaine cribed bilateral inguinal lymphadenopathy. -ED provider reports she spoke with general surgery service but told no acute interventions at this time. hospitalist service will request general surgery to follow the patient when admitted in case any drainage needed which requires surgical incision -Patient in no acute distress on exam. He was ordered for Zosyn by ED provider, but because of penicillin allergies, patient concerned of allergic reactions such as leg rash and this antibiotic order was stopped by hospitalist and was never given. In addition on exam, by hospitalist that patient has draining from right buttock fluid common in appearance to pus from hidradenitis. Patient reports that this drainage started during his car ride to hospital Family History: patient reports no health problems that run in the family Primary Care Provider: Kenneth Agrawal, DO Admission Exam Per Admitting Provider Constitutional: WD/WN, vitals as above Eyes: PERRL, conjunctivae normal, anicteric sclerae EOM intact bilaterally ENMT: external ear and nose normal, oropharynx normal Neck: trachea midline, no thyromegaly Respiratory: normal respiratory effort, lungs clear to auscultation Cardiovascular: RRR, no murmur, no edema Gastrointestinal (Abdomen): normal bowel sounds, soft, nontender, no hepatosplenomegaly Musculoskeletal: Head/Neck/Chest: normocephalic Skin: suppurative hidradenitis of right buttock that is draining Neurologic: PERRL, EOMI, accommodation nl, no face palsy, no dysarthria CN's II-XI intact bilaterally Psychiatric: A+Ox3, euthymic affect Principal Diagnosis Hidradenitis suppurativa, possible abscess Discharge Exam Constitutional: Middle-aged male, lying in bed, in no acute distress Eyes: PERRL, conjunctivae normal, anicteric sclerae EOM intact bilaterally ENMT: external ear and nose normal, oropharynx normal Neck: trachea midline, no thyromegaly Respiratory: normal respiratory effort, lungs clear to auscultation Cardiovascular: RRR, no murmur, no edema Gastrointestinal (Abdomen): normal bowel sounds, soft, nontender, nondistended Musculoskeletal: Head/Neck/Chest: normocephalic, with extremity spontaneously Skin: suppurative hidradenitis of buttocks that is draining, clean dressings applied Neurologic: PERRL, EOMI, accommodation nl, no face palsy, no dysarthria CN's II-XI intact bilaterally, moves all extremities spontaneously Psychiatric: A+Ox3, euthymic affect Discharge Data Allergies Allergy/AdvReac Type Severity Reaction Status Date / Time Penicillins Allergy Severe Rash Verified 10/23/19 16:15 Consultations 10/23/19 17:36 ED Decision to Admit Stat 10/24/19 07:30 Consult General Surgery Routine 10/25/19 08:08 Consult Psychiatry Routine Ordered Studies 10/23/19 15:13 CT pelvis w/IV con only Stat IMPRESSION: 1. Extensive soft tissue thickening/inflammatory change involving the gluteal soft tissues 2. Multiple subtle hypodensities within the abnormal soft tissue thickening possibly representing developing abscesses/phlegmon 3.It would be difficult to to exclude a perianal fistula. This would be better assessed with MRI scanning 4. Normal appendix 5. Slight progression in the previously described bilateral inguinal lymphadenopathy. Hospital Course (1) Hidradenitis suppurativa: possible abscess, possible perianal fistula -This is a patient with history of hidradenitis suppurativa who has had problems with this chronically, particularly of perirectal area. Patient with 4 days of rectal pain. He denies fevers at home or blood in the stools. No abdominal pain. no vomiting. no chest pain, no shortness of breath, no changes in urination, no dizziness, no headache. He presents to the emergency room on 10/23/2019 and found to have elevated WBC of 18,000. -CT abdomen: Extensive soft tissue thickening/inflammatory change involving the gluteal soft tissues. Multiple subtle hypodensities within the abnormal soft tissue thickening possibly representing developing abscesses/phlegmon. It would be difficult to to exclude a perianal fistula (This would be better assessed with MRI scanning).Normal appendix. Slight progression in the previously described bilateral inguinal lymphadenopathy. -ED provider reports she spoke with general surgery service but told no acute interventions at this time. hospitalist service requested general surgery to follow the patient when admitted in case any drainage needed which requires surgical incision -Surgery evaluated the pt, patient declines surgery and wants to continue with IV antibiotics -Patient in no acute distress on admission, draining from right buttock fluid common in appearance to pus from hidradenitis. Patient reports that this drainage started during his car ride to hospital -surface wound culture -positive for group B strep -blood cultures - negative -wound care q shift, wound care nurse ordered -Admitting physician started combination of antibiotics as clindamycin 600 mg IV q8 hours for MRSA coverage (can be stopped if wound culture negative for MRSA), ciprofloxacin 400 mg q12 hours for gram positive/gram negative coverage, metronidazole for anaerobe coverage , continued while inpatient - 10/24/2019 patient refused wound care or nursing care - 10/25/19 Seen by psychiatry, patient is much more cooperative, allows nursing staff to do dressing changes/wound care -10/27/19 Now drainage much improved, area is clean, clean dressings applied, he is interested in going home, not interested in any surgical intervention, however agrees that he needs to follow-up with wound care and continue taking antibiotics Will discharge patient on clindamycin Follow-up with wound care clinic, and primary care provider. Patient may need general surgery and/ or infectious disease follow up, if not improving or worsening. (2) Paranoid schizophrenia: mild episode of recurrent major depression as per outpatient problem list -no acute behavioral issues, patient reports he makes medical decisions on his own, he allowed admitting physician to update his parents Kalin/Fe [phone] (admitting hospitalist updated Kalin) -outpatient follows with Benita Sanders for monthly 117 mg INVEGA SUSTENNA, last dose was first week of September 2019 as per patient -patient denies other medications besides Vistaril for sleep -Plan for next injection of Invega Sustenna scheduled for October 28 -Per nursing staff, patient refusing any wound care or nursing care, seen by surgery on 10/24/19, patient refused surgery previously and now also only wishes for IV antibiotics -Psychiatry consulted, patient is more cooperative on 10/25/19, and allows nursing staff to do dressing changes/ wound care, but still not interested in any surgical intervention Prediabetes -HbA1c 6.1% - follow-up with PCP Total Time Total Time Spent Total Time Spent (In Minutes): 40 Total Time Includes: Examination of the Patient, Discharge Planning, Medication Reconciliation and Communication With Other Providers Discharge Plan Discharge Items Patient Disposition: Home - Self-Care Reason For Visit: HIDRADENITIS SUPPURATIVA,POSSIBLE ABSCESS,LEUKOCYT Discharge Diagnosis: Hidradenitis suppurativa, possible abscess Activity: Per Instructions section Non-emergency contact: Primary Care Provider Call non-emergency contact if: you have any medication questions and your symptoms worsen Follow-up/Referrals: Kenneth Agrawal DO [Primary Care Provider] - Diet: Regular Addtl Attending Provider Instructions: Follow-up with your primary care doctor within 1 week. Take antibiotic (clindamycin ) as prescribed. Also recommend to take probiotics, you can obtain these [id number]. For pain, you can take Tylenol 1000 mg 3 times a day. Make sure to get your injection of Invega Sustenna as scheduled, on October 28. You need to follow-up with wound care within the next couple of days. Follow their recommendations as they were given to you, (see recommendations below). For care of perirectal abscess, use sitz baths three times per day as needed. Change ABD/gauze pads as needed to keep skin clean and dry. Pending Studies at Discharge: No Stand-Alone Forms: My [place], Opioid Pain Management, Smoking Cessation Medications and DC Order Prescriptions: New clindamycin HCl 300 mg capsule 300 mg PO Q6H 7 Days Qty: 28 RF: 0 Continued hydroxyzine pamoate [Vistaril] 50 mg capsule 50 mg PO UD PRN (Reason: Anxiety) RF: 0 Invega Sustenna 117 mg/0.75 mL syringe 0 mg IM MO RF: 0 Discharge Orders: Discharge Order (Routine); Ordered 10/27/19 Ordered By: Yves Gleason Admission Data Admit Date/Time: 10/23/19 18:09 Attending Provider: Yves Gleason Admit Provider: Sidney Brady Primary Care Provider: Kenneth Agrawal Other Providers: Benja Valladares ; Sidney Brady ; Caryn Vieira Other Interventions: SHAKIRAY Interdisciplinary Discharge Planning Last Done: 10/25/19 13:30
[2019-10-29] MEDS ORDERED: PALIPERIDONE PALMITATE 117 MG/0.75 ML SYR IM ONE (09:00)
== END 2019-10-27 20:30 | disposition home or self-care (01) | DRG 394 ==
LOC: ED 13:47 → SUATTDRO 18:09 → 3N 18:09

== ENCOUNTER 2020-01-15 01:32 | Inpatient (IN) ==
[2020-01-15] MEDS ORDERED: POTASSIUM CHLORIDE 20 MEQ TABCR PO STA (02:09)
[2020-01-15] MEDS ORDERED: SODIUM CHLORIDE 0.9% 1000ML 1,000 ML IV ONE (02:09)
[2020-01-15] MEDS: POTASSIUM CHLORIDE / WTR 10 MEQ/100 ML PLCT IV SCH ×4 (02:30→06:58)
--- NOTE | 2020-01-15 03:20 | Emergency Department Note ---
Impression & Plan Hypokalemia, Thought disorder ED Provider Note NAME: KIERA STANTON AGE: 39 SEX: M ARRIVES VIA: Ambulance INFORMANT: Patient ED PROVIDER(S): Teagan Melendez DO CHIEF COMPLAINT: Mental health crisis PLAN: Disposition: Signed out to Dr. De La Garza Condition: Stable MEDICAL DECISION MAKING: This is a 39-year-old male patient with a history of paranoid schizophrenia who presents to the emergency department stating that he is having a mental health crisis. The patient was seen here earlier today for a pilonidal cyst and found to be significantly hypokalemic. The patient signed himself out AMA. He was found downtown by calling 911 stating that he was having a mental health crisis. He was brought back to the emergency department for evaluation. The patient's potassium was replaced with 2K riders which only brought the potassium level up from 2.4-2.8. I have ordered an additional 20 mEq of potassium IV which the patient is receiving now. His heart rate is coming down nicely and he is hemodynamically stable. Once the potassium is infused, the patient will be considered medically cleared and can be evaluated by psychiatry. He describes a significant increase to his anxiety and feels as if he is having a mental health crisis. Triage Nursing notes reviewed and agree them. Prior medical records reviewed Vital Signs: reviewed and remarkable for tachycardia Differential diagnosis: Thought disorder, medication noncompliance, electrolyte abnormality ER treatment provided: IV potassium IV normal saline solution Diagnostics interpreted by me: ECG: Sinus tachycardia at 126; poor baseline; no ST segment elevation or signs of ischemia; no ectopy Cardiac Monitoring: None Laboratory studies: See below Imaging studies: See below Consultation(s): None HPI: 39/M arrives for evaluation of mental health crisis. The patient was seen here earlier today for a pilonidal cyst along with other complaints. Laboratory studies revealed significant hypokalemia. The patient did not go through with the recommended treatment and signed out AMA. Patient's family came to the hospital looking for the patient when he did not return home. The patient eventually called 911 from downtown stating that he was having a mental health crisis. He explains that he has felt increasingly anxious over the past couple of days and has wanted to talk to his complex case manager about things. He returns to the emergency department now wishing to have the treatment that was suggested earlier and to talk to somebody about his mental health concerns. The patient's parents are here in the waiting room voicing significant concern for the patient's wellbeing stating that his schizophrenia is not well controlled at this point. ROS: See above HPI for pertinent positives & negatives. A total of 10 systems reviewed and were otherwise negative. PAST MEDICAL HISTORY:See Below PAST SURGICAL HISTORY:See Below FAMILY HISTORY:See Below SOCIAL HISTORY:See Below HOME MEDICATIONS:See list ALLERGIES:Penicillin VITALS:See Below PHYSICAL EXAMINATION: HEENT: Head - normocephalic and atraumatic Pupils are equal, round, and reactive to light. Extraocular eye muscles are intact, and sclera are anicteric. Nose - moist nasal mucosa without discharge. Mouth - moist buccal mucosa. Oropharynx is nonerythematous and there is no tonsillar exudate or edema noted. Neck: Supple; no cervical lymphadenopathy. Heart: Tachycardic rate and regular rhythm. There is a normal S1 and S2 with no murmurs, clicks, or gallops appreciated. Lungs: Clear to auscultation bilaterally with no wheezes, rales, or rhonchi. Abdomen: Soft, completely nontender, nondistended, with good bowel sounds. There are no palpable pulsatile masses or hepatosplenomegaly. There is no guarding, rigidity, or rebound noted. Extremities: No evidence of cyanosis, clubbing, or edema. There are easily palpable peripheral pulses. Skin: warm and dry with good turgor and no rashes. Psych: The patient admits to feeling very anxious but denies any homicidal or suicidal thoughts. He does admit to taking his normal medications and seeing Dr. Monteiro once every 3 months. ED COURSE: Times/Reassessments: 0145: Patient was evaluated in room A6. I did review the records from the emergency department visit from earlier. A twelve-lead EKG was obtained. We will start infusing IV potassium. He will also receive an oral dose of potassium. The patient was also started on a normal saline drip. 0440: The patient was rechecked at this time. The potassium has infused. We will recheck a potassium level. Unfortunately, the patient's potassium level has only risen to 2.8. I have ordered an additional 20 mEq of IV potassium along with an additional 500 cc of saline. The patient's heart rate has come down nicely. He does state that he is feeling somewhat better. He was able to articulate a bit more easily when I checked in with him. The case will be signed out to Dr. De La Garza at change of shift awaiting IV potassium infusion and medical clearance. I have personally spent greater than 30 minutes of critical care time in the direct management of this patient. This includes bedside care, interpretation of diagnostic studies, and testing, discussion with consultants, patient, and family members, and other required patient management activities. This 30 minutes is in excess of all separately billable procedures. Teagan Melendez DO Past Med/Surg History Medical History (Updated 01/15/20 @ 06:37 by Teagan Melendez DO) Depression Paranoid schizophrenia Paranoid schizophrenia Perianal abscess Perirectal abscess Tobacco use disorder Surgical History History of incision and drainage Family History Other Cancer Denies family history of Schizophrenia Social History Smoking Status: Current every day smoker Tobacco Type: Cigarettes packs per day: 0.5; Cigarettes Per Day: 10; Second Hand Exposure: Yes; Hx Alcohol Use: No Hx Substance Use: No Preferred Language: Arabic Communication Ability: Effective Special Events Driver Required: No Beliefs That Will Affect Care: None marital status: Single Current Living Situation: Family Current Living Situation Comment: pt reports currently living with his parents current occupational status: disabled Feels Safe at Home: Yes during the past year weight has: remained stable Allergies Allergies Allergy/AdvReac Type Severity Reaction Status Date / Time Penicillins Allergy Severe Rash Verified 01/15/20 01:52 Home Meds Home Medications Medication Instructions Recorded Confirmed Invega Sustenna 0 mg IM MO 10/23/19 01/15/20 hydroxyzine pamoate [Vistaril] 50 mg PO PM PRN 10/23/19 01/15/20 Results & Data (ED) Vital Signs Vital Signs - 24 hr 01/15/20 01:46 01/15/20 02:16 01/15/20 02:32 Temperature 37.3 C Temperature Source Oral Pulse Rate 96 H 127 H 125 H Pulse Rate from SpO2 Sensor 127 H 126 H Respiratory Rate 19 19 12 Respiratory Effort / Characteristics Non-Labored Spontaneous Respiratory Depth Normal Blood Pressure 152/85 H 141/83 H 146/93 H Blood Pressure Mean 107 89 110 Blood Pressure Position Sitting Pulse Oximetry 98 95 96 Oxygen Delivery Method Room Air Sepsis Recent Fever Within 48 Hours No Sepsis New/Unexplained Change in Mental Status N/A Sepsis Action Taken by Nursing No Action Required 01/15/20 03:00 01/15/20 03:01 01/15/20 03:30 Temperature Temperature Source Pulse Rate 119 H 120 H 121 H Pulse Rate from SpO2 Sensor 119 H 120 H 119 H Respiratory Rate 17 10 L 15 Respiratory Effort / Characteristics Respiratory Depth Blood Pressure 148/96 H 147/92 H Blood Pressure Mean 110 112 Blood Pressure Position Pulse Oximetry 97 98 98 Oxygen Delivery Method Sepsis Recent Fever Within 48 Hours Sepsis New/Unexplained Change in Mental Status Sepsis Action Taken by Nursing 01/15/20 03:31 01/15/20 03:47 01/15/20 03:48 Temperature Temperature Source Pulse Rate 113 H 117 H 118 H Pulse Rate from SpO2 Sensor 116 H 117 H 118 H Respiratory Rate 13 12 15 Respiratory Effort / Characteristics Respiratory Depth Blood Pressure 174/101 H Blood Pressure Mean 128 Blood Pressure Position Pulse Oximetry 97 97 98 Oxygen Delivery Method Sepsis Recent Fever Within 48 Hours Sepsis New/Unexplained Change in Mental Status Sepsis Action Taken by Nursing 01/15/20 04:00 01/15/20 04:30 01/15/20 05:00 Temperature Temperature Source Pulse Rate 120 H 110 H 113 H Pulse Rate from SpO2 Sensor 119 H 112 H 115 H Respiratory Rate 12 19 21 Respiratory Effort / Characteristics Respiratory Depth Blood Pressure 161/99 H 153/95 H 155/98 H Blood Pressure Mean 109 108 110 Blood Pressure Position Pulse Oximetry 98 98 97 Oxygen Delivery Method Sepsis Recent Fever Within 48 Hours Sepsis New/Unexplained Change in Mental Status Sepsis Action Taken by Nursing 01/15/20 05:30 Temperature Temperature Source Pulse Rate 105 H Pulse Rate from SpO2 Sensor Respiratory Rate 19 Respiratory Effort / Characteristics Respiratory Depth Blood Pressure Blood Pressure Mean Blood Pressure Position Pulse Oximetry Oxygen Delivery Method Sepsis Recent Fever Within 48 Hours Sepsis New/Unexplained Change in Mental Status Sepsis Action Taken by Nursing Laboratory Data Result diagrams: 01/15/20 05:06 Lab Results 01/15/20 Range/Units 05:06 Potassium 2.8 L D (3.5-5.1) mmol/L Administered Medications Potassium Chloride (K Tylor / Wtr) 10 meq in 100 mls @ 100 mls/hr IV Q1H CORNELIUS Stop: 01/15/20 07:59 Last Admin: 01/15/20 05:59 Dose: 100 mls/hr Documented by: [id number] Discontinued Medications Sodium Chloride (Nss 1000ml) 1,000 mls @ 999 mls/hr IV .Q1H1M ONE Stop: 01/15/20 03:09 Last Infusion: 01/15/20 03:49 Dose: 0 mls/hr Documented by: [id number] Admin: 01/15/20 02:30 Dose: 999 mls/hr Documented by: [id number] Potassium Chloride (K Tylor / Wtr) 10 meq in 100 mls @ 100 mls/hr IV Q1H CORNELIUS Stop: 01/15/20 04:14 Last Infusion: 01/15/20 04:51 Dose: 0 mls/hr Documented by: [id number] Admin: 01/15/20 03:49 Dose: 100 mls/hr Documented by: [id number] Infusion: 01/15/20 03:49 Dose: 0 mls/hr Documented by: [id number] Admin: 01/15/20 02:30 Dose: 100 mls/hr Documented by: [id number] Sodium Chloride (Nss) 500 mls @ 999 mls/hr IV .Q31M ONE Stop: 01/15/20 06:20 Last Admin: 01/15/20 05:59 Dose: 999 mls/hr Documented by: [id number] Potassium Chloride (Potassium Chloride 20 Meq Tabcr) 40 meq PO NOW STA Stop: 01/15/20 02:10 Last Admin: 01/15/20 02:30 Dose: 40 meq Documented by: [id number] Discharge Plan Visit Data Chief Complaint: Mental Health Evaluation Stated Complaint: MENTAL HEALTH ED Provider: Teagan Melendez Discharge Problem: Hypokalemia, Thought disorder Forms Stand Alone Forms: My [facility] [employer]obubble, Suicide Prevention Resources Prescriptions Prescriptions: No Action hydroxyzine pamoate [Vistaril] 50 mg capsule 50 mg PO PM PRN (Reason: Anxiety) RF: 0 Invega Sustenna 117 mg/0.75 mL syringe 0 mg IM MO RF: 0
[2020-01-15] MEDS ORDERED: SODIUM CHLORIDE 0.9% 500 ML IV ONE (05:50)
[2020-01-15] MEDS ORDERED: metroNIDAZOLE 500 MG/100 ML BAG IV STA (07:35)
--- NOTE | 2020-01-15 07:35 | Emergency Department Note ---
ED Visit Note Patient is a 39-year-old male that was signed out to me at change of shift he was evaluated initially once in the ER and found to have perianal abscess. He left AMA. He was brought back in as he was having mental crisis. He called EMS to bring him back in. His family is very concerned about him. CT was reviewed that was performed last night which shows a small focal abscess. He has been having pain over the past 3 to 5 days which has been worsening here. He has been persistently tachycardic in the ER with a heart rate of 130s trended down to 105-110. Patient has a leukocytosis of nearly 16,000 with an abscess visualized on CT of the pelvis. His hypokalemic was being repleted. Discussed with Dr. Sandoval for admission due to the abscess, leukocytosis of 16,000 elevated heart rate and hypokalemia with his mood disorder. .
[2020-01-15 08:38] LABS: Basophils # (auto) 0.01 K/uL (0-0.2); Basophils % (auto) 0.1 %; Eosinophils # (auto) 0.22 K/uL (0-0.5); Eosinophils % (auto) 1.5 %; Immature Granulocytes # (auto) 0.06 K/uL (0.00-0.02); Immature Granulocytes % (auto) 0.4 %; Lymphocytes # (auto) 3.56 K/uL (1.2-3.4); Lymphocytes % (auto) 24.4 %; Mean Corpuscular Hemoglobin 27.4 pg (25-34); Mean Corpuscular Hgb Conc 32.3 g/dL (32-36); Mean Corpuscular Volume 84.9 fL (80-100); Monocytes # (auto) 0.97 K/uL (0.11-0.59); Monocytes % (auto) 6.6 %; Neutrophils # (auto) 9.79 K/uL (1.4-6.5); Platelet Count 501 K/uL (130-400); RDW Coefficient of Variation 17.9 % (11.5-14.5); RDW Standard Deviation 55.2 fL (36.4-46.3); Red Blood Count 3.65 M/uL (4.7-6.1); White Blood Count 14.61 K/uL (4.8-10.8)
--- NOTE | 2020-01-15 08:52 | Electrocardiogram Report ---
Test Reason : Blood Pressure : / mmHG Vent. Rate : 126 BPM Atrial Rate : 126 BPM P-R Int : 138 ms QRS Dur : 082 ms QT Int : 320 ms P-R-T Axes : 041 051 050 degrees QTc Int : 463 ms Sinus tachycardia Left atrial enlargement Abnormal ECG When compared with ECG of 22-JUN-2019 14:13, Vent. rate has increased BY 52 BPM Confirmed by Moises Robles ([id number]) on 01/15/2020 8:51:36 AM Referred By: REFERRED SELF Confirmed By:Moises Robles
[2020-01-15 08:59] LABS: Albumin Globulin Ratio 0.5 (0.9-2); Albumin Level 2.5 gm/dl (3.4-5.0); BUN Creatinine Ratio 9.1 (10-20); Bilirubin,Total 0.5 mg/dl (0.2-1); Calcium 8.5 mg/dl (8.5-10.1); Est GFR (African American) 140.2; Est GFR (Non-African American) 120.9; Globulin 4.6 gm/dl (2.5-4.0); Magnesium 2.2 mg/dl (1.8-2.4); Total Protein 7.1 gm/dl (6.4-8.2)
--- NOTE | 2020-01-15 09:06 | History & Physical Report ---
Date of Service January 15, 2020 Assessment & Plan (1) Cellulitis, gluteal: (2) Hidradenitis suppurativa: This is a 39yo M with a PMH of paranoid schizophrenia, depression, hidradenitis suppurativa, chronic perirectal abscess, tobacco use, anemia presented to ER for buttock abscess. Pt with h/o hidradenitis and h/o recurrent abscess requiring I&D in past. Pt states 2 weeks ago started with drainage from buttock. He states PCP placed him on Augmentin and prednisone. past 3 days with increased pain. Denies fever/chills In ER pt afebrile, P: 120's, BP: 152/85, R: 18, 98% on RA. WBC: 15. CT ABD/PELVIS: 1. There is dermal thickening with mild surrounding induration involving the gluteal soft tissues along the median gluteal crease. The appearance is typical for synovitis and clinical correlation will be required. 2. No organized fluid collection is identified to suggest abscess. 3. The pelvic viscera is normal as imaged. -Blood cultures pending -In ER given Flagyl 500mg IV -Will switch to Zosyn IV -General surgery consult -CBC, BMP in am (3) Hypokalemia: Initial K: 2.4 up to 2.8, then repeat at 3.0. Magnesium: 2.2 Pt has received total 40meq K IV and 40meq po in ER. Pt sinus tachycardia in ER up to 120's. Currently down to 110. BP: 121/80. -Replace and monitor (4) Paranoid schizophrenia: Follows with Dr Mann Currently on Invega once monthly and Vistaril prn Report upon repeat visit in ER today pt reported increased anxiety and mental health issues Currently improved while being in ER and is calm and cooperative. Denies suicidal ideations. -Monitor and if worsening consider inpatient psych consult (5) Anemia: Chronic anemia Hgb: 10 and is at baseline -Monitor H&H (6) Tobacco use disorder: Smokes 1/2ppd -Denies nicotine patch at this time DVT Prophylaxis -Low risk, ambulate Full Code as per discussion with pt Follows with Dr Agrawal for routine care Pt was seen and care coordinated with Dr Brady. See addendum History of Present Illness Chief Complaint: Buttock abscess Primary Care Provider: Kenneth Agrawal, DO This is a 39yo M with a PMH of paranoid schizophrenia, depression, hidradenitis suppurativa, chronic perirectal abscess, tobacco use, anemia presented to ER for buttock abscess. Pt with h/o hidradenitis and h/o recurrent abscess requiring I&D in past. Pt states 2 weeks ago started with drainage from buttock. He states PCP placed him on Augmentin and prednisone. He states he has been showering and trying to care for buttock area himself. Pt states past 3 days with increased pain to buttocks and reported to ER yesterday evening. He ended up signing out and returned to ER for reported increased anxiety and mental health issues. Currently pt is denying any increased mental health issues. He follows with Dr Mann. Denies suicidal ideations. Denies fever/chills, diaphoresis, N/V/D/C, CLINE, dizziness, syncope, vision changes, neck pain, CP, SOB, orthopnea, palpitations, cough, sore throat, rhinorrhea, abdominal pain, paresthesias, weakness, extremity edema, rashes, urinary symptoms. Initial ER visit pt found to have hypokalemia at 2.4, WBC:15 Pt has received total 40meq K IV and 40meq po with repeat K: 2.8 and then 3.0. Initial CT abd/pelvis with concern for cellulitis buttock and possible small abscess. Pt was given Flagyl in ER. Allergies Allergy/AdvReac Type Severity Reaction Status Date / Time Penicillins Allergy Severe Rash Verified 01/15/20 01:52 Home Medications Home Medications Medication Instructions Recorded Confirmed Type Invega Sustenna 0 mg IM MO 10/23/19 01/15/20 History hydroxyzine pamoate [Vistaril] 50 mg PO PM PRN 10/23/19 01/15/20 History Past Med/Surg History Medical History Depression Paranoid schizophrenia Paranoid schizophrenia Perianal abscess Perirectal abscess Tobacco use disorder Surgical History History of incision and drainage Family History Other Cancer Denies family history of Schizophrenia Social History Smoking Status: Current every day smoker Tobacco Type: Cigarettes packs per day: 0.5; Cigarettes Per Day: 10; Second Hand Exposure: Yes; Hx Alcohol Use: No Hx Substance Use: No Preferred Language: Icelandic Communication Ability: Effective Operations And Intelligence Assistant Required: No Beliefs That Will Affect Care: None marital status: Single Current Living Situation: Family Current Living Situation Comment: pt reports currently living with his parents current occupational status: disabled Other Information That Helps Us Care for You: No Feels Safe at Home: Yes Safety Concerns: Feels Safe At This Time during the past year weight has: remained stable Review of Systems Review of Systems: All systems reviewed & are unremarkable except as noted in HPI & below Physical Exam Physical Exam: General: no distress, WDWN Head: normocephalic, atraumatic Eyes: conjunctiva non-injected, anicteric ENT: normal inspection external ears, nose, mucous membranes moist Neck: supple, trachea midline Lungs: clear, no respiratory distress, no wheezing/rhonchi/rales CV: RRR, no murmur, no pretibial edema Abd: normal BS, soft, non-tender Buttock: +thickened skin bilateral buttocks lateral to gluteal cleft with tenderness to palpation, +tract noted to right buttock, no purulent drainage noted Ext: no cyanosis, no calf tenderness Neuro: A&O x 3, no focal deficits noted, normal affect, cooperative, no signs of anxiety Skin: warm, dry, as above in buttock Results & Data Results & Data ([facility]) Vital Signs (Past 12 Hours) Vital Signs Temp Pulse Resp BP Pulse Ox 01/15/20 08:14 110 H 16 95 01/15/20 08:08 118 H 17 121/80 01/15/20 08:00 106 H 12 01/15/20 07:30 101 H 27 H 01/15/20 07:00 99 H 12 01/15/20 06:30 110 H 12 01/15/20 06:00 115 H 17 01/15/20 05:30 105 H 19 01/15/20 05:00 113 H 21 155/98 H 97 01/15/20 04:30 110 H 19 153/95 H 98 01/15/20 04:00 120 H 12 161/99 H 98 01/15/20 03:48 118 H 15 98 01/15/20 03:47 117 H 12 174/101 H 97 01/15/20 03:31 113 H 13 97 01/15/20 03:30 121 H 15 147/92 H 98 01/15/20 03:01 120 H 10 L 98 01/15/20 03:00 119 H 17 148/96 H 97 01/15/20 02:32 125 H 12 146/93 H 96 01/15/20 02:16 127 H 19 141/83 H 95 01/15/20 01:46 37.3 C 96 H 19 152/85 H 98 Laboratory Results Short CBC 01/15/20 Range/Units 08:21 WBC 14.61 H (4.8-10.8) K/uL Hgb 10.0 L (14.0-18.0) g/dL Hct 31.0 L (42-52) % Plt Count 501 H (130-400) K/uL BMP 01/15/20 01/15/20 05:06 08:21 Sodium 141 Potassium 2.8 L D 3.0 L Chloride 106 Carbon Dioxide 31 BUN 6 L Creatinine 0.66 D Glucose 77 Calcium 8.5 Liver Function 01/15/20 Range/Units 08:21 Total Bilirubin 0.5 (0.2-1) mg/dl AST 23 (15-37) U/L ALT 22 (12-78) U/L Alkaline Phosphatase 82 (45-117) U/L Albumin 2.5 L (3.4-5.0) gm/dl Diagnostic Findings CT ABD/PELVIS: IMPRESSION: 1. There is dermal thickening with mild surrounding induration involving the gluteal soft tissues along the median gluteal crease. The appearance is typical for synovitis and clinical correlation will be required. 2. No organized fluid collection is identified to suggest abscess. 3. The pelvic viscera is normal as imaged. Code Status & VTE Plan VTE Prophylaxis Plan VTE Prophylaxis will be ordered: No Supervising Physician Co-Signing Physician Notes I, Dr. Sidney Brady, have seen and examined the patient with physician respiratory care assistant and agree with the assessment and plan as above and would like to comment that On exam: General: no acute distress Neuro/Psych: patient is calm and cooperative and answers all questions appropriately Heart: mild tachycardia Lungs: clear to auscultation bilaterally Abdomen: soft, nontender, positive bowl sounds Buttock: no gross drainage at time of exam, tenderness to palpation of bilateral buttock close to the anal verge, some are of fluctuance on left buttock and there is a cleft in the skin of possibly old scarring Assessment and plan -this is a patient with history of paranoid schizophrenia who has had previous admissions for buttock problems such as infection or abscess from recurrent hidradenitis complication. patient presents with leukocytosis and tachycardia and hypokalemia with initial serum potassium between 2.[address] scan concerning for buttock abscess. He reports 10 day course completion of oral antibiotics with prednisone about 1 week ago. he has gotten one dose of Flagyl in the ER and some potassium supplements. -will continue to replace potassium as needed and try to target a serum level between 3.5 to 4 -draw blood cultures and expand antibiotic coverage to Zosyn, he appears to have beta lactams before without any significant reactions. no urgent need for surgical inventions for abscess at this time but patient will benefit to be seen by general surgery consult in case any incission and drainage need to be done for this admission -monitor on medical / telemetry -continue home behavior health medications. patient declined nicotinine patch for smoking history -agree with the assessment and plans as per physician respiratory care assistant -My colleague hospitalist Dr. Witt will be following the patient starting on 01/16/2020 (1) Anemia Anemia type: unspecified type Qualified Code(s): D64.9 - Anemia, unspecified
[2020-01-15] MEDS ORDERED: PIPERACILL/TAZOBAC CONSULT ACTIVE PRN (10:38)
[2020-01-15] MEDS ORDERED: POTASSIUM CHLORIDE 40 MEQ in SODIUM CHLORIDE 0.9% 1000ML 1,000 ML IV SCH (11:00)
[2020-01-15] MEDS ORDERED: PIPERACILLIN/TAZOBACTAM 3.375 GM in DEXTROSE 5% 100 ML IV ONE (11:00)
--- NOTE | 2020-01-15 12:18 | Surgery Consultation ---
Date of Consultation January 15, 2020 Assessment & Plan (1) Hidradenitis suppurativa: This is a 39y M with a PMH of paranoid schizophrenia, depression, and hidradenitis suppurativa who presented to the [facility] ED on 01/15/20 with buttock pain. Patient does have a known history of hidradenitis suppurativa and perianal abscesses. In the ED a pelvic CT scan was obtained that revealed dermal thickening with mild surrounding induration involving the gluteal soft tissues along the median gluteal crease. There is no organized fluid collection identified to suggest abscess. At this time we agree with starting patient on IV zosyn and continuing local wound care. We will continue to monitor for now, but no current plans for surgical intervention at this time. History of Present Illness Attending Physician: Sidney Brady MD History of Present Illness This is a 39y M with a PMH of paranoid schizophrenia, depression, and hidradenitis suppurativa who presented to the [facility] ED on 01/15/20 with buttock pain. Of note the patient has a history of hidradenitis and perianal abscesses sometimes requiring surgical intervention for drainage. He went to his PCP recently due to pain and they prescribed him a 10 day course of augmentin of which patient states he completed last week. Unfortunately, over the last 3 days he has felt an increase in pain and swelling, especially noted with ambulation, prompting him to come in for further evaluation. Patient states he felt as though the antibiotics were initially doing his job, but he went to the ED yesterday noting concern for abscess and he ultimately signed out AMA only to return again this AM. In the ED a pelvic CT was obtained that revealed some dermal thickening with mild surrounding induration involving the gluteal soft tissues along the median gluteal crease. There is no organized fluid collection is identified to suggest abscess. Patient denies fevers/chills, nausea/vomiting, change in bowel habits, or abdominal pain. Patient states the area has been draining a purulent fluid, but says this has been happening for years. He tries to self manage as best as he can at home with showers and keeping the area clean. Patient's WBC 14 and he was found to have hypokalemia, therefore he was admitted under the medicine service. A surgical consultation was placed. Allergies Allergy/AdvReac Type Severity Reaction Status Date / Time Penicillins Allergy Severe Rash Verified 01/15/20 01:52 Home Medications Home Medications Medication Instructions Recorded Confirmed Type Invega Sustenna 0 mg IM MO 10/23/19 01/15/20 History hydroxyzine pamoate [Vistaril] 50 mg PO PM PRN 10/23/19 01/15/20 History Patient History Medical History Depression Paranoid schizophrenia Paranoid schizophrenia Perianal abscess Perirectal abscess Tobacco use disorder Surgical History History of incision and drainage Family History Other Cancer Denies family history of Schizophrenia Social History Smoking Status: Current every day smoker Tobacco Type: Cigarettes packs per day: 0.5; Cigarettes Per Day: 10; Second Hand Exposure: Yes; Hx Alcohol Use: No Hx Substance Use: No Preferred Language: Irish Communication Ability: Effective Players Assistant Required: No Beliefs That Will Affect Care: None marital status: Single Current Living Situation: Family Current Living Situation Comment: pt reports currently living with his parents current occupational status: disabled Other Information That Helps Us Care for You: No Feels Safe at Home: Yes Safety Concerns: Feels Safe At This Time during the past year weight has: remained stable Review of Systems Constitutional: no fever and no chills Gastrointestinal: no abdominal pain, no nausea, no vomiting and no change in bowel habits Integumentary: + purulent drainage from buttocks, + pain with walking and palpation Physical Exam Physical Exam: awake/alert Constitutional: no acute distress Skin: induration noted on bilateral buttocks, multiple sinus tracts noted, ttp along areas of induration, + purulent drainage noted primarily of L buttock Results & Data ([facility]) Vital Signs (Past 12 Hours) CT SCAN OF THE PELVIS WITH IV CONTRAST CLINICAL HISTORY: Left buttock pain. COMPARISON STUDY: CT of the pelvis dated 10/23/2019. TECHNIQUE: Following the IV administration of 93 cc of Optiray 320, CT scan of the pelvis performed from the pelvic inlet to the proximal femora. Images are reviewed in the axial, sagittal, and coronal planes. IV contrast was administered without complication. A dose lowering technique was utilized adhering to the principles of ALARA. CT DOSE: 194.15 mGy.cm FINDINGS: The bladder, prostate, and seminal vesicles are normal as visualized. There is no pelvic sidewall adenopathy. Prominent inguinal lymph nodes are nonspecific and likely on a reactive basis. These are similar to previous. There is dermal thickening and mild soft tissue induration identified in the buttock bilaterally, left greater than right. This extends along the median gluteal crease. No organized fluid collection is identified to indicate abscess. The visualized portions of small bowel and colon are normal in appearance. The perianal soft tissues are normal as visualized. No perianal fluid collection is seen. There is mild but age advanced atherosclerotic calcification of the iliac arteries. The bony pelvis appears intact. No lytic or blastic lesion is seen. The regional musculature is normal and symmetric. IMPRESSION: 1. There is dermal thickening with mild surrounding induration involving the gluteal soft tissues along the median gluteal crease. The appearance is typical for synovitis and clinical correlation will be required. 2. No organized fluid collection is identified to suggest abscess. 3. The pelvic viscera is normal as imaged. ACT 112: Negative or not required by law. PG Care Time/CCT Total # of Minutes Spent Total Time Spent with Patient: Total time spent is greater than 50% in coordination of care (as documented) at patient's floor/unit and/or counseling patient: Coding Level of Care Code 68116 Initial Inpt Care Lvl 1 Diagnoses Hidradenitis suppurativa L73.2
[2020-01-15] MEDS ORDERED: POTASSIUM CHLORIDE 20 MEQ TABCR PO ONE (16:00)
[2020-01-15] MEDS: PIPERACILLIN/TAZOBACTAM 3.375 GM in DEXTROSE 5% 100 ML IV SCH ×2 (16:47→23:42)
[2020-01-15 17:44] LABS: Appearance Urine Clear (Clear); Bilirubin Urine Negative (Negative); Blood Urine Negative (Negative); Color Urine Dark Yellow; Glucose Urine UA Negative (Negative); Ketones Urine Trace (Negative); Leukocyte Esterase Urine Negative (Negative); Nitrite Urine Negative (Negative); Protein Urine Negative (Negative); Specific Gravity Urine 1.022 (1.000-1.030); Urobilinogen Urine Negative (Negative); pH Urine 6.5 (4.5-7.5)
[2020-01-16 06:31] LABS: Basophils # (auto) 0.01 K/uL (0-0.2); Basophils % (auto) 0.1 %; Eosinophils # (auto) 0.24 K/uL (0-0.5); Eosinophils % (auto) 2.8 %; Hematocrit (blood only) 29.7 % (42-52); Hemoglobin 9.4 g/dL (14.0-18.0); Immature Granulocytes # (auto) 0.01 K/uL (0.00-0.02); Immature Granulocytes % (auto) 0.1 %; Lymphocytes # (auto) 2.54 K/uL (1.2-3.4); Lymphocytes % (auto) 29.4 %; Mean Corpuscular Hemoglobin 26.9 pg (25-34); Mean Corpuscular Hgb Conc 31.6 g/dL (32-36); Mean Corpuscular Volume 85.1 fL (80-100); Mean Platelet Volume 8.1 fL (7.4-10.4); Monocytes # (auto) 0.38 K/uL (0.11-0.59); Monocytes % (auto) 4.4 %; Neutrophils # (auto) 5.45 K/uL (1.4-6.5); Neutrophils % (auto) 63.2 %; Platelet Count 440 K/uL (130-400); RDW Coefficient of Variation 18.3 % (11.5-14.5); RDW Standard Deviation 56.8 fL (36.4-46.3); Red Blood Count 3.49 M/uL (4.7-6.1); White Blood Count 8.63 K/uL (4.8-10.8)
[2020-01-16 07:09] LABS: Creatinine Clr Calc Pharmacy 156.7 ml/min; Est GFR (African American) 145.8; Est GFR (Non-African American) 125.8; Magnesium 2.1 mg/dl (1.8-2.4); Potassium 3.7 mmol/L (3.5-5.1)
--- NOTE | 2020-01-16 08:21 | Surgery Progress Note ---
Date of Service January 16, 2020 Assessment & Plan (1) Abscess, gluteal: His white blood cell count is down to normal today. The CT scan did not show a fluid collection to drain. Continue the IV antibiotics. Will reevaluate again tomorrow. At this point nothing definitive to incision and drain. Admission and Anticipated Discharge Date Admission Date: January 15, 2020 Subjective Patient known to me from prior admissions for the same problem. He states this episode has been escalating for about 3 days. He currently feels about the same as he did yesterday. Physical Exam Physical Exam: Alert and oriented no acute distress HEENT: Poor dentition. PERRLA. EOMI. Abdomen: Soft nontender nondistended Rectum: Multiple areas of scarring and firmness from previous incision and drainages. There is no warmth or redness. No definitive fluctuance or abscess. Results & Data ([facility]) Vital Signs (Past 12 Hours) Vital Signs Temp Pulse Pulse Resp BP Pulse Ox 01/16/20 07:15 59 L 01/16/20 07:04 37.1 C 76 18 141/87 H 98 01/16/20 04:11 36.9 C 72 16 149/69 H 99 01/16/20 02:26 84 01/15/20 23:00 36.8 C 75 18 132/77 93 PG Care Time/CCT Total # of Minutes Spent Total Time Spent with Patient: Total time spent is greater than 50% in coordi nation of care (as documented) at patient's floor/unit and/or counseling patient: Coding Level of Care Code 61919 Subseq Hosp Care Lvl 2 Diagnoses Abscess, gluteal L02.31
[2020-01-16] MEDS: PIPERACILLIN/TAZOBACTAM 3.375 GM in DEXTROSE 5% 100 ML IV SCH ×2 (08:33→15:55)
[2020-01-16] MEDS: ACETAMINOPHEN 325 MG TAB PO PRN (08:33)
[2020-01-16] MEDS ORDERED: VANCOMYCIN HCL 1,000 MG in SODIUM CHLORIDE 0.9% 250 ML IV SCH (11:45)
[2020-01-16] MEDS ORDERED: VANCOMYCIN HCL 1,750 MG in SODIUM CHLORIDE 0.9% 500 ML IV ONE (12:00)
[2020-01-16] MEDS ORDERED: VANCOMYCIN CONSULT ACTIVE PRN (12:47)
--- NOTE | 2020-01-16 13:11 | Pharmacy Report ---
Pharmacy Abx Initial Consult - Date of Service January 16, 2020 - Pharmacy Dosing Scope Date of Consult: 01/16/2020 Consultation requested by: Dr. Witt Pharmacy is consulted to initiate Vancomycin IV dosing therapy, order appropriate labs and adjust drug dose/frequency. - Subjective The patient is a 39 year old M admitted on 01/15/20 08:28. - Objective Height: 6 ft Weight: 67.7 kg Vital Signs (Past 12hrs): Vital Signs Temp Pulse Pulse Pulse Resp BP Pulse Ox 01/16/20 12:00 36.4 C L 86 18 120/98 96 01/16/20 07:15 59 L 01/16/20 07:04 37.1 C 76 18 141/87 H 98 01/16/20 04:11 36.9 C 72 16 149/69 H 99 01/16/20 02:26 84 Lab Results (24hrs): Laboratory Tests (24 Hours) 01/16/20 01/16/20 06:12 06:12 WBC 8.63 Neut # (Auto) 5.45 Creatinine 0.60 Est Cr Clr Drug Dosing 156.7 - Risk Factors for Resistance * Hospitalization for 48 hours or more within the past 90 days * Antimicrobial use within the last 90 days: * Augmentin - Assessment & Plan Assessment 39 year old M admitted on 01/14 secondary to perirectal abscess. * PMHx significant for hidradenitis suppurativa with abscess requiring I&D in the past. * Previously admitted from 10/23/19 - 10/27/19 for the same reason. * Started noticing drainage two weeks ago and then placed on Augmentin by PCP but present when pain worsened over the last three days.. * Zosyn was started upon admission for perirectal abscess. * Now, an anaerobic bottle from one blood culture has started growing GPC's in clusters which prompted Vancomycin use. * He is afebrile since admission. Leukocytosis is improving (14.6k --> 8.6k). Renal function is at baseline. Plan Vancomycin & Zosyn for treatment of bacteremia & perirectal abscess Vancomycin IV * Patient meets criteria for vancomycin AUC dosing nomogram * AUC/ALBER is the preferred PK/PD target for vancomycin * Target AUC/ALBER = 400-600 * AUC guided dosing is effective and associated with decreased risk of nephrotoxicity Piperacillin/tazobactam * 3.375 gm IV every 8 hours * Appropriate per renal function and indication Pharmacy will continue to follow and will adjust dose/frequency as necessary. Thank you.
--- NOTE | 2020-01-16 17:57 | Hospitalist Progress Note ---
Date of Service January 16, 2020 Assessment & Plan (1) Hidradenitis suppurativa: (2) Abscess, gluteal: 39yo M with a PMH of paranoid schizophrenia, depression, hidradenitis suppurativa, chronic perirectal abscess, tobacco use disorder and anemia present to the ER with increased drainage and tenderness from the buttock Multiple hospital admission for gluteal and saloni-rectal abscesses with chronic buttock pain. Non compliant with abx therapy in the past Very poor hygiene CT abd/pelvis showed no organized fluid collection is identified to suggest abscess. Received Flagyl in the ER Will continue V Zosyn for now Blood cx positive for gram positive cocci Surgery on board and no plan for surgical intervention and drainage ID on board recommended 14 days of IV Zosyn or Levaquin and Flagyl PO Wound care on board Continue daily wound care Gram positive Cocci Blood cx positive for gram positive cocci in clusters Received IV Vanco x1 ID Consulted and suggested positive blood cx was due to contamination Recommended to d/c IV Vanco Will repeat blood cx Hypokalemia: Possible related to poor oral intake K 3 on admission K 3.7 today Continue monitor BMP Paranoid schizophrenia: Follows with Dr Mann Currently on Invega once monthly and Vistaril prn Denies suicidal ideations. Stable Anemia: Multifactorial with history of thalassemia and chronic infection Hgb 9.5 today Stable Tobacco use disorder: Counseling on smoking cessation Admission and Anticipated Discharge Date Admission Date: January 15, 2020 Subjective Pt was seen and examined Lying in bed with no distress Pt said that he feels fine Denies any chest pain, palpitation, dizziness and SOB Physical Exam Physical Exam: General- No acute distress Head- atraumatic Eyes- PERRL, EOMI, ENT- oropharynx clear Neck- supple, no JVD Lungs- clear to auscultation Heart- regular rhythm; no murmur Abdomen- normal bowel sounds, soft, nontender Extremities- no calf tenderness Neuro- alert, oriented x 3; PERRL, EOMI; no facial palsy; no dysarthria - +sinus tract, buttock induration, + drainage (Underwear soaked ) Skin- warm & dry Results & Data Results & Data ([facility]) Vital Signs (Past 12 Hours) Vital Signs Temp Pulse Pulse Pulse Resp BP Pulse Ox 01/16/20 16:00 80 01/16/20 15:18 37.0 C 72 18 144/87 H 99 01/16/20 12:00 36.4 C L 86 18 120/98 96 01/16/20 07:15 59 L 01/16/20 07:04 37.1 C 76 18 141/87 H 98
[2020-01-17] MEDS: PIPERACILLIN/TAZOBACTAM 3.375 GM in DEXTROSE 5% 100 ML IV SCH ×4 (01:18→23:37)
[2020-01-17 08:24] LABS: Hematocrit (blood only) 30.5 % (42-52); Hemoglobin 9.9 g/dL (14.0-18.0); Mean Corpuscular Hemoglobin 27.6 pg (25-34); Mean Corpuscular Hgb Conc 32.5 g/dL (32-36); Mean Platelet Volume 8.4 fL (7.4-10.4); Platelet Count 542 K/uL (130-400); RDW Coefficient of Variation 17.9 % (11.5-14.5); RDW Standard Deviation 55.6 fL (36.4-46.3); Red Blood Count 3.59 M/uL (4.7-6.1); White Blood Count 8.23 K/uL (4.8-10.8)
[2020-01-17 08:48] LABS: BUN Creatinine Ratio 13.5 (10-20); Calcium 8.5 mg/dl (8.5-10.1); Creatinine Clr Calc Pharmacy 136.3 ml/min; Est GFR (African American) 136.8; Potassium 3.6 mmol/L (3.5-5.1)
--- NOTE | 2020-01-17 10:27 | Surgery Progress Note ---
Date of Service January 17, 2020 Assessment & Plan (1) Abscess of buttock: continues to clinically improve. Pain improving. WBC normal. afebrile. CT did not show fluid collection. would continue to treat conservatively for now. if symptoms worsen or don't resolve may need another CT scan in 2-3 days to r/o organizing abcess. will continue to follow. Admission and Anticipated Discharge Date Admission Date: January 15, 2020 Subjective pt seen. still with some rectal pain but improved from yesterday. Physical Exam Physical Exam: alert. comfortable rectal area difficult to evaluate for abcess secondary to scarring/thickening of skin from many I & D's. small amount of purulent drainage from sinus tract. mild to moderate tenderness on both buttocks. no warmth or induration. Results & Data ([facility]) Vital Signs (Past 12 Hours) Vital Signs Temp Pulse Pulse Resp BP Pulse Ox 01/17/20 08:02 58 L 01/17/20 07:05 36.7 C 92 H 20 154/83 H 97 01/17/20 04:07 36.9 C 77 18 142/71 H 97 01/17/20 00:44 61 01/16/20 23:09 37 C 83 16 142/75 H 98 PG Care Time/CCT Total # of Minutes Spent Total Time Spent with Patient: Total time spent is greater than 50% in coordination of care (as documented) at patient's floor/unit and/or counseling patient: Coding Level of Care Code 11653 Subseq Hosp Care Lvl 2 Diagnoses Abscess of buttock L02.31
[2020-01-17] MEDS: ACETAMINOPHEN 325 MG TAB PO PRN ×2 (15:59→23:39)
--- NOTE | 2020-01-17 19:28 | Hospitalist Progress Note ---
Date of Service January 17, 2020 Assessment & Plan (1) Hidradenitis suppurativa: (2) Abscess, gluteal: 39yo M with a PMH of paranoid schizophrenia, depression, hidradenitis suppurativa, chronic perirectal abscess, tobacco use disorder and anemia present to the ER with increased drainage and tenderness from the buttock Multiple hospital admission for gluteal and saloni-rectal abscesses with chronic buttock pain. Non compliant with abx therapy in the past Very poor hygiene CT abd/pelvis showed no organized fluid collection is identified to suggest abscess. Received Flagyl in the ER Will continue V Zosyn for now Blood cx positive for cog negative staph not lugdunensis Surgery on board and no plan for surgical intervention and drainage recommended to repeat the CT in 2 to 3 days if worsening to r/o organizing abcess. ID on board recommended 14 days of IV Zosyn or Levaquin and Flagyl PO Wound care on board Continue daily wound care Gram positive bacilli Blood cx positive for cog negative staph not lugdunensis Received IV Vanco x1 ID Consulted and suggested positive blood cx was due to contamination Recommended to d/c IV Vanco repeat blood cx pending Hypokalemia: Possible related to poor oral intake K 3 on admission K 3.6 today Continue monitor BMP SVT tele monitor showed a brief episode SVT last night Possible related to electrolytes abnormalite Asymptomatic Will keep K above 4 and mg above 2 Continue monitor Paranoid schizophrenia: Follows with Dr Mann Currently on Invega once monthly and Vistaril prn Denies suicidal ideations. Stable Anemia: Multifactorial with history of thalassemia and chronic infection Hgb 9.9 today Stable Tobacco use disorder: Counseling on smoking cessation Admission and Anticipated Discharge Date Admission Date: January 15, 2020 Subjective Pt was seen and examined Lying in bed with no distress Pt said that he is ok telemonitor showed that pt had a brief episode of SVT last night Denies any chest pain, palpitation, dizziness and SOB Physical Exam Physical Exam: General- No acute distress Head- atraumatic Eyes- PERRL, EOMI, ENT- oropharynx clear Neck- supple, no JVD Lungs- clear to auscultation Heart- regular rhythm; no murmur Abdomen- normal bowel sounds, soft, nontender Extremities- no calf tenderness Neuro- alert, oriented x 3; PERRL, EOMI; no facial palsy; no dysarthria - +sinus tract, buttock induration, + drainage (Underwear soaked ) Skin- warm & dry Results & Data Results & Data ([facility]) Vital Signs (Past 12 Hours) Vital Signs Temp Pulse Pulse Pulse Resp BP Pulse Ox 01/17/20 16:30 71 01/17/20 15:51 36.8 C 67 18 149/77 H 97 01/17/20 11:26 36.7 C 62 18 154/81 H 100 01/17/20 08:02 58 L
[2020-01-17] MEDS ORDERED: POTASSIUM CHLORIDE 20 MEQ TABCR PO ONE (20:00)
[2020-01-18 07:36] LABS: Basophils # (auto) 0.01 K/uL (0-0.2); Basophils % (auto) 0.1 %; Eosinophils # (auto) 0.19 K/uL (0-0.5); Eosinophils % (auto) 2.4 %; Hematocrit (blood only) 33.4 % (42-52); Hemoglobin 10.6 g/dL (14.0-18.0); Immature Granulocytes # (auto) 0.02 K/uL (0.00-0.02); Immature Granulocytes % (auto) 0.3 %; Lymphocytes # (auto) 3.13 K/uL (1.2-3.4); Lymphocytes % (auto) 39.8 %; Mean Corpuscular Hgb Conc 31.7 g/dL (32-36); Mean Corpuscular Volume 85.2 fL (80-100); Mean Platelet Volume 8.6 fL (7.4-10.4); Monocytes % (auto) 6.4 %; Neutrophils # (auto) 4.02 K/uL (1.4-6.5); Platelet Count 535 K/uL (130-400); RDW Standard Deviation 56.2 fL (36.4-46.3); Red Blood Count 3.92 M/uL (4.7-6.1); White Blood Count 7.87 K/uL (4.8-10.8)
[2020-01-18 08:02] LABS: BUN Creatinine Ratio 12.8 (10-20); Calcium 8.7 mg/dl (8.5-10.1); Creatinine Clr Calc Pharmacy 119.9 ml/min; Est GFR (African American) 130.2; Est GFR (Non-African American) 112.3; Magnesium 2.2 mg/dl (1.8-2.4)
[2020-01-18] MEDS: PIPERACILLIN/TAZOBACTAM 3.375 GM in DEXTROSE 5% 100 ML IV SCH ×2 (08:21→16:41)
--- NOTE | 2020-01-18 11:32 | Surgery Progress Note ---
Date of Service January 18, 2020 Assessment & Plan (1) Hidradenitis suppurativa: Patient states he is improving each day WBC 7.8 and patient afebrile Exam is stable to improving overall Continue on a course of abx; ID made recommendations No plans for surgical intervention from our end, continue local wound care We will sign off, Dr. Richardson with [facility] is covering if any questions/concerns as above. pt seen. continues to slowly improve. I believe the area is less firm. continues to have a small amount of white/milky d/c from several of his sinus tracts but this is baseline for him. I see nothing clinically that would require I & D at this time. Dr. Richardson covering for weekend if any quetions or concerns. Admission and Anticipated Discharge Date Admission Date: January 15, 2020 Subjective Patient says he is feeling better. The pain is still present when it is palpated. It is draining some, but it has been draining for a while now. Physical Exam Physical Exam: awake, lying in bed Skin: bilateral buttocks ttp, thickened skin with scarring bilaterally, and some drainage from sinus tracts on right side Results & Data ([facility]) Vital Signs (Past 12 Hours) Vital Signs Temp Pulse Pulse Resp BP Pulse Ox 01/18/20 08:00 36.7 C 68 18 134/82 99 01/18/20 07:28 120 H 01/18/20 03:48 36.7 C 71 16 132/78 99 01/18/20 00:44 74 01/17/20 23:33 36.3 C L 73 16 132/82 100 PG Care Time/CCT Total # of Minutes Spent Total Time Spent with Patient: Total time spent is greater than 50% in coordination of care (as documented) at patient's floor/unit and/or counseling patient: Coding Level of Care Code 93255 Subseq Hosp Care Lvl 2 Diagnoses Hidradenitis suppurativa L73.2
--- NOTE | 2020-01-18 17:11 | Hospitalist Progress Note ---
Date of Service January 18, 2020 Assessment & Plan (1) Hidradenitis suppurativa: (2) Abscess, gluteal: 39yo M with a PMH of paranoid schizophrenia, depression, hidradenitis suppurativa, chronic perirectal abscess, tobacco use disorder and anemia present to the ER with increased drainage and tenderness from the buttock Multiple hospital admission for gluteal and saloni-rectal abscesses with chronic buttock pain. Non compliant with abx therapy in the past Very poor hygiene CT abd/pelvis showed no organized fluid collection is identified to suggest abscess. Received Flagyl in the ER Will continue V Zosyn for now Blood cx positive for cog negative staph not lugdunensis Surgery on board and no plan for surgical intervention and drainage recommended to repeat the CT in 2 to 3 days if worsening to r/o organizing abcess. ID on board recommended 14 days of IV Zosyn or Levaquin and Flagyl PO Wound care on board Continue daily wound care Gram positive bacilli Blood cx positive for cog negative staph not lugdunensis Received IV Vanco x1 ID Consulted and suggested positive blood cx was due to contamination Recommended to d/c IV Vanco repeat blood cx pending Hypokalemia: Possible related to poor oral intake K 3 on admission K 4 today Continue monitor BMP SVT tele monitor showed a brief episode SVT last night Possible related to electrolytes abnormalite Asymptomatic Will keep K above 4 and mg above 2 Continue monitor Paranoid schizophrenia: Follows with Dr Mann Currently on Invega once monthly and Vistaril prn Denies suicidal ideations. Stable Anemia: Multifactorial with history of thalassemia and chronic infection Hgb 10.6today Stable Tobacco use disorder: Counseling on smoking cessation Refused Nicotine patch DVT px pt ambulates CODE STATUS FULL CODE Admission and Anticipated Discharge Date Admission Date: January 15, 2020 Subjective Pt was seen and examined Lying in bed with no distress Pt said that the drainage his buttock seems to improve he said that tenderness is less Denies any chest pain, palpitation, dizziness and SOB Physical Exam Physical Exam: General- No acute distress Head- atraumatic Eyes- PERRL, EOMI, ENT- oropharynx clear Neck- supple, no JVD Lungs- clear to auscultation Heart- regular rhythm; no murmur Abdomen- normal bowel sounds, soft, nontender Extremities- no calf tenderness Neuro- alert, oriented x 3; PERRL, EOMI; no facial palsy; no dysarthria - +sinus tract, buttock induration, + drainage (Underwear soaked ) Skin- warm & dry Results & Data Results & Data ([facility]) Vital Signs (Past 12 Hours) Vital Signs Temp Pulse Pulse Resp BP Pulse Ox 01/18/20 15:36 36.8 C 85 18 129/79 100 01/18/20 12:05 37.3 C 75 18 119/78 100 01/18/20 08:00 36.7 C 68 18 134/82 99 01/18/20 07:28 120 H
[2020-01-19] MEDS: PIPERACILLIN/TAZOBACTAM 3.375 GM in DEXTROSE 5% 100 ML IV SCH ×3 (00:10→15:46)
[2020-01-19] MEDS: NICOTINE POLACRILEX 2 MG GUM MT PRN ×3 (05:23→15:46)
--- NOTE | 2020-01-19 15:24 | Hospitalist Progress Note ---
Date of Service January 19, 2020 Assessment & Plan (1) Hidradenitis suppurativa: (2) Abscess, gluteal: 39yo M with a PMH of paranoid schizophrenia, depression, hidradenitis suppurativa, chronic perirectal abscess, tobacco use disorder and anemia present to the ER with increased drainage and tenderness from the buttock Multiple hospital admission for gluteal and saloni-rectal abscesses with chronic buttock pain. Non compliant with abx therapy in the past Very poor hygiene CT abd/pelvis showed no organized fluid collection is identified to suggest abscess. Received Flagyl in the ER Will continue V Zosyn for now Blood cx positive for cog negative staph not lugdunensis Surgery on board and no plan for surgical intervention and drainage recommended to repeat the CT in 2 to 3 days if worsening to r/o organizing abcess. ID on board recommended 14 days of IV Zosyn or Levaquin and Flagyl PO Wound care on board Continue daily wound care Gram positive bacilli Blood cx positive for cog negative staph not lugdunensis Received IV Vanco x1 ID Consulted and suggested positive blood cx was due to contamination Recommended to d/c IV Vanco repeat blood cx pending Hypokalemia: Possible related to poor oral intake K 3 on admission Potassium was 4 yesterday Continue monitor BMP SVT tele monitor showed a brief episode SVT last night Possible related to electrolytes abnormality Asymptomatic Will keep K above 4 and mg above 2 Continue monitor Paranoid schizophrenia: Follows with Dr Mann Currently on Invega once monthly and Vistaril prn Denies suicidal ideations. Stable Anemia: Multifactorial with history of thalassemia and chronic infection Hgg stable at 10.6 Tobacco use disorder: Counseling on smoking cessation Refused Nicotine patch DVT px pt ambulates CODE STATUS FULL CODE Admission and Anticipated Discharge Date Admission Date: January 15, 2020 Subjective Pt was seen and examined Sitting in bed with no distress Pt has been walking in the hallway making a few laps Denies any chest pain, palpitation and SOB Physical Exam Physical Exam: General- No acute distress Head- atraumatic Eyes- PERRL, EOMI, ENT- oropharynx clear Neck- supple, no JVD Lungs- clear to auscultation Heart- regular rhythm; no murmur Abdomen- normal bowel sounds, soft, nontender Extremities- no calf tenderness Neuro- alert, oriented x 3; PERRL, EOMI; no facial palsy; no dysarthria - +sinus tract, buttock induration, + drainage (Underwear soaked ) Skin- warm & dry Results & Data Results & Data ([facility]) Vital Signs (Past 12 Hours) Vital Signs Temp Pulse Pulse Resp BP Pulse Ox 01/19/20 11:53 36.6 C 86 18 108/71 100 01/19/20 07:36 133 H 01/19/20 07:32 36.8 C 121 H 20 119/83 97 01/19/20 04:55 61 01/19/20 03:39 36.7 C 73 18 136/89 99
[2020-01-19] MEDS: ACETAMINOPHEN 325 MG TAB PO PRN (15:50)
[2020-01-20] MEDS: PIPERACILLIN/TAZOBACTAM 3.375 GM in DEXTROSE 5% 100 ML IV SCH ×2 (00:37→08:14)
[2020-01-20] MEDS: ACETAMINOPHEN 325 MG TAB PO PRN (08:14)
[2020-01-20] MEDS: NICOTINE POLACRILEX 2 MG GUM MT PRN (10:00)
--- NOTE | 2020-01-20 15:21 | Hospitalist Progress Note ---
Date of Service January 20, 2020 Assessment & Plan (1) Hidradenitis suppurativa: (2) Abscess, gluteal: 39yo M with a PMH of paranoid schizophrenia, depression, hidradenitis suppurativa, chronic perirectal abscess, tobacco use disorder and anemia present to the ER with increased drainage and tenderness from the buttock Multiple hospital admission for gluteal and saloni-rectal abscesses with chronic buttock pain. Non compliant with abx therapy in the past Very poor hygiene CT abd/pelvis showed no organized fluid collection is identified to suggest abscess. Received Flagyl in the ER Blood cx positive for cog negative staph not lugdunensis Surgery on board and no plan for surgical intervention and drainage recommended to repeat the CT in 2 to 3 days if worsening to r/o organizing abcess. ID on board recommended 14 days of IV Zosyn or Levaquin and Flagyl PO Has been on day #6 IV Zosyn, pt would like to go home Will transition to PO Flagyl and Levaquin PO to complete a total abx course 14 days Wound care on board Continue daily wound care Follow up with the wound care clinic Gram positive bacilli Blood cx positive for cog negative staph not lugdunensis Received IV Vanco x1 ID Consulted and suggested positive blood cx was due to contamination Recommended to d/c IV Vanco repeat blood cx no growth Hypokalemia: Possible related to poor oral intake K 3 on admission Potassium has been stable Advised pt to increase potassium in diet SVT tele monitor showed a brief episode SVT last night Possible related to electrolytes abnormality Asymptomatic Will keep K above 4 and mg above 2 Stable Paranoid schizophrenia: Follows with Dr Mann Currently on Invega once monthly and Vistaril prn Denies suicidal ideations. Stable Anemia: Multifactorial with history of thalassemia and chronic infection Hgg stable at 10.6 Tobacco use disorder: Counseling on smoking cessation Refused Nicotine patch DVT px pt ambulates CODE STATUS FULL CODE Disposition Discharge home today Admission and Anticipated Discharge Date Admission Date: January 15, 2020 Subjective Pt was seen and examined he has been walking in the hallway He said that he feels fine He would like to go home today to complete the course of the antibiotic Denies any chest pain, palpitation and SOB Physical Exam Physical Exam: General- No acute distress Head- atraumatic Eyes- PERRL, EOMI, ENT- oropharynx clear Neck- supple, no JVD Lungs- clear to auscultation Heart- regular rhythm; no murmur Abdomen- normal bowel sounds, soft, nontender Extremities- no calf tenderness Neuro- alert, oriented x 3; PERRL, EOMI; no facial palsy; no dysarthria - +sinus tract, buttock induration, + drainage has been less Skin- warm & dry Results & Data Results & Data ([facility]) Vital Signs (Past 12 Hours) Vital Signs Temp Pulse Resp BP BP Pulse Ox 01/20/20 14:51 36.4 C L 74 18 125/75 100 01/20/20 11:10 36.3 C L 75 18 108/72 100 01/20/20 07:02 36.5 C 85 18 108/70 99 01/20/20 04:49 36.7 C 54 L 20 114/67 99
--- NOTE | 2020-01-21 09:04 | Discharge Summary ---
Date of Service January 20, 2020 Admission HPI Per Admitting Provider This is a 39yo M with a PMH of paranoid schizophrenia, depression, hidradenitis suppurativa, chronic perirectal abscess, tobacco use, anemia presented to ER for buttock abscess. Pt with h/o hidradenitis and h/o recurrent abscess requiring I&D in past. Pt states 2 weeks ago started with drainage from buttock. He states PCP placed him on Augmentin and prednisone. He states he has been showering and trying to care for buttock area himself. Pt states past 3 days with increased pain to buttocks and reported to ER yesterday evening. He ended up signing out and returned to ER for reported increased anxiety and mental health issues. Currently pt is denying any increased mental health issues. He follows with Dr Mann. Denies suicidal ideations. Denies fever/chills, diaphoresis, N/V/D/C, CLINE, dizziness, syncope, vision changes, neck pain, CP, SOB, orthopnea, palpitations, cough, sore throat, rhinorrhea, abdominal pain, paresthesias, weakness, extremity edema, rashes, urinary symptoms. Initial ER visit pt found to have hypokalemia at 2.4, WBC:15 Pt has received total 40meq K IV and 40meq po with repeat K: 2.8 [address]0. Initial [address] abd/pelvis with concern for cellulitis buttock and possible small abscess. Pt was given Flagyl in ER. Admission Exam Per Admitting Provider General: no distress, WDWN Head: normocephalic, atraumatic Eyes: conjunctiva non-injected, anicteric ENT: normal inspection external ears, nose, mucous membranes moist Neck: supple, trachea midline Lungs: clear, no respiratory distress, no wheezing/rhonchi/rales CV: RRR, no murmur, no pretibial edema Abd: normal BS, soft, non-tender Buttock: +thickened skin bilateral buttocks lateral to gluteal cleft with tenderness to palpation, +tract noted to right buttock, no purulent drainage noted Ext: no cyanosis, no calf tenderness Neuro: A&O x 3, no focal deficits noted, normal affect, cooperative, no signs of anxiety Skin: warm, dry, as above in buttock Principal Diagnosis Hidradenitis suppurativa: Abscess, gluteal Gram positive bacilli Hypokalemia SVT Paranoid schizophrenia: Anemia: Tobacco use disorder: Discharge Exam General- No acute distress Head- atraumatic Eyes- PERRL, EOMI, ENT- oropharynx clear Neck- supple, no JVD Lungs- clear to auscultation Heart- regular rhythm; no murmur Abdomen- normal bowel sounds, soft, nontender Extremities- no calf tenderness Neuro- alert, oriented x 3; PERRL, EOMI; no facial palsy; no dysarthria - +sinus tract, buttock induration, + drainage has been less Skin- warm & dry Discharge Data Allergies Allergy/AdvReac Type Severity Reaction Status Date / Time Penicillins Allergy Severe Rash Verified 01/15/20 01:52 Consultations 01/15/20 07:36 ED Decision to Admit Stat 01/15/20 10:26 Consult General Surgery Routine 01/16/20 11:44 Consult Infectious Diseases Routine Hospital Course (1) Hidradenitis suppurativa: This is a 39yo M with a PMH of paranoid schizophrenia, depression, hidradenitis suppurativa, chronic perirectal abscess, tobacco use, anemia presented to ER for buttock abscess. Pt with h/o hidradenitis and h/o recurrent abscess requiring I&D in past. Pt states 2 weeks ago started with drainage from buttock. He states PCP placed him on Augmentin and prednisone. past 3 days with increased pain. Denies fever/chills In ER pt afebrile, P: 120's, BP: 152/85, R: 18, 98% on RA. WBC: 15. CT ABD/PELVIS: 1. There is dermal thickening with mild surrounding induration involving the gluteal soft tissues along the median gluteal crease. The appearance is typical for synovitis and clinical correlation will be required. 2. No organized fluid collection is identified to suggest abscess. 3. The pelvic viscera is normal as imaged. -Blood cultures pending -In ER given Flagyl 500mg IV -Will switch to Zosyn IV -General surgery consult -CBC, BMP in am (2) Abscess, gluteal: 39yo M with a PMH of paranoid schizophrenia, depression, hidradenitis suppurativa, chronic perirectal abscess, tobacco use disorder and anemia present to the ER with increased drainage and tenderness from the buttock Multiple hospital admission for gluteal and saloni-rectal abscesses with chronic buttock pain. Non compliant with abx therapy in the past Very poor hygiene CT abd/pelvis showed no organized fluid collection is identified to suggest abscess. Received Flagyl in the ER Blood cx positive for cog negative staph not lugdunensis Surgery on board and no plan for surgical intervention and drainage recommended to repeat the CT in 2 to 3 days if worsening to r/o organizing abcess. ID on board recommended 14 days of IV Zosyn or Levaquin and Flagyl PO Has been on day #6 IV Zosyn, pt would like to go home Will transition to PO Flagyl and Levaquin PO to complete a total abx course 14 days Wound care on board Continue daily wound care Follow up with the wound care clinic Gram positive bacilli Blood cx positive for cog negative staph not lugdunensis Received IV Vanco x1 ID Consulted and suggested positive blood cx was due to contamination Recommended to d/c IV Vanco repeat blood cx no growth Hypokalemia: Possible related to poor oral intake K 3 on admission Potassium has been stable Advised pt to increase potassium in diet SVT tele monitor showed a brief episode SVT last night Possible related to electrolytes abnormality Asymptomatic Will keep K above 4 and mg above 2 Stable Paranoid schizophrenia: Follows with Dr Mann Currently on Invega once monthly and Vistaril prn Denies suicidal ideations. Stable Anemia: Multifactorial with history of thalassemia and chronic infection Hgg stable at 10.6 Tobacco use disorder: Counseling on smoking cessation Refused Nicotine patch DVT px pt ambulates CODE STATUS FULL CODE Disposition Discharge home today Total Time Total Time Spent Total Time Spent (In Minutes): 35 minutes Total Time Includes: Examination of the Patient, Discharge Planning, Medication Reconciliation, Communication With Other Providers and Other Discharge Plan Discharge Items Patient Disposition: Home - Self-Care Reason For Visit: PERIRECTAL ABCESS Discharge Diagnosis: Hidradenitis suppurativa: Abscess, gluteal: Hypokalemia: Anemia: Tobacco use disorder: Activity: Resume your previous activity Non-emergency contact: Primary Care Provider Call non-emergency contact if: your temperature is above 101 Follow-up/Referrals: Kenneth Agrawal DO [Primary Care Provider] - Diet: Regular Addtl Attending Provider Instructions: Follow up with your primary care provider Dr. Damatteo in 1 week (Office will call you for the appointment) Follow up with the wound care clinic Continue daily wound care Check BMP in 1 week to monitor your electrolytes Increase potassium supplement in your diet Complete the course of the antibiotic with Levaquin and Flagyl Pending Studies at Discharge: No Stand-Alone Forms: My [facility], Smoking Cessation, Suicide Prevention Resources Medications and DC Order Prescriptions: New levofloxacin [Levaquin] 500 mg tablet 500 mg PO DAILY 8 Days Qty: 8 RF: 0 metronidazole [Flagyl] 500 mg tablet 500 mg PO Q8H 8 Days Qty: 24 RF: 0 Continued hydroxyzine pamoate [Vistaril] 50 mg capsule 50 mg PO PM PRN (Reason: Anxiety) RF: 0 Invega Sustenna 117 mg/0.75 mL syringe 0 mg IM MO RF: 0 Discharge Orders: Discharge Order (Routine); Ordered 01/20/20 Ordered By: Vandana Witt Admission Data Admit Date/Time: 01/15/20 08:28 Attending Provider: Vandana Witt Admit Provider: Sidney Brady Primary Care Provider: Kenneth Agrawal Other Providers: Sidney Brady ; Francis Ro ; Ashish Peters ; Maria E Bianchi ; Donnie Rooney I. ; Apolinar Gage II ; Nighat Skaggs ; Hemal Kelly Other Interventions: Discharge Summary Assessment (RN) Last Done: 01/20/20 15:41
== END 2020-01-20 16:53 | disposition home or self-care (01) | DRG 603 ==
LOC: ED 01:32 → SUATTDRO 08:28 → 2W 08:28

== ENCOUNTER 2020-01-23 21:18 | Inpatient (IN) ==
--- NOTE | 2020-01-23 22:17 | Emergency Department Note ---
History of Present Illness General Chief complaint: Mental Health Evaluation Stated complaint: MENTAL HEALTH EVAL Time Seen by Provider: 01/23/20 21:59 Source: patient History of Present Illness Provider complaint: Increased paranoia Onset (ago): week(s) Location: head Severity: moderate Pain Consistency: + intermittent Maximum Pain Intensity: 4 Quality: + other (Paranoia) Relieved By: + none Associated symptoms: no chest pain, no fever/chills, no headaches, no nausea/vomiting and no shortness of breath This is a 39-year-old male who presents with increased paranoia. He the patient has a history of paranoid schizophrenia. He states that he spoke to the licensing worker today and they referred him here. He does feel like he might need inpatient psychiatric care. He has increased paranoia. He will specify exactly what he is feeling. He denies any suicidal or homicidal ideation. He does state that he feels like he might be in a situation where he might have to defen d himself but has not felt like that since 2018. He is not hearing voices or having any visual hallucinations. He has been compliant with his medication regime. He does not have any physical complaints such as chest pain, fever, shortness of breath, cough or COVID symptoms, abdominal pain or diarrhea. He denies any drug or alcohol use. Home Medications Home Medications Medication Instructions Recorded Confirmed Type Invega Sustenna 0 mg IM MO 10/23/19 01/23/20 History hydroxyzine pamoate [Vistaril] 50 mg PO PM PRN 10/23/19 01/23/20 History levofloxacin 500 mg PO DAILY 01/23/20 01/23/20 History metronidazole [Flagyl] 500 mg PO TID 01/23/20 01/23/20 History Allergies Allergy/AdvReac Type Severity Reaction Status Date / Time Penicillins Allergy Severe Rash Verified 01/15/20 01:52 Past Med/Surg History Medical History Depression Paranoid schizophrenia Paranoid schizophrenia Perianal abscess Perirectal abscess Tobacco use disorder Surgical History History of incision and drainage Family History Other Cancer Denies family history of Schizophrenia Social History Smoking Status: Current every day smoker Tobacco Type: Cigarettes packs per day: 0.5; Cigarettes Per Day: 10; Second Hand Exposure: Yes; Hx Alcohol Use: No Hx Substance Use: No Preferred Language: Vincentian Communication Ability: Effective Die Designer Required: No Beliefs That Will Affect Care: None marital status: Single Current Living Situation: Family Current Living Situation Comment: pt reports currently living with his parents current occupational status: disabled Feels Safe at Home: Yes during the past year weight has: remained stable Review of Systems See HPI for pertinent positives & negatives. and A total of 10 systems reviewed and were otherwise negative Physical Exam Vital Signs Vital Signs - 24 hr 01/23/20 21:19 01/23/20 23:13 Temperature 37.2 C Temperature Source Oral Pulse Rate 118 H Pulse Rate [Finger] 112 H Respiratory Rate 18 18 Respiratory Effort / Characteristics Non-Labored Respiratory Depth Normal Respiratory Pattern Regular Blood Pressure 95/64 L Blood Pressure [Right Arm] 110/72 Blood Pressure Mean 74 Blood Pressure Mean [Right Arm] 84 Pulse Oximetry 98 99 Oxygen Delivery Method Room Air Room Air Sepsis Recent Fever Within 48 Hours No Sepsis New/Unexplained Change in Mental Status No Sepsis Action Taken by Nursing No Action Required Constitutional: Vital signs reviewed. Eyes: Pupils are equal round reactive to light. Conjunctiva are noninjected. ENT: Pharynx is clear without erythema or exudate. Mucous membranes are moist. Neck supple without meningeal signs. Respiratory: Clear to auscultation bilaterally. Breath sounds are equal bilaterally. Cardiovascular: Regular rate and rhythm. No rubs or gallops. GI: Soft, nondistended and nontender. Bowel sounds are present. Musculoskeletal: No peripheral edema. No lower extremity tenderness. Integumentary: No cyanosis. or jaundice. Neurological: The patient is awake and alert. No focal deficits. Psychiatric: Anxious. Medical Decision Making Differential Diagnosis Paranoid schizophrenia, anxiety, drug abuse, alcohol abuse, metabolic derangement Medical Records Attestation: I reviewed the patient's medical records. The patient was just recently admitted to the hospital for a gluteal abscess among other issues. He was discharged last week. Home Medications Current Medication List: was personally reviewed by me Laboratory Data Attestation: I reviewed the patient's lab results. Result diagrams: 01/23/20 22:28 01/23/20 22:28 Lab Results 01/23/20 01/23/20 01/23/20 Range/Units 21:40 21:40 22:28 WBC 10.87 H (4.8-10.8) K/uL RBC 4.44 L (4.7-6.1) M/uL Hgb 12.6 L (14.0-18.0) g/dL Hct 38.2 L (42-52) % MCV 86.0 (80-100) fL MCH 28.4 (25-34) pg MCHC 33.0 (32-36) g/dL RDW Std Deviation 54.3 H (36.4-46.3) fL RDW Coeff of Fausto 17.3 H (11.5-14.5) % Plt Count 470 H (130-400) K/uL MPV 8.4 (7.4-10.4) fL Immature Gran % (Auto) 0.2 % Neut % (Auto) 65.9 % Lymph % (Auto) 26.4 % [place] % (Auto) 5.7 % Eos % (Auto) 1.6 % Baso % (Auto) 0.2 % Neut # (Auto) 7.17 H (1.4-6.5) K/uL Lymph # (Auto) 2.87 (1.2-3.4) K/uL [place] # (Auto) 0.62 H (0.11-0.59) K/uL Eos # (Auto) 0.17 (0-0.5) K/uL Baso # (Auto) 0.02 (0-0.2) K/uL Immature Gran # (Auto) 0.02 (0.00-0.02) K/uL Sodium (136-145) mmol/L Potassium (3.5-5.1) mmol/L Chloride (98-107) mmol/L Carbon Dioxide (21-32) mmol/L Anion Gap (3-11) BUN (7-18) mg/dl Creatinine (0.6-1.4) mg/dl Est Cr Clr Drug Dosing ml/min Est GFR ( Amer) Est GFR (Non-Af Amer) BUN/Creatinine Ratio (10-20) Glucose (70-99) mg/dl Calcium (8.5-10.1) mg/dl Total Bilirubin (0.2-1) mg/dl AST (15-37) U/L ALT (12-78) U/L Alkaline Phosphatase (45-117) U/L Total Protein (6.4-8.2) gm/dl Albumin (3.4-5.0) gm/dl Globulin (2.5-4.0) gm/dl Albumin/Globulin Ratio (0.9-2) TSH (0.300-4.500) uIu/ml Urine Color Yellow Urine Appearance Clear (Clear) Urine pH 5.0 (4.5-7.5) Ur Specific [place] 1.007 (1.000-1.030) Urine Protein Negative (Negative) Urine Glucose (UA) Negative (Negative) Urine Ketones Negative (Negative) Urine Blood Negative (Negative) Urine Nitrite Negative (Negative) Urine Bilirubin Negative (Negative) Urine Urobilinogen Negative (Negative) Ur Leukocyte Esterase Negative (Negative) Salicylates (2.8-20) mg/dl Urine Opiates Screen Neg (Neg) Ur Methadone, Qual Neg (Neg) Acetaminophen (10-30) ug/ml Urine Barbiturates Neg (Neg) Ur Phencyclidine (PCP) Neg (Neg) U Amphetamin/Meth Scrn Neg (Neg) MDMA (Ecstasy) Screen Neg (Neg) U Benzodiazepines Scrn Neg (Neg) Ur Cocaine Metabolite Neg (Neg) U Marijuana (THC) Screen Neg (Neg) Ethyl Alcohol mg/dL (0-3) mg/dl 01/23/20 01/23/20 01/23/20 Range/Units 22:28 22:28 22:28 WBC (4.8-10.8) K/uL RBC (4.7-6.1) M/uL Hgb (14.0-18.0) g/dL Hct (42-52) % MCV (80-100) fL MCH (25-34) pg MCHC (32-36) g/dL RDW Std Deviation (36.4-46.3) fL RDW Coeff of Fausto (11.5-14.5) % Plt Count (130-400) K/uL MPV (7.4-10.4) fL Immature Gran % (Auto) % Neut % (Auto) % Lymph % (Auto) % [place] % (Auto) % Eos % (Auto) % Baso % (Auto) % Neut # (Auto) (1.4-6.5) K/uL Lymph # (Auto) (1.2-3.4) K/uL [place] # (Auto) (0.11-0.59) K/uL Eos # (Auto) (0-0.5) K/uL Baso # (Auto) (0-0.2) K/uL Immature Gran # (Auto) (0.00-0.02) K/uL Sodium 137 (136-145) mmol/L Potassium 3.7 (3.5-5.1) mmol/L Chloride 104 (98-107) mmol/L Carbon Dioxide 25 (21-32) mmol/L Anion Gap 8.0 (3-11) BUN 6 L (7-18) mg/dl Creatinine 1.04 (0.6-1.4) mg/dl Est Cr Clr Drug Dosing 84.9 ml/min Est GFR ( Amer) 103.6 Est GFR (Non-Af Amer) 89.4 BUN/Creatinine Ratio 6.2 L (10-20) Glucose 115 H (70-99) mg/dl Calcium 9.2 (8.5-10.1) mg/dl Total Bilirubin 0.3 (0.2-1) mg/dl AST 15 (15-37) U/L ALT 21 (12-78) U/L Alkaline Phosphatase 97 (45-117) U/L Total Protein 8.8 H (6.4-8.2) gm/dl Albumin 3.4 (3.4-5.0) gm/dl Globulin 5.4 H (2.5-4.0) gm/dl Albumin/Globulin Ratio 0.6 L (0.9-2) TSH 1.750 (0.300-4.500) uIu/ml Urine Color Urine Appearance (Clear) Urine pH (4.5-7.5) Ur Specific [place] (1.000-1.030) Urine Protein (Negative) Urine Glucose (UA) (Negative) Urine Ketones (Negative) Urine Blood (Negative) Urine Nitrite (Negative) Urine Bilirubin (Negative) Urine Urobilinogen (Negative) Ur Leukocyte Esterase (Negative) Salicylates 5.1 (2.8-20) mg/dl Urine Opiates Screen (Neg) Ur Methadone, Qual (Neg) Acetaminophen < 2 L (10-30) ug/ml Urine Barbiturates (Neg) Ur Phencyclidine (PCP) (Neg) U Amphetamin/Meth Scrn (Neg) MDMA (Ecstasy) Screen (Neg) U Benzodiazepines Scrn (Neg) Ur Cocaine Metabolite (Neg) U Marijuana (THC) Screen (Neg) Ethyl Alcohol mg/dL < 3.0 (0-3) mg/dl Blood Pressure Blood Pressure Findings: Elevated blood pressure Blood Pressure Disposition: Referred to patients primary care provider KRYSTEN Narrative I did evaluate the patient as noted above. The patient is presenting for mental health evaluation. He states that he wishes to be hospitalized for his paranoid schizophrenia. He has no specific complaints. He denies any homicidal or suicidal ideation. He is not having any visual or auditory hallucinations. I did order a urine analysis. He has no evidence of UTI. I did order and review the patient's blood work as noted in the electronic medical record. His white count is slightly elevated at 10.8. This is a nonspecific finding. He is not febrile here. Electrolytes are unremarkable. Toxicology screen is negative. I did medically clear the patient. He was evaluated by the mental health case advocate as well as the delegate from [facility]. The case was discussed with the on- call psychiatrist who accepted the patient for hospitalization in the [facility] mental health unit. Impression & Plan Paranoid schizophrenia Discharge Plan Visit Data Chief Complaint: Mental Health Evaluation Stated Complaint: MENTAL HEALTH EVAL ED Provider: Praveen Sun Discharge Problem: Paranoid schizophrenia Patient Disposition: Admitted As Inpatient Forms Stand Alone Forms: [facility], Suicide Prevention Resources Prescriptions Prescriptions: No Action metronidazole [Flagyl] 500 mg tablet 500 mg PO TID RF: 0 levofloxacin 500 mg tablet 500 mg PO DAILY RF: 0 hydroxyzine pamoate [Vistaril] 50 mg capsule 50 mg PO PM PRN (Reason: Anxiety) RF: 0 Invega Sustenna 117 mg/0.75 mL syringe 0 mg IM MO RF: 0 Referrals Referrals: Kenneth Agrawal DO [Primary Care Provider] -
[2020-01-23 22:26] LABS: Appearance Urine Clear (Clear); Bilirubin Urine Negative (Negative); Blood Urine Negative (Negative); Color Urine Yellow; Glucose Urine UA Negative (Negative); Ketones Urine Negative (Negative); Leukocyte Esterase Urine Negative (Negative); Nitrite Urine Negative (Negative); Protein Urine Negative (Negative); Specific Gravity Urine 1.007 (1.000-1.030); Urobilinogen Urine Negative (Negative)
[2020-01-23 22:43] LABS: Basophils # (auto) 0.02 K/uL (0-0.2); Basophils % (auto) 0.2 %; Eosinophils # (auto) 0.17 K/uL (0-0.5); Eosinophils % (auto) 1.6 %; Hematocrit (blood only) 38.2 % (42-52); Hemoglobin 12.6 g/dL (14.0-18.0); Immature Granulocytes # (auto) 0.02 K/uL (0.00-0.02); Immature Granulocytes % (auto) 0.2 %; Lymphocytes # (auto) 2.87 K/uL (1.2-3.4); Lymphocytes % (auto) 26.4 %; Mean Corpuscular Hemoglobin 28.4 pg (25-34); Mean Platelet Volume 8.4 fL (7.4-10.4); Monocytes # (auto) 0.62 K/uL (0.11-0.59); Monocytes % (auto) 5.7 %; Neutrophils # (auto) 7.17 K/uL (1.4-6.5); Neutrophils % (auto) 65.9 %; Platelet Count 470 K/uL (130-400); RDW Coefficient of Variation 17.3 % (11.5-14.5); RDW Standard Deviation 54.3 fL (36.4-46.3); Red Blood Count 4.44 M/uL (4.7-6.1); White Blood Count 10.87 K/uL (4.8-10.8)
[2020-01-23 22:48] LABS: Amphetamines+Metham, Urine Neg (Neg); Barbiturates, Urine Neg (Neg); Benzodiazepine, Urine Neg (Neg); Cocaine, Urine Neg (Neg); MDMA (Ecstacy), Urine Neg (Neg); Methadone, Urine Neg (Neg); Opiate, Urine Neg (Neg); Phencyclidine, Urine Neg (Neg)
[2020-01-23 23:00] LABS: Albumin Level 3.4 gm/dl (3.4-5.0); BUN Creatinine Ratio 6.2 (10-20); Calcium 9.2 mg/dl (8.5-10.1); Creatinine Clr Calc Pharmacy 84.9 ml/min; Est GFR (African American) 103.6; Est GFR (Non-African American) 89.4; Potassium 3.7 mmol/L (3.5-5.1)
[2020-01-23 23:01] LABS: Acetaminophen < 2 ug/ml (10-30)
[2020-01-23 23:02] LABS: Salicylate 5.1 mg/dl (2.8-20)
[2020-01-23 23:11] LABS: Albumin Globulin Ratio 0.6 (0.9-2); Bilirubin,Total 0.3 mg/dl (0.2-1); Globulin 5.4 gm/dl (2.5-4.0); Thyroid Stimulating Hormone 1.75 uIu/ml (0.300-4.500); Total Protein 8.8 gm/dl (6.4-8.2)
[2020-01-24] MEDS ORDERED: ACETAMINOPHEN 325 MG TAB PO PRN (01:44)
[2020-01-24] MEDS ORDERED: BISMUTH SUBSALICYLATE PER ML OMNICELL CHARGE PO PRN (01:44)
[2020-01-24] MEDS ORDERED: MAGNESIUM HYDROXIDE SUSP 30 ML UDC PO PRN (01:44)
[2020-01-24] MEDS ORDERED: SODIUM CHLORIDE 0.65% NA SOLN 45 ML (OCEAN) PRN (01:44)
[2020-01-24] MEDS ORDERED: ALUMINUM/MAGNESIUM SUSP 30 ML UDC PO PRN (01:44)
[2020-01-24] MEDS: NICOTINE 21 MG/24 HR TDSY TD SCH (08:58)
[2020-01-24] MEDS: metroNIDAZOLE 500 MG TAB PO SCH ×4 (09:00→20:27)
--- NOTE | 2020-01-24 10:34 | History & Physical ---
Date of Service January 24, 2020 Impression / Recommendations Impression 39-year-old single male who lives with his parents in [place], has a history of schizophrenia and depression as well as a chronic perirectal abscess with multiple medical admissions for the same, who presented on referral from the [facility] for worsening paranoia and depression with a significant weight loss and inability to contract for safety outside of the hospital. He is disorganized with thought blocking and severe depressive symptoms, and inpatient treatment is medically necessary. He lost case management services recently, and is unable to provide for his own needs without the care and assistance of others. We started him on Invega Sustenna in 06/2019 when he was seen on the consult service, and he might benefit from a higher dose when he is next due for an injection. He was previously on escitalopram with good response, and for unknown reasons it was discontinued sometime in the past 6 months, possibly accidentally when he transitioned outpatient psychiatric services. We will resume it as he responded well to it in the past and anxiety and depressive symptoms worsened when it was stopped. (1) Paranoid schizophrenia: 01/23 -continue Invega Sustenna, recommend higher dose (156 mg IM) when due for next injection on 02/19/2020, and could also give next injection early. Coordinate care with Benita Sanders. He will need follow-up with a psychiatrist, current psychiatrist is out on leave so we will need to identify who he will be seeing in the interim. -Fasting lipid profile and glucose last done 02/2019; glucose 87, FLP notable for triglycerides 285. Will order fasting labs for tomorrow for monitoring on an atypical antipsychotic. -Coordinate care with Barbara HERNANDEZ with [facility]. Apparently his case was closed as he got a new phone number and lost contact with her, but he would like to resume services, so we will assist him to do so. He would benefit from increased supports in the community, so we will explore psych rehab or mobile services. -Family meeting with parents. -Continue voluntary hospitalization. (2) Depression: 01/23 -patient previously had good response to escitalopram, and mood and anxiety symptoms worsened when it was discontinued sometime in the past 6 months. He is not sure when or why it was stopped, possibly lost when he transitioned care from [facility] to [facility]. We will resume 10 mg daily x 2 days, and then increase to 20 mg daily, his previous dose. -Courage patient to be out of bed and participating in groups and therapy. His sleep schedule is erratic, and he has no daily structure. Explore ways to increase structure at home. -Explore whether patient would benefit from individual psychotherapy. (3) Abscess, gluteal: 01/23 -reviewed hospitalist records from recent inpatient treatment, discharged 01/20/2020 on metronidazole and levofloxacin, last dose 01/30/2020. -Medically necessary private room due to active medical condition/wound requiring care. -Wound care consult. (4) Tobacco use disorder: 01/23 -smoking cessation education offered, reviewed risks of ongoing smoking including impaired wound healing, given chronic abscess. Offered nicotine patch and gum for cravings, and follow-up with PCP and psychiatrist. Risk Factors Assessment Male: Yes : No Do You Have Access To A Gun?: No Health Problems: Yes Mental Health Diagnoses: Yes Substance Use Disorders: No Previous Psychiatric Hospitalization: Yes Hopelessness: Yes Smoker: Yes Protective Factors Assessment : No Responsible for Young Children: No Employed: No (On disability) Stable Relationships: No Supportive Family: Yes Good Rapport with Provider: No Psychiatric History Identifying Data KIERA STANTON is a 39-year-old M who currently lives in [place] with his parents, has a history of schizophrenia, depression, and anxiety, and was admitted on 01/24/20 01:34 on a 201 voluntary commitment for psychosis. Chief Complaint "Uh, felt like a build up, magali ground zero I guess". History of Present Illness Nabila is well-known to our service from multiple previous episodes of care, as he is frequently admitted to the hospitalist service for IV antibiotics for his chronic perirectal abscess, and we have been involved in his care on our consultation service. We last saw him in 11/10/2019, and also during his medical admission May-June 2019, at which time he was started on Invega Sustenna. He now follows with Dr. Mikala Mann at [facility], and received Invega Sustenna 117 mg on 01/22 2020. He presented to the ER overnight on referral from the [facility] crisis center, after he presented there reporting worsening paranoia over the past few weeks, increased stress, and depressed mood. He reported decreased appetite with weight loss, poor sleep, staying awake for 24-36 hours and then sleeping for 8 hours. He was unable to engage in safety planning, and requested inpatient treatment. He was just discharged from the hospitalist service 01/20/2020 after a 5-day hospitalization for draining abscess. He was discharged on levofloxacin 500 mg daily and metronidazole 500 mg every 8 hours x8 days. Admission labs notable for WBC 10.87, RBC 4.44, hemoglobin 12.6, hematocrit 38.2%, platelets 470; glucose 115, TSH 1.750, negative UA and UDS. He signed in voluntarily for treatment. On my assessment, he reports mood has worsened over the past couple of months in the context of moving from the [facility] back to parents' house, although reports feeling supported by parents. Feels stressed and overwhelmed, "A lot of different situations came together," feels unable to cope or manage his difficulties. Was discharged from case management as he missed appts due to COVID and then got a new cell number so missed calls, then received a letter his case was closed, but wants to have case management services. Doesn't know what happened to the LExapro he was on earlier this year, unsure if or why it was stopped. Decreased appetite with 50lb weight loss, poor sleep, and increased anxiety. Spending his time on his computer, listening to music, and "lots of time lying on the floor or bed," as it is uncomfortable to sit d/t abscess. Feels paranoid and has difficulty relaying his thoughts. Wants to work on "talking, sorting my thoughts out," and wants help getting outpatient services. Past Psychiatric History Current Psychiatric Diagnosis: Paranoid schizophrenia, anxiety, depression Outpatient Services: Psychiatry: Dr. Mikala Mann at [facility]: Barbara with [facility] Previous Psych Admissions: [facility]: [id number]: 07/2009, 09/2012, 02/2019 Numerous psychiatric consultations during medical admissions in the past Do You Have Access To A Gun?: No Past Medication Trials: Includes but not limited to: 1. Clozapine 2. Zyprexa 3. Lexapro 4. Hydroxyzine 5. Invega Sustenna -started 06/2019 on the consult service 6. Quetiapine -2018 Allergies Allergy/AdvReac Type Severity Reaction Status Date / Time Penicillins Allergy Severe Rash Verified 01/15/20 01:52 Home Medications Home Medications Medication Instructions Recorded Confirmed Type Mihir Sustenna 0 mg IM MO 10/23/19 01/23/20 History hydroxyzine pamoate [Vistaril] 50 mg PO PM PRN 10/23/19 01/23/20 History levofloxacin 500 mg PO DAILY 01/23/20 01/23/20 History metronidazole [Flagyl] 500 mg PO TID 01/23/20 01/23/20 History Family History Family History of: Doesn't Know Alcohol History Hx of Alcohol Use Over the Past 12 Months: No Smoking Use Have You Smoked or Used Tobacco Products in the Last 30 Days: Yes tobacco type: cigarettes Smoking Status: Current every day smoker Smoking packs per day: 0.75 Substance History Hx of Prescription Med Misuse Over the Past 12 Months: No Hx of Over the Counter Med Misuse Over the Past 12 Months: No Hx of Inhalent Misuse Over the Past 12 Months: No Hx of Organic Substance Use Over the Past 12 Months: No Hx of Illegal Substances/Street Drug Use Over Past 12 Months: No Problems as a Result of Past Substance Use: None Identified Personal History Living Arrangements: Home Living Arrangements Comments: With parents in [place]. [facility] the [facility] Highest Grade Completed: High School Graduate 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: Disabled Number Of Children: 0 Beliefs That Will Affect Care: None Current Legal Problems: No Hx Legal Problems: No Hx Traumatic Life Events: No Patient History Medical History Depression Paranoid schizophrenia Paranoid schizophrenia Perianal abscess Perirectal abscess Tobacco use disorder Surgical History History of incision and drainage Family History Other Cancer Denies family history of Schizophrenia Social History Smoking Status: Current every day smoker Tobacco Type: Cigarettes packs per day: 0.5; Cigarettes Per Day: 10; Second Hand Exposure: Yes; Hx Alcohol Use: No Hx Substance Use: No Preferred Language: Sinhala Communication Ability: Effective Electronic Device Monitor Required: No Beliefs That Will Affect Care: None marital status: Single Current Living Situation: Family Current Living Situation Comment: pt reports currently living with his parents current occupational status: disabled Feels Safe at Home: Yes during the past year weight has: remained stable Review of Systems Review of Systems: All systems reviewed & are unremarkable except as noted in Subjective Physical Exam Psychiatric: Orientation: alert and cooperative Apperance: appropriately dressed unkempt, malodorous. Thin, appears older than stated age. Eye Contact: + fair eye contact Motor Behavior: no abnormal motor movements minimal, halting Affect: + blunted affect Mood: + depressed mood and + anxious mood Thought Process: + thought blocking disorganized Thought Content: + paranoid paucity of thought content Suicidal Thoughts: denies suicidal thoughts Homicidal Thoughts: denies homicidal thoughts Hallucinations: no auditory hallucinations and no visual hallucinations Cognition: language grossly intact; + recent memory not intact and + attention not intact Estimated Intelligence: consistent with education level Insight: + impaired insight Judgement: + impaired judgement Vital Signs (Past 24 Hours): Last Vital Signs Temp 36.6 C 01/24/20 06:37 Pulse 89 01/24/20 06:38 Resp 18 01/24/20 06:37 BP 104/72 01/24/20 06:38 Pulse Ox 96 01/24/20 03:10 Exam Statement: A physical exam was performed in the ER prior to admission to the unit by Dr. Sun. I accept that physical as correct/medical clearance for the inpatient physical exam. Results & Data ([facility]) Laboratory Results Laboratory Results - last 24 hr 01/23/20 01/23/20 01/23/20 21:40 21:40 22:28 WBC 10.87 H RBC 4.44 L Hgb 12.6 L Hct 38.2 L MCV 86.0 MCH 28.4 MCHC 33.0 RDW Std Deviation 54.3 H RDW Coeff of Fausto 17.3 H Plt Count 470 H MPV 8.4 Immature Gran % (Auto) 0.2 Neut % (Auto) 65.9 Lymph % (Auto) 26.4 [place] % (Auto) 5.7 Eos % (Auto) 1.6 Baso % (Auto) 0.2 Neut # (Auto) 7.17 H Lymph # (Auto) 2.87 [place] # (Auto) 0.62 H Eos # (Auto) 0.17 Baso # (Auto) 0.02 Immature Gran # (Auto) 0.02 Sodium Potassium Chloride Carbon Dioxide Anion Gap BUN Creatinine Est Cr Clr Drug Dosing Est GFR ( Amer) Est GFR (Non-Af Amer) BUN/Creatinine Ratio Glucose Calcium Total Bilirubin AST ALT Alkaline Phosphatase Total Protein Albumin Globulin Albumin/Globulin Ratio TSH Urine Color Yellow Urine Appearance Clear Urine pH 5.0 Ur Specific Barry 1.007 Urine Protein Negative Urine Glucose (UA) Negative Urine Ketones Negative Urine Blood Negative Urine Nitrite Negative Urine Bilirubin Negative Urine Urobilinogen Negative Ur Leukocyte Esterase Negative Salicylates Urine Opiates Screen Neg Ur Methadone, Qual Neg Acetaminophen Urine Barbiturates Neg Ur Phencyclidine (PCP) Neg U Amphetamin/Meth Scrn Neg MDMA (Ecstasy) Screen Neg U Benzodiazepines Scrn Neg Ur Cocaine Metabolite Neg U Marijuana (THC) Screen Neg Ethyl Alcohol mg/dL 01/23/20 01/23/20 01/23/20 22:28 22:28 22:28 WBC RBC Hgb Hct MCV MCH MCHC RDW Std Deviation RDW Coeff of Fausto Plt Count MPV Immature Gran % (Auto) Neut % (Auto) Lymph % (Auto) [place] % (Auto) Eos % (Auto) Baso % (Auto) Neut # (Auto) Lymph # (Auto) [place] # (Auto) Eos # (Auto) Baso # (Auto) Immature Gran # (Auto) Sodium 137 Potassium 3.7 Chloride 104 Carbon Dioxide 25 Anion Gap 8.0 BUN 6 L Creatinine 1.04 Est Cr Clr Drug Dosing 84.9 Est GFR ( Amer) 103.6 Est GFR (Non-Af Amer) 89.4 BUN/Creatinine Ratio 6.2 L Glucose 115 H Calcium 9.2 Total Bilirubin 0.3 AST 15 ALT 21 Alkaline Phosphatase 97 Total Protein 8.8 H Albumin 3.4 Globulin 5.4 H Albumin/Globulin Ratio 0.6 L TSH 1.750 Urine Color Urine Appearance Urine pH Ur Specific Barry Urine Protein Urine Glucose (UA) Urine Ketones Urine Blood Urine Nitrite Urine Bilirubin Urine Urobilinogen Ur Leukocyte Esterase Salicylates 5.1 Urine Opiates Screen Ur Methadone, Qual Acetaminophen < 2 L Urine Barbiturates Ur Phencyclidine (PCP) U Amphetamin/Meth Scrn MDMA (Ecstasy) Screen U Benzodiazepines Scrn Ur Cocaine Metabolite U Marijuana (THC) Screen Ethyl Alcohol mg/dL < 3.0 Current Inpatient Medications Current Inpatient Medications: Current Inpatient Medications Acetaminophen (Acetaminophen 325 Mg Tab) 650 mg PO Q4H PRN PRN Reason: Headache or Minor Fever Stop: 02/23/20 01:43 Al Hydrox/Mg Hydrox/Simethicone (Aluminum/Magnesium Susp 30 Ml Udc) 30 ml PO Q4H PRN PRN Reason: GI Upset Stop: 02/23/20 01:43 Bismuth Subsalicylate (Bismuth Subsalicylate Per Ml Omnicell Charge) 15 ml PO PRN PRN PRN Reason: Loose Stool Stop: 02/23/20 01:43 Hydroxyzine HCl (Hydroxyzine Hcl 25 Mg Tab) 50 mg PO HSZ PRN PRN Reason: Insomnia Stop: 02/23/20 01:43 Hydroxyzine HCl (Hydroxyzine Hcl 25 Mg Tab) 25 mg PO Q4H PRN PRN Reason: Anxiety Stop: 02/23/20 01:43 Levofloxacin (Levofloxacin 500 Mg Tab) 500 mg PO DAILY@1100 [facility] Stop: 01/30/20 10:59 Magnesium Hydroxide (Magnesium Hydroxide Susp 30 Ml Udc) 30 ml PO DAILY PRN PRN Reason: Constipation Stop: 02/23/20 01:43 Metronidazole (Metronidazole 500 Mg Tab) 500 mg PO TID [facility] Stop: 01/30/20 08:59 Last Admin: 01/24/20 09:00 Dose: Not Given Documented by: Miscellaneous (Remove Nicoderm Patch) 1 ea N/A DAILY@0859 [facility] Stop: 02/23/20 08:58 Last Admin: 01/24/20 08:57 Dose: Not Given Documented by: Nicotine (Nicotine 21 Mg/24 Hr Tdsy) 21 mg TD QAM [facility] Stop: 02/23/20 08:59 Last Admin: 01/24/20 08:58 Dose: Not Given Documented by: Nicotine Polacrilex (Nicotine Polacrilex 2 Mg Gum) 1 piece MT PRN PRN PRN Reason: Nicotine Withdrawal Stop: 02/23/20 01:43 Sodium Chloride (Sodium Chloride 0.65% Na Soln 45 Ml ([place])) 1 - 2 sprays NA PRN PRN PRN Reason: Nasal Dryness/Congestion Stop: 02/23/20 01:43
[2020-01-24] MEDS: levoFLOXacin 500 MG TAB PO SCH (10:53)
[2020-01-24] MEDS: NICOTINE POLACRILEX 2 MG GUM MT PRN ×2 (11:31→14:47)
[2020-01-24] MEDS: ESCITALOPRAM OXALATE 10 MG TAB PO SCH (12:35)
--- NOTE | 2020-01-25 06:28 | Electrocardiogram Report ---
Test Reason : Blood Pressure : / mmHG Vent. Rate : 118 BPM Atrial Rate : 118 BPM P-R Int : 130 ms QRS Dur : 072 ms QT Int : 306 ms P-R-T Axes : 056 075 056 degrees QTc Int : 428 ms Sinus tachycardia Possible Left atrial enlargement Borderline ECG When compared with ECG of 15-JAN-2020 02:13, Nonspecific T wave abnormality no longer evident in Anterior leads Confirmed by Rl De La Cruz ([id number]) on 01/25/2020 6:28:03 AM Referred By: REFERRED SELF Confirmed By:Rl De La Cruz
[2020-01-25 08:23] LABS: Glucose Fasting 94 mg/dl (70-99)
[2020-01-25 08:30] LABS: Chol HDL Ratio 3; Cholesterol 116 mg/dl (0-200); HDL Cholesterol 36 mg/dl; LDL Cholesterol Calculated 66 mg/dl; Triglycerides 69 mg/dl (0-150); VLDL Cholesterol 14 mg/dl
[2020-01-25] MEDS: metroNIDAZOLE 500 MG TAB PO SCH ×3 (09:11→20:36)
[2020-01-25] MEDS: ESCITALOPRAM OXALATE 10 MG TAB PO SCH (09:11)
[2020-01-25] MEDS: NICOTINE 21 MG/24 HR TDSY TD SCH (09:12)
[2020-01-25] MEDS: NICOTINE POLACRILEX 2 MG GUM MT PRN ×4 (09:20→20:36)
[2020-01-25] MEDS: levoFLOXacin 500 MG TAB PO SCH (11:14)
[2020-01-25] MEDS: PALIPERIDONE 3 MG TABCR PO SCH (11:14)
--- NOTE | 2020-01-25 13:04 | Psychiatric Progress Note ---
Date of Service January 25, 2020 Impression / Recommendations Impression 39-year-old single male who lives with his parents in [place], has a history of schizophrenia and depression as well as a chronic perirectal abscess with multiple medical admissions for the same, who presented on referral from the [facility] for worsening paranoia and depression with a significant weight loss and inability to contract for safety outside of the hospital. He is disorganized with thought blocking and severe depressive symptoms, and inpatient treatment is medically necessary. He lost case management services recently, and is unable to provide for his own needs without the care and assistance of others. We started him on Invega Sustenna in 06/2019 when he was seen on the consult service, and he might benefit from a higher dose when he is next due for an injection. He was previously on escitalopram with good response, and for unknown reasons it was discontinued sometime in the past 6 months, possibly accidentally when he transitioned outpatient psychiatric services. We will resume it as he responded well to it in the past and anxiety and depressive symptoms worsened when it was stopped. It is hard to tell if the patient's psychiatric condition and level of functioning are substantially different from his baseline. He makes it clear that he likes being in the hospital, and has said that he did not care if he got admitted to medicine or to psychiatry, he just wanted to be in the hospital so that people would "look after [him]." (1) Paranoid schizophrenia: 01/23 -continue Invega Sustenna, recommend higher dose (156 mg IM) when due for next injection on 02/19/2020, and could also give next injection early. Coordinate care with Benita Sanders. He will need follow-up with a psychiatrist, current psychiatrist is out on leave so we will need to identify who he will be seeing in the interim. -Fasting lipid profile and glucose last done 02/2019; glucose 87, FLP notable for triglycerides 285. Will order fasting labs for tomorrow for monitoring on an atypical antipsychotic. -Coordinate care with Barbara HERNANDEZ with [facility]. Apparently his case was closed as he got a new phone number and lost contact with her, but he would like to resume services, so we will assist him to do so. He would benefit from increased supports in the community, so we will explore psych rehab or mobile services. -Family meeting with parents. -Continue voluntary hospitalization. 01/24 -We discussed with the patient his report that he had been feeling "paranoid," and recommended that we supplemente his Invega Sustenna injection (his which he recently received) by adding oral Invega 3 mg a day and titrating as indicated. The patient said that he felt this would be a good idea and was in agreement. (2) Depression: 01/23 -patient previously had good response to escitalopram, and mood and anxiety symptoms worsened when it was discontinued sometime in the past 6 months. He is not sure when or why it was stopped, possibly lost when he transitioned care from [facility] to [facility]. We will resume 10 mg daily x 2 days, and then increase to 20 mg daily, his previous dose. -Courage patient to be out of bed and participating in groups and therapy. His sleep schedule is erratic, and he has no daily structure. Explore ways to increase structure at home. -Explore whether patient would benefit from individual psychotherapy. 01/24 -Today, the patient tells us that he is not having thoughts of suicide. He also says that his mood is "okay." When asked, he says that he is tolerating all of his medications well and offers no complaints of adverse effects. (3) Abscess, gluteal: 01/23 -reviewed hospitalist records from recent inpatient treatment, discharged 01/20/2020 on metronidazole and levofloxacin, last dose 01/30/2020. -Medically necessary private room due to active medical condition/wound requiring care. -Wound care consult. 01/24 -The wound mall plant caretaker had several recommendations. It is noted that this is a chronic wound that has healed poorly, and the recommendations are largely consistent with what we have been doing. -The patient declined to have the wound examined on the behavioral health unit. (4) Tobacco use disorder: 01/23 -smoking cessation education offered, reviewed risks of ongoing smoking including impaired wound healing, given chronic abscess. Offered nicotine patch and gum for cravings, and follow-up with PCP and psychiatrist. Risk Factors Assessment Male: Yes : No Do You Have Access To A Gun?: No Health Problems: Yes Mental Health Diagnoses: Yes Substance Use Disorders: No Previous Psychiatric Hospitalization: Yes Hopelessness: Yes Smoker: Yes Protective Factors Assessment : No Responsible for Young Children: No Employed: No (On disability) Stable Relationships: No Supportive Family: Yes Good Rapport with Provider: No Interval History Chief Complaint "Multiple psychiatric paranoia.". Review of Systems Sleep Information Total Hours of Sleep: 4.25 Sleep Comments: Pt on Q 15 minute checks. Meal Information Percent Meal Consumed - Breakfast: 100 Percent Meal Consumed - Lunch: 100 Percent Meal Consumed - Dinner: 100 Subjective Subjective Patient was seen & assessed and interval progress reviewed with treatment team. I met individually with the patient in order to assess his current mental status, evaluate his response to treatment, coordinate any necessary changes in the patient's treatment regimen with the patient, and address issues, questions and concerns that may arise. I began by asking the patient to explain why he had come to the hospital and to know what services he was hoping to receive. The patient began by referencing in rapid succession a number of issues, including "paranoia" and "psychiatric symptoms" and "health issues" and "an abscess." When I ask him to first please focus on his symptoms of paranoia, the patient perseverated and kept saying "I have issues of paranoia." When asked to give an example, he said that he had a number of "psychiatric symptoms." When asked to identify 1 of the psychiatric symptoms he would like us to address, the patient replied, "paranoia." Questions concerning whether he was feeling unsafe or frightened were met with similarly vague, circular thoughts, and eventually the patient said "I like to check myself into the hospital sometimes for treatment." Eventually was understood that the patient seems to like being in the hospital and feels more comfortable here. He notes that he also feels comfortable on the medical floors of the hospital and suggest, without so saying, that he considers stays in the hospital to represent a vacation of sorts. Physical Exam Psychiatric Orientation: alert, oriented x 3 and cooperative Apperance: appropriately dressed, appropriately groomed and appeared stated age Eye Contact: + poor eye contact Motor Behavior: steady gait and station and no abnormal motor movements The patient spends most of his day walking back and forth in the hallways, at a regular pace. Patient speech is occasionally spontaneous. He tends to speak somewhat softly and in a staccato fashion. Affect: + constricted affect "It is okay." Thought Process: + looseness of associations Thought Content: + delusions The report that the patient is experiencing delusion is based on the patient's report that he is feeling "paranoid," but he seems unable to describe any specific delusional thought content. He does say that he feels "unsafe" at home, but has difficulty saying specifically why. There reports that the patient has been not regularly attending to certain activities of daily living and that there has been a significant weight loss. Suicidal Thoughts: denies suicidal thoughts Homicidal Thoughts: denies homicidal thoughts Hallucinations: + auditory hallucinations; no visual hallucinations Patient reports that he periodically hears voices and notes that he may be hearing more voices now than he had heard previously. Mood is difficult to assess the patient's cognition. His associations were often quite loose. He is able to tell us where he is, and he gives us the correct date. He also understands the circumstances, and tells is that he carries a diagnosis of schizophrenia. Estimated Intelligence: + above average estimated intelligence Insight: + poor insight Judgement: + limited judgement Vital Signs (Past 24 Hours) Last Vital Signs Temp 36.7 C 01/25/20 06:00 Pulse 89 01/25/20 06:44 Resp 18 01/25/20 06:00 BP 107/71 01/25/20 06:44 Pulse Ox 96 01/24/20 03:10 Results & Data ([facility]) Laboratory Results Laboratory Results - last 24 hr 01/25/20 07:44 Fasting Glucose 94 Triglycerides 69 Cholesterol 116 LDL Cholesterol, Calc 66 VLDL Cholesterol, Calc 14 HDL Cholesterol 36 Cholesterol/HDL Ratio 3 Current Inpatient Medications Current Inpatient Medications: Current Inpatient Medications Acetaminophen (Acetaminophen 325 Mg Tab) 650 mg PO Q4H PRN PRN Reason: Headache or Minor Fever Stop: 02/23/20 01:43 Al Hydrox/Mg Hydrox/Simethicone (Aluminum/Magnesium Susp 30 Ml Udc) 30 ml PO Q4H PRN PRN Reason: GI Upset Stop: 02/23/20 01:43 Bismuth Subsalicylate (Bismuth Subsalicylate Per Ml [employer]nicell Charge) 15 ml PO PRN PRN PRN Reason: Loose Stool Stop: 02/23/20 01:43 Escitalopram Oxalate (Escitalopram Oxalate 10 Mg Tab) 10 mg PO DAILY [facility]; Taper Stop: 02/25/20 10:59 Last Admin: 01/25/20 09:11 Dose: 10 mg Documented by: Hydroxyzine HCl (Hydroxyzine Hcl 25 Mg Tab) 50 mg PO HSZ PRN PRN Reason: Insomnia Stop: 02/23/20 01:43 Hydroxyzine HCl (Hydroxyzine Hcl 25 Mg Tab) 25 mg PO Q4H PRN PRN Reason: Anxiety Stop: 02/23/20 01:43 Levofloxacin (Levofloxacin 500 Mg Tab) 500 mg PO DAILY@1100 [facility] Stop: 01/30/20 10:59 Last Admin: 01/25/20 11:14 Dose: 500 mg Documented by: Magnesium Hydroxide (Magnesium Hydroxide Susp 30 Ml Udc) 30 ml PO DAILY PRN PRN Reason: Constipation Stop: 02/23/20 01:43 Metronidazole (Metronidazole 500 Mg Tab) 500 mg PO TID [facility] Stop: 01/30/20 08:59 Last Admin: 01/25/20 09:11 Dose: 500 mg Documented by: Miscellaneous (Remove Nicoderm Patch) 1 ea N/A DAILY@0859 [facility] Stop: 02/23/20 08:58 Last Admin: 01/25/20 09:12 Dose: Not Given Documented by: Nicotine (Nicotine 21 Mg/24 Hr Tdsy) 21 mg TD QAM [facility] Stop: 02/23/20 08:59 Last Admin: 01/25/20 09:12 Dose: Not Given Documented by: Nicotine Polacrilex (Nicotine Polacrilex 2 Mg Gum) 1 piece MT PRN PRN PRN Reason: Nicotine Withdrawal Stop: 02/23/20 01:43 Last Admin: 01/25/20 09:20 Dose: 1 piece Documented by: Paliperidone (Paliperidone 3 Mg Tabcr) 3 mg PO QAM [facility] Stop: 02/24/20 10:29 Last Admin: 01/25/20 11:14 Dose: 3 mg Documented by: Sodium Chloride (Sodium Chloride 0.65% Na Soln 45 Ml ([place])) 1 - 2 sprays NA PRN PRN PRN Reason: Nasal Dryness/Congestion Stop: 02/23/20 01:43 Mental Health & Subst Abuse Tx Psychiatrist Name of Psychiatrist: Dr Aden Cunningham covering Psychiatrist's Date of Appointment with Psychiatrist: 02/08/20 Time of Appointment with Psychiatrist: 10:30am Psychiatric Appointment Comment: Virtual video-sent email link to patient Therapist Name of Therapist: No therapist Mottler Operator Name of Mottler Operator: No CM Post Discharge Appointments Primary Care Physician Name Of Family Doctor: Dr Sammy Sanders Primary Care Date of Appointment with PCP: 02/01/20 Time of Appointment with PCP: 11:05am Provider Appointment Comment: Sumit Sanders-[address] [employer]
[2020-01-26] MEDS: metroNIDAZOLE 500 MG TAB PO SCH ×3 (08:58→20:55)
[2020-01-26] MEDS: PALIPERIDONE 3 MG TABCR PO SCH (08:59)
[2020-01-26] MEDS: ESCITALOPRAM OXALATE 10 MG TAB PO SCH (08:59)
[2020-01-26] MEDS: NICOTINE 21 MG/24 HR TDSY TD SCH (08:59)
[2020-01-26] MEDS: NICOTINE POLACRILEX 2 MG GUM MT PRN ×2 (09:00→16:16)
--- NOTE | 2020-01-26 09:02 | Psychiatric Progress Note ---
Date of Service January 26, 2020 Impression / Recommendations Impression 39-year-old single male who lives with his parents in [place], has a history of schizophrenia and depression as well as a chronic perirectal abscess with multiple medical admissions for the same, who presented on referral from the [facility] for worsening paranoia and depression with a significant weight loss and inability to contract for safety outside of the hospital. He is disorganized with thought blocking and severe depressive symptoms, and inpatient treatment is medically necessary. He lost case management services recently, and is unable to provide for his own needs without the care and assistance of others. We started him on Invega Sustenna in 06/2019 when he was seen on the consult service, and he might benefit from a higher dose when he is next due for an injection. He was previously on escitalopram with good response, and for unknown reasons it was discontinued sometime in the past 6 months, possibly accidentally when he transitioned outpatient psychiatric services. We will resume it as he responded well to it in the past and anxiety and depressive symptoms worsened when it was stopped. It is hard to tell if the patient's psychiatric condition and level of functioning are substantially different from his baseline. He makes it clear that he likes being in the hospital, and has said that he did not care if he got admitted to medicine or to psychiatry, he just wanted to be in the hospital so that people would "look after [him]." Reviewed. (1) Paranoid schizophrenia: 01/23 -continue Invega Sustenna, recommend higher dose (156 mg IM) when due for next injection on 02/19/2020, and could also give next injection early. Coordinate care with Benita Sanders. He will need follow-up with a psychiatrist, current psychiatrist is out on leave so we will need to identify who he will be seeing in the interim. -Fasting lipid profile and glucose last done 02/2019; glucose 87, FLP notable for triglycerides 285. Will order fasting labs for tomorrow for monitoring on an atypical antipsychotic. -Coordinate care with Barbara HERNANDEZ with [facility]. Apparently his case was closed as he got a new phone number and lost contact with her, but he would like to resume services, so we will assist him to do so. He would benefit from increased supports in the community, so we will explore psych rehab or mobile services. -Family meeting with parents. -Continue voluntary hospitalization. 01/24 -We discussed with the patient his report that he had been feeling "paranoid," and recommended that we supplemente his Invega Sustenna injection (his which he recently received) by adding oral Invega 3 mg a day and titrating as indicated. The patient said that he felt this would be a good idea and was in agreement. 01/25 just added Invega yesterday, likely increase tomorrow. (2) Depression: 01/23 -patient previously had good response to escitalopram, and mood and anxiety symptoms worsened when it was discontinued sometime in the past 6 months. He is not sure when or why it was stopped, possibly lost when he transitioned care from [facility] to [facility]. We will resume 10 mg daily x 2 days, and then increase to 20 mg daily, his previous dose. -Courage patient to be out of bed and participating in groups and therapy. His sleep schedule is erratic, and he has no daily structure. Explore ways to increase structure at home. -Explore whether patient would benefit from individual psychotherapy. 01/24 -Today, the patient tells us that he is not having thoughts of suicide. He also says that his mood is "okay." When asked, he says that he is tolerating all of his medications well and offers no complaints of adverse effects. 01/25--reviewed. (3) Abscess, gluteal: 01/23 -reviewed hospitalist records from recent inpatient treatment, discharged 01/20/2020 on metronidazole and levofloxacin, last dose 01/30/2020. -Medically necessary private room due to active medical condition/wound requiring care. -Wound care consult. 01/24 -The wound acute care assistant had several recommendations. It is noted that this is a chronic wound that has healed poorly, and the recommendations are largely consistent with what we have been doing. -The patient declined to have the wound examined on the behavioral health unit. 01/25--reviewed (4) Tobacco use disorder: 01/23 -smoking cessation education offered, reviewed risks of ongoing smoking including impaired wound healing, given chronic abscess. Offered nicotine patch and gum for cravings, and follow-up with PCP and psychiatrist. 01/25--reviewed. Risk Factors Assessment Male: Yes : No Do You Have Access To A Gun?: No Health Problems: Yes Mental Health Diagnoses: Yes Substance Use Disorders: No Previous Psychiatric Hospitalization: Yes Hopelessness: Yes Smoker: Yes Protective Factors Assessment : No Responsible for Young Children: No Employed: No (On disability) Stable Relationships: No Supportive Family: Yes Good Rapport with Provider: No Interval History Chief Complaint "i do think I'm turning around". Review of Systems Sleep Information Total Hours of Sleep: 5.25 Sleep Comments: Pt on Q 15 minute checks. Meal Information Percent Meal Consumed - Breakfast: 100 Percent Meal Consumed - Lunch: 100 Percent Meal Consumed - Dinner: 100 Subjective Subjective Patient was seen & assessed and interval progress reviewed with nursing and social work. Doesn't allow attention to his perirectal area. Has been ambulating and eating/otherwise functioning on unit without reporting any SI. Physical Exam Psychiatric Orientation: alert, oriented x 3 and cooperative Apperance: appropriately dressed and appropriately groomed Eye Contact: + fair eye contact Motor Behavior: steady gait and station and no abnormal motor movements Affect: + blunted affect Mood: + depressed mood Thought Process: + concrete thought process Thought Content: not paranoid and no delusions Suicidal Thoughts: denies suicidal thoughts Homicidal Thoughts: denies homicidal thoughts Hallucinations: no auditory hallucinations and no visual hallucinations Cognition: language grossly intact; + recent memory not intact and + attention not intact Estimated Intelligence: consistent with education level and + above average estimated intelligence Insight: + impaired insight Judgement: + impaired judgement Vital Signs (Past 24 Hours) Last Vital Signs Temp 36.8 C 01/26/20 06:00 Pulse 73 01/26/20 06:49 Resp 18 01/26/20 06:00 BP 112/74 01/26/20 06:49 Pulse Ox 96 01/24/20 03:10 Results & Data ([facility]) Current Inpatient Medications Current Inpatient Medications: Current Inpatient Medications Acetaminophen (Acetaminophen 325 Mg Tab) 650 mg PO Q4H PRN PRN Reason: Headache or Minor Fever Stop: 02/23/20 01:43 Al Hydrox/Mg Hydrox/Simethicone (Aluminum/Magnesium Susp 30 Ml Udc) 30 ml PO Q4H PRN PRN Reason: GI Upset Stop: 02/23/20 01:43 Bismuth Subsalicylate (Bismuth Subsalicylate Per Ml [employer]nic[employer] Charge) 15 ml PO PRN PRN PRN Reason: Loose Stool Stop: 02/23/20 01:43 Escitalopram Oxalate (Escitalopram Oxalate 10 Mg Tab) 10 mg PO DAILY [facility]; Taper Stop: 02/25/20 10:59 Last Admin: 01/25/20 09:11 Dose: 10 mg Documented by: Hydroxyzine HCl (Hydroxyzine Hcl 25 Mg Tab) 50 mg PO HSZ PRN PRN Reason: Insomnia Stop: 02/23/20 01:43 Hydroxyzine HCl (Hydroxyzine Hcl 25 Mg Tab) 25 mg PO Q4H PRN PRN Reason: Anxiety Stop: 02/23/20 01:43 Levofloxacin (Levofloxacin 500 Mg Tab) 500 mg PO DAILY@1100 [facility] Stop: 01/30/20 10:59 Last Admin: 01/25/20 11:14 Dose: 500 mg Documented by: Magnesium Hydroxide (Magnesium Hydroxide Susp 30 Ml Udc) 30 ml PO DAILY PRN PRN Reason: Constipation Stop: 02/23/20 01:43 Metronidazole (Metronidazole 500 Mg Tab) 500 mg PO TID [facility] Stop: 01/30/20 08:59 Last Admin: 01/25/20 20:36 Dose: 500 mg Documented by: Miscellaneous (Remove Nicoderm Patch) 1 ea N/A DAILY@0859 [facility] Stop: 02/23/20 08:58 Last Admin: 01/25/20 09:12 Dose: Not Given Documented by: Nicotine (Nicotine 21 Mg/24 Hr Tdsy) 21 mg TD QAM [facility] Stop: 02/23/20 08:59 Last Admin: 01/25/20 09:12 Dose: Not Given Documented by: Nicotine Polacrilex (Nicotine Polacrilex 2 Mg Gum) 1 piece MT PRN PRN PRN Reason: Nicotine Withdrawal Stop: 02/23/20 01:43 Last Admin: 01/25/20 20:36 Dose: 1 piece Documented by: Paliperidone (Paliperidone 3 Mg Tabcr) 3 mg PO QAM [facility] Stop: 02/24/20 10:29 Last Admin: 01/25/20 11:14 Dose: 3 mg Documented by: Sodium Chloride (Sodium Chloride 0.65% Na Soln 45 Ml ([place])) 1 - 2 sprays NA P RN PRN PRN Reason: Nasal Dryness/Congestion Stop: 02/23/20 01:43 Mental Health & Subst Abuse Tx Psychiatrist Name of Psychiatrist: Dr Aden Cunningham covering Psychiatrist's Date of Appointment with Psychiatrist: 02/08/20 Time of Appointment with Psychiatrist: 10:30am Psychiatric Appointment Comment: Virtual video-sent email link to patient Therapist Name of Therapist: No therapist Parcel Contractor Name of Parcel Contractor: [employer] Phone Number for Parcel Contractor: [phone] Case Management Appointment Comment: Will follow up with you to assign a telephonic case manager Post Discharge Appointments Primary Care Physician Name Of Family Doctor: Dr Sammy Sanders Primary Care Date of Appointment with PCP: 02/01/20 Time of Appointment with PCP: 11:05am Provider Appointment Comment: Sumit Sanders-[address] [facility] Contact Information Discharge Discharge Address: [address] [place] [id number]
[2020-01-26] MEDS: levoFLOXacin 500 MG TAB PO SCH (11:13)
[2020-01-27] MEDS: PALIPERIDONE 3 MG TABCR PO SCH (09:00)
[2020-01-27] MEDS: ESCITALOPRAM OXALATE 10 MG TAB PO SCH (09:00)
[2020-01-27] MEDS: metroNIDAZOLE 500 MG TAB PO SCH ×2 (09:01→12:47)
[2020-01-27] MEDS: NICOTINE 21 MG/24 HR TDSY TD SCH (09:02)
[2020-01-27] MEDS: NICOTINE POLACRILEX 2 MG GUM MT PRN (09:03)
--- NOTE | 2020-01-27 11:20 | Discharge Summary ---
Date of Service January 27, 2020 History of Present Illness per admitting provider: Nabila is well-known to our service from multiple previous episodes of care, as he is frequently admitted to the hospitalist service for IV antibiotics for his chronic perirectal abscess, and we have been involved in his care on our consultation service. We last saw him in 11/10/2019, and also during his medical admission May-June 2019, at which time he was started on Invega Sustenna. He now follows with Dr. Mikala Mann at [facility], and received Invega Sustenna 117 mg on 01/22 2020. He presented to the ER overnight on referral from the [facility] crisis center, after he presented there reporting worsening paranoia over the past few weeks, increased stress, and depressed mood. He reported decreased appetite with weight loss, poor sleep, staying awake for 24-36 hours and then sleeping for 8 hours. He was unable to engage in safety planning, and requested inpatient treatment. He was just discharged from the hospitalist service 01/20/2020 after a 5-day hospitalization for draining abscess. He was discharged on levofloxacin 500 mg daily and metronidazole 500 mg every 8 hours x8 days. Admission labs notable for WBC 10.87, RBC 4.44, hemoglobin 12.6, hematocrit 38.2%, platelets 470; glucose 115, TSH 1.750, negative UA and UDS. He signed in voluntarily for treatment. On my assessment, he reports mood has worsened over the past couple of months in the context of moving from the [facility] back to parents' house, although reports feeling supported by parents. Feels stressed and overwhelmed, "A lot of different situations came together," feels unable to cope or manage his difficulties. Was discharged from case management as he missed appts due to COVID and then got a new cell number so missed calls, then received a letter his case was closed, but wants to have case management services. Doesn't know what happened to the LExapro he was on earlier this year, unsure if or why it was stopped. Decreased appetite with 50lb weight loss, poor sleep, and increased anxiety. Spending his time on his computer, listening to music, and "lots of time lying on the floor or bed," as it is uncomfortable to sit d/t abscess. Feels paranoid and has difficulty relaying his thoughts. Wants to work on "talking, sorting my thoughts out," and wants help getting outpatient services. Physical Exam Mental Examination See admission H&P and DOD assessment. Vital Signs (Past 24 Hours) Last Vital Signs Temp 37.0 C 01/27/20 06:27 Pulse 70 01/27/20 06:28 Resp 16 01/27/20 06:27 BP 116/72 01/27/20 06:28 Pulse Ox 96 01/24/20 03:10 Principal Diagnosis schizophrenia, paranoid type Psychiatric Data Was admitted for SI and decline in functioning. Was restarted on Lexapro and oral Invega was added to effectively increase Invega sustenna as too early to give a higher dose of sustenna as injection given just prior to hospitalization. He was cooperative with unit routines other than wound care nurse which is typical for him and he attended very few groups but he was more animated/visible on unit that I have ever seen him with less delay in response. He consistently denied SI through stay and was requesting discharge. He attended to ADLS independently (meals and showered last pm). Day of Discharge Assessment Gurpreet is alert and cooperative, he is soft spoken but responsive in conver sation. Minimal thought blocking. His thoughts are concrete but organized. He denies krause and does not appear to be responding to internal stimuli. He is calm without evidence of involuntary motor movements. He denies suicidal thoughts and there are no thoughts to harm others. He does not express delusions. He verbalizes a safety plan and has family support. He is stable for discharge to outpatient level of care. He is here on a voluntary and is requesting discharge. Transition of Care Transition Of Care Record: was reviewed with the patient Advance Directives Advance Directives Information Provided: Yes Advance Directives: No Mental Health Advance Directive: No Advance Directives on File: No Living Will: No Power of Health Support Specialist: No Advance Directives Reason:: Declines as Mental Health Visit. Risk Factors Assessment Male: Yes : No Do You Have Access To A Gun?: No Health Problems: Yes Mental Health Diagnoses: Yes Substance Use Disorders: No Previous Psychiatric Hospitalization: Yes Hopelessness: Yes Smoker: Yes Protective Factors Assessment : No Responsible for Young Children: No Employed: No (On disability) Stable Relationships: No Supportive Family: Yes Good Rapport with Provider: No Tobacco Cessation at Discharge Tobacco Cessation Medication Prescribed at Discharge: Offered & Pt Refused Total Time Total Time Spent: Greater Than 30 Minutes Total Time Includes: Examination of the patient, Discharge Planning and Medication Reconciliation Discharge Data Lab Results 01/23/20 01/23/20 01/23/20 21:40 21:40 22:28 WBC 10.87 H RBC 4.44 L Hgb 12.6 L Hct 38.2 L MCV 86.0 MCH 28.4 MCHC 33.0 RDW Std Deviation 54.3 H RDW Coeff of Fausto 17.3 H Plt Count 470 H MPV 8.4 Immature Gran % (Auto) 0.2 Neut % (Auto) 65.9 Lymph % (Auto) 26.4 [place] % (Auto) 5.7 Eos % (Auto) 1.6 Baso % (Auto) 0.2 Neut # (Auto) 7.17 H Lymph # (Auto) 2.87 [place] # (Auto) 0.62 H Eos # (Auto) 0.17 Baso # (Auto) 0.02 Immature Gran # (Auto) 0.02 Sodium Potassium Chloride Carbon Dioxide Anion Gap BUN Creatinine Est Cr Clr Drug Dosing Est GFR ( Amer) Est GFR (Non-Af Amer) BUN/Creatinine Ratio Glucose Fasting Glucose Calcium Total Bilirubin AST ALT Alkaline Phosphatase Total Protein Albumin Globulin Albumin/Globulin Ratio Triglycerides Cholesterol LDL Cholesterol, Calc VLDL Cholesterol, Calc HDL Cholesterol Cholesterol/HDL Ratio TSH Urine Color Yellow Urine Appearance Clear Urine pH 5.0 Ur Specific [place] 1.007 Urine Protein Negative Urine Glucose (UA) Negative Urine Ketones Negative Urine Blood Negative Urine Nitrite Negative Urine Bilirubin Negative Urine Urobilinogen Negative Ur Leukocyte Esterase Negative Salicylates Urine Opiates Screen Neg Ur Methadone, Qual Neg Acetaminophen Urine Barbiturates Neg Ur Phencyclidine (PCP) Neg U Amphetamin/Meth Scrn Neg MDMA (Ecstasy) Screen Neg U Benzodiazepines Scrn Neg Ur Cocaine Metabolite Neg U Marijuana (THC) Screen Neg Ethyl Alcohol mg/dL 01/23/20 01/23/20 01/23/20 22:28 22:28 22:28 WBC RBC Hgb Hct MCV MCH MCHC RDW Std Deviation RDW Coeff of Fausto Plt Count MPV Immature Gran % (Auto) Neut % (Auto) Lymph % (Auto) [place] % (Auto) Eos % (Auto) Baso % (Auto) Neut # (Auto) Lymph # (Auto) [place] # (Auto) Eos # (Auto) Baso # (Auto) Immature Gran # (Auto) Sodium 137 Potassium 3.7 Chloride 104 Carbon Dioxide 25 Anion Gap 8.0 BUN 6 L Creatinine 1.04 Est Cr Clr Drug Dosing 84.9 Est GFR ( Amer) 103.6 Est GFR (Non-Af Amer) 89.4 BUN/Creatinine Ratio 6.2 L Glucose 115 H Fasting Glucose Calcium 9.2 Total Bilirubin 0.3 AST 15 ALT 21 Alkaline Phosphatase 97 Total Protein 8.8 H Albumin 3.4 Globulin 5.4 H Albumin/Globulin Ratio 0.6 L Triglycerides Cholesterol LDL Cholesterol, Calc VLDL Cholesterol, Calc HDL Cholesterol Cholesterol/HDL Ratio TSH 1.750 Urine Color Urine Appearance Urine pH Ur Specific [place] Urine Protein Urine Glucose (UA) Urine Ketones Urine Blood Urine Nitrite Urine Bilirubin Urine Urobilinogen Ur Leukocyte Esterase Salicylates 5.1 Urine Opiates Screen Ur Methadone, Qual Acetaminophen < 2 L Urine Barbiturates Ur Phencyclidine (PCP) U Amphetamin/Meth Scrn MDMA (Ecstasy) Screen U Benzodiazepines Scrn Ur Cocaine Metabolite U Marijuana (THC) Screen Ethyl Alcohol mg/dL < 3.0 01/25/20 07:44 WBC RBC Hgb Hct MCV MCH MCHC RDW Std Deviation RDW Coeff of Fausto Plt Count MPV Immature Gran % (Auto) Neut % (Auto) Lymph % (Auto) [place] % (Auto) Eos % (Auto) Baso % (Auto) Neut # (Auto) Lymph # (Auto) [place] # (Auto) Eos # (Auto) Baso # (Auto) Immature Gran # (Auto) Sodium Potassium Chloride Carbon Dioxide Anion Gap BUN Creatinine Est Cr Clr Drug Dosing Est GFR ( Amer) Est GFR (Non-Af Amer) BUN/Creatinine Ratio Glucose Fasting Glucose 94 Calcium Total Bilirubin AST ALT Alkaline Phosphatase Total Protein Albumin Globulin Albumin/Globulin Ratio Triglycerides 69 Cholesterol 116 LDL Cholesterol, Calc 66 VLDL Cholesterol, Calc 14 HDL Cholesterol 36 Cholesterol/HDL Ratio 3 TSH Urine Color Urine Appearance Urine pH Ur Specific [place] Urine Protein Urine Glucose (UA) Urine Ketones Urine Blood Urine Nitrite Urine Bilirubin Urine Urobilinogen Ur Leukocyte Esterase Salicylates Urine Opiates Screen Ur Methadone, Qual Acetaminophen Urine Barbiturates Ur Phencyclidine (PCP) U Amphetamin/Meth Scrn MDMA (Ecstasy) Screen U Benzodiazepines Scrn Ur Cocaine Metabolite U Marijuana (THC) Screen Ethyl Alcohol mg/dL Hospital Course (1) Paranoid schizophrenia: 01/23 -continue Invega Sustenna, recommend higher dose (156 mg IM) when due for next injection on 02/19/2020, and could also give next injection early. Coordinate care with Benita Sanders. He will need follow-up with a psychiatrist, current psychiatrist is out on leave so we will need to identify who he will be seeing in the interim. -Fasting lipid profile and glucose last done 02/2019; glucose 87, FLP notable for triglycerides 285. Will order fasting labs for tomorrow for monitoring on an atypical antipsychotic. -Coordinate care with Barbara HERNANDEZ with [facility]. Apparently his case was closed as he got a new phone number and lost contact with her, but he would like to resume services, so we will assist him to do so. He would benefit from increased supports in the community, so we will explore psych rehab or mobile services. -Family meeting with parents. -Continue voluntary hospitalization. 01/24 -We discussed with the patient his report that he had been feeling "paranoid," and recommended that we supplemente his Invega Sustenna injection (his which he recently received) by adding oral Invega 3 mg a day and titrating as indicated. The patient said that he felt this would be a good idea and was in agreement. 01/25 just added Invega yesterday, likely increase tomorrow. (2) Depression: 01/23 -patient previously had good response to escitalopram, and mood and anxiety symptoms worsened when it was discontinued sometime in the past 6 months. He is not sure when or why it was stopped, possibly lost when he transitioned care from [facility] to [facility]. We will resume 10 mg daily x 2 days, and then increase to 20 mg daily, his previous dose. -Courage patient to be out of bed and participating in groups and therapy. His sleep schedule is erratic, and he has no daily structure. Explore ways to increase structure at home. -Explore whether patient would benefit from individual psychotherapy. 01/24 -Today, the patient tells us that he is not having thoughts of suicide. He also says that his mood is "okay." When asked, he says that he is tolerating all of his medications well and offers no complaints of adverse effects. 01/25--reviewed. (3) Abscess, gluteal: 01/23 -reviewed hospitalist records from recent inpatient treatment, discharged 01/20/2020 on metronidazole and levofloxacin, last dose 01/30/2020. -Medically necessary private room due to active medical condition/wound requiring care. -Wound care consult. 01/24 -The wound lead care manager had several recommendations. It is noted that this is a chronic wound that has healed poorly, and the recommendations are largely consistent with what we have been doing. -The patient declined to have the wound examined on the behavioral health unit. 01/25--reviewed (4) Tobacco use disorder: 01/23 -smoking cessation education offered, reviewed risks of ongoing smoking including impaired wound healing, given chronic abscess. Offered nicotine patch and gum for cravings, and follow-up with PCP and psychiatrist. 01/25--reviewed. Mental Health & Subst Abuse Tx Psychiatrist Name of Psychiatrist: Dr Aden Cunningham covering Psychiatrist's Date of Appointment with Psychiatrist: 02/08/20 Time of Appointment with Psychiatrist: 10:30am Psychiatric Appointment Comment: Virtual video-sent email link to patient Therapist Name of Therapist: No therapist Dispatcher Tow [employer] Name of Dispatcher Tow Truck: [employer] Phone Number for Dispatcher Tow Truck: [phone] Case Management Appointment Comment: Will follow up with you to assign a manager rn case Post Discharge Appointments Primary Care Physician Name Of Family Doctor: Dr Agrawal-Benita Sanders Primary Care Date of Appointment with PCP: 02/01/20 Time of Appointment with PCP: 11:05am Provider Appointment Comment: Sumit Sanders[facility] Smoking Cessation Counseling Tobacco Cessation Medication Prescribed at Discharge: Offered & Pt Refused Contact Information Discharge Discharge [address]: [address] [place] [id number] Discharge Plan Discharge Items Patient Disposition: Home - Self-Care Reason For Visit: PARANOID SCHIZOPHRENIA Discharge Diagnosis: same Activity: Resume your previous activity Non-emergency contact: Primary Care Provider, Psychiatrist and Receiving Supervisor Call non-emergency contact if: you have any medication questions and your symptoms worsen Follow-up/Referrals: Kenneth Agrawal DO [Primary Care Provider] - Diet: Regular Addtl Attending Provider Instructions: SPECIAL CARE INSTRUCTIONS: 1. Follow through with your scheduled aftercare appointments. If unable to keep an appointment, please call to reschedule. 2. Take your medication only as prescribed. Medication should not be changed or stopped without the approval of your doctor. In the event of worsening symptoms or concerns about side effects, contact your doctor immediately. 3. Utilize new healthy coping skills, anger management skills, and stress management skills learned during your hospitalization. Journal feelings and process them with a support person. Identify stressors or situations that may result in relapse, deterioration or inappropriate behaviors and develop a plan to deal with those issues. 4. If your coping skills are ineffective and you are in crisis, contact your outpatient providers for direction. If unable to reach your providers, please call the [facility] CRISIS LINE AT , go to the [facility] walk-in center at [address] [place] [address] A, [place], or go to the closest Emergency Room. 5. Avoid alcohol and un-prescribed drugs. 6. You have been provided with the Mental Health Advance Directives Pamphlet for your review. AFTERCARE APPOINTMENTS: * Please call your insurance company prior to your scheduled appointment to confirm your aftercare providers are covered. Take your insurance information to your appointments. WHO TO CALL AND WHEN: Medical Emergencies: For questions or emergencies related to your hospital stay, please contact the Inpatient Behavioral Health Unit at [phone]. A music engraver is on-call 13/12 for the Behavioral Health Unit for emergencies At any time you feel your situation is an emergency, you may also call 911 immediately. Pending Studies at Discharge: No Stand-Alone Forms: [facility], Smoking Cessation, Suicide Prevention Resources Medications and DC Order Prescriptions: New escitalopram oxalate [Lexapro] 20 mg tablet 20 mg PO DAILY 30 Days Qty: 30 RF: 0 paliperidone [Invega] 3 mg Tablet Extended Release 24hr 3 mg PO QAM 30 Days Qty: 30 RF: 0 Continued metronidazole [Flagyl] 500 mg tablet 500 mg PO TID RF: 0 levofloxacin 500 mg tablet 500 mg PO DAILY RF: 0 hydroxyzine pamoate [Vistaril] 50 mg capsule 50 mg PO PM PRN (Reason: Anxiety) RF: 0 Invega Sustenna 117 mg/0.75 mL syringe 0 mg IM MO RF: 0 Discharge Orders: Discharge Order (Routine); Ordered 01/27/20 Ordered By: Carrie Bucio Admission Data Admit Date/Time: 01/24/20 01:34 Attending Provider: Caryn Vieira Admit Provider: Percy Ribeiro Primary Care Provider: Kenneth Agrawal Other Interventions: PSY Interdisciplinary Discharge Planning Last Done: 01/25/20 15:03 Coding Level of Care Code 32521 D/C day mgmt > 30 min Diagnoses Paranoid schizophrenia F20.0 Depression F32.9 Abscess, gluteal L02.31 Tobacco use disorder F17.200
[2020-01-27] MEDS: levoFLOXacin 500 MG TAB PO SCH (12:46)
== END 2020-01-27 13:08 | disposition home or self-care (01) | DRG 885 ==
LOC: ED 21:18 → 3S 01-24 01:23

== ENCOUNTER 2020-11-05 14:50 | Inpatient (IN) ==
[2020-11-05] MEDS ORDERED: cefTRIAXone SODIUM 1,000 MG/50 ML BAG IV STA (15:47)
--- NOTE | 2020-11-05 15:50 | Emergency Department Note ---
Impression & Plan Acute hypokalemia, Hypomagnesemia, Abnormal EKG, Facial mass ED Provider Note NAME: KIERA STANTON AGE: 40 SEX: M : 1980 ARRIVES VIA: Walk-In INFORMANT: Patient ED PROVIDER(S): Aneesh De La Garza DO CHIEF COMPLAINT: Swelling of the right side of face HPI: Patient is a 40-year-old male with a past medical history of hidradenitis, cellulitis, paranoid schizophrenia who presents to the ER for swelling just under his right ear. This has been present for the past 4 to 5 days. He notes its mildly tender about 2 out of 10. Denies any problems eating or drinking. No chest pain, shortness of breath, nausea, vomiting, or diarrhea. No fevers. No dysuria, urgency, or frequency. ROS: See above HPI for pertinent positives & negatives. A total of 10 systems reviewed and were otherwise negative. PAST MEDICAL HISTORY:See Below PAST SURGICAL HISTORY:See Below FAMILY HISTORY:See Below SOCIAL HISTORY:See Below HOME MEDICATIONS:See Below ALLERGIES:See Below VITALS:See Below PHYSICAL EXAMINATION: GENERAL: Sitting up in bed, alert, well appearing, well nourished, no distress, non-toxic EYE EXAM: normal conjunctiva. FACE: Large fluctuant mass overlying the right parotid. Skin is red overlying fluctuance. There is no other surrounding erythema. Mild tenderness. OROPHARYNX: Dry mucous membranes with terrible dentition NECK: supple, no nuchal rigidity, no adenopathy, non-tender LUNGS: Clear to auscultation. Normal chest wall mechanics HEART: tachy, S1 normal and S2 normal ABDOMEN: abdomen soft, non-tender, normo-active bowel sounds, no masses, no r ebound or guarding. UPPER EXTREMITIES: upper extremities are grossly normal. LOWER EXTREMITIES: No pitting edema. NEURO EXAM: Normal sensorium, cranial nerves II-XII grossly intact, normal speech, no gross weakness of arms, no gross weakness of legs. MEDICAL DECISION MAKING: Patient is a 40-year-old male who presents to the ER for right facial mass. This has been present since Tuesday. IV was established, blood work obtained. Labs show mild anemia at 10 but no significant leukocytosis. BMP with a hypokalemia at 2 and a sodium at 130 combination with a chloride at 90. EKG did showed EKG changes likely consistent with hypokalemia. Magnesium was low at 1.6. Calcium was also low at 8. Covid was ordered and pending. CT was ordered due to the location as it is over top of the parotid gland. They question if this originates from the parotid gland. Discussed with ENT [place] Flower recommends and agrees with holding on opening this up if as concern that this is from the parotid gland. [facility]. Houston Flower will review the images. Patient was given 40 mEq orally as well as 20 IV along with IV magnesium. Patient was monitored closely admitted to the hospitalist for further work-up. He was given IV Rocephin initially as I thought this was more skin in origin however with the parotid gland involvement patient was given the addition normal dose of Flagyl for anaerobic coverage and may benefit from just Clinda as patient has an allergy to Unasyn. Triage Nursing notes reviewed. Limited review of prior medical records performed Vital Signs: reviewed and remarkable for tachy Differential diagnosis: Cellulitis, abscess, MRSA infection, DVT, necrotizing fasciitis, dermatitis, drug eruption, allergic reaction, as well as other pathologies. ER treatment provided: See below Diagnostics interpreted by me: ECG: Sinus tachycardia rate of 100 Normal axis QTC prolonged at [address] wave changes in the lateral leads as well as inferior leads with T wave flattening V2 through V3 In comparison to previous QTC has prolonged with new T wave flattening nonspecific ST wave changes in the lateral leads Cardiac Monitoring: An order was placed for continuous cardiac monitoring. The monitor shows a rate of 110 with sinus rhythm. Laboratory studies: As stated above and show below. Imaging studies: CT neck as discussed above Consultation(s): Discussed with Houston Flower as discussed above Discussed with [facility] for further evaluation Procedures: none Critical Care: I have personally spent 32 minutes of critical care time in the direct management of this patient. This includes bedside care, interpretation of diagnostic studies, and testing, discussion with consultants, patient, and family members, and other required patient management activities. This 32 minutes is in excess of all separately billable procedures. Past Med/Surg History Medical History (Updated 11/05/20 @ 17:24 by Aneesh De La Garza DO) Depression Paranoid schizophrenia Paranoid schizophrenia Perianal abscess Perirectal abscess Tobacco use disorder Surgical History History of incision and drainage Family History Other Cancer Denies family history of Schizophrenia Social History Smoking Status: Current every day smoker Tobacco Type: Cigarettes packs per day: 0.5; Cigarettes Per Day: 10; Second Hand Exposure: Yes; Hx Alcohol Use: No Hx Substance Use: No Preferred Language: S[place] Communication Ability: Effective Slot Operations Manager Required: No Beliefs That Will Affect Care: None marital status: Single Current Living Situation: Family Current Living Situation Comment: pt reports currently living with his parents current occupational status: disabled Feels Safe at Home: Yes during the past year weight has: remained stable Assistive Devices: None Allergies Allergies Allergy/AdvReac Type Severity Reaction Status Date / Time Penicillins Allergy Severe Rash Verified 11/05/20 15:40 Home Meds Home Medications Medication Instructions Recorded Confirmed Invega Sustenna 0 mg IM MONTHLY 10/23/19 11/05/20 Results & Data (ED) Vital Signs Vital Signs - 24 hr 11/05/20 15:10 11/05/20 16:12 Temperature 36.3 C L Temperature Source Temporal Artery Scan Pulse Rate 113 H Respiratory Rate 20 Blood Pressure 136/89 Blood Pressure Mean 104 Pulse Oximetry 99 Oxygen Delivery Method Room Air Room Air Sepsis Recent Fever Within 48 Hours No Sepsis New/Unexplained Change in Mental Status N/A Sepsis Action Taken by Nursing No Action Required Laboratory Data Result diagrams: 11/05/20 15:54 11/05/20 15:54 Lab Results 11/05/20 11/05/20 11/05/20 Range/Units 15:54 15:54 16:03 WBC 6.51 (4.8-10.8) K/uL RBC 3.25 L (4.7-6.1) M/uL Hgb 10.3 L (14.0-18.0) g/dL POC Hgb 11.9 L (14.0-18.0) g/dl Hct 30.2 L (42-52) % POC Hct 35 L (42-52) % MCV 92.9 (80-100) fL MCH 31.7 (25-34) pg MCHC 34.1 (32-36) g/dL RDW Std Deviation 51.0 H (36.4-46.3) fL RDW Coeff of Fausto 15.0 H (11.5-14.5) % Plt Count 342 (130-400) K/uL MPV 8.6 (7.4-10.4) fL Immature Gran % (Auto) 0.8 % Neut % (Auto) 64.5 % Lymph % (Auto) 30.0 % [place] % (Auto) 2.9 % Eos % (Auto) 1.8 % Baso % (Auto) 0.0 % Neut # (Auto) 4.20 (1.4-6.5) K/uL Lymph # (Auto) 1.95 (1.2-3.4) K/uL [place] # (Auto) 0.19 (0.11-0.59) K/uL Eos # (Auto) 0.12 (0-0.5) K/uL Baso # (Auto) 0.00 (0-0.2) K/uL Immature Gran # (Auto) 0.05 H (0.00-0.02) K/uL POC Sodium 131 L (135-144) mmol/L Sodium 130 L (136-145) mmol/L POC Potassium 2.1 L* (3.3-5.0) mmol/L Potassium 2.0 L* (3.5-5.1) mmol/L POC Chloride 84 L (101-112) mmol/L Chloride 90 L (98-107) mmol/L Carbon Dioxide 30 (21-32) mmol/L POC Total CO2 27 (24-31) mmol/L Anion Gap 10.0 (3-11) POC Anion Gap 23.0 (16-25) mmol/L POC BUN < 3 L (7-18) mg/dl BUN 2 L (7-18) mg/dl Creatinine 0.69 (0.6-1.4) mg/dl POC Creatinine 0.7 (0.6-1.3) mg/dl Est Cr Clr Drug Dosing 154.6 ml/min Est GFR ( Amer) 136.7 ml/min Est GFR (Non-Af Amer) 117.9 ml/min BUN/Creatinine Ratio 3.5 L (10-20) Glucose 105 H (70-99) mg/dl POC Glucose (other) 109 H (70-99) mg/dl Calcium 8.0 L (8.5-10.1) mg/dl POC Ioniz Calcium Marianna 0.97 L (1.12-1.32) mmol/l Magnesium 1.6 L (1.8-2.4) mg/dl COVID-19 Eval Order 11/05/20 Range/Units 17:10 WBC (4.8-10.8) K/uL RBC (4.7-6.1) M/uL Hgb (14.0-18.0) g/dL POC Hgb (14.0-18.0) g/dl Hct (42-52) % POC Hct (42-52) % MCV (80-100) fL MCH (25-34) pg MCHC (32-36) g/dL RDW Std Deviation (36.4-46.3) fL RDW Coeff of Fausto (11.5-14.5) % Plt Count (130-400) K/uL MPV (7.4-10.4) fL Immature Gran % (Auto) % Neut % (Auto) % Lymph % (Auto) % [place] % (Auto) % Eos % (Auto) % Baso % (Auto) % Neut # (Auto) (1.4-6.5) K/uL Lymph # (Auto) (1.2-3.4) K/uL [place] # (Auto) (0.11-0.59) K/uL Eos # (Auto) (0-0.5) K/uL Baso # (Auto) (0-0.2) K/uL Immature Gran # (Auto) (0.00-0.02) K/uL POC Sodium (135-144) mmol/L Sodium (136-145) mmol/L POC Potassium (3.3-5.0) mmol/L Potassium (3.5-5.1) mmol/L POC Chloride (101-112) mmol/L Chloride (98-107) mmol/L Carbon Dioxide (21-32) mmol/L POC Total CO2 (24-31) mmol/L Anion Gap (3-11) POC Anion Gap (16-25) mmol/L POC BUN (7-18) mg/dl BUN (7-18) mg/dl Creatinine (0.6-1.4) mg/dl POC Creatinine (0.6-1.3) mg/dl Est Cr Clr Drug Dosing ml/min Est GFR ( Amer) ml/min Est GFR (Non-Af Amer) ml/min BUN/Creatinine Ratio (10-20) Glucose (70-99) mg/dl POC Glucose (other) (70-99) mg/dl Calcium (8.5-10.1) mg/dl POC Ioniz Calcium Marianna (1.12-1.32) mmol/l Magnesium (1.8-2.4) mg/dl COVID-19 Eval Order Covid19 at [facility] Administered Medications Discontinued Medications Ceftriaxone Sodium (Rocephin) 1,000 mg in 50 mls @ 100 mls/hr IV NOW STA Stop: 11/05/20 16:16 Last Infusion: 11/05/20 16:33 Dose: 0 mls/hr Documented by: [id number] Admin: 11/05/20 16:03 Dose: 100 mls/hr Documented by: [id number] Ioversol (Optiray 320 100ml) 94 ml IV ONCE ONE Stop: 11/05/20 16:29 Last Admin: 11/05/20 16:29 Dose: 94 ml Documented by: [id number] Potassium Chloride (Potassium Chloride Crtab 20 Meq Tabcr) 40 meq PO NOW STA Stop: 11/05/20 16:31 Last Admin: 11/05/20 16:55 Dose: 40 meq Documented by: [id number] Imaging Data Radiologist's Impression: Soft Tissue Neck CT 11/05/20 15:46 CT SCAN OF THE NECK WITH IV CONTRAST CLINICAL HISTORY: Mass below the right ear. COMPARISON STUDY: No priors. TECHNIQUE: Following the IV administration of 94 cc of Optiray 320, CT scan of the soft tissues of the neck was performed from the skull base to the upper chest. Images are reviewed in the axial, sagittal, and coronal planes. IV contrast was administered without complication. A dose lowering technique was utilized adhering to the principles of ALARA. CT DOSE: 527.54 mGy.cm FINDINGS: Pharynx: The epiglottis is normal. Calcified tonsilliths are seen bilaterally. The pharyngeal airway is widely patent. There is no evidence of mass lesion. The vocal cords are symmetric. The parapharyngeal fat is well maintained. The prevertebral/retropharyngeal soft tissues are within normal limits. Lymphadenopathy: There are prominent bilateral cervical chain lymph nodes, right greater than left. A node below the right parotid gland on image #203 measures 1.1 x 0.9 cm. Thyroid: Normal in size and attenuation. Salivary glands: There is a 5.1 x 3.9 x 2.5 cm complex low-attenuation lesion arising from or overlying the right parotid gland. There is no surrounding inf lammation. The right parotid gland is otherwise normal in appearance. The left parotid gland and the subependymal glands are within normal limits. Brain parenchyma: The visualized brain parenchyma at the skull base is normal in appearance. Vascular structures: Unremarkable. Skeletal structures: Imaged portions of the calvarium at the skull base are within normal limits. The cervical spine appears intact. No lytic or blastic lesion is seen. Sinuses and mastoids: Trace mucosal thickening is seen within the maxillary antra. The remaining visualized paranasal sinuses are clear. The mastoid air cells are well pneumatized. Lung apices: Emphysematous change is noted. Patchy groundglass opacities are present in the upper lobes bilaterally. Dentition: There are numerous dental caries and periapical lucencies identified, several of which show overlying cortical breakthrough. IMPRESSION: 1. There is a 5.1 cm complex low-attenuation lesion either arising from or overlying the right parotid gland. There is no surrounding inflammatory change, and a primary parotid lesion is favored over abscess. Clinical correlation will be essential. Nonemergent fine-needle aspiration will likely be required for definitive characterization. 2. Emphysema. 3. Patchy groundglass opacities are present in the upper lobes bilaterally. Correlate clinically for evidence of a mild infectious/inflammatory pneumonitis. 4. There are numerous dental caries and periapical lucencies, several of which show overlying cortical breakthrough. Nonemergent follow-up with dentistry is recommended. ACT 112: Negative or not required by law. Electronically signed by: Rico Bruce M.D. 11/05/2020 4:47 PM Discharge Plan Visit Data Chief Complaint: Facial Injury/Pain Stated Complaint: ABSCESS ED Provider: Aneesh De La Garza Discharge Problem: Acute hypokalemia, Hypomagnesemia, Abnormal EKG, Facial mass Forms Stand Alone Forms: My [facility] Prescriptions Prescriptions: No Action Invega Sustenna 117 mg/0.75 mL syringe 0 mg IM MONTHLY RF: 0
[2020-11-05 16:09] LABS: Eosinophils # (auto) 0.12 K/uL (0-0.5); Eosinophils % (auto) 1.8 %; Hematocrit (blood only) 30.2 % (42-52); Hemoglobin 10.3 g/dL (14.0-18.0); Immature Granulocytes # (auto) 0.05 K/uL (0.00-0.02); Immature Granulocytes % (auto) 0.8 %; Lymphocytes # (auto) 1.95 K/uL (1.2-3.4); Mean Corpuscular Hemoglobin 31.7 pg (25-34); Mean Corpuscular Hgb Conc 34.1 g/dL (32-36); Mean Corpuscular Volume 92.9 fL (80-100); Mean Platelet Volume 8.6 fL (7.4-10.4); Monocytes # (auto) 0.19 K/uL (0.11-0.59); Monocytes % (auto) 2.9 %; Neutrophils % (auto) 64.5 %; Platelet Count 342 K/uL (130-400); Red Blood Count 3.25 M/uL (4.7-6.1); White Blood Count 6.51 K/uL (4.8-10.8)
[2020-11-05 16:16] LABS: iSTAT Blood Urea Nitrogen < 3 mg/dl (7-18); iSTAT Carbon Dioxide 27 mmol/L (24-31); iSTAT Chloride 84 mmol/L (101-112); iSTAT Creatinine 0.7 mg/dl (0.6-1.3); iSTAT Glucose 109 mg/dl (70-99); iSTAT Hematocrit 35 % (42-52); iSTAT Hemoglobin 11.9 g/dl (14.0-18.0); iSTAT Ionized Calcium 0.97 mmol/l (1.12-1.32); iSTAT Potassium 2.1 mmol/L (3.3-5.0); iSTAT Sodium 131 mmol/L (135-144)
[2020-11-05 16:28] LABS: BUN Creatinine Ratio 3.5 (10-20); Creatinine Clr Calc Pharmacy 154.6 ml/min; Est GFR (African American) 136.7 ml/min; Est GFR (Non-African American) 117.9 ml/min
[2020-11-05] MEDS ORDERED: OPTIRAY 320 100ml IV ONE (16:28)
[2020-11-05] MEDS ORDERED: LIDOCAINE 2%/EPINEPHRINE 1:100,000 20ML INFIL ONE (16:30)
[2020-11-05] MEDS ORDERED: POTASSIUM CHLORIDE CRTAB 20 MEQ TABCR PO STA (16:30)
--- NOTE | 2020-11-05 16:48 | CT Scan Report ---
CT SCAN OF THE NECK WITH IV CONTRAST CLINICAL HISTORY: Mass below the right ear. COMPARISON STUDY: No priors. TECHNIQUE: Following the IV administration of 94 cc of Optiray 320, CT scan of the soft tissues of e neck was performed from the skull base to the upper chest. Images are reviewed in the axial, sagitt al, and coronal planes. IV contrast was administered without complication. A dose lowering techniqu e was utilized adhering to the principles of ALARA. CT DOSE: 527.54 mGy.cm FINDINGS: Pharynx: The epiglottis is normal. Calcified tonsilliths are seen bilaterally. The pharyngeal airway is widely patent. There is no evidence of mass lesion. The vocal cords are symmetric. The parapharyng eal fat is well maintained. The prevertebral/retropharyngeal soft tissues are within normal limits. Lymphadenopathy: There are prominent bilateral cervical chain lymph nodes, right greater than left. A node below the right parotid gland on image #203 measures 1.1 x 0.9 cm. Thyroid: Normal in size and attenuation. Salivary glands: There is a 5.1 x 3.9 x 2.5 cm complex low-attenuation lesion arising from or overlyi ng the right parotid gland. There is no surrounding inflammation. The right parotid gland is otherwis e normal in appearance. The left parotid gland and the subependymal glands are within normal limits. Brain parenchyma: The visualized brain parenchyma at the skull base is normal in appearance. Vascular structures: Unremarkable. Skeletal structures: Imaged portions of the calvarium at the skull base are within normal limits. The cervical spine appears intact. No lytic or blastic lesion is seen. Sinuses and mastoids: Trace mucosal thickening is seen within the maxillary antra. The remaining visu alized paranasal sinuses are clear. The mastoid air cells are well pneumatized. Lung apices: Emphysematous change is noted. Patchy groundglass opacities are present in the upper lob es bilaterally. Dentition: There are numerous dental caries and periapical lucencies identified, several of which [place] w overlying cortical breakthrough. IMPRESSION: 1. There is a 5.1 cm complex low-attenuation lesion either arising from or overlying the right paroti d gland. There is no surrounding inflammatory change, and a primary parotid lesion is favored over ab scess. Clinical correlation will be essential. Nonemergent fine-needle aspiration will likely be requ ired for definitive characterization. 2. Emphysema. 3. Patchy groundglass opacities are present in the upper lobes bilaterally. Correlate clinically for evidence of a mild infectious/inflammatory pneumonitis. 4. There are numerous dental caries and periapical lucencies, several of which show overlying cortica l breakthrough. Nonemergent follow-up with dentistry is recommended. ACT 112: Negative or not required by law. Electronically signed by: Rico Bruce M.D. 11/05/2020 4:47 PM
[2020-11-05 17:00] LABS: Magnesium 1.6 mg/dl (1.8-2.4)
[2020-11-05] MEDS ORDERED: metroNIDAZOLE 500 MG/100 ML BAG IV STA (17:15)
[2020-11-05] MEDS: POTASSIUM CHLORIDE / WTR 10 MEQ/100 ML PLCT IV SCH ×2 (17:25→20:05)
[2020-11-05] MEDS ORDERED: SODIUM CHLORIDE 0.9% 1000ML 2,000 ML IV ONE (17:26)
[2020-11-05] MEDS ORDERED: POTASSIUM CHLORIDE CRTAB 20 MEQ TABCR PO ONE (18:00)
--- NOTE | 2020-11-05 18:38 | History & Physical Report ---
Date of Service November 05, 2020 Assessment & Plan (1) Facial abscess: (2) Facial mass: (3) Acute hypokalemia: (4) Hypomagnesemia: (5) Hyponatremia: (6) Depression: (7) Anemia: (8) Tobacco use disorder: Patient was given Rocephin and Flagyl in the ER, ENT has been consulted Dr. Flower who is reviewing the films, I started the patient on clindamycin and will continue the Flagyl. We will replete electrolytes, magnesium, potassium, gentle IV fluids with potassium, monitor daily labs, n.p.o. for now, inpatient status. Pain control. History of Present Illness Chief Complaint: Facial swelling Primary Care Provider: Kenneth Agrawal DO 40-year-old male with a past medical history of hidradenitis suppurativa, paranoid schizophrenia, gluteal abscess and cellulitis, perirectal abscesses, depression, anemia, tobacco use disorder and buttock abscess presents the emergency room with a right facial fluctuant mass. He said it started on Tuesday and got progressively worse over the weekend, it was not painful until today when it started ache a little bit about a 2 out of 10. He denies any trauma to the area, denies any fevers, chills, nausea, vomiting. The ER doctor ran the case by ENT who will see the patient in consult. Allergies Allergy/AdvReac Type Severity Reaction Status Date / Time Penicillins Allergy Severe Rash Verified 11/05/20 15:40 Home Medications Medication Instructions Recorded Confirmed Type Invega Sustenna 0 mg IM MONTHLY 10/23/19 11/05/20 History Past Med/Surg History Medical History (Updated 11/05/20 @ 18:36 by Sidney Hughes DO) Depression Paranoid schizophrenia Paranoid schizophrenia Perianal abscess Perirectal abscess Tobacco use disorder Surgical History History of incision and drainage Family History Other Cancer Denies family history of Schizophrenia Social History Smoking Status: Current every day smoker Tobacco Type: Cigarettes packs per day: 0.5; Cigarettes Per Day: 10; Second Hand Exposure: Yes; Hx Alcohol Use: No Hx Substance Use: No Preferred Language: Sinhala Communication Ability: Effective Building Economist Required: No Beliefs That Will Affect Care: None marital status: Single Current Living Situation: Family Current Living Situation Comment: pt reports currently living with his parents current occupational status: disabled Feels Safe at Home: Yes during the past year weight has: remained stable Assistive Devices: None Review of Systems Review of Systems: ROS-No Headache, No Visual Changes, No Nausea, No Vomiting, No Fever, No Chills, No Neck Pain or Stiffness, No Chest Pain, No Palpitations, No SOB, No REED, No Cough, No Sputum, No Wheezing, No Abdominal Pain, No Diarrhea, No Hematemesis, No Hemoptysis, No Unexpected Weight Loss, No Flank pain, No Melena, No Hematochezia, No Frequency, No Urgency, No Burning, No Hematuria, No Rashes, No Diaphoresis. Appetite is Normal, positive right facial pain Physical Exam Gen-AAO x 3, NAD, Afebrile Head-large fluctuant mass on the right side of the face anterior to the ear in the parotid area or slightly posterior to the parotid area, a pustular head is seen. No marked erythema in the area, EOMI, PERRLA, Anicteric Sclera, No Posterior Pharyngeal Erythema Neck-Supple, No JVD, No Thyromegaly, No Masses, No LAD, No Bruits Lungs-Clear to Auscultation Bilaterally, No Rales, No Rhonchi, No Wheezing, No Crepitus Chest-No S4, +S1, +S2, No S3, No Murmurs, No Rubs, No Gallops, No Ectopy Abdomen-Soft, Bowel Sounds Present, Non Tender, Non Distended, No Hepatomegaly, No Splenomegaly, No Palpable Masses, No Rebound, No Rigidity, No Guarding Musculoskeletal-Full Range of Motion Bilaterally, No CVAT Extremities-No Cyanosis, No Clubbing, No Edema Nuero-Cranial Nerves II-XII grossly intact, Motor WNL, DTRs WNL, Strength WNL, Non Focal Psych-Normal Mood Results & Data Results & Data ([facility]) Vital Signs (Past 12 Hours) Vital Signs Temp Pulse Resp BP Pulse Ox 11/05/20 17:00 125/79 11/05/20 16:44 109 H 16 146/77 H 99 11/05/20 15:10 36.3 C L 113 H 20 136/89 99 Allergies Penicillins Allergy (Severe, Verified 11/05/20 15:40) Rash Height/Weight/Isolation Height 6 ft Weight 79.5 kg CBC 11/05/20 11/05/20 11/05/20 15:54 15:54 16:03 WBC 6.51 RBC 3.25 L Hgb 10.3 L POC Hgb 11.9 L Hct 30.2 L POC Hct 35 L MCV 92.9 MCH 31.7 MCHC 34.1 RDW Std Deviation 51.0 H RDW Coeff of Fausto 15.0 H Plt Count 342 MPV 8.6 Immature Gran % (Auto) 0.8 Neut % (Auto) 64.5 Lymph % (Auto) 30.0 [place] % (Auto) 2.9 Eos % (Auto) 1.8 Baso % (Auto) 0.0 Neut # (Auto) 4.20 Lymph # (Auto) 1.95 [place] # (Auto) 0.19 Eos # (Auto) 0.12 Baso # (Auto) 0.00 Immature Gran # (Auto) 0.05 H POC Sodium 131 L Sodium 130 L POC Potassium 2.1 L* Potassium 2.0 L* POC Chloride 84 L Chloride 90 L Carbon Dioxide 30 POC Total CO2 27 Anion Gap 10.0 POC Anion Gap 23.0 POC BUN < 3 L BUN 2 L Creatinine 0.69 POC Creatinine 0.7 Est Cr Clr Drug Dosing 154.6 Est GFR ( Amer) 136.7 Est GFR (Non-Af Amer) 117.9 BUN/Creatinine Ratio 3.5 L Glucose 105 H POC Glucose (other) 109 H Calcium 8.0 L POC Ioniz Calcium [place] 0.97 L Magnesium 1.6 L COVID-19 Eval Order 11/05/20 17:10 WBC RBC Hgb POC Hgb Hct POC Hct MCV MCH MCHC RDW Std Deviation RDW Coeff of Fausto Plt Count MPV Immature Gran % (Auto) Neut % (Auto) Lymph % (Auto) [place] % (Auto) Eos % (Auto) Baso % (Auto) Neut # (Auto) Lymph # (Auto) [place] # (Auto) Eos # (Auto) Baso # (Auto) Immature Gran # (Auto) POC Sodium Sodium POC Potassium Potassium POC Chloride Chloride Carbon Dioxide POC Total CO2 Anion Gap POC Anion Gap POC BUN BUN Creatinine POC Creatinine Est Cr Clr Drug Dosing Est GFR ( Amer) Est GFR (Non-Af Amer) BUN/Creatinine Ratio Glucose POC Glucose (other) Calcium POC Ioniz Calcium [place]na Magnesium COVID-19 Eval Order Covid19 at [facility] Chemistry 11/05/20 15:54 Sodium 130 L Potassium 2.0 L* Chloride 90 L Carbon Dioxide 30 Anion Gap 10.0 BUN 2 L Creatinine 0.69 Glucose 105 H Code Status & VTE Plan VTE Prophylaxis Plan VTE Prophylaxis will be ordered: Yes (1) Depression Depression Type: unspecified Qualified Code(s): F32.9 - Major depressive disorder, single episode, unspecified (2) Anemia Anemia type: unspecified type Qualified Code(s): D64.9 - Anemia, unspecified
[2020-11-05] MEDS: MAGNESIUM SULFATE / D5W 1 GM/100 ML BAG IV SCH ×2 (18:57→20:05)
[2020-11-05] MEDS ORDERED: ACETAMINOPHEN 325 MG TAB PO PRN (20:50)
[2020-11-05] MEDS ORDERED: ONDANSETRON INJ 2 MG/ML 2 ML VIAL IV PRN (20:50)
[2020-11-05] MEDS: NSS + 20MEQ KCL 20 MEQ/1,000 ML BAG IV SCH (22:20)
[2020-11-05] MEDS: CLINDAMYCIN 600 MG in DEXTROSE 5% 50 ML IV SCH (22:20)
[2020-11-06] MEDS: metroNIDAZOLE 500 MG/100 ML BAG IV SCH ×2 (02:19→09:20)
[2020-11-06] MEDS: CLINDAMYCIN 600 MG in DEXTROSE 5% 50 ML IV SCH ×3 (05:24→21:56)
[2020-11-06 06:25] LABS: Basophils # (auto) 0.01 K/uL (0-0.2); Basophils % (auto) 0.2 %; Eosinophils # (auto) 0.12 K/uL (0-0.5); Eosinophils % (auto) 2.5 %; Hematocrit (blood only) 27.1 % (42-52); Hemoglobin 8.9 g/dL (14.0-18.0); Immature Granulocytes # (auto) 0.02 K/uL (0.00-0.02); Immature Granulocytes % (auto) 0.4 %; Lymphocytes # (auto) 2.36 K/uL (1.2-3.4); Lymphocytes % (auto) 48.8 %; Mean Corpuscular Hemoglobin 31.7 pg (25-34); Mean Corpuscular Hgb Conc 32.8 g/dL (32-36); Mean Corpuscular Volume 96.4 fL (80-100); Mean Platelet Volume 8.6 fL (7.4-10.4); Monocytes # (auto) 0.22 K/uL (0.11-0.59); Monocytes % (auto) 4.5 %; Neutrophils # (auto) 2.11 K/uL (1.4-6.5); Neutrophils % (auto) 43.6 %; Platelet Count 302 K/uL (130-400); RDW Coefficient of Variation 15.3 % (11.5-14.5); RDW Standard Deviation 54.2 fL (36.4-46.3); Red Blood Count 2.81 M/uL (4.7-6.1); White Blood Count 4.84 K/uL (4.8-10.8)
[2020-11-06 07:23] LABS: BUN Creatinine Ratio 4.6 (10-20); Calcium 7.8 mg/dl (8.5-10.1); Creatinine Clr Calc Pharmacy 174.9 ml/min; Est GFR (African American) 143.8 ml/min; Magnesium 2.3 mg/dl (1.8-2.4); Phosphorus 2.5 mg/dl (2.5-4.9); Potassium 2.9 mmol/L (3.5-5.1)
[2020-11-06] MEDS: NSS + 20MEQ KCL 20 MEQ/1,000 ML BAG IV SCH ×2 (08:38→17:05)
[2020-11-06] MEDS ORDERED: POTASSIUM CHLORIDE CRTAB 20 MEQ TABCR PO ONE (10:10)
--- NOTE | 2020-11-06 10:13 | ENT Consultation ---
Date of Consultation November 06, 2020 Assessment & Plan (1) Cyst of face: 40-year-old male with history of paranoid schizophrenia, chronic gluteal abscess admitted with electrolyte abnormalities and large cystic lesion overlying or involving R parotid. This is minimally tender on exam and the patient has no fever or white count. CT neck with contrast shows a large cystic lesion without inflammatory changes. Due to imaging and clinical features, as well as patient's prior history of lesions in this region, this appears to be an underlying cystic lesion (1st branchial cleft cyst type 2 vs. parotid lesion vs. epidermal inclusion cyst) with possible superinfection rather than an abscess. -Recommend FNA of R facial lesion - would send for culture and pathology to rule out primary parotid malignancy or metastasis. This will be both diagnostic and therapeutic -Continue antibiotics - clindamycin is reasonable if history of MRSA -Warm compresses, sialogogues, adequate hydration to reduce risk of reactive sialoadenitis -OK for PO from ENT standpoint History of Present Illness Reason for Consultation: R facial cyst Attending Physician: Osmar Elena MD History of Present Illness 40-year-old male with a history of hidradenitis, chronic gluteal abscess, paranoid schizophrenia admitted to the hospital after presenting with right facial swelling. Patient reports right-sided facial swelling over his R parotid which began approximately 2 weeks ago and increased over the past 1 week. He has had prior episodes of swelling at this site in the past, each time has spontaneously drained. He has never undergone biopsy. He denies significant discomfort or fevers. No facial weakness. He is a current half pack per day smoker. No prior history of skin cancer. No head or neck radiation. In ED, patient noted to have electrolyte abnormalities. CT neck with contrast personally reviewed and shows superficial lesion involving or overlying R parotid gland without significant inflammatory changes, mild subcentimeter bilateral cervical lymphadnopathy Allergies Allergy/AdvReac Type Severity Reaction Status Date / Time Penicillins Allergy Severe Rash Verified 11/05/20 15:40 Home Medications Medication Instructions Recorded Confirmed Type Invega Sustenna 0 mg IM MONTHLY 10/23/19 11/05/20 History Patient History Medical History (Updated 11/06/20 @ 10:08 by Houston Flower MD) Depression Paranoid schizophrenia Paranoid schizophrenia Perianal abscess Perirectal abscess Tobacco use disorder Surgical History History of incision and drainage Family History Other Cancer Denies family history of Schizophrenia Social History Smoking Status: Current every day smoker Tobacco Type: Cigarettes packs per day: 0.5; Cigarettes Per Day: 10; Second Hand Exposure: Yes; Hx Alcohol Use: No Hx Substance Use: No Preferred Language: Salvadorean Communication Ability: Effective Mechanist Required: No Beliefs That Will Affect Care: None marital status: Single Current Living Situation: Alone Current Living Situation Comment: pt reports currently living with his parents current occupational status: disabled Other Information That Helps Us Care for You: No Feels Safe at Home: Yes Safety Concerns: Feels Safe At This Time during the past year weight has: remained stable Assistive Devices: None Review of Systems Review of Systems: All systems reviewed & are unremarkable except as noted in HPI & below Physical Exam Physical Exam: General: The patient is well-developed, well-nourished, and in no acute distress. Head and Face: Skull: No obvious deformities Sinus tenderness: There is no tenderness to palpation of the sinuses. Salivary glands: 4-5cm fluctuant superficial lesion overlying R parotid with minimal tenderness to palpation, mild overlying skin erythema. No drainage. No palpable stone. Clear saliva expressed from bilateral Quinten's ducts. Facial strength: Facial motion is symmetric and without weakness. Eyes: Eyelids: There is no periorbital edema. Conjunctiva: There is no conjunctival erythema. Pupils: The pupils are equal, round, and reactive to light. Extraocular muscles: Extraocular movement is normal. Nystagmus: There is no nystagmus. Ears: Right auricle: The pinna is normally formed without skin lesion or mass. Left auricle: The pinna is normally formed without skin lesion or mass. Right EAC: There is no external auditory canal erythema, edema, lesion, or mass. Left EAC: There is no external auditory canal erythema, edema, lesion, or mass. Right TM/middle ear: TM is intact without perforation, flat, and translucent. The middle ear space is clear Left TM/middle ear: TM is intact without perforation, flat, and translucent. The middle ear space is clear Hearing: Clinical speech administrative receptionist threshold testing is grossly normal. Nose: External: There is no gross external deformity, tenderness, or skin lesion or mass. Mucosa: There is no nasal mucosal edema, inflammation, lesion, or mass. Septum: The nasal septum is deviated to the left. Nasal cavity: There is no inferior turbinate hypertrophy, edema, inflammation, or mass bilaterally. The inferior meatus and middle meatus were clear bilaterally without mass, lesion, mucopurulence, or polyposis. Oral cavity/Oropharynx: Lips: There are no lip lesions or masses. Oral cavity: There is no inflammation, lesion, or mass involving the gums, gingiva, floor of mouth, buccal mucosa, retromolar trigone, hard palate, soft palate, tongue. Dentition is intact. Oropharynx: There is no inflammation, lesion, or mass involving the palatine tonsils or posterior pharyngeal wall. Neck: General: There are no visible scars or lesions involving the neck. There are no visible or palpable masses involving the neck. The trachea is midline. Lymph nodes: There is no visible or palpable neck lymphadenopathy. Thyroid: There is no visible or palpable thyroid enlargement or nodularity. Respiratory/Pulmonary: There is no stertor or stridor. There is normal respiratory effort without acute distress. Cardiovascular: There is no visible extremity edema. Skin: There are no visible lesions or masses involving the skin of the head and neck region. Multiple dilated pores Neurological: Cranial nerves: Cranial nerve II is noted to be intact by grossly normal visual acuity. Cranial nerves III, IV, and are noted to be intact by normal extraocular movements. Cranial nerve V is noted to be intact by normal facial sensation. Cranial nerve VII is noted to be intact by symmetric and normal facial movement. Cranial nerve VIII is noted to be intact by a relatively normal clinical speech administrative receptionist threshold. Cranial nerve IX is noted to be intact by an intact gag reflex and normal palatal movement. Cranial nerve X is noted to be intact by a normal voice. Cranial nerve XI is noted to be intact by normal shoulder and head movement. Cranial nerve XII is noted to be intact by normal symmetric tongue movement. Vestibular system: There is no spontaneous or gaze evoked nystagmus. Psychiatric: Mental status: The patient is awake and alert. Mood/affect: The patient has a normal mood and affect. Results & Data ([facility]) Vital Signs (Past 12 Hours) Vital Signs Temp Pulse Resp BP Pulse Ox 11/06/20 07:08 37 C 86 16 89/52 L 94 11/05/20 23:35 36.7 C 82 18 113/76 100 PG Care Time/CCT Total # of Minutes Spent Total Time Spent with Patient: Total time spent is greater than 50% in coordination of care (as documented) at patient's floor/unit and/or counseling patient: Coding Level of Care Code 53358 Initial Inpt Care Lvl 2 Diagnoses Cyst of face
[2020-11-06] MEDS: POTASSIUM CHLORIDE / WTR 10 MEQ/100 ML PLCT IV SCH ×2 (11:07→12:09)
[2020-11-06] MEDS ORDERED: PALIPERIDONE PALMITATE 117 MG/0.75 ML SYR IM ONE (14:30)
--- NOTE | 2020-11-06 15:05 | Electrocardiogram Report ---
Test Reason : Blood Pressure : / mmHG Vent. Rate : 100 BPM Atrial Rate : 100 BPM P-R Int : 150 ms QRS Dur : 104 ms QT Int : 428 ms P-R-T Axes : 031 072 043 degrees QTc Int : 552 ms Poor data quality, interpretation may be adversely affected Normal sinus rhythm Prolonged QT Abnormal ECG When compared with ECG of 23-JAN-2020 21:33, QRS duration has increased Confirmed by Felipe Knight ([id number]) on 11/06/2020 3:05:14 PM Referred By: REFERRED SELF Confirmed By:Brad Knight
--- NOTE | 2020-11-06 16:02 | Hospitalist Progress Note ---
Date of Service November 06, 2020 Assessment & Plan (1) Facial mass: Right facial cyst/mass DD: Brachial cyst/parotid lesion/epidermal inclusion cyst/abscess -Neck CT:There is a 5.1 cm complex low-attenuation lesion either arising from or overlying the right parotid gland. There is no surrounding inflammatory change, and a primary parotid lesion is favored over abscess. Clinical correlation will be essential. Nonemergent fine-needle aspiration will likely be required for definitive characterization. Emphysema. Patchy groundglass opacities are present in the upper lobes bilaterally. Correlate clinically for evidence of a mild infectious/inflammatory pneumonitis. There are numerous dental caries and periapical lucencies, several of which show overlying cortical breakthrough. Nonemergent follow-up with dentistry is recommended. 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 DVT Px: Heparin SQ Admission and Anticipated Discharge Date Admission Date: November 05, 2020 Subjective Patient is seen and examined at bedside States having some pain at right parotid region Denies dysphagia, odynophagia Poor historian Also denies any chest pain, dizziness, dyspnea, abdominal pain Offers no other complaints Review of Systems Review of Systems: All systems reviewed & are unremarkable except as noted in HPI & below Physical Exam Physical Exam: Physical Exam: Vitals signs as noted above General Appearance:Moderately built and nourished, no apparent distress Head: normocephalic, Atraumatic , Right Parotid region swelling Eyes: normal inspection, EOMI Neck: supple, Trachea midline Respiratory/Chest: Normal breath sounds, CTA Cardiovascular: S1, S2, No murmur Abdomen/GI:Soft, Non tender, Bowel sounds present Extremities/Musculoskeletal:normal inspection, no edema Neurologic/Psych:Alert, awake, grossly no focal neurological deficits Skin: normal color, warm Results & Data Results & Data ([facility]) Vital Signs (Past 12 Hours) Vital Signs Temp Pulse Resp BP Pulse Ox 11/06/20 07:08 37 C 86 16 89/52 L 94 Laboratory Results Short CBC 11/05/20 11/06/20 Range/Units 15:54 06:00 WBC 6.51 4.84 (4.8-10.8) K/uL Hgb 10.3 L 8.9 L (14.0-18.0) g/dL Hct 30.2 L 27.1 L (42-52) % Plt Count 342 302 (130-400) K/uL BMP 11/05/20 11/06/20 15:54 06:00 Sodium 130 L 144 D Potassium 2.0 L* 2.9 L D Chloride 90 L 109 H Carbon Dioxide 30 30 BUN 2 L 3 L Creatinine 0.69 0.61 Glucose 105 H 84 Calcium 8.0 L 7.8 L
[2020-11-06] MEDS: HEPARIN SOD 5,000 UNIT/0.5 ML VIAL SQ SCH (20:50)
[2020-11-07] MEDS: NSS + 20MEQ KCL 20 MEQ/1,000 ML BAG IV SCH ×3 (00:57→19:52)
[2020-11-07] MEDS: CLINDAMYCIN 600 MG in DEXTROSE 5% 50 ML IV SCH ×3 (05:33→21:57)
[2020-11-07 07:22] LABS: Hematocrit (blood only) 25.4 % (42-52); Hemoglobin 8.4 g/dL (14.0-18.0); Mean Corpuscular Hemoglobin 31.6 pg (25-34); Mean Corpuscular Hgb Conc 33.1 g/dL (32-36); Mean Corpuscular Volume 95.5 fL (80-100); Mean Platelet Volume 8.7 fL (7.4-10.4); Platelet Count 267 K/uL (130-400); RDW Coefficient of Variation 15.9 % (11.5-14.5); RDW Standard Deviation 55.5 fL (36.4-46.3); Red Blood Count 2.66 M/uL (4.7-6.1); White Blood Count 5.76 K/uL (4.8-10.8)
[2020-11-07 07:24] LABS: BUN Creatinine Ratio 6.1 (10-20); Blood Urea Nitrogen 3 mg/dl (7-18); Calcium 7.5 mg/dl (8.5-10.1); Carbon Dioxide 29 mmol/L (21-32); Chloride 112 mmol/L (98-107); Creatinine Clr Calc Pharmacy 197.6 ml/min; Est GFR (African American) > 150.0 ml/min; Est GFR (Non-African American) 130.4 ml/min; Glucose 77 mg/dl (70-99); Magnesium 1.6 mg/dl (1.8-2.4); Potassium 3.2 mmol/L (3.5-5.1); Sodium 145 mmol/L (136-145)
[2020-11-07] MEDS: HEPARIN SOD 5,000 UNIT/0.5 ML VIAL SQ SCH ×3 (07:49→21:16)
[2020-11-07] MEDS ORDERED: POTASSIUM CHLORIDE CRTAB 20 MEQ TABCR PO ONE (08:04)
--- NOTE | 2020-11-07 08:09 | Hospitalist Progress Note ---
Date of Service November 07, 2020 Assessment & Plan (1) Facial mass: Right facial cyst/mass DD: Brachial cyst/parotid lesion/epidermal inclusion cyst/abscess -Neck CT:There is a 5.1 cm complex low-attenuation lesion either arising from or overlying the right parotid gland. There is no surrounding inflammatory change, and a primary parotid lesion is favored over abscess. Clinical correlation will be essential. Nonemergent fine-needle aspiration will likely be required for definitive characterization. Emphysema. Patchy groundglass opacities are present in the upper lobes bilaterally. Correlate clinically for evidence of a mild infectious/inflammatory pneumonitis. There are numerous dental caries and periapical lucencies, several of which show overlying cortical breakthrough. Nonemergent follow-up with dentistry is recommended. -Continue clindamycin -Pain control -Warm compresses, IV fluids Appreciate ENT input Plan for FNAC of right facial lesion as able Electrolyte imbalances Hyponatremia Hypokalemia Hypomagnesemia Replace electrolytes as needed Monitor Chronic anemia Hemoglobin drop likely dilutional secondary to IV fluids Monitor CBC No obvious bleeding issues Depression Paranoid schizophrenia on Invega Sustenna monthly--received on 11/06/20 Tobacco use disorder relationship counselor to quit DVT Px: Heparin SQ Admission and Anticipated Discharge Date Admission Date: November 05, 2020 Subjective Patient is seen and examined at bedside Persistent right parotid swelling pain Denies dysphagia, odynophagia, chest pain, dizziness, dyspnea, abdominal pain No other complaints Review of Systems Review of Systems: All systems reviewed & are unremarkable except as noted in HPI & below Physical Exam Physical Exam: Physical Exam: Vitals signs as noted above General Appearance:Moderately built and nourished, no apparent distress Head: normocephalic, Atraumatic , Right Parotid region swelling, tenderness Eyes: normal inspection, EOMI Neck: supple, Trachea midline Respiratory/Chest: Normal breath sounds, CTA Cardiovascular: S1, S2, No murmur Abdomen/GI:Soft, Non tender, Bowel sounds present Extremities/Musculoskeletal:normal inspection, no edema Neurologic/Psych:Alert, awake, grossly no focal neurological deficits Skin: normal color, warm Results & Data Results & Data ([facility]) Vital Signs (Past 12 Hours) Vital Signs Temp Pulse Resp BP Pulse Ox 11/06/20 23:18 37.1 C 80 14 103/64 98 Laboratory Results Short CBC 11/07/20 Range/Units 06:22 WBC 5.76 (4.8-10.8) K/uL Hgb 8.4 L (14.0-18.0) g/dL Hct 25.4 L (42-52) % Plt Count 267 (130-400) K/uL [facility] 11/07/20 06:22 Sodium 145 Potassium 3.2 L Chloride 112 H Carbon Dioxide 29 BUN 3 L Creatinine 0.54 L Glucose 77 Calcium 7.5 L
[2020-11-07] MEDS: MAGNESIUM CHLORIDE 64MG DELAYED REL TAB PO SCH ×2 (08:20→21:16)
[2020-11-07] MEDS ORDERED: MAGNESIUM SULFATE / D5W 1 GM/100 ML BAG IV ONE (08:30)
--- NOTE | 2020-11-07 14:05 | Ears,Nose,Throat Progress Note ---
Date of Service November 07, 2020 Assessment & Plan (1) Cyst of face: 40-year-old male with history of paranoid schizophrenia, chronic gluteal abscess admitted with electrolyte abnormalities and large cystic lesion overlying or involving R parotid. No fever or white count. CT neck with contrast shows a large cystic lesion without inflammatory changes. Due to imaging and clinical features, as well as patient's prior history of lesions in this region, this appears to be an underlying cystic lesion (1st branchial cleft cyst type 2 vs. parotid lesion vs. epidermal inclusion or sebaceous cyst) with possible superinfection rather than an abscess. Decompressed after FNA. -Recommend FNA of R facial lesion - would send for culture and pathology to rule out primary parotid malignancy or metastasis. This will be both diagnostic and therapeutic -Continue antibiotics - clindamycin is reasonable if history of MRSA -Warm compresses, sialogogues, adequate hydration for reactive sialoadenitis -OK for PO from ENT standpoint -OK for discharge once clinically improved, should go home on 10 days of antibiotics. Follow up in 3-4 weeks [phone] Admission and Anticipated Discharge Date Admission Date: November 05, 2020 Subjective SOLIS o/n. Lesion began to drain spontaneously. Went for FNA today. pain and swelling improving. Physical Exam Physical Exam: Decompression of R fluctuant superficial facial mass, some serous drainage expressed No overlying cellulitis Moderate induration of R parotid No purulence expressed from Quinten's duct Neck soft and nontender Facial nerve function intact bilaterally Results & Data ([facility]) Vital Signs (Past 12 Hours) Vital Signs Temp Pulse Resp BP Pulse Ox 11/07/20 07:35 37.1 C 80 20 124/72 93 Coding Level of Care Code 53802 Subseq Hosp Care Lvl 2 Diagnoses Cyst of face
[2020-11-07] MEDS: NICOTINE POLACRILEX 2 MG GUM MT PRN (23:54)
[2020-11-08] MEDS: NICOTINE POLACRILEX 2 MG GUM MT PRN ×2 (01:44→04:39)
[2020-11-08] MEDS: CLINDAMYCIN 600 MG in DEXTROSE 5% 50 ML IV SCH ×3 (05:34→21:29)
[2020-11-08] MEDS: MAGNESIUM CHLORIDE 64MG DELAYED REL TAB PO SCH ×2 (08:32→21:30)
[2020-11-08] MEDS: HEPARIN SOD 5,000 UNIT/0.5 ML VIAL SQ SCH ×2 (08:32→21:29)
[2020-11-08] MEDS: NSS + 20MEQ KCL 20 MEQ/1,000 ML BAG IV SCH (08:32)
[2020-11-08 09:42] LABS: Hematocrit (blood only) 25.9 % (42-52); Hemoglobin 8.6 g/dL (14.0-18.0); Mean Corpuscular Hemoglobin 31.5 pg (25-34); Mean Corpuscular Hgb Conc 33.2 g/dL (32-36); Mean Corpuscular Volume 94.9 fL (80-100); Mean Platelet Volume 8.6 fL (7.4-10.4); Platelet Count 228 K/uL (130-400); RDW Coefficient of Variation 15.7 % (11.5-14.5); RDW Standard Deviation 54.7 fL (36.4-46.3); Red Blood Count 2.73 M/uL (4.7-6.1); White Blood Count 5.87 K/uL (4.8-10.8)
[2020-11-08 10:08] LABS: BUN Creatinine Ratio 7.2 (10-20); Calcium 7.7 mg/dl (8.5-10.1); Est GFR (African American) 146.8 ml/min; Est GFR (Non-African American) 126.6 ml/min; Magnesium 1.4 mg/dl (1.8-2.4); Potassium 3.1 mmol/L (3.5-5.1)
[2020-11-08] MEDS ORDERED: POTASSIUM CHLORIDE CRTAB 20 MEQ TABCR PO SCH (11:45)
[2020-11-08] MEDS: MAGNESIUM SULFATE / D5W 1 GM/100 ML BAG IV SCH ×2 (13:39→16:27)
--- NOTE | 2020-11-08 15:20 | Hospitalist Progress Note ---
Date of Service November 08, 2020 Assessment & Plan (1) Facial mass: Right facial cyst/mass DD: Brachial cyst/parotid lesion/epidermal inclusion cyst/abscess -Neck CT:There is a 5.1 cm complex low-attenuation lesion either arising from or overlying the right parotid gland. There is no surrounding inflammatory change, and a primary parotid lesion is favored over abscess. Clinical correlation will be essential. Nonemergent fine-needle aspiration will likely be required for definitive characterization. Emphysema. Patchy groundglass opacities are present in the upper lobes bilaterally. Correlate clinically for evidence of a mild infectious/inflammatory pneumonitis. There are numerous dental caries and periapical lucencies, several of which show overlying cortical breakthrough. Nonemergent follow-up with dentistry is recommended. -Continue clindamycin -Pain control -Warm compresses, Received IV fluids Appreciate ENT input Had FNAC of right facial lesion on 11/07/20 Pathology Pending Plan to transition to p.o. antibiotics tomorrow Needs follow-up with ENT upon discharge Electrolyte imbalances Hyponatremia Hypokalemia Hypomagnesemia Replace electrolytes as needed Monitor Chronic anemia Hemoglobin drop likely dilutional secondary to IV fluids Monitor CBC No obvious bleeding issues Depression Paranoid schizophrenia on Invega Sustenna monthly--received on 11/06/20 Tobacco use disorder personal counselor to quit DVT Px: Heparin SQ Admission and Anticipated Discharge Date Admission Date: November 05, 2020 Subjective Patient is seen and examined at bedside Right parotid swelling pain improving Had FNAC yesterday Eager to get discharged Denies dysphagia, odynophagia, chest pain, dizziness, dyspnea, abdominal pain Review of Systems Review of Systems: All systems reviewed & are unremarkable except as noted in HPI & below Physical Exam Physical Exam: Physical Exam: Vitals signs as noted above General Appearance:Moderately built and nourished, no apparent distress Head: normocephalic, Atraumatic , Right Parotid region swelling, tenderness improving Eyes: normal inspection, EOMI Neck: supple, Trachea midline Respiratory/Chest: Normal breath sounds, CTA Cardiovascular: S1, S2, No murmur Abdomen/GI:Soft, Non tender, Bowel sounds present Extremities/Musculoskeletal:normal inspection, no edema Neurologic/Psych:Alert, awake, grossly no focal neurological deficits Skin: normal color, warm Results & Data Results & Data ([facility]) Vital Signs (Past 12 Hours) Vital Signs Temp Pulse Resp BP Pulse Ox 11/08/20 08:36 36.6 C 75 16 114/65 97 Laboratory Results Short CBC 11/08/20 Range/Units 09:00 WBC 5.87 (4.8-10.8) K/uL Hgb 8.6 L (14.0-18.0) g/dL Hct 25.9 L (42-52) % Plt Count 228 (130-400) K/uL [facility] 11/08/20 09:00 Sodium 142 Potassium 3.1 L Chloride 110 H Carbon Dioxide 27 BUN 4 L Creatinine 0.58 L Glucose 70 Calcium 7.7 L
[2020-11-09] MEDS: NICOTINE POLACRILEX 2 MG GUM MT PRN ×2 (02:05→05:13)
[2020-11-09] MEDS: CLINDAMYCIN 600 MG in DEXTROSE 5% 50 ML IV SCH (05:13)
[2020-11-09 06:50] LABS: Hematocrit (blood only) 28.3 % (42-52); Hemoglobin 9.3 g/dL (14.0-18.0)
[2020-11-09 07:20] LABS: BUN Creatinine Ratio 8.5 (10-20); Calcium 7.6 mg/dl (8.5-10.1); Creatinine Clr Calc Pharmacy 159.3 ml/min; Est GFR (African American) 138.3 ml/min; Est GFR (Non-African American) 119.3 ml/min; Magnesium 1.8 mg/dl (1.8-2.4); Potassium 3.3 mmol/L (3.5-5.1)
[2020-11-09] MEDS: MAGNESIUM CHLORIDE 64MG DELAYED REL TAB PO SCH (08:50)
[2020-11-09] MEDS: HEPARIN SOD 5,000 UNIT/0.5 ML VIAL SQ SCH (08:51)
[2020-11-09] MEDS ORDERED: POTASSIUM CHLORIDE CRTAB 20 MEQ TABCR PO SCH (10:15)
[2020-11-09] MEDS ORDERED: LINEZOLID CONSULT ACTIVE PRN (11:49)
[2020-11-09] MEDS ORDERED: LINEZOLID 600 MG TAB PO SCH (12:00)
--- NOTE | 2020-11-09 13:20 | Hospitalist Progress Note ---
Date of Service November 09, 2020 Assessment & Plan (1) Facial mass: Right facial cyst/mass DD: Brachial cyst/parotid lesion/epidermal inclusion cyst/abscess -Neck CT:There is a 5.1 cm complex low-attenuation lesion either arising from or overlying the right parotid gland. There is no surrounding inflammatory change, and a primary parotid lesion is favored over abscess. Clinical correlation will be essential. Nonemergent fine-needle aspiration will likely be required for definitive characterization. Emphysema. Patchy groundglass opacities are present in the upper lobes bilaterally. Correlate clinically for evidence of a mild infectious/inflammatory pneumonitis. There are numerous dental caries and periapical lucencies, several of which show overlying cortical breakthrough. Nonemergent follow-up with dentistry is recommended. -Started on clindamycin initially>>> Will transition to PO Zyvox based and sensitivities and given penicillin allergy history. -Pain control -Warm compresses, Received IV fluids Appreciate ENT input Had FNAC of right facial lesion on 11/07/20 FNA aspirate growing Enterococcus faecalis Pathology Pending Plan to discharge on 10-day course of antibiotic. Needs follow-up with ENT upon discharge Electrolyte imbalances Hyponatremia Hypokalemia Hypomagnesemia Replace electrolytes as needed Monitor Chronic anemia Hemoglobin drop likely dilutional secondary to IV fluids Monitor CBC No obvious bleeding issues Depression Paranoid schizophrenia on Invega Sustenna monthly--received on 11/06/20 Tobacco use disorder evp general counsel to quit DVT Px: Heparin SQ Admission and Anticipated Discharge Date Admission Date: November 05, 2020 Subjective Patient is seen and examined at bedside No new complaints Right parotid pain resolved Still has swelling Denies dysphagia, odynophagia, chest pain, dizziness, dyspnea, abdominal pain Review of Systems Review of Systems: All systems reviewed & are unremarkable except as noted in HPI & below Physical Exam Physical Exam: Physical Exam: Vitals signs as noted above General Appearance:Moderately built and nourished, no apparent distress Head: normocephalic, Atraumatic , Right Parotid region swelling improving Eyes: normal inspection, EOMI Neck: supple, Trachea midline Respiratory/Chest: Normal breath sounds, CTA Cardiovascular: S1, S2, No murmur Abdomen/GI:Soft, Non tender, Bowel sounds present Extremities/Musculoskeletal:normal inspection, no edema Neurologic/Psych:Alert, awake, grossly no focal neurological deficits Skin: normal color, warm Results & Data Results & Data ([place]) Vital Signs (Past 12 Hours) Vital Signs Temp Pulse Resp BP Pulse Ox 11/09/20 06:20 36.6 C 72 19 120/75 98 Laboratory Results Short CBC 11/09/20 Range/Units 06:02 Hgb 9.3 L (14.0-18.0) g/dL Hct 28.3 L (42-52) % BMP 11/09/20 06:02 Sodium 141 Potassium 3.3 L Chloride 109 H Carbon Dioxide 29 BUN 6 L Creatinine 0.67 Glucose 106 H Calcium 7.6 L
--- NOTE | 2020-11-09 13:25 | Discharge Summary ---
Date of Service November 09, 2020 Admission HPI Per Admitting Provider 40-year-old male with a past medical history of hidradenitis suppurativa, paranoid schizophrenia, gluteal abscess and cellulitis, perirectal abscesses, depression, anemia, tobacco use disorder and buttock abscess presents the emergency room with a right facial fluctuant mass. He said it started on Tuesday and got progressively worse over the weekend, it was not painful until today when it started ache a little bit about a 2 out of 10. He denies any trauma to the area, denies any fevers, chills, nausea, vomiting. The ER doctor ran the case by ENT who will see the patient in consult. Admission Exam Per Admitting Provider Physical Exam Gen-AAO x 3, NAD, Afebrile Head-large fluctuant mass on the right side of the face anterior to the ear in the parotid area or slightly posterior to the parotid area, a pustular head is seen. No marked erythema in the area, EOMI, PERRLA, Anicteric Sclera, No Posterior Pharyngeal Erythema Neck-Supple, No JVD, No Thyromegaly, No Masses, No LAD, No Bruits Lungs-Clear to Auscultation Bilaterally, No Rales, No Rhonchi, No Wheezing, No Crepitus Chest-No S4, +S1, +S2, No S3, No Murmurs, No Rubs, No Gallops, No Ectopy Abdomen-Soft, Bowel Sounds Present, Non Tender, Non Distended, No Hepatomegaly, No Splenomegaly, No Palpable Masses, No Rebound, No Rigidity, No Guarding Musculoskeletal-Full Range of Motion Bilaterally, No CVAT Extremities-No Cyanosis, No Clubbing, No Edema Nuero-Cranial Nerves II-XII grossly intact, Motor WNL, DTRs WNL, Strength WNL, Non Focal Psych-Normal Mood Principal Diagnosis Right facial cyst/mass Hypokalemia Hypomagnesemia Discharge Data Allergies Allergy/AdvReac Type Severity Reaction Status Date / Time Penicillins Allergy Severe Rash Verified 11/05/20 15:40 Consultations 11/05/20 17:03 ED Decision to Admit Stat 11/05/20 20:50 Consult Otolaryngology (Head and Neck) Routine Procedures Performed Neck CT:There is a 5.1 cm complex low-attenuation lesion either arising from or overlying the right parotid gland. There is no surrounding inflammatory change, and a primary parotid lesion is favored over abscess. Clinical correlation will be essential. Nonemergent fine-needle aspiration will likely be required for definitive characterization. Emphysema. Patchy groundglass opacities are present in the upper lobes bilaterally. Correlate clinically for evidence of a mild infectious/inflammatory pneumonitis. There are numerous dental caries and periapical lucencies, several of which show overlying cortical breakthrough. Nonemergent follow-up with dentistry is recommended. Ordered Studies 11/05/20 15:46 CT soft tissue neck w con Stat Hospital Course (1) Facial mass: Right facial cyst/mass DD: Brachial cyst/parotid lesion/epidermal inclusion cyst/abscess -Neck CT:There is a 5.1 cm complex low-attenuation lesion either arising from or overlying the right parotid gland. There is no surrounding inflammatory change, and a primary parotid lesion is favored over abscess. Clinical correlation will be essential. Nonemergent fine-needle aspiration will likely be required for definitive characterization. Emphysema. Patchy groundglass opacities are present in the upper lobes bilaterally. Correlate clinically for evidence of a mild infectious/inflammatory pneumonitis. There are numerous dental caries and periapical lucencies, several of which show overlying cortical breakthrough. Nonemergent follow-up with dentistry is recommended. -Started on clindamycin initially>>> Will transition to PO Zyvox based and sensitivities and given penicillin allergy history. -Pain control -Warm compresses, Received IV fluids Appreciate ENT input Had FNAC of right facial lesion on 11/07/20 FNA aspirate growing Enterococcus faecalis Pathology Pending Plan to discharge on 10-day course of antibiotic. 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 DVT Px: Heparin SQ Total Time Total Time Spent Total Time Spent (In Minutes): 41 minutes Total Time Includes: Examination of the Patient, Discharge Planning, Medication Reconciliation, Communication With Other Providers and Other Discharge Plan Discharge Items Patient Disposition: Home - Self-Care Reason For Visit: R FACIAL ABSCESS/CELLULITIS Discharge Diagnosis: Right facial cyst/mass Hypokalemia Hypomagnesemia Activity: Per Instructions section Exercise/Sports: Gradually increase as tolerated Non-emergency contact: Primary Care Provider and Specialist Call non-emergency contact if: you have any medication questions, your symptoms worsen, your pain is not controlled, your pain is worsening, your pain is concerning for you and you have a fever Follow-up/Referrals: Kenneth Agrawal DO [Primary Care Provider] - Diet: Heart Healthy Addtl Attending Provider Instructions: Follow-up with your primary care physician Dr. 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 Your pathology report is pending at the time of discharge. Follow-up with your physician for results. Seek immediate medical attention if your symptoms reoccur or worsen Please take all medications as instructed on discharge list below. Please call if you have any questions or problems. You can reach a [facility] hospitalist on duty at [facility] 24 hours a day by calling [phone] Pending Studies at Discharge: Yes Studies:: [facility] Pathology Stand-Alone Forms: My [facility] [employer], Smoking Cessation Medications and DC Order Prescriptions: New potassium chloride [Klor-Con M20] 20 mEq Tablet,Er Particles/Crystals 20 meq PO DAILY Qty: 5 RF: 0 linezolid 600 mg Tablet 600 mg PO BID Qty: 20 RF: 0 magnesium chloride [Mag 64] 64 mg Tablet,Delayed Release (Dr/Ec) 64 mg PO BID Qty: 60 RF: 0 Continued Invega Sustenna 117 mg/0.75 mL syringe 0 mg IM MONTHLY RF: 0 Discharge Orders: Discharge Order (Routine); Ordered 11/09/20 Ordered By: Osmar Paiz/Other Patient Handouts: Iron Supplements, Discharge Instructions for Hypokalemia, Discharge Instructions for ..., ED Abscess, Antibiotic Treatment Only Admission Data Admit Date/Time: 11/05/20 18:24 Attending Provider: Osmar Elena Admit Provider: Sidney Hughes Primary Care Provider: Kenneth Agrawal Other Providers: Sidney Hughes ; Houston Flower Other Interventions: Discharge Summary Assessment (RN) Last Done: 11/09/20 13:40
== END 2020-11-09 14:33 | disposition home or self-care (01) | DRG 607 ==
LOC: ED 14:50 → SUATTDRO 18:24 → 3N 18:24

== ENCOUNTER 2021-05-17 17:20 | Inpatient (IN) ==
[2021-05-17] MEDS ORDERED: KETOROLAC 30 MG/ML VIAL IV ONE ×2 (18:43→22:33)
[2021-05-17 19:14] LABS: Basophils # (auto) 0.01 K/uL (0-0.2); Basophils % (auto) 0.1 %; Eosinophils # (auto) 0.41 K/uL (0-0.5); Hematocrit (blood only) 31.2 % (42-52); Hemoglobin 10.3 g/dL (14.0-18.0); Immature Granulocytes # (auto) 0.05 K/uL (0.00-0.02); Immature Granulocytes % (auto) 0.4 %; Lymphocytes # (auto) 3.28 K/uL (1.2-3.4); Lymphocytes % (auto) 23.8 %; Mean Corpuscular Hemoglobin 34.7 pg (25-34); Mean Corpuscular Volume 105.1 fL (80-100); Mean Platelet Volume 8.4 fL (7.4-10.4); Monocytes # (auto) 0.84 K/uL (0.11-0.59); Monocytes % (auto) 6.1 %; Neutrophils # (auto) 9.19 K/uL (1.4-6.5); Neutrophils % (auto) 66.6 %; Platelet Count 511 K/uL (130-400); RDW Coefficient of Variation 15.6 % (11.5-14.5); RDW Standard Deviation 59.9 fL (36.4-46.3); Red Blood Count 2.97 M/uL (4.7-6.1); White Blood Count 13.78 K/uL (4.8-10.8)
[2021-05-17 19:33] LABS: Albumin Level 3.3 gm/dl (3.4-5.0); BUN Creatinine Ratio 4.5 (10-20); Calcium 8.9 mg/dl (8.5-10.1); Creatinine Clr Calc Pharmacy 111.6 ml/min; Est GFR (African American) 127.7 ml/min; Est GFR (Non-African American) 110.2 ml/min; Potassium 3.3 mmol/L (3.5-5.1)
[2021-05-17 19:35] LABS: Albumin Globulin Ratio 0.7 (0.9-2); Bilirubin,Total 0.6 mg/dl (0.2-1); C Reactive Protein 3.24 mg/dl (0-0.29); Globulin 4.8 gm/dl (2.5-4.0); Total Protein 8.1 gm/dl (6.4-8.2)
--- NOTE | 2021-05-17 20:01 | Emergency Department Note ---
Impression & Plan Abscess of gluteal region ED Provider Note CHIEF COMPLAINT: Abscess HISTORY OF PRESENT ILLNESS: Gurpreet Schroeder is a 41 year old male with history of paranoid schizophrenia, depression, hidradenitis suppurativa with multiple recurrent abscesses about his face, buttocks and perirectal region who presents to the Emergency Department for evaluation of increased pain, swelling and discharge from an abscess on his left gluteal fold which has been worsening over the past several days. Currently, he rates his discomfort as an 8/10 which worsens when placing pressure over the area. He also states that he has had difficulty walking now due pain. The patient states that he has otherwise been feeling well and he denies recent fevers/chills, chest pain, shortness of breath, palpitations, abdominal pain, nausea, vomiting, diarrhea or urinary symptoms. He has been eating, drinking, moving his bowels and urinating regularly. Of note, the patient has been admitted to the hospital on several p revious occasions for abscesses and has underwent incision and drainage procedures. He has also been treated with multiple different antibiotics in the past. REVIEW OF SYSTEMS: 10 systems were reviewed and were negative unless otherwise stated in HPI as above PHYSICAL EXAM: VITALS: Vitals are noted on the nurse's note and reviewed by myself. Vital signs stable. General: Resting in bed, no acute distress HEENT: Normocephalic, PERRL, EOMI, mucous membranes moist, oropharynx clear Neck: No cervical lymphadenopathy, non-tender Resp: Good inspiratory effort on room air, lung sounds clear bilaterally CV: Regular rate and rhythm, peripheral pulses palpated Abd: Mildly distended but soft, non-tender to palpation Integumentary/Buttock: Thickened, sclerotic tissue to the bilateral buttocks and gluteal skin folds. Erythematous and edematous wound to the left distal gluteal fold/proximal thigh with skin breakdown that is seeping clear fluid, area is indurated and significantly tender to palpation, concerning for underlying abscess. Multiple punctate open areas about the rectum. MSK: Moving all extremities without apparent pain or difficulty Neuro: Awake, alert, interacting and answering questions appropriately Differential diagnosis includes cellulitis, abscess, fistula, MRSA infection, necrotizing fasciitis, dermatitis, as well as others were entertained. EMERGENCY DEPARTMENT COURSE: Physical exam and history were performed. Nursing triage notes, EMR, and medication list were personally reviewed. Patient with history of paranoid schizophrenia, depression, hidradenitis sup purativa with multiple recurrent abscesses about hit buttocks and perirectal region presents for evaluation of increased pain, swelling and discharge from an abscess on his left gluteal fold which has been worsening over the past several days. On exam, he did have thickened, sclerotic tissue to the bilateral buttocks and gluteal skin folds. Erythematous and edematous wound to the left distal gluteal fold/proximal thigh with skin breakdown that is seeping clear fluid, area is indurated and significantly tender to palpation, concerning for underlying abscess. The patient was offered pain medication. IV access was established and he was given Toradol 30 mg. Labs were obtained and reviewed by myself as below. Of note, he did have a leukocytosis with WBC of 13.78. Mild anemia with hemoglobin 10.3. Thrombocytosis with platelets 511. Mild hypokalemia at 3.3, Na and Cl WNL. Creatinine WNL at 0.8, BUN low at 4.5. Normal glucose 82. LFTs nondiagnostic. CRP was elevated at 3.24 and ESR elevated at 63 consistent with infectious process. Lactate not elevated at 0.9. Blood cultures were obtained, pending. CT pelvis was obtained and reviewed by radiologist and myself as below. This did show abnormal skin thickening along the median buttocks crease, left greater than right extending along the posterior left thigh with a thick-walled enhancing fluid collection consistent with abscess. This did measure 4.8 x 4.5 x 3.4 cm. Upon reevaluation, the patient was doing well. I discussed the results of the above findings with him at bedside. He did agree for deep wound culture at [facility]. After thoroughly cleansing the surface, a 15 mm blade was used to create a small puncture over the wound with expression of purulent fluid which was then swabbed and sent to lab for culture. He tolerated this well without complication. He was given an additional dose of Toradol 30 mg for pain. Given the above findings, I do feel that the patient would benefit from continued management in the hospital for wound care and antibiotic therapy. The patient did agree with this. I contacted Dr. Donohue of [facility] and he agreed to evaluate the patient. The patient verbalized understanding and agreement with the treatment plan as above. The chart was completed utilizing Dragon Speech Voice Recognition Software. Grammatical errors, random word insertions, pronoun errors, and incomplete sentences are an occasional consequence of this system due to software limitations, ambient noise, and hardware issues. Any formal questions or concerns about the content, text, or information contained within the body of this dictation should be directly addressed to the provider for clarification. Past Med/Surg History Medical History Acute hypokalemia Anemia Cyst of face Depression Facial abscess Hidradenitis suppurativa Hypomagnesemia Hyponatremia Leukocytosis Paranoid schizophrenia Paranoid schizophrenia Perianal abscess Perirectal abscess Tobacco use disorder Surgical History History of incision and drainage Family History Other Cancer Denies family history of Schizophrenia Social History Smoking Status: Current every day smoker Tobacco Type: Cigarettes packs per day: 0.5; Cigarettes Per Day: 10; Second Hand Exposure: Yes; Hx Alcohol Use: No Hx Substance Use: No Preferred Language: Mozamb[place] Communication Ability: Effective Buttonhole Tacker Required: No Beliefs That Will Affect Care: None marital status: Single Current Living Situation: Alone Current Living Situation Comment: pt reports currently living with his parents current occupational status: disabled Feels Safe at Home: Yes during the past year weight has: remained stable Assistive Devices: None Allergies Allergies Allergy/AdvReac Type Severity Reaction Status Date / Time Penicillins Allergy Severe Rash Verified 05/17/21 18:51 Home Meds Home Medications Medication Instructions Recorded Confirmed paliperidone palmitate 117 mg/0.75 0 mg IM MONTHLY 10/23/19 05/17/21 mL intramuscular syringe (Invega Sustenna) Results & Data (ED) Vital Signs Vital Signs - 24 hr 05/17/21 17:21 05/17/21 20:00 05/17/21 22:00 Temperature 36.3 C L Temperature Source Temporal Artery Scan Pulse Rate 137 H Pulse Rate [Finger] 87 75 Pulse Rhythm [Finger] Regular Pulse Strength [Finger] Normal Respiratory Rate 19 16 16 Respiratory Effort / Characteristics Non-Labored Spontaneous Non-Labored Non-Labored Spontaneous Respiratory Depth Normal Normal Normal Respiratory Pattern Regular Blood Pressure 126/79 Blood Pressure [Right Arm] 107/81 115/76 Blood Pressure Mean 94 Blood Pressure Mean [Right Arm] 89 89 Blood Pressure Position [Right Arm] Semi-fowlers Left Lateral Pulse Oximetry 95 100 99 Oxygen Delivery Method Room Air Room Air Room Air Sepsis Recent Fever Within 48 Hours No Sepsis New/Unexplained Change in Mental Status N/A Sepsis Action Taken by Nursing No Action Required Laboratory Data Result diagrams: 05/17/21 19:00 05/17/21 19:00 Lab Results 05/17/21 05/17/21 05/17/21 Range/Units 19:00 19:00 19:00 WBC 13.78 H (4.8-10.8) K/uL RBC 2.97 L (4.7-6.1) M/uL Hgb 10.3 L (14.0-18.0) g/dL Hct 31.2 L (42-52) % MCV 105.1 H (80-100) fL MCH 34.7 H (25-34) pg MCHC 33.0 (32-36) g/dL RDW Std Deviation 59.9 H (36.4-46.3) fL RDW Coeff of Fausto 15.6 H (11.5-14.5) % Plt Count 511 H (130-400) K/uL MPV 8.4 (7.4-10.4) fL Immature Gran % (Auto) 0.4 % Neut % (Auto) 66.6 % Lymph % (Auto) 23.8 % [place] % (Auto) 6.1 % Eos % (Auto) 3.0 % Baso % (Auto) 0.1 % Neut # (Auto) 9.19 H (1.4-6.5) K/uL Lymph # (Auto) 3.28 (1.2-3.4) K/uL [place] # (Auto) 0.84 H (0.11-0.59) K/uL Eos # (Auto) 0.41 (0-0.5) K/uL Baso # (Auto) 0.01 (0-0.2) K/uL Immature Gran # (Auto) 0.05 H (0.00-0.02) K/uL ESR 63 H (0-15) mm/hr Sodium 136 (136-145) mmol/L Potassium 3.3 L (3.5-5.1) mmol/L Chloride 102 (98-107) mmol/L Carbon Dioxide 28 (21-32) mmol/L Anion Gap 6.0 (3-11) BUN 4 L (7-18) mg/dl Creatinine 0.80 (0.6-1.4) mg/dl Est Cr Clr Drug Dosing 111.6 ml/min Est GFR ( Amer) 127.7 ml/min Est GFR (Non-Af Amer) 110.2 ml/min BUN/Creatinine Ratio 4.5 L (10-20) Glucose 82 (70-99) mg/dl Lactate (0.4-2.0) mmol/L Calcium 8.9 (8.5-10.1) mg/dl Total Bilirubin 0.6 (0.2-1) mg/dl AST 7 L (15-37) U/L ALT 10 L (12-78) Alkaline Phosphatase 90 (45-117) U/L C-Reactive Protein 3.24 H (0-0.29) mg/dl Total Protein 8.1 (6.4-8.2) gm/dl Albumin 3.3 L (3.4-5.0) gm/dl Globulin 4.8 H (2.5-4.0) gm/dl Albumin/Globulin Ratio 0.7 L (0.9-2) SARS-CoV-2, RNA, NAAT (NEGATIVE) 05/17/21 05/17/21 Range/Units 19:00 19:11 WBC (4.8-10.8) K/uL RBC (4.7-6.1) M/uL Hgb (14.0-18.0) g/dL Hct (42-52) % MCV (80-100) fL MCH (25-34) pg MCHC (32-36) g/dL RDW Std Deviation (36.4-46.3) fL RDW Coeff of Fausto (11.5-14.5) % Plt Count (130-400) K/uL MPV (7.4-10.4) fL Immature Gran % (Auto) % Neut % (Auto) % Lymph % (Auto) % [place] % (Auto) % Eos % (Auto) % Baso % (Auto) % Neut # (Auto) (1.4-6.5) K/uL Lymph # (Auto) (1.2-3.4) K/uL [place] # (Auto) (0.11-0.59) K/uL Eos # (Auto) (0-0.5) K/uL Baso # (Auto) (0-0.2) K/uL Immature Gran # (Auto) (0.00-0.02) K/uL ESR (0-15) mm/hr Sodium (136-145) mmol/L Potassium (3.5-5.1) mmol/L Chloride (98-107) mmol/L Carbon Dioxide (21-32) mmol/L Anion Gap (3-11) BUN (7-18) mg/dl Creatinine (0.6-1.4) mg/dl Est Cr Clr Drug Dosing ml/min Est GFR ( Amer) ml/min Est GFR (Non-Af Amer) ml/min BUN/Creatinine Ratio (10-20) Glucose (70-99) mg/dl Lactate 0.9 (0.4-2.0) mmol/L Calcium (8.5-10.1) mg/dl Total Bilirubin (0.2-1) mg/dl AST (15-37) U/L ALT (12-78) Alkaline Phosphatase (45-117) U/L C-Reactive Protein (0-0.29) mg/dl Total Protein (6.4-8.2) gm/dl Albumin (3.4-5.0) gm/dl Globulin (2.5-4.0) gm/dl Albumin/Globulin Ratio (0.9-2) SARS-CoV-2, RNA, NAAT NEGATIVE (NEGATIVE) Administered Medications Discontinued Medications Ioversol (Optiray 320 100ml) 94 ml IV ONCE ONE Stop: 05/17/21 20:53 Last Admin: 05/17/21 20:52 Dose: 94 ml Documented by: [id number] Ketorolac Tromethamine (Ketorolac 30 Mg/Ml Vial) 30 mg IV NOW ONE Stop: 05/17/21 18:44 Last Admin: 05/17/21 19:06 Dose: 30 mg Documented by: [id number] Imaging Data Radiologist's Impression: Pelvis CT 05/17/21 18:43 CT pelvis w/IV con only CLINICAL HISTORY: Posterior buttocks pain. Evaluate for perirectal and buttock abscesses COMPARISON: 01/14/2020 CT DOSE: 771.84 mGy.cm TECHNIQUE: Standard CT of the Pelvis with intravenous contrast was performed. This CT exam was performed using one or more of the following dose reduction techniques: Automated exposure control, adjustment of the mA and/or kV according to patient size, or use of iterative reconstruction technique. CONTRAST: Optiray 320, 94 mL of nonionic intravenous contrast. The patient received oral contrast. FINDINGS: Soft tissues: There is abnormal skin thickening seen beginning superiorly along the medial crease of the buttocks on the left. It continues to extend inferiorly along the posterior aspect of the buttocks and upper thigh. Its lower extent, there is an enhancing fluid collection with thick-walled enhancement. This represents present for an abscess. It measures approximately 4.8 x 4.5 x 3.4 cm. Additional skin thickening of the median buttocks crease is present bilaterally with cellulitis also present on the right. No focal fluid collection is identified on the right. Osseous structures:There is no evidence for an acute fracture or dislocation. Bowel: The bowel gas pattern is within normal limits without evidence for dilatation or obstruction.. Bladder: The bladder is partially contracted with diffuse thickening of the bladder wall. : There is no evidence for pelvic mass or adenopathy. IMPRESSION: Abnormal skin thickening along the median buttocks crease, left greater than right extending along the posterior left thigh with a thick-walled enhancing fluid collection representing an abscess. ACT 112: Negative or not required by law. Electronically signed by: Norbert Humphries M.D. 05/17/2021 9:25 PM Discharge Plan Visit Data Chief Complaint: Rectal Pain Stated Complaint: RECTAL ABCESS ED Provider: Nedra Charles ED Midlevel Provider: Emani Maier Discharge Problem: Abscess of gluteal region Patient Disposition: Being Evaluated by Hospitalist Forms Stand Alone Forms: My dINK Prescriptions Prescriptions: No Action Invega Sustenna 117 mg/0.75 mL syringe 0 mg IM MONTHLY RF: 0 Referrals Referrals: Kenneth Agrawal DO [Primary Care Provider] -
[2021-05-17] MEDS ORDERED: OPTIRAY 320 100ml IV ONE (20:52)
--- NOTE | 2021-05-17 21:26 | CT Scan Report ---
CT pelvis w/IV con only CLINICAL HISTORY: Posterior buttocks pain. Evaluate for perirectal and buttock abscesses COMPARISON: 01/14/2020 CT DOSE: 771.84 mGy.cm TECHNIQUE: Standard CT of the Pelvis with intravenous contrast was performed. This CT exam was performed using one or more of the following dose reduction techniques: Automated ex posure control, adjustment of the mA and/or kV according to patient size, or use of iterative reconst ruction technique. CONTRAST: Optiray 320, 94 mL of nonionic intravenous contrast. The patient received oral contrast. FINDINGS: Soft tissues: There is abnormal skin thickening seen beginning superiorly along the medial crease of the buttocks on the left. It continues to extend inferiorly along the posterior aspect of the buttock s and upper thigh. Its lower extent, there is an enhancing fluid collection with thick-walled enhance ment. This represents present for an abscess. It measures approximately 4.8 x 4.5 x 3.4 cm. Additional skin thickening of the median buttocks crease is present bilaterally with cellulitis also present on the right. No focal fluid collection is identified on the right. Osseous structures:There is no evidence for an acute fracture or dislocation. Bowel: The bowel gas pattern is within normal limits without evidence for dilatation or obstruction. . Bladder: The bladder is partially contracted with diffuse thickening of the bladder wall. : There is no evidence for pelvic mass or adenopathy. IMPRESSION: Abnormal skin thickening along the median buttocks crease, left greater than right extend ing along the posterior left thigh with a thick-walled enhancing fluid collection representing an abs cess. ACT 112: Negative or not required by law. Electronically signed by: Norbert Humphries M.D. 05/17/2021 9:25 PM
[2021-05-17] MEDS ORDERED: CONSULT PHARMACY STA (23:33)
[2021-05-18] MEDS ORDERED: POTASSIUM CHLORIDE CRTAB 20 MEQ TABCR PO STA (00:42)
--- NOTE | 2021-05-18 01:29 | History and Physical Report ---
DATE OF ADMISSION: 05/17/2021. CHIEF COMPLAINT: Gluteal abscess. HISTORY OF PRESENT ILLNESS: A 41-year-old male with past medical history significant for hidradenitis suppurativa, paranoid schizophrenia, history of gluteal abscess , history of perirectal abscess, history of right facial abscess, depression, anemia, tobacco use disorder presents with left gluteal abscess starting a couple of days ago and lot of pain and draining. Denies any fever, denies any other complaints. Currently, resting comfortably and hemodynamically stable. No headache, no dizziness, no blurred visions, no earache, no runny nose, no sore throat, no cough. Appetite is okay. No difficulty swallowing. No chest pain or shortness of breath, no nausea, no vomiting, no abdominal pain. Normal bowel and bladder movements. No swelling in the legs. Ambulates okay. Lives with his parents. ALLERGIES: PENICILLINS. PAST MEDICAL HISTORY: As mentioned above. PAST SURGICAL HISTORY: Drainage of rectal abscess. MEDICATIONS: The patient is on Invega Sustenna IM monthly. FAMILY HISTORY: Significant for mother had breast cancer, father has high cholesterol. SOCIAL HISTORY: Lives with his parents. Smokes half pack a day. Alcohol, rarely. No drug use. REVIEW OF SYSTEMS: As per HPI. Rest of review of systems is negative. PHYSICAL EXAMINATION: GENERAL: The patient is of moderate build, not in acute distress. VITAL SIGNS: Temperature 36.3, pulse 75, respiratory rate 16, blood pressure 115/76, oxygen 99% on room air. HEENT: Pupils equal, round, and reactive to light. Oral mucosa moist. NECK: No JVD, no neck masses. CARDIOVASCULAR: S1 and S2 heard. Regular rate and rhythm. No murmur, no gallop. RESPIRATORY SYSTEM: Normal AP diameter. No accessory muscle use. No wheezing, no crackles. ABDOMEN: Soft, bowel sounds are present, nontender, no distention. CENTRAL NERVOUS SYSTEM: Cranial nerves II-XII grossly intact, nonfocal. EXTREMITIES: No edema, no erythema. SKIN: Left gluteal areas erythematous changes and swelling and some drainage seen. LABORATORY DATA: WBC 13.7, hemoglobin 10.3, hematocrit 31.2, platelets 511. ESR 63. Sodium 136, potassium 3.3, chloride 102, bicarbonate 28, BUN ____, creatinine 0.8, serum glucose 182, lactate 0.9, calcium 8.9, total bilirubin 0.6, AST 7, ALT 10, alkaline phosphatase 92. C-reactive protein 3.2. SARS-CoV-2 RNA negative. IMAGING DATA: Pelvic CT, abnormal skin thickening along the medial buttocks crease, left greater than right, extending along the posterior thigh with a thick walled enhancing fluid collection representing an abscess. ASSESSMENT AND PLAN: This is a 41-year-old male with history of paranoid schizophrenia, hidradenitis suppurativa, history of multiple abscesses, ongoing tobacco abuse, history of anemia, who presents with gluteal abscess. 1. Gluteal abscess: On the left side. Empirically started on Invanz and vancomycin. Gentle fluids. We will keep him n.p.o. after midnight and consult surgery in the a.m. Pain control. 2. History of paranoid schizophrenia: Continue home medication. 3. Anemia. Stool for Hemoccult. iron and vitamin b12 levels. Needs followup. 4. Deep venous thrombosis prophylaxis: Sequential compression devices for now. DISPOSITION: Admit to medical floor. Expect to discharge home and follow with family doctor. Job ID: [id number] [facility]
[2021-05-18] MEDS ORDERED: ACETAMINOPHEN 325 MG TAB PO PRN (02:24)
[2021-05-18] MEDS ORDERED: VANCOMYCIN CONSULT ACTIVE PRN (02:24)
[2021-05-18] MEDS ORDERED: ONDANSETRON INJ 2 MG/ML 2 ML VIAL IV PRN (02:24)
[2021-05-18] MEDS ORDERED: POLYETHYLENE (MIRALAX) 17 GM PACK PO PRN (02:24)
[2021-05-18] MEDS ORDERED: ERTAPENEM CONSULT ACTIVE PRN (02:47)
[2021-05-18] MEDS ORDERED: ERTAPENEM SODIUM 1,000 MG in SODIUM CHLORIDE 0.9% 50 ML IV SCH (03:00)
[2021-05-18] MEDS ORDERED: VANCOMYCIN HCL 1,500 MG in SODIUM CHLORIDE 0.9% 500 ML IV ONE (03:00)
[2021-05-18] MEDS: SODIUM CHLORIDE 0.9% 1000ML 1,000 ML IV SCH ×4 (03:16→20:01)
[2021-05-18] MEDS: HYDROmorphone INJ 0.5 MG/0.5 ML SYR IV PRN ×2 (03:23→09:45)
[2021-05-18 05:18] LABS: Basophils # (auto) 0.01 K/uL (0-0.2); Basophils % (auto) 0.1 %; Eosinophils # (auto) 0.46 K/uL (0-0.5); Eosinophils % (auto) 4.5 %; Hematocrit (blood only) 29.8 % (42-52); Hemoglobin 9.7 g/dL (14.0-18.0); Immature Granulocytes # (auto) 0.02 K/uL (0.00-0.02); Immature Granulocytes % (auto) 0.2 %; Lymphocytes # (auto) 2.88 K/uL (1.2-3.4); Lymphocytes % (auto) 28.1 %; Mean Corpuscular Hemoglobin 34.9 pg (25-34); Mean Corpuscular Hgb Conc 32.6 g/dL (32-36); Mean Corpuscular Volume 107.2 fL (80-100); Mean Platelet Volume 8.5 fL (7.4-10.4); Monocytes # (auto) 0.66 K/uL (0.11-0.59); Monocytes % (auto) 6.4 %; Neutrophils # (auto) 6.23 K/uL (1.4-6.5); Neutrophils % (auto) 60.7 %; Platelet Count 523 K/uL (130-400); RDW Coefficient of Variation 15.6 % (11.5-14.5); Red Blood Count 2.78 M/uL (4.7-6.1); White Blood Count 10.26 K/uL (4.8-10.8)
[2021-05-18 05:53] LABS: BUN Creatinine Ratio 9.5 (10-20); Calcium 8.8 mg/dl (8.5-10.1); Creatinine Clr Calc Pharmacy 119.1 ml/min; Est GFR (African American) 131.1 ml/min; Est GFR (Non-African American) 113.1 ml/min; Magnesium 2.1 mg/dl (1.8-2.4); Potassium 3.7 mmol/L (3.5-5.1)
--- NOTE | 2021-05-18 10:19 | Surgery Consultation ---
Date of Consultation May 18, 2021 Assessment & Plan (1) Abscess of gluteal region: Abscess of left inferior buttock Plan: Given the fluctuance on examination, patient needs I&D of abscess . Dr. Hernandez discussed I&D at bedside as the area of abscess is easily identifiable on examination. Patient was informed of procedure and risks and informed consent obtained. I&D was performed at bedside Wound was packed with 1/4" gauze Outer dressing changes as needed Packing to be changed daily Culture obtained and sent Broad spectrum antibiotics okay to advance diet Avoid narcotics given low bp Dr. Hernandez has seen and examined pt, dictated separate I&D procedure. History of Present Illness Reason for Consultation: Left gluteal abscess Requesting Physician: Dr. Donohue Attending Physician: Iker Jones MD History of Present Illness Gurpreet is a 41 year-old male with history of multiple gluteal, perirectal, and facial abscess who presented to emergency room with increasing pain in the left buttock and drainage that started Tuesday. Given the chronicity of his issues he states he always had drainage from the area. Denies of any fever or chills. Bowel movements have been regular. Allergies Allergy/AdvReac Type Severity Reaction Status Date / Time Penicillins Allergy Severe Rash Verified 05/17/21 18:51 Home Medications Medication Instructions Recorded Confirmed Type paliperidone palmitate 117 mg/0.75 0 mg IM MONTHLY 10/23/19 05/17/21 History mL intramuscular syringe (Invega Sustenna) Patient History Medical History Acute hypokalemia Anemia Cyst of face Depression Facial abscess Hidradenitis suppurativa Hypomagnesemia Hyponatremia Leukocytosis Paranoid schizophrenia Paranoid schizophrenia Perianal abscess Perirectal abscess Tobacco use disorder Surgical History History of incision and drainage Family History Other Cancer Denies family history of Schizophrenia Social History Smoking Status: Current every day smoker Tobacco Type: Cigarettes packs per day: 0.5; Cigarettes Per Day: 10; Second Hand Exposure: Yes; Hx Alcohol Use: No Hx Substance Use: No Preferred Language: Faroese Communication Ability: Effective House Wirer Helper Required: No Beliefs That Will Affect Care: None marital status: Single Current Living Situation: Alone Current Living Situation Comment: pt reports currently living with his parents current occupational status: disabled Feels Safe at Home: Yes during the past year weight has: remained stable Assistive Devices: None Physical Exam Constitutional: WD/WN, vitals as above no acute distress and not ill appearing Respiratory: normal respiratory effort; no respiratory distress and no labored breathing Gastrointestinal (Abdomen): Left inferior buttock with fluctuance present. Very tender to palpation. There is multiple scars from prior incision and drainage procedure and thick skin of the right and left buttocks. Skin: no rashes, warm and dry Psychiatric: Orientation: alert and oriented x 3 Results & Data ([facility]) Vital Signs (Past 12 Hours) Vital Signs Temp Pulse Resp BP Pulse Ox 05/18/21 09:47 90 20 85/50 L 100 05/18/21 08:34 36.5 C 68 16 90/60 L 100 05/18/21 06:00 67 16 95/63 L 96 05/18/21 03:25 36.6 C 67 16 111/67 96 05/18/21 02:39 58 L 16 89/57 L 97 05/18/21 00:00 60 16 97/53 L 94 Laboratory Results 05/18/21 05/18/21 05/17/21 Range/Units 04:25 04:25 19:11 WBC 10.26 (4.8-10.8) K/uL RBC 2.78 L (4.7-6.1) M/uL Hgb 9.7 L (14.0-18.0) g/dL Hct 29.8 L (42-52) % MCV 107.2 H (80-100) fL MCH 34.9 H (25-34) pg MCHC 32.6 (32-36) g/dL RDW Std Deviation 62.0 H (36.4-46.3) fL RDW Coeff of Fausto 15.6 H (11.5-14.5) % Plt Count 523 H (130-400) K/uL MPV 8.5 (7.4-10.4) fL Immature Gran % (Auto) 0.2 % Neut % (Auto) 60.7 % Lymph % (Auto) 28.1 % [place] % (Auto) 6.4 % Eos % (Auto) 4.5 % Baso % (Auto) 0.1 % Neut # (Auto) 6.23 (1.4-6.5) K/uL Lymph # (Auto) 2.88 (1.2-3.4) K/uL [place] # (Auto) 0.66 H (0.11-0.59) K/uL Eos # (Auto) 0.46 (0-0.5) K/uL Baso # (Auto) 0.01 (0-0.2) K/uL Immature Gran # (Auto) 0.02 (0.00-0.02) K/uL ESR (0-15) mm/hr Sodium 136 (136-145) mmol/L Potassium 3.7 (3.5-5.1) mmol/L Chloride 103 (98-107) mmol/L Carbon Dioxide 26 (21-32) mmol/L Anion Gap 7.0 (3-11) BUN 7 (7-18) mg/dl Creatinine 0.75 (0.6-1.4) mg/dl Est Cr Clr Drug Dosing 119.1 ml/min Est GFR ( Amer) 131.1 ml/min Est GFR (Non-Af Amer) 113.1 ml/min BUN/Creatinine Ratio 9.5 L (10-20) Glucose 79 (70-99) mg/dl Lactate (0.4-2.0) mmol/L Calcium 8.8 (8.5-10.1) mg/dl Magnesium 2.1 (1.8-2.4) mg/dl Total Bilirubin (0.2-1) mg/dl AST (15-37) U/L ALT (12-78) Alkaline Phosphatase (45-117) U/L C-Reactive Protein (0-0.29) mg/dl Total Protein (6.4-8.2) gm/dl Albumin (3.4-5.0) gm/dl Globulin (2.5-4.0) gm/dl Albumin/Globulin Ratio (0.9-2) SARS-CoV-2, RNA, NAAT NEGATIVE (NEGATIVE) 05/17/21 05/17/21 05/17/21 Range/Units 19:00 19:00 19:00 WBC (4.8-10.8) K/uL RBC (4.7-6.1) M/uL Hgb (14.0-18.0) g/dL Hct (42-52) % MCV (80-100) fL MCH (25-34) pg MCHC (32-36) g/dL RDW Std Deviation (36.4-46.3) fL RDW Coeff of Fausto (11.5-14.5) % Plt Count (130-400) K/uL MPV (7.4-10.4) fL Immature Gran % (Auto) % Neut % (Auto) % Lymph % (Auto) % [place] % (Auto) % Eos % (Auto) % Baso % (Auto) % Neut # (Auto) (1.4-6.5) K/uL Lymph # (Auto) (1.2-3.4) K/uL [place] # (Auto) (0.11-0.59) K/uL Eos # (Auto) (0-0.5) K/uL Baso # (Auto) (0-0.2) K/uL Immature Gran # (Auto) (0.00-0.02) K/uL ESR 63 H (0-15) mm/hr Sodium 136 (136-145) mmol/L Potassium 3.3 L (3.5-5.1) mmol/L Chloride 102 (98-107) mmol/L Carbon Dioxide 28 (21-32) mmol/L Anion Gap 6.0 (3-11) BUN 4 L (7-18) mg/dl Creatinine 0.80 (0.6-1.4) mg/dl Est Cr Clr Drug Dosing 111.6 ml/min Est GFR ( Amer) 127.7 ml/min Est GFR (Non-Af Amer) 110.2 ml/min BUN/Creatinine Ratio 4.5 L (10-20) Glucose 82 (70-99) mg/dl Lactate 0.9 (0.4-2.0) mmol/L Calcium 8.9 (8.5-10.1) mg/dl Magnesium (1.8-2.4) mg/dl Total Bilirubin 0.6 (0.2-1) mg/dl AST 7 L (15-37) U/L ALT 10 L (12-78) Alkaline Phosphatase 90 (45-117) U/L C-Reactive Protein 3.24 H (0-0.29) mg/dl Total Protein 8.1 (6.4-8.2) gm/dl Albumin 3.3 L (3.4-5.0) gm/dl Globulin 4.8 H (2.5-4.0) gm/dl Albumin/Globulin Ratio 0.7 L (0.9-2) SARS-CoV-2, RNA, NAAT (NEGATIVE) 05/17/21 Range/Units 19:00 WBC 13.78 H (4.8-10.8) K/uL RBC 2.97 L (4.7-6.1) M/uL Hgb 10.3 L (14.0-18.0) g/dL Hct 31.2 L (42-52) % MCV 105.1 H (80-100) fL MCH 34.7 H (25-34) pg MCHC 33.0 (32-36) g/dL RDW Std Deviation 59.9 H (36.4-46.3) fL RDW Coeff of Fausto 15.6 H (11.5-14.5) % Plt Count 511 H (130-400) K/uL MPV 8.4 (7.4-10.4) fL Immature Gran % (Auto) 0.4 % Neut % (Auto) 66.6 % Lymph % (Auto) 23.8 % [place] % (Auto) 6.1 % Eos % (Auto) 3.0 % Baso % (Auto) 0.1 % Neut # (Auto) 9.19 H (1.4-6.5) K/uL Lymph # (Auto) 3.28 (1.2-3.4) K/uL [place] # (Auto) 0.84 H (0.11-0.59) K/uL Eos # (Auto) 0.41 (0-0.5) K/uL Baso # (Auto) 0.01 (0-0.2) K/uL Immature Gran # (Auto) 0.05 H (0.00-0.02) K/uL ESR (0-15) mm/hr Sodium (136-145) mmol/L Potassium (3.5-5.1) mmol/L Chloride (98-107) mmol/L Carbon Dioxide (21-32) mmol/L Anion Gap (3-11) BUN (7-18) mg/dl Creatinine (0.6-1.4) mg/dl Est Cr Clr Drug Dosing ml/min Est GFR ( Amer) ml/min Est GFR (Non-Af Amer) ml/min BUN/Creatinine Ratio (10-20) Glucose (70-99) mg/dl Lactate (0.4-2.0) mmol/L Calcium (8.5-10.1) mg/dl Magnesium (1.8-2.4) mg/dl Total Bilirubin (0.2-1) mg/dl AST (15-37) U/L ALT (12-78) Alkaline Phosphatase (45-117) U/L C-Reactive Protein (0-0.29) mg/dl Total Protein (6.4-8.2) gm/dl Albumin (3.4-5.0) gm/dl Globulin (2.5-4.0) gm/dl Albumin/Globulin Ratio (0.9-2) SARS-CoV-2, RNA, NAAT (NEGATIVE) Diagnostic Findings CT pelvis w/IV con only CLINICAL HISTORY: Posterior buttocks pain. Evaluate for perirectal and buttock abscesses COMPARISON: 01/14/2020 CT DOSE: 771.84 mGy.cm TECHNIQUE: Standard CT of the Pelvis with intravenous contrast was performed. This CT exam was performed using one or more of the following dose reduction techniques: Automated exposure control, adjustment of the mA and/or kV according to patient size, or use of iterative reconstruction technique. CONTRAST: Optiray 320, 94 mL of nonionic intravenous contrast. The patient rece ived oral contrast. FINDINGS: Soft tissues: There is abnormal skin thickening seen beginning superiorly along the medial crease of the buttocks on the left. It continues to extend inferiorly along the posterior aspect of the buttocks and upper thigh. Its lower extent, there is an enhancing fluid collection with thick-walled enhancement. This represents present for an abscess. It measures approximately 4.8 x 4.5 x 3.4 cm. Additional skin thickening of the median buttocks crease is present bilaterally with cellulitis also present on the right. No focal fluid collection is identified on the right. Osseous structures:There is no evidence for an acute fracture or dislocation. Bowel: The bowel gas pattern is within normal limits without evidence for dilatation or obstruction.. Bladder: The bladder is partially contracted with diffuse thickening of the bladder wall. : There is no evidence for pelvic mass or adenopathy. IMPRESSION: Abnormal skin thickening along the median buttocks crease, left greater than right extending along the posterior left thigh with a thick-walled enhancing fluid collection representing an abscess.
[2021-05-18] MEDS ORDERED: SODIUM CHLORIDE 0.9% 1000ML 1,000 ML IV ONE (10:53)
[2021-05-18] MEDS ORDERED: ACETAMINOPHEN 1,000 MG/100 ML VIAL IV PRN (12:45)
[2021-05-18] MEDS ORDERED: LIDOCAINE/EPINEPHRINE 1% 20 ML VIAL ONE (12:53)
--- NOTE | 2021-05-18 13:09 | Pharmacy Report ---
Pharmacy Vanc AUC Short Note - Date of Service May 18, 2021 - Assessment & Plan Assessment 41 year old M receiving vancomycin/ertapenem for treatment of gluteal abscess. No history of MRSA apparent. Patient does have a penicillin allergy. Day # 1 of antimicrobial therapy. Plan Vancomycin * AUC/ALBER is the preferred PK/PD target for vancomycin * AUC guided dosing is effective and associated with decreased risk of nephrotoxicity compared to traditional trough targets * Predicted Trough level of 16.3 mcg/mL is predicted to achieve target AUC/ALBER of 400-600 mg/L.hr and may be associated with a 12 % risk of nephrotoxicity * Initiate dose of 750 mg IV every 8 hours (loading dose of 1500mg X 1 was administered this morning) * Trough or random level ordered for: 05/19/21 @ 0750 Pharmacy will continue to follow and will adjust dose/frequency as necessary. Thank you.
[2021-05-18] MEDS: VANCOMYCIN HCL 750 MG in SODIUM CHLORIDE 0.9% 250 ML IV SCH ×2 (14:13→21:43)
--- NOTE | 2021-05-18 14:13 | Operative Report ---
Post Operative Report Pre & Post Diagnosis Left gluteal abscess I identified the patient and participated in the time-out.: Yes Procedure Incision and drainage of left gluteal abscess at the bedside in the emergency department Surgeon Abraham Hernandez MD [employer] Operator NEREIDA Rosales assisted with tissue retraction Estimated Blood Loss 2 Findings Consistent with Post-Op Diagnosis Moderate to large amount of purulent fluid; cultures sent Specimens Culture of wound Anesthesia Type Local Complications None Indications Left gluteal abscess Description of Procedure The patient was prepped with Betadine and was draped in sterile fashion on the ER stretcher. 1% lidocaine with epinephrine was injected into and around the area of main fluctuance. A cruciate incision was made with an 11 blade scalpel and immediately yielded a large amount of purulent fluid. Cultures were taken. The purulent fluid was drained. The wound was copiously irrigated. Quarter inch packing was placed into the wound. A dressing was applied. He tolerated the procedure without complication. I attest to the content of the Intraoperative Record and any orders documented therein. Any exceptions are noted below.
[2021-05-18] MEDS: KETOROLAC TROMETHAMINE 15 MG/ML VIAL IV PRN (14:39)
[2021-05-18] MEDS ORDERED: MEROPENEM CONSULT ACTIVE PRN (15:20)
[2021-05-18] MEDS: MEROPENEM 500 MG in SYRINGE 0 ML IV SCH ×2 (16:15→21:43)
--- NOTE | 2021-05-18 18:40 | Hospitalist Progress Note ---
Date of Service May 18, 2021 delayed entry date of service noted above Assessment & Plan (1) Abscess of gluteal region: (2) Hidradenitis suppurativa: (3) Paranoid schizophrenia: Plan: hypotension resolved cultures pending continue empiric antibiotics including Imipenem PRN analgesics Gen Surg following Admission and Anticipated Discharge Date Admission Date: May 17, 2021 Subjective ff up for gluteal abscess, etc seen resting in bed, comfortable states he feels improved compared to previous day gluteal abscess site- sore- relieved by analgesics no chest pain, dyspnea, palpitations, dizziness no other symptoms Review of Systems Review of Systems: all noted and negative except for above Physical Exam Physical Exam: General- oriented x 3, not in distress, speaks in sentences with no effort or accessory muscle use Eyes- anicteric Neck- no JVD Lungs- clear breath sounds bilaterally, no rales/wheezes Heart- normal rate, regular rhythm; no murmurs Abdomen- normal bowel sounds, nondistended, soft, nontender Buttock- left buttock wound with packing in place- no bleeding, discharge, surrounding edema Extremities- no pretibial edema, no calf tenderness Neuro- alert, oriented x 3; no gross focal neurologic deficits Skin- warm & dry Results & Data Results & Data ([facility]) Vital Signs (Past 12 Hours) Vital Signs Temp Pulse Pulse Resp BP BP BP 05/18/21 17:48 36.6 C 73 20 80/47 L 92/53 L 05/18/21 15:36 36.6 C 67 18 113/73 05/18/21 15:17 36.6 C 75 18 114/61 05/18/21 12:01 61 14 93/60 L 05/18/21 12:00 61 14 97/65 L 05/18/21 11:46 61 20 106/60 05/18/21 11:41 62 16 95/60 L 05/18/21 11:34 57 L 18 72/36 L 05/18/21 09:47 90 20 85/50 L 05/18/21 08:34 36.5 C 68 16 90/60 L Pulse Ox 05/18/21 17:48 96 05/18/21 15:36 100 05/18/21 15:17 96 05/18/21 12:01 100 05/18/21 12:00 97 05/18/21 11:46 100 05/18/21 11:41 98 05/18/21 11:34 98 05/18/21 09:47 100 05/18/21 08:34 100 all noted and reviewed including below
[2021-05-19] MEDS: SODIUM CHLORIDE 0.9% 1000ML 1,000 ML IV SCH ×3 (02:21→19:53)
[2021-05-19] MEDS: KETOROLAC TROMETHAMINE 15 MG/ML VIAL IV PRN ×2 (02:37→10:20)
[2021-05-19] MEDS: MEROPENEM 500 MG in SYRINGE 0 ML IV SCH ×4 (04:24→21:42)
[2021-05-19] MEDS: VANCOMYCIN HCL 750 MG in SODIUM CHLORIDE 0.9% 250 ML IV SCH ×3 (06:33→21:42)
[2021-05-19 08:05] LABS: Est GFR (African American) 138.2 ml/min; Est GFR (Non-African American) 119.3 ml/min
[2021-05-19 08:09] LABS: Ferritin 217.5 ng/ml (8-388)
[2021-05-19 08:33] LABS: Folate (Folic Acid) 3.6 ng/ml (>5.38)
[2021-05-19 10:59] LABS: Basophils # (auto) 0.01 K/uL (0-0.2); Basophils % (auto) 0.1 %; Eosinophils # (auto) 0.26 K/uL (0-0.5); Eosinophils % (auto) 3.3 %; Hematocrit (blood only) 26.7 % (42-52); Hemoglobin 8.4 g/dL (14.0-18.0); Immature Granulocytes # (auto) 0.02 K/uL (0.00-0.02); Immature Granulocytes % (auto) 0.3 %; Lymphocytes % (auto) 30.8 %; Mean Corpuscular Hemoglobin 33.9 pg (25-34); Mean Corpuscular Hgb Conc 31.5 g/dL (32-36); Mean Corpuscular Volume 107.7 fL (80-100); Mean Platelet Volume 8.6 fL (7.4-10.4); Monocytes # (auto) 0.49 K/uL (0.11-0.59); Monocytes % (auto) 6.3 %; Neutrophils # (auto) 4.61 K/uL (1.4-6.5); Neutrophils % (auto) 59.2 %; Platelet Count 431 K/uL (130-400); RDW Coefficient of Variation 15.7 % (11.5-14.5); RDW Standard Deviation 62.3 fL (36.4-46.3); Red Blood Count 2.48 M/uL (4.7-6.1); White Blood Count 7.79 K/uL (4.8-10.8)
[2021-05-19] MEDS: FOLIC ACID 1 MG TAB PO SCH (11:32)
[2021-05-19] MEDS ORDERED: VANCOMYCIN TROUGH ONE (13:30)
--- NOTE | 2021-05-19 14:28 | Pharmacy Report ---
Pharmacy Vanc AUC Short Note - Date of Service May 19, 2021 - Assessment & Plan Assessment 41 year old M receiving vancomycin/meropenem for gluteal abscess. Day # 2 of antimicrobial therapy. Plan Vancomycin * AUC/ALBER is the preferred PK/PD target for vancomycin * AUC guided dosing is effective and associated with decreased risk of nephrotoxicity compared to traditional trough targets * Vancomycin level came back at ~16 mcg/ml, this dosing is predicted to achieve an AUC/ALBER of 400-600 mg/L.hr and may be associated with a 18 % risk of nephrotoxicity * Plan to continue current vancomycin regimen of 750 mg iv q 8 hrs * Will plan to recheck level in next 2-3 days if abx continued * Awaiting buttock cultures from I&D Pharmacy will continue to follow and will adjust dose/frequency as necessary. Thank you.
[2021-05-19] MEDS: traMADol HCL 50 MG TABLET PO PRN ×2 (15:07→19:53)
--- NOTE | 2021-05-19 15:12 | Surgery Progress Note ---
Date of Service May 19, 2021 Assessment & Plan (1) Abscess of gluteal region: Plan: POD # 1 s/p bedside I&D of Abscess of left inferior buttock Plan: Will add po tramadol prn pain, continue IV Tylenol and Toradol as needed Packing changed today, outer dressings change as needed to keep clean and dry Continue IV abx, likely needs another [address] of IV [address] Hernandez has seen and examined pt, agrees with above. Admission and Anticipated Discharge Date Admission Date: May 17, 2021 Subjective feeling slightly better than yesterday pain slightly improved but still present Pain medication slightly helping but not much no fevers Physical Exam Constitutional: WD/WN, vitals as above no acute distress and not ill appearing Respiratory: normal respiratory effort Gastrointestinal (Abdomen): Left inferior buttocks with packing present, still some purulent drainage expressed on palpation. Tender to palpation. Skin: no rashes, warm and dry Psychiatric: Orientation: alert and oriented x 3 Results & Data ([facility]) Vital Signs (Past 12 Hours) Vital Signs Temp Pulse Resp BP Pulse Ox 05/19/21 06:58 36.9 C 68 18 130/77 95 Laboratory Results 05/19/21 05/19/21 05/19/21 Range/Units 13:40 07:05 07:05 WBC 7.79 (4.8-10.8) K/uL RBC 2.48 L (4.7-6.1) M/uL Hgb 8.4 L (14.0-18.0) g/dL Hct 26.7 L (42-52) % MCV 107.7 H (80-100) fL MCH 33.9 (25-34) pg MCHC 31.5 L (32-36) g/dL RDW Std Deviation 62.3 H (36.4-46.3) fL RDW Coeff of Fausto 15.7 H (11.5-14.5) % Plt Count 431 H (130-400) K/uL MPV 8.6 (7.4-10.4) fL Immature Gran % (Auto) 0.3 % Neut % (Auto) 59.2 % Lymph % (Auto) 30.8 % [place] % (Auto) 6.3 % Eos % (Auto) 3.3 % Baso % (Auto) 0.1 % Neut # (Auto) 4.61 (1.4-6.5) K/uL Lymph # (Auto) 2.40 (1.2-3.4) K/uL [place] # (Auto) 0.49 (0.11-0.59) K/uL Eos # (Auto) 0.26 (0-0.5) K/uL Baso # (Auto) 0.01 (0-0.2) K/uL Immature Gran # (Auto) 0.02 (0.00-0.02) K/uL Creatinine (0.6-1.4) mg/dl Est Cr Clr Drug Dosing ml/min Est GFR ( Amer) ml/min Est GFR (Non-Af Amer) ml/min Lactate (0.4-2.0) mmol/L Iron (35-175) mcg/dl TIBC (250-450) mcg/dl Ferritin (8-388) ng/ml Vitamin B12 341 (193-986) pg/ml Folate 3.60 L (>5.38) ng/ml Vancomycin Trough 16.3 (See Comment) mcg/ml 05/19/21 05/18/21 Range/Units 07:05 16:47 WBC (4.8-10.8) K/uL RBC (4.7-6.1) M/uL Hgb (14.0-18.0) g/dL Hct (42-52) % MCV (80-100) fL MCH (25-34) pg MCHC (32-36) g/dL RDW Std Deviation (36.4-46.3) fL RDW Coeff of Fausto (11.5-14.5) % Plt Count (130-400) K/uL MPV (7.4-10.4) fL Immature Gran % (Auto) % Neut % (Auto) % Lymph % (Auto) % [place] % (Auto) % Eos % (Auto) % Baso % (Auto) % Neut # (Auto) (1.4-6.5) K/uL Lymph # (Auto) (1.2-3.4) K/uL [place] # (Auto) (0.11-0.59) K/uL Eos # (Auto) (0-0.5) K/uL Baso # (Auto) (0-0.2) K/uL Immature Gran # (Auto) (0.00-0.02) K/uL Creatinine 0.66 (0.6-1.4) mg/dl Est Cr Clr Drug Dosing 160.0 ml/min Est GFR ( Amer) 138.2 ml/min Est GFR (Non-Af Amer) 119.3 ml/min Lactate 1.2 (0.4-2.0) mmol/L Iron 67 (35-175) mcg/dl TIBC 161 L (250-450) mcg/dl Ferritin 217.5 (8-388) ng/ml Vitamin B12 (193-986) pg/ml Folate (>5.38) ng/ml Vancomycin Trough (See Comment) mcg/ml Microbiology 05/18/21 Unknown Gram Stain - Final Buttock,Left Aerobic and Anaerobic Culture - Preliminary Pin-point growth present, reincubating. 05/17/21 22:30 Gram Stain - Final Buttock,Left Deep Wound Culture - Preliminary Pin-point growth present, reincubating. 05/17/21 20:24 Aerobic Blood Culture - Preliminary Blood No growth in Aerobic bottle after 24 hours. Anaerobic Blood Culture - Preliminary No growth in Anaerobic bottle after 24 hours. 05/17/21 20:22 Aerobic Blood Culture - Preliminary Blood No growth in Aerobic bottle after 24 hours. Anaerobic Blood Culture - Preliminary No growth in Anaerobic bottle after 24 hours.
--- NOTE | 2021-05-19 23:47 | Hospitalist Progress Note ---
Date of Service May 19, 2021 delayed entry date of service noted above Assessment & Plan (1) Abscess of gluteal region: Plan: ASSESSMENT AND PLAN: This is a 41-year-old male with history of paranoid schizophrenia, hidradenitis suppurativa, history of multiple abscesses, ongoing tobacco abuse, history of anemia, who presents with gluteal abscess. 1. Gluteal abscess: On the left side. - hypotensive on hospital day 2 required 2 L IV NSS bolus - s/p I&D by Gen Surg at bedside ff up cultures - continue Vanco + Meropenem IV - PRN analgesics IV NSS 2. History of paranoid schizophrenia: Continue home medication. 3. Anemia. - Folate low, supplement started 4. Deep venous thrombosis prophylaxis: SCDs Disposition anticipate d/c home when medically stable Admission and Anticipated Discharge Date Admission Date: May 17, 2021 Subjective ff up for gluteal abscess, etc resting in bed, comfortable states he feels improved overall feels sore on the I&D site- left buttock no chest pain, dyspnea, palpitations, dizziness no other symptoms Review of Systems Review of Systems: all noted and negative except for above Physical Exam Constitutional: General- oriented x 3, not in distress, speaks in sentences with no effort or accessory muscle use somewhat weak Eyes- anicteric Neck- no JVD Lungs- clear breath sounds bilaterally, no rales/wheezes Heart- normal rate, regular rhythm; no murmurs Abdomen- normal bowel sounds, nondistended, soft, nontender Extremities- no pretibial edema, no calf tenderness left buttock- no edema, hematoma, wound with packing in place Neuro- alert, oriented x 3; no gross focal neurologic deficits Skin- warm & dry Results & Data Results & Data ([facility]) Vital Signs (Past 12 Hours) Vital Signs Temp Pulse Resp BP BP Pulse Ox 05/19/21 23:18 37 C 54 L 16 125/76 94 05/19/21 15:12 36.9 C 64 16 98/59 L 93 all noted and reviewed including below
[2021-05-20] MEDS: traMADol HCL 50 MG TABLET PO PRN ×3 (02:50→17:37)
[2021-05-20] MEDS: SODIUM CHLORIDE 0.9% 1000ML 1,000 ML IV SCH ×3 (02:51→20:09)
[2021-05-20] MEDS: MEROPENEM 500 MG in SYRINGE 0 ML IV SCH ×2 (04:11→09:41)
[2021-05-20] MEDS: VANCOMYCIN HCL 750 MG in SODIUM CHLORIDE 0.9% 250 ML IV SCH ×3 (05:19→22:38)
[2021-05-20] MEDS: FOLIC ACID 1 MG TAB PO SCH (08:05)
[2021-05-20] MEDS: KETOROLAC TROMETHAMINE 15 MG/ML VIAL IV PRN ×3 (08:05→20:09)
[2021-05-20 08:17] LABS: Creatinine Clr Calc Pharmacy 167.7 ml/min; Est GFR (African American) 140.9 ml/min; Est GFR (Non-African American) 121.5 ml/min
[2021-05-20 10:23] LABS: Hematocrit (blood only) 27.6 % (42-52); Hemoglobin 8.7 g/dL (14.0-18.0); Mean Corpuscular Hemoglobin 34.3 pg (25-34); Mean Corpuscular Hgb Conc 31.5 g/dL (32-36); Mean Corpuscular Volume 108.7 fL (80-100); Mean Platelet Volume 8.5 fL (7.4-10.4); Platelet Count 425 K/uL (130-400); RDW Coefficient of Variation 15.7 % (11.5-14.5); Red Blood Count 2.54 M/uL (4.7-6.1); White Blood Count 7.15 K/uL (4.8-10.8)
[2021-05-20] MEDS: metroNIDAZOLE 500 MG TAB PO SCH ×2 (14:09→20:09)
--- NOTE | 2021-05-20 14:11 | Surgery Progress Note ---
Date of Service May 20, 2021 Assessment & Plan (1) Abscess of gluteal region: Plan: POD # 1 s/p bedside I&D of Abscess of left inferior buttock Plan: Will add po tramadol prn pain, continue IV Tylenol and Toradol as needed Packing changed today, outer dressings change as needed to keep clean and dry Continue IV abx, likely needs another 24 hours of IV antibiotics Dr. Hernandez has seen and examined pt, agrees with above. F/U S/P I/D left gluteal abscess, POD 3 doing better, no fever, consult wound care nurse for dressing change, continue IV antibiotic treatment, will F/U Admission and Anticipated Discharge Date Admission Date: May 17, 2021 Subjective ff up for gluteal abscess, etc resting in bed, comfortable states he feels improved overall feels sore on the I&D site- left buttock no chest pain, dyspnea, palpitations, dizziness no other symptoms 05/20/2021 DR. Richardson F/U S/P I/D left gluteal abscess, POD 3 pt doing better, less pain, no fever, the wound is dry, Physical Exam Constitutional: WD/WN, vitals as above Eyes: PERRL, conjunctivae normal, anicteric sclerae Neck: trachea midline, no thyromegaly Respiratory: normal respiratory effort, lungs clear to auscultation Cardiovascular: RRR, no murmur, no edema Gastrointestinal (Abdomen): normal bowel sounds, soft, nontender, no hepatosplenomegaly Skin: the wound is dry, some edema, Neurologic: patellar DTR's 2+ bilat, sensation intact Psychiatric: A+Ox3, euthymic affect Results & Data ([facility]) Vital Signs (Past 12 Hours) Vital Signs Temp Pulse Resp BP Pulse Ox 05/20/21 06:54 36.9 C 51 L 16 129/78 94 Laboratory Results Abnormal lab results 05/20/21 Range/Units 07:22 RBC 2.54 L (4.7-6.1) M/uL Hgb 8.7 L (14.0-18.0) g/dL Hct 27.6 L (42-52) % MCV 108.7 H (80-100) fL MCH 34.3 H (25-34) pg MCHC 31.5 L (32-36) g/dL RDW Std Deviation 62.0 H (36.4-46.3) fL RDW Coeff of Fausto 15.7 H (11.5-14.5) % Plt Count 425 H (130-400) K/uL
--- NOTE | 2021-05-20 23:42 | Hospitalist Progress Note ---
Date of Service May 20, 2021 Assessment & Plan (1) Abscess of gluteal region: Plan: ASSESSMENT AND PLAN: This is a 41-year-old male with history of paranoid schizophrenia, hidradenitis suppurativa, history of multiple abscesses, ongoing tobacco abuse, history of anemia, who presents with gluteal abscess. Hidradenitis suppurativa: Gluteal abscess: On the left side. hypotensive on hospital day 2 that required 2 L IV NSS bolus - s/p I&D by Gen Surg at bedside Wound cx grew alpha not enterococcus Currently on IV Vanco + Meropenem IV, will d/c Meropenem Will add flagyl and continue Vanco Continue monitor closely History of paranoid schizophrenia: Continue home medication. Anemia. Hgb 8.7 Continue monitor CBC Deep venous thrombosis prophylaxis: SCDs Disposition anticipate d/c home when medically stable Admission and Anticipated Discharge Date Admission Date: May 17, 2021 Subjective Pt was seen and examined for follow up of gluteal abscess Lying in bed with no acute distress Pt said that he feels fine Denies any chest pain, dyspnea, palpitations, dizziness Review of Systems Review of Systems: All systems reviewed & are unremarkable except as noted in Subjective Physical Exam Physical Exam: General- No acute distress Head- atraumatic Eyes- PERRL, EOMI, ENT- oropharynx clear Neck- supple, no JVD Lungs- clear to auscultation Heart- regular rhythm; no murmur Abdomen- normal bowel sounds, soft, nontender Extremities- no calf tenderness Neuro- alert, oriented x 3; PERRL, EOMI; no facial palsy; no dysarthria - +sinus tract, buttock induration, + drainage Skin- warm & dry Results & Data Results & Data ([facility]) Vital Signs (Past 12 Hours) Vital Signs Temp Pulse Resp BP Pulse Ox 05/20/21 22:47 36.6 C 51 L 16 131/77 94 05/20/21 15:27 36.7 C 56 L 16 109/64 91
[2021-05-21] MEDS: VANCOMYCIN HCL 750 MG in SODIUM CHLORIDE 0.9% 250 ML IV SCH ×2 (05:35→13:47)
[2021-05-21] MEDS: SODIUM CHLORIDE 0.9% 1000ML 1,000 ML IV SCH ×2 (05:35→09:13)
[2021-05-21] MEDS: traMADol HCL 50 MG TABLET PO PRN (05:36)
[2021-05-21 07:55] LABS: Hematocrit (blood only) 33.2 % (42-52); Hemoglobin 10.7 g/dL (14.0-18.0); Mean Corpuscular Hemoglobin 34.7 pg (25-34); Mean Corpuscular Hgb Conc 32.2 g/dL (32-36); Mean Corpuscular Volume 107.8 fL (80-100); Mean Platelet Volume 8.6 fL (7.4-10.4); Platelet Count 465 K/uL (130-400); RDW Coefficient of Variation 15.6 % (11.5-14.5); RDW Standard Deviation 61.1 fL (36.4-46.3); Red Blood Count 3.08 M/uL (4.7-6.1); White Blood Count 9.37 K/uL (4.8-10.8)
[2021-05-21 08:35] LABS: BUN Creatinine Ratio 6.9 (10-20); Calcium 8.4 mg/dl (8.5-10.1); Creatinine Clr Calc Pharmacy 150.9 ml/min; Est GFR (African American) 134.9 ml/min; Est GFR (Non-African American) 116.4 ml/min; Potassium 3.5 mmol/L (3.5-5.1)
[2021-05-21] MEDS: FOLIC ACID 1 MG TAB PO SCH (08:40)
[2021-05-21] MEDS: metroNIDAZOLE 500 MG TAB PO SCH ×2 (08:40→13:48)
[2021-05-21] MEDS: KETOROLAC TROMETHAMINE 15 MG/ML VIAL IV PRN (08:52)
--- NOTE | 2021-05-21 12:19 | Surgery Progress Note ---
Date of Service May 21, 2021 Assessment & Plan (1) Abscess of gluteal region: Plan: POD # 1 s/p bedside I&D of Abscess of left inferior buttock Plan: Will add po tramadol prn pain, continue IV Tylenol and Toradol as needed Packing changed today, outer dressings change as needed to keep clean and dry Continue IV abx, likely needs another 24 hours of IV antibiotics Dr. Hernandez has seen and examined pt, agrees with above. F/U S/P I/D left gluteal abscess, POD 3 doing better, no fever, consult wound care nurse for dressing change, continue IV antibiotic treatment, will F/U 05/21/2021 12:21PM Dr. Richardson F/U S/P I/D left gluteal abscess, POD 4 doing better, no fever, normal WBC pt can be discharged home today, po bactrim 800/160 one pill, bid x 10 days, F/U [facility] wound care center on Tuesday for dressing change, pt agrees with the discharge, I answered all questions, F/U me prn, , sign off today, please call with questions, Thanks, Admission and Anticipated Discharge Date Admission Date: May 17, 2021 Subjective F/U S/P I/D left gluteal abscess, pt is doing better, no significant apin, the wound is dry, less redness, wound culture reviewed- Gram Stain Result Many Polys Few Gram Positive Cocci Few Gram Negative Bacilli Physical Exam Constitutional: WD/WN, vitals as above Eyes: PERRL, conjunctivae normal, anicteric sclerae Neck: trachea midline, no thyromegaly Respiratory: normal respiratory effort, lungs clear to auscultation Cardiovascular: RRR, no murmur, no edema Gastrointestinal (Abdomen): normal bowel sounds, soft, nontender, no hepatosplenomegaly Skin: the wound on gluteal area is dry, less redness, Neurologic: patellar DTR's 2+ bilat, sensation intact Psychiatric: A+Ox3, euthymic affect Results & Data ([facility]) Vital Signs (Past 12 Hours) Vital Signs Temp Pulse Resp BP Pulse Ox 05/21/21 06:58 36.9 C 60 16 159/75 H 92 Laboratory Results Abnormal lab results 05/21/21 05/21/21 Range/Units 07:32 07:32 RBC 3.08 L (4.7-6.1) M/uL Hgb 10.7 L (14.0-18.0) g/dL Hct 33.2 L (42-52) % MCV 107.8 H (80-100) fL MCH 34.7 H (25-34) pg RDW Std Deviation 61.1 H (36.4-46.3) fL RDW Coeff of Fausto 15.6 H (11.5-14.5) % Plt Count 465 H (130-400) K/uL Chloride 113 H (98-107) mmol/L BUN 5 L (7-18) mg/dl BUN/Creatinine Ratio 6.9 L (10-20) Calcium 8.4 L (8.5-10.1) mg/dl
--- NOTE | 2021-05-21 17:59 | Hospitalist Progress Note ---
Date of Service May 21, 2021 Assessment & Plan (1) Abscess of gluteal region: Plan: ASSESSMENT AND PLAN: This is a 41-year-old male with history of paranoid schizophrenia, hidradenitis suppurativa, history of multiple abscesses, ongoing tobacco abuse, history of anemia, who presents with gluteal abscess. Hidradenitis suppurativa: Gluteal abscess: On the left side. S/p I&D by Gen Surg at bedside Wound cx grew alpha not enterococcus Currently on flagyl and continue Vanco - transitioned to Augmentin BID today to complete 14 day course Continue monitor closely History of paranoid schizophrenia: Continue home medication Anemia. Hgb 8.7 Continue monitor CBC Deep venous thrombosis prophylaxis: SCDs Disposition anticipate d/c home when medically stable Admission and Anticipated Discharge Date Admission Date: May 17, 2021 Supervising Physician Co-Signing Physician Notes Patient was seen and examined. Agree with Madison PADRON exam assessment and plan. 41-year-old male with history of paranoid schizophrenia, hidradenitis suppurativa, history of multiple abscesses, ongoing tobacco abuse, history of anemia, who presents with gluteal abscess. Status post bedside I&D by general surgery. Wound culture grew alpha strep not Enterococcus. Currently on IV Vanco and Flagyl. Patient would like to go home today and does not want stay in the hospital. will transition to p.o. Augmentin to complete a total course of 14 days antibiotic. Will need to follow-up with wound care clinic in 1 to 2 weeks. Continue daily wound care treatment. MD Eduar Subjective Seen and examined in 375 bed 1. Feeling better today, still with tenderness to palpation to the area of I&D and gluteal fold. Denies any fever, chills, chest pain, shortness of breath, nausea, vomiting, abdominal pain, dysuria, diarrhea or constipation. Review of Systems Review of Systems: At least ten systems reviewed and negative except as noted in the HPI. Physical Exam Physical Exam: Gen: WD/WN, NAD, sitting in bedside chair, A&Ox3 HEENT: Normocephalic, atraumatic, conjunctivae moist, sclerae anicteric, mucous membranes moist Lung: Clear to Auscultation bilaterally, no wheezes/rales/rhonchi Heart: Regular rate, regular rhythm, no murmurs, rubs, or gallops Abdomen: Soft, NT, ND +BS x 4 - +sinus tract, buttock induration, + drainage Extremities: no edema Skin: Warm, no rash Results & Data Results & Data ([facility]) Vital Signs (Past 12 Hours) Vital Signs Temp Pulse Resp BP Pulse Ox 05/21/21 15:09 36.7 C 68 16 145/82 H 94 05/21/21 06:58 36.9 C 60 16 159/75 H 92 Laboratory Results Short CBC 05/21/21 Range/Units 07:32 WBC 9.37 (4.8-10.8) K/uL Hgb 10.7 L (14.0-18.0) g/dL Hct 33.2 L (42-52) % Plt Count 465 H (130-400) K/uL BMP 05/21/21 07:32 Sodium 142 Potassium 3.5 Chloride 113 H Carbon Dioxide 25 BUN 5 L Creatinine 0.70 Glucose 84 Calcium 8.4 L Diagnostic Findings Pelvis CT 05/17/21 18:43 CT pelvis w/IV con only CLINICAL HISTORY: Posterior buttocks pain. Evaluate for perirectal and buttock abscesses COMPARISON: 01/14/2020 CT DOSE: 771.84 mGy.cm TECHNIQUE: Standard CT of the Pelvis with intravenous contrast was performed. This CT exam was performed using one or more of the following dose reduction techniques: Automated exposure control, adjustment of the mA and/or kV according to patient size, or use of iterative reconstruction technique. CONTRAST: Optiray 320, 94 mL of nonionic intravenous contrast. The patient received oral contrast. FINDINGS: Soft tissues: There is abnormal skin thickening seen beginning superiorly along the medial crease of the buttocks on the left. It continues to extend inferiorly along the posterior aspect of the buttocks and upper thigh. Its lower extent, there is an enhancing fluid collection with thick-walled enhancement. This represents present for an abscess. It measures approximately 4.8 x 4.5 x 3.4 cm. Additional skin thickening of the median buttocks crease is present bilaterally with cellulitis also present on the right. No focal fluid collection is identified on the right. Osseous structures:There is no evidence for an acute fracture or dislocation. Bowel: The bowel gas pattern is within normal limits without evidence for dilatation or obstruction.. Bladder: The bladder is partially contracted with diffuse thickening of the bladder wall. : There is no evidence for pelvic mass or adenopathy. IMPRESSION: Abnormal skin thickening along the median buttocks crease, left greater than right extending along the posterior left thigh with a thick-walled enhancing fluid collection representing an abscess. ACT 112: Negative or not required by law. Electronically signed by: Norbert Humphries M.D. 05/17/2021 9:25 PM
--- NOTE | 2021-05-21 18:00 | Discharge Summary ---
Date of Service May 21, 2021 Admission HPI Per Admitting Provider A 41-year-old male with past medical history significant for hidradenitis suppurativa, paranoid schizophrenia, history of gluteal abscess , history of perirectal abscess, history of right facial abscess, depression, anemia, tobacco use disorder presents with left gluteal abscess starting a couple of days ago and lot of pain and draining. Denies any fever, denies any other complaints. Currently, resting comfortably and hemodynamically stable. No headache, no dizziness, no blurred visions, no earache, no runny nose, no sore throat, no cough. Appetite is okay. No difficulty swallowing. No chest pain or shortness of breath, no nausea, no vomiting, no abdominal pain. Normal bowel and bladder movements. No swelling in the legs. Ambulates okay. Lives with his parents. Admission Exam Per Admitting Provider GENERAL: The patient is of moderate build, not in acute distress. VITAL SIGNS: Temperature 36.3, pulse 75, respiratory rate 16, blood pressure 115/76, oxygen 99% on room air. HEENT: Pupils equal, round, and reactive to light. Oral mucosa moist. NECK: No JVD, no neck masses. CARDIOVASCULAR: S1 and S2 heard. Regular rate and rhythm. No murmur, no gallop. RESPIRATORY SYSTEM: Normal AP diameter. No accessory muscle use. No wheezing, no crackles. ABDOMEN: Soft, bowel sounds are present, nontender, no distention. CENTRAL NERVOUS SYSTEM: Cranial nerves II-XII grossly intact, nonfocal. EXTREMITIES: No edema, no erythema. SKIN: Left gluteal areas erythematous changes and swelling and some drainage seen. Principal Diagnosis Gluteal abscess, hidradenitis suppurativa Discharge Exam Gen: WD/WN, NAD, sitting in bedside chair, A&Ox3 HEENT: Normocephalic, atraumatic, conjunctivae moist, sclerae anicteric, mucous membranes moist Lung: Clear to Auscultation bilaterally, no wheezes/rales/rhonchi Heart: Regular rate, regular rhythm, no murmurs, rubs, or gallops Abdomen: Soft, NT, ND +BS x 4 - +sinus tract, buttock induration, + drainage Extremities: no edema Skin: Warm, no rash Discharge Data Allergies Allergy/AdvReac Type Severity Reaction Status Date / Time Penicillins Allergy Severe Rash Verified 12/26/21 18:51 Consultations 05/17/21 22:17 ED Decision to Admit Stat 05/18/21 08:00 Consult General Surgery Routine Ordered Studies 05/17/21 18:43 CT pelvis w/IV con only Stat Hospital Course (1) Abscess of gluteal region: (2) Hidradenitis suppurativa: (3) Paranoid schizophrenia: This is a 41-year-old male with history of paranoid schizophrenia, hidradenitis suppurativa, history of multiple abscesses, ongoing tobacco abuse, history of anemia, who presents with gluteal abscess. Undewent bedside I&D by general surgery on 05/18/21. Wound culture grew alpha strep not enterococcus. Initially received IV Vanco and IV Meropenem but then transitioned to Vanco and Flagyl. Discussed with ID, transitioned to Augmentin at time of discharge to complete 14 day course of antibiotic therapy. Received dressing change prior to discharge with home health arranged to come tomorrow. Follow up with PCP and wound care clinic. Patient to return home where he lives with parents. Hemodynamically stable and comfortable at time of discharge. Total Time Total Time Spent Total Time Spent (In Minutes): 35 Discharge Plan Discharge Items Patient Disposition: Home - Home Health Services Reason For Visit: RECTAL PAIN Discharge Diagnosis: Gluteal abscess, hidradenitis suppurativa Activity: Resume your previous activity Non-emergency contact: Primary Care Provider Call non-emergency contact if: you have any medication questions, your symptoms worsen, your pain is concerning for you and you have a fever Follow-up/Referrals: Kenneth Agrawal DO [Primary Care Provider] - Diet: Regular Addtl Attending Provider Instructions: You were admitted for recurrent gluteal abscess in setting of hidradenitis suppurativa. Incision and drainage was performed at bedside by general surgery and you were placed on IV antibiotics. Please complete course of Augmentin twice daily until gone. Home health care has been set up and will visit on Tuesday for wound care. Please keep area clean and dry. RECOMMENDATIONS FOR FOLLOW-UP: Please follow up with Dr. Agrawal on 05/26/21 at 3pm. Please follow up with wound care appointment set up for you on 06/10/20 OTHER INSTRUCTIONS: Seek medical attention if you have: * temperature above 101 * chest pain or trouble breathing * abdominal pain, nausea, vomiting * diarrhea, dark stools or bloody stools * any unanswered questions or concerns Call 911 if symptoms are severe. Please take good care of yourself. Call if you have any questions or problems. You can reach a [place] [facility] hospitalist on duty at [facility] 24 hours a day by calling [phone]. Madison Rooney PA-C [facility] Hospitalist Pending Studies at Discharge: No Stand-Alone Forms: My [facility], Smoking Cessation Medications and DC Order Prescriptions: New amoxicillin-pot clavulanate [Augmentin] 875-125 mg tablet 1 tab PO BID Qty: 20 RF: 0 Continued Invega Sustenna 117 mg/0.75 mL syringe 0 mg IM MONTHLY RF: 0 Discharge Orders: Discharge Order (Routine); Ordered 05/21/21 Ordered By: Madison Paiz/Other Patient Handouts: ED Abscess Antibiotic ..., ED Abscess, Incision And Drainage Admission Data Admit Date/Time: 05/17/21 23:33 Attending Provider: Vandana Witt Admit Provider: Jonathan Donohue Primary Care Provider: Kenneth Agrawal Other Providers: Jonathan Donohue ; Abraham Hernandez ; Hemal Green ; Paulina Jones ; Jennifer Edwards ; Gurinder Jamison ; Frankie Jean ; Meghan Lacey ; Mariah Rosales ; Benja Galindo Jr ; Сергей Richardson ; Francis Stock ; Brooke Paredes ; Iker Jones ; Madison Rooney ; [facility],Home Healthcare Other Interventions: Discharge Summary Assessment (RN) Last Done: 05/21/21 18:02
[2021-05-22] MEDS ORDERED: VANCOMYCIN TROUGH ONE (13:30)
== END 2021-05-21 18:46 | disposition home health service (06) | DRG 603 ==
LOC: ED 17:20 → EDINP 23:33 → SUATTDRO 23:33 → 3N 05-18 02:30

== ENCOUNTER 2021-07-06 03:10 | Inpatient (IN) ==
[2021-07-06] MEDS ORDERED: GI COCKTAIL ED USE PO ONE (03:32)
[2021-07-06] MEDS ORDERED: SODIUM CHLORIDE 0.9% 1000ML 1,000 ML IV ONE ×3 (03:32→17:22)
[2021-07-06] MEDS ORDERED: FAMOTIDINE 20MG IV PUSH 20 MG/5 ML SYR IV STA (03:32)
--- NOTE | 2021-07-06 03:42 | Emergency Department Note ---
History of Present Illness General Chief complaint: Shortness of Breath/Dyspnea Stated complaint: SHORTNESS OF BREATH,VOMITING Time Seen by Provider: 07/06/21 03:21 History of Present Illness Maximum Pain Intensity: 1 This 41-year-old male patient presents to the emergency department today for evaluation of epigastric burning and tightness and nausea and vomiting. Symptoms began 2 to 3 days ago. He denies any fever. He states he has been having difficulty keeping down food and fluids due to his symptoms. He denies any chest pain or difficulty breathing. He denies specific abdominal pain, just the tightness in his epigastrium. No diarrhea or constipation. No vomiting blood. No congestion, cough, sore throat, runny nose. He has not taken any medications for his symptoms. Home Medications Medication Instructions Recorded Confirmed Type paliperidone palmitate 117 mg/0.75 0 mg IM MONTHLY 10/23/19 05/17/21 History mL intramuscular syringe (Invega Sustenna) Allergies Allergy/AdvReac Type Severity Reaction Status Date / Time Penicillins Allergy Severe Rash Verified 07/02/21 14:21 Past Med/Surg History Medical History Acute hypokalemia Anemia Cyst of face Depression Facial abscess Hidradenitis suppurativa Hypomagnesemia Hyponatremia Leukocytosis Paranoid schizophrenia Paranoid schizophrenia Perianal abscess Perirectal abscess Tobacco use disorder Surgical History History of incision and drainage Family History Other Cancer Denies family history of Schizophrenia Social History Smoking Status: Current every day smoker Tobacco Type: Cigarettes packs per day: 0.5; Cigarettes Per Day: 10; Second Hand Exposure: No; Hx Alcohol Use: No Hx Substance Use: No Preferred Language: Pakistani Communication Ability: Effective Visual Impairment: No Limitations Hearing Ability: Normal Deliverer Outside Required: No Beliefs That Will Affect Care: None marital status: Single Current Living Situation: Parent Current Living Situation Comment: resides with mom and dad. current occupational status: disabled How many Children do You have: 0 Feels Safe at Home: Yes during the past year weight has: remained stable Assistive Devices: None Review of Systems A total of 10 systems reviewed and were otherwise negative Physical Exam Vital Signs Vital Signs - 24 hr 07/06/21 03:13 07/06/21 03:50 07/06/21 04:00 Temperature 36.4 C L Temperature Source Temporal Artery Scan Pulse Rate 102 H Pulse Rate [Apical] 86 Respiratory Rate 20 16 Respiratory Effort / Characteristics Non-Labored Spontaneous Respiratory Depth Normal Normal Respiratory Pattern Regular Blood Pressure 109/75 Blood Pressure [Right Arm] 107/63 Blood Pressure Mean 86 Blood Pressure Mean [Right Arm] 77 Blood Pressure Position [Right Arm] Semi-fowlers Pulse Oximetry 99 100 100 Oxygen Delivery Method Room Air Room Air Room Air Sepsis New/Unexplained Change in Mental Status N/A Sepsis Action Taken by Nursing No Action Required 07/06/21 04:08 07/06/21 05:00 Temperature Temperature Source Pulse Rate Pulse Rate [Apical] 89 Respiratory Rate 18 Respiratory Effort / Characteristics Non-Labored Non-Labored Spontaneous Respiratory Depth Normal Normal Respiratory Pattern Regular Blood Pressure Blood Pressure [Right Arm] 104/49 L Blood Pressure Mean Blood Pressure Mean [Right Arm] 67 Blood Pressure Position [Right Arm] Pulse Oximetry 93 Oxygen Delivery Method Room Air Sepsis New/Unexplained Change in Mental Status Sepsis Action Taken by Nursing VITALS: Vitals are noted on the nurse's note and reviewed by myself. Vital signs stable. GENERAL: This is a 41-year-old black male, in no acute distress, nondiaphoretic, well-developed well-nourished. SKIN: The skin was without rashes, erythema, edema, or bruising. There is no tenting of the skin. Capillary refill less than 2 seconds. HEAD: Normocephalic atraumatic. EYES: Conjunctivae without injection, sclerae without icterus. NECK: Supple without nuchal rigidity. No lymphadenopathy. Cervical spine is nontender. No JVD. HEART: Regular rate and rhythm without murmurs gallops or rubs. LUNGS: Clear to auscultation bilaterally without wheezes, rales or rhonchi. No retractions or accessory muscle use. ABDOMEN: Positive bowel sounds x 4. Soft, nontender, without masses or organomegaly. Boucher sign negative. No guarding or rebound tenderness. MUSCULOSKELETAL: No muscle atrophy, erythema, or edema noted. Full range of motion without joint tenderness in all extremities. No tenderness to palpation. Normal gait. Strength 5/5 throughout. NEURO: Patient was alert and oriented to person place and time. No focal neurological deficits. Course Course The patient was seen and evaluated as above. An order was placed for continuous cardiac monitoring. The monitor shows a normal sinus rhythm at a rate of 89 bpm. IV access obtained, labs drawn. Patient hydrated with IV fluids medicated with Pepcid, Benadryl, Compazine, GI cocktail Imaging performed and reviewed by myself as noted. Labs reviewed by myself. Potassium 2.3. I discussed the findings with the patient at bedside. Patient agreeable to admission. I discussed case with the human resources manager. I discussed the case with Dr. Magana, [facility]. He did agree to see and evaluate the patient for admission. Administered Medications Discontinued Medications Al Hydrox/Mg Hydrox/Simethicone (Gi Cocktail Ed Use) 1 dose PO ONE ONE Stop: 07/06/21 03:33 Last Admin: 07/06/21 03:58 Dose: 1 dose Documented by: [id number] Diphenhydramine HCl (Diphenhydramine 50 Mg/Ml Vial) 25 mg IV NOW STA Stop: 07/06/21 04:11 Last Admin: 07/06/21 04:27 Dose: 25 mg Documented by: [id number] Sodium Chloride (Nss 1000ml) 1,000 mls @ 999 mls/hr IV .Q1H1M ONE Stop: 07/06/21 04:32 Last Infusion: 07/06/21 04:59 Dose: 0 mls/hr Documented by: [id number] Admin: 07/06/21 03:58 Dose: 999 mls/hr Documented by: [id number] Famotidine (Pepcid 20mg Iv Push) 20 mg in 5 mls @ 2.5 mls/min IV NOW STA Stop: 07/06/21 03:33 Last Admin: 07/06/21 03:58 Dose: 2.5 mls/min Documented by: [id number] Prochlorperazine (Compazine) 2 mls @ 1 mls/min IV ONE ONE Stop: 07/06/21 04:11 Last Admin: 07/06/21 04:27 Dose: 1 mls/min Documented by: [id number] Ondansetron HCl (Ondansetron Inj 2 Mg/Ml 2 Ml Vial) 4 mg IV NOW STA Stop: 07/06/21 03:33 Last Admin: 07/06/21 04:10 Dose: Not Given Documented by: [id number] Potassium Chloride (Potassium Chloride Crtab 20 Meq Tabcr) 40 meq PO NOW STA Stop: 07/06/21 05:25 Last Admin: 07/06/21 05:33 Dose: 40 meq Documented by: [id number] Medical Decision Making Differential Diagnosis Cardiac ischemia, aortic dissection, pulmonary embolism, pneumothorax, pneumonia, pericarditis, myocarditis, esophageal rupture, GERD, cholecystitis, pancreatitis, musculoskeletal, as well as other pathologies. Medical Records Attestation: I reviewed the patient's medical records. Home Medications Current Medication List: was personally reviewed by me Laboratory Data No leukocytosis. Anemia appears stable. Hemoglobin 10.8. Platelet count m ildly elevated at 418,000. Potassium 2.3. Sodium 129. Troponin negative. Lipase 6. Procalcitonin negative. Influenza and COVID-19 testing negative. Result diagrams: 07/06/21 03:54 07/06/21 03:54 Lab Results 07/06/21 07/06/21 07/06/21 Range/Units 03:54 03:54 03:54 WBC 5.82 (4.8-10.8) K/uL RBC 3.08 L (4.7-6.1) M/uL Hgb 10.8 L (14.0-18.0) g/dL Hct 31.6 L (42-52) % MCV 102.6 H (80-100) fL MCH 35.1 H (25-34) pg MCHC 34.2 (32-36) g/dL RDW Std Deviation 52.9 H (36.4-46.3) fL RDW Coeff of Fausto 14.0 (11.5-14.5) % Plt Count 418 H (130-400) K/uL MPV 8.3 (7.4-10.4) fL Immature Gran % (Auto) 0.2 % Neut % (Auto) 39.6 % Lymph % (Auto) 51.4 % [place] % (Auto) 7.4 % Eos % (Auto) 1.2 % Baso % (Auto) 0.2 % Neut # (Auto) 2.31 (1.4-6.5) K/uL Lymph # (Auto) 2.99 (1.2-3.4) K/uL [place] # (Auto) 0.43 (0.11-0.59) K/uL Eos # (Auto) 0.07 (0-0.5) K/uL Baso # (Auto) 0.01 (0-0.2) K/uL Immature Gran # (Auto) 0.01 (0.00-0.02) K/uL APTT (21.0-31.0) Seconds PTT Ratio Sodium 129 L (136-145) mmol/L Potassium 2.3 L* (3.5-5.1) mmol/L Chloride 89 L (98-107) mmol/L Carbon Dioxide 29 (21-32) mmol/L Anion Gap 11 (3-11) BUN 4 L (6-23) mg/dl Creatinine 0.60 (0.6-1.4) mg/dl Est Cr Clr Drug Dosing 176.0 ml/min Est GFR ( Amer) 143.7 ml/min Est GFR (Non-Af Amer) 124.0 ml/min BUN/Creatinine Ratio 6.7 L (10-20) Glucose 93 (70-99(Fasting)) mg/dl Calcium 8.5 (8.5-10.1) mg/dl Magnesium (1.7-2.4) mg/dl Total Bilirubin 0.9 (0.2-1.0) mg/dl AST 34 (13-39) U/L ALT 16 (7-52) U/L Alkaline Phosphatase 72 (34-104) U/L Troponin I < 0.03 (0-0.04) ng/ml Total Protein 6.7 (6.0-8.3) gm/dl Albumin 3.7 (3.4-5.0) gm/dl Globulin 3.0 (2.5-4.0) gm/dl Albumin/Globulin Ratio 1.2 (0.9-2) Lipase 6 L (11-82) U/L Procalcitonin < 0.05 (0-0.5) ng/ml Influ A Molecular Assay (Negative) Influ B Molecular Assay (Negative) SARS-CoV-2, RNA, NAAT (NEGATIVE) 07/06/21 07/06/21 07/06/21 Range/Units 03:54 03:54 03:54 WBC (4.8-10.8) K/uL RBC (4.7-6.1) M/uL Hgb (14.0-18.0) g/dL Hct (42-52) % MCV (80-100) fL MCH (25-34) pg MCHC (32-36) g/dL RDW Std Deviation (36.4-46.3) fL RDW Coeff of Fausto (11.5-14.5) % Plt Count (130-400) K/uL MPV (7.4-10.4) fL Immature Gran % (Auto) % Neut % (Auto) % Lymph % (Auto) % [place] % (Auto) % Eos % (Auto) % Baso % (Auto) % Neut # (Auto) (1.4-6.5) K/uL Lymph # (Auto) (1.2-3.4) K/uL [place] # (Auto) (0.11-0.59) K/uL Eos # (Auto) (0-0.5) K/uL Baso # (Auto) (0-0.2) K/uL Immature Gran # (Auto) (0.00-0.02) K/uL APTT (21.0-31.0) Seconds PTT Ratio Sodium (136-145) mmol/L Potassium (3.5-5.1) mmol/L Chloride (98-107) mmol/L Carbon Dioxide (21-32) mmol/L Anion Gap (3-11) BUN (6-23) mg/dl Creatinine (0.6-1.4) mg/dl Est Cr Clr Drug Dosing ml/min Est GFR ( Amer) ml/min Est GFR (Non-Af Amer) ml/min BUN/Creatinine Ratio (10-20) Glucose (70-99(Fasting)) mg/dl Calcium (8.5-10.1) mg/dl Magnesium 1.5 L (1.7-2.4) mg/dl Total Bilirubin (0.2-1.0) mg/dl AST (13-39) U/L ALT (7-52) U/L Alkaline Phosphatase (34-104) U/L Troponin I (0-0.04) ng/ml Total Protein (6.0-8.3) gm/dl Albumin (3.4-5.0) gm/dl Globulin (2.5-4.0) gm/dl Albumin/Globulin Ratio (0.9-2) Lipase (11-82) U/L Procalcitonin (0-0.5) ng/ml Influ A Molecular Assay Negative (Negative) Influ B Molecular Assay Negative (Negative) SARS-CoV-2, RNA, NAAT NEGATIVE (NEGATIVE) 07/06/21 Range/Units 03:54 WBC (4.8-10.8) K/uL RBC (4.7-6.1) M/uL Hgb (14.0-18.0) g/dL Hct (42-52) % MCV (80-100) fL MCH (25-34) pg MCHC (32-36) g/dL RDW Std Deviation (36.4-46.3) fL RDW Coeff of Fausto (11.5-14.5) % Plt Count (130-400) K/uL MPV (7.4-10.4) fL Immature Gran % (Auto) % Neut % (Auto) % Lymph % (Auto) % [place] % (Auto) % Eos % (Auto) % Baso % (Auto) % Neut # (Auto) (1.4-6.5) K/uL Lymph # (Auto) (1.2-3.4) K/uL [place] # (Auto) (0.11-0.59) K/uL Eos # (Auto) (0-0.5) K/uL Baso # (Auto) (0-0.2) K/uL Immature Gran # (Auto) (0.00-0.02) K/uL APTT 29.6 (21.0-31.0) Seconds PTT Ratio 1.1 Sodium (136-145) mmol/L Potassium (3.5-5.1) mmol/L Chloride (98-107) mmol/L Carbon Dioxide (21-32) mmol/L Anion Gap (3-11) BUN (6-23) mg/dl Creatinine (0.6-1.4) mg/dl Est Cr Clr Drug Dosing ml/min Est GFR ( Amer) ml/min Est GFR (Non-Af Amer) ml/min BUN/Creatinine Ratio (10-20) Glucose (70-99(Fasting)) mg/dl Calcium (8.5-10.1) mg/dl Magnesium (1.7-2.4) mg/dl Total Bilirubin (0.2-1.0) mg/dl AST (13-39) U/L ALT (7-52) U/L Alkaline Phosphatase (34-104) U/L Troponin I (0-0.04) ng/ml Total Protein (6.0-8.3) gm/dl Albumin (3.4-5.0) gm/dl Globulin (2.5-4.0) gm/dl Albumin/Globulin Ratio (0.9-2) Lipase (11-82) U/L Procalcitonin (0-0.5) ng/ml Influ A Molecular Assay (Negative) Influ B Molecular Assay (Negative) SARS-CoV-2, RNA, NAAT (NEGATIVE) Imaging Data My Impression: Chest x-ray. Findings: A chest x-ray was performed and revealed no pneumothorax, effusion, infiltrate, pulmonary edema, free air under the diaphragm, or wide mediastinum. ECG Data Attestation: I personally reviewed and interpreted this ECG as follows: Indication: + chest pain Rate (beats per minute): 89 Rhythm: + normal sinus ECG Intervals/blocks: + Prolonged QT (QT 418, QTc 500) ECG [place]: + Normal ECG ST segments: no ST depression, no ST elevation or no T-wave inversions Comparison ECG Date: from (11/05/2020) Change: no significant change Blood Pressure Blood Pressure Findings: Normal blood pressure MDM Narrative This 41-year-old male patient presents to the emergency department today for evaluation of shortness of breath, nausea, vomiting, and pain in his epigastrium/discomfort in his chest. The patient was found to be hypokalemic with a potassium of 2.3. The patient is afebrile. No evidence of pneumonia on chest x-ray. Labs otherwise unrevealing. Hydrated here in the ED. He was medicated with Pepcid, GI cocktail, Compazine, Benadryl. His nausea did somewhat improve, but the chest pain remained. Given the ongoing discomfort and hypokalemia, I did recommend admission. The patient was agreeable. [facility]. Please see hospitalist dictation regarding ongoing management care of this patient The chart was completed utilizing [employer] voice recognition software. Grammatical errors, random word insertions, pronoun errors, and incomplete sentences are an occasional consequence of this system due to software limitations, ambient noise, and hardware issues. Any formal questions or concerns about the content, text, or information contained within the body of this dictation should be directly addressed to the provider for clarification. Impression & Plan Dyspnea, Acute hypokalemia, Nausea & vomiting Discharge Plan Visit Data Chief Complaint: Shortness of Breath/Dyspnea Stated Complaint: SHORTNESS OF BREATH,VOMITING ED Provider: Teagan Melendez ED Midlevel Provider: Cheri Rivera Discharge Problem: Dyspnea, Acute hypokalemia, Nausea & vomiting Patient Disposition: Admitted As Inpatient Forms Stand Alone Forms: [facility] [employer] Prescriptions Prescriptions: No Action Invega Sustenna 117 mg/0.75 mL syringe 0 mg IM MONTHLY RF: 0 Referrals Referrals: Kenneth Agrawal DO [Primary Care Provider] -
[2021-07-06] MEDS: ONDANSETRON INJ 2 MG/ML 2 ML VIAL IV STA ×2 (03:58→04:10)
[2021-07-06 04:10] LABS: Hematocrit (blood only) 31.6 % (42-52); Hemoglobin 10.8 g/dL (14.0-18.0); Mean Corpuscular Hemoglobin 35.1 pg (25-34); Mean Corpuscular Hgb Conc 34.2 g/dL (32-36); Mean Corpuscular Volume 102.6 fL (80-100); Mean Platelet Volume 8.3 fL (7.4-10.4); Platelet Count 418 K/uL (130-400); RDW Standard Deviation 52.9 fL (36.4-46.3); Red Blood Count 3.08 M/uL (4.7-6.1); White Blood Count 5.82 K/uL (4.8-10.8)
[2021-07-06] MEDS ORDERED: PROCHLORPERAZINE 2 ML IV ONE (04:10)
[2021-07-06] MEDS ORDERED: diphenhydrAMINE 50 MG/ML VIAL IV STA ×2 (04:10→22:02)
[2021-07-06 04:34] LABS: Troponin I < 0.03 ng/ml (0-0.04)
[2021-07-06 04:39] LABS: Influenza A virus by PCR Negative (Negative); Influenza B virus by PCR Negative (Negative)
[2021-07-06 05:16] LABS: Alanine Aminotransferase 16 U/L (7-52); Albumin Globulin Ratio 1.2 (0.9-2); Albumin Level 3.7 gm/dl (3.4-5.0); Alkaline Phosphatase 72 U/L (34-104); Anion Gap 11 (3-11); Aspartate Aminotransferase 34 U/L (13-39); BUN Creatinine Ratio 6.7 (10-20); Bilirubin,Total 0.9 mg/dl (0.2-1.0); Blood Urea Nitrogen 4 mg/dl (6-23); Calcium 8.5 mg/dl (8.5-10.1); Carbon Dioxide 29 mmol/L (21-32); Chloride 89 mmol/L (98-107); Est GFR (African American) 143.7 ml/min; Glucose 93 mg/dl (70-99(Fasting)); Lipase 6 U/L (11-82); Potassium 2.3 mmol/L (3.5-5.1); Sodium 129 mmol/L (136-145); Total Protein 6.7 gm/dl (6.0-8.3)
[2021-07-06] MEDS ORDERED: POTASSIUM CHLORIDE CRTAB 20 MEQ TABCR PO STA ×2 (05:24→19:20)
[2021-07-06 05:51] LABS: Basophils # (auto) 0.01 K/uL (0-0.2); Basophils % (auto) 0.2 %; Eosinophils # (auto) 0.07 K/uL (0-0.5); Eosinophils % (auto) 1.2 %; Immature Granulocytes # (auto) 0.01 K/uL (0.00-0.02); Immature Granulocytes % (auto) 0.2 %; Lymphocytes # (auto) 2.99 K/uL (1.2-3.4); Lymphocytes % (auto) 51.4 %; Monocytes # (auto) 0.43 K/uL (0.11-0.59); Monocytes % (auto) 7.4 %; Neutrophils # (auto) 2.31 K/uL (1.4-6.5); Neutrophils % (auto) 39.6 %
--- NOTE | 2021-07-06 06:33 | History & Physical Report ---
Date of Service July 06, 2021 Assessment & Plan (1) Hypokalemia: Plan: Hypokalemia, hyponatremia Secondary to emesis episode secondary to possible gastritis Atypical chest pain with shortness of breath rule out from embolism recurrent perirectal/perianal infection/history peritonitis suppurativa status post surgery, chronic wound improved as of recent outpatient wound care follow- up visit paranoid schizophrenia, stable on long-acting Rx chronic anemia secondary to thalassemia, hemoglobin at baseline ongoing tobacco abuse Med telemetry Replace potassium Initiate PPI CT abdomen pelvis CT chest angio rule out PE N.p.o. until CT results known Further management pending work-up results N.p.o. until CT results known Nicotine patch as needed DVT prophylaxis. Lovenox subcu Text document was generated using [employer] voice recognition software. It may contain grammatical or spelling errors. Kindly contact undersigned for clarification of any documentation item in question. History of Present Illness Chief Complaint: Abdominal pain, vomiting, chest pain shortness of breath Primary Care Provider: Kenneth Agrawal DO History obtained from patient and records. Medical history significant for paranoid schizophrenia, hiradenitis suppurativa/recurrent perirectal abscesses status post surgery, prediabetes as per records, chronic anemia secondary to thalassemia as per patient (baseline hemoglobin of 10), ongoing tobacco abuse. Last confinement April 2021 for gluteal abscess status post bedside I&D. Patient completed antibiotic course. 3 days history of burning epigastric discomfort followed by nausea and emesis. Abdominal pain going to the chest but chest pain might be separate as per patient. Shortness of breath without cough symptoms. No known recent sick contacts. No black/bloody stools. Denies hematemesis. Throat irritation as per patient. Patient consulted ER for worsening symptoms. Medical History as above Surgical History : Rectal abscess drainage Family History : Breast cancer, hyperlipidemia Personal/Social history : One pack daily, occasional EtOH intake, disabled Allergies Allergy/AdvReac Type Severity Reaction Status Date / Time Penicillins Allergy Severe Rash Verified 07/02/21 14:21 Home Medications Medication Instructions Recorded Confirmed Type paliperidone palmitate 117 mg/0.75 0 mg IM MONTHLY 10/23/19 05/17/21 History mL intramuscular syringe (Invega Sustenna) Past Med/Surg History Medical History Acute hypokalemia Anemia Cyst of face Depression Facial abscess Hidradenitis suppurativa Hypomagnesemia Hyponatremia Leukocytosis Paranoid schizophrenia Paranoid schizophrenia Perianal abscess Perirectal abscess Tobacco use disorder Surgical History History of incision and drainage Family History Other Cancer Denies family history of Schizophrenia Social History Smoking Status: Never smoker Tobacco Type: Cigarettes packs per day: 0.5; Cigarettes Per Day: 10; Second Hand Exposure: No; Do You Dip or Chew Tobacco: No; Tobacco Cessation Education Requested by Patient: No Hx Alcohol Use: No Hx Substance Use: No Preferred Language: Tunisian Communication Ability: Effective Visual Impairment: No Limitations Hearing Ability: Normal [employer]room [employer] Mixer Required: No Beliefs That Will Affect Care: None marital status: Single Current Living Situation: Parent Current Living Situation Comment: resides with mom and dad. current occupational status: disabled How many Children do You have: 0 Other Information That Helps Us Care for You: No Feels Safe at Home: Yes Safety Concerns: Feels Safe At This Time during the past year weight has: remained stable Assistive Devices: None Review of Systems Review of Systems: As per HPI, all 10 systems reviewed, all other ROS negative Physical Exam Physical Exam: GENERAL: Slightly uncomfortable, no respiratory distress, lying on the right lateral decubitus position SKIN: Pallor , warm HEENT: Alopecia, pale palpebral conjunctivae, no ptosis, dry buccal mucosa NECK : Supple, no tenderness CHEST : CTA, no tenderness HEART : RRR, no obvious murmurs ABDOMEN: Some distention, minimal epigastric tenderness EXTREMITIES : No LE swelling/tenderness, no other conspicuous deformities noted NEUROLOGIC : Coherent, no facial asymmetry, no other gross focality Results & Data Results & Data ([facility]) Vital Signs (Past 12 Hours) Vital Signs Temp Pulse Pulse Resp BP BP Pulse Ox 07/06/21 05:00 89 18 104/49 L 93 07/06/21 04:00 86 16 107/63 100 07/06/21 03:50 100 07/06/21 03:13 36.4 C L 102 H 20 109/75 99 Laboratory Results Laboratory Results WBC 5.82 K/uL (4.8-10.8) 07/06/21 03:54 RBC 3.08 M/uL (4.7-6.1) L 07/06/21 03:54 Hgb 10.8 g/dL (14.0-18.0) L 07/06/21 03:54 Hct 31.6 % (42-52) L 07/06/21 03:54 MCV 102.6 fL (80-100) H 07/06/21 03:54 MCH 35.1 pg (25-34) H 07/06/21 03:54 MCHC 34.2 g/dL (32-36) 07/06/21 03:54 RDW Std Deviation 52.9 fL (36.4-46.3) H 07/06/21 03:54 RDW Coeff of Fausto 14.0 % (11.5-14.5) 07/06/21 03:54 Plt Count 418 K/uL (130-400) H 07/06/21 03:54 MPV 8.3 fL (7.4-10.4) 07/06/21 03:54 Immature Gran % (Auto) 0.2 % 07/06/21 03:54 Neut % (Auto) 39.6 % 07/06/21 03:54 Lymph % (Auto) 51.4 % 07/06/21 03:54 [place] % (Auto) 7.4 % 07/06/21 03:54 Eos % (Auto) 1.2 % 07/06/21 03:54 Baso % (Auto) 0.2 % 07/06/21 03:54 Neut # (Auto) 2.31 K/uL (1.4-6.5) 07/06/21 03:54 Lymph # (Auto) 2.99 K/uL (1.2-3.4) 07/06/21 03:54 [place] # (Auto) 0.43 K/uL (0.11-0.59) 07/06/21 03:54 Eos # (Auto) 0.07 K/uL (0-0.5) 07/06/21 03:54 Baso # (Auto) 0.01 K/uL (0-0.2) 07/06/21 03:54 Immature Gran # (Auto) 0.01 K/uL (0.00-0.02) 07/06/21 03:54 Sodium 129 mmol/L (136-145) L 07/06/21 03:54 Potassium 2.3 mmol/L (3.5-5.1) L* 07/06/21 03:54 Chloride 89 mmol/L (98-107) L 07/06/21 03:54 Carbon Dioxide 29 mmol/L (21-32) 07/06/21 03:54 Anion Gap 11 (3-11) 07/06/21 03:54 BUN 4 mg/dl (6-23) L 07/06/21 03:54 Creatinine 0.60 mg/dl (0.6-1.4) 07/06/21 03:54 Est Cr Clr Drug Dosing 176.0 ml/min 07/06/21 03:54 Est GFR ( Amer) 143.7 ml/min 07/06/21 03:54 Est GFR (Non-Af Amer) 124.0 ml/min 07/06/21 03:54 BUN/Creatinine Ratio 6.7 (10-20) L 07/06/21 03:54 Glucose 93 mg/dl (70-99(Fasting)) 07/06/21 03:54 Calcium 8.5 mg/dl (8.5-10.1) 07/06/21 03:54 Magnesium 1.5 mg/dl (1.7-2.4) L 07/06/21 03:54 Total Bilirubin 0.9 mg/dl (0.2-1.0) 07/06/21 03:54 AST 34 U/L (13-39) 07/06/21 03:54 ALT 16 U/L (7-52) 07/06/21 03:54 Alkaline Phosphatase 72 U/L (34-104) 07/06/21 03:54 Troponin I < 0.03 ng/ml (0-0.04) 07/06/21 03:54 Total Protein 6.7 gm/dl (6.0-8.3) 07/06/21 03:54 Albumin 3.7 gm/dl (3.4-5.0) 07/06/21 03:54 Globulin 3.0 gm/dl (2.5-4.0) 07/06/21 03:54 Albumin/Globulin Ratio 1.2 (0.9-2) 07/06/21 03:54 Lipase 6 U/L (11-82) L 07/06/21 03:54 Procalcitonin < 0.05 ng/ml (0-0.5) 07/06/21 03:54 Influ A Molecular Assay Negative (Negative) 07/06/21 03:54 Influ B Molecular Assay Negative (Negative) 07/06/21 03:54 SARS-CoV-2, RNA, NAAT NEGATIVE (NEGATIVE) 07/06/21 03:54 Diagnostic Findings Chest x-ray as per my interpretation: No congestion EKG as per my interpretation : Rate 85, NSR, normal axis, T wave abnormalities septal leads, LAE
[2021-07-06 06:38] LABS: Partial Thromboplastin Ratio 1.1; Partial Thromboplastin Time 29.6 Seconds (21.0-31.0)
[2021-07-06] MEDS ORDERED: NSS + 20MEQ KCL 20 MEQ/1,000 ML BAG IV ONE (06:45)
[2021-07-06] MEDS ORDERED: POTASSIUM CHLORIDE CRTAB 20 MEQ TABCR PO ONE ×2 (07:00→08:30)
[2021-07-06] MEDS: MAGNESIUM SULFATE / D5W 1 GM/100 ML BAG IV SCH ×2 (07:15→08:00)
--- NOTE | 2021-07-06 07:35 | XRay Report ---
XR chest 1V portable CLINICAL HISTORY: sob. COMPARISON STUDY: 06/22/2019 TECHNIQUE: 1 view of the chest FINDINGS: Single frontal view of the chest demonstrates the cardiomediastinal silhouette to be within normal li mits. The lungs are clear of alveolar opacities. There is no evidence for pleural effusion. There is no evidence for vascular congestion. There is no acute osseous pathology. IMPRESSION: 1. No acute cardiopulmonary disease. ACT 112: Negative or not required by law. Electronically signed by: Norbert Humphries M.D. 07/06/2021 7:34 AM
[2021-07-06] MEDS ORDERED: oxyCODONE HCL IR 5 MG TAB (IMMEDIATE RELEASE) PO PRN (07:46)
[2021-07-06] MEDS ORDERED: ACETAMINOPHEN 325 MG TAB PO PRN (07:46)
[2021-07-06] MEDS ORDERED: PROMETHAZINE HCL 6.25 MG in SODIUM CHLORIDE 0.9% 50 ML IV PRN (07:46)
[2021-07-06] MEDS ORDERED: OPTIRAY 320 125ml IV ONE (08:12)
--- NOTE | 2021-07-06 08:31 | CT Scan Report ---
CT ANGIOGRAM OF THE CHEST CLINICAL HISTORY: Dyspnea. Vomiting. COMPARISON STUDY: Chest x-ray dated 07/06/2021. TECHNIQUE: Following the IV administration of 120 cc of Optiray 320, CT angiogram of the chest was pe rformed from the upper abdomen to the thoracic inlet utilizing the pulmonary embolus protocol. Images are reviewed in the axial, sagittal, and coronal planes. 3-D MIPS images are created and assessed. I V contrast was administered without complication. A dose lowering technique was utilized adhering to the principles of ALARA. CT DOSE: 605.09 mGy.cm FINDINGS: Thyroid: Imaged portions of the thyroid gland are normal in size and attenuation. Thoracic aorta: The thoracic aorta is normal in caliber and demonstrates 4-vessel variant arch anatom y. No dissection is seen. Pulmonary vasculature: The pulmonary trunk is normal in caliber. There are no filling defects identif ied in main, lobar, or proximal segmental pulmonary branches to suggest pulmonary embolus. Evaluation of the segmental and subsegmental branches is degraded by suboptimal contrast opacification. Heart: The heart is normal in size noting a small pericardial effusion. Lungs and pleural spaces: Mild emphysematous change is noted. The trachea is clear. Secretions are no esteban in the right mainstem bronchus. There is airspace consolidation typical for pneumonia or pleural effusion. Subpleural scarring/atelectasis is noted throughout the right lung. Mediastinum: There is no mediastinal lymphadenopathy. Lanie: Clear. Axillae: There is no axillary lymphadenopathy. Upper abdomen: There is a small hiatal hernia. Partially visualized upper abdominal viscera is within normal limits. Skeletal structures: No lytic or blastic bony lesions are seen. IMPRESSION: 1. There is no evidence of pulmonary embolus in the main, lobar, or proximal segmental pulmonary maurizio hilda. 2. There is no airspace consolidation typical for pneumonia or pleural effusion. 3. Mild emphysema. 4. Additional findings as above. ACT 112: Negative or not required by law. Electronically signed by: Rico Bruce M.D. 07/06/2021 8:30 AM
--- NOTE | 2021-07-06 08:37 | CT Scan Report ---
CT abd pelvis IV con only CLINICAL HISTORY: abd pain TECHNIQUE: Helical axial images of the abdomen and pelvis were obtained and displayed. Automated dose lowering techniques and/or adjustment according to patient size were utilized for this exam. This e xam was performed with intravenous contrast. COMPARISON: Comparison is made to CT pelvis 05/17/2021 FINDINGS: Lower chest: Atelectasis is seen in the right lung base. Liver: Unremarkable. No focal lesions are seen. Gallbladder and biliary tree: Cholelithiasis is seen without evidence of cholecystitis. No intra- or extrahepatic biliary ductal dilation. Pancreas: Unremarkable, no focal lesions. Spleen: Unremarkable. Adrenals: Unremarkable. Kidneys and ureters: Unremarkable. Bladder: Gaseous distention of the sigmoid colon is seen. A hiatal hernia is seen. Reproductive organs: Unremarkable. Bowel: Unremarkable. Lymph nodes Retroperitoneal: Unremarkable. Mesenteric: Unremarkable. Pelvic: Subcentimeter lymph nodes are noted. Peritoneum: Normal. Vessels: Atherosclerotic calcifications are seen. Abdominal wall: A fat-containing umbilical hernia is seen. Bones: Unremarkable. IMPRESSION: No acute abnormalities. In particular, no evidence of bowel obstruction. ACT 112: Negative or not required by law. Electronically signed by: Jhonny Trujillo M.D. 07/06/2021 8:35 AM
[2021-07-06] MEDS: PANTOprazole 40 MG TAB PO SCH (08:55)
[2021-07-06] MEDS: ENOXAPARIN INJ 30 MG/0.3 ML SYR SQ SCH (08:55)
[2021-07-06 09:44] LABS: Appearance Urine Clear (Clear); Bilirubin Urine Negative (Negative); Blood Urine Negative (Negative); Color Urine Yellow; Glucose Urine UA Negative (Negative); Ketones Urine Negative (Negative); Leukocyte Esterase Urine Negative (Negative); Nitrite Urine Negative (Negative); Protein Urine Negative (Negative); Specific Gravity Urine 1.003 (1.000-1.030); Urobilinogen Urine Negative (Negative)
[2021-07-06] MEDS ORDERED: CALCIUM CARBONATE 500 MG CHEWABLE TAB PO PRN (09:48)
[2021-07-06 12:25] LABS: BUN Creatinine Ratio 6.3 (10-20); Calcium 8.1 mg/dl (8.5-10.1); Creatinine Clr Calc Pharmacy 167.7 ml/min; Est GFR (African American) 140.9 ml/min; Est GFR (Non-African American) 121.5 ml/min; Potassium 3.1 mmol/L (3.5-5.1)
--- NOTE | 2021-07-06 14:31 | Communication Note ---
Date of Service: July 06, 2021 Patient admitted today for nausea/vomiting/epigastric pain. CT chest/abd/pelvis unremarkable. Labwork shows hypokalemia, hypochloridemia, hyponatremia, low serum osmolality. Labwork also shows chronic macrocytic anemia which is unchanged from previous. Patient's electrolytes already replenished. Repeat BMP tomorrow Patient ordered PPI, tums PRN for his symptoms. Notified by RN that BP is low. Reviewed MAR--he only received 1 LNSS so far. Will give another 1 L NSS bolus then maintain on 100 cc/hr for hypovolemia. Procalcitonin negative, no leukocytosis, no fever. Doubt hypotension is from sepsis. Remaining Assessment and Plan per H&P by Dr Herrera from this morning
[2021-07-06] MEDS: SODIUM CHLORIDE 0.9% 500 ML IV SCH ×2 (15:37→19:40)
[2021-07-06] MEDS ORDERED: VANCOMYCIN CONSULT ACTIVE PRN (17:25)
[2021-07-06] MEDS ORDERED: VANCOMYCIN HCL 1,750 MG in SODIUM CHLORIDE 0.9% 500 ML IV STA (18:10)
[2021-07-06] MEDS ORDERED: CEFEPIME 2,000 MG/20 ML VIAL ONE (21:31)
[2021-07-06] MEDS ORDERED: CEFEPIME 2,000 MG in SYRINGE 0 ML IV SCH (22:00)
[2021-07-06] MEDS ORDERED: CEFEPIME 1,000 MG in SYRINGE 0 ML IV SCH (22:00)
--- NOTE | 2021-07-06 22:04 | Communication Note ---
Date of Service: July 06, 2021 Overnight developments : Patient refusing antibiotics after lip swelling develop during cefepime infusion. Improved lip swelling after Benadryl administration. SBP noted to be 70s at the floor despite IVF administration. Patient with some dizziness as per RN. Lactic acid within normal limits. AP Hypotension Rule out obstructive cardiac pathology TTE Midodrine for now Will relay to AM provider.
--- NOTE | 2021-07-06 22:38 | Electrocardiogram Report ---
Test Reason : Blood Pressure : / mmHG Vent. Rate : 086 BPM Atrial Rate : 086 BPM P-R Int : 160 ms QRS Dur : 106 ms QT Int : 418 ms P-R-T Axes : 050 069 056 degrees QTc Int : 500 ms Normal sinus rhythm Possible Left atrial enlargement Prolonged QT Abnormal ECG When compared with ECG of 05-NOV-2020 16:48, T wave inversion now evident in Anterior leads QT has shortened Confirmed by Richar Curiel ([id number]) on 07/06/2021 10:38:05 PM Referred By: REFERRED SELF Confirmed By:Richar Curiel
[2021-07-07] MEDS ORDERED: MIDODRINE HCL 2.5 MG TAB PO SCH (03:45)
[2021-07-07] MEDS: MIDODRINE HCL 2.5 MG TAB PO SCH ×3 (04:18→15:54)
[2021-07-07] MEDS: SODIUM CHLORIDE 0.9% 500 ML IV SCH ×2 (05:19→07:31)
[2021-07-07] MEDS ORDERED: Nursing to Pharmacy Communication SCH (07:30)
[2021-07-07] MEDS: VANCOMYCIN HCL 1,250 MG in SODIUM CHLORIDE 0.9% 250 ML IV SCH ×2 (07:37→19:35)
[2021-07-07 07:57] LABS: Basophils # (auto) 0.01 K/uL (0-0.2); Basophils % (auto) 0.2 %; Eosinophils # (auto) 0.04 K/uL (0-0.5); Eosinophils % (auto) 0.7 %; Hematocrit (blood only) 26.6 % (42-52); Hemoglobin 8.6 g/dL (14.0-18.0); Immature Granulocytes # (auto) 0.01 K/uL (0.00-0.02); Immature Granulocytes % (auto) 0.2 %; Lymphocytes # (auto) 2.02 K/uL (1.2-3.4); Lymphocytes % (auto) 35.8 %; Mean Corpuscular Hemoglobin 34.8 pg (25-34); Mean Corpuscular Hgb Conc 32.3 g/dL (32-36); Mean Corpuscular Volume 107.7 fL (80-100); Mean Platelet Volume 8.5 fL (7.4-10.4); Monocytes # (auto) 0.35 K/uL (0.11-0.59); Monocytes % (auto) 6.2 %; Neutrophils # (auto) 3.22 K/uL (1.4-6.5); Neutrophils % (auto) 56.9 %; Platelet Count 282 K/uL (130-400); RDW Coefficient of Variation 14.6 % (11.5-14.5); RDW Standard Deviation 57.8 fL (36.4-46.3); Red Blood Count 2.47 M/uL (4.7-6.1); White Blood Count 5.65 K/uL (4.8-10.8)
[2021-07-07] MEDS: SODIUM CHLORIDE 0.9% 1000ML 1,000 ML IV SCH ×2 (08:31→17:31)
[2021-07-07 08:38] LABS: Anion Gap 3 (3-11); Blood Urea Nitrogen 3 mg/dl (6-23); Calcium 7.6 mg/dl (8.5-10.1); Carbon Dioxide 25 mmol/L (21-32); Chloride 109 mmol/L (98-107); Creatinine Clr Calc Pharmacy 211.2 ml/min; Est GFR (African American) > 150.0 ml/min; Est GFR (Non-African American) 133.7 ml/min; Glucose 74 mg/dl (70-99(Fasting)); Magnesium 1.8 mg/dl (1.7-2.4); Sodium 137 mmol/L (136-145)
[2021-07-07] MEDS: PANTOprazole 40 MG TAB PO SCH (09:49)
[2021-07-07] MEDS: ENOXAPARIN INJ 30 MG/0.3 ML SYR SQ SCH (09:49)
--- NOTE | 2021-07-07 12:15 | Pharmacy Report ---
Pharmacy Vanc AUC Short Note - Date of Service July 07, 2021 - Assessment & Plan Assessment 41 year old M receiving Vancomcyin for treatment of Cellulitis/Perirectal infection. Blood cultures are pending. Pt has history of perirectal abcess (alpha strep, bacteroides pyogenes) Plan Vancomycin * AUC/ALBER is the preferred PK/PD target for vancomycin * AUC guided dosing is effective and associated with decreased risk of nephrotoxicity compared to traditional trough targets * Vancomycin 1750mg x 1 then Vancomcyin 1250mg IV Q12H is predicted to achieve target AUC/ALBER of 400-600 mg/L.hr and may be associated with a 8 % risk of nephrotoxicity * Trough or random level ordered for: 07/08/21 @ 4729 Pharmacy will continue to follow and will adjust dose/frequency as necessary. Thank you.
--- NOTE | 2021-07-07 15:00 | Hospitalist Progress Note ---
Date of Service July 07, 2021 Assessment & Plan (1) Hypokalemia: Plan: Hypokalemia, hyponatremia Secondary to emesis episode secondary to possible gastritis Atypical chest pain with shortness of breath rule out from embolism recurrent perirectal/perianal infection/history peritonitis suppurativa status post surgery, chronic wound improved as of recent outpatient wound care follow- up visit paranoid schizophrenia, stable on long-acting Rx chronic anemia secondary to thalassemia, hemoglobin at baseline ongoing tobacco abuse Med telemetry Replace potassium Initiate PPI CT abdomen pelvis CT chest angio rule out PE N.p.o. until CT results known Further management pending work-up results N.p.o. until CT results known Nicotine patch as needed DVT prophylaxis. Lovenox subcu Text document was generated using [employer] voice recognition software. It may contain grammatical or spelling errors. Kindly contact undersigned for clarification of any documentation item in question. Admission and Anticipated Discharge Date Admission Date: July 06, 2021 Results & Data Results & Data ([facility]) Vital Signs (Past 12 Hours) Vital Signs Temp Pulse Pulse Resp BP BP Pulse Ox 07/07/21 11:51 36.9 C 85 20 99/62 L 97 07/07/21 08:10 36.7 C 76 20 92/54 L 94 07/07/21 07:27 73 07/07/21 03:59 83 98/62 L 96 07/07/21 03:28 37.0 C 82 18 76/40 L 98
--- NOTE | 2021-07-07 16:18 | Hospitalist Progress Note ---
Date of Service July 07, 2021 Assessment & Plan (1) Hypotension: Plan: Hypotension- unclear etiology but asymptomatic. CT chest abdomen pelvis reviewed- No clear evidence of infection/sepsis, WBC normal, cortisol normal. Improved with iv fluids and started on midodrine overnight. TTE pending. Patient was on empiric cefepime/vancomycin but had allergic reaction to cefepime with lip swelling and discontinued. Currently on vancomycin. Will have low threshold for discontinuation with close monitoring. Hypokalemia- resolved Hyponatremia- resolved Paranoid schizophrenia- stable, on long acting treatment Ongoing tobacco abuse- Cessation recommended, nicotine patch prn chronic anemia secondary to thalassemia- Hb at baseline DVT prophylaxis- sc lovenox Admission and Anticipated Discharge Date Admission Date: July 06, 2021 Subjective Patient was seen and examined at bedside. Denies any issues. Denies any lightheadedness or dizziness. Appetite improving. Denies any fever or chills. Denies any chest pain or shortness of breath. States he had abscess in the past which is resolved. Physical Exam Physical Exam: GENERAL: Alert and oriented x3. NAD, on RA. HEENT: No pallor, no icteru s. Pupils equal, round and reactive to light. Oral m ucosa moist. NECK: No JVD, no neck masses. HEART: S1 and S2 heard. Re gular rate and rhy thm. No murmur, n o gallop. RESPIRAT ORY SYSTEM: Val l AP diameter. No accessory muscle use. No wheezing, no crackles. ABDO MEN: Soft, bowel sounds present, no ntender, no disten tion. CENTRAL NERV OUS SYSTEM: No fa cial droop. Speec h is clear. Obeys commands. Moves extremities. EXTRE MITIES: No edema, no erythema seen. Results & Data Results & Data ([facility]) Vital Signs (Past 12 Hours) Vital Signs Temp Pulse Pulse Resp BP BP Pulse Ox 07/07/21 15:58 36.3 C L 84 18 113/68 95 07/07/21 14:59 85 07/07/21 11:51 36.9 C 85 20 99/62 L 97 07/07/21 08:10 36.7 C 76 20 92/54 L 94 07/07/21 07:27 73 Laboratory Results Short CBC 07/07/21 Range/Units 07:24 WBC 5.65 (4.8-10.8) K/uL Hgb 8.6 L (14.0-18.0) g/dL Hct 26.6 L (42-52) % Plt Count 282 (130-400) K/uL [facility] 07/07/21 07:24 Sodium 137 Potassium 4.0 D Chloride 109 H Carbon Dioxide 25 BUN 3 L Creatinine 0.50 L Glucose 74 Calcium 7.6 L Diagnostic Findings Reviewed. Medications Administered Current Inpatient Medications Acetaminophen (Acetaminophen 325 Mg Tab) 650 mg PO Q4H PRN PRN Reason: Pain or Fever Stop: 08/05/21 07:45 Calcium Carbonate (Calcium Carbonate 500 Mg Chewable Tab) 500 mg PO 3XDQ4 PRN PRN Reason: Indigestion Stop: 08/05/21 09:47 Last Admin: 07/06/21 09:59 Dose: 500 mg Documented by: Enoxaparin Sodium (Enoxaparin Inj 30 Mg/0.3 Ml Syr) 30 mg SQ QAM [facility] Stop: 08/05/21 08:59 Last Admin: 07/07/21 09:49 Dose: 30 mg Documented by: Promethazine HCl 6.25 mg/ (Sodium Chloride) 50.25 mls @ 201 mls/hr IV Q6H PRN PRN Reason: Nausea And Vomiting Stop: 08/05/21 07:45 Vancomycin HCl 1,250 mg/ (Sodium Chloride) 275 mls @ 200 mls/hr IV Q12H [facility]; Protocol Stop: 07/14/21 07:59 Last Infusion: 07/07/21 09:01 Dose: Infused Documented by: Sodium Chloride (Nss 1000ml) 1,000 mls @ 100 mls/hr IV .Q10H [facility] Stop: 08/05/21 14:29 Last Admin: 07/07/21 08:31 Dose: 100 mls/hr Documented by: Midodrine (Midodrine Hcl 2.5 Mg Tab) 2.5 mg PO TID@0800,1200,1700 [facility] Stop: 08/06/21 03:44 Last Admin: 07/07/21 15:54 Dose: 2.5 mg Documented by: Miscellaneous Information (Vancomycin Consult Active) 0 ea N/A UD PRN PRN Reason: Consult Stop: 08/05/21 17:24 Oxycodone HCl (Oxycodone Hcl Ir 5 Mg Tab (Immediate Release)) 5 mg PO Q4H PRN PRN Reason: Pain Stop: 07/20/21 07:45 Pantoprazole Sodium (Pantoprazole 40 Mg Tab) 40 mg PO DAILY [facility] Stop: 08/05/21 08:59 Last Admin: 07/07/21 09:49 Dose: 40 mg Documented by:
[2021-07-08] MEDS: SODIUM CHLORIDE 0.9% 1000ML 1,000 ML IV SCH ×3 (02:55→16:00)
[2021-07-08] MEDS ORDERED: VANCOMYCIN TROUGH ONE ×2 (07:30)
[2021-07-08 07:32] LABS: Hematocrit (blood only) 28.4 % (42-52); Hemoglobin 9.2 g/dL (14.0-18.0); Mean Corpuscular Hgb Conc 32.4 g/dL (32-36); Mean Platelet Volume 8.2 fL (7.4-10.4); Platelet Count 243 K/uL (130-400); RDW Coefficient of Variation 14.6 % (11.5-14.5); RDW Standard Deviation 58.1 fL (36.4-46.3); Red Blood Count 2.63 M/uL (4.7-6.1); White Blood Count 5.35 K/uL (4.8-10.8)
[2021-07-08 07:56] LABS: Anion Gap 2 (3-11); Blood Urea Nitrogen 3 mg/dl (6-23); Calcium 7.7 mg/dl (8.5-10.1); Carbon Dioxide 27 mmol/L (21-32); Chloride 108 mmol/L (98-107); Creatinine Clr Calc Pharmacy 211.2 ml/min; Est GFR (African American) > 150.0 ml/min; Est GFR (Non-African American) 133.7 ml/min; Glucose 95 mg/dl (70-99(Fasting)); Magnesium 1.6 mg/dl (1.7-2.4); Phosphorus 1.9 mg/dl (2.5-4.9); Potassium 3.8 mmol/L (3.5-5.1); Sodium 137 mmol/L (136-145)
[2021-07-08 08:00] LABS: Basophils # (auto) 0.01 K/uL (0-0.2); Basophils % (auto) 0.2 %; Eosinophils # (auto) 0.09 K/uL (0-0.5); Eosinophils % (auto) 1.7 %; Immature Granulocytes # (auto) 0.01 K/uL (0.00-0.02); Immature Granulocytes % (auto) 0.2 %; Lymphocytes # (auto) 2.68 K/uL (1.2-3.4); Lymphocytes % (auto) 50.1 %; Monocytes # (auto) 0.35 K/uL (0.11-0.59); Monocytes % (auto) 6.5 %; Neutrophils # (auto) 2.21 K/uL (1.4-6.5); Neutrophils % (auto) 41.3 %
[2021-07-08] MEDS: VANCOMYCIN HCL 1,250 MG in SODIUM CHLORIDE 0.9% 250 ML IV SCH ×2 (08:38→20:49)
[2021-07-08] MEDS: MIDODRINE HCL 2.5 MG TAB PO SCH ×3 (08:39→16:20)
--- NOTE | 2021-07-08 09:10 | Pharmacy Report ---
Pharmacy Vanc AUC Short Note - Date of Service July 08, 2021 - Assessment & Plan Assessment 41 year old M receiving Vancomycin for treatment of Cellulitis/Paige-rectal abcess. Blood cultures are pending. Pt is afebrile. Renal function is stable. Plan Vancomycin * Trough level of 11.4 mcg/mL on * Continue dose of 1250 mg IV every 12 hours. This dose is predicted to achieve target AUC/ALBER of 400-600 mg/L.hr and may be associated with a 8% risk of nephrotoxicity Pharmacy will continue to follow and will adjust dose/frequency as necessary. Thank you.
[2021-07-08] MEDS: PANTOprazole 40 MG TAB PO SCH (09:33)
[2021-07-08] MEDS: ENOXAPARIN INJ 30 MG/0.3 ML SYR SQ SCH (09:33)
--- NOTE | 2021-07-08 12:59 | Hospitalist Progress Note ---
Date of Service July 08, 2021 Assessment & Plan (1) Hypotension: Plan: Hypotension- unclear etiology but asymptomatic and improved. CT chest abdomen pelvis reviewed- No clear evidence of infection/sepsis, WBC normal, cortisol normal. TTE unremarkable. BP Improved with iv fluids and midodrine. Orthostatic pending. On empiric vancomycin. Will have low threshold for discontinuation with close monitoring. Hypophosphatemia- repleted, recheck in am Hypomagnesemia- repleted, recheck in am Paranoid schizophrenia- stable, on long acting treatment Ongoing tobacco abuse- Cessation recommended, nicotine patch prn chronic anemia secondary to thalassemia- Hb at baseline DVT prophylaxis- sc lovenox Dispo: Anticipate likely discharge tomorrow if remains stable. States he has been ambulating without issues. Update: Left VM for his dad to call back Admission and Anticipated Discharge Date Admission Date: July 06, 2021 Subjective Patient seen and examined. Denies any active issues. Appetite improved. No nausea, vomiting, fever or chills. Ambulating to the bathroom without issues. No dizziness. He states he plans to go to [place] over the weekend for few days with his dad and asking when he will be discharged. Physical Exam Physical Exam: General: Lying comfortably in bed, not in distress, on room air HEENT: EOMI, MELANIA, MMM Chest: Clear breath sounds bilaterally, no wheezes or crackles CVS: Regular rate and rhythm, normal heart sounds, no murmur Abdomen: Soft, non tender, not distended, normal bowel sounds Neuro: Awake, alert, oriented, conversing well, non focal Extremities: No cyanosis, clubbing or edema Psych: Calm, cooperative Results & Data Results & Data ([facility]) Vital Signs (Past 12 Hours) Vital Signs Temp Pulse Pulse Resp BP BP Pulse Ox 07/08/21 10:57 36.5 C 79 12 98 07/08/21 08:11 82 07/08/21 07:46 36.7 C 77 16 95/57 L 96 07/08/21 03:34 36.5 C 78 18 118/74 98 Laboratory Results Short CBC 07/08/21 Range/Units 07:12 WBC 5.35 (4.8-10.8) K/uL Hgb 9.2 L (14.0-18.0) g/dL Hct 28.4 L (42-52) % Plt Count 243 (130-400) K/uL BMP 07/08/21 07:12 Sodium 137 Potassium 3.8 Chloride 108 H Carbon Dioxide 27 BUN 3 L Creatinine 0.50 L Glucose 95 Calcium 7.7 L Diagnostic Findings Reviewed Medications Administered Calcium Carbonate (Calcium Carbonate 500 Mg Chewable Tab) 500 mg PO 3XDQ4 PRN PRN Reason: Indigestion Stop: 08/05/21 09:47 Last Admin: 07/06/21 09:59 Dose: 500 mg Documented by: [id number] Enoxaparin Sodium (Enoxaparin Inj 30 Mg/0.3 Ml Syr) 30 mg SQ QAM [facility] Stop: 08/05/21 08:59 Last Admin: 07/08/21 09:33 Dose: 30 mg Documented by: [id number] Admin: 07/07/21 09:49 Dose: 30 mg Documented by: [id number] Admin: 07/06/21 08:55 Dose: 30 mg Documented by: [id number] Vancomycin HCl 1,250 mg/ (Sodium Chloride) 275 mls @ 200 mls/hr IV Q12H [facility]; Protocol Stop: 07/14/21 07:59 Last Infusion: 07/08/21 10:30 Dose: 0 mls/hr Documented by: [id number] Admin: 07/08/21 08:38 Dose: 200 mls/hr Documented by: [id number] Infusion: 07/07/21 21:29 Dose: 0 mls/hr Documented by: [id number] Admin: 07/07/21 19:35 Dose: 200 mls/hr Documented by: [id number] Infusion: 07/07/21 09:01 Dose: 0 mls/hr Documented by: [id number] Admin: 07/07/21 07:37 Dose: 200 mls/hr Documented by: [id number] Sodium Chloride (Nss 1000ml) 1,000 mls @ 100 mls/hr IV .Q10H [facility] Stop: 08/05/21 14:29 Last Admin: 07/08/21 02:55 Dose: 100 mls/hr Documented by: [id number] Infusion: 07/08/21 02:53 Dose: 0 mls/hr Documented by: [id number] Admin: 07/07/21 17:31 Dose: 100 mls/hr Documented by: [id number] Infusion: 07/07/21 17:31 Dose: 100 mls/hr Documented by: [id number] Admin: 07/07/21 08:31 Dose: 100 mls/hr Documented by: [id number] Midodrine (Midodrine Hcl 2.5 Mg Tab) 2.5 mg PO TID@0800,1200,1700 [facility] Stop: 08/06/21 03:44 Last Admin: 07/08/21 12:21 Dose: 2.5 mg Documented by: [id number] Admin: 07/08/21 08:39 Dose: 2.5 mg Documented by: [id number] Admin: 07/07/21 15:54 Dose: 2.5 mg Documented by: [id number] Admin: 07/07/21 11:28 Dose: 2.5 mg Documented by: [id number] Admin: 07/07/21 04:18 Dose: 2.5 mg Documented by: [id number] Pantoprazole Sodium (Pantoprazole 40 Mg Tab) 40 mg PO DAILY [facility] Stop: 08/05/21 08:59 Last Admin: 07/08/21 09:33 Dose: 40 mg Documented by: [id number] Admin: 07/07/21 09:49 Dose: 40 mg Documented by: [id number] Admin: 07/06/21 08:55 Dose: 40 mg Documented by: [id number]
[2021-07-08] MEDS: MAGNESIUM SULFATE / D5W 1 GM/100 ML BAG IV SCH ×2 (13:03→15:11)
[2021-07-08] MEDS: POT PHOSPHATE MONOBASIC W/ SOD TAB PO SCH ×3 (13:48→20:49)
[2021-07-08] MEDS ORDERED: diphenhydrAMINE Capsule 25 MG CAP PO ONE (21:17)
[2021-07-09] MEDS: SODIUM CHLORIDE 0.9% 1000ML 1,000 ML IV SCH (05:10)
[2021-07-09 06:14] LABS: Eosinophils # (auto) 0.06 K/uL (0-0.5); Eosinophils % (auto) 0.8 %; Hematocrit (blood only) 29.9 % (42-52); Hemoglobin 9.7 g/dL (14.0-18.0); Lymphocytes # (auto) 2.96 K/uL (1.2-3.4); Lymphocytes % (auto) 41.7 %; Mean Corpuscular Hemoglobin 34.8 pg (25-34); Mean Corpuscular Hgb Conc 32.4 g/dL (32-36); Mean Corpuscular Volume 107.2 fL (80-100); Mean Platelet Volume 8.6 fL (7.4-10.4); Neutrophils # (auto) 3.58 K/uL (1.4-6.5); Neutrophils % (auto) 50.5 %; Platelet Count 345 K/uL (130-400); RDW Coefficient of Variation 14.3 % (11.5-14.5); RDW Standard Deviation 56.6 fL (36.4-46.3); Red Blood Count 2.79 M/uL (4.7-6.1)
[2021-07-09 06:39] LABS: Anion Gap 4 (3-11); BUN Creatinine Ratio 5.7 (10-20); Blood Urea Nitrogen 3 mg/dl (6-23); Carbon Dioxide 27 mmol/L (21-32); Chloride 107 mmol/L (98-107); Creatinine Clr Calc Pharmacy 199.3 ml/min; Est GFR (African American) > 150.0 ml/min; Est GFR (Non-African American) 130.5 ml/min; Glucose 82 mg/dl (70-99(Fasting)); Magnesium 1.6 mg/dl (1.7-2.4); Phosphorus 2.9 mg/dl (2.5-4.9); Potassium 3.8 mmol/L (3.5-5.1); Sodium 138 mmol/L (136-145)
[2021-07-09] MEDS: VANCOMYCIN HCL 1,250 MG in SODIUM CHLORIDE 0.9% 250 ML IV SCH (08:24)
[2021-07-09] MEDS: ENOXAPARIN INJ 30 MG/0.3 ML SYR SQ SCH (08:24)
[2021-07-09] MEDS: MIDODRINE HCL 2.5 MG TAB PO SCH ×2 (08:24→11:38)
[2021-07-09] MEDS: PANTOprazole 40 MG TAB PO SCH (08:25)
[2021-07-09] MEDS: POT PHOSPHATE MONOBASIC W/ SOD TAB PO SCH (08:25)
[2021-07-09] MEDS: MAGNESIUM SULFATE / D5W 1 GM/100 ML BAG IV SCH ×2 (09:29→11:35)
--- NOTE | 2021-07-09 11:37 | Discharge Summary ---
Date of Service July 09, 2021 Admission HPI Per Admitting Provider Chief Complaint: Abdominal pain, vomiting, chest pain shortness of breath Primary Care Provider: Kenneth Agrawal DO History obtained from patient and records. Medical history significant for paranoid schizophrenia, hiradenitis suppurativa/recurrent perirectal abscesses status post surgery, prediabetes as per records, chronic anemia secondary to thalassemia as per patient (baseline hemoglobin of 10), ongoing tobacco abuse. Last confinement April 2021 for gluteal abscess status post bedside I&D. Patient completed antibiotic course. 3 days history of burning epigastric discomfort followed by nausea and emesis. Abdominal pain going to the chest but chest pain might be separate as per patient. Shortness of breath without cough symptoms. No known recent sick contacts. No black/bloody stools. Denies hematemesis. Throat irritation as per patient. Patient consulted ER for worsening symptoms. Admission Exam Per Admitting Provider GENERAL: Slightly uncomfortable, no respiratory distress, lying on the right lateral decubitus position SKIN: Pallor , warm HEENT: Alopecia, pale palpebral conjunctivae, no ptosis, dry buccal mucosa NECK : Supple, no tenderness CHEST : CTA, no tenderness HEART : RRR, no obvious murmurs ABDOMEN: Some distention, minimal epigastric tenderness EXTREMITIES : No LE swelling/tenderness, no other conspicuous deformities noted NEUROLOGIC : Coherent, no facial asymmetry, no other gross focality Principal Diagnosis Hypotension, Nausea/vomiting- possible gastroenteritis Discharge Exam General: Lying comfortably in bed, not in distress, on room air HEENT: EOMI, MELANIA, MMM Chest: Clear breath sounds bilaterally, no wheezes or crackles CVS: Regular rate and rhythm, normal heart sounds, no murmur Abdomen: Soft, non tender, not distended, normal bowel sounds Neuro: Awake, alert, oriented, conversing well, non focal Extremities: No cyanosis, clubbing or edema Psych: Calm, cooperative Discharge Data Allergies Allergy/AdvReac Type Severity Reaction Status Date / Time Penicillins Allergy Severe Rash Verified 07/02/21 14:21 cefepime Allergy Intermediate lip Verified 07/06/21 22:03 swelling Consultations 07/06/21 06:08 ED Decision to Admit Stat Ordered Studies 07/06/21 06:33 CT abd pelvis IV con only Urgent CT angio chest PE protocol Urgent Hospital Course (1) Hypotension: Hypotension- unclear etiology but possibly volume depletion from vomiting and poor oral intake, however asymptomatic and improved. CT chest abdomen pelvis reviewed- No clear evidence of infection/sepsis, WBC normal, cortisol normal. TTE unremarkable. BP Improved with iv fluids and midodrine. Patient was also on empiric vancomycin given history of recurrent perirectal/perianal infection- giving 3 more days of doxy at discharge as unable to completely rule out infection as a cause of hypotension, although low possibility. Hypophosphatemia- resolved with repletion Hypomagnesemia- repleted iv prior to discharge Paranoid schizophrenia- stable, on long acting treatment Ongoing tobacco abuse- Cessation recommended, follow up with PCP chronic anemia secondary to thalassemia- Hb at baseline Reviewed discharge plan with the patient. Updated dad over the phone yesterday. He is comfortable and stable for discharge. He has been ambulating around without any issues. Total Time Total Time Spent Total Time Spent (In Minutes): 35 Discharge Plan Discharge Items Patient Disposition: Home - Self-Care Reason For Visit: CP, SOB, HYPOKALEMIA Discharge Diagnosis: Hypotension Activity: Resume your previous activity Non-emergency contact: Primary Care Provider Call non-emergency contact if: you have any medication questions, your symptoms worsen and you have a fever Follow-up/Referrals: Kenneth Agrawal DO [Primary Care Provider] - (Date & Time 07/13/2021 12:00 PM Provider Kenneth Agrawal DO Department Family Practice [facility] ) Diet: Regular Addtl Attending Provider Instructions: We have started you on midodrine to keep the blood pressure up. Take three times daily. Follow up with family doctor in 1-2 weeks who will manage it further Take antibiotic doxycycline twice daily for 3 more days. Pending Studies at Discharge: No Stand-Alone Forms: My [facility] [employer], Smoking Cessation Medications and DC Order Prescriptions: New midodrine 2.5 mg Tablet 2.5 mg PO TID 30 Days Qty: 90 RF: 0 doxycycline monohydrate 100 mg tablet 100 mg PO BID Qty: 6 RF: 0 Continued Invega Sustenna 117 mg/0.75 mL syringe 0 mg IM MONTHLY RF: 0 Discharge Orders: Discharge Order (Routine); Ordered 07/09/21 Ordered By: Oren Agudelo Admission Data Admit Date/Time: 07/06/21 06:39 Attending Provider: Oren Agudelo Admit Provider: Carter Magana Primary Care Provider: Kenneth Agrawal Other Providers: Carter Magana ; [facility]
== END 2021-07-09 14:47 | disposition home health service (06) | DRG 392 ==
LOC: ED 03:10 → SUATTDRO 06:39 → EDINP 06:39 → 2N 07:45

== ENCOUNTER 2022-09-11 12:48 | Inpatient (IN) ==
--- NOTE | 2022-09-11 14:07 | Emergency Department Note ---
Impression & Plan Acute hyponatremia, Acute hypokalemia, Hypocalcemia, Elevated lactic acid level, Dizziness ED Provider Note HISTORY OF PRESENT ILLNESS: Patient is a 42-year-old male presenting with lightheadedness and reported fever. Patient was just discharged from [facility] 11 days ago. He reportedly has been doing well up until 3 days ago when he started to have dizziness described as lightheadedness and gait instability. Reports that he feels very "wobbly" when up and getting around, which is new for him since being home. He reportedly has been having low-grade fevers, Tmax of 99 over the last 3 days. Denies any chest pain or shortness of breath with the dizziness episodes. Denies any anticoagulation use. Denies any DVT or PE history. Denies any cough or fevers. Denies any nausea, vomiting or diarrhea. Denies any dysuria or hematuria. Patient was admitted to the [facility] ICU a month ago for sepsis secondary to a perirectal abscess. He is currently on outpatient Bactrim. ROS: as above PHYSICAL EXAM: Constitutional: Patient appears in no acute distress. HENT: Head: Normocephalic and atraumatic. Eyes: EOMI, PERRL Mouth/Throat: Mucous membranes moist. Neck: Trachea midline. Neck supple. Full range of motion of the neck without meningismus. Cardiovascular: Tachycardic with regular rhythm. No murmurs, rubs or gallops. Intact distal pulses. Pulmonary/Chest: No respiratory distress. Breath sounds clear and equal bilaterally. No wheezes or rales. Abdominal: BS +. Abdomen soft, no tenderness, rebound or guarding. Musculoskeletal: No edema, tenderness or deformity noted. Skin: Warm and dry. No rash, erythema, pallor or cyanosis Psychiatric: Appropriate mood and affect for situation. Neurological: Alert and keenly responsive. Facies symmetric. Able to raise eyebrows, close eyes, smile, puff mouth, stick out tongue, move tongue left and right and raise palate symmetrically. Able to shrug shoulders. PERRLA. SILT to forehead below eye and at jawline. Can hear soft nose bilaterally. Strength 5/5 in bilateral upper and lower extremities. SILT throughout bilateral upper and lower extremities. MDM: - Vitals signs showed tachycardia. - History obtained via patient. Patient presents with lightheadedness. Patient reports over the last 3 days has been very lightheaded and having gait instability. He reports he feels very wobbly and unstable when he is up walking. He reportedly walks with a walker and a cane at home. He was recently discharged from [facility] re[facility]. He reports he has had fevers, but reports his Tmax was up to 99. Denies any headache. - Chronic conditions affecting care: paranoid schizophrenia; perirectal abscess - Differential diagnoses include, but are not limited to: Electrolyte abnormal ity; CVA; TIA; UTI; pneumonia - Order placed for continuous cardiac monitoring. At this time, monitor showed rate of 86 bpm with normal sinus rhythm, per my interpretation. - External medical records reviewed. Patient was life flighted to [facility] at the end of July for sepsis from perirectal abscess. - EKG reviewed by myself showed sinus rhythm. Rate tachycardic with 109 bpm. QTc 503. No acute ischemic changes. - Laboratory workup interpreted by myself showed leukocytosis (WBC 11.85); chronic anemia (Hgb 8.6); hyponatremia (Na 126); hypokalemia (K 2.8); normal creatinine; elevated lactate (2.5); hypocalcemia (Ca 7.4); normal procalcitonin - CXR negative for pneumonia, per my interpretation. - CT head wo contrast negative for acute intracranial pathology. - CTA head/neck negative for pathology - Patient given 1L NS in ER. Given 20 mEq IV potassium for electrolyte replace ment. Given 1g IV calcium replacement. - Discussion was had with social sciences instructor about patient's case and need for admission. - Hospitalist consulted for admission. - Patient admitted to [facility] for further evaluation and management. I provided 32 minutes of critical care time to this patient's care outside of billable procedures. ASSESSMENT AND PLAN: Diagnosis: hyponatremia; hypokalemia; hypocalcemia; elevated lactate; leukocytosis; dizziness Plan: admit Past Med/Surg History Medical History Acute hypokalemia Anemia Cyst of face Depression Facial abscess Hidradenitis suppurativa Hypomagnesemia Hyponatremia Leukocytosis Paranoid schizophrenia Paranoid schizophrenia Perianal abscess Perirectal abscess Tobacco use disorder Surgical History History of incision and drainage Family History Other Cancer Denies family history of Schizophrenia Social History Smoking Status: Current every day smoker Tobacco Type: Cigarettes packs per day: 0.5; Cigarettes Per Day: 10; Second Hand Exposure: No; Hx Alcohol Use: No Hx Substance Use: No Preferred Language: Pashto Communication Ability: Effective Visual Impairment: No Limitations Hearing Ability: Normal Market Research Specialist Required: No Beliefs That Will Affect Care: None marital status: Single Current Living Situation: Parent Current Living Situation Comment: resides with mom and dad. current occupational status: disabled How many Children do You have: 0 Feels Safe at Home: Yes during the past year weight has: remained stable Assistive Devices: None Allergies Allergies Allergy/AdvReac Type Severity Reaction Status Date / Time Penicillins Allergy Severe Rash Verified 08/11/22 23:32 cefepime Allergy Intermediate lip Verified 08/11/22 23:32 swelling Home Meds Home Medications Medication Instructions Recorded Confirmed aripiprazole 10 mg tablet 10 mg PO DAILY 08/11/22 08/11/22 cyanocobalamin (vitamin B-12) 1,000 mcg PO DAILY 08/11/22 08/11/22 1,000 mcg tablet (Vitamin B-12) thiamine HCl (vitamin B1) 100 mg 100 mg PO DAILY 08/11/22 08/11/22 tablet (Vitamin B-1) Results & Data (ED) Vital Signs Vital Signs - 24 hr 09/11/22 12:52 09/11/22 13:45 09/11/22 13:43 Temperature 36.7 C Temperature Source Temporal Artery Scan Pulse Rate 118 H 105 H 109 H Pulse Rate from SpO2 Sensor Respiratory Rate 20 15 Respiratory Effort / Characteristics Non-Labored Spontaneous Respiratory Depth Normal Blood Pressure 103/66 Blood Pressure Mean 78 Pulse Oximetry 99 Oxygen Delivery Method Room Air Sepsis New/Unexplained Change in Mental Status N/A Sepsis Action Taken by Nursing No Action Required 09/11/22 13:50 09/11/22 14:00 09/11/22 14:00 Temperature Temperature Source Pulse Rate 105 H 101 H Pulse Rate from SpO2 Sensor Respiratory Rate 13 19 Respiratory Effort / Characteristics Respiratory Depth Blood Pressure 131/91 Blood Pressure Mean 104 Pulse Oximetry Oxygen Delivery Method Sepsis New/Unexplained Change in Mental Status Sepsis Action Taken by Nursing 09/11/22 14:10 09/11/22 14:20 09/11/22 14:30 Temperature Temperature Source Pulse Rate 109 H 103 H 113 H Pulse Rate from SpO2 Sensor 109 H Respiratory Rate 13 20 19 Respiratory Effort / Characteristics Respiratory Depth Blood Pressure Blood Pressure Mean Pulse Oximetry 100 Oxygen Delivery Method Sepsis New/Unexplained Change in Mental Status Sepsis Action Taken by Nursing 09/11/22 14:40 09/11/22 14:50 09/11/22 15:00 Temperature Temperature Source Pulse Rate Pulse Rate from SpO2 Sensor Respiratory Rate 13 18 24 Respiratory Effort / Characteristics Respiratory Depth Blood Pressure Blood Pressure Mean Pulse Oximetry Oxygen Delivery Method Sepsis New/Unexplained Change in Mental Status Sepsis Action Taken by Nursing 09/11/22 15:01 09/11/22 15:01 09/11/22 15:10 Temperature Temperature Source Pulse Rate Pulse Rate from SpO2 Sensor Respiratory Rate 14 17 Respiratory Effort / Characteristics Respiratory Depth Blood Pressure 128/100 Blood Pressure Mean 109 Pulse Oximetry Oxygen Delivery Method Sepsis New/Unexplained Change in Mental Status Sepsis Action Taken by Nursing 09/11/22 15:16 09/11/22 15:16 09/11/22 15:20 Temperature Temperature Source Pulse Rate 100 H 94 H Pulse Rate from SpO2 Sensor Respiratory Rate 19 17 Respiratory Effort / Characteristics Respiratory Depth Blood Pressure 115/88 Blood Pressure Mean 97 Pulse Oximetry Oxygen Delivery Method Sepsis New/Unexplained Change in Mental Status Sepsis Action Taken by Nursing Laboratory Data 09/11/22 14:00 09/11/22 14:00 Lab Results 09/11/22 09/11/22 09/11/22 Range/Units 14:00 14:00 14:00 WBC 11.85 H (4.8-10.8) K/ul RBC 2.76 L (4.70-6.10) M/uL Hgb 8.6 L (14.0-18.0) g/dl Hct 25.0 L (42.0-52.0) % MCV 90.6 (80.0-100.0) fL MCH 31.2 (25.0-34.0) pg MCHC 34.4 (32.0-36.0) g/dL RDW Std Deviation 48.1 H (36.4-46.3) fL RDW Coeff of Fausto 14.6 H (11.5-14.5) % Plt Count 374 (130-400) K/uL MPV 8.5 L (9.4-12.4) fL Immature Gran % (Auto) 0.4 % Neut % (Auto) 69.2 % Lymph % (Auto) 22.4 % [place] % (Auto) 6.7 % Eos % (Auto) 1.0 % Baso % (Auto) 0.3 % Neut # (Auto) 8.20 H (1.40-6.50) K/uL Lymph # (Auto) 2.65 (1.2-3.4) K/uL [place] # (Auto) 0.79 H (0.11-0.59) K/uL Eos # (Auto) 0.12 (0-0.50) K/uL Baso # (Auto) 0.04 (0-0.2) K/uL Immature Gran # (Auto) 0.05 (0.01-0.20) K/uL Sodium (136-145) mmol/L Potassium (3.5-5.1) mmol/L Chloride (98-107) mmol/L Carbon Dioxide (21-32) mmol/L Anion Gap (3-11) BUN (6-23) mg/dl Creatinine (0.6-1.4) mg/dl Est Cr Clr Drug Dosing Est GFR ( Amer) ml/min Est GFR (Non-Af Amer) ml/min BUN/Creatinine Ratio (10-20) Glucose (70-99(Fasting)) mg/dl Lactate 2.5 H* (0.4-2.0) mmol/L Calcium (8.6-10.3) mg/dl Total Bilirubin (0.2-1.0) mg/dl AST (13-39) U/L ALT (7-52) U/L Alkaline Phosphatase (34-104) U/L Troponin I High Sens (0-20) pg/ml Total Protein (6.0-8.3) gm/dl Albumin (3.4-5.0) gm/dl Globulin (2.5-4.0) gm/dl Albumin/Globulin Ratio (0.9-2) Procalcitonin < 0.05 (0-0.5) ng/ml Urine Color Urine Appearance (Clear) Urine pH (4.5-7.5) Ur Specific [place] (1.000-1.030) Urine Protein (Negative) Urine Glucose (UA) (Negative) Urine Ketones (Negative) Urine Blood (Negative) Urine Nitrite (Negative) Urine Bilirubin (Negative) Urine Urobilinogen (Negative) Ur Leukocyte Esterase (Negative) 09/11/22 09/11/22 09/11/22 Range/Units 14:00 14:30 16:31 WBC (4.8-10.8) K/ul RBC (4.70-6.10) M/uL Hgb (14.0-18.0) g/dl Hct (42.0-52.0) % MCV (80.0-100.0) fL MCH (25.0-34.0) pg MCHC (32.0-36.0) g/dL RDW Std Deviation (36.4-46.3) fL RDW Coeff of Fausto (11.5-14.5) % Plt Count (130-400) K/uL MPV (9.4-12.4) fL Immature Gran % (Auto) % Neut % (Auto) % Lymph % (Auto) % [place] % (Auto) % Eos % (Auto) % Baso % (Auto) % Neut # (Auto) (1.40-6.50) K/uL Lymph # (Auto) (1.2-3.4) K/uL [place] # (Auto) (0.11-0.59) K/uL Eos # (Auto) (0-0.50) K/uL Baso # (Auto) (0-0.2) K/uL Immature Gran # (Auto) (0.01-0.20) K/uL Sodium 126 L (136-145) mmol/L Potassium 2.8 L (3.5-5.1) mmol/L Chloride 96 L (98-107) mmol/L Carbon Dioxide 20 L (21-32) mmol/L Anion Gap 10 (3-11) BUN 5 L (6-23) mg/dl Creatinine 0.99 (0.6-1.4) mg/dl Est Cr Clr Drug Dosing Not Reportable Est GFR ( Amer) 107.7 ml/min Est GFR (Non-Af Amer) 92.9 ml/min BUN/Creatinine Ratio 5.1 L (10-20) Glucose 135 H (70-99(Fasting)) mg/dl Lactate 0.9 (0.4-2.0) mmol/L Calcium 7.4 L (8.6-10.3) mg/dl Total Bilirubin 0.4 (0.2-1.0) mg/dl AST 17 (13-39) U/L ALT 15 (7-52) U/L Alkaline Phosphatase 86 (34-104) U/L Troponin I High Sens 3.5 (0-20) pg/ml Total Protein 6.5 (6.0-8.3) gm/dl Albumin 3.5 (3.4-5.0) gm/dl Globulin 3.0 (2.5-4.0) gm/dl Albumin/Globulin Ratio 1.2 (0.9-2) Procalcitonin (0-0.5) ng/ml Urine Color Yellow Urine Appearance Clear (Clear) Urine pH 6.0 (4.5-7.5) Ur Specific [place] 1.007 (1.000-1.030) Urine Protein Negative (Negative) Urine Glucose (UA) Negative (Negative) Urine Ketones Negative (Negative) Urine Blood Negative (Negative) Urine Nitrite Negative (Negative) Urine Bilirubin Negative (Negative) Urine Urobilinogen Negative (Negative) Ur Leukocyte Esterase Negative (Negative) Administered Medications Discontinued Medications Sodium Chloride (Nss 1000ml) 1,000 mls @ 999 mls/hr IV .Q1H1M CORNELIUS Stop: 09/11/22 15:15 Last Admin: 09/11/22 15:11 Dose: 999 mls/hr Documented By: MAHIN Potassium Chloride (K Tylor / Wtr) 10 meq in 100 mls @ 100 mls/hr IV Q1H CORNELIUS; Protocol Stop: 09/11/22 16:59 Last Admin: 09/11/22 16:58 Dose: 100 mls/hr Documented By: Infusion: 09/11/22 16:11 Dose: 100 mls/hr Documented By: Admin: 09/11/22 15:11 Dose: 100 mls/hr Documented By: MAHIN Ioversol (Optiray 320 500ml) 114 ml IV ONCE ONE Stop: 09/11/22 16:01 Last Admin: 09/11/22 16:01 Dose: 114 ml Documented By: EDK Imaging Data Radiologist's Impression: Chest X-Ray 09/11/22 14:03 XR chest 1V portable HISTORY: 42 years-old Male dizziness; lightheadedness acute dizziness with weakness COMPARISON: 08/09/2022 TECHNIQUE: AP view of the chest FINDINGS: Cardiomediastinal and hilar silhouettes are within normal limits. There is no pneumothorax, pleural effusion, airspace consolidation or pulmonary edema. Bones of the chest appear grossly intact. IMPRESSION: No acute process. ACT 112: Negative or not required by law. The above report was generated using voice recognition software. It may contain grammatical, syntax or spelling errors. Electronically signed by: Siva Bishop M.D. 09/11/2022 2:[address] 09/11/22 14:03 CT angio head w con, CT angio neck with con, CT head/brain wo con CLINICAL HISTORY: 42 years-old Male with dizziness; blurry vision. Acute strokelike symptoms with blurry vision COMPARISON STUDY: Head CT 07/12/2021 TECHNIQUE: Unenhanced axial CT scan of the brain is performed. Subsequently, following the IV administration of 114 cc of Optiray, CT angiogram of the head and neck was performed from the aortic arch to the skull apex. Images are reviewed in the axial, sagittal, and coronal planes. 3-D MIPS images are created and assessed. IV contrast was administered without complication. All measurements were obtained according to NASCET criteria. A dose lowering technique was utilized adhering to the principles of ALARA. CT DOSE: 1228.63 mGy.cm FINDINGS: CT BRAIN: There is no acute intracranial hemorrhage, midline shift, hydrocephalus, intr acranial mass, territorial ischemia or abnormal extra-axial collections. No abnormal intra-axial or extra-axial enhancement. Paranasal sinuses are clear. Small mastoid effusions. No calvarial fracture. CT ANGIOGRAM OF THE HEAD AND NECK: 4 vessel morphology of the thoracic aortic arch. Patency of the innominate and imaged subclavian arteries. The common and internal carotid arteries are widely patent. The bilateral anterior and middle cerebral arteries are also patent. The vertebrobasilar system and posterior cerebral arteries are widely patent. origin of the posterior cerebral arteries. There is no aneurysm, high-grade stenosis, or proximal branch occlusion identified. Dural sinuses appear patent. Lung apices appear to be clear. Unremarkable soft tissues. No acute fracture. IMPRESSION: 1. No acute intracranial abnormality. 2. Unremarkable CTA of the head and neck. ACT 112: Negative or not required by law. The above report was generated using voice recognition software. It may contain grammatical, syntax or spelling errors. Electronically signed by: Siva Bishop M.D. 09/11/2022 4:28 PM Head CTA 09/11/22 14:04 CT angio head w con, CT angio neck with con, CT head/brain wo con CLINICAL HISTORY: 42 years-old Male with dizziness; blurry vision. Acute strokelike symptoms with blurry vision COMPARISON STUDY: Head CT 07/12/2021 TECHNIQUE: Unenhanced axial CT scan of the brain is performed. Subsequently, following the IV administration of 114 cc of Optiray, CT angiogram of the head and neck was performed from the aortic arch to the skull apex. Images are reviewed in the axial, sagittal, and coronal planes. 3-D MIPS images are created and assessed. IV contrast was administered without complication. All measurements were obtained according to NASCET criteria. A dose lowering technique was utilized adhering to the principles of ALARA. CT DOSE: 1228.63 mGy.cm FINDINGS: CT BRAIN: There is no acute intracranial hemorrhage, midline shift, hydrocephalus, i ntracranial mass, territorial ischemia or abnormal extra-axial collections. No abnormal intra-axial or extra-axial enhancement. Paranasal sinuses are clear. Small mastoid effusions. No calvarial fracture. CT ANGIOGRAM OF THE HEAD AND NECK: 4 vessel morphology of the thoracic aortic arch. Patency of the innominate and imaged subclavian arteries. The common and internal carotid arteries are widely patent. The bilateral anterior and middle cerebral arteries are also patent. The vertebrobasilar system and posterior cerebral arteries are widely patent. origin of the posterior cerebral arteries. There is no aneurysm, high-grade stenosis, or proximal branch occlusion identified. Dural sinuses appear patent. Lung apices appear to be clear. Unremarkable soft tissues. No acute fracture. IMPRESSION: 1. No acute intracranial abnormality. 2. Unremarkable CTA of the head and neck. ACT 112: Negative or not required by law. The above report was generated using voice recognition software. It may contain grammatical, syntax or spelling errors. Electronically signed by: Siva Bishop M.D. 09/11/2022 4:28 PM Neck CTA 09/11/22 14:04 CT angio head w con, CT angio neck with con, CT head/brain wo con CLINICAL HISTORY: 42 years-old Male with dizziness; blurry vision. Acute strokelike symptoms with blurry vision COMPARISON STUDY: Head CT 07/12/2021 TECHNIQUE: Unenhanced axial CT scan of the brain is performed. Subsequently, following the IV administration of 114 cc of Optiray, CT angiogram of the head and neck was performed from the aortic arch to the skull apex. Images are reviewed in the axial, sagittal, and coronal planes. 3-D MIPS images are created and assessed. IV contrast was administered without complication. All measurements were obtained according to NASCET criteria. A dose lowering technique was utilized adhering to the principles of ALARA. CT DOSE: 1228.63 mGy.cm FINDINGS: CT BRAIN: There is no acute intracranial hemorrhage, midline shift, hydrocephalus, intracranial mass, territorial ischemia or abnormal extra-axial collections. No abnormal intra-axial or extra-axial enhancement. Paranasal sinuses are clear. Small mastoid effusions. No calvarial fracture. CT ANGIOGRAM OF THE HEAD AND NECK: 4 vessel morphology of the thoracic aortic arch. Patency of the innominate and imaged subclavian arteries. The common and internal carotid arteries are widely patent. The bilateral anterior and middle cerebral arteries are also patent. The vertebrobasilar system and posterior cerebral arteries are widely patent. origin of the posterior cerebral arteries. There is no aneurysm, high-grade stenosis, or proximal branch occlusion identified. Dural sinuses appear patent. Lung apices appear to be clear. Unremarkable soft tissues. No acute fracture. IMPRESSION: 1. No acute intracranial abnormality. 2. Unremarkable CTA of the head and neck. ACT 112: Negative or not required by law. The above report was generated using voice recognition software. It may contain grammatical, syntax or spelling errors. Electronically signed by: Siva Bishop M.D. 09/11/2022 4:28 PM Discharge Plan Visit Data Chief Complaint: Dizziness Stated Complaint: DIZZINESS, LIGHTHEADED, POSSIBLE FEVER ED Provider: Heaven Roca Discharge Problem: Acute hyponatremia, Acute hypokalemia, Hypocalcemia, Elevated lactic acid level, Dizziness Forms Stand Alone Forms: [employer] Prescriptions Prescriptions: No Action aripiprazole 10 mg tablet 10 mg PO DAILY cyanocobalamin (vitamin B-12) [Vitamin B-12] 1,000 mcg Tablet 1,000 mcg PO DAILY thiamine HCl (vitamin B1) [Vitamin B-1] 100 mg Tablet 100 mg PO DAILY Referrals Referrals: Kenneth Agrawal DO [Primary Care Provider] -
[2022-09-11] MEDS ORDERED: SODIUM CHLORIDE 0.9% 1000ML 1,000 ML IV SCH (14:15)
--- NOTE | 2022-09-11 14:22 | XRay Report ---
XR chest 1V portable HISTORY: 42 years-old Male dizziness; lightheadedness acute dizziness with weakness COMPARISON: 08/09/2022 TECHNIQUE: AP view of the chest FINDINGS: Cardiomediastinal and hilar silhouettes are within normal limits. There is no pneumothorax, pleural e ffusion, airspace consolidation or pulmonary edema. Bones of the chest appear grossly intact. IMPRESSION: No acute process. ACT 112: Negative or not required by law. The above report was generated using voice recognition software. It may contain grammatical, syntax o r spelling errors. Electronically signed by: Siva Bishop M.D. 09/11/2022 2:20 PM
[2022-09-11 14:31] LABS: Basophils # (auto) 0.04 K/uL (0-0.2); Basophils % (auto) 0.3 %; Eosinophils # (auto) 0.12 K/uL (0-0.50); Hemoglobin 8.6 g/dl (14.0-18.0); Immature Granulocytes # (auto) 0.05 K/uL (0.01-0.20); Immature Granulocytes % (auto) 0.4 %; Lymphocytes # (auto) 2.65 K/uL (1.2-3.4); Lymphocytes % (auto) 22.4 %; Mean Corpuscular Hemoglobin 31.2 pg (25.0-34.0); Mean Corpuscular Hgb Conc 34.4 g/dL (32.0-36.0); Mean Corpuscular Volume 90.6 fL (80.0-100.0); Mean Platelet Volume 8.5 fL (9.4-12.4); Monocytes # (auto) 0.79 K/uL (0.11-0.59); Monocytes % (auto) 6.7 %; Neutrophils % (auto) 69.2 %; Platelet Count 374 K/uL (130-400); RDW Coefficient of Variation 14.6 % (11.5-14.5); RDW Standard Deviation 48.1 fL (36.4-46.3); Red Blood Count 2.76 M/uL (4.70-6.10); White Blood Count 11.85 K/ul (4.8-10.8)
[2022-09-11 14:45] LABS: Alanine Aminotransferase 15 U/L (7-52); Albumin Globulin Ratio 1.2 (0.9-2); Albumin Level 3.5 gm/dl (3.4-5.0); Alkaline Phosphatase 86 U/L (34-104); Anion Gap 10 (3-11); Aspartate Aminotransferase 17 U/L (13-39); BUN Creatinine Ratio 5.1 (10-20); Bilirubin,Total 0.4 mg/dl (0.2-1.0); Blood Urea Nitrogen 5 mg/dl (6-23); Calcium 7.4 mg/dl (8.6-10.3); Carbon Dioxide 20 mmol/L (21-32); Chloride 96 mmol/L (98-107); Est GFR (African American) 107.7 ml/min; Est GFR (Non-African American) 92.9 ml/min; Glucose 135 mg/dl (70-99(Fasting)); Potassium 2.8 mmol/L (3.5-5.1); Sodium 126 mmol/L (136-145); Total Protein 6.5 gm/dl (6.0-8.3)
[2022-09-11 14:51] LABS: Troponin I High Sensitivity 3.5 pg/ml (0-20)
[2022-09-11] MEDS: POTASSIUM CHLORIDE / WTR 10 MEQ/100 ML PLCT IV SCH ×4 (15:11→22:20)
[2022-09-11 15:22] LABS: Appearance Urine Clear (Clear); Bilirubin Urine Negative (Negative); Blood Urine Negative (Negative); Color Urine Yellow; Glucose Urine UA Negative (Negative); Ketones Urine Negative (Negative); Leukocyte Esterase Urine Negative (Negative); Nitrite Urine Negative (Negative); Protein Urine Negative (Negative); Specific Gravity Urine 1.007 (1.000-1.030); Urobilinogen Urine Negative (Negative)
[2022-09-11] MEDS ORDERED: OPTIRAY 320 500ml IV ONE (16:00)
--- NOTE | 2022-09-11 16:30 | CT Scan Report ---
CT angio head w con, CT angio neck with con, CT head/brain wo con CLINICAL HISTORY: 42 years-old Male with dizziness; blurry vision. Acute strokelike symptoms with blurry vision COMPARISON STUDY: Head CT 07/12/2021 TECHNIQUE: Unenhanced axial CT scan of the brain is performed. Subsequently, following the IV adminis tration of 114 cc of Optiray, CT angiogram of the head and neck was performed from the aortic arch to the skull apex. Images are reviewed in the axial, sagittal, and coronal planes. 3-D MIPS images are created and assessed. IV contrast was administered without complication. All measurements were obtain ed according to NASCET criteria. A dose lowering technique was utilized adhering to the principles of ALARA. CT DOSE: 1228.63 mGy.cm FINDINGS: CT BRAIN: There is no acute intracranial hemorrhage, midline shift, hydrocephalus, intracranial mass, territori al ischemia or abnormal extra-axial collections. No abnormal intra-axial or extra-axial enhancement. Paranasal sinuses are clear. Small mastoid effusions. No calvarial fracture. CT ANGIOGRAM OF THE HEAD AND NECK: 4 vessel morphology of the thoracic aortic arch. Patency of the innominate and imaged subclavian maurizio hilda. The common and internal carotid arteries are widely patent. The bilateral anterior and middle c erebral arteries are also patent. The vertebrobasilar system and posterior cerebral arteries are wide ly patent. origin of the posterior cerebral arteries. There is no aneurysm, high-grade stenosis , or proximal branch occlusion identified. Dural sinuses appear patent. Lung apices appear to be clear. Unremarkable soft tissues. No acute fracture. IMPRESSION: 1. No acute intracranial abnormality. 2. Unremarkable CTA of the head and neck. ACT 112: Negative or not required by law. The above report was generated using voice recognition software. It may contain grammatical, syntax o r spelling errors. Electronically signed by: Siva Bishop M.D. 09/11/2022 4:28 PM
[2022-09-11] MEDS ORDERED: CALCIUM GLUCONATE 1,000 MG/60 ML BAG IV STA (17:17)
[2022-09-11] MEDS ORDERED: POTASSIUM CHLORIDE 20 MEQ/15 ML UDC PO STA (17:54)
[2022-09-11 19:59] LABS: Magnesium 0.9 mg/dl (1.7-2.4)
--- NOTE | 2022-09-11 20:39 | History & Physical Report ---
Date of Service September 11, 2022 Assessment & Plan (1) Acute hyponatremia: (2) Acute hypokalemia: (3) Hypomagnesemia: Plan: Admit to telemetry Patient presenting from home with reports of generalized weakness and dizziness. Recently admitted to [facility] 08/12 through 08/17 for management of septic shock due to necrotizing fasciitis and perirectal abscess. Reported poor p.o. intake over the past few days. Also started on Bactrim on 09/07 -- ? also contributing to hyponatremia In the ED, labs show Na+ 126, K+ 2.8, Mg +0.9 Received 1 L NSS in ED, replace potassium and magnesium --follow-up BMP later this evening Check urine and serum osmolality, urine sodium, TSH Nephrology consult (4) Paranoid schizophrenia: Plan: Continue Abilify (5) Hidradenitis suppurativa: (6) Perirectal abscess: (7) Critical illness myopathy: Plan: Recently admitted to [facility] for management of necrotizing fasciitis and perirectal abscess Discharged to [facility] on Augmentin, completed course. Returned home on 08/31. Given a 10-day course of Bactrim on 09/07 by general surgery. Will hold for now due to hyponatremia. Afebrile, no signs of recurrent infection. PT/OT (8) Anemia: Plan: Hgb 8.6, improved from recent baseline of ~ 8.0 Likely anemia of chronic disease due to recent severe illness Monitor CBC DVT PROPHYLAXIS SQ Lovenox Patient seen in collaboration with Dr Gissell Amaya spent a total of 75 minutes coordinating, documenting, and providing care for this patient excluding time spent in the performance of separately billed services. This included personally reviewing all current laboratories and imaging studies, medication reconciliation, outpatient chart review, and discussion with specialists. History of Present Illness Chief Complaint: Weakness, dizziness Primary Care Provider: Kenneth Agrawal DO 42-year-old male with PMH paranoid schizophrenia, hidradenitis suppurativa, and other problems listed below who presents to the ED for evaluation of weakness and dizziness. Patient recently admitted to [facility] 08/12 through 08/17 for management of perirectal abscess and necrotizing fasciitis. Patient underwent surgical I&D. Discharged to [facility] on Augmentin. Returned home on 08/31. Saw general surgery as an outpatient for postop follow-up on 09/07 and started on a 10-day course of Bactrim. Per patient's father, patient has had decreased oral intake over the past few days. Patient complains of feeling dizzy and generally weak. Drain remains in place for perirectal abscess. Healing well. Patient reports low-grade fever, afebrile in ED. No chest pain or shortness of breath. Denies syncopal event. No abdominal pain, nausea, vomiting, diarrhea. Denies urinary symptoms. In the ED, labs show several electrolyte derangements including Na+ 126, K+ 2.8, Mg +0.9. Patient received calcium gluconate, magnesium and potassium replacement, IVF. Allergies Allergy/AdvReac Type Severity Reaction Status Date / Time Penicillins Allergy Severe Rash Verified 08/11/22 23:32 cefepime Allergy Intermediate lip Verified 08/11/22 23:32 swelling Home Medications Medication Instructions Recorded Confirmed Type aripiprazole 10 mg tablet 10 mg PO DAILY 08/11/22 09/11/22 History sulfamethoxazole 800 1 tab PO BID 09/11/22 09/11/22 History mg-trimethoprim 160 mg tablet Past Med/Surg History Medical History Anemia Critical illness myopathy Depression Hidradenitis suppurativa Paranoid schizophrenia Perirectal abscess Tobacco use disorder Surgical History History of incision and drainage Family History Other Cancer Denies family history of Schizophrenia Social History Smoking Status: Current every day smoker Tobacco Type: Cigarettes packs per day: 0.5; Cigarettes Per Day: 10; Second Hand Exposure: No; Do You Dip or Chew Tobacco: No; Tobacco Cessation Education Requested by Patient: No Hx Alcohol Use: No Hx Substance Use: No Preferred Language: Bengali Communication Ability: Effective Visual Impairment: No Limitations Hearing Ability: Normal Candle Wrapper Required: No Beliefs That Will Affect Care: None marital status: Single Current Living Situation: Family Current Living Situation Comment: resides with mom and dad. current occupational status: disabled How many Children do You have: 0 Other Information That Helps Us Care for You: No Feels Safe at Home: Yes Safety Concerns: Feels Safe At This Time during the past year weight has: remained stable Assistive Devices: Cane and Walker Review of Systems Review of Systems: ROS per HPI, all other systems reviewed and negative Physical Exam Constitutional: WD/WN, vitals as above Eyes: PERRL, conjunctivae normal, anicteric sclerae ENMT: Ears: no external ear abnormality Nose: no external nose abnormality Mouth: + poor dentition Respiratory: normal respiratory effort, lungs clear to auscultation Cardiovascular: Rate/Rhythm: regular rate and regular rhythm Vessels: normal peripheral pulses Extremities: no edema Gastrointestinal (Abdomen): normal bowel sounds, soft, nontender, no hepatosplenomegaly Musculoskeletal: no cyanosis or clubbing, extremities motor strength 5/5 Skin: no rashes, warm and dry Neurologic: PERRL, EOMI, accommodation nl, no face palsy, no dysarthria Psychiatric: Orientation: alert and oriented x 3 Affect: + flat affect Results & Data Results & Data Vital Signs (Past 12 Hours) Vital Signs Temp Pulse Resp BP Pulse Ox O2 Del Method 09/11/22 17:50 19 09/11/22 17:46 88 09/11/22 17:46 115/67 09/11/22 17:40 94 H 13 09/11/22 17:32 116/69 09/11/22 17:32 84 18 09/11/22 17:30 107 H 09/11/22 17:20 99 H 17 09/11/22 17:15 78 14 09/11/22 17:15 103/66 09/11/22 17:10 75 17 09/11/22 17:00 72 16 09/11/22 17:00 105/68 09/11/22 16:50 70 14 98 09/11/22 16:45 94 H 16 100 09/11/22 16:45 102/70 09/11/22 16:40 76 17 99 09/11/22 16:30 87 16 93 09/11/22 16:30 116/72 09/11/22 16:20 84 18 99 09/11/22 16:15 88 15 100 09/11/22 16:15 104/67 09/11/22 16:14 85 19 99 09/11/22 16:14 119/75 09/11/22 15:30 119/80 09/11/22 15:20 94 H 17 09/11/22 15:16 100 H 19 09/11/22 15:16 115/88 09/11/22 15:10 17 09/11/22 15:01 128/100 09/11/22 15:01 14 09/11/22 15:00 24 09/11/22 14:50 18 09/11/22 14:40 13 09/11/22 14:30 113 H 19 09/11/22 14:20 103 H 20 09/11/22 14:10 109 H 13 100 09/11/22 14:00 101 H 19 09/11/22 14:00 131/91 09/11/22 13:50 105 H 13 09/11/22 13:43 109 H 15 09/11/22 13:45 105 H 09/11/22 12:52 36.7 C 118 H 20 103/66 99 Room Air Laboratory Results Short CBC 09/11/22 Range/Units 14:00 WBC 11.85 H (4.8-10.8) K/ul Hgb 8.6 L (14.0-18.0) g/dl Hct 25.0 L (42.0-52.0) % Plt Count 374 (130-400) K/uL BMP 09/11/22 14:00 Sodium 126 L Potassium 2.8 L Chloride 96 L Carbon Dioxide 20 L BUN 5 L Creatinine 0.99 Glucose 135 H Calcium 7.4 L Liver Function 09/11/22 Range/Units 14:00 Total Bilirubin 0.4 (0.2-1.0) mg/dl AST 17 (13-39) U/L ALT 15 (7-52) U/L Alkaline Phosphatase 86 (34-104) U/L Albumin 3.5 (3.4-5.0) gm/dl Urine 09/11/22 Range/Units 14:30 Urine Color Yellow Urine Appearance Clear (Clear) Urine pH 6.0 (4.5-7.5) Ur Specific Carver 1.007 (1.000-1.030) Urine Protein Negative (Negative) Urine Glucose (UA) Negative (Negative) Diagnostic Findings Chest X-Ray 09/11/22 14:03 XR chest 1V portable HISTORY: 42 years-old Male dizziness; lightheadedness acute dizziness with weakness COMPARISON: 08/09/2022 TECHNIQUE: AP view of the chest FINDINGS: Cardiomediastinal and hilar silhouettes are within normal limits. There is no pneumothorax, pleural effusion, airspace consolidation or pulmonary edema. Bones of the chest appear grossly intact. IMPRESSION: No acute process. ACT 112: Negative or not required by law. The above report was generated using voice recognition software. It may contain grammatical, syntax or spelling errors. Electronically signed by: Siva Bishop M.D. 09/11/2022 2:[address] 09/11/22 14:03 CT angio head w con, CT angio neck with con, CT head/brain wo con CLINICAL HISTORY: 42 years-old Male with dizziness; blurry vision. Acute strokelike symptoms with blurry vision COMPARISON STUDY: Head CT 07/12/2021 TECHNIQUE: Unenhanced axial CT scan of the brain is performed. Subsequently, following the IV administration of 114 cc of Optiray, CT angiogram of the head and neck was performed from the aortic arch to the skull apex. Images are reviewed in the axial, sagittal, and coronal planes. 3-D MIPS images are created and assessed. IV contrast was administered without complication. All measurements were obtained according to NASCET criteria. A dose lowering technique was utilized adhering to the principles of ALARA. CT DOSE: 1228.63 mGy.cm FINDINGS: CT BRAIN: There is no acute intracranial hemorrhage, midline shift, hydrocephalus, intracranial mass, territorial ischemia or abnormal extra-axial collections. No abnormal intra-axial or extra-axial enhancement. Paranasal sinuses are clear. Small mastoid effusions. No calvarial fracture. CT ANGIOGRAM OF THE HEAD AND NECK: 4 vessel morphology of the thoracic aortic arch. Patency of the innominate and imaged subclavian arteries. The common and internal carotid arteries are widely patent. The bilateral anterior and middle cerebral arteries are also patent. The vertebrobasilar system and posterior cerebral arteries are widely patent. origin of the posterior cerebral arteries. There is no aneurysm, high-grade stenosis, or proximal branch occlusion identified. Dural sinuses appear patent. Lung apices appear to be clear. Unremarkable soft tissues. No acute fracture. IMPRESSION: 1. No acute intracranial abnormality. 2. Unremarkable CTA of the head and neck. ACT 112: Negative or not required by law. The above report was generated using voice recognition software. It may contain grammatical, syntax or spelling errors. Electronically signed by: Siva Bishop M.D. 09/11/2022 4:28 PM Head CTA 09/11/22 14:04 CT angio head w con, CT angio neck with con, CT head/brain wo con CLINICAL HISTORY: 42 years-old Male with dizziness; blurry vision. Acute strokelike symptoms with blurry vision COMPARISON STUDY: Head CT 07/12/2021 TECHNIQUE: Unenhanced axial CT scan of the brain is performed. Subsequently, following the IV administration of 114 cc of Optiray, CT angiogram of the head and neck was performed from the aortic arch to the skull apex. Images are reviewed in the axial, sagittal, and coronal planes. 3-D MIPS images are created and assessed. IV contrast was administered without complication. All measurements were obtained according to NASCET criteria. A dose lowering technique was utilized adhering to the principles of ALARA. CT DOSE: 1228.63 mGy.cm FINDINGS: CT BRAIN: There is no acute intracranial hemorrhage, midline shift, hydrocephalus, intracranial mass, territorial ischemia or abnormal extra-axial collections. No abnormal intra-axial or extra-axial enhancement. Paranasal sinuses are clear. Small mastoid effusions. No calvarial fracture. CT ANGIOGRAM OF THE HEAD AND NECK: 4 vessel morphology of the thoracic aortic arch. Patency of the innominate and imaged subclavian arteries. The common and internal carotid arteries are widely patent. The bilateral anterior and middle cerebral arteries are also patent. The vertebrobasilar system and posterior cerebral arteries are widely patent. origin of the posterior cerebral arteries. There is no aneurysm, high-grade stenosis, or proximal branch occlusion identified. Dural sinuses appear patent. Lung apices appear to be clear. Unremarkable soft tissues. No acute fracture. IMPRESSION: 1. No acute intracranial abnormality. 2. Unremarkable CTA of the head and neck. ACT 112: Negative or not required by law. The above report was generated using voice recognition software. It may contain grammatical, syntax or spelling errors. Electronically signed by: Siva Bishop M.D. 09/11/2022 4:28 PM Neck CTA 09/11/22 14:04 CT angio head w con, CT angio neck with con, CT head/brain wo con CLINICAL HISTORY: 42 years-old Male with dizziness; blurry vision. Acute strokelike symptoms with blurry vision COMPARISON STUDY: Head CT 07/12/2021 TECHNIQUE: Unenhanced axial CT scan of the brain is performed. Subsequently, following the IV administration of 114 cc of Optiray, CT angiogram of the head and neck was performed from the aortic arch to the skull apex. Images are reviewed in the axial, sagittal, and coronal planes. 3-D MIPS images are created and assessed. IV contrast was administered without complication. All measurements were obtained according to NASCET criteria. A dose lowering technique was utilized adhering to the principles of ALARA. CT DOSE: 1228.63 mGy.cm FINDINGS: CT BRAIN: There is no acute intracranial hemorrhage, midline shift, hydrocephalus, intracranial mass, territorial ischemia or abnormal extra-axial collections. No abnormal intra-axial or extra-axial enhancement. Paranasal sinuses are clear. Small mastoid effusions. No calvarial fracture. CT ANGIOGRAM OF THE HEAD AND NECK: 4 vessel morphology of the thoracic aortic arch. Patency of the innominate and imaged subclavian arteries. The common and internal carotid arteries are widely patent. The bilateral anterior and middle cerebral arteries are also patent. The vertebrobasilar system and posterior cerebral arteries are widely patent. origin of the posterior cerebral arteries. There is no aneurysm, high-grade stenosis, or proximal branch occlusion identified. Dural sinuses appear patent. Lung apices appear to be clear. Unremarkable soft tissues. No acute fracture. IMPRESSION: 1. No acute intracranial abnormality. 2. Unremarkable CTA of the head and neck. ACT 112: Negative or not required by law. The above report was generated using voice recognition software. It may contain grammatical, syntax or spelling errors. Electronically signed by: Siva Bishop M.D. 09/11/2022 4:28 PM Code Status & VTE Plan VTE Prophylaxis Plan VTE Prophylaxis will be ordered: Yes Supervising Physician Co-Signing Physician Notes Pt seen and examined by myself, Dr. Princess Borrero MD on the day of service. Care was coordinated with ALIA Ferreira. Please refer to her note for additional information. 42yo gentleman admitted with Hx of paranoid schizophrenia presenting with generalized weakness, recently hospitalized and treated for perirectal abscess. Pt was alert, oriented, speech halting and slow. Was resting in no acute distress. Vitals reassuring, electrolyte disturbances noted on labwork (hyponatremia, hypokalemia, hypomagnesemia). replete electrolytes as needed, hold home bactrim that was recently prescribed for perirectal abscess. Telemetry monitoring. Consider general surgery f/u for perirectal abscess. (8) Anemia Anemia type: unspecified type Qualified Code(s): D64.9 - Anemia, unspecified
[2022-09-11] MEDS: MAGNESIUM SULFATE / D5W 1 GM/100 ML BAG IV SCH ×2 (21:03→22:14)
[2022-09-11] MEDS: ENOXAPARIN INJ 40 MG/0.4 ML SYR SQ SCH (22:17)
[2022-09-11 23:58] LABS: BUN Creatinine Ratio 3.7 (10-20); Calcium 7.7 mg/dl (8.6-10.3); Creatinine Clr Calc Pharmacy 107.6 ml/min; Est GFR (African American) 125.5 ml/min; Est GFR (Non-African American) 108.3 ml/min; Potassium 3.6 mmol/L (3.5-5.1)
[2022-09-12 03:25] LABS: Basophils # (auto) 0.01 K/uL (0-0.2); Basophils % (auto) 0.1 %; Eosinophils # (auto) 0.16 K/uL (0-0.50); Eosinophils % (auto) 2.2 %; Hematocrit (blood only) 24.1 % (42.0-52.0); Hemoglobin 8.2 g/dl (14.0-18.0); Immature Granulocytes # (auto) 0.01 K/uL (0.01-0.20); Immature Granulocytes % (auto) 0.1 %; Lymphocytes % (auto) 49.2 %; Mean Corpuscular Hemoglobin 31.4 pg (25.0-34.0); Mean Corpuscular Volume 92.3 fL (80.0-100.0); Mean Platelet Volume 8.6 fL (9.4-12.4); Monocytes # (auto) 0.62 K/uL (0.11-0.59); Monocytes % (auto) 8.5 %; Neutrophils # (auto) 2.92 K/uL (1.40-6.50); Neutrophils % (auto) 39.9 %; Platelet Count 373 K/uL (130-400); RDW Coefficient of Variation 14.6 % (11.5-14.5); RDW Standard Deviation 49.1 fL (36.4-46.3); Red Blood Count 2.61 M/uL (4.70-6.10); White Blood Count 7.32 K/ul (4.8-10.8)
[2022-09-12 05:53] LABS: BUN Creatinine Ratio 3.8 (10-20); Calcium 7.8 mg/dl (8.6-10.3); Creatinine Clr Calc Pharmacy 111.7 ml/min; Est GFR (African American) 127.5 ml/min; Potassium 3.4 mmol/L (3.5-5.1)
[2022-09-12] MEDS: ARIPiprazole 10 MG TAB PO SCH (08:34)
[2022-09-12] MEDS: POTASSIUM CHLORIDE CRTAB 20 MEQ TABCR PO SCH ×2 (08:34→21:32)
[2022-09-12] MEDS: ACETAMINOPHEN 325 MG TAB PO PRN ×2 (08:35→21:53)
[2022-09-12] MEDS ORDERED: SODIUM CHLORIDE 0.9% 500 ML IV SCH (09:15)
--- NOTE | 2022-09-12 10:03 | Nephrology Consultation ---
Date of Consultation September 12, 2022 Assessment & Plan (1) Acute hyponatremia: Hyponatremia likely due to hypovolemia. Patient received some IV fluids and sodium is up to 134. His potassium is on the lower side. We will supplement potassium. -Encourage high-protein diet which is mainly liquid diet such as boost or more protein shakes. -Allow patient to solid food -Okay to monitor sodium daily -No need for IV fluids unless systolic is less than 90 (2) Acute hypokalemia: Due to diarrhea. We will give potassium chloride 40 mEq twice daily for 2 days. History of Present Illness Attending Physician: Jonathan Donohue MD History of Present Illness 42-year-old male with PMH paranoid schizophrenia, hidradenitis suppurativa, and recently treated for perirectal abscess with I&D at [facility] and discharged on Bactrim who was admitted with weakness and dizziness. Saw general surgery as an outpatient for postop follow-up on 09/07 and started on a 10-day course of Bactrim. Patient complains of poor p.o. intake and diarrhea. He was found to have sodium of 126 on admission. He received some fluids. Sodium uptrending at 134. He feels better today denies any shortness of breath or leg swelling. He has trouble chewing food but able to take liquid diet well. Blood pressure is soft but asymptomatic. Allergies Allergy/AdvReac Type Severity Reaction Status Date / Time Penicillins Allergy Severe Rash Verified 08/11/22 23:32 cefepime Allergy Intermediate lip Verified 08/11/22 23:32 swelling Home Medications Medication Instructions Recorded Confirmed Type aripiprazole 10 mg tablet 10 mg PO DAILY 08/11/22 09/11/22 History sulfamethoxazole 800 1 tab PO BID 09/11/22 09/11/22 History mg-trimethoprim 160 mg tablet Patient History Medical History Anemia Critical illness myopathy Depression Hidradenitis suppurativa Paranoid schizophrenia Perirectal abscess Tobacco use disorder Surgical History History of incision and drainage Family History Other Cancer Denies family history of Schizophrenia Social History Smoking Status: Current every day smoker Tobacco Type: Cigarettes packs per day: 0.5; Cigarettes Per Day: 10; Second Hand Exposure: No; Do You Dip or Chew Tobacco: No; Tobacco Cessation Education Requested by Patient: No Hx Alcohol Use: No Hx Substance Use: No Preferred Language: Khmer Communication Ability: Effective Visual Impairment: No Limitations Hearing Ability: Normal Meat And Poultry Inspector Required: No Beliefs That Will Affect Care: None marital status: Single Current Living Situation: Family Current Living Situation Comment: resides with mom and dad. current occupational status: disabled How many Children do You have: 0 Other Information That Helps Us Care for You: No Feels Safe at Home: Yes Safety Concerns: Feels Safe At This Time during the past year weight has: remained stable Assistive Devices: Cane and Walker Review of Systems Review of Systems: All other systems were reviewed and negative except as noted in HPI Physical Exam Physical Exam: General exam: Appears comfortable, no acute distress HEENT: Pupils are equal and reactive to light Neck: No JVD, neck is supple trachea is midline Respiratory system: Clear breath sounds bilaterally. Gastrointestinal: Abdomen is soft, non distended, non tender, bowel sounds are present CVS: Regular rate and rhythm. No murmurs, rubs or gallops Musculoskeletal: No joint or muscle tenderness Extremities: Non tender, no edema, peripheral pulses are present Neuro: Oriented, no tremors, no focal neurological deficits Skin: No rashes Results & Data Vital Signs (Past 12 Hours) Vital Signs Temp Pulse Pulse Resp BP Pulse Ox O2 Del Method 09/12/22 07:47 79 09/12/22 07:47 36.4 C L 79 16 91/62 L 98 Room Air 09/12/22 03:23 36.6 C 77 18 104/72 96 Room Air 09/11/22 22:08 79 09/11/22 22:40 36.9 C 86 18 103/69 98 Room Air Laboratory Results 09/12/22 02:55 09/11/22 09/11/22 09/12/22 14:00 14:00 02:55 WBC 11.85 H 7.32 RBC 2.76 L 2.61 L MCV 90.6 92.3 MCH 31.2 31.4 MCHC 34.4 34.0 RDW Std Deviation 48.1 H 49.1 H RDW Coeff of Fausto 14.6 H 14.6 H Plt Count 374 373 MPV 8.5 L 8.6 L Albumin 3.5
--- NOTE | 2022-09-12 13:21 | Hospitalist Progress Note ---
Date of Service September 12, 2022 Assessment & Plan (1) Weakness: Plan: (1) Acute hyponatremia: (2) Acute hypokalemia: (3) Hypomagnesemia: Plan: Admit to telemetry Patient has history of recurrent rectal/gluteal abscesses 2/2 to hidradenitis suppurativa seems s/p september I and D's. Was transferred from [facility] ER on 08/12/22 for septic shock and perianeal necrotizing fascitis.Was on borad sepcturum antibiotocs. Debridement done by surgery on 08/12/22.Abx deescalated to Unasyn . Post op apnea required rapid intubation and was extubated on 08/13.Discharged on 08/17 with augmentin to [facility].Returned home on 08/31. Saw surgery on 09/07 and was placed on 10 day bactrim course. Presents with dizziness and weakness. Poor oral intake. Found to have electrolyte abnormalities. Holding Bactrim. Sodium 126 to 134 today to follow labs daily as per nephro. encourage oral intake protein shakes on potassium supplements for 2 days electrolytes improving Paranoid schizophrenia: Plan: Continue Abilify Hidradenitis suppurativa: Perirectal abscess: s/p drain on 08/12 drains still present somewhat foul smelling wound care consult will consult surgery. Critical illness myopathy: Plan: Recently admitted to [facility] for management of necrotizing fasciitis and perirectal abscess Discharged to [facility] on Augmentin, completed course. Returned home on 08/31. Given a 10-day course of Bactrim on 09/07 by general surgery. Holding bactrim for now due to hyponatremia. Afebrile, no signs of recurrent infection. PT/OT Poor oral intake dysphagia? seen by speech recommends solid alt liquids minced and moist food and if doesn't tolerated then change to pureed diet to crush meds aspiration precautions oral hygeine Anemia: Plan: Hgb 8.6, improved from recent baseline of ~ 8.0 Likely anemia of chronic disease due to recent severe illness Monitor CBC Malnutrition Nutrition consult. DVT PROPHYLAXIS SQ Lovenox Admission and Anticipated Discharge Date Admission Date: September 11, 2022 Subjective complains of discomfort at buttock region denies any headache no chest pain no abdominal pain no nausea no sob afebrile says was eating minced and moist food at home speech is evluating patient Review of Systems Review of Systems: As Above Physical Exam Eyes: EOMI Neck: trachea midline, no thyromegaly Respiratory: normal respiratory effort, lungs clear to auscultation Cardiovascular: RRR, no murmur, no edema Gastrointestinal (Abdomen): normal bowel sounds, soft, nontender, no h epatosplenomegaly Skin: Drains seen in buttock region no erythema or obvious drainage seen around drains but foul smelling Neurologic: alert and oriented speech clear no facial droop obeys commands moving extremities Results & Data Results & Data Vital Signs (Past 12 Hours) Vital Signs Temp Pulse Pulse Resp BP Pulse Ox O2 Del Method 09/12/22 11:45 36.8 C 81 18 114/72 99 Room Air 09/12/22 07:47 79 09/12/22 07:47 36.4 C L 79 16 91/62 L 98 Room Air 09/12/22 03:23 36.6 C 77 18 104/72 96 Room Air
--- NOTE | 2022-09-12 14:08 | Electrocardiogram Report ---
Test Reason : Blood Pressure : / mmHG Vent. Rate : 109 BPM Atrial Rate : 109 BPM P-R Int : 148 ms QRS Dur : 088 ms QT Int : 374 ms P-R-T Axes : 053 072 061 degrees QTc Int : 503 ms Sinus tachycardia Otherwise normal ECG When compared with ECG of 12-AUG-2022 00:00, QRS duration has decreased QT has shortened Confirmed by Samuel Sky ([id number]) on 09/12/2022 2:08:03 PM Referred By: REFERRED SELF Confirmed By:Samuel Sky
--- NOTE | 2022-09-12 17:17 | Surgery Consultation ---
Date of Consultation September 12, 2022 Assessment & Plan (1) Perirectal abscess: This has been drained at [facility]. There is no sign of any ongoing infection. Drain is in place and appears to be working well. Will sign off. Please call with questions History of Present Illness Reason for Consultation: assess perirectal abscess Requesting Physician: Jonathan Donohue MD Attending Physician: Jonathan Donohue MD History of Present Illness 42-year-old male with paranoid schizophrenia who presented to [facility] on August 12 with necrotizing fasciitis around a perianal abscess. He was transferred to [facility] where he underwent debridement. He now presents to the hospital today with weakness and is found to have electrolyte abnormalities. We are asked to see him to assess the healing of the perirectal wound. He denies any change in discharge over the past few days. He is not having significant pain in the area. Overall he feels as though it is improving to stable. Allergies Allergy/AdvReac Type Severity Reaction Status Date / Time Penicillins Allergy Severe Rash Verified 08/11/22 23:32 cefepime Allergy Intermediate lip Verified 08/11/22 23:32 swelling Home Medications Medication Instructions Recorded Confirmed Type aripiprazole 10 mg tablet 10 mg PO DAILY 08/11/22 09/11/22 History sulfamethoxazole 800 1 tab PO BID 09/11/22 09/11/22 History mg-trimethoprim 160 mg tablet Patient History Medical History Anemia Critical illness myopathy Depression Hidradenitis suppurativa Paranoid schizophrenia Perirectal abscess Tobacco use disorder Surgical History History of incision and drainage Family History Other Cancer Denies family history of Schizophrenia Social History Smoking Status: Current every day smoker Tobacco Type: Cigarettes packs per day: 0.5; Cigarettes Per Day: 10; Second Hand Exposure: No; Do You Dip or Chew Tobacco: No; Tobacco Cessation Education Requested by Patient: No Hx Alcohol Use: No Hx Substance Use: No Preferred Language: Urdu Communication Ability: Effective Visual Impairment: No Limitations Hearing Ability: Normal Philosophy Lecturer Required: No Beliefs That Will Affect Care: None marital status: Single Current Living Situation: Family Current Living Situation Comment: resides with mom and dad. current occupational status: disabled How many Children do You have: 0 Other Information That Helps Us Care for You: No Feels Safe at Home: Yes Safety Concerns: Feels Safe At This Time during the past year weight has: remained stable Assistive Devices: Walker Physical Exam Constitutional: WD/WN, vitals as above Skin: perirectal area examined. there is a seton type drain in place within two open fistulas. No surrounding erythema. Located on left buttock. No drainage, no fluctuance. Some induration around the drain sites persists. No sign of infection. Results & Data Vital Signs (Past 12 Hours) Vital Signs Temp Pulse Pulse Resp BP Pulse Ox O2 Del Method 09/12/22 16:00 94 H 09/12/22 11:45 36.8 C 81 18 114/72 99 Room Air 09/12/22 07:47 79 09/12/22 07:47 36.4 C L 79 16 91/62 L 98 Room Air Laboratory Results Abnormal lab results 09/11/22 09/11/22 09/11/22 Range/Units 14:00 15:00 18:03 RBC (4.70-6.10) M/uL Hgb (14.0-18.0) g/dl Hct (42.0-52.0) % RDW Std Deviation (36.4-46.3) fL RDW Coeff of Fausto (11.5-14.5) % MPV (9.4-12.4) fL Lymph # (Auto) (1.2-3.4) K/uL Graham # (Auto) (0.11-0.59) K/uL Sodium (136-145) mmol/L Potassium (3.5-5.1) mmol/L BUN (6-23) mg/dl BUN/Creatinine Ratio (10-20) Glucose (70-99(Fasting)) mg/dl Osmolality 263 L (280-300) mOsm/kg Calcium (8.6-10.3) mg/dl Magnesium 0.9 L* (1.7-2.4) mg/dl Urine Osmolality 131 L (500-800) mOsm/kg 09/11/22 09/12/2223 Range/Units 22:41 02:55 02:55 RBC 2.61 L (4.70-6.10) M/uL Hgb 8.2 L (14.0-18.0) g/dl Hct 24.1 L (42.0-52.0) % RDW Std Deviation 49.1 H (36.4-46.3) fL RDW Coeff of Fausto 14.6 H (11.5-14.5) % MPV 8.6 L (9.4-12.4) fL Lymph # (Auto) 3.60 H (1.2-3.4) K/uL Graham # (Auto) 0.62 H (0.11-0.59) K/uL Sodium 132 L 134 L (136-145) mmol/L Potassium 3.4 L (3.5-5.1) mmol/L BUN 3 L 3 L (6-23) mg/dl BUN/Creatinine Ratio 3.7 L 3.8 L (10-20) Glucose 102 H (70-99(Fasting)) mg/dl Osmolality (280-300) mOsm/kg Calcium 7.7 L 7.8 L (8.6-10.3) mg/dl Magnesium (1.7-2.4) mg/dl Urine Osmolality (500-800) mOsm/kg
[2022-09-12] MEDS: ENOXAPARIN INJ 40 MG/0.4 ML SYR SQ SCH (21:32)
[2022-09-13] MEDS: ACETAMINOPHEN 325 MG TAB PO PRN (08:45)
[2022-09-13] MEDS: ARIPiprazole 10 MG TAB PO SCH (09:41)
[2022-09-13] MEDS: POTASSIUM CHLORIDE CRTAB 20 MEQ TABCR PO SCH (09:41)
--- NOTE | 2022-09-13 11:15 | Discharge Summary ---
Discharge Summary Date of Service September 13, 2022 Admission HPI Per Admitting Provider 42-year-old male with PMH paranoid schizophrenia, hidradenitis suppurativa, and other problems listed below who presents to the ED for evaluation of weakness and dizziness. Patient recently admitted to [facility] 08/12 through 08/17 for management of perirectal abscess and necrotizing fasciitis. Patient underwent surgical I&D. Discharged to [facility] on Augmentin. Returned home on 08/31. Saw general surgery as an outpatient for postop follow-up on 09/07 and started on a 10-day course of Bactrim. Per patient's father, patient has had decreased oral intake over the past few days. Patient complains of feeling dizzy and generally weak. Drain remains in place for perirectal abscess. Healing well. Patient reports low-grade fever, afebrile in ED. No chest pain or shortness of breath. Denies syncopal event. No abdominal pain, nausea, vomiting, diarrhea. Denies urinary symptoms. In the ED, labs show several electrolyte derangements including Na+ 126, K+ 2.8, Mg +0.9. Patient received calcium gluconate, magnesium and potassium replacement, IVF. Principal Dx & Hospital Course #1 = Principal Diagnosis (1) Severe protein-calorie malnutrition: Updated Medication List Medication Instructions Recorded Confirmed Type aripiprazole 10 mg tablet 10 mg PO DAILY 08/11/22 09/11/22 History Hospital Stay Data Consultations 09/11/22 17:12 ED Decision to Admit Stat 09/11/22 21:36 Consult Nephrology Routine 09/13/22 08:00 Consult General Surgery Routine Diagnostic Imagining Performed 09/11/22 14:03 CT head/brain wo con Stat 09/11/22 14:04 CTA head w con [CT angio head w con] Stat CTA neck with con [CT angio neck with con] Stat Pending Results Patient Have Any Pending Studies at Discharge: No Discharge Instructions Given to Patient (Per Discharging Provider) Please take all medications as instructed on discharge list below. Please follow-up with your primary care provider as scheduled in one week. Please follow-up with your surgeon as scheduled. It was a pleasure taking care of you! Please call if you have any questions or problems. You can reach a [facility] hospitalist on duty at [facility] 24 hours a day by calling [phone]. Take care of yourself. DO [facility] Hospital[facility] Total Time Total Time Spent Total Time Spent (In Minutes): 60
== END 2022-09-13 17:04 | disposition home health service (06) | DRG 640 ==
LOC: ED 12:48 → SUATTDRO 17:56 → 2S 17:56

== ENCOUNTER 2022-10-16 08:13 | Inpatient (IN) ==
[2022-10-16] MEDS ORDERED: SODIUM CHLORIDE 0.9% 1000ML 500 ML IV ONE (08:40)
--- NOTE | 2022-10-16 08:46 | Emergency Department Note ---
History of Present Illness General Chief complaint: Illness Stated complaint: LEFT KNEE PAIN Time Seen by Provider: 10/16/22 08:30 Source: patient, RN notes reviewed and old records reviewed (I have reviewed the nephrology note as well as her recent hospitalization) Mode of arrival: ambulatory Limitations: no limitations History of Present Illness Maximum Pain Intensity: 6 This patient is a 42-year-old male who comes to the ER complaint left knee pain but he is also noted that he felt dizzy faint and nauseated on the way up here. It was noted in triage his blood pressure was 77 systolic. He has a recent [facility] history where he had perirectal abscesses drained at [place]. He is also been hyponatremic recently. He says has been covering from his perirectal abscesses he has home nursing there is no drainage or redness or warmth or tenderness and he feels are doing a lot better. He has no packing. He has had no fall or trauma or any injury to the knee he said it was bent and when he woke up it hurts anteriorly there is no calf or posterior tenderness no history of blood clots. Denies chest pain or shortness of breath denies any fever or chills or cough. No abdominal or back pain. No urinary symptoms. No blood or melena stool. no diarrhea. He says his p.o. intake has been somewhat decreased. Home Medications Medication Instructions Recorded Confirmed Type aripiprazole 10 mg tablet 10 mg PO QAM 08/11/22 10/16/22 History albuterol sulfate 90 mcg/actuation 2 puff inhalation Q6 PRN 09/28/22 10/16/22 History aerosol inhaler cough,SOB,wheezing cyanocobalamin (vitamin B-12) 1,000 mcg PO DAILY 09/28/22 10/16/22 History 1,000 mcg tablet lorazepam 1 mg tablet 1 mg PO Q8H PRN anxiety #12 tabs 09/28/22 10/16/22 Rx thiamine HCl (vitamin B1) 100 mg 100 mg PO QAM 09/28/22 10/16/22 History tablet hydroxyzine HCl 50 mg tablet 50 mg PO Q8H PRN Anxiety 10/16/22 10/16/22 History Allergies Allergy/AdvReac Type Severity Reaction Status Date / Time Penicillins Allergy Severe Rash Verified 09/28/22 21:10 cefepime Allergy Intermediate lip Verified 09/28/22 21:10 swelling Past Med/Surg History Medical History (Updated 10/16/22 @ 16:03 by Aleks rByant MD) Anemia Ataxia Critical illness myopathy Depression Hidradenitis suppurativa Idiopathic peripheral neuropathy Paranoid schizophrenia Perirectal abscess Tobacco use disorder Weakness Surgical History History of incision and drainage Family History Other Cancer Denies family history of Schizophrenia Social History Smoking Status: Current every day smoker Tobacco Type: Cigarettes packs per day: 0.5; Cigarettes Per Day: 10; Second Hand Exposure: No; Do You Dip or Chew Tobacco: No; Tobacco Cessation Education Requested by Patient: No Hx Alcohol Use: No Hx Substance Use: No Preferred Language: [place] Communication Ability: Effective Visual Impairment: No Limitations Hearing Ability: Normal 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 Required: No Beliefs That Will Affect Care: None marital status: Single Current Living Situation: Family Current Living Situation Comment: lives with father current occupational status: disabled How many Children do You have: 0 Feels Safe at Home: Yes Safety Concerns: Feels Safe At This Time Diet: regular during the past year weight has: remained stable Gender Identity: Male Assistive Devices: Cane and Walker Assistive Devices Comment: shower chair Review of Systems A total of 10 systems reviewed and were otherwise negative Physical Exam Vital Signs Vital Signs - 24 hr 10/16/22 08:21 10/16/22 08:44 10/16/22 08:40 Temperature 36.4 C L Temperature Source Temporal Artery Scan Pulse Rate 54 L 81 Pulse Rate [Apical] Pulse Rhythm [Apical] Pulse Strength [Apical] Respiratory Rate 14 Respiratory Effort / Characteristics Respiratory Depth Blood Pressure 77/47 L Blood Pressure [Right Arm] Blood Pressure Mean 57 Blood Pressure Mean [Right Arm] Pulse Oximetry 97 Oxygen Delivery Method Room Air Room Air Sepsis New/Unexplained Change in Mental Status No Sepsis Action Taken by Nursing No Action Required 10/16/22 09:00 10/16/22 09:30 10/16/22 10:00 Temperature Temperature Source Pulse Rate Pulse Rate [Apical] 63 63 59 L Pulse Rhythm [Apical] Regular Regular Pulse Strength [Apical] Normal Respiratory Rate 19 20 16 Respiratory Effort / Characteristics Non-Labored Spontaneous Non-Labored Spontaneous Non-Labored Spontaneous Respiratory Depth Normal Normal Normal Blood Pressure Blood Pressure [Right Arm] 104/71 110/79 93/61 L Blood Pressure Mean Blood Pressure Mean [Right Arm] 82 89 71 Pulse Oximetry 100 98 100 Oxygen Delivery Method Room Air Room Air Room Air Sepsis New/Unexplained Change in Mental Status Sepsis Action Taken by Nursing General: Well developed well nourished somewhat cachectic middle-aged male who appears in no acute distress, breathing comfortably on room air. Normal speech HEENT: Normal cephalic atraumatic. Pupils are equal round and reactive to light. Extraocular movements are intact. Oropharynx is pink with moist mucous membranes. No swelling of the mouth lips or tongue. Neck: Supple with a midline trachea. No meningeal signs or stiffness, no JVD or bruits. No Stridor. Chest: Clear to auscultation bilaterally. No wheezes or rhonchi. No increased work of breathing. Heart: Regular rate and rhythm without murmurs or gallops. Abdomen: Soft nontender, nondistended without rebound guarding or rigidity. Rectal: Multiple scars from previous incisions and drainages. There is no redness or drainage or purulence or fluctuance at this point there is some mild induration and areas but no evidence of any active abscess. Extremities: No cyanosis clubbing or edema. No calf tenderness or assymetry Spine/Back. Non tender to palpation. No CVA tenderness Skin: Good turgor without rashes. Neurologic exam: Cranial nerves two through 12 are intact. Motor and sensation are intact and symmetrical throughout. Course Administered Medications Acetaminophen (Acetaminophen 325 Mg Tab) 650 mg PO Q4H PRN PRN Reason: Pain or Fever Stop: 11/15/22 10:39 Last Admin: 10/16/22 12:50 Dose: 650 mg Documented By: JLA Discontinued Medications Gadobutrol (Gadobutrol 30ml Vial) 7 ml IV ONCE ONE Stop: 10/16/22 13:48 Last Admin: 10/16/22 13:48 Dose: 7 ml Documented By: JG Sodium Chloride (Nss 1000ml) 500 mls @ 999 mls/hr IV .Q31M ONE Stop: 10/16/22 09:10 Last Infusion: 10/16/22 09:43 Dose: 0 mls/hr Documented By: Admin: 10/16/22 09:12 Dose: 999 mls/hr Documented By: KENDALL Sodium Chloride (Nss) 500 mls @ 999 mls/hr IV .Q31M ONE Stop: 10/16/22 10:54 Last Infusion: 10/16/22 11:56 Dose: 0 mls/hr Documented By: Admin: 10/16/22 11:17 Dose: 999 mls/hr Documented By: ROSI Ketorolac Tromethamine (Ketorolac Tromethamine 15 Mg/Ml Vial) 10 mg IV NOW ONE Stop: 10/16/22 09:36 Last Admin: 10/16/22 09:41 Dose: 10 mg Documented By: KENDALL Medical Decision Making Differential Diagnosis Sepsis, dehydration, electrolyte or metabolic abnormality, knee injury, knee infection, perirectal abscess, mental health disorder, COVID Medical Records Attestation: I reviewed the patient's medical records. Home Medications Current Medication List: was personally reviewed by me Laboratory Data Attestation: I reviewed the patient's lab results. 10/16/22 08:50 10/16/22 08:50 Lab Results 10/16/22 10/16/22 10/16/22 Range/Units 08:40 08:50 08:50 WBC 6.95 (4.8-10.8) K/ul RBC 3.96 L (4.70-6.10) M/uL Hgb 11.5 L (14.0-18.0) g/dl Hct 36.2 L (42.0-52.0) % MCV 91.4 (80.0-100.0) fL MCH 29.0 (25.0-34.0) pg MCHC 31.8 L (32.0-36.0) g/dL RDW Std Deviation 47.4 H (36.4-46.3) fL RDW Coeff of Fausto 14.2 (11.5-14.5) % Plt Count 360 (130-400) K/uL MPV 9.0 L (9.4-12.4) fL Immature Gran % (Auto) 0.1 % Neut % (Auto) 48.4 % Lymph % (Auto) 39.7 % [place] % (Auto) 6.9 % Eos % (Auto) 4.5 % Baso % (Auto) 0.4 % Neut # (Auto) 3.36 (1.40-6.50) K/uL Lymph # (Auto) 2.76 (1.2-3.4) K/uL [place] # (Auto) 0.48 (0.11-0.59) K/uL Eos # (Auto) 0.31 (0-0.50) K/uL Baso # (Auto) 0.03 (0-0.2) K/uL Immature Gran # (Auto) 0.01 (0.01-0.20) K/uL ESR 55 H (0-15) mm/hr Sodium 136 (136-145) mmol/L Potassium 3.6 (3.5-5.1) mmol/L Chloride 104 (98-107) mmol/L Carbon Dioxide 27 (21-32) mmol/L Anion Gap 5 (3-11) BUN 5 L (6-23) mg/dl Creatinine 0.74 (0.6-1.4) mg/dl Est Cr Clr Drug Dosing Not Reportable Est GFR ( Amer) 130.9 ml/min Est GFR (Non-Af Amer) 113.0 ml/min BUN/Creatinine Ratio 6.8 L (10-20) Glucose 118 H (70-99(Fasting)) mg/dl Lactate (0.4-2.0) mmol/L Calcium 8.9 (8.6-10.3) mg/dl Magnesium 1.8 (1.7-2.4) mg/dl Total Bilirubin 0.2 (0.2-1.0) mg/dl Direct Bilirubin 0.0 (0-0.2) mg/dl AST 11 L (13-39) U/L ALT 9 (7-52) U/L Alkaline Phosphatase 72 (34-104) U/L Troponin I High Sens 2.9 (0-20) pg/ml C-Reactive Protein 2.39 H (0-0.5) mg/dl B-Natriuretic Peptide (0-100) pg/ml Total Protein 7.3 (6.0-8.3) gm/dl Albumin 3.9 (3.4-5.0) gm/dl Procalcitonin (0-0.5) ng/ml TSH (0.300-4.500) uIu/ml Salicylates (3.0-30) mg/dl Acetaminophen (10-30) ug/ml Ethyl Alcohol mg/dL (<10.0) mg/dl Lyme Disease IgG Ab (Negative) Lyme Disease IgM Ab (Negative) SARS-CoV-2, RNA, NAAT (NEGATIVE) 10/16/22 10/16/22 10/16/22 Range/Units 08:50 08:50 08:50 WBC (4.8-10.8) K/ul RBC (4.70-6.10) M/uL Hgb (14.0-18.0) g/dl Hct (42.0-52.0) % MCV (80.0-100.0) fL MCH (25.0-34.0) pg MCHC (32.0-36.0) g/dL RDW Std Deviation (36.4-46.3) fL RDW Coeff of Fausto (11.5-14.5) % Plt Count (130-400) K/uL MPV (9.4-12.4) fL Immature Gran % (Auto) % Neut % (Auto) % Lymph % (Auto) % [place] % (Auto) % Eos % (Auto) % Baso % (Auto) % Neut # (Auto) (1.40-6.50) K/uL Lymph # (Auto) (1.2-3.4) K/uL [place] # (Auto) (0.11-0.59) K/uL Eos # (Auto) (0-0.50) K/uL Baso # (Auto) (0-0.2) K/uL Immature Gran # (Auto) (0.01-0.20) K/uL ESR (0-15) mm/hr Sodium (136-145) mmol/L Potassium (3.5-5.1) mmol/L Chloride (98-107) mmol/L Carbon Dioxide (21-32) mmol/L Anion Gap (3-11) BUN (6-23) mg/dl Creatinine (0.6-1.4) mg/dl Est Cr Clr Drug Dosing Est GFR ( Amer) ml/min Est GFR (Non-Af Amer) ml/min BUN/Creatinine Ratio (10-20) Glucose (70-99(Fasting)) mg/dl Lactate 1.4 (0.4-2.0) mmol/L Calcium (8.6-10.3) mg/dl Magnesium (1.7-2.4) mg/dl Total Bilirubin (0.2-1.0) mg/dl Direct Bilirubin (0-0.2) mg/dl AST (13-39) U/L ALT (7-52) U/L Alkaline Phosphatase (34-104) U/L Troponin I High Sens (0-20) pg/ml C-Reactive Protein (0-0.5) mg/dl B-Natriuretic Peptide (0-100) pg/ml Total Protein (6.0-8.3) gm/dl Albumin (3.4-5.0) gm/dl Procalcitonin < 0.05 (0-0.5) ng/ml TSH 1.626 (0.300-4.500) uIu/ml Salicylates (3.0-30) mg/dl Acetaminophen (10-30) ug/ml Ethyl Alcohol mg/dL (<10.0) mg/dl Lyme Disease IgG Ab (Negative) Lyme Disease IgM Ab (Negative) SARS-CoV-2, RNA, NAAT (NEGATIVE) 10/16/22 10/16/22 10/16/22 Range/Units 08:50 09:08 09:08 WBC (4.8-10.8) K/ul RBC (4.70-6.10) M/uL Hgb (14.0-18.0) g/dl Hct (42.0-52.0) % MCV (80.0-100.0) fL MCH (25.0-34.0) pg MCHC (32.0-36.0) g/dL RDW Std Deviation (36.4-46.3) fL RDW Coeff of Fausto (11.5-14.5) % Plt Count (130-400) K/uL MPV (9.4-12.4) fL Immature Gran % (Auto) % Neut % (Auto) % Lymph % (Auto) % [place] % (Auto) % Eos % (Auto) % Baso % (Auto) % Neut # (Auto) (1.40-6.50) K/uL Lymph # (Auto) (1.2-3.4) K/uL [place] # (Auto) (0.11-0.59) K/uL Eos # (Auto) (0-0.50) K/uL Baso # (Auto) (0-0.2) K/uL Immature Gran # (Auto) (0.01-0.20) K/uL ESR (0-15) mm/hr Sodium (136-145) mmol/L Potassium (3.5-5.1) mmol/L Chloride (98-107) mmol/L Carbon Dioxide (21-32) mmol/L Anion Gap (3-11) BUN (6-23) mg/dl Creatinine (0.6-1.4) mg/dl Est Cr Clr Drug Dosing Est GFR ( Amer) ml/min Est GFR (Non-Af Amer) ml/min BUN/Creatinine Ratio (10-20) Glucose (70-99(Fasting)) mg/dl Lactate (0.4-2.0) mmol/L Calcium (8.6-10.3) mg/dl Magnesium (1.7-2.4) mg/dl Total Bilirubin (0.2-1.0) mg/dl Direct Bilirubin (0-0.2) mg/dl AST (13-39) U/L ALT (7-52) U/L Alkaline Phosphatase (34-104) U/L Troponin I High Sens (0-20) pg/ml C-Reactive Protein (0-0.5) mg/dl B-Natriuretic Peptide 27 (0-100) pg/ml Total Protein (6.0-8.3) gm/dl Albumin (3.4-5.0) gm/dl Procalcitonin (0-0.5) ng/ml TSH (0.300-4.500) uIu/ml Salicylates < 3.0 L (3.0-30) mg/dl Acetaminophen < 3 L (10-30) ug/ml Ethyl Alcohol mg/dL (<10.0) mg/dl Lyme Disease IgG Ab Negative (Negative) Lyme Disease IgM Ab Negative (Negative) SARS-CoV-2, RNA, NAAT (NEGATIVE) 10/16/22 10/16/22 Range/Units 09:08 09:13 WBC (4.8-10.8) K/ul RBC (4.70-6.10) M/uL Hgb (14.0-18.0) g/dl Hct (42.0-52.0) % MCV (80.0-100.0) fL MCH (25.0-34.0) pg MCHC (32.0-36.0) g/dL RDW Std Deviation (36.4-46.3) fL RDW Coeff of Fausto (11.5-14.5) % Plt Count (130-400) K/uL MPV (9.4-12.4) fL Immature Gran % (Auto) % Neut % (Auto) % Lymph % (Auto) % [place] % (Auto) % Eos % (Auto) % Baso % (Auto) % Neut # (Auto) (1.40-6.50) K/uL Lymph # (Auto) (1.2-3.4) K/uL [place] # (Auto) (0.11-0.59) K/uL Eos # (Auto) (0-0.50) K/uL Baso # (Auto) (0-0.2) K/uL Immature Gran # (Auto) (0.01-0.20) K/uL ESR (0-15) mm/hr Sodium (136-145) mmol/L Potassium (3.5-5.1) mmol/L Chloride (98-107) mmol/L Carbon Dioxide (21-32) mmol/L Anion Gap (3-11) BUN (6-23) mg/dl Creatinine (0.6-1.4) mg/dl Est Cr Clr Drug Dosing Est GFR ( Amer) ml/min Est GFR (Non-Af Amer) ml/min BUN/Creatinine Ratio (10-20) Glucose (70-99(Fasting)) mg/dl Lactate (0.4-2.0) mmol/L Calcium (8.6-10.3) mg/dl Magnesium (1.7-2.4) mg/dl Total Bilirubin (0.2-1.0) mg/dl Direct Bilirubin (0-0.2) mg/dl AST (13-39) U/L ALT (7-52) U/L Alkaline Phosphatase (34-104) U/L Troponin I High Sens (0-20) pg/ml C-Reactive Protein (0-0.5) mg/dl B-Natriuretic Peptide (0-100) pg/ml Total Protein (6.0-8.3) gm/dl Albumin (3.4-5.0) gm/dl Procalcitonin (0-0.5) ng/ml TSH (0.300-4.500) uIu/ml Salicylates (3.0-30) mg/dl Acetaminophen (10-30) ug/ml Ethyl Alcohol mg/dL < 10.0 (<10.0) mg/dl Lyme Disease IgG Ab (Negative) Lyme Disease IgM Ab (Negative) SARS-CoV-2, RNA, NAAT NEGATIVE (NEGATIVE) Imaging Data Attestation: I personally reviewed and interpreted this imaging study as follows: My Impression: Chest x-ray No acute infiltrate, failure, or pneumothorax Left knee x-rayno bony abnormality. Radiologist's Impression: Chest X-Ray 10/16/22 08:40 XR chest 1V portable HISTORY: Sepsis COMPARISON: Chest 09/26/2022. FINDINGS: No pneumothorax. No pleural effusions. The lungs are clear. No acute fractures identified. There is borderline enlargement the cardiac silhouette. T his may be accentuated by the AP portable te[place]. IMPRESSION: Borderline enlargement of the cardiac silhouette which may be accentuated by the technique. Otherwise, no acute process within the chest. ACT 112: Negative or not required by law. Electronically signed by: Mingo Aguilar M.D. 10/16/2022 9:14 AM Knee X-Ray 10/16/22 08:40 LEFT KNEE 2 VIEWS HISTORY: left knee pain COMPARISON: None. FINDINGS: There is no fracture or dislocation. Soft tissues are unremarkable. No radiopaque foreign bodies. No knee effusion. IMPRESSION: No fracture or dislocation within the left knee. ACT 112: Negative or not required by law. Electronically signed by: Mingo Aguilar M.D. 10/16/2022 9:12 AM ECG Data Attestation: I personally reviewed and interpreted this ECG as follows: Indication: + weakness Rate (beats per minute): 66 Rhythm: + normal sinus ECG Intervals/blocks: + Normal QRS, + Normal QT and + Normal OK ECG [place]: + Normal ECG ST segments: + repolarization abnormalities ECG Findings: no PACs or no PVCs Comparison ECG Date: from (09/26/22) Change: no significant change (The repolarization changes are old. I looked back through several EKGs.) MDM Narrative This patient is a 42-year-old male who has a history of paranoid schizophrenia as well as recent hospitalization about a month ago for perirectal abscess, comes in with left knee pain he was noted to be hypotensive and felt dizzy nausea and faint on the way up here. He denies any other complaints the knee itself is not red or warm there is no calf tenderness. He is neurologically neurovascular intact distally. Given his hypotension I did full sepsis type wo rk-up he was given a 500 cc normal saline bolus. 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 His lungs are clear thus far. Blood cultures multiple blood testing lactic acid were also obtained. X-ray of the chest and knee was obtained as well. He was reassessed frequently. EKG shows early repolarization changes but no ischemic changes. Chest x-ray was clear and does not appear to be in congestive heart failure pneumonia or pneumothorax. X-ray of the knee does not show any bony abnormalities. Lactic acid and white count are both within normal limits which would go against infection. He has baseline anemia which actually looks slightly better than before. He has no electrolyte or metabolic abnormalities. His Lyme titer was negative. He seems to doing better but given his hypotension, recent complicated history and his schizophrenia I am concerned about sending him home I do think he would benefit from observation. I have consulted and discussed the case with Dr. Julio from [facility] team and they will see him in the ER for these measures. Continuous telemetry monitor: Orders placed in EMR for continuous cardiac monitoring: Upon my evaluation patient noted to be in normal sinus rhythm with a rate of 83 Impression & Plan Hypotension, Paranoid schizophrenia, Knee pain, left, Lab test negative for COVID-19 virus Discharge Plan Visit Data Chief Complaint: Illness Stated Complaint: LEFT KNEE PAIN ED Provider: Aleks Bryant Discharge Problem: Hypotension, Paranoid schizophrenia, Knee pain, left, Lab test negative for COVID-19 virus Patient Disposition: Admitted As Inpatient Discharge Instructions Interventions: ED Discharge Assessment Last Done: 10/16/22 11:12
--- NOTE | 2022-10-16 09:13 | XRay Report ---
LEFT KNEE 2 VIEWS HISTORY: left knee pain COMPARISON: None. FINDINGS: There is no fracture or dislocation. Soft tissues are unremarkable. No radiopaque foreign b odies. No knee effusion. IMPRESSION: No fracture or dislocation within the left knee. ACT 112: Negative or not required by law. Electronically signed by: Mingo Aguilar M.D. 10/16/2022 9:12 AM
--- NOTE | 2022-10-16 09:15 | XRay Report ---
XR chest 1V portable HISTORY: Sepsis COMPARISON: Chest 09/26/2022. FINDINGS: No pneumothorax. No pleural effusions. The lungs are clear. No acute fractures identified. There is borderline enlargement the cardiac silhouette. This may be accentuated by the AP portable te [place]. IMPRESSION: Borderline enlargement of the cardiac silhouette which may be accentuated by the technique. Otherwise , no acute process within the chest. ACT 112: Negative or not required by law. Electronically signed by: Mingo Aguilar M.D. 10/16/2022 9:14 AM
[2022-10-16 09:22] LABS: Basophils # (auto) 0.03 K/uL (0-0.2); Basophils % (auto) 0.4 %; Eosinophils # (auto) 0.31 K/uL (0-0.50); Eosinophils % (auto) 4.5 %; Hematocrit (blood only) 36.2 % (42.0-52.0); Hemoglobin 11.5 g/dl (14.0-18.0); Immature Granulocytes # (auto) 0.01 K/uL (0.01-0.20); Immature Granulocytes % (auto) 0.1 %; Lymphocytes # (auto) 2.76 K/uL (1.2-3.4); Lymphocytes % (auto) 39.7 %; Mean Corpuscular Hgb Conc 31.8 g/dL (32.0-36.0); Mean Corpuscular Volume 91.4 fL (80.0-100.0); Monocytes # (auto) 0.48 K/uL (0.11-0.59); Monocytes % (auto) 6.9 %; Neutrophils # (auto) 3.36 K/uL (1.40-6.50); Neutrophils % (auto) 48.4 %; Platelet Count 360 K/uL (130-400); RDW Coefficient of Variation 14.2 % (11.5-14.5); RDW Standard Deviation 47.4 fL (36.4-46.3); Red Blood Count 3.96 M/uL (4.70-6.10); White Blood Count 6.95 K/ul (4.8-10.8)
[2022-10-16 09:32] LABS: Alanine Aminotransferase 9 U/L (7-52); Albumin Level 3.9 gm/dl (3.4-5.0); Alkaline Phosphatase 72 U/L (34-104); Anion Gap 5 (3-11); Aspartate Aminotransferase 11 U/L (13-39); BUN Creatinine Ratio 6.8 (10-20); Bilirubin,Total 0.2 mg/dl (0.2-1.0); Blood Urea Nitrogen 5 mg/dl (6-23); Calcium 8.9 mg/dl (8.6-10.3); Carbon Dioxide 27 mmol/L (21-32); Chloride 104 mmol/L (98-107); Est GFR (African American) 130.9 ml/min; Glucose 118 mg/dl (70-99(Fasting)); Magnesium 1.8 mg/dl (1.7-2.4); Potassium 3.6 mmol/L (3.5-5.1); Sodium 136 mmol/L (136-145); Total Protein 7.3 gm/dl (6.0-8.3)
[2022-10-16] MEDS ORDERED: KETOROLAC TROMETHAMINE 15 MG/ML VIAL IV ONE (09:35)
[2022-10-16 09:36] LABS: Acetaminophen < 3 ug/ml (10-30); Salicylate < 3.0 mg/dl (3.0-30)
[2022-10-16 09:39] LABS: Troponin I High Sensitivity 2.9 pg/ml (0-20)
[2022-10-16] MEDS ORDERED: SODIUM CHLORIDE 0.9% 500 ML IV ONE (10:24)
[2022-10-16 10:25] LABS: C Reactive Protein 2.39 mg/dl (0-0.5)
[2022-10-16] MEDS ORDERED: MAGNESIUM HYDROXIDE SUSP 30 ML UDC PO PRN (10:40)
[2022-10-16] MEDS ORDERED: POLYETHYLENE (MIRALAX) 17 GM PACK PO PRN (10:40)
[2022-10-16] MEDS ORDERED: ACETAMINOPHEN 325 MG TAB PO PRN (10:40)
[2022-10-16] MEDS ORDERED: ONDANSETRON INJ 2 MG/ML 2 ML VIAL IV PRN (10:40)
[2022-10-16] MEDS ORDERED: ALUMINUM/MAGNESIUM SUSP 30 ML UDC PO PRN (10:40)
--- NOTE | 2022-10-16 10:46 | Electrocardiogram Report ---
Test Reason : Blood Pressure : / mmHG Vent. Rate : 066 BPM Atrial Rate : 066 BPM P-R Int : 168 ms QRS Dur : 088 ms QT Int : 406 ms P-R-T Axes : 013 056 057 degrees QTc Int : 425 ms Normal sinus rhythm Early repolarization Normal ECG When compared with ECG of 26-SEP-2022 20:08, Vent. rate has decreased BY 44 BPM Confirmed by Romel Robles ([id number]) on 10/16/2022 10:46:38 AM Referred By: REFERRED SELF Confirmed By:Romel Robles
--- NOTE | 2022-10-16 10:48 | History & Physical Report ---
Date of Service October 16, 2022 Assessment & Plan (1) Knee pain, left: (2) Hypotension: (3) Idiopathic peripheral neuropathy: (4) Ataxia: (5) Perirectal abscess: (6) Paranoid schizophrenia: (7) Tobacco use disorder: (8) Depression: Plan 42 year old that presents with L knee pain, intermittent dizziness, worsening ataxia and hypotension. SBP 70's baseline 90-110. Patient with idiopathic peripheral neuropathy (follows with Carmen Adam), recent perirectal abscess with admission in July 2022 at [facility] for I/D (healing as outlined below) and paranoid schizophrenic (On Abilify). No leukocytosis, CRP elevated 2.39, Lactate 1.4, Procalcitonin negative, BNP 27. Recent outpatient labs from August 2022 include: Vitamin B12, SLE negative, Lyme negative (10/12). Last ECHO 06/2021: EF 55-60%, LV wall motion normal, mild LVH; obtain ECHO today, ortho BPs, and T- spine MRI. Left Knee pain: CRP 2.39; CRP in August No leukocytosis medial swelling compared to right, but nothing too appreciated. Knee X-ray negative for acute fractures Ketorolac in ED; provided relief; continue PRN Hypotension: 500mL NSB x2 in ED; reassess; showing improvement with BP 80 SBP --> 115 History of cardiomegaly; gentle fluid resuscitation Last ECHO 06/2021: EF 55-60%, LV wall motion normal, mild LVH; worth repeating while here to eval for any changes Orthostatic BPs ordered Newly prescribed short term prescription of Ativan for depression/anxiety; may be contributing to hypotension; hold while inpt No leukocytosis Lactate 1.4 Procal negative Pending results of ECHO and ortho BP consider Cardiology consultation. Idiopathic peripheral neuropathy: Ataxia: Follows with Dr. Calle and Carmen Adam worsening over the past few months leading to worsening ataxia No recent falls or trauma Extensive work up as OPT 09/17 SLE negative, Hep B negative, Vitamin B12 379 PT/OT Was planned for T-spine MRI today as OPT; will obtain while inpt takes Vitamin B-12; continue Consider inpatient Neuro eval pending MRI results or worsening of symptoms Perirectal abscess: Recent admit at [facility] 08/12-08/17 underwent I/D discharged to [facility] for inpatient acute rehab. He returned home on 08/31/22 and through his stay completed a course of Augmentin and Bactrim. He reports that he has been generally weak since then Follows with Dr. Richardson for f/u; recent f/u 09/21 for jony drain removal; plan for f/u on 10/22 No signs of erythema or tenderness at site Paranoid schizophrenic: Depression: Follows with Nancy ROJO with [facility] Psych Last Telemedicine appt 10/04 No SI/SA, visual or auditory hallucinations Father not being home is a stressor for him Newly prescribed short term prescription of Ativan; may be contributing to hypotension; hold while inpt Consider intellect challenges; nothing documented as outpatient. Flat affect Currently on disability Tobacco Use Disorder: 1/2-1ppd of cigarettes for the past year. Prior to that, he smoked nearly 6-8 cigarettes per day. Declines Nicotine patch Disposition: PCP: Dr. Agrawal Code Status: Full Code VTE Prophylaxis: Lovenox SQ I spent a total of 87 minutes coordinating, documenting, and providing care for this patient excluding time spent in the performance of separately billed services. All of the aforementioned completed while collaborating with the assigned attending physician for a full treatment plan. Please see their addendum for further details. History of Present Illness Chief Complaint: left knee pain/hypotension Primary Care Provider: Kenneth Agrawal DO Mr. Schroeder is a 42 year old male that presents to the [facility] ED today with complaints of left knee pain. Tuesday morning he woke up in the morning and could not straighten his leg. He did notify his home health nurse about the worsening numbness. Additionally, He has complaints of positional dizziness that has occurred intermittently over the past few months. He has been following with Dr. Calle and Carmen Adam for idiopathic peripheral neuropathy that has been worsening over the past few months leading to worsening ataxia; although he denies having any recent falls or trauma. He denies any recent fever, chills or recent illness outside of his hospitalization in July as outline below. In the ED; he was found to be hypotensive; SBP 77. Per EMR records, his baseline BP is soft; running in the high 90's low 100's systolically. Patient had a recent admission at [facility] 08/12-08/17 for management of a perirectal abscess and necrotizing fascitis for which he underwent I/D and was discharged to [facility] for inpatient acute rehab. He returned home on 08/31/22 and through his stay completed a course of Augmentin and Bactrim. He reports that he has been generally weak since then. Pt has quite poor oral dentition with numerous dental caries and missing teeth; nearly his entire top oral cavity without teeth. He reports they fell out naturally without being pulled. He reports smoking 1/2-1ppd of cigarettes for the past year. Prior to that, he smoked nearly 6-8 cigarettes per day. 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 He also drinks two Ensure's per day. No leukocytosis, CRP elevated 2.39, Lactate 1.4, Procalcitonin negative, BNP 27. Recent outpatient labs from August 2022 include: Vitamin B12, SLE negative, Lyme negative (10/12). knee xray negative. Patient follows with Nancy ROJO with psych and had a recent telemedicine consultation this month. He is stable and compliant with his Abilify. He denies SI/SA, manic episodes, visual or auditory hallucinations at his most recent appt. PMH includes perirectal abscess, paranoid schizophrenia, protein malnourishment, and depression. Last ECHO 06/2021: EF 55-60%, LV wall motion normal, mild LVH. Pt denies CLINE, recent illness, blurry or double vision, SOB, chest pain, N/V/D, recent falls or trauma. He does report B/L LE numbness and tingling in his left lower extremity, his mouth and his upper back. On exam, patient lying in his hospital be in no apparent distress. He was able to follow all commands and answer questions appropriately. His perrectal abscess does not have any erythema at site or drainage. He is able to wiggle his toes, left his left leg off of the bed, his left knee does have medial swelling compared to right, but nothing too appreciated. Patient will be admitted for further evaluation and management. Please see A/P for further details. Allergies Allergy/AdvReac Type Severity Reaction Status Date / Time Penicillins Allergy Severe Rash Verified 09/28/22 21:10 cefepime Allergy Intermediate lip Verified 09/28/22 21:10 swelling Home Medications Medication Instructions Recorded Confirmed Type aripiprazole 10 mg tablet 10 mg PO QAM 08/11/22 10/16/22 History albuterol sulfate 90 mcg/actuation 2 puff inhalation Q6 PRN 09/28/22 10/16/22 History aerosol inhaler cough,SOB,wheezing cyanocobalamin (vitamin B-12) 1,000 mcg PO DAILY 09/28/22 10/16/22 History 1,000 mcg tablet lorazepam 1 mg tablet 1 mg PO Q8H PRN anxiety #12 tabs 09/28/22 10/16/22 Rx thiamine HCl (vitamin B1) 100 mg 100 mg PO QAM 09/28/22 10/16/22 History tablet hydroxyzine HCl 50 mg tablet 50 mg PO Q8H PRN Anxiety 10/16/22 10/16/22 History Past Med/Surg History Medical History (Updated 10/16/22 @ 16:03 by Aelks Bryant MD) Anemia Ataxia Critical illness myopathy Depression Hidradenitis suppurativa Idiopathic peripheral neuropathy Paranoid schizophrenia Perirectal abscess Tobacco use disorder Weakness Surgical History History of incision and drainage Family History Other Cancer Denies family history of Schizophrenia Social History Smoking Status: Current every day smoker Tobacco Type: Cigarettes packs per day: 0.5; Cigarettes Per Day: 10; Second Hand Exposure: No; Do You Dip or Chew Tobacco: No; Tobacco Cessation Education Requested by Patient: No Hx Alcohol Use: No Hx Substance Use: No Preferred Language: Jordanian Communication Ability: Effective Visual Impairment: No Limitations Hearing Ability: Normal Pot Sander Required: No Beliefs That Will Affect Care: None marital status: Single Current Living Situation: Family Current Living Situation Comment: lives with father current occupational status: disabled How many Children do You have: 0 Feels Safe at Home: Yes Safety Concerns: Feels Safe At This Time Diet: regular during the past year weight has: remained stable Gender Identity: Male Assistive Devices: Cane and Walker Assistive Devices Comment: shower chair Review of Systems Review of Systems: Neuro: (-) Falls, trauma, slurred speech HEENT: (-) CLINE, dizziness, dysphagia, visual or auditory changes CV: (-) CP, palpitations (-) CV swelling Resp: (-) SOB GI: (-) appetite changes, N/V/D, bowel changes : (-) urinary changes Skin: (-) rashes (+) left knee medial swelling Psych: (+) anxiety, depression Physical Exam Physical Exam: Neuro: AAOx4, PERRLA, no aphagia, memory changes, CNII-XII grossly intact HEENT: head normocephalic, moist mucus membranes. Numerous dental caries and missing dentition CV: S1/S2, (-) M/G/R, (-) edema, cap refill < 3 seconds Resp: Lungs CTA in all erazo. On RA GI: Abdomen S/NT/ND, Ax4 bowel sounds, (-) CVA tenderness Musculoskeletal: 5/5 B/L UE strength, 5/5 B/L LE strength. Uses a cane to walk Psych: Flat affect Results & Data Results & Data Vital Signs (Past 12 Hours) Vital Signs Temp Pulse Pulse Resp BP BP Pulse Ox 10/16/22 10:00 59 L 16 93/61 L 100 10/16/22 09:30 63 20 110/79 98 10/16/22 09:00 63 19 104/71 100 10/16/22 08:40 10/16/22 08:44 81 10/16/22 08:21 36.4 C L 54 L 14 77/47 L 97 O2 Del Method 10/16/22 10:00 Room Air 10/16/22 09:30 Room Air 10/16/22 09:00 Room Air 10/16/22 08:40 Room Air 10/16/22 08:44 10/16/22 08:21 Room Air Laboratory Results Short CBC 10/16/22 Range/Units 08:50 WBC 6.95 (4.8-10.8) K/ul Hgb 11.5 L (14.0-18.0) g/dl Hct 36.2 L (42.0-52.0) % Plt Count 360 (130-400) K/uL BMP 10/16/22 08:50 Sodium 136 Potassium 3.6 Chloride 104 Carbon Dioxide 27 BUN 5 L Creatinine 0.74 Glucose 118 H Calcium 8.9 Liver Function 10/16/22 Range/Units 08:50 Total Bilirubin 0.2 (0.2-1.0) mg/dl Direct Bilirubin 0.0 (0-0.2) mg/dl AST 11 L (13-39) U/L ALT 9 (7-52) U/L Alkaline Phosphatase 72 (34-104) U/L Albumin 3.9 (3.4-5.0) gm/dl Diagnostic Findings Chest X-Ray 10/16/22 08:40 XR chest 1V portable HISTORY: Sepsis COMPARISON: Chest 09/26/2022. FINDINGS: No pneumothorax. No pleural effusions. The lungs are clear. No acute fractures identified. There is borderline enlargement the cardiac silhouette. This may be accentuated by the AP portable te[place]. IMPRESSION: Borderline enlargement of the cardiac silhouette which may be accentuated by the technique. Otherwise, no acute process within the chest. ACT 112: Negative or not required by law. Electronically signed by: Mingo Aguilar M.D. 10/16/2022 9:14 AM Knee X-Ray 10/16/22 08:40 LEFT KNEE 2 VIEWS HISTORY: left knee pain COMPARISON: None. FINDINGS: There is no fracture or dislocation. Soft tissues are unremarkable. No radiopaque foreign bodies. No knee effusion. IMPRESSION: No fracture or dislocation within the left knee. ACT 112: Negative or not required by law. Electronically signed by: Mingo Aguilar M.D. 10/16/2022 9:12 AM ECG Additional Comments: Normal Sinus Rhythm. Vent. Rate : 066 BPM Atrial Rate : 066 BPM P-R Int : 168 ms QRS Dur : 088 ms QT Int : 406 ms P-R-T Axes : 013 056 057 degrees QTc Int : 425 ms Code Status & VTE Plan Code Status Full Code in the event of cardiac or respiratory arrest VTE Prophylaxis Plan VTE Prophylaxis will be ordered: Yes Supervising Physician Co-Signing Physician Notes I have seen and examined the patient and have discussed the case with the provider above. I agree with the assessment and plan as stated with the following exceptions. 42-year-old man presenting with left knee pain. Patient has a history of paranoid schizophrenia and possible intellectual delay. He denies any trauma to his knee. We were called for admission because a blood pressure of 77/47 was seen in triage. Blood pressure responded well to IV fluids. On outpatient k[address] review his blood pressure is low normal and has been tracked in the 90s systolic. Patient denies any symptoms of lightheadedness chest pain or shortness of breath. On physical exam he is well-nourished, and well-developed. He has poor dentition with decaying teeth and many are missing. Cardiovascular exam is unremarkable. His gait was not assessed. Left knee exam reveals tenderness to palpation in the anteromedial knee. There is no evidence of effusion or bowel loading. There is full range of motion although this is somewhat guarded secondary to pain. There is no external wound superficially. No gross focal neurologic deficits. Lab work reviewed includes a CBC with baseline anemia, H&H is 11.5/36. ESR is 55, CHEM panel is within normal limits. Lactate is normal. CRP is 2.39. Vitamin D is 7.8. Negative procalcitonin normal TSH. He had been prescribed benzodiazepines recently so urine toxicity was ordered to see if this may have contributed to blood pressure being lower on admission. There is no evidence of benzo use per drug screen. Lyme panel was negative. Knee x-ray reveals no fracture or dislocation within the left knee 1. Hypotension 2. Left knee pain 3. Paranoid schizophrenia 4. Smoker 5. Vitamin D deficiency Patient responded well to IV fluid bolus. We will continue to monitor blood pressure overnight and ensure no development of worsening hypotension or possible sepsis picture. Continue pain medicine for left knee trivedi as described above. Patient was strongly advised to quit smoking. Vitamin D replacement was started. DO Sumanth (8) Depression Depression Type: unspecified Qualified Code(s): F32.9 - Major depressive disorder, single episode, unspecified
[2022-10-16 12:58] LABS: Lyme Ab IgG w/WB Rflx Negative (Negative); Lyme Ab IgM w/WB Rflx Negative (Negative)
[2022-10-16] MEDS ORDERED: GADOBUTROL 30ML VIAL IV ONE (13:47)
[2022-10-16] MEDS: KETOROLAC TROMETHAMINE 15 MG/ML VIAL IV SCH ×3 (16:22→21:58)
[2022-10-16 17:02] LABS: Appearance Urine Clear (Clear); Bacteria Urine Automated Negative (Negative); Bilirubin Urine Negative (Negative); Blood Urine Negative (Negative); Color Urine Dark Yellow; Epithelial Cell Urine Auto >30 /lpf (0-5); Glucose Urine UA Negative (Negative); Ketones Urine Negative (Negative); Leukocyte Esterase Urine Negative (Negative); Nitrite Urine Negative (Negative); Protein Urine 1+ (Negative); Specific Gravity Urine 1.033 (1.000-1.030); Urobilinogen Urine Negative (Negative)
--- NOTE | 2022-10-16 17:18 | Magnetic Resonance Report ---
THORACIC SPINE MRI WITH AND WITHOUT CONTRAST HISTORY: Weakness in the old extremities. idiopathic peripheral neuropathy TECHNIQUE: Multiplanar multisequence MRI of the thoracic spine was performed both before and after th e intravenous administration of contrast. COMPARISON: None. FINDINGS: There is normal marrow signal intensity seen throughout the visualized osseous structures of the thor acic spine. No fracture or subluxation. Disc spaces are preserved for age. No disc herniations. No si gnificant central canal or neural foraminal narrowing. No epidural or paraspinal masses. No fluid col lections identified. There is a 4 mm left renal cyst noted. Postcontrast sequences show no areas of a bnormal enhancement. The thoracic spinal cord is normal in course and caliber. Questionable increased T2 signal within the dorsal columns of the thoracic spinal cord only seen on the axial views. This i s not confirmed on the sagittal views. This could be due to motion artifact. Subacute combined degene ration of the spinal cord could also have a similar appearance. Clinical correlation recommended. IMPRESSION: Questionable increased T2 signal within the dorsal columns of the thoracic spinal cord only seen on t he axial views. This is not confirmed on the sagittal views and therefore could be due to the motion artifact. Subacute combined degeneration of the spinal cord could also have a similar appearance. Cli nical correlation recommended. ACT 112: Negative or not required by law. Electronically signed by: Mingo Aguilar M.D. 10/16/2022 5:15 PM
[2022-10-16 17:28] LABS: Amphetamines+Metham, Urine Neg (Neg); Barbiturates, Urine Neg (Neg); Benzodiazepine, Urine Neg (Neg); Cocaine, Urine Neg (Neg); MDMA (Ecstacy), Urine Neg (Neg); Methadone, Urine Neg (Neg); Opiate, Urine Neg (Neg); Phencyclidine, Urine Neg (Neg)
[2022-10-17] MEDS: KETOROLAC TROMETHAMINE 15 MG/ML VIAL IV SCH ×2 (03:50→08:54)
[2022-10-17] MEDS: CYANOCOBALAMIN (B-12) 500 MCG TABLET PO SCH (08:10)
[2022-10-17] MEDS: ARIPiprazole 10 MG TAB PO SCH (08:10)
[2022-10-17] MEDS: ENOXAPARIN INJ 40 MG/0.4 ML SYR SQ SCH (08:10)
[2022-10-17] MEDS: THIAMINE HCL 100 MG TAB PO SCH (08:10)
[2022-10-17 08:53] LABS: Hematocrit (blood only) 34.9 % (42.0-52.0); Hemoglobin 11.1 g/dl (14.0-18.0); Mean Corpuscular Hemoglobin 28.6 pg (25.0-34.0); Mean Corpuscular Hgb Conc 31.8 g/dL (32.0-36.0); Mean Corpuscular Volume 89.9 fL (80.0-100.0); Platelet Count 346 K/uL (130-400); RDW Coefficient of Variation 14.2 % (11.5-14.5); RDW Standard Deviation 46.5 fL (36.4-46.3); Red Blood Count 3.88 M/uL (4.70-6.10); White Blood Count 7.38 K/ul (4.8-10.8)
[2022-10-17] MEDS: SODIUM CHLORIDE 0.9% 1000ML 1,000 ML IV SCH ×2 (08:54→21:47)
[2022-10-17] MEDS ORDERED: ERGOCALCIFEROL 50,000 UNITS 1250 MCG CAP PO SCH (09:00)
[2022-10-17 09:02] LABS: BUN Creatinine Ratio 16.4 (10-20); Calcium 8.7 mg/dl (8.6-10.3); Creatinine Clr Calc Pharmacy 126.6 ml/min; Est GFR (African American) 131.7 ml/min; Est GFR (Non-African American) 113.6 ml/min; Magnesium 1.9 mg/dl (1.7-2.4); Phosphorus 3.6 mg/dl (2.5-4.9); Potassium 3.7 mmol/L (3.5-5.1)
--- NOTE | 2022-10-17 09:53 | Neurology Consultation ---
Date of Consultation October 17, 2022 Assessment & Plan (1) Idiopathic peripheral neuropathy: MRI L-spine is consistent and significantly improved from the changes seen on the MRI from Jun 2021. Suspect this is residual scaring of the cord and his symptoms worsened by his hospitalization 3 months ago. Lab testing done through [facility] has been extensive. I have nothing to add. He can continue his outpatient follow-up plan. Telehealth Consultation Telehealth Information Telehealth Information: I performed this visit using a real-time telehealth connection between my location and the patients location ([facility]). After connecting through interactive tele-video, patient was identified by name and date of and/or wristband check.Patient (or authorized healthcare field representative/health education) was informed that this was a telemedicine visit and it was being conducted confidentially over secure lines. My office door was closed and no one else was present in the room with me.Patient (or authorized healthcare field representative/health education) provided consent to proceed with the visit, expressed an understanding of privacy and security of the telemedicine visit, and gave permission to have a hospital field representative/health education in the room in order to assist with the visit and to conduct portions of the visit, as needed. I informed the patient (or authorized healthcare field representative/health education) that I reviewed their record and presented the opportunity for them to ask any questions regarding the visit today. The patient agreed to participate. History of Present Illness Reason for Consultation: MRI abnormality Requesting Physician: Dr. Rodriguez Attending Physician: Ander Rodriguez MD History of Present Illness Gurpreet Schroeder is a 42 yo M presenting with knee pain but followed by outpatient neurology for gait ataxia secondary to an idiopathic neuropathy/myelopathy. He reports that he initially became ataxic a year ago, records and images in the [facility] system were reviewed and reveal extensive spinal cord/posterior column changes at that time. He slowly recovered but continued to have mild difficulty until a recent admission for septic shock 3 months ago when the symptoms worsened again. An MR of the T spine was obtained as he missed his outpatient radiology appointment due to this hospitalization. Allergies Allergy/AdvReac Type Severity Reaction Status Date / Time Penicillins Allergy Severe Rash Verified 09/28/22 21:10 cefepime Allergy Intermediate lip Verified 09/28/22 21:10 swelling Home Medications Medication Instructions Recorded Confirmed Type aripiprazole 10 mg tablet 10 mg PO QAM 08/11/22 10/16/22 History albuterol sulfate 90 mcg/actuation 2 puff inhalation Q6 PRN 09/28/22 10/16/22 History aerosol inhaler cough,SOB,wheezing cyanocobalamin (vitamin B-12) 1,000 mcg PO DAILY 09/28/22 10/16/22 History 1,000 mcg tablet lorazepam 1 mg tablet 1 mg PO Q8H PRN anxiety #12 tabs 09/28/22 10/16/22 Rx thiamine HCl (vitamin B1) 100 mg 100 mg PO QAM 09/28/22 10/16/22 History tablet hydroxyzine HCl 50 mg tablet 50 mg PO Q8H PRN Anxiety 10/16/22 10/16/22 History Patient History Medical History (Updated 10/16/22 @ 16:03 by Aleks Bryant MD) Anemia Ataxia Critical illness myopathy Depression Hidradenitis suppurativa Idiopathic peripheral neuropathy Paranoid schizophrenia Perirectal abscess Tobacco use disorder Weakness Surgical History History of incision and drainage Family History Other Cancer Denies family history of Schizophrenia Social History Smoking Status: Current every day smoker Tobacco Type: Cigarettes packs per day: 0.5; Cigarettes Per Day: 10; Second Hand Exposure: No; Do You Dip or Chew Tobacco: No; Tobacco Cessation Education Requested by Patient: No Hx Alcohol Use: No Hx Substance Use: No Preferred Language: Omani Communication Ability: Effective Visual Impairment: No Limitations Hearing Ability: Normal Jet Engine 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 Oriented to person, place, and time. Fluent with mild dysarthria. Comprehension intact. Affect appropriate. Cranial Nerves: II: pupils 3/3 to 2/2, erazo grossly intact. III/IV/: Versions intact without nystagmus, no gaze preference. V: Facial sensation symmetric to light touch VII: Facial expression symmetric VIII: Hearing intact to voice IX/X: Palate elevates symmetrically XI: Shoulder shrug symmetric XII: Tongue midline Motor: Strength was symmetric and antigravity throughout. There were no abnormal movements. Sensory: Sensation to light touch was reduced throughout Coordination: Finger to nose and heel to albert were dysmetric. Reflexes: Unable to assess over telemedicine Results & Data Vital Signs (Past 12 Hours) Vital Signs Temp Pulse Pulse Pulse Resp BP BP 10/17/22 08:00 36.5 C 60 17 110/68 10/17/22 07:30 10/17/22 05:56 62 10/17/22 03:05 37.7 C H 58 L 18 109/67 10/16/22 23:28 57 L 10/16/22 23:21 36.9 C 60 18 115/73 Pulse Ox O2 Del Method 10/17/22 08:00 94 Room Air 10/17/22 07:30 Room Air 10/17/22 05:56 10/17/22 03:05 95 Room Air 10/16/22 23:28 10/16/22 23:21 95 Room Air Laboratory Results Abnormal lab results 10/16/22 10/16/22 10/16/22 Range/Units 08:40 08:50 08:50 RBC (4.70-6.10) M/uL Hgb (14.0-18.0) g/dl Hct (42.0-52.0) % MCHC (32.0-36.0) g/dL RDW Std Deviation (36.4-46.3) fL MPV (9.4-12.4) fL ESR 55 H (0-15) mm/hr C-Reactive Protein 2.39 H (0-0.5) mg/dl 25-OH Vitamin D Total 7.8 L (30-100) ng/ml Ur Specific Edmonds (1.000-1.030) Urine Protein (Negative) Urine RBC (Auto) (0-4) /hpf U Hyaline Cast (Auto) (0-5) /lpf U Epithel Cells (Auto) (0-5) /lpf 10/16/22 10/17/22 Range/Units 16:45 08:28 RBC 3.88 L (4.70-6.10) M/uL Hgb 11.1 L (14.0-18.0) g/dl Hct 34.9 L (42.0-52.0) % MCHC 31.8 L (32.0-36.0) g/dL RDW Std Deviation 46.5 H (36.4-46.3) fL MPV 9.0 L (9.4-12.4) fL ESR (0-15) mm/hr C-Reactive Protein (0-0.5) mg/dl 25-OH Vitamin D Total (30-100) ng/ml Ur Specific [place] 1.033 H (1.000-1.030) Urine Protein 1+ H (Negative) Urine RBC (Auto) 5-10 H (0-4) /hpf U Hyaline Cast (Auto) 10-30 H (0-5) /lpf U Epithel Cells (Auto) >30 H (0-5) /lpf Diagnostic Findings MR L-spine - posterior column T2 hyperintensity
--- NOTE | 2022-10-17 14:29 | Hospitalist Progress Note ---
Date of Service October 17, 2022 Assessment & Plan (1) Knee pain, left: (2) Hypotension: (3) Idiopathic peripheral neuropathy: (4) Ataxia: (5) Perirectal abscess: (6) Paranoid schizophrenia: (7) Tobacco use disorder: (8) Depression: Plan 42 year old that presents with L knee pain to ED and called us to admit for low BP (77/47) at triage. Baseline BP seems to be low normal. Patient with idiopathic peripheral neuropathy (follows with Carmen Adam), recent perirectal abscess with admission in July 2022 at [facility] for I/D (healing as outlined below) and paranoid schizophrenic (On Abilify). At admission, no leukocytosis, CRP elevated 2.39, Lactate 1.4, Procalcitonin negative, BNP 27. Recent outpatient labs from August 2022 include: Vitamin B12, SLE negative, Lyme negative (10/12). Last ECHO 06/2021: EF 55-60%, LV wall motion normal, mild LVH. He is being managed for the following: Left Knee pain: No leukocytosis, no disproportionate pain at palpation and ROM at left knee/no swelling notedd. Knee X-ray negative for acute fractures Ketorolac in ED provided relief; continue PRN, can use voltaren gel. Hypotension: 77/47 at triage, s/p 500mL NSB x2 in ED; improved BP during reassessment Last ECHO 06/2021: EF 55-60%, LV wall motion normal, mild LVH; worth repeating while here to eval for any changes At admission: No leukocytosis, Lactate 1.4, Procal negative 10/17 ECHO: EF 55-60%, RV and LV systolic fxn nl. Lt atrial size nl. Orthostatic BPs neg. Urine tox screen was negative at admisison. Newly prescribed short term prescription of Ativan for depression/anxiety; may be contributing to hypotension; hold while inpt BP fairly better today, pt w/ decreased urine output, will continue with ivf today. pt w/ poor po fluid intake per rn. Idiopathic peripheral neuropathy: Ataxia: Follows with Dr. Calle and Carmen Adam worsening over the past few months leading to worsening ataxia No recent falls or trauma Extensive work up as OPT, Admitting MRI thoracic spine reviewed. 09/17 SLE negative, Hep B negative, Vitamin B12 379 PT/OT takes Vitamin B-12; continue d/w neuro, f/u w/ neuro as OP. Perirectal abscess: Recent admit at [facility] 08/12-08/17 underwent I/D discharged to [facility] for inpatient acute rehab. He returned home on 08/31/22 and through his stay completed a course of Augmentin and Bactrim. He reports that he has been generally weak since then Follows with Dr. Richardson for f/u; recent f/u 09/21 for jony drain removal; plan for f/u on 10/22 No signs of erythema or tenderness at site Paranoid schizophrenic: Depression: Follows with Nancy ROJO with [facility] Psych Last Telemedicine appt 10/04 No SI/SA, visual or auditory hallucinations Father not being home is a stressor for him Newly prescribed short term prescription of Ativan; may be contributing to hypotension; hold while inpt Consider intellect challenges; nothing documented as outpatient. Flat affect Currently on disability Tobacco Use Disorder: 1/2-1ppd of cigarettes for the past year. Prior to that, he smoked nearly 6-8 cigarettes per day. Declines Nicotine patch Disposition: PCP: Dr. Agrawal Code Status: Full Code VTE Prophylaxis: Lovenox SQ pt/ot, cm to assist w/ dc plan. Admission and Anticipated Discharge Date Admission Date: October 16, 2022 Subjective Patient seen and examined at bedside as a follow-up of left knee pain and hypertension. Patient was lying in bed, on room air, NAD, reports improvement in his left knee pain, no disproportionate pain or tenderness on exam at left knee. Patient denies any new acute event overnight and reports eating at his baseline. Per RN patient with poor fluid intake. Patient reports moving bowels okay. Patient continues to smoke, has been consult regarding smoking cessation. Patient denies headache or dizziness or chest pain or palpitation. Patient with poor hygiene, per RN patient has been refusing bath. Physical Exam Physical Exam: GENERAL: Alert and oriented x3. NAD, on RA. HEENT: No pallor, no icterus. Pupils equal, round and reactive to light. Oral mucosa moist. Numerous dental caries and missing dentition. NECK: No JVD, no neck masses. HEART: S1 and S2 heard. Regular rate and rhythm. No murmur, no gallop. RESPIRATORY SYSTEM: Normal AP diameter. No accessory muscle use. No wheezing, no crackles. ABDOMEN: Soft, bowel sounds present, nontender, no distention. CENTRAL NERVOUS SYSTEM: No facial droop. Speech is clear. Obeys simple commands. Moves extremities. EXTREMITIES: No edema, no erythema seen. Left knee - non tender on palpation and ROM. No swelling/erythema noted. Results & Data Results & Data Vital Signs (Past 12 Hours) Vital Signs Temp Pulse Pulse Pulse Resp BP BP 10/17/22 11:36 36.6 C 68 17 106/72 10/17/22 08:00 36.5 C 60 17 110/68 10/17/22 07:30 10/17/22 05:56 62 10/17/22 03:05 37.7 C H 58 L 18 109/67 Pulse Ox O2 Del Method 10/17/22 11:36 93 Room Air 10/17/22 08:00 94 Room Air 10/17/22 07:30 Room Air 10/17/22 05:56 10/17/22 03:05 95 Room Air (1) Knee pain, left Chronicity: acute Qualified Code(s): M25.562 - Pain in left knee (2) Hypotension Hypotension type: unspecified hypotension type Qualified Code(s): I95.9 - Hypotension, unspecified (8) Depression Depression Type: unspecified Qualified Code(s): F32.9 - Major depressive disorder, single episode, unspecified
[2022-10-17] MEDS: DICLOFENAC SOD 1% GEL 100 GM TUBE EXT SCH ×2 (15:10→21:47)
[2022-10-17] MEDS: ADVANCED PROBIOTIC 1250 MG CAPSULE PO SCH (15:10)
[2022-10-17] MEDS: KETOROLAC TROMETHAMINE 15 MG/ML VIAL IV PRN (15:18)
[2022-10-18] MEDS: KETOROLAC TROMETHAMINE 15 MG/ML VIAL IV PRN ×2 (00:13→08:42)
[2022-10-18] MEDS: DICLOFENAC SOD 1% GEL 100 GM TUBE EXT SCH ×2 (02:36→08:42)
[2022-10-18 07:10] LABS: Hematocrit (blood only) 31.7 % (42.0-52.0); Mean Corpuscular Hemoglobin 28.3 pg (25.0-34.0); Mean Corpuscular Hgb Conc 31.5 g/dL (32.0-36.0); Mean Corpuscular Volume 89.8 fL (80.0-100.0); Mean Platelet Volume 9.3 fL (9.4-12.4); Platelet Count 369 K/uL (130-400); RDW Coefficient of Variation 14.1 % (11.5-14.5); RDW Standard Deviation 45.8 fL (36.4-46.3); Red Blood Count 3.53 M/uL (4.70-6.10); White Blood Count 5.49 K/ul (4.8-10.8)
[2022-10-18 07:31] LABS: BUN Creatinine Ratio 26.7 (10-20); Calcium 8.5 mg/dl (8.6-10.3); Creatinine Clr Calc Pharmacy 125.7 ml/min; Est GFR (African American) 130.2 ml/min; Est GFR (Non-African American) 112.4 ml/min; Magnesium 1.9 mg/dl (1.7-2.4); Phosphorus 3.5 mg/dl (2.5-4.9)
[2022-10-18] MEDS: CYANOCOBALAMIN (B-12) 500 MCG TABLET PO SCH (08:43)
[2022-10-18] MEDS: ENOXAPARIN INJ 40 MG/0.4 ML SYR SQ SCH (08:43)
[2022-10-18] MEDS: ARIPiprazole 10 MG TAB PO SCH (08:43)
[2022-10-18] MEDS: THIAMINE HCL 100 MG TAB PO SCH (08:43)
[2022-10-18] MEDS: ADVANCED PROBIOTIC 1250 MG CAPSULE PO SCH (08:43)
[2022-10-18] MEDS ORDERED: FOLIC ACID 1 MG TAB PO SCH (09:00)
--- NOTE | 2022-10-18 13:14 | Discharge Summary ---
Date of Service October 18, 2022 Admission HPI Per Admitting Provider Mr. Schroeder is a 42 year old male that presents to the [facility] ED today with complaints of left knee pain. Tuesday morning he woke up in the morning and could not straighten his leg. He did notify his home health nurse about the worsening numbness. Additionally, He has complaints of positional dizziness that has occurred intermittently over the past few months. He has been following with Dr. Calle and Carmen Adam for idiopathic peripheral neuropathy that has been worsening over the past few months leading to worsening ataxia; although he denies having any recent falls or trauma. He denies any recent fever, chills or recent illness outside of his hospitalization in July as outline below. In the ED; he was found to be hypotensive; SBP 77. Per EMR records, his baseline BP is soft; running in the high 90's low 100's systolically. Patient had a recent admission at [facility] 08/12-08/17 for management of a perirectal abscess and necrotizing fascitis for which he underwent I/D and was discharged to [facility] for inpatient acute rehab. He returned home on 08/31/22 and through his stay completed a course of Augmentin and Bactrim. He reports that he has been generally weak since then. Pt has quite poor oral dentition with numerous dental caries and missing teeth; nearly his entire top oral cavity without teeth. He reports they fell out naturally without being pulled. He reports smoking 1/2-1ppd of cigarettes for the past year. Prior to that, he smoked nearly 6-8 cigarettes per day. 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 He also drinks two Ensure's per day. No leukocytosis, CRP elevated 2.39, Lactate 1.4, Procalcitonin negative, BNP 27. Recent outpatient labs from August 2022 include: Vitamin B12, SLE negative, Lyme negative (10/12). knee xray negative. Patient follows with Nancy ROJO with psych and had a recent telemedicine consultation this month. He is stable and compliant with his Abilify. He denies SI/SA, manic episodes, visual or auditory hallucinations at his most recent appt. PMH includes perirectal abscess, paranoid schizophrenia, protein malnourishment, and depression. Last ECHO 06/2021: EF 55-60%, LV wall motion normal, mild LVH. Pt denies CLINE, recent illness, blurry or double vision, SOB, chest pain, N/V/D, recent falls or trauma. He does report B/L LE numbness and tingling in his left lower extremity, his mouth and his upper back. On exam, patient lying in his hospital be in no apparent distress. He was able to follow all commands and answer questions appropriately. His perrectal abscess does not have any erythema at site or drainage. He is able to wiggle his toes, left his left leg off of the bed, his left knee does have medial swelling compared to right, but nothing too appreciated. Patient will be admitted for further evaluation and management. Please see A/P for further details. Admission Exam Per Admitting Provider Neuro: AAOx4, PERRLA, no aphagia, memory changes, CNII-XII grossly intact HEENT: head normocephalic, moist mucus membranes. Numerous dental caries and missing dentition CV: S1/S2, (-) M/G/R, (-) edema, cap refill < 3 seconds Resp: Lungs CTA in all erazo. On RA GI: Abdomen S/NT/ND, Ax4 bowel sounds, (-) CVA tenderness Musculoskeletal: 5/5 B/L UE strength, 5/5 B/L LE strength. Uses a cane to walk Psych: Flat affect Principal Diagnosis Left knee pain Hypotension History of idiopathic peripheral neuropathy, ataxia History of paranoid schizophrenia, depression Current tobacco use disorder Discharge Exam GENERAL: Alert and oriented x3. NAD, on RA. HEENT: No pallor, no icterus. Pupils equal, round and reactive to light. Oral mucosa moist. Numerous dental caries and missing dentition. NECK: No JVD, no neck masses. HEART: S1 and S2 heard. Regular rate and rhythm. No murmur, no gallop. RESPIRATORY SYSTEM: Normal AP diameter. No accessory muscle use. No wheezing, no crackles. ABDOMEN: Soft, bowel sounds present, nontender, no distention. CENTRAL NERVOUS SYSTEM: No facial droop. Speech is clear. Obeys simple commands. Moves extremities. EXTREMITIES: No edema, no erythema seen. Left knee - non tender on palpation and ROM. No swelling/erythema noted. Discharge Data Allergies Allergy/AdvReac Type Severity Reaction Status Date / Time Penicillins Allergy Severe Rash Verified 09/28/22 21:10 cefepime Allergy Intermediate lip Verified 09/28/22 21:10 swelling Consultations 10/16/22 10:22 ED Decision to Admit Stat 10/17/22 08:32 Consult Neurology Routine Ordered Studies 10/16/22 12:20 MR thoracic spine wo/w con Routine Hospital Course (1) Knee pain, left: (2) Hypotension: (3) Idiopathic peripheral neuropathy: (4) Ataxia: (5) Perirectal abscess: (6) Paranoid schizophrenia: (7) Tobacco use disorder: (8) Depression: Plan 42 year old that presents with L knee pain to ED and called us to admit for low BP (77/47) at triage. Baseline BP seems to be low normal. Patient with idiopathic peripheral neuropathy (follows with Carmen Adam), recent perirectal abscess with admission in July 2022 at [facility] for I/D (healing as outlined below) and paranoid schizophrenic (On Abilify). At admission, no leukocytosis, CRP elevated 2.39, Lactate 1.4, Procalcitonin negative, BNP 27. Recent outpatient labs from August 2022 include: Vitamin B12, SLE negative, Lyme negative (10/12). Last ECHO 06/2021: EF 55-60%, LV wall motion normal, mild LVH. He was managed for the following: Left Knee pain: No leukocytosis, no disproportionate pain at palpation and ROM at left knee/no swelling notedd. Knee X-ray negative for acute fractures Ketorolac in ED provided relief; continue ibuprofen on dc for few days, can use voltaren gel and prn tylenol. Pt w/ significant improvement of his knee pain and reports moving around ok and would like to go home. Hypotension: 77/47 at triage, s/p 500mL NSB x2 in ED; improved BP during reassessment Last ECHO 06/2021: EF 55-60%, LV wall motion normal, mild LVH; worth repeating while here to eval for any changes At admission: No leukocytosis, Lactate 1.4, Procal negative 10/17 ECHO: EF 55-60%, RV and LV systolic fxn nl. Lt atrial size nl. Orthostatic BPs neg. Urine tox screen was negative at admisison. Newly prescribed short term prescription of Ativan for depression/anxiety; may be contributing to hypotension; BP improved, pt didn't get ativan in hospital, will discontinue ativan on DC. resolved. Idiopathic peripheral neuropathy: Ataxia: Follows with Dr. Calle and Carmen Adam worsening over the past few months leading to worsening ataxia No recent falls or trauma Extensive work up as OPT, Admitting MRI thoracic spine reviewed. 09/17 SLE negative, Hep B negative, Vitamin B12 379 PT/OT takes Vitamin B-12; continue d/w neuro, f/u w/ neuro as OP. Perirectal abscess: Recent admit at [facility] 08/12-08/17 underwent I/D discharged to [facility] for inpatient acute rehab. He returned home on 08/31/22 and through his stay completed a course of Augmentin and Bactrim. He reports that he has been generally weak since then Follows with Dr. Richardson for f/u; recent f/u 09/21 for jony drain removal; plan for f/u on 10/22 No signs of erythema or tenderness at site Paranoid schizophrenic: Depression: Follows with Nancy ROJO with [facility] Psych Last Telemedicine appt 10/04 No SI/SA, visual or auditory hallucinations Father not being home is a stressor for him Newly prescribed short term prescription of Ativan; may be contributing to hypotension; hold while inpt Consider intellect challenges; nothing documented as outpatient. Flat affect Currently on disability Tobacco Use Disorder: 1/2-1ppd of cigarettes for the past year. Prior to that, he smoked nearly 6-8 cigarettes per day. Declines Nicotine patch Disposition: PCP: Dr. Agrawal Code Status: Full Code VTE Prophylaxis: Lovenox SQ Patient being discharged home with home health with following instruction at the point of discharge: Follow-up with your primary care physician within a week time and likely you will need labs CBC/CMP/magnesium/phosphorus. For your left knee pain which got significantly better while in the hospital, you can continue to use Voltaren gel and can use [id number] Tylenol for mild to moderate pain. you can use ibuprofen round the clock for few days. Take ibuprofen with meals. For your low blood pressure which is likely due to your poor fluid intake, encouraged to have better diet and adequate fluid intake. Also it could be complicated by your Ativan use, we will discontinue Ativan on discharge. Maintain oral hygiene, recommend to follow-up with dentist in 1 to 2 weeks time upon discharge. Follow-up with your neurologist as prior. Your vitamin D level was low, you are started on vitamin D supplement 50,000 units once a week for 6 more weeks. Then he will need to take vitamin D 600 to 1000 units daily after this 6 weeks course, coordinate with your PCP office for joint terminal attack controller management. Recommend smoking cessation. Please make sure that you are able to get your medications today by calling your pharmacy before you leave the hospital so that your treatment continuity is not broken. Home Health Attestation I certify that this patient is under my care and that I, or a physicians political science research assistant working with me, had a face to-face encounter that meets the home health [id number] encounter requirements with this patient. The encounter with the patient was in whole, or in part, for the following medical condition, which is the primary reason for home health care (list medical condition): I certify that, based on my findings, the following services are medically necessary home health services: My clinical findings support the need for the above services because: Further, I certify that my clinical findings support that this patient is homebound (i.e. absences from home require considerable and taxing effort and are for medical reasons or jainism services or infrequently or of short duration when for other reasons) because: Certification for Home Health Services: Based on the above findings, I certify that this patient is confined to the home and needs intermittent jail care, physical therapy and/or speech therapy or continues to need occupational therapy. The patient is under my care, and I have initiated the establishment of the plan of care. This patient will be followed by a physician who will periodically review the plan of care. Total Time Total Time Spent Total Time Spent (In Minutes): 45 Discharge Plan Discharge Items Patient Disposition: Home - Home Health Services Reason For Visit: LEFT KNEE PAIN AND HYPOTENSION Discharge Diagnosis: Left knee pain Hypotension History of idiopathic peripheral neuropathy, ataxia History of paranoid schizophrenia, depression Current tobacco use disorder Activity: Resume your previous activity Non-emergency contact: Primary Care Provider Call non-emergency contact if: you have any medication questions, your symptoms worsen and your temperature is above 101 Follow-up/Referrals: Kenneth Agrawal DO [Primary Care Provider] - Diet: Regular Diet Texture: Mechanical soft (ground) Addtl Attending Provider Instructions: Follow-up with your primary care physician within a week time and likely you will need labs CBC/CMP/magnesium/phosphorus. For your left knee pain which got significantly better while in the hospital, you can continue to use Voltaren gel and can use [id number] Tylenol for mild to moderate pain. you can use ibuprofen round the clock for few days. Take ibuprofen with meals. For your low blood pressure which is likely due to your poor fluid intake, encouraged to have better diet and adequate fluid intake. Also it could be complicated by your Ativan use, we will discontinue Ativan on discharge. Maintain oral hygiene, recommend to follow-up with dentist in 1 to 2 weeks time upon discharge. Follow-up with your neurologist as prior. Your vitamin D level was low, you are started on vitamin D supplement 50,000 units once a week for 6 more weeks. Then he will need to take vitamin D 600 to 1000 units daily after this 6 weeks course, coordinate with your PCP office for joint terminal attack controller management. Recommend smoking cessation. Please make sure that you are able to get your medications today by calling your pharmacy before you leave the hospital so that your treatment continuity is not broken. Pending Studies at Discharge: Yes Stand-Alone Forms: My [facility] [employer] Smoking Cessation Medications and DC Order Prescriptions: New acetaminophen 325 mg Tablet 650 mg PO Q6H PRN (Reason: pain) Qty: 60 0RF diclofenac sodium [Voltaren Arthritis Pain] 1 % Gel 4 g EXT QID Qty: 100 0RF Rx Instructions: apply upto four times a day over your left knee Advanced Probiotic 625 mg (10 billion cell) Capsule 2 cap PO DAILY 7 Days Qty: 14 0RF ergocalciferol (vitamin D2) 1,250 mcg (50,000 unit) Capsule 50,000 unit PO Q7D 42 Days Qty: 6 0RF folic acid 1 mg Tablet 1 mg PO QAM Qty: 30 0RF ibuprofen 400 mg tablet 400 mg PO TID PRN (Reason: pain (scale score 7-10)) 5 Days Qty: 15 0RF Continued aripiprazole 10 mg tablet 10 mg PO QAM cyanocobalamin (vitamin B-12) 1,000 mcg tablet 1,000 mcg PO DAILY thiamine HCl (vitamin B1) 100 mg tablet 100 mg PO QAM albuterol sulfate 90 mcg/actuation HFA aerosol inhaler 2 puff INHALATION Q6 PRN (Reason: cough,SOB,wheezing) hydroxyzine HCl 50 mg tablet 50 mg PO Q8H PRN (Reason: Anxiety) Discontinued lorazepam 1 mg tablet 1 mg PO Q8H PRN (Reason: anxiety) Qty: 12 0RF Discharge Orders: Discharge Order (Routine); Ordered 10/18/22 Ordered By: Ander Rodriguez Admission Data Admit Date/Time: 10/16/22 10:40 Attending Provider: Ander Rodriguez Admit Provider: Lupe Julio Primary Care Provider: Kenneth Agrawal Other Providers: Lupe Julio
== END 2022-10-18 16:00 | disposition home health service (06) | DRG 315 ==
LOC: ED 08:13 → SUATTDRO 10:40 → 2W 10:40

== ENCOUNTER 2022-11-16 05:12 | Inpatient (IN) ==
[2022-11-16] MEDS ORDERED: LORazepam 1 MG TAB SL STA (05:35)
--- NOTE | 2022-11-16 05:42 | Emergency Department Note ---
Impression & Plan Paranoid schizophrenia ED Provider Note Name: KIERA STANTON Age: 42 Sex: M Arrives Via: Walk-In Informant: Patient, father ED Provider: Jimmie Ba MD Chief Complaint: Mental health evaluation Impression: As per impressions above Medical Decision Makin-year-old gentleman well-known to me and department for frequent ER visits with a long history of paranoid schizophrenia amongst multiple other medical issues arrives for evaluation of worsening paranoia over the last few days. This seems to be stemming from having rapidly stopped Ativan following a hospita lization where his somnolence/hypotensive was concern to be due to Ativan. Patient is scared to take it at home now when he is anxious. Over the last few nights patient has not been sleeping he has not been eating and has not been caring for himself. He has been calling the police multiple times day and night believing that there are people outside. Father states that this is some of the worst the patient has been in quite some time. Father does believe the patient is no longer safe at home and is unable to care for himself. Father does not feel that he can care for the patient in the current state either. They both note the patient is not a risk of harming himself or others. Of note, on further discussion with father, he notes that patient had been on Invega up until May of this year when it was stopped by patient due to perceived side effects. Since then he has really decompensated. Patient signed out to morning ER physician pending mental health evaluation further. Prior Medical Record and Triage/Nursing Notes reviewed by Me External chart reviewed by me Differentials:Mood disorder, infection, hypoglycemia, electrolyte abnormalit ies, cardiac sources, intracerebral event, toxicologic, trauma, neurologic, as well as other pathologies. Vital Signs: reviewed and remarkable for no significant abnormalities Interventions: Ativan 1 mg sublingual Labs:Pending at time of signout to Dr. Rivera however I will note that sodium returned at just send out time and it is a bit on the low side though this is apparently been where the patient has been over the last few checks. Consults:Discussed with mental health case management. They know patient well and unfortunately patient has not been following up with psych either. Plan: Disposition: Signed out to Dr Rivera morning ED physician Condition: Good History of Present Illness:42-year-old gentleman arrives for evaluation of mental health crisis. Patient with worsening mental health concerns especially over the last few days. He is stopped sleeping, caring for self as well as not eating well. Father is concerned the patient is unable to care for himself at this point. Father has been caring for him for quite some time and knows his son's mental health issues and is essentially kept him out of psychiatric admission for the last 4 to 5 years. Patient has had multiple medical issues over the last few years with hospitalizations for them. Patient denies any current medical issues. He has recently had a rectal abscess which was drained and treated and he denies any current rectal pain, fevers, chills, abdominal pain or other concerning signs or symptoms. Patient was prescribed Vistaril yesterday which she took without any improvement in his anxiety/paranoia. He is also on Abilify which she has continued to take each morning. He previously was on Ativan which she stopped suddenly after recent hospitalization due to concerns that may be causing his blood pressure to drop or make him sleepy. Patient is scared to take it when he is anxious and that is further exacerbated the current episode. Patient denies any attempts to harm himself or others. He does not have any current thoughts to harm himself. Past History:Paranoid schizophrenia, neuropathy, GERD, depression, tobacco use Home Medications:See Below Allergies:Penicillins and cefepime Vitals:Blood Pressure: 152/88, Pulse 108, RR 18, T 36.6C, O2 99% on RA Physical Exam: GENERAL: Patient is chronically unwell appearing and in mild distress. Cachectic. RESPIRATORY: No dyspnea. Clear to auscultation and equal bilaterally. No wheeze, no rhonchi. CARDIOVASCULAR: Mildly tachy.No murmurs, rubs, gallops appreciated. GASTROINTESTINAL: Abdomen soft, non-tender, no peritonitis.Bowel sounds positive.No masses appreciated. EXTREMITIES: Normal motion all extremities, no cyanosis, no edema. NEUROLOGIC: Alert and oriented, no focal neurologic deficits appreciated SKIN: No rash, no jaundice, no diaphoresis. PSYCH: Significantly anxious, distressed appearing, appears to be looking around the room in a paranoid state. GCS: 15 ED Course: Times/Reassessments: Patient stable he does seem to have calmed down slightly and is pending further mental health evaluation Jimmie Ba MD Past Med/Surg History Medical History Anemia Ataxia Critical illness myopathy Depression Hidradenitis suppurativa Idiopathic peripheral neuropathy Paranoid schizophrenia Perirectal abscess Tobacco use disorder Weakness Surgical History History of incision and drainage Family History Other Cancer Denies family history of Schizophrenia Social History Smoking Status: Current every day smoker Tobacco Type: Cigarettes packs per day: 0.5; Cigarettes Per Day: 10; Second Hand Exposure: No; Do You Dip or Chew Tobacco: No; Tobacco Cessation Education Requested by Patient: No Hx Alcohol Use: No Hx Substance Use: No Preferred Language: German Communication Ability: Effective Visual Impairment: No Limitations Hearing Ability: Normal Discharge Specialist Required: No Beliefs That Will Affect Care: None marital status: Single Current Living Situation: Parent Current Living Situation Comment: lives with father current occupational status: disabled How many Children do You have: 0 Feels Safe at Home: Yes Safety Concerns: Feels Safe At This Time Diet: regular during the past year weight has: remained stable Gender Identity: Male Assistive Devices: Cane Allergies Allergies Allergy/AdvReac Type Severity Reaction Status Date / Time Penicillins Allergy Severe Rash Verified 09/28/22 21:10 cefepime Allergy Intermediate lip Verified 09/28/22 21:10 swelling Home Meds Home Medications Medication Instructions Recorded Confirmed aripiprazole 10 mg tablet 15 mg PO HS 08/11/22 11/16/22 albuterol sulfate 90 mcg/actuation 2 puff inhalation Q6 PRN 09/28/22 11/16/22 aerosol inhaler cough,SOB,wheezing cyanocobalamin (vitamin B-12) 1,000 mcg PO DAILY 09/28/22 11/16/22 1,000 mcg tablet thiamine HCl (vitamin B1) 100 mg 100 mg PO QAM 09/28/22 11/16/22 tablet Previous Rx's Medication Instructions Recorded acetaminophen 325 mg tablet 650 mg PO Q6H PRN pain #60 tabs 10/18/22 ergocalciferol (vitamin D2) 1,250 50,000 unit PO Q7D 6 weeks #6 caps 10/18/22 mcg (50,000 unit) capsule ondansetron 4 mg disintegrating 4 mg PO Q6H PRN nausea and 11/02/22 tablet vomiting #14 tabs hydroxyzine pamoate 25 mg capsule 25 mg PO Q8H PRN itching #20 caps 11/14/22 (Vistaril) Results & Data (ED) Vital Signs Vital Signs - 24 hr 11/16/22 05:16 11/16/22 06:13 11/16/22 06:47 Temperature 36.6 C Temperature Source Temporal Artery Scan Pulse Rate 108 H Pulse Rate [Finger] 101 H Pulse Rhythm Regular Pulse Rhythm [Finger] Pulse Strength Normal Pulse Strength [Finger] Respiratory Rate 18 Respiratory Effort / Characteristics Non-Labored Spontaneous Non-Labored Respiratory Depth Normal Normal Respiratory Pattern Regular Blood Pressure 152/88 H Blood Pressure [Right Arm] 125/86 Blood Pressure Mean 109 Blood Pressure Mean [Right Arm] 99 Blood Pressure Position Sitting Blood Pressure Position [Right Arm] Pulse Oximetry 99 99 Oxygen Delivery Method Room Air Room Air Sepsis Recent Fever Within 48 Hours No Sepsis New/Unexplained Change in Mental Status No Sepsis Action Taken by Nursing No Action Required 11/16/22 08:17 11/16/22 10:38 Temperature Temperature Source Pulse Rate 70 Pulse Rate [Finger] 70 Pulse Rhythm Pulse Rhythm [Finger] Regular Pulse Strength Pulse Strength [Finger] Normal Respiratory Rate 18 Respiratory Effort / Characteristics Non-Labored Spontaneous Respiratory Depth Normal Respiratory Pattern Regular Blood Pressure Blood Pressure [Right Arm] 115/69 Blood Pressure Mean Blood Pressure Mean [Right Arm] 84 Blood Pressure Position Blood Pressure Position [Right Arm] Lying Pulse Oximetry 98 Oxygen Delivery Method Room Air Sepsis Recent Fever Within 48 Hours Sepsis New/Unexplained Change in Mental Status Sepsis Action Taken by Nursing Laboratory Data 11/16/22 05:58 11/16/22 05:58 Lab Results 11/16/22 11/16/22 11/16/22 Range/Units 05:45 05:45 05:58 WBC 9.96 (4.8-10.8) K/ul RBC 4.44 L (4.70-6.10) M/uL Hgb 12.1 L (14.0-18.0) g/dl Hct 35.3 L (42.0-52.0) % MCV 79.5 L (80.0-100.0) fL MCH 27.3 (25.0-34.0) pg MCHC 34.3 (32.0-36.0) g/dL RDW Std Deviation 39.8 (36.4-46.3) fL RDW Coeff of Fausto 13.8 (11.5-14.5) % Plt Count 491 H (130-400) K/uL MPV 8.1 L (9.4-12.4) fL Immature Gran % (Auto) 0.3 % Neut % (Auto) 56.5 % Lymph % (Auto) 37.0 % Rhea % (Auto) 4.2 % Eos % (Auto) 1.6 % Baso % (Auto) 0.4 % Neut # (Auto) 5.62 (1.40-6.50) K/uL Lymph # (Auto) 3.69 H (1.2-3.4) K/uL Rhea # (Auto) 0.42 (0.11-0.59) K/uL Eos # (Auto) 0.16 (0-0.50) K/uL Baso # (Auto) 0.04 (0-0.2) K/uL Immature Gran # (Auto) 0.03 (0.01-0.20) K/uL Sodium (136-145) mmol/L Potassium (3.5-5.1) mmol/L Chloride (98-107) mmol/L Carbon Dioxide (21-32) mmol/L Anion Gap (3-11) BUN (6-23) mg/dl Creatinine (0.6-1.4) mg/dl Est Cr Clr Drug Dosing ml/min Est GFR ( Amer) ml/min Est GFR (Non-Af Amer) ml/min BUN/Creatinine Ratio (10-20) Glucose (70-99(Fasting)) mg/dl Osmolality (280-300) mOsm/kg Calcium (8.6-10.3) mg/dl Total Bilirubin (0.2-1.0) mg/dl AST (13-39) U/L ALT (7-52) U/L Alkaline Phosphatase (34-104) U/L Total Protein (6.0-8.3) gm/dl Albumin (3.4-5.0) gm/dl Globulin (2.5-4.0) gm/dl Albumin/Globulin Ratio (0.9-2) TSH (0.300-4.500) uIu/ml Urine Color Yellow Urine Appearance Clear (Clear) Urine pH 5.5 (4.5-7.5) Ur Specific Ola 1.003 (1.000-1.030) Urine Protein Negative (Negative) Urine Glucose (UA) Negative (Negative) Urine Ketones Negative (Negative) Urine Blood Negative (Negative) Urine Nitrite Negative (Negative) Urine Bilirubin Negative (Negative) Urine Urobilinogen Negative (Negative) Ur Leukocyte Esterase Negative (Negative) Salicylates (3.0-30) mg/dl Urine Opiates Screen Neg (Neg) Ur Methadone, Qual Neg (Neg) Acetaminophen (10-30) ug/ml Urine Barbiturates Neg (Neg) Ur Phencyclidine (PCP) Neg (Neg) U Amphetamin/Meth Scrn Neg (Neg) MDMA (Ecstasy) Screen Neg (Neg) U Benzodiazepines Scrn Neg (Neg) Ur Cocaine Metabolite Neg (Neg) U Marijuana (THC) Screen Neg (Neg) Ethyl Alcohol mg/dL (<10.0) mg/dl SARS-CoV-2, RNA, NAAT (NEGATIVE) 11/16/22 11/16/22 11/16/22 Range/Units 05:58 05:58 05:58 WBC (4.8-10.8) K/ul RBC (4.70-6.10) M/uL Hgb (14.0-18.0) g/dl Hct (42.0-52.0) % MCV (80.0-100.0) fL MCH (25.0-34.0) pg MCHC (32.0-36.0) g/dL RDW Std Deviation (36.4-46.3) fL RDW Coeff of Fausto (11.5-14.5) % Plt Count (130-400) K/uL MPV (9.4-12.4) fL Immature Gran % (Auto) % Neut % (Auto) % Lymph % (Auto) % Rhea % (Auto) % Eos % (Auto) % Baso % (Auto) % Neut # (Auto) (1.40-6.50) K/uL Lymph # (Auto) (1.2-3.4) K/uL Rhea # (Auto) (0.11-0.59) K/uL Eos # (Auto) (0-0.50) K/uL Baso # (Auto) (0-0.2) K/uL Immature Gran # (Auto) (0.01-0.20) K/uL Sodium 127 L (136-145) mmol/L Potassium 3.6 (3.5-5.1) mmol/L Chloride 95 L (98-107) mmol/L Carbon Dioxide 28 (21-32) mmol/L Anion Gap 4 (3-11) BUN 4 L (6-23) mg/dl Creatinine 0.64 (0.6-1.4) mg/dl Est Cr Clr Drug Dosing 149.7 ml/min Est GFR ( Amer) 139.0 ml/min Est GFR (Non-Af Amer) 119.9 ml/min BUN/Creatinine Ratio 6.3 L (10-20) Glucose 85 (70-99(Fasting)) mg/dl Osmolality (280-300) mOsm/kg Calcium 9.1 (8.6-10.3) mg/dl Total Bilirubin 0.2 (0.2-1.0) mg/dl AST 16 (13-39) U/L ALT 8 (7-52) U/L Alkaline Phosphatase 86 (34-104) U/L Total Protein 8.0 (6.0-8.3) gm/dl Albumin 4.2 (3.4-5.0) gm/dl Globulin 3.8 (2.5-4.0) gm/dl Albumin/Globulin Ratio 1.1 (0.9-2) TSH 1.162 (0.300-4.500) uIu/ml Urine Color Urine Appearance (Clear) Urine pH (4.5-7.5) Ur Specific Ola (1.000-1.030) Urine Protein (Negative) Urine Glucose (UA) (Negative) Urine Ketones (Negative) Urine Blood (Negative) Urine Nitrite (Negative) Urine Bilirubin (Negative) Urine Urobilinogen (Negative) Ur Leukocyte Esterase (Negative) Salicylates < 3.0 L (3.0-30) mg/dl Urine Opiates Screen (Neg) Ur Methadone, Qual (Neg) Acetaminophen < 3 L (10-30) ug/ml Urine Barbiturates (Neg) Ur Phencyclidine (PCP) (Neg) U Amphetamin/Meth Scrn (Neg) MDMA (Ecstasy) Screen (Neg) U Benzodiazepines Scrn (Neg) Ur Cocaine Metabolite (Neg) U Marijuana (THC) Screen (Neg) Ethyl Alcohol mg/dL (<10.0) mg/dl SARS-CoV-2, RNA, NAAT (NEGATIVE) 11/16/22 11/16/22 11/16/22 Range/Units 05:58 05:58 05:58 WBC (4.8-10.8) K/ul RBC (4.70-6.10) M/uL Hgb (14.0-18.0) g/dl Hct (42.0-52.0) % MCV (80.0-100.0) fL MCH (25.0-34.0) pg MCHC (32.0-36.0) g/dL RDW Std Deviation (36.4-46.3) fL RDW Coeff of Fausto (11.5-14.5) % Plt Count (130-400) K/uL MPV (9.4-12.4) fL Immature Gran % (Auto) % Neut % (Auto) % Lymph % (Auto) % Rhea % (Auto) % Eos % (Auto) % Baso % (Auto) % Neut # (Auto) (1.40-6.50) K/uL Lymph # (Auto) (1.2-3.4) K/uL Rhea # (Auto) (0.11-0.59) K/uL Eos # (Auto) (0-0.50) K/uL Baso # (Auto) (0-0.2) K/uL Immature Gran # (Auto) (0.01-0.20) K/uL Sodium (136-145) mmol/L Potassium (3.5-5.1) mmol/L Chloride (98-107) mmol/L Carbon Dioxide (21-32) mmol/L Anion Gap (3-11) BUN (6-23) mg/dl Creatinine (0.6-1.4) mg/dl Est Cr Clr Drug Dosing ml/min Est GFR ( Amer) ml/min Est GFR (Non-Af Amer) ml/min BUN/Creatinine Ratio (10-20) Glucose (70-99(Fasting)) mg/dl Osmolality 264 L (280-300) mOsm/kg Calcium (8.6-10.3) mg/dl Total Bilirubin (0.2-1.0) mg/dl AST (13-39) U/L ALT (7-52) U/L Alkaline Phosphatase (34-104) U/L Total Protein (6.0-8.3) gm/dl Albumin (3.4-5.0) gm/dl Globulin (2.5-4.0) gm/dl Albumin/Globulin Ratio (0.9-2) TSH (0.300-4.500) uIu/ml Urine Color Urine Appearance (Clear) Urine pH (4.5-7.5) Ur Specific Ola (1.000-1.030) Urine Protein (Negative) Urine Glucose (UA) (Negative) Urine Ketones (Negative) Urine Blood (Negative) Urine Nitrite (Negative) Urine Bilirubin (Negative) Urine Urobilinogen (Negative) Ur Leukocyte Esterase (Negative) Salicylates (3.0-30) mg/dl Urine Opiates Screen (Neg) Ur Methadone, Qual (Neg) Acetaminophen (10-30) ug/ml Urine Barbiturates (Neg) Ur Phencyclidine (PCP) (Neg) U Amphetamin/Meth Scrn (Neg) MDMA (Ecstasy) Screen (Neg) U Benzodiazepines Scrn (Neg) Ur Cocaine Metabolite (Neg) U Marijuana (THC) Screen (Neg) Ethyl Alcohol mg/dL < 10.0 (<10.0) mg/dl SARS-CoV-2, RNA, NAAT NEGATIVE (NEGATIVE) Administered Medications Aripiprazole (Aripiprazole 15 Mg Tab) 15 mg PO HS CORNELIUS Stop: 12/16/22 20:59 Last Admin: 11/16/22 21:27 Dose: 15 mg Documented By: SMN Ergocalciferol (Ergocalciferol 50,000 Units 1250 Mcg Cap) 50,000 units PO Q7D CORNELIUS Stop: 12/16/22 15:59 Last Admin: 11/16/22 17:16 Dose: 50,000 units Documented By: AV Heparin Sodium (Porcine) (Heparin Sod 5,000 Unit/0.5 Ml Vial) 5,000 units SQ Q12 CORNELIUS Stop: 12/16/22 20:59 Last Admin: 11/16/22 21:28 Dose: Not Given Documented By: SMN Sodium Chloride (Nss 1000ml) 1,000 mls @ 80 mls/hr IV .[id number] CORNELIUS Stop: 12/16/22 16:14 Last Admin: 11/16/22 16:15 Dose: 80 mls/hr Documented By: AV Discontinued Medications Sodium Chloride (Nss) 500 mls @ 80 mls/hr IV .[id number] CORNELIUS Stop: 12/16/22 07:14 Last Infusion: 11/16/22 16:01 Dose: 0 mls/hr Documented By: Admin: 11/16/22 14:26 Dose: 80 mls/hr Documented By: Infusion: 11/16/22 14:26 Dose: 80 mls/hr Documented By: Admin: 11/16/22 08:20 Dose: 80 mls/hr Documented By: MARK Lorazepam (Lorazepam 1 Mg Tab) 1 mg SL NOW STA Stop: 11/16/22 05:36 Last Admin: 11/16/22 06:13 Dose: 1 mg Documented By: ELIANA Discharge Plan Visit Data Chief Complaint: Mental Health Evaluation Stated Complaint: MENTAL HEALTH ED Provider: Galo Rivera Discharge Problem: Paranoid schizophrenia Patient Disposition: Admitted As Inpatient Discharge Instructions Interventions: ED Discharge Assessment Last Done: 11/16/22 14:33
[2022-11-16 06:35] LABS: Appearance Urine Clear (Clear); Bilirubin Urine Negative (Negative); Blood Urine Negative (Negative); Color Urine Yellow; Glucose Urine UA Negative (Negative); Ketones Urine Negative (Negative); Leukocyte Esterase Urine Negative (Negative); Nitrite Urine Negative (Negative); Protein Urine Negative (Negative); Specific Gravity Urine 1.003 (1.000-1.030); Urobilinogen Urine Negative (Negative); pH Urine 5.5 (4.5-7.5)
[2022-11-16 06:37] LABS: Basophils # (auto) 0.04 K/uL (0-0.2); Basophils % (auto) 0.4 %; Eosinophils # (auto) 0.16 K/uL (0-0.50); Eosinophils % (auto) 1.6 %; Hematocrit (blood only) 35.3 % (42.0-52.0); Hemoglobin 12.1 g/dl (14.0-18.0); Immature Granulocytes # (auto) 0.03 K/uL (0.01-0.20); Immature Granulocytes % (auto) 0.3 %; Lymphocytes # (auto) 3.69 K/uL (1.2-3.4); Mean Corpuscular Hemoglobin 27.3 pg (25.0-34.0); Mean Corpuscular Hgb Conc 34.3 g/dL (32.0-36.0); Mean Corpuscular Volume 79.5 fL (80.0-100.0); Mean Platelet Volume 8.1 fL (9.4-12.4); Monocytes # (auto) 0.42 K/uL (0.11-0.59); Monocytes % (auto) 4.2 %; Neutrophils # (auto) 5.62 K/uL (1.40-6.50); Neutrophils % (auto) 56.5 %; Platelet Count 491 K/uL (130-400); RDW Coefficient of Variation 13.8 % (11.5-14.5); RDW Standard Deviation 39.8 fL (36.4-46.3); Red Blood Count 4.44 M/uL (4.70-6.10); White Blood Count 9.96 K/ul (4.8-10.8)
[2022-11-16 06:52] LABS: Albumin Globulin Ratio 1.1 (0.9-2); Albumin Level 4.2 gm/dl (3.4-5.0); BUN Creatinine Ratio 6.3 (10-20); Bilirubin,Total 0.2 mg/dl (0.2-1.0); Calcium 9.1 mg/dl (8.6-10.3); Creatinine Clr Calc Pharmacy 149.7 ml/min; Est GFR (Non-African American) 119.9 ml/min; Globulin 3.8 gm/dl (2.5-4.0); Potassium 3.6 mmol/L (3.5-5.1)
[2022-11-16 06:59] LABS: Amphetamines+Metham, Urine Neg (Neg); Barbiturates, Urine Neg (Neg); Benzodiazepine, Urine Neg (Neg); Cocaine, Urine Neg (Neg); MDMA (Ecstacy), Urine Neg (Neg); Methadone, Urine Neg (Neg); Opiate, Urine Neg (Neg); Phencyclidine, Urine Neg (Neg)
[2022-11-16 06:59] LABS: Acetaminophen < 3 ug/ml (10-30); Salicylate < 3.0 mg/dl (3.0-30)
--- NOTE | 2022-11-16 07:09 | Emergency Department Note ---
ED Visit Note Received this patient in signout from Dr. Ba. Patient with longstanding history of paranoid schizophrenia. Worsening the last several days particularly in regards to Ativan and primary caregiver at home father has not been able to sleep for several days. Anxiety level has been high and has been calling the police. Has tried Vistaril as an outpatient recently and seen here in the ER several times. [facility]. Discontinued Ativan in the past due to reported hypotension. Patient and father requesting inpatient treatment. Basic blood work obtained here today. Seen with case management. Decreased intake reported. Does have some hyponatremia 127 but does not seem severely symptomatic at this time. Discussed with case management however and given his hyponatremia they recommended medical admission. Discussed with the [facility] hospitalist. Diet ordered as well as some maintenance IV fluids. Updated the patient regarding this. Disposition: evaluation by the hospitalist Diagnosis: Anxiety and hyponatremia .
[2022-11-16] MEDS: SODIUM CHLORIDE 0.9% 500 ML IV SCH ×2 (08:20→14:26)
--- NOTE | 2022-11-16 08:56 | History & Physical Report ---
Date of Service November 16, 2022 Assessment & Plan (1) Paranoid schizophrenia: Plan: Uncontrolled currently He was previously on Invega but this was discontinued due to perceived side effects (will need further investigation whether this was self discontinued vs discontinued by his psychiatrist) Continue aripirazole 15mg QHS Will ask for psychiatry consultation for medication optimization. (2) Anxiety and depression: Plan: Continue Vistaril PRN Previously was on short course of ativan for anxiety but this was discontinued on prior admission due to hypotension and drowsiness (3) Hyponatremia: Plan: Due to poor oral intake, related to his paranoia Continue NSS at 80 cc/hr. Will repeat BMP again later today Hold off on Nephrology consultation for now unless Hyponatremia worsens (4) Severe protein-calorie malnutrition: Plan: Will ask for RD input. Malnutrition due to poor oral intake related to his paranoia (5) Hidradenitis suppurativa: Plan: By report he currently does not have any skin abscesses or ulcers. And he is currently wearing a T shirt and overlying that paper scrub shirt and long pants. Since he is very drowsy and will be unable to disrobe himself, I deferred skin exam for now. He does not have any signs/symptoms of infection--no fever/chills, no leukocytosis. Will continue to monitor Plan DVT ppx SQ heparin. Code Status Presumed to be Full. Code status was deferred due to his current paranoia. Noted that on prior hospitalizations, he was Full code so we will continue this History of Present Illness Chief Complaint: worsening paranoia Primary Care Provider: Kenneth Agrawal DO Mr Gurpreet Schroeder is a 42 year old man with a history of paranoid schizophrenia, depression, anxiety, severe protein malnutrition, hidradenitis suppurativa with perirectal abscess who has a history of being institutionalized for his schizophrenia but is currently living with his father was brought in today for worsening paranoia. Patient was previously on Invega for his schizophrenia but stopped taking it due to perceived side effects. His ativan was also recently discontinued on a prior hospitalization due to hypotension and increased somnolence. Currently his schizophrenia and anxiety is uncontrolled. He has had multiple presentations to [facility] for paranoia for the past several days but was cleared and sent home with instructions to follow up with his primary psychiatrist and to return to ER if his symptoms worsens. During this time, his paranoia and anxiety has worsened to the point that his father can no longer care for him. He has been calling the police multiple times a day every day with concerns there are people outside. He has also very diminished oral intake. He reports only eating 1 meal a day, the time of the meal varies but usually it is dinner. When asked why he only eats one meal a day, he begins rambling about "angels and satan" then falls back asleep. When asked why he is so drowsy currently, he reports that his sleep schedule is reversed and that he sleeps during the day and stays up at night. He denies chest pain, shortness of breath, fever/chills, nausea/vomiting/diarrhea. He feels safe right now and does not have suicidal or homicidal thoughts. He agrees that if he begins to have these thoughts that he will let us know. In the ED, labwork revealed a Na of 127 and Hospitalist service was contacted for medical optimization. ER course- ativan 1mg SL at 6am. NSS at 80 cc/hr is currently running Allergies Allergy/AdvReac Type Severity Reaction Status Date / Time Penicillins Allergy Severe Rash Verified 09/28/22 21:10 cefepime Allergy Intermediate lip Verified 09/28/22 21:10 swelling Home Medications Medication Instructions Recorded Confirmed Type aripiprazole 10 mg tablet 15 mg PO HS 08/11/22 11/16/22 History albuterol sulfate 90 mcg/actuation 2 puff inhalation Q6 PRN 09/28/22 11/16/22 History aerosol inhaler cough,SOB,wheezing cyanocobalamin (vitamin B-12) 1,000 mcg PO DAILY 09/28/22 11/16/22 History 1,000 mcg tablet thiamine HCl (vitamin B1) 100 mg 100 mg PO QAM 09/28/22 11/16/22 History tablet acetaminophen 325 mg tablet 650 mg PO Q6H PRN pain #60 tabs 10/18/22 11/16/22 Rx ergocalciferol (vitamin D2) 1,250 50,000 unit PO Q7D 6 weeks #6 caps 10/18/22 11/16/22 Rx mcg (50,000 unit) capsule ondansetron 4 mg disintegrating 4 mg PO Q6H PRN nausea and 11/02/22 11/16/22 Rx tablet vomiting #14 tabs hydroxyzine pamoate 25 mg capsule 25 mg PO Q8H PRN itching #20 caps 11/14/22 11/16/22 Rx (Vistaril) Past Med/Surg History Medical History Anemia Ataxia Critical illness myopathy Depression Hidradenitis suppurativa Idiopathic peripheral neuropathy Paranoid schizophrenia Perirectal abscess Tobacco use disorder Weakness Surgical History History of incision and drainage Family History Other Cancer Denies family history of Schizophrenia Social History Smoking Status: Current every day smoker Tobacco Type: Cigarettes packs per day: 0.5; Cigarettes Per Day: 10; Second Hand Exposure: No; Do You Dip or Chew Tobacco: No; Hx Alcohol Use: No Hx Substance Use: No Preferred Language: Yoruba Communication Ability: Effective Visual Impairment: No Limitations Hearing Ability: Normal Coin Wrapping Machine Operator Required: No Beliefs That Will Affect Care: None marital status: Single Current Living Situation: Family Current Living Situation Comment: lives with father current occupational status: disabled How many Children do You have: 0 Feels Safe at Home: No Is there a partner from a previous relationship who is making you feel unsafe now?: No Diet: regular during the past year weight has: remained stable Gender Identity: Male Assistive Devices: Cane and Walker Review of Systems Review of Systems: as above Physical Exam Physical Exam: Patient seen in ED room A 5 at 915 am. Food containers at bedside is empty, patient ate most of his breakfast Constitutional: Thin, laying in bed in darkened room. He is arousable but very drowsy and has difficulty staying awake ENMT: mucous membrane dry, poor dentition, temporal muscle wasting Respiratory: Breathing comfortably on room air, no wheezing/rhonchi/rales Cardiovascular: Regular rate and rhythm, no murmurs/rubs/gallops Gastrointestinal (Abdomen): soft, non tender, non distended Musculoskeletal: no edema, extremities are thin, no cyanosis Skin: Deferred. Patient is wearing full paper scrubs. per nursing staff, no report of wounds Neurologic: drowsy but arousable. Difficulty staying awake. answers questions but falls asleep mid sentence, spontaneously moving extremities Psychiatric: Exhibits paranoid ideas, denies suicidal or homicidal thoughts, speech is circumferential and rambling Results & Data Results & Data Vital Signs (Past 12 Hours) Vital Signs Temp Pulse Pulse Resp BP BP Pulse Ox 11/16/22 08:17 70 11/16/22 06:47 101 H 125/86 99 11/16/22 06:13 11/16/22 05:16 36.6 C 108 H 18 152/88 H 99 O2 Del Method 11/16/22 08:17 11/16/22 06:47 11/16/22 06:13 Room Air 11/16/22 05:16 Room Air
[2022-11-16 14:50] LABS: Calcium 8.6 mg/dl (8.6-10.3); Potassium 4.3 mmol/L (3.5-5.1)
[2022-11-16 14:56] LABS: BUN Creatinine Ratio 8.5 (10-20); Creatinine Clr Calc Pharmacy 162.4 ml/min; Est GFR (African American) 143.7 ml/min
[2022-11-16] MEDS ORDERED: hydrOXYzine HCl 25 MG TAB PO PRN (14:58)
[2022-11-16] MEDS ORDERED: ACETAMINOPHEN 325 MG TAB PO PRN ×2 (14:58)
[2022-11-16] MEDS ORDERED: ALBUTEROL HFA 8 GM INHALER INH PRN (14:58)
--- NOTE | 2022-11-16 15:02 | Psychiatric Consultation ---
Date of Consultation November 16, 2022 Impression / Recommendations Impression Diagnostically seems consistent with acute exacerbation of schizophrenia with worsening paranoia and anxiety in context of recent transition from Invega to abilify. Unclear if hyponatremia due to psychiatric medication side effects or from poor oral intake. For now agree with continuing abilify with medical interventions to improve nutritional status. Will continue to follow and determine if inpatient psychiatric hospitalization will be required once medically stable. (1) Schizophrenia: (2) Hyponatremia: (3) Anxiety and depression: (4) Paranoia: Plan -Continue with abilify as ordered for now -For behavioral emergency would use: olanzapine 5mg IM (Do not ever co- administer with IM or IV benzodiazepines) Psych History Identifying Data 42 yo man with a history of schizophrenia, depression and anxiety admitted medically for hyponatremia and malnutrition after presenting for worsening of paranoia. Psychiatry consulted for recommendations. Chief Complaint "I'm having some mental health issues". History of Present Illness Gurpreet presented to the ED for the second time in two days endorsing worsening paranoia and anxiety. He tells me these symptoms started a few days ago. He cannot provide further details about the nature of his paranoia and is then taken to be moved upstairs to a medical room interrupting further attempt at our interview. Allergies Allergy/AdvReac Type Severity Reaction Status Date / Time Penicillins Allergy Severe Rash Verified 09/28/22 21:10 cefepime Allergy Intermediate lip Verified 09/28/22 21:10 swelling Home Medications Medication Instructions Recorded Confirmed Type aripiprazole 10 mg tablet 15 mg PO HS 08/11/22 11/16/22 History albuterol sulfate 90 mcg/actuation 2 puff inhalation Q6 PRN 09/28/22 11/16/22 History aerosol inhaler cough,SOB,wheezing cyanocobalamin (vitamin B-12) 1,000 mcg PO DAILY 09/28/22 11/16/22 History 1,000 mcg tablet thiamine HCl (vitamin B1) 100 mg 100 mg PO QAM 09/28/22 11/16/22 History tablet acetaminophen 325 mg tablet 650 mg PO Q6H PRN pain #60 tabs 10/18/22 11/16/22 Rx ergocalciferol (vitamin D2) 1,250 50,000 unit PO Q7D 6 weeks #6 caps 10/18/22 11/16/22 Rx mcg (50,000 unit) capsule ondansetron 4 mg disintegrating 4 mg PO Q6H PRN nausea and 11/02/22 11/16/22 Rx tablet vomiting #14 tabs hydroxyzine pamoate 25 mg capsule 25 mg PO Q8H PRN itching #20 caps 11/14/22 11/16/22 Rx (Vistaril) Patient History Medical History Anemia Ataxia Critical illness myopathy Depression Hidradenitis suppurativa Idiopathic peripheral neuropathy Paranoid schizophrenia Perirectal abscess Tobacco use disorder Weakness Surgical History History of incision and drainage Family History Other Cancer Denies family history of Schizophrenia Social History Smoking Status: Current every day smoker Tobacco Type: Cigarettes packs per day: 0.5; Cigarettes Per Day: 10; Second Hand Exposure: No; Do You Dip or Chew Tobacco: No; Tobacco Cessation Education Requested by Patient: No Hx Alcohol Use: No Hx Substance Use: No Preferred Language: Greek Communication Ability: Effective Visual Impairment: No Limitations Hearing Ability: Normal Wildlife Control Operator Required: No Beliefs That Will Affect Care: None marital status: Single Current Living Situation: Parent Current Living Situation Comment: lives with father current occupational status: disabled How many Children do You have: 0 Feels Safe at Home: Yes Safety Concerns: Feels Safe At This Time Diet: regular during the past year weight has: remained stable Gender Identity: Male Assistive Devices: Cane Physical Exam Psychiatric: Orientation: alert, oriented to person, oriented to place and + guarded Apperance: appropriately dressed and + disheveled (malodorus) Eye Contact: + fair eye contact Motor Behavior: no abnormal motor movements Speech: + abnormal rate/rhythm/volume of speech (latent, soft) Affect: + flat affect Mood: + anxious mood Thought Process: + concrete thought process Thought Content: + paranoid Suicidal Thoughts: denies suicidal thoughts Homicidal Thoughts: denies homicidal thoughts Insight: + limited insight Judgment: + limited judgement Vital Signs (Past 24 Hours): Last Vital Signs Temp 36.6 C 11/16/22 05:16 Pulse 89 11/16/22 14:33 Resp 20 11/16/22 14:33 BP 96/65 L 11/16/22 14:33 Pulse Ox 95 11/16/22 14:33 O2 Del Method Room Air 11/16/22 14:17 Review of Systems Unobtainable due to mental health condition (delayed responses ) Results & Data (PSY) Laboratory Results low Na+ Medications Administered Sodium Chloride (Nss) 500 mls @ 80 mls/hr IV .Q6H15M CORNELIUS Stop: 12/16/22 07:14 Last Admin: 11/16/22 14:26 Dose: 80 mls/hr Documented By: Infusion: 11/16/22 14:26 Dose: 80 mls/hr Documented By: Admin: 11/16/22 08:20 Dose: 80 mls/hr Documented By: MARK Coding Level of Care Code 80750 IN/OBS CONSULT LVL 2,35M Diagnoses Schizophrenia F20.9 Hyponatremia E87.1 Anxiety and depression F41.9; F32.A Paranoia F22 Time Spent (min) 40
[2022-11-16] MEDS ORDERED: ERGOCALCIFEROL 50,000 UNITS 1250 MCG CAP PO SCH (16:00)
[2022-11-16] MEDS: SODIUM CHLORIDE 0.9% 1000ML 1,000 ML IV SCH (16:15)
[2022-11-16] MEDS: ARIPiprazole 15 MG TAB PO SCH (21:27)
[2022-11-16] MEDS: HEPARIN SOD 5,000 UNIT/0.5 ML VIAL SQ SCH (21:28)
[2022-11-17] MEDS: SODIUM CHLORIDE 0.9% 1000ML 1,000 ML IV SCH ×2 (04:01→16:46)
[2022-11-17 07:21] LABS: BUN Creatinine Ratio 9.1 (10-20); Calcium 8.6 mg/dl (8.6-10.3); Creatinine Clr Calc Pharmacy 145.1 ml/min; Est GFR (African American) 137.2 ml/min; Est GFR (Non-African American) 118.4 ml/min; Phosphorus 3.7 mg/dl (2.5-4.9); Potassium 4.1 mmol/L (3.5-5.1)
[2022-11-17 07:25] LABS: Hematocrit (blood only) 34.1 % (42.0-52.0); Hemoglobin 11.1 g/dl (14.0-18.0); Mean Corpuscular Hemoglobin 27.1 pg (25.0-34.0); Mean Corpuscular Hgb Conc 32.6 g/dL (32.0-36.0); Mean Corpuscular Volume 83.2 fL (80.0-100.0); Mean Platelet Volume 8.1 fL (9.4-12.4); Platelet Count 416 K/uL (130-400); RDW Standard Deviation 42.5 fL (36.4-46.3)
[2022-11-17] MEDS: THIAMINE HCL 100 MG TAB PO SCH (09:19)
[2022-11-17] MEDS: HEPARIN SOD 5,000 UNIT/0.5 ML VIAL SQ SCH ×2 (09:19→20:18)
[2022-11-17] MEDS: CYANOCOBALAMIN (B-12) 500 MCG TABLET PO SCH (09:19)
--- NOTE | 2022-11-17 15:33 | Hospitalist Progress Note ---
Date of Service November 17, 2022 Assessment & Plan (1) Paranoid schizophrenia: Plan: Acute exacerbation of schizophrenia with worsening paranoia Invega was recently switched to Abilify Continue Abilify Psychiatry on board May need inpatient psychiatric hospitalization--to be determined (2) Anxiety and depression: Plan: Continue Vistaril PRN Previously was on short course of ativan for anxiety but this was discontinued on prior admission due to hypotension and drowsiness Monitor (3) Hyponatremia: Plan: Likely due to poor oral intake Abilify likely contributing as well Sodium levels improved to 135 Continue IV fluids Monitor sodium levels (4) Severe protein-calorie malnutrition: Plan: Malnutrition due to poor oral intake related to his paranoia Oral intake better today (5) Hidradenitis suppurativa: Plan: Monitor Plan DVT Px SQ heparin Code Status Full Code Admission and Anticipated Discharge Date Admission Date: November 16, 2022 Subjective Patient is seen and examined at bedside States having chronic tingling numbness of hands Offers no other complaints Sodium levels improved to 135 Denies any chest pain, dyspnea, dizziness, nausea, abdominal pain Review of Systems Review of Systems: All systems reviewed & are unremarkable except as noted in Subjective Physical Exam Physical Exam: Physical Exam: Vitals signs as noted above General Appearance:Moderately built and nourished, Chronic ill appearing Head: normocephalic, Atraumatic Eyes: normal inspection, EOMI Neck: supple, Trachea midline Respiratory/Chest: Normal breath sounds, CTA, No accessory muscle use Cardiovascular: S1, S2, No murmur Abdomen/GI:Soft, Non tender, Bowel sounds present Extremities/Musculoskeletal:normal inspection, no edema Neurologic/Psych:AAOX3, grossly no focal neurological deficits,+Paranoid Skin: normal color, warm Results & Data Results & Data Vital Signs (Past 12 Hours) Vital Signs Temp Pulse Resp BP Pulse Ox O2 Del Method 11/17/22 07:24 37 C 64 18 107/68 95 Room Air Laboratory Results Short CBC 11/17/22 Range/Units 06:31 WBC 6.50 (4.8-10.8) K/ul Hgb 11.1 L (14.0-18.0) g/dl Hct 34.1 L (42.0-52.0) % Plt Count 416 H (130-400) K/uL BMP 11/17/22 06:31 Sodium 135 L Potassium 4.1 Chloride 106 Carbon Dioxide 27 BUN 6 Creatinine 0.66 Glucose 77 Calcium 8.6
--- NOTE | 2022-11-17 16:15 | Psychiatric Progress Note ---
Date of Service November 17, 2022 Impression / Recommendations Impression Diagnostically seems consistent with acute exacerbation of schizophrenia with worsening paranoia and anxiety in context of recent transition from Invega to abilify and recent discontinuation of ativan. However, since being admitted medically he appears consistently calm, slept well last night, is eating well and denies any current concerns except recent paranoia at his home. Hyponatremia is improving with medical interventions, will increase Abilify to further target paranoia which Gurpreet is agreeable to. Reviewed side effects including but not limited to: movement (TD, NMS), cardiac (QTc prolongation), and metabolic (stroke, insulin resistance) and necessity for routine fasting lipid and glucose labwork and AIMS done with score of 0. Will continue to follow and determine if inpatient psychiatric hospitalization will be required based on additional collateral from his father regarding concerns prior to admission. (1) Schizophrenia: (2) Anxiety: (3) Hyponatremia: (4) Paranoia: Plan -Psych liason to get ZAINA to speak with his father and clarify prior to admission symptoms -Increase Abilify to 20mg HS to target recent paranoia -Requested [facility] psychiatry records -Discussed with Dr. Elena Interval History Identifying Information 42 yo man with a history of schizophrenia, depression and anxiety admitted medically for hyponatremia and malnutrition after presenting for worsening of paranoia. Psychiatry consulted for recommendations. Chief Complaint "I'm ok". Review of Systems Notes sleeping and eating well Subjective Subjective Patient was seen & assessed and interval progress reviewed. Behaviorally appropriate, has not required any prn Vistaril for anxiety. Cooperative with medical care. Eating his meals. Describes some recent paranoia where he heard suspicious noises outside his home and called police due to concerns someone might be "messing around". He denies current paranoia which he attributes to being in the hospital. Reviewed that Invega was switched to Abilify a few months ago due to side effects. States his Abilify was last increased a few weeks ago. Denies any current side effects from abilify. Says prior to coming to the hospital he was eating and sleeping "fairly well". Likes spending time doing "music stuff" on his laptop. Denies any current SI, HI, no auditory or visual hallucinations, no delusions. Denies any current anxiety which is significantly at odd's with father's report to ED providers that Gurpreet was not sleeping well and was very anxious. Denies any access to guns. No history of suicide attempts. Physical Exam Psychiatric Orientation: alert, oriented to person and oriented to place Apperance: appropriately dressed and appropriately groomed Eye Contact: + fair eye contact Motor Behavior: no abnormal motor movements Speech: + abnormal rate/rhythm/volume of speech (latent) Affect: + flat affect Mood: no depressed mood and no anxious mood Thought Process: + concrete thought process Thought Content: + paranoid Suicidal Thoughts: denies suicidal thoughts Homicidal Thoughts: denies homicidal thoughts Insight: + limited insight Judgment: + limited judgement Vital Signs (Past 24 Hours) Last Vital Signs Temp 37 C 11/17/22 07:24 Pulse 64 11/17/22 07:24 Resp 18 11/17/22 07:24 BP 107/68 11/17/22 07:24 Pulse Ox 95 11/17/22 07:24 O2 Del Method Room Air 11/17/22 07:24 Results & Data ([facility]) Laboratory Results Laboratory Results - last 24 hr 11/17/22 11/17/22 06:31 06:31 WBC 6.50 RBC 4.10 L Hgb 11.1 L Hct 34.1 L MCV 83.2 MCH 27.1 MCHC 32.6 RDW Std Deviation 42.5 RDW Coeff of Fausto 14.0 Plt Count 416 H MPV 8.1 L Sodium 135 L Potassium 4.1 Chloride 106 Carbon Dioxide 27 Anion Gap 2 L BUN 6 Creatinine 0.66 Est Cr Clr Drug Dosing 145.1 Est GFR ( Amer) 137.2 Est GFR (Non-Af Amer) 118.4 BUN/Creatinine Ratio 9.1 L Glucose 77 Calcium 8.6 Phosphorus 3.7 Magnesium 2.0 Current Inpatient Medications Current Inpatient Medications: Current Inpatient Medications Acetaminophen (Acetaminophen 325 Mg Tab) 650 mg PO Q4H PRN PRN Reason: pain/fever Stop: 12/16/22 14:57 Albuterol (Albuterol Hfa 8 Gm Inhaler) 2 puffs INH Q6 PRN PRN Reason: cough,SOB,wheezing Stop: 12/16/22 14:57 Aripiprazole (Aripiprazole 15 Mg Tab) 15 mg PO HS CORNELIUS Stop: 12/16/22 20:59 Last Admin: 11/16/22 21:27 Dose: 15 mg Cyanocobalamin (Cyanocobalamin (B-12) 500 Mcg Tablet) 1,000 mcg PO DAILY [facility] Stop: 12/17/22 08:59 Last Admin: 11/17/22 09:19 Dose: 1,000 mcg Ergocalciferol (Ergocalciferol 50,000 Units 1250 Mcg Cap) 50,000 units PO Q7D [facility] Stop: 12/16/22 15:59 Last Admin: 11/16/22 17:16 Dose: 50,000 units Heparin Sodium (Porcine) (Heparin Sod 5,000 Unit/0.5 Ml Vial) 5,000 units SQ Q12 [facility] Stop: 12/16/22 20:59 Last Admin: 11/17/22 09:19 Dose: Not Given Hydroxyzine HCl (Hydroxyzine Hcl 25 Mg Tab) 25 mg PO Q8H PRN PRN Reason: Anxiety Stop: 12/16/22 14:57 Sodium Chloride (Nss 1000ml) 1,000 mls @ 80 mls/hr IV .[id number] [facility] Stop: 11/18/22 05:44 Last Admin: 11/17/22 04:01 Dose: 80 mls/hr Thiamine HCl (Thiamine Hcl 100 Mg Tab) 100 mg PO QAM [facility] Stop: 12/17/22 08:59 Last Admin: 11/17/22 09:19 Dose: 100 mg
[2022-11-17] MEDS: ARIPiprazole 15 MG TAB PO SCH (20:20)
[2022-11-18] MEDS: CYANOCOBALAMIN (B-12) 500 MCG TABLET PO SCH (07:53)
[2022-11-18] MEDS: THIAMINE HCL 100 MG TAB PO SCH (07:54)
[2022-11-18 08:26] LABS: BUN Creatinine Ratio 10.3 (10-20); Calcium 8.6 mg/dl (8.6-10.3); Creatinine Clr Calc Pharmacy 140.9 ml/min; Est GFR (African American) 135.6 ml/min; Potassium 4.1 mmol/L (3.5-5.1)
[2022-11-18] MEDS: HEPARIN SOD 5,000 UNIT/0.5 ML VIAL SQ SCH (09:59)
--- NOTE | 2022-11-18 11:27 | Psychiatric Progress Note ---
Date of Service November 18, 2022 Impression / Recommendations Impression Diagnostically seems consistent with acute exacerbation of schizophrenia with worsening paranoia and anxiety prior to admission in context of recent transition from Invega to abilify and recent discontinuation of ativan. However, since being admitted medically he appears consistently calm, has been sleeping well, eating well and has not presented with any signs of acute psychosis. At times he referred to paranoia prior to admission but feels safe returning home and prefers that to psychiatric hospitalization. Does not meet 302 criteria. Collateral from his father reassuring for plan for discharge and if symptoms resume to return to the ED for consideration for psychiatric admission. Increased Abilify dose on discharge in additional attempt to help reduce likelihood of re-emergence of paranoia once home. (1) Schizophrenia: (2) Anxiety: (3) Hyponatremia: (4) Paranoia: Plan -[place] to be psychiatrically stable for discharge home -Dr. Elena will provide script for increased dose of Abilify 20mg HS on discharge -He has outpatient psychiatry follow-up Interval History Identifying Information 42 yo man with a history of schizophrenia, depression and anxiety admitted medically for hyponatremia and malnutrition after presenting for worsening of paranoia. Psychiatry consulted for recommendations. Chief Complaint "I'm ok". Review of Systems Notes sleeping well, eating his meals Subjective Subjective Patient was seen & assessed and interval progress reviewed. Has remained calm and appropriate. Spent the morning on his laptop and listening to music. States his mood is "ok" and that he wants to return home. Feels safe returning home and states he will use his coping skills if he becomes anxious about people outside his home or use the ativan he has at home as this helps. Also feels reassured that the police have investigated and not found anything unusual. Reviewed plan to return to the hospital if anxiety/paranoia worsens at home or if he feels unsafe at which point consideration for inpatient psychiatric hospitalization could be re-assessed and he agrees with this plan. Agrees with plan to try higher dose of Abilify. States he has a follow-up psychiatry appointment. Physical Exam Psychiatric Orientation: alert, oriented to person and oriented to place Apperance: appropriately dressed and appropriately groomed Eye Contact: + fair eye contact Motor Behavior: no abnormal motor movements Speech: normal rate/rhythm/volume of speech (soft spoken) Affect: + flat affect Mood: no depressed mood and no anxious mood Thought Process: + concrete thought process Thought Content: reality based without delusions Suicidal Thoughts: denies suicidal thoughts Homicidal Thoughts: denies homicidal thoughts Insight: + limited insight Judgment: + limited judgement Vital Signs (Past 24 Hours) Last Vital Signs Temp 36.5 C 11/18/22 07:58 Pulse 60 11/18/22 07:58 Resp 16 11/18/22 07:58 BP 121/80 11/18/22 07:58 Pulse Ox 98 11/18/22 07:58 O2 Del Method Room Air 11/18/22 07:58 Results & Data ([facility]) Laboratory Results Laboratory Results - last 24 hr 11/18/22 07:48 Sodium 137 Potassium 4.1 Chloride 108 H Carbon Dioxide 28 Anion Gap 1 L BUN 7 Creatinine 0.68 Est Cr Clr Drug Dosing 140.9 Est GFR ( Amer) 135.6 Est GFR (Non-Af Amer) 117.0 BUN/Creatinine Ratio 10.3 Glucose 91 Calcium 8.6 Current Inpatient Medications Current Inpatient Medications: Current Inpatient Medications Acetaminophen (Acetaminophen 325 Mg Tab) 650 mg PO Q4H PRN PRN Reason: pain/fever Stop: 12/16/22 14:57 Albuterol (Albuterol Hfa 8 Gm Inhaler) 2 puffs INH Q6 PRN PRN Reason: cough,SOB,wheezing Stop: 12/16/22 14:57 Aripiprazole (Aripiprazole 10 Mg Tab) 20 mg PO HS CORNELIUS Stop: 12/18/22 20:59 Cyanocobalamin (Cyanocobalamin (B-12) 500 Mcg Tablet) 1,000 mcg PO DAILY CORNELIUS Stop: 12/17/22 08:59 Last Admin: 11/18/22 07:53 Dose: 1,000 mcg Ergocalciferol (Ergocalciferol 50,000 Units 1250 Mcg Cap) 50,000 units PO Q7D CORNELIUS Stop: 12/16/22 15:59 Last Admin: 11/16/22 17:16 Dose: 50,000 units Heparin Sodium (Porcine) (Heparin Sod 5,000 Unit/0.5 Ml Vial) 5,000 units SQ Q12 CORNELIUS Stop: 12/16/22 20:59 Last Admin: 11/18/22 09:59 Dose: Not Given Hydroxyzine HCl (Hydroxyzine Hcl 25 Mg Tab) 25 mg PO Q8H PRN PRN Reason: Anxiety Stop: 12/16/22 14:57 Thiamine HCl (Thiamine Hcl 100 Mg Tab) 100 mg PO [facility] Stop: 12/17/22 08:59 Last Admin: 11/18/22 07:54 Dose: 100 mg
--- NOTE | 2022-11-18 12:54 | Hospitalist Progress Note ---
Date of Service November 18, 2022 Assessment & Plan (1) Paranoid schizophrenia: Plan: Acute exacerbation of schizophrenia with worsening paranoia Invega was recently switched to Abilify Continue Abilify Appreciate Psychiatry Input Doesn't need inpatient psychiatric hospitalization per Psychiatry Abilify dose increased to 20 mg at bedtime Needs follow-up with psychiatry upon discharge (2) Anxiety and depression: Plan: Continue Vistaril PRN Previously was on short course of ativan for anxiety but this was discontinued on prior admission due to hypotension and drowsiness Monitor (3) Hyponatremia: Plan: Likely due to poor oral intake Abilify likely contributing as well Sodium levels improved to 137 Received IV fluids Monitor sodium levels Oral intake improved (4) Severe protein-calorie malnutrition: Plan: Malnutrition due to poor oral intake related to his paranoia BMI 21 (5) Hidradenitis suppurativa: Plan: Monitor Plan DVT Px SQ heparin Code Status Full Code Disposition Home Admission and Anticipated Discharge Date Admission Date: November 16, 2022 Subjective Patient is seen and examined at bedside States feeling well today Offers no new complaints Discussed with psychiatry today Sodium levels improved to 137 Psychiatry recommends no inpatient psychiatric hospitalization needed Denies any chest pain, dyspnea, dizziness, nausea, abdominal pain Plan to discharge home today Review of Systems Review of Systems: All systems reviewed & are unremarkable except as noted in Subjective Physical Exam Physical Exam: Physical Exam: Vitals signs as noted above General Appearance:Moderately built and nourished, Chronic ill appearing Head: normocephalic, Atraumatic Eyes: normal inspection, EOMI Neck: supple, Trachea midline Respiratory/Chest: Normal breath sounds, CTA, No accessory muscle use Cardiovascular: S1, S2, No murmur Abdomen/GI:Soft, Non tender, Bowel sounds present Extremities/Musculoskeletal:normal inspection, no edema Neurologic/Psych:AAOX3, grossly no focal neurological deficits,+Paranoid Skin: normal color, warm Results & Data Results & Data Vital Signs (Past 12 Hours) Vital Signs Temp Pulse Resp BP Pulse Ox O2 Del Method 11/18/22 07:58 36.5 C 60 16 121/80 98 Room Air Laboratory Results [facility] 11/18/22 07:48 Sodium 137 Potassium 4.1 Chloride 108 H Carbon Dioxide 28 BUN 7 Creatinine 0.68 Glucose 91 Calcium 8.6
--- NOTE | 2022-11-18 13:01 | Discharge Summary ---
Date of Service November 18, 2022 Admission HPI Per Admitting Provider Mr Gurpreet Schroeder is a 42 year old man with a history of paranoid schizophrenia, depression, anxiety, severe protein malnutrition, hidradenitis suppurativa with perirectal abscess who has a history of being institutionalized for his schizophrenia but is currently living with his father was brought in today for worsening paranoia. Patient was previously on Invega for his schizophrenia but stopped taking it due to perceived side effects. His ativan was also recently discontinued on a prior hospitalization due to hypotension and increased somnolence. Currently his schizophrenia and anxiety is uncontrolled. He has had multiple presentations to [facility] for paranoia for the past several days but was cleared and sent home with instructions to follow up with his primary psychiatrist and to return to ER if his symptoms worsens. During this time, his paranoia and anxiety has worsened to the point that his father can no longer care for him. He has been calling the police multiple times a day every day with concerns there are people outside. He has also very diminished oral intake. He reports only eating 1 meal a day, the time of the meal varies but usually it is dinner. When asked why he only eats one meal a day, he begins rambling about "angels and satan" then falls back asleep. When asked why he is so drowsy currently, he reports that his sleep schedule is reversed and that he sleeps during the day and stays up at night. He denies chest pain, shortness of breath, fever/chills, nausea/vomiting/diarrhea. He feels safe right now and does not have suicidal or homicidal thoughts. He agrees that if he begins to have these thoughts that he will let us know. In the ED, labwork revealed a Na of 127 and Hospitalist service was contacted for medical optimization. ER course- ativan 1mg SL at 6am. NSS at 80 cc/hr is currently running Principal Diagnosis Acute exacerbation of schizophrenia with paranoia Hyponatremia Discharge Data Allergies Allergy/AdvReac Type Severity Reaction Status Date / Time Penicillins Allergy Severe Rash Verified 09/28/22 21:10 cefepime Allergy Intermediate lip Verified 09/28/22 21:10 swelling Consultations 11/16/22 07:36 ED Decision to Admit Stat 11/16/22 09:57 Consult Psychiatry Routine Procedures Performed Laboratory Results WBC 6.50 K/ul (4.8-10.8) 11/17/22 06:31 RBC 4.10 M/uL (4.70-6.10) L 11/17/22 06:31 Hgb 11.1 g/dl (14.0-18.0) L 11/17/22 06:31 Hct 34.1 % (42.0-52.0) L 11/17/22 06:31 MCV 83.2 fL (80.0-100.0) 11/17/22 06:31 MCH 27.1 pg (25.0-34.0) 11/17/22 06:31 MCHC 32.6 g/dL (32.0-36.0) 11/17/22 06:31 RDW Std Deviation 42.5 fL (36.4-46.3) 11/17/22 06:31 RDW Coeff of Fausto 14.0 % (11.5-14.5) 11/17/22 06:31 Plt Count 416 K/uL (130-400) H 11/17/22 06:31 MPV 8.1 fL (9.4-12.4) L 11/17/22 06:31 Immature Gran % (Auto) 0.3 % 11/16/22 05:58 Neut % (Auto) 56.5 % 11/16/22 05:58 Lymph % (Auto) 37.0 % 11/16/22 05:58 [place] % (Auto) 4.2 % 11/16/22 05:58 Eos % (Auto) 1.6 % 11/16/22 05:58 Baso % (Auto) 0.4 % 11/16/22 05:58 Neut # (Auto) 5.62 K/uL (1.40-6.50) 11/16/22 05:58 Lymph # (Auto) 3.69 K/uL (1.2-3.4) H 11/16/22 05:58 [place] # (Auto) 0.42 K/uL (0.11-0.59) 11/16/22 05:58 Eos # (Auto) 0.16 K/uL (0-0.50) 11/16/22 05:58 Baso # (Auto) 0.04 K/uL (0-0.2) 11/16/22 05:58 Immature Gran # (Auto) 0.03 K/uL (0.01-0.20) 11/16/22 05:58 Sodium 137 mmol/L (136-145) 11/18/22 07:48 Potassium 4.1 mmol/L (3.5-5.1) 11/18/22 07:48 Chloride 108 mmol/L (98-107) H 11/18/22 07:48 Carbon Dioxide 28 mmol/L (21-32) 11/18/22 07:48 Anion Gap 1 (3-11) L 11/18/22 07:48 BUN 7 mg/dl (6-23) 11/18/22 07:48 Creatinine 0.68 mg/dl (0.6-1.4) 11/18/22 07:48 Est Cr Clr Drug Dosing 140.9 ml/min 11/18/22 07:48 Est GFR ( Amer) 135.6 ml/min 11/18/22 07:48 Est GFR (Non-Af Amer) 117.0 ml/min 11/18/22 07:48 BUN/Creatinine Ratio 10.3 (10-20) 11/18/22 07:48 Glucose 91 mg/dl (70-99(Fasting)) 11/18/22 07:48 Osmolality 264 mOsm/kg (280-300) L 11/16/22 05:58 Calcium 8.6 mg/dl (8.6-10.3) 11/18/22 07:48 Phosphorus 3.7 mg/dl (2.5-4.9) 11/17/22 06:31 Magnesium 2.0 mg/dl (1.7-2.4) 11/17/22 06:31 Total Bilirubin 0.2 mg/dl (0.2-1.0) 11/16/22 05:58 AST 16 U/L (13-39) 11/16/22 05:58 ALT 8 U/L (7-52) 11/16/22 05:58 Alkaline Phosphatase 86 U/L (34-104) 11/16/22 05:58 Total Protein 8.0 gm/dl (6.0-8.3) 11/16/22 05:58 Albumin 4.2 gm/dl (3.4-5.0) 11/16/22 05:58 Globulin 3.8 gm/dl (2.5-4.0) 11/16/22 05:58 Albumin/Globulin Ratio 1.1 (0.9-2) 11/16/22 05:58 TSH 1.162 uIu/ml (0.300-4.500) 11/16/22 05:58 Urine Color Yellow 11/16/22 05:45 Urine Appearance Clear (Clear) 11/16/22 05:45 Urine pH 5.5 (4.5-7.5) 11/16/22 05:45 Ur Specific [place] 1.003 (1.000-1.030) 11/16/22 05:45 Urine Protein Negative (Negative) 11/16/22 05:45 Urine Glucose (UA) Negative (Negative) 11/16/22 05:45 Urine Ketones Negative (Negative) 11/16/22 05:45 Urine Blood Negative (Negative) 11/16/22 05:45 Urine Nitrite Negative (Negative) 11/16/22 05:45 Urine Bilirubin Negative (Negative) 11/16/22 05:45 Urine Urobilinogen Negative (Negative) 11/16/22 05:45 Ur Leukocyte Esterase Negative (Negative) 11/16/22 05:45 Urine Osmolality 56 mOsm/kg (500-800) L 11/16/22 11:45 Salicylates < 3.0 mg/dl (3.0-30) L 11/16/22 05:58 Urine Opiates Screen Neg (Neg) 11/16/22 05:45 Ur Methadone, Qual Neg (Neg) 11/16/22 05:45 Acetaminophen < 3 ug/ml (10-30) L 11/16/22 05:58 Urine Barbiturates Neg (Neg) 11/16/22 05:45 Ur Phencyclidine (PCP) Neg (Neg) 11/16/22 05:45 U Amphetamin/Meth Scrn Neg (Neg) 11/16/22 05:45 MDMA (Ecstasy) Screen Neg (Neg) 11/16/22 05:45 U Benzodiazepines Scrn Neg (Neg) 11/16/22 05:45 Ur Cocaine Metabolite Neg (Neg) 11/16/22 05:45 U Marijuana (THC) Screen Neg (Neg) 11/16/22 05:45 Ethyl Alcohol mg/dL < 10.0 mg/dl (<10.0) 06/27/23 05:58 SARS-CoV-2, RNA, NAAT NEGATIVE (NEGATIVE) 11/16/22 05:58 Hospital Course (1) Paranoid schizophrenia: Acute exacerbation of schizophrenia with worsening paranoia Invega was recently switched to Abilify Continue Abilify Appreciate Psychiatry Input Doesn't need inpatient psychiatric hospitalization per Psychiatry Abilify dose increased to 20 mg at bedtime Needs follow-up with psychiatry upon discharge (2) Anxiety and depression: Continue Vistaril PRN Previously was on short course of ativan for anxiety but this was discontinued on prior admission due to hypotension and drowsiness Monitor (3) Hyponatremia: Likely due to poor oral intake Abilify likely contributing as well Sodium levels improved to 137 Received IV fluids Monitor sodium levels Oral intake improved (4) Severe protein-calorie malnutrition: Malnutrition due to poor oral intake related to his paranoia BMI 21 (5) Hidradenitis suppurativa: Monitor Plan DVT Px SQ heparin Code Status Full Code Disposition Home Total Time Total Time Spent Total Time Spent (In Minutes): 54 minutes Discharge Plan Discharge Items Patient Disposition: Home - Self-Care Reason For Visit: HYPONATREMIA Discharge Diagnosis: Acute exacerbation of schizophrenia with paranoia Hyponatremia Activity: Per Instructions section Exercise/Sports: Gradually increase as tolerated Non-emergency contact: Primary Care Provider and Psychiatrist Call non-emergency contact if: you have any medication questions, your symptoms worsen, your pain is concerning for you and you have a fever Follow-up/Referrals: Kenneth Agrawal DO [Primary Care Provider] - Diet: Regular Diet Texture: Easy to Chew Addtl Attending Provider Instructions: Follow-up with your primary care physician Dr. Agrawal on November 25, 2022 at 1 PM Follow-up with your psychiatrist Dr. Nancy Noel on December 02 at 1 PM as scheduled --- Start taking Abilify 20 mg at bedtime as advised by your psychiatrist. Seek immediate medical attention if your symptoms reoccur or worsen Please take all medications as instructed on discharge list below. Please call if you have any questions or problems. You can reach a [facility] hospitalist on duty at [facility] 24 hours a day by calling [phone] Pending Studies at Discharge: No Stand-Alone Forms: My [facility], Smoking Cessation Medications and DC Order Prescriptions: New aripiprazole [Abilify] 20 mg tablet 20 mg PO HS Qty: 30 0RF Continued cyanocobalamin (vitamin B-12) 1,000 mcg tablet 1,000 mcg PO DAILY thiamine HCl (vitamin B1) 100 mg tablet 100 mg PO QAM albuterol sulfate 90 mcg/actuation HFA aerosol inhaler 2 puff INHALATION Q6 PRN (Reason: cough,SOB,wheezing) acetaminophen 325 mg Tablet 650 mg PO Q6H PRN (Reason: pain) Qty: 60 0RF ergocalciferol (vitamin D2) 1,250 mcg (50,000 unit) Capsule 50,000 unit PO Q7D 42 Days Qty: 6 0RF hydroxyzine pamoate [Vistaril] 25 mg capsule 25 mg PO Q8H PRN (Reason: itching) Qty: 20 0RF ondansetron 4 mg tablet,disintegrating 4 mg PO Q6H PRN (Reason: nausea and vomiting) Qty: 14 0RF Discontinued aripiprazole 10 mg tablet 15 mg PO HS Discharge Orders: Discharge Order (Routine); Ordered 11/18/22 Ordered By: Osmar Elena Admission Data Admit Date/Time: 11/16/22 10:45 Attending Provider: Osmar Elena Admit Provider: Simone East Primary Care Provider: Kenneth Agrawal Other Providers: Simone East ; Abby Aguilar ; Carrie Bucio ; Hemal Little
[2022-11-18] MEDS ORDERED: ARIPiprazole 10 MG TAB PO SCH (21:00)
== END 2022-11-18 15:05 | disposition home or self-care (01) | DRG 885 ==
LOC: ED 05:12 → 3W 10:45 → SUATTDRO 10:45 → 3W 14:33